=== PATIENT | male | born 1935 | race Caucasian/White ===

== ENCOUNTER 2017-01-29 07:54 | Inpatient (IN) | payer OTHER ==
[~2017-01-29] VITALS: Ht 182.9 cm; Wt 76.7 kg
[~2017-01-29 07:54] MED LIST: ASPEC81 PO; CPR500 PO; CRS20 PO; CSPOPS OPR; FENO160T PO; GABA-113 PO; GLUCAGON EMERGENCY IM; HYT/2 PO; INSDGIPEN SC; ISOS60TA25 PO; METO25TA56 PO; NTRGSL/4 UT; OXYC1TAB3 PO; PRLSR20 PO; SERT25TA PO
--- NOTE | 2017-01-29 08:29 | EMERGENCY ROOM VISIT NOTE ---
History First contact with patient: 07:59 Chief Complaint: HYPERGLYCEMIA Stated Complaint: ALTERED MENTAL STATUS/HYPERGLYCEMIA Nursing Triage Summary: Pt found outside this AM by [facility] walking [place] the [place]. No coat, no shoes. Dried blood to mouth, knees, right hand abrasion, and anterior head abrasion. Pt disoriented upon arrival to ED, 10 mins after arrival pt was able to state name and that he [place] with his daughter. BSG reading HIGH for ALS, 269 in ED. +4 pedal edema. History of Present Illness Mr. Arenas is a 81 M who came into the ED by ambulance from [place]. He was found outside of his apartment building, alone, laying on the ground without shoes. Patient's first language is [place], although he is able to tell me his name and can speak some Mongolian. Patient appears to have fallen and injured his knees and his head. He does not recall the fall and he cannot relate to me regarding the events leading up to the fall. Patient expresses that he lives with his daughter. The patient reports some pain in his knees. Review of Systems limited ROS due to mental status, see HPI Past Medical/Surgical History Medical Problems: (1) Fall Social History Smoking Status: Unknown if Ever Smoked Current/Historical Medications Scheduled Aspirin (Aspirin Ec), 81 MG PO DAILY Brimonidine Tartrate-Timolol M (Combigan), 1 DROP OP BID Clobetasol Propionate (Temovate), 1 APPLN TOP BID Finasteride (Proscar), 5 MG PO DAILY Furosemide (Lasix), 40 MG PO DAILY Gabapentin (Neurontin), 600 MG PO BID Insulin Glargine (Lantus), 40 UNITS SC QAM Insulin Lispro (Human) (Humalog Kwikpen), 10 UNITS SQ DAILYBB Insulin Lispro (Human) (Humalog Kwikpen), 8 UNITS SQ BIDM Metoprolol Tartrate (Lopressor) (Lopressor), 25 MG PO BID Nitroglycerin (Nitrostat), 0.4 MG UT PRN Omeprazole (Prilosec), 20 MG PO DAILY Ranitidine Hcl (Zantac), 150 MG PO BID Rosuvastatin Calcium (Crestor), 20 MG PO DAILY Sertraline (Zoloft), 25 MG PO DAILY Terazosin (Hytrin), 5 MG PO HS Triamcinolone Acet (Aristocort 0.1%), 1 APPLN TOP BID Physical Exam Vital Signs Date Time Temp Pulse Resp B/P (MAP) Pulse Ox O2 Delivery O2 Flow Rate FiO2 01/29/17 11:14 81 16 160/79 98 01/29/17 11:04 81 16 160/79 98 Room Air 01/29/17 10:57 98 Room Air 01/29/17 10:01 80 18 145/66 96 Room Air 01/29/17 09:05 77 17 126/67 95 Room Air 01/29/17 08:05 85 01/29/17 07:57 36.6 85 16 122/102 96 Room Air Physical Exam see below General Appearance: WD/WN, no apparent distress Head: normocephalic, atraumatic Eyes: + pertinent finding (cloudying of lens in bilateral eyes) Neck: supple, no adenopathy, thyroid normal Respiratory/Chest: chest non-tender, lungs clear, + decreased breath sounds Cardiovascular: regular rate, rhythm, no edema, no gallop, no JVD Abdomen / GI: normal bowel sounds, non tender, + distended Neurologic/Psych: + pertinent finding (oriented to person, but not to place or time ) Medical Decision & Procedures Laboratory Results 01/29/17 09:00 Red Blood Count 3.89, Mean Corpuscular Volume 93.1, Mean Corpuscular Hemoglobin 30.1, Mean Corpuscular Hemoglobin Concent 32.3, Mean Platelet Volume 11.1, Neutrophils (%) (Auto) 88.4, Lymphocytes (%) (Auto) 5.1, Monocytes (%) (Auto) 6.0, Eosinophils (%) (Auto) 0.1, Basophils (%) (Auto) 0.1, Neutrophils # (Auto) 14.04, Lymphocytes # (Auto) 0.81, Monocytes # (Auto) 0.96, Eosinophils # (Auto) 0.02, Basophils # (Auto) 0.02 01/29/17 09:00 Test 01/29/17 09:00 White Blood Count 15.89 K/uL (4.8-10.8) Red Blood Count 3.89 M/uL (4.7-6.1) Hemoglobin 11.7 g/dL (14.0-18.0) Hematocrit 36.2 % (42-52) Mean Corpuscular Volume 93.1 fL (80-100) Mean Corpuscular Hemoglobin 30.1 pg (25-34) Mean Corpuscular Hemoglobin Concent 32.3 g/dl (32-36) Platelet Count 206 K/uL (130-400) Mean Platelet Volume 11.1 fL (7.4-10.4) Neutrophils (%) (Auto) 88.4 % Lymphocytes (%) (Auto) 5.1 % Monocytes (%) (Auto) 6.0 % Eosinophils (%) (Auto) 0.1 % Basophils (%) (Auto) 0.1 % Neutrophils # (Auto) 14.04 K/uL (1.4-6.5) Lymphocytes # (Auto) 0.81 K/uL (1.2-3.4) Monocytes # (Auto) 0.96 K/uL (0.11-0.59) Eosinophils # (Auto) 0.02 K/uL (0-0.5) Basophils # (Auto) 0.02 K/uL (0-0.2) RDW Standard Deviation 48.8 fL (36.4-46.3) RDW Coefficient of Variation 14.5 % (11.5-14.5) Immature Granulocyte % (Auto) 0.3 % Immature Granulocyte # (Auto) 0.04 K/uL (0.00-0.02) Anion Gap 9.0 mmol/L (3-11) Estimated GFR () 33.6 Estimated GFR (Non- 29.0 BUN/Creatinine Ratio 22.3 (10-20) Calcium Level 8.6 mg/dl (8.5-10.1) Total Bilirubin 0.4 mg/dl (0.2-1) Direct Bilirubin 0.1 mg/dl (0-0.2) Aspartate Amino Transf (AST/SGOT) 19 U/L (15-37) Alanine Aminotransferase (ALT/SGPT) 22 U/L (12-78) Alkaline Phosphatase 96 U/L (45-117) Total Creatine Kinase 192 U/L (39-308) Creatine Kinase MB 2.9 ng/ml (0.5-3.6) Creatine Kinase MB Ratio 1.5 (0-3.0) Troponin I < 0.015 ng/ml (0-0.045) Total Protein 7.7 gm/dl (6.4-8.2) Albumin 3.2 gm/dl (3.4-5.0) Medications Administered Medications (Trade) Dose Ordered Sig/Nato Route Start Time Stop Time Status Last Admin Dose Admin Levofloxacin (Levaquin / D5W) 500 mg NOW STAT IV 01/29/17 09:51 01/29/17 09:56 DC 01/29/17 10:00 500 MG Cefepime HCl 1000 mg/Dextrose 111 ml @ 200 mls/hr ONE STAT IV 01/29/17 09:51 01/29/17 10:24 DC 01/29/17 11:00 200 MLS/HR Vancomycin HCl 1000 mg/Sodium Chloride 270 ml @ 125 mls/hr NOW STAT IV 01/29/17 09:51 01/29/17 12:00 01/29/17 11:01 125 MLS/HR ECG Rate (beats per minute): 86 Rhythm: normal sinus ED Course 815 History and Physical performed 825 Ordered labs and test; CT of the head w/o contrast, CBC, PRP, LFT, CKMB, Troponin, CK, EKG, CXR [address] and CXR 900 Reaccessed patient 915 Reviewed patients Labs 1030 Reaccessed patient using translation services Medical Decision 81 yo male comes into the ED after suffering a fall and injuring his knees and head. Considering the following differential; CVA, ACS, sepsis, rhabdomyolysis Contact with the patient is difficult and its unclear of this is due to language barrier, underlying dementia, or alter mental status from the fall. Will be working with case management to get a clearer picture of the patients past medical history. There are no available records at this time. The patient was found on the ground outside in the cold, alone outside of his apartment complex. Police did not provide a contact for family. Initial evaluation showed abrasions of bilateral knees and of his left hand. Patient also had a abrasion on the top of his head. He does not appear to have any fractures of the pelvis or extremities. Initial workup includes; CT w/o contrast, CBC, PRP, LFT, CK, CKMB, troponin, EKG , CXR. Would like to access for underlying causes for fall and subsequent consequences of the fall. Patient had a rectal temp of 36.6 on arrival and a blood glucose of 269. CT did not show an acute bleed. Patient was found to have a elevated WBC and signs on PNA on CXR. Treating the patient broadly for a pulmonary source; Levaquin, Vanco, Cefepime. Discussed admission with the hospitalist, patient is being admitted for a further work up of PNA and weakness. Family has been contacted by case management and son, Negro will be at the hospital by noon. Negro's phone #: [phone]. Patient also has been admitted previously to [facility], see medical # [id number]. Spoke with the patient through a translation service; patient does express some chest pain. Troponin and EKG were unremarkable. Will follow serial troponin. Impression Primary Impression: Pneumonia Additional Impression: Weakness Departure Information Referrals No Doctor, Assigned (PCP) Patient Instructions [facility] Problem Qualifiers
--- NOTE | 2017-01-29 08:53 | DIAGNOSTIC IMAGING REPORT ---
CT OF THE HEAD WITHOUT CONTRAST CLINICAL HISTORY: Head injury. Altered mental status. COMPARISON STUDY: No previous studies for comparison. CT DOSE: 537.48 mGy.cm TECHNIQUE: Helical axial images of the head were obtained without IV contrast. Automated exposure control was utilized for the study. A dose lowering technique was utilized adhering to the principles of ALARA. FINDINGS: No acute intracranial hemorrhage, midline shift or mass effect is present. Ventricular system is unremarkable for age. Basilar cisterns are patent. There are no extra-axial collections. There are no findings to suggest acute dural sinus thrombosis or acute territorial infarct. Mild white matter hypodensity suggests small vessel disease. There is no calvarial fracture. There is an 8 mm density within the left parietal scalp. Visualized portions of the sinuses and mastoid air cells are clear. IMPRESSION: 1. No acute intracranial findings. 2. No calvarial fracture. Electronically signed by: Oj Arellano M.D. 01/29/2017 8:51 AM Dictated Date/Time: 01/29/2017 8:41 AM
--- NOTE | 2017-01-29 09:00 | DIAGNOSTIC IMAGING REPORT ---
CHEST ONE VIEW PORTABLE CLINICAL HISTORY: Weakness. Fall. COMPARISON STUDY: No previous studies for comparison. FINDINGS: Lung volumes are normal. There is no pneumothorax or pleural effusion. Bibasilar opacities are present. Note is made of mild cardiomegaly without evidence of pulmonary edema. IMPRESSION: 1. Bibasilar opacities which favor atelectasis although pneumonia could appear similar. Radiographic follow-up is recommended. 2. Mild cardiomegaly without evidence of pulmonary edema. Electronically signed by: Oj Arellano M.D. 01/29/2017 8:58 AM Dictated Date/Time: 01/29/2017 8:51 AM
[2017-01-29 09:17] LABS: HEMATOCRIT 36.2 % (42-52); MEAN CELL VOLUME 93.1 fL (80-100); MEAN CORPUSCULAR HEMOGLOBIN 30.1 pg (25-34); MEAN CORPUSCULAR HGB CONC 32.3 g/dl (32-36); MEAN PLATELET VOLUME 11.1 fL (7.4-10.4); PLATELET COUNT 206 K/uL (130-400); RED BLOOD COUNT 3.89 M/uL (4.7-6.1); WHITE BLOOD COUNT 15.89 K/uL (4.8-10.8)
[2017-01-29 09:37] LABS: ALT/SGPT 22 U/L (12-78); BLOOD UREA NITROGEN 46 mg/dl (7-18); BUN/CREATININE RATIO 22.3 (10-20); CALCIUM 8.6 mg/dl (8.5-10.1); CARBON DIOXIDE 25 mmol/L (21-32); CHLORIDE 100 mmol/L (98-107); CREATININE 2.08 mg/dl (0.60-1.40); GLUCOSE 300 mg/dl (70-99); POTASSIUM 4.8 mmol/L (3.5-5.1); SODIUM 134 mmol/L (136-145)
[2017-01-29 09:42] LABS: ALKALINE PHOSPHATASE 96 U/L (45-117); AST/SGOT 19 U/L (15-37); CKMB/CK RATIO 1.5 (0-3.0)
[2017-01-29 09:45] LABS: BASO % 0.1 %; BASO ABS # 0.02 K/uL (0-0.2); COMPLETE YES; EOS % 0.1 %; IG% 0.3 %; LYMPH % 5.1 %; LYMPH ABS # 0.81 K/uL (1.2-3.4); NEUT % 88.4 %
[2017-01-29] MEDS ORDERED: LEVAQUIN 500MG / 100ML D5W IV STA (09:51)
[2017-01-29] MEDS ORDERED: CEFEPIME IV 1,000 MG in DEXTROSE 5% 100ML 100 ML IV STA (09:51)
[2017-01-29] MEDS ORDERED: VANCOMYCIN INJ 1,000 MG in SODIUM CHLORIDE 0.9% 250ML 250 ML IV STA (09:51)
--- NOTE | 2017-01-29 10:20 | EMERGENCY ROOM VISIT NOTE ---
ED Visit Note First contact with patient: 07:58 Resident Physician Supervision Note: I interviewed and examined the patient. Discussed with Dr. Dunbar and agree with findings and plan as documented in the note. Documented By: Andrea Medrano Current/Historical Medications Unable to Obtain Active Prescriptions or Reported Meds Vital Signs Date Time Temp Pulse Resp B/P (MAP) Pulse Ox O2 Delivery O2 Flow Rate FiO2 01/29/17 10:01 80 18 145/66 96 Room Air 01/29/17 09:05 77 17 126/67 95 Room Air 01/29/17 08:05 85 01/29/17 07:57 36.6 85 16 122/102 96 Room Air Laboratory Results 01/29/17 09:00 Red Blood Count 3.89, Mean Corpuscular Volume 93.1, Mean Corpuscular Hemoglobin 30.1, Mean Corpuscular Hemoglobin Concent 32.3, Mean Platelet Volume 11.1, Neutrophils (%) (Auto) 88.4, Lymphocytes (%) (Auto) 5.1, Monocytes (%) (Auto) 6.0, Eosinophils (%) (Auto) 0.1, Basophils (%) (Auto) 0.1, Neutrophils # (Auto) 14.04, Lymphocytes # (Auto) 0.81, Monocytes # (Auto) 0.96, Eosinophils # (Auto) 0.02, Basophils # (Auto) 0.02 01/29/17 09:00 Test 01/29/17 09:00 White Blood Count 15.89 K/uL (4.8-10.8) Red Blood Count 3.89 M/uL (4.7-6.1) Hemoglobin 11.7 g/dL (14.0-18.0) Hematocrit 36.2 % (42-52) Mean Corpuscular Volume 93.1 fL (80-100) Mean Corpuscular Hemoglobin 30.1 pg (25-34) Mean Corpuscular Hemoglobin Concent 32.3 g/dl (32-36) Platelet Count 206 K/uL (130-400) Mean Platelet Volume 11.1 fL (7.4-10.4) Neutrophils (%) (Auto) 88.4 % Lymphocytes (%) (Auto) 5.1 % Monocytes (%) (Auto) 6.0 % Eosinophils (%) (Auto) 0.1 % Basophils (%) (Auto) 0.1 % Neutrophils # (Auto) 14.04 K/uL (1.4-6.5) Lymphocytes # (Auto) 0.81 K/uL (1.2-3.4) Monocytes # (Auto) 0.96 K/uL (0.11-0.59) Eosinophils # (Auto) 0.02 K/uL (0-0.5) Basophils # (Auto) 0.02 K/uL (0-0.2) RDW Standard Deviation 48.8 fL (36.4-46.3) RDW Coefficient of Variation 14.5 % (11.5-14.5) Immature Granulocyte % (Auto) 0.3 % Immature Granulocyte # (Auto) 0.04 K/uL (0.00-0.02) Anion Gap 9.0 mmol/L (3-11) Estimated GFR () 33.6 Estimated GFR (Non- 29.0 BUN/Creatinine Ratio 22.3 (10-20) Calcium Level 8.6 mg/dl (8.5-10.1) Total Bilirubin 0.4 mg/dl (0.2-1) Direct Bilirubin 0.1 mg/dl (0-0.2) Aspartate Amino Transf (AST/SGOT) 19 U/L (15-37) Alanine Aminotransferase (ALT/SGPT) 22 U/L (12-78) Alkaline Phosphatase 96 U/L (45-117) Total Creatine Kinase 192 U/L (39-308) Creatine Kinase MB 2.9 ng/ml (0.5-3.6) Creatine Kinase MB Ratio 1.5 (0-3.0) Troponin I < 0.015 ng/ml (0-0.045) Total Protein 7.7 gm/dl (6.4-8.2) Albumin 3.2 gm/dl (3.4-5.0) Medications Administered Medications (Trade) Dose Ordered Sig/Nato Route Start Time Stop Time Status Last Admin Dose Admin Levofloxacin (Levaquin / D5W) 500 mg NOW STAT IV 01/29/17 09:51 01/29/17 09:56 DC 01/29/17 10:00 500 MG Departure Information Impression Primary Impression: Pneumonia Additional Impression: Weakness Prescriptions Unable to Obtain Active Prescriptions or Reported Meds Referrals Manjeet Mosley III, M.D. (PCP) Patient Instructions My [facility] Problem Qualifiers
[2017-01-29] MEDS ORDERED: CONSULT PHARMACY STA (10:33)
[2017-01-29] MEDS ORDERED: PHARMACY GLYCEMIC MGMT CONSULT STA (10:36)
[2017-01-29] MEDS ORDERED: GLUCOSE 40% GEL 15 GM TUBE PO PRN (10:45)
[2017-01-29] MEDS ORDERED: GLUCAGON FOR INJ 1 MG VIAL SQ PRN (10:45)
[2017-01-29] MEDS ORDERED: GLUCOSE 10 TABS/TUBE PO PRN (10:45)
[2017-01-29] MEDS ORDERED: DEXTROSE 50% 50 ML SYR IV PRN (10:45)
[2017-01-29 10:57] VITALS: O2SAT 98; BMI 21.8
[2017-01-29] MEDS ORDERED: ONDANSETRON INJ 2 MG/ML 2 ML VIAL IV PRN (11:00)
[2017-01-29] MEDS ORDERED: CLOB1OIN2 TOP (11:44)
[2017-01-29] MEDS ORDERED: INSDGI SC (11:44)
[2017-01-29] MEDS ORDERED: TRMCR130WC TOP (11:44)
[2017-01-29] MEDS ORDERED: TERA5CAP PO (11:44)
[2017-01-29] MEDS ORDERED: BRIM0.2S OP (11:44)
[2017-01-29] MEDS ORDERED: METO25TA56 PO (11:44)
[2017-01-29] MEDS ORDERED: FRS/40 PO (11:44)
[2017-01-29] MEDS ORDERED: RANI150T3 PO (11:44)
[2017-01-29] MEDS ORDERED: INSU100I2 SQ ×2 (11:44)
[2017-01-29] MEDS ORDERED: ASPI81TA28 PO (11:44)
[2017-01-29] MEDS ORDERED: FINA5TAB PO (11:44)
[2017-01-29] MEDS ORDERED: NITR0.4S UT (11:44)
[2017-01-29] MEDS ORDERED: GABA-113 PO (11:44)
[2017-01-29] MEDS ORDERED: OMEP20CA59 PO (11:44)
[2017-01-29] MEDS ORDERED: SERT25TA PO (11:44)
[2017-01-29] MEDS ORDERED: ROSU20TA PO (11:44)
[2017-01-29] MEDS ORDERED: VANCOMYCIN CONSULT ACTIVE PRN (12:15)
[2017-01-29] MEDS ORDERED: DOXYCYCLINE PHARMACY CONSULT IN PROGRESS PRN (12:15)
[2017-01-29] MEDS ORDERED: PIPERACILL/TAZOBAC CONSULT ACTIVE PRN (12:15)
[2017-01-29] MEDS ORDERED: PIPERACILL/TAZOBAC IV 3.375 GM in DEXTROSE 5% 100ML IV ONE (12:45)
[2017-01-29] MEDS: INSULIN ASPART 100 UNITS/ML 3 ML PEN SC SCH ×3 (13:12→20:37)
[2017-01-29] MEDS ORDERED: SODIUM CHLORIDE 0.9% 1000ML 1,000 ML IV SCH (13:30)
--- NOTE | 2017-01-29 14:33 | Pharmacy Progress Note ---
Glycemic Control Intl Consult Date of Service Jan 29, 2017. Scope Glycemic Pharmacist consulted by Dr Reyes on 01/29 for glycemic control and to write orders per [facility] inpatient glycemic control protocol Objective Weight (Kilograms): 73.000 Accuchecks BSG (last 24hrs): Test 01/29/17 09:00 01/29/17 13:01 Random Glucose 300 mg/dl (70-99) Bedside Glucose 320 mg/dl (70-99) Laboratory Data (last 24hrs) Test 01/29/17 09:00 Anion Gap 9.0 mmol/L BUN/Creatinine Ratio 22.3 Blood Urea Nitrogen 46 mg/dl Creatinine 2.08 mg/dl Potassium Level 4.8 mmol/L Sodium Level 134 mmol/L White Blood Count 15.89 K/uL Red Blood Count 3.89 M/uL Hemoglobin 11.7 g/dL Hematocrit 36.2 % Mean Corpuscular Volume 93.1 fL Mean Corpuscular Hemoglobin 30.1 pg Mean Corpuscular Hemoglobin Concent 32.3 g/dl Platelet Count 206 K/uL Mean Platelet Volume 11.1 fL Neutrophils (%) (Auto) 88.4 % Lymphocytes (%) (Auto) 5.1 % Monocytes (%) (Auto) 6.0 % Eosinophils (%) (Auto) 0.1 % Basophils (%) (Auto) 0.1 % Neutrophils # (Auto) 14.04 K/uL Lymphocytes # (Auto) 0.81 K/uL Monocytes # (Auto) 0.96 K/uL Eosinophils # (Auto) 0.02 K/uL Basophils # (Auto) 0.02 K/uL Recent Pertinent Medications Outpatient Anti-diabetic Regimen: * lantus 40 QD; humalog 10 units with breakfast/ 8 units with lunch and dinner; CF 1:40 if >180 at bedtime * A1c = 8.4 % 06/05/16 Risk Factors for Insulin Resistance: * Infection: possible pneumonia/sepsis * Diet: T2DM Assessment & Plan ASSESSMENT: * Patient came to ER altered after fall this morning. It is unknown if he took his morning dose of lantus. For this reason, will employ a lantus scale at dinner to ensure adequate coverage safely. PLAN FOR INPATIENT GLYCEMIC CONTROL: * Holding outpatient oral diabetes medications * Basal insulin with LANTUS 20 units SQ at dinner (if BSG < 200) or 40 units SQ at dinner (if BSG > 200) * Basal insulin with LANTUS 21 units SQ BID starting tomorrow * Correctional Insulin with NOVOLOG per scale ACHS or Q6hrs while NPO * Goal Range: Low 120 mg/dL - High 160 mg/dL * Correction Factor: 20 mg/dL/unit * Nutritional / Prandial insulin per carb ratio of 1 unit per 6 grams CHO consumed * Please note that the plan above was derived based on current level of insulin resistance and hospital stress. These recommendations are appropriate for inpatient admission only. Plan of care upon discharge will need to be reassessed to avoid potential outpatient hypo/hyperglycemia. Thank you.
[2017-01-29] MEDS ORDERED: INFLUENZA ADMINISTRATION CHARGE ONE (15:15)
[2017-01-29] MEDS ORDERED: PNEUMOCOCCAL ADMINISTRATION CHARGE ONE (15:15)
[2017-01-29] MEDS ORDERED: INFLUENZA VIRUS QUAD VACCINE 0.5 ML SYR IM. ONE (15:15)
[2017-01-29] MEDS ORDERED: PNEUMOCOCCAL POLYSACCHARIDES 25 MCG/0.5 ML VIAL/SYR IM. ONE (15:15)
--- NOTE | 2017-01-29 15:24 | DIAGNOSTIC IMAGING REPORT ---
LEFT KNEE 2 VIEWS CLINICAL HISTORY: Left knee pain. FINDINGS: AP and lateral views of the left knee are obtained. No prior studies are available for comparison at the time of dictation. The skeletal structures are osteopenic. No fracture is seen. There is mild to moderate tricompartmental degenerative joint space narrowing, greatest at the patellofemoral articulation. Chondrocalcinosis is suggested in the lateral compartment. There are small marginal osteophytes. No joint effusion is seen. Mild soft tissue swelling is observed around ankle. Advanced atherosclerotic calcification is seen in the regional arteries. IMPRESSION: 1. Soft tissue swelling with no radiographic evidence of left knee fracture. 2. Osteopenia and degenerative change as above. Electronically signed by: Chidi rBadshaw M.D. 01/29/2017 3:22 PM Dictated Date/Time: 01/29/2017 3:21 PM
--- NOTE | 2017-01-29 15:25 | DIAGNOSTIC IMAGING REPORT ---
BONY ORBITS 3 VIEWS CLINICAL HISTORY: MRI clearance. FINDINGS: 3 views of the bony orbits are obtained. Correlation is made with CT of the brain dated 01/29/2017. There are 2 small metallic foreign bodies identified in the right orbital space. The bony orbits are intact as imaged. The visualized paranasal sinuses and the mastoid air cells appear clear. The imaged calvarium appears intact. IMPRESSION: There are 2 small radiodense metallic foreign bodies identified in the right orbital space. These were also seen by CT on 01/29/2017. Electronically signed by: Chidi Bradshaw M.D. 01/29/2017 3:24 PM Dictated Date/Time: 01/29/2017 3:22 PM
--- NOTE | 2017-01-29 15:28 | DIAGNOSTIC IMAGING REPORT ---
L SHOULDER MIN 2 VIEWS ROUTINE CLINICAL HISTORY: Left shoulder pain status post trauma COMPARISON: None. DISCUSSION: No fractures or dislocations are visualized. No destructive lesions are visualized. There are no visible particular calcifications. IMPRESSION: No fractures or dislocations identified. Electronically signed by: Jose Manuel Mcguire M.D. 01/29/2017 3:26 PM Dictated Date/Time: 01/29/2017 3:25 PM
[2017-01-29] MEDS ORDERED: PHARMACY GLYCEMIC MGMT CONSULT PRN (15:30)
--- NOTE | 2017-01-29 15:31 | DIAGNOSTIC IMAGING REPORT ---
RIBS BILATERAL 8 VIEWS CLINICAL HISTORY: Rib pain status post trauma COMPARISON STUDY: Chest x-ray dated 01/29/2017 FINDINGS: There is no pneumothorax. No right-sided rib fractures are visualized. There is an age-indeterminate fracture the left fourth rib laterally. Please correlate with the patient's site of pain. There is subsegmental atelectatic changes at the left lung base. IMPRESSION: 1. No evidence of pneumothorax 2. Age-indeterminate nondisplaced fracture of the left fourth rib laterally Electronically signed by: Jose Manuel Mcguire M.D. 01/29/2017 3:30 PM Dictated Date/Time: 01/29/2017 3:26 PM
--- NOTE | 2017-01-29 15:40 | DIAGNOSTIC IMAGING REPORT ---
LEFT HUMERUS 2 VIEWS CLINICAL HISTORY: Left arm pain. Fall. FINDINGS: AP and lateral views of the left humerus are obtained. No prior studies are available for comparison at the time of dictation. The skeletal structures are osteopenic. There is no radiographic evidence of left humeral fracture. The shoulder and elbow joints are grossly maintained. An IV catheter is present in the antecubital fossa. The overlying soft tissues are normal in appearance. The imaged left lung parenchyma appears clear. IMPRESSION: Osteopenia with no radiographic evidence of left humeral fracture. Electronically signed by: Chidi Bradshaw M.D. 01/29/2017 3:39 PM Dictated Date/Time: 01/29/2017 3:39 PM
--- NOTE | 2017-01-29 15:43 | DIAGNOSTIC IMAGING REPORT ---
LEFT HIP 2 VIEWS; LEFT FEMUR 3 VIEWS CLINICAL HISTORY: Fall with left leg pain. FINDINGS: AP and frog-leg views of the left hip with AP, frog-leg, and lateral views of the left femur are obtained. No prior studies are available for comparison at the time of dictation. The skeletal structures are osteopenic. There is no radiographic evidence of left femoral fracture. The visualized left hemipelvis appears intact. Mild arthritic change is seen in the left hip and knee joints. Mild sclerotic change is observed in the left sacroiliac joint. Lumbosacral spondylosis is partially imaged. There is advanced atherosclerotic calcification of the left lower extremity arteries. The overlying soft tissues are within normal limits. IMPRESSION: Osteopenia with no radiographic evidence of fracture involving the left hip or the left femur. Electronically signed by: Chidi Bradshaw M.D. 01/29/2017 3:41 PM Dictated Date/Time: 01/29/2017 3:40 PM
--- NOTE | 2017-01-29 15:56 | DIAGNOSTIC IMAGING REPORT ---
ULTRASOUND BILATERAL LOWER EXTREMITY VENOUS CLINICAL HISTORY: Change in mental status. Leg swelling. COMPARISON STUDY: No priors. TECHNIQUE: Real-time, grayscale, and color Doppler sonography of the deep veins of the right and left lower extremity was performed from the inguinal crease to the calf. Compression and augmentation were utilized. FINDINGS: There is no sonographic evidence of acute deep venous thrombosis identified in the right or left lower extremity. Minimal thickening is suggested involving the wall of the right common femoral and superficial femoral veins. This likely represents trace chronic thrombus. The common femoral, superficial femoral, and popliteal veins are patent and normally compressible bilaterally. The greater saphenous vein and the profunda femoris vein at the junction with the common femoral vein are clear in both legs. The visualized calf veins are patent bilaterally. IMPRESSION: 1. There is no sonographic evidence of acute deep venous thrombosis identified in the right or left lower extremity. 2. Trace chronic thrombus is suggested within the right common femoral and superficial femoral veins. Electronically signed by: Chidi Bradshaw M.D. 01/29/2017 3:55 PM Dictated Date/Time: 01/29/2017 3:53 PM
[2017-01-29 16:23] VITALS: BP 138/72; PULSE 83; TEMP 36.8; O2SAT 93
[2017-01-29] MEDS ORDERED: INSULIN GLARGINE SOLOSTAR 100 UNITS/ML 3 ML PEN SC ONE (17:00)
[2017-01-29] MEDS: DOXYCYCLINE HYCLATE 100 MG in DEXTROSE 5% 100ML IV SCH (18:03)
[2017-01-29 18:29] LABS: CKMB/CK RATIO 1.3 (0-3.0)
[2017-01-29 19:44] VITALS: BP 130/67; PULSE 82; TEMP 37.2; O2SAT 96
[2017-01-29 20:00] VITALS: O2SAT 96
[2017-01-29] MEDS: PIPERACILL/TAZOBAC IV 3.375 GM in DEXTROSE 5% 100ML IV SCH (20:06)
[2017-01-29] MEDS: CLOBETASOL PROPIONATE 0.05% OINT 15 GM TUBE EXT SCH (20:26)
[2017-01-29] MEDS: GABAPENTIN 600 MG TAB PO SCH (20:28)
[2017-01-29] MEDS: METOPROLOL TARTRATE 25 MG TAB PO SCH (20:28)
[2017-01-29] MEDS: RANITIDINE HCL 150 MG TAB PO SCH (20:29)
--- NOTE | 2017-01-29 21:33 | History and Physical ---
History & Physical Date & Time of Service: Jan 29, 2017 at 20:58 Chief Complaint: FALL Primary Care Physician: Manjeet Mosley III, M.D. History of Present Illness Source: patient, family (nephew Negro) 81 year old male with history of CAD, DM 2 on Insulin, DM Retinopathy/Glaucoma, Hypertension, Memory Loss and other problems noted below presenting with a fall. Patient follows with Dr. Mosley for PCP and [facility]. History obtained mostly from patient, using golf professional via [employer]. Later on supplemented by interviewing patient's nephew Negro over the phone. Patient apparently has very poor vision and should not be walking outside alone as per nephew. This morning patient states he went out of the house to go somewhere "in the town". The nephew mentions patient must have been confused this morning and is wondering if one of his medications is making the patient confused. Patient apparently was walking down a few steps when he lost his balance and fell on the floor. He was to weak to get up, was found on the ground, without shoes. Hence was brought to the ED. Patient's Ct head negative for acute process. CXR shows bibasilar opacities: pneumonia vs. atelectasis WBC 15k. He was given Vanco + Cefepime at the ER. On exam, patient was not in distress, appears comfortable. Main report is left sided chest wall pain, left upper arm pain and left leg pain , worse with movement. Denies dyspnea, nausea, palpitations, dizziness. Denies other symptoms. States he was feeling fine prior to his fall. No other symptoms. Family History Diabetes mellitus BROTHER BROTHER FH: coronary artery disease FATHER Social History Smoking Status: Never Smoker Smokeless Tobacco Use: No Alcohol Use: none Drug Use: none Marital Status: Housing status: lives with family Allergies Coded Allergies: Metformin (Unverified Allergy, Unknown, ., 01/29/17) Salicylates (Unverified Allergy, Unknown, ., 01/29/17) Home Medications Scheduled Aspirin (Aspirin Ec), 81 MG PO DAILY Brimonidine Tartrate-Timolol M (Combigan), 1 DROP OP BID Clobetasol Propionate (Temovate), 1 APPLN TOP BID Finasteride (Proscar), 5 MG PO DAILY Furosemide (Lasix), 40 MG PO DAILY Gabapentin (Neurontin), 600 MG PO BID Insulin Glargine (Lantus), 40 UNITS SC QAM Insulin Lispro (Human) (Humalog Kwikpen), 10 UNITS SQ DAILYBB Insulin Lispro (Human) (Humalog Kwikpen), 8 UNITS SQ BIDM Metoprolol Tartrate (Lopressor) (Lopressor), 25 MG PO BID Nitroglycerin (Nitrostat), 0.4 MG UT PRN Omeprazole (Prilosec), 20 MG PO DAILY Ranitidine Hcl (Zantac), 150 MG PO BID Rosuvastatin Calcium (Crestor), 20 MG PO DAILY Sertraline (Zoloft), 25 MG PO DAILY Terazosin (Hytrin), 5 MG PO HS Triamcinolone Acet (Aristocort 0.1%), 1 APPLN TOP BID Review of Systems Constitutional- no fever; no weight loss Eyes- no acute visual changes ENT- no sinus drainage; no pharyngitis Pulmonary- no cough, no wheezing, no shortness of breath Cardiac- (+) chest wall pain, no palpitations, no orthopnea, no dependent edema GI- no nausea, no vomiting, no diarrhea, no melena, no hematochezia - no dysuria, no hematuria Musculoskeletal- (+) as noted above Derm- no rashes, no new skin lesions, no changing skin lesions Hematologic- no unusual bruising, no unusual bleeding Lymphatics- no adenopathy Endocrine- no polyuria or polydipsia; no heat or cold intolerance Neuro- no headaches, no focal neurologic symptoms Psych- no anxiety, no depression Physical Exam Vital Signs Date Time Temp Pulse Resp B/P (MAP) Pulse Ox O2 Delivery O2 Flow Rate FiO2 01/29/17 19:44 37.2 82 15 130/67 (88) 96 Room Air 01/29/17 16:23 36.8 83 19 138/72 (94) 93 Room Air 01/29/17 11:14 81 16 160/79 98 01/29/17 11:04 81 16 160/79 98 Room Air 01/29/17 10:57 98 Room Air 01/29/17 10:01 80 18 145/66 96 Room Air 01/29/17 09:05 77 17 126/67 95 Room Air 01/29/17 08:05 85 01/29/17 07:57 36.6 85 16 122/102 96 Room Air General Appearance: WD/WN, no apparent distress Head: normocephalic, atraumatic Eyes: normal inspection, PERRL, EOMI, sclerae normal ENT: normal ENT inspection, hearing grossly normal, TMs normal, pharynx normal Neck: supple, no adenopathy, thyroid normal, no JVD, trachea midline Respiratory/Chest: chest non-tender, lungs clear, normal breath sounds, no respiratory distress, no accessory muscle use Cardiovascular: regular rate, rhythm, no gallop, no JVD, no murmur, normal peripheral pulses Abdomen/GI: normal bowel sounds, non tender, soft, no organomegaly Back: normal inspection, no CVA tenderness Extremities/Musculoskelatal: + pertinent finding ((+) grade 1 lower leg edema) Neurologic/Psych: no motor/sensory deficits, alert, normal mood/affect, normal reflexes, oriented x 3, + pertinent finding ((+) poor vision- counting fingers only) Skin: normal color, warm/dry, no rash Lymphatic: no adenopathy Diagnostics Laboratory Results Results Past 24 Hours Test 01/29/17 09:00 01/29/17 13:01 01/29/17 16:10 01/29/17 17:51 Range/Units White Blood Count 15.89 4.8-10.8 K/uL Red Blood Count 3.89 4.7-6.1 M/uL Hemoglobin 11.7 14.0-18.0 g/dL Hematocrit 36.2 42-52 % Mean Corpuscular Volume 93.1 80-100 fL Mean Corpuscular Hemoglobin 30.1 25-34 pg Mean Corpuscular Hemoglobin Concent 32.3 32-36 g/dl Platelet Count 206 130-400 K/uL Mean Platelet Volume 11.1 7.4-10.4 fL Neutrophils (%) (Auto) 88.4 % Lymphocytes (%) (Auto) 5.1 % Monocytes (%) (Auto) 6.0 % Eosinophils (%) (Auto) 0.1 % Basophils (%) (Auto) 0.1 % Neutrophils # (Auto) 14.04 1.4-6.5 K/uL Lymphocytes # (Auto) 0.81 1.2-3.4 K/uL Monocytes # (Auto) 0.96 0.11-0.59 K/uL Eosinophils # (Auto) 0.02 0-0.5 K/uL Basophils # (Auto) 0.02 0-0.2 K/uL RDW Standard Deviation 48.8 36.4-46.3 fL RDW Coefficient of Variation 14.5 11.5-14.5 % Immature Granulocyte % (Auto) 0.3 % Immature Granulocyte # (Auto) 0.04 0.00-0.02 K/uL Sodium Level 134 136-145 mmol/L Potassium Level 4.8 3.5-5.1 mmol/L Chloride Level 100 98-107 mmol/L Carbon Dioxide Level 25 21-32 mmol/L Anion Gap 9.0 3-11 mmol/L Blood Urea Nitrogen 46 7-18 mg/dl Creatinine 2.08 0.60-1.40 mg/dl Estimated GFR () 33.6 Estimated GFR (Non- 29.0 BUN/Creatinine Ratio 22.3 10-20 Random Glucose 300 70-99 mg/dl Calcium Level 8.6 8.5-10.1 mg/dl Total Bilirubin 0.4 0.2-1 mg/dl Direct Bilirubin 0.1 0-0.2 mg/dl Aspartate Amino Transf (AST/SGOT) 19 15-37 U/L Alanine Aminotransferase (ALT/SGPT) 22 12-78 U/L Alkaline Phosphatase 96 45-117 U/L Total Creatine Kinase 192 206 39-308 U/L Creatine Kinase MB 2.9 2.7 0.5-3.6 ng/ml Creatine Kinase MB Ratio 1.5 1.3 0-3.0 Troponin I < 0.015 < 0.015 0-0.045 ng/ml Total Protein 7.7 6.4-8.2 gm/dl Albumin 3.2 3.4-5.0 gm/dl Bedside Glucose 320 255 70-99 mg/dl Microbiology Results 01/29/17 Blood Culture, Received Pending 01/29/17 Blood Culture, Received Pending Diagnostic Radiology [~ rep ct add3]] CHEST ONE VIEW PORTABLE CLINICAL HISTORY: Weakness. Fall. COMPARISON STUDY: No previous studies for comparison. FINDINGS: Lung volumes are normal. There is no pneumothorax or pleural effusion. Bibasilar opacities are present. Note is made of mild cardiomegaly without evidence of pulmonary edema. IMPRESSION: 1. Bibasilar opacities which favor atelectasis although pneumonia could appear similar. Radiographic follow-up is recommended. 2. Mild cardiomegaly without evidence of pulmonary edema. Electronically signed by: Oj Arellano M.D. 01/29/2017 8:58 AM EKG HR 84, normal sinus rhythm,no signs of acute ischemia. Impression Assessment and Plan 81 year old male with history of CAD, DM 2 on Insulin, DM Retinopathy/Glaucoma, Hypertension, Memory Loss and other problems noted below presenting with a fall. LEFT 4TH RIB FRACTURE S/P FALL, LIKELY MECHANICAL - CT head: no acute process xray of the humerus, hip and knee no acute fractures - Pain Management, PRN analgesics Incentive Spirometry - PT/OT eval POSSIBLE PNEUMONIA, BILATERAL BASES - sputum cultures - empiric Zosyn and Doxycycline - Speech therapy evaluation ACUTE RENAL FAILURE ON CKD III - given IV fluids - check crea in AM hold Lasix HYPERGLYCEMIA, DM 2 WITH DM NEUROPATHY, RETINOPATHY - usually on Lantus 40 units - ISS and Pharmacy Glycemic Control consult HISTORY OF CAD - chest pain likely from rib fractures check echo and cardiac markers continue Aspirin and Metoprolol MEMORY LOSS PER RECORDS - patient oriented x2, answering questions appropriately - on Zoloft CHRONIC LOWER EXTREMITY EDEMA - Doppler US of the legs: negative DVT prophylaxis patient has bleeding from scrapes on the legs- hold heparin/lovenox today, initiate when there is no active bleeding patient has bilateral leg edema- hold SCDs Full Code per nephew Disposition pending lives at home with daughter will need PT/OT evaluation ff up with Dr. Mosley for PCP Advanced Directives Existing Living Will: No Existing Power of E Commerce Specialist: No VTE Prophylaxis VTE Risk Assessment Done? Y/N: Yes Risk Level: Moderate
[2017-01-29 23:56] LABS: CKMB/CK RATIO 0.9 (0-3.0)
[2017-01-29 23:59] VITALS: O2SAT 96
[2017-01-30] VITALS (12 sets, daily range): BP systolic 111–139; BP diastolic 59–75; PULSE 71–81; TEMP 36.8–37.3; O2SAT 93–97; Ht 182.9 cm; Wt 76.7 kg
[2017-01-30 00:11] LABS: URINE APPEARANCE CLEAR (CLEAR); URINE BILIRUBIN NEG (NEG); URINE COLOR YELLOW; URINE NITRITE NEG (NEG); URINE SPECIFIC GRAVITY 1.022 (1.000-1.030); UROBILINOGEN NEG (NEG)
[2017-01-30 00:19] LABS: MANUAL MICROSCOPIC REQUIRED? NO; REVIEW REQ? NO
[2017-01-30] MEDS: PIPERACILL/TAZOBAC IV 3.375 GM in DEXTROSE 5% 100ML IV SCH ×3 (01:52→18:02)
[2017-01-30] MEDS ORDERED: INSULIN ASPART 100 UNITS/ML 3 ML PEN SC ONE (02:00)
[2017-01-30] MEDS: DOXYCYCLINE HYCLATE 100 MG in DEXTROSE 5% 100ML IV SCH ×2 (03:38→16:05)
[2017-01-30] MEDS: INSULIN ASPART 100 UNITS/ML 3 ML PEN SC SCH ×6 (03:43→21:07)
[2017-01-30] MEDS: ACETAMINOPHEN 500 MG TAB PO PRN (05:01)
[2017-01-30 06:18] LABS: BASO % 0.1 %; BASO ABS # 0.01 K/uL (0-0.2); COMPLETE YES; EOS % 0.5 %; HEMATOCRIT 30.7 % (42-52); IG% 0.3 %; LYMPH % 11.7 %; LYMPH ABS # 1.08 K/uL (1.2-3.4); MEAN CELL VOLUME 92.7 fL (80-100); MEAN CORPUSCULAR HEMOGLOBIN 30.2 pg (25-34); MEAN CORPUSCULAR HGB CONC 32.6 g/dl (32-36); MEAN PLATELET VOLUME 10.7 fL (7.4-10.4); MONO % 12.1 %; NEUT % 75.3 %; PLATELET COUNT 183 K/uL (130-400); RED BLOOD COUNT 3.31 M/uL (4.7-6.1); WHITE BLOOD COUNT 9.27 K/uL (4.8-10.8)
[2017-01-30 06:35] LABS: ESTIMATED AVERAGE GLUCOSE 203 mg/dl; HA1C FLAG Normal (Normal)
[2017-01-30 06:53] LABS: BUN/CREATININE RATIO 20.7 (10-20); CALCIUM 8.1 mg/dl (8.5-10.1); CREATININE 1.9 mg/dl (0.60-1.40); POTASSIUM 3.9 mmol/L (3.5-5.1)
[2017-01-30] MEDS ORDERED: PERFLUTREN LIPID MICROSPHERE (DEFINITY) IV ONE (08:48)
[2017-01-30] MEDS: ASPIRIN 81 MG ECTAB PO SCH (08:55)
[2017-01-30] MEDS: METOPROLOL TARTRATE 25 MG TAB PO SCH ×2 (08:55→21:08)
[2017-01-30] MEDS: PANTOprazole SOD 40 MG TAB PO SCH (08:55)
[2017-01-30] MEDS: SERTRALINE HCL 50 MG TAB PO SCH (08:55)
[2017-01-30] MEDS: GABAPENTIN 600 MG TAB PO SCH ×2 (08:55→21:07)
[2017-01-30] MEDS: RANITIDINE HCL 150 MG TAB PO SCH ×2 (08:55→21:07)
[2017-01-30] MEDS: CLOBETASOL PROPIONATE 0.05% OINT 15 GM TUBE EXT SCH ×2 (08:55→21:08)
[2017-01-30] MEDS: FINASTERIDE 5 MG TAB PO SCH (08:55)
--- NOTE | 2017-01-30 08:57 | Clinical Documentation Query ---
CLINICAL DOCUMENTATION QUERY QUERY 1 OF 2 81 M who came into the ED by ambulance from [place]. He was found outside of his apartment building, alone, laying on the ground without shoes. In your clinical opinion is this patient being managed for: ( x ) Encephalopathy POSSIBLE, DUE TO PNEUMONIA OR METABOLIC ( ) Not Agree ( ) Other explanation of clinical findings (Please Explain) ( ) Unable to determine (Please Define) ( ) Need to Discuss The medical record reflects the following clinical findings, treatment, and risk factors. Clinical Indicators: Altered mental status, disoriented, fall Treatment: CT head Risk Factors: Age, DM, pneumonia QUERY 2 OF 2 In your clinical opinion is this patient being managed for: ( ) Chronic diastolic (congestive) heart failure ( X ) Not Agree ( ) Other explanation of clinical findings (Please Explain) ( ) Unable to determine (Please Define) ( ) Need to Discuss The medical record reflects the following clinical findings, treatment, and risk factors. Clinical Indicators: Echo 01/31/11 demonstrates mild concentric left ventricular hypertrophy, grade I diastolic dysfunction. EF = 60-65% Treatment: Home Lasix 40mg PO, I&O Risk Factors: Age, DM, HTN, pneumonia Please clarify and document your clinical opinion in the progress notes and discharge summary. Terms such as "probable", "suspected", "likely", "questionable", "possible", or "still to be ruled out" are acceptable. IF IN AGREEMENT, YOU MUST DOCUMENT ABOVE DIAGNOSTIC STATEMENT IN DAILY PROGRESS NOTES AND DISCHARGE SUMMARY. This document is not part of the patient's record. Thank You, Yadi Medina RN [phone]
[2017-01-30] MEDS ORDERED: FUROSEMIDE 40 MG TAB PO SCH (09:00)
--- NOTE | 2017-01-30 11:11 | Pharmacy Progress Note ---
Pharmacy Glycemic Short Note 2 Date of Service Jan 30, 2017. OUTPATIENT ANTIDIABETIC REGIMEN: confirmed without outpatient MTM records * Lantus 40 units daily * Humalog 10 units with breakfast/ 8 units with lunch and dinner; CF 1:40 if > 180 at bedtime * A1c = 8.4 % on 06/05/16 and 8.7% on 01/29/17 ASSESSMENT: * Mr. Arenas received 71 units of insulin yesterday with BSGs falling from 320 - > 76 since admission * I suspect that he missed his dose of Lantus yesterday since BSGs have improved after receiving it * He continues on doxy and Zosyn for pneumonia; SCr slowly improving * I placed his Lantus on hold this AM since BSGs are on the lower side and the dose he received yesterday would still be on board * If BSGs improve by lunch, will plan to resume the Lantus at the current BID dose PLAN FOR INPATIENT GLYCEMIC CONTROL: * Hold Lantus this AM -> will resume BID dosing later today once BSG improves * Continue current CF/CR but may need to loosen if BSGs continue to fall PLAN FOR DISCHARGE: * A1c has increased slightly from May * Patient follows with [facility] clinic as an outpatient -> would recommend continued close f/u with them
--- NOTE | 2017-01-30 17:05 | ECHOCARDIOGRAM REPORT ---
*NOTICE TO RECEIVING LIBERTARIAN AGENCY This information is strictly Confidential and protected under [place] law. [place] law prohibits you from making any further disclosure of this information unless further disclosure is expressly permitted by the written consent of the person to whom it pertains or is authorized by law. A general authorization for the release of medical or other information is not sufficient for this purpose. Hospital accepts no responsibility if the information is made available to any other person, INCLUDING THE PATIENT. Interpretation Summary * Name: JENNIFER SMITH Study Date: 01/30/2017 08:22 AM BP: 116/59 mmHg * Patient Location: [facility] HR: 71 * : 1935 (M/d/yyyy) Gender: Male Height: 72 in * Age: 81 yrs Ethnicity: [place] Weight: 175 lb * Ordering Physician: Jesus Reyes * Referring Physician: UNKNOWN * Performed By: Eden Milligan RDCS * * Reason For Study: Syncope * BSA: 2.0 m2 * The study was technically limited. * There is no comparison study available. * -- Conclusions -- * Ejection Fraction = 65-70%. * There is mild concentric left ventricular hypertrophy. * Aortic valve sclerosis mild, without significant aortic valvular stenosis. * There is mild mitral annular calcification. * Grade I diastolic dysfunction, (abnormal relaxation pattern). Procedure Details * A complete two-dimensional transthoracic echocardiogram was performed (2D, M-mode, Doppler and color flow Doppler). * A contrast injection of Definity was performed to improve assessment of LV function. * Contrast was injected into an intravenous site in the left arm. * One vial of Definity ultrasound contrast was diluted in normal saline to a total volume of 10 ml. A total of '2' ml of solution was administered during imaging. * Lot # [id number] of Definity utilized for procedure. * Expiration date 1 APR 15. * The attending nurse who injected the contrast agent was Jeremy Cardoza RN. Left Ventricle * The left ventricle is normal in size. * There is no thrombus. * There is mild concentric left ventricular hypertrophy. * Ejection Fraction = 65-70%. * Left ventricular systolic function is normal. * The left ventricular wall motion is normal. Right Ventricle * The right ventricle is normal size. * The right ventricular systolic function is normal as assessed by tricuspid annular plane systolic excursion (TAPSE) (normal >1.5 cm). Atria * The left atrial size is normal. * Right atrial size is normal. * There is no evidence of atrial septal defect, but resolution does not allow assessment for a patent foramen ovale. Mitral Valve * There is mild mitral annular calcification. * There is no mitral valve stenosis. * Significant mitral regurgitation is absent. Tricuspid Valve * The tricuspid valve is normal. * There is no tricuspid stenosis. * Significant tricuspid regurgitation is absent. Aortic Valve * The aortic valve is trileaflet. * Aortic valve sclerosis mild, without significant aortic valvular stenosis. * Aortic stenosis is absent. * There is no significant aortic regurgitation. Pulmonic Valve * The pulmonary valve is not well seen, but the Doppler examination is normal without significant regurgitation or stenosis. Great Vessels * The aortic root is normal size. Pericardium/Pleural * There is no pericardial effusion. Great Vessels * Normal inferior vena cava diameter and respiratory variation suggests normal central venous pressure. Left Ventricular Diastolic Function * Grade I diastolic dysfunction, (abnormal relaxation pattern). MMode 2D Measurements and Calculations IVSd 1.1 cm LVIDd 3.9 cm LVIDs 2.4 cm LVPWd 1.2 cm IVS/LVPW 0.92 FS 37.6 % EDV(Teich) 65.0 ml ESV(Teich) 20.6 ml EF(Teich) 68.3 % EDV(cubed) 58.2 ml ESV(cubed) 14.2 ml EF(cubed) 75.7 % LV mass(C)d 143.0 grams LV mass(C)dI 71.0 grams/m\S\2 SV(Teich) 44.4 ml SI(Teich) 22.0 ml/m\S\2 SV(cubed) 44.1 ml SI(cubed) 21.9 ml/m\S\2 Ao root diam 3.6 cm Ao root area 10.0 cm\S\2 LA dimension 2.6 cm asc Aorta Diam 3.4 cm LA/Ao 0.74 LVOT diam 2.0 cm LVOT area 3.2 cm\S\2 LVAd ap4 24.2 cm\S\2 LVLd ap4 7.5 cm EDV(MOD-sp4) 64.1 ml EDV(sp4-el) 66.6 ml LVAs ap4 12.0 cm\S\2 LVLs ap4 5.6 cm ESV(MOD-sp4) 22.5 ml ESV(sp4-el) 21.9 ml EF(MOD-sp4) 64.9 % EF(sp4-el) 67.1 % LVAd ap2 13.5 cm\S\2 LVLd ap2 5.4 cm EDV(MOD-sp2) 27.4 ml EDV(sp2-el) 28.4 ml LVAs ap2 6.9 cm\S\2 LVLs ap2 4.1 cm ESV(MOD-sp2) 9.5 ml ESV(sp2-el) 9.8 ml EF(MOD-sp2) 65.2 % EF(sp2-el) 65.6 % LVLd %diff -36.85 % EDV(MOD-bp) 49.4 ml LVLs %diff -34.51 % ESV(MOD-bp) 16.8 ml EF(MOD-bp) 65.9 % SV(MOD-sp4) 41.6 ml SI(MOD-sp4) 20.7 ml/m\S\2 SV(MOD-sp2) 17.9 ml SI(MOD-sp2) 8.9 ml/m\S\2 SV(MOD-bp) 32.6 ml SI(MOD-bp) 16.2 ml/m\S\2 SV(sp4-el) 44.7 ml SI(sp4-el) 22.2 ml/m\S\2 SV(sp2-el) 18.6 ml SI(sp2-el) 9.3 ml/m\S\2 Doppler Measurements and Calculations MV E max nenita 85.9 cm/sec MV A max nenita 108.2 cm/sec MV E/A 0.79 MV dec time 0.24 sec Ao V2 max 122.5 cm/sec Ao max PG 6.0 mmHg Ao max PG (full) 0.03 mmHg YUDELKA(V,A) 3.2 cm\S\2 YUDELKA(V,D) 3.2 cm\S\2 LV V1 max PG 6.0 mmHg LV V1 max 122.2 cm/sec PA V2 max 95.0 cm/sec PA max PG 3.6 mmHg PA acc slope 598.4 cm/sec\S\2 PA acc time 0.11 sec TR max nenita 219.8 cm/sec PA pr(Accel) 28.3 mmHg
--- NOTE | 2017-01-30 19:26 | Progress Note ---
Medicine Progress Note Date & Time of Visit: Jan 30, 2017 at ~ 16:00 . Subjective Patient interviewed with assistance of translation services. He continues to have left chest wall pain and left shoulder pain. Otherwise, doing fairly well. No fever. No cough or shortness of breath. No nausea or vomiting. No diarrhea. . Objective Last 8 Hrs Date Time Temp Pulse Resp B/P (MAP) Pulse Ox O2 Delivery O2 Flow Rate FiO2 01/30/17 16:00 96 Room Air 01/30/17 15:28 37.3 74 17 135/73 (93) 93 Room Air 01/30/17 12:00 96 Room Air 01/30/17 11:49 36.8 81 16 124/69 (87) 97 Physical Exam: General- lying in bed, appears to be somewhat uncomfortable Lungs- clear to auscultation Heart- RRR, I/ systolic murmur at base, no gallop appreciated Thorax- left chest wall tenderness Abdomen- normal bowel sounds, soft, nontender Extremities- 1+ pretibial edema or calf tenderness; no deformity or tenderness left shoulder Skin- warm and dry Neuro- alert, somewhat confused . Laboratory Results: Last 24 Hours Test 01/29/17 20:11 01/29/17 21:55 01/29/17 23:17 01/30/17 00:07 Bedside Glucose 279 mg/dl 106 mg/dl Urine Color YELLOW Urine Appearance CLEAR Urine pH 5.0 Urine Specific [place] 1.022 Urine Protein TRACE Urine Glucose (UA) 2+ Urine Ketones NEG Urine Occult Blood TRACE Urine Nitrite NEG Urine Bilirubin NEG Urine Urobilinogen NEG Urine Leukocyte Esterase NEG Urine WBC (Auto) 1-5 /hpf Urine RBC (Auto) 0-4 /hpf Urine Hyaline Casts (Auto) 1-5 /lpf Urine Epithelial Cells (Auto) 10-20 /lpf Urine Bacteria (Auto) NEG Total Creatine Kinase 210 U/L Creatine Kinase MB 1.8 ng/ml Creatine Kinase MB Ratio 0.9 Troponin I 0.019 ng/ml Test 01/30/17 03:42 01/30/17 05:50 01/30/17 07:08 01/30/17 11:14 Bedside Glucose 87 mg/dl 76 mg/dl 83 mg/dl White Blood Count 9.27 K/uL Red Blood Count 3.31 M/uL Hemoglobin 10.0 g/dL Hematocrit 30.7 % Mean Corpuscular Volume 92.7 fL Mean Corpuscular Hemoglobin 30.2 pg Mean Corpuscular Hemoglobin Concent 32.6 g/dl Platelet Count 183 K/uL Mean Platelet Volume 10.7 fL Neutrophils (%) (Auto) 75.3 % Lymphocytes (%) (Auto) 11.7 % Monocytes (%) (Auto) 12.1 % Eosinophils (%) (Auto) 0.5 % Basophils (%) (Auto) 0.1 % Neutrophils # (Auto) 6.98 K/uL Lymphocytes # (Auto) 1.08 K/uL Monocytes # (Auto) 1.12 K/uL Eosinophils # (Auto) 0.05 K/uL Basophils # (Auto) 0.01 K/uL RDW Standard Deviation 49.8 fL RDW Coefficient of Variation 14.6 % Immature Granulocyte % (Auto) 0.3 % Immature Granulocyte # (Auto) 0.03 K/uL Sodium Level 141 mmol/L Potassium Level 3.9 mmol/L Chloride Level 107 mmol/L Carbon Dioxide Level 27 mmol/L Anion Gap 7.0 mmol/L Blood Urea Nitrogen 39 mg/dl Creatinine 1.90 mg/dl Est Creatinine Clear Calc Drug Dose 33.5 ml/min Estimated GFR () 37.5 Estimated GFR (Non- 32.3 BUN/Creatinine Ratio 20.7 Random Glucose 81 mg/dl Estimated Average Glucose 203 mg/dl Hemoglobin A1c 8.7 % Calcium Level 8.1 mg/dl Test 01/30/17 16:09 Bedside Glucose 128 mg/dl Date/Time Source Procedure Growth Status 01/29/17 21:45 Nasal MRSA DNA Surveillance Screen - Final Specimen Negative for MRSA by DNA Probe Complete 01/29/17 21:45 Urine , Clean Catch Urine Culture - Preliminary NO GROWTH - LESS THAN 1,000 COLONIES/... Resulted Assessment & Plan POSSIBLE PNEUMONIA White count time of admission was 15,890. Chest x-ray demonstrated bibasilar densities, possible pneumonia. Blood cultures obtained and negative thus far. Receiving doxycycline and piperacillin/tazobactam. ALTERED MENTAL STATUS CT head demonstrated small vessel ischemic changes, no acute events. Underlying dementia. Possible encephalopathy secondary to pneumonia; possible metabolic encephalopathy secondary to hypoglycemia and/or acute kidney injury. FRACTURE LEFT 4TH RIB No pneumothorax. Analgesics. Incentive spirometry. LEFT SHOULDER PAIN No fracture or dislocation per plain films. May need further evaluation/consultation if no improvement. CORONARY ARTERY DISEASE Stress echo in 2009 demonstrated stress-induced ischemia. Cardiac markers negative. Continue aspirin and metoprolol. HYPERTENSION Continue metoprolol. CHRONIC KIDNEY DISEASE STAGE III / ACUTE KIDNEY INJURY CKD III with baseline creatinine of 1.5 in May 2016. Serum creatinine at time of admission 2.08. Acute kidney injury superimposed on CKD. Hold furosemide. Follow fluid status, labs. DIABETES MELLITUS TYPE 2 Not well-controlled. Random blood sugar 300 at time of admission. Hemoglobin A1c 8.7. Pharmacy consulted for glycemic management. Receiving Lantus/NovoLog per protocol. Fasting blood sugar this morning = 76. DEMENTIA Monitor for delirium. CHRONIC DVT (present on admission) Venous duplex demonstrated trace chronic thrombus within the right common femoral and superficial femoral veins. VTE PROPHYLAXIS Anticoagulants contraindicated due to abrasions of lower extremities from fall with bleeding and possible closed head injury. SCD's contraindicated to lower extremity edema. DISPOSITION To be determined. Family Medicine follow-up with Dr. Mosley. . Current Inpatient Medications: Current Inpatient Medications Medications (Trade) Dose Ordered Sig/Nato Route Start Time Stop Time Status Last Admin Dose Admin Insulin Aspart (novoLOG ASPART) SLIDING SCALE If C... ACHS SC 01/29/17 12:00 02/28/17 11:59 01/29/17 20:37 6 UNITS Glucose (Glucose 40% Gel) 15-30 GRAMS 15 GRAMS... UD PRN PO 01/29/17 10:45 02/28/17 10:44 Glucose (Glucose Chew Tab) 4-8 Tablets 4 Tabl... UD PRN PO 01/29/17 10:45 02/28/17 10:44 Dextrose (Dextrose 50% 50ML Syringe) 25-50ML OF 50% DW IV FOR... UD PRN IV 01/29/17 10:45 02/28/17 10:44 Glucagon (Glucagon Inj) 1 mg UD PRN SQ 01/29/17 10:45 02/28/17 10:44 Acetaminophen (Tylenol Tab) 650 mg Q4H PRN PO 01/29/17 11:00 02/28/17 10:59 Ondansetron HCl (Zofran Inj) 4 mg Q6H PRN IV 01/29/17 11:00 02/28/17 10:59 Aspirin (Ecotrin Tab) 81 mg DAILY PO 01/30/17 09:00 03/01/17 08:59 01/30/17 08:55 81 MG Finasteride (Proscar Tab) 5 mg DAILY PO 01/30/17 09:00 03/01/17 08:59 01/30/17 08:55 5 MG Gabapentin (Neurontin Tab) 600 mg BID PO 01/29/17 21:00 02/28/17 20:59 01/30/17 08:55 600 MG Metoprolol Tartrate (Lopressor Tab) 12.5 mg BID PO 01/29/17 21:00 02/28/17 20:59 01/30/17 08:55 12.5 MG Ranitidine HCl (zANTac TAB) 150 mg BID PO 01/29/17 21:00 02/28/17 20:59 01/30/17 08:55 150 MG Sertraline HCl (Zoloft Tab) 25 mg DAILY PO 01/30/17 09:00 03/01/17 08:59 01/30/17 08:55 25 MG Terazosin HCl (Hytrin Cap) 5 mg HS PO 01/29/17 21:00 02/28/17 20:59 01/29/17 20:29 5 MG Miscellaneous Information (Order Awaiting Action) 1 ea QS N/A 01/29/17 13:00 02/28/17 12:59 01/30/17 16:20 1 EA Clobetasol Propionate (Clobetasol Propionate Oint) 1 appln BID EXT 01/29/17 21:00 02/28/17 20:59 01/30/17 08:55 1 APPLN Pantoprazole Sodium (Protonix Tab) 40 mg QAM PO 01/30/17 09:00 03/01/17 08:59 01/30/17 08:55 40 MG Tramadol HCl (Ultram Tab) 50 mg Q6H PRN PO 01/29/17 12:00 02/28/17 11:59 Acetaminophen (Tylenol Tab) 500 mg Q4 PRN PO 01/29/17 12:00 02/28/17 11:59 01/30/17 05:01 500 MG Piperacillin Sod/ Tazobactam Sod (Consult) 1 ea UD PRN N/A 01/29/17 12:15 02/28/17 12:14 Miscellaneous Information 1 ea UD PRN N/A 01/29/17 12:15 02/28/17 12:14 Piperacillin Sod/ Tazobactam Sod 3.375 gm/Dextrose 115 ml @ 28.75 mls/ hr Q8H IV 01/29/17 18:00 02/05/17 17:59 01/30/17 18:02 28.75 MLS/HR Doxycycline Hyclate 100 mg/ Dextrose 110 ml @ 55 mls/hr Q12H IV 01/29/17 16:00 02/05/17 15:59 01/30/17 16:05 55 MLS/HR Insulin Glargine (Lantus Solostar Pen) 21 units Q12 SC 01/30/17 09:00 03/01/17 08:59 Future hold Miscellaneous Information (Consult Glycemic Management Pharmacy) 1 ea UD PRN N/A 01/29/17 15:30 02/28/17 15:29
[2017-01-30 20:58] LABS: URINE APPEARANCE CLEAR (CLEAR); URINE BILIRUBIN NEG (NEG); URINE COLOR YELLOW; URINE NITRITE NEG (NEG); URINE PH 5.5 (4.5-7.5); URINE SPECIFIC GRAVITY 1.016 (1.000-1.030); UROBILINOGEN NEG (NEG)
[2017-01-30] MEDS: INSULIN GLARGINE SOLOSTAR 100 UNITS/ML 3 ML PEN SC SCH (21:04)
[2017-01-30] MEDS: ACETAMINOPHEN 325 MG TAB PO PRN (21:15)
[2017-01-30 21:18] LABS: MANUAL MICROSCOPIC REQUIRED? NO; REVIEW REQ? NO
[2017-01-30] MEDS ORDERED: ENOXAPARIN 40 MG/0.4 ML SYR SQ ONE (23:02)
[2017-01-31] MEDS: PIPERACILL/TAZOBAC IV 3.375 GM in DEXTROSE 5% 100ML IV SCH ×3 (01:33→17:53)
[2017-01-31 03:30] VITALS: BP 157/81; PULSE 79; TEMP 36.5; O2SAT 98
[2017-01-31] MEDS: DOXYCYCLINE HYCLATE 100 MG in DEXTROSE 5% 100ML IV SCH (04:13)
[2017-01-31 07:57] VITALS: BP 143/85; PULSE 74; TEMP 36.8; O2SAT 97
[2017-01-31] MEDS: ASPIRIN 81 MG ECTAB PO SCH (08:39)
[2017-01-31] MEDS: TRAMADOL HCL 50 MG TAB PO PRN ×2 (08:40→22:26)
[2017-01-31] MEDS: RANITIDINE HCL 150 MG TAB PO SCH ×2 (08:40→20:38)
[2017-01-31] MEDS: PANTOprazole SOD 40 MG TAB PO SCH (08:40)
[2017-01-31] MEDS: METOPROLOL TARTRATE 25 MG TAB PO SCH ×2 (08:40→20:37)
[2017-01-31] MEDS: GABAPENTIN 600 MG TAB PO SCH ×2 (08:40→20:37)
[2017-01-31] MEDS: SERTRALINE HCL 50 MG TAB PO SCH (08:40)
[2017-01-31] MEDS: CLOBETASOL PROPIONATE 0.05% OINT 15 GM TUBE EXT SCH ×2 (08:45→20:37)
[2017-01-31] MEDS: INSULIN ASPART 100 UNITS/ML 3 ML PEN SC SCH ×4 (08:47→20:54)
[2017-01-31] MEDS: INSULIN GLARGINE SOLOSTAR 100 UNITS/ML 3 ML PEN SC SCH ×2 (08:48→17:52)
[2017-01-31 09:22] LABS: HEMATOCRIT 31.2 % (42-52); MEAN CELL VOLUME 93.7 fL (80-100); MEAN CORPUSCULAR HEMOGLOBIN 30.9 pg (25-34); MEAN PLATELET VOLUME 11.5 fL (7.4-10.4); PLATELET COUNT 178 K/uL (130-400); RED BLOOD COUNT 3.33 M/uL (4.7-6.1); WHITE BLOOD COUNT 7.84 K/uL (4.8-10.8)
[2017-01-31 09:58] LABS: CALCIUM 8.4 mg/dl (8.5-10.1); CREATININE 1.71 mg/dl (0.60-1.40); POTASSIUM 4.3 mmol/L (3.5-5.1)
[2017-01-31] MEDS: FINASTERIDE 5 MG TAB PO SCH (09:58)
--- NOTE | 2017-01-31 10:27 | Pharmacy Progress Note ---
Pharmacy Glycemic Short Note 2 Date of Service Jan 31, 2017. OUTPATIENT ANTIDIABETIC REGIMEN: * Lantus 40 units daily * Humalog 10 units with breakfast/ 8 units with lunch and dinner; CF 1:40 if > 180 at bedtime * A1c = 8.4 % on 06/05/16 and 8.7% on 01/29/17 ASSESSMENT: 01/30/17 * Mr. Arenas received 71 units of insulin yesterday with BSGs falling from 320 - > 76 since admission * I suspect that he missed his dose of Lantus yesterday since BSGs have improved after receiving it * He continues on doxy and Zosyn for pneumonia; SCr slowly improving * I placed his Lantus on hold this AM since BSGs are on the lower side and the dose he received yesterday would still be on board * If BSGs improve by lunch, will plan to resume the Lantus at the current BID dose 01/31/17 * Mr. Arenas received 27 units of insulin yesterday with BSGs ranging from 76- 273 mg/dL in the past 24 hours * From his fasting this AM, he could have received a total of 40 units of basal yesterday. Since he will be receiving that today, will not make any changes to basal at this time. Will instead tighten the CF for today to provide additional coverage until additional Lantus in effect. * Only 10 gm of CHO total was documented yesterday but from the BSG of 273 at bedtime, I suspect he had some po intake * No other significant changes to stressors are noted PLAN FOR INPATIENT GLYCEMIC CONTROL: * Continue Lantus 21 units BID * Continue Novolog ACHS * Goal 120-160 * TIGHTEN CF to 15 for today - reassess tomorrow * CR 6
[2017-01-31 11:11] VITALS: BP 147/78; PULSE 74; TEMP 36.8; O2SAT 97
[2017-01-31 12:31] LABS: PARTIAL THROMBOPLASTIN RATIO 1.1; PROTHROMBIN TIME (PATIENT) 10.6 SECONDS (9.0-12.0)
[2017-01-31] MEDS: DOXYCYCLINE HYCLATE 100 MG CAP PO SCH (17:53)
[2017-01-31 19:38] VITALS: BP 125/63; PULSE 70; TEMP 36.7; O2SAT 94
--- NOTE | 2017-01-31 20:21 | Progress Note ---
Medicine Progress Note Date & Time of Visit: Jan 31, 2017 at 19:40 . Subjective Chest wall pain improved. No dyspnea. No nausea or vomiting. No diarrhea. Blood sugars elevated. . Objective Last 8 Hrs Date Time Temp Pulse Resp B/P (MAP) Pulse Ox O2 Delivery O2 Flow Rate FiO2 01/31/17 20:00 Room Air 01/31/17 19:38 36.7 70 20 125/63 (83) 94 Room Air 01/31/17 16:00 Room Air Physical Exam: General- lying in bed, no distress Lungs- clear to auscultation Heart- RRR, I/ systolic murmur at base, no gallop appreciated Thorax- left chest wall tenderness Abdomen- normal bowel sounds, soft, nontender Extremities- 1+ pretibial edema or calf tenderness; no deformity or tenderness left shoulder Skin- warm and dry; abrasions bilat knees Neuro- alert, somewhat confused . Laboratory Results: Last 24 Hours Test 01/30/17 20:31 01/31/17 06:22 01/31/17 06:44 01/31/17 11:10 Bedside Glucose 273 mg/dl 214 mg/dl 234 mg/dl White Blood Count 7.84 K/uL Red Blood Count 3.33 M/uL Hemoglobin 10.3 g/dL Hematocrit 31.2 % Mean Corpuscular Volume 93.7 fL Mean Corpuscular Hemoglobin 30.9 pg Mean Corpuscular Hemoglobin Concent 33.0 g/dl RDW Standard Deviation 50.5 fL RDW Coefficient of Variation 14.9 % Platelet Count 178 K/uL Mean Platelet Volume 11.5 fL Sodium Level 139 mmol/L Potassium Level 4.3 mmol/L Chloride Level 106 mmol/L Carbon Dioxide Level 28 mmol/L Anion Gap 5.0 mmol/L Blood Urea Nitrogen 31 mg/dl Creatinine 1.71 mg/dl Est Creatinine Clear Calc Drug Dose 37.2 ml/min Estimated GFR () 42.6 Estimated GFR (Non- 36.7 BUN/Creatinine Ratio 18.0 Random Glucose 203 mg/dl Calcium Level 8.4 mg/dl Test 01/31/17 11:50 01/31/17 15:56 01/31/17 20:05 Prothrombin Time 10.6 SECONDS Prothromb Time International Ratio 1.0 Activated Partial Thromboplast Time 28.3 SECONDS Partial Thromboplastin Ratio 1.1 Bedside Glucose 182 mg/dl 267 mg/dl Assessment & Plan POSSIBLE PNEUMONIA White count time of admission was 15,890. Chest x-ray demonstrated bibasilar densities, possible pneumonia. Blood cultures obtained and negative thus far. Receiving doxycycline and piperacillin/tazobactam. ALTERED MENTAL STATUS CT head demonstrated small vessel ischemic changes, no acute events. Underlying dementia. Possible encephalopathy secondary to pneumonia; possible metabolic encephalopathy secondary to hypoglycemia and/or acute kidney injury. FRACTURE LEFT 4TH RIB No pneumothorax. Analgesics. Incentive spirometry. LEFT SHOULDER PAIN No fracture or dislocation per plain films. May need further evaluation/consultation if no improvement. CORONARY ARTERY DISEASE Stress echo in 2009 demonstrated stress-induced ischemia. Cardiac markers negative. Continue aspirin and metoprolol. HYPERTENSION Continue metoprolol. CHRONIC KIDNEY DISEASE STAGE III / ACUTE KIDNEY INJURY CKD III with baseline creatinine of 1.5 in May 2016. Serum creatinine at time of admission 2.08. Acute kidney injury superimposed on CKD. Holding furosemide. Creatinine today = 1.71. DIABETES MELLITUS TYPE 2 Not well-controlled. Random blood sugar 300 at time of admission. Hemoglobin A1c 8.7. Pharmacy consulted for glycemic management. Receiving Lantus/NovoLog per protocol. Fasting blood sugar this morning = 214. DEMENTIA Monitor for delirium. CHRONIC DVT (present on admission) Venous duplex demonstrated trace chronic thrombus within the right common femoral and superficial femoral veins. VTE PROPHYLAXIS Anticoagulants contraindicated at time of admission due to abrasions of lower extremities from fall with bleeding and possible closed head injury. Started on SQ heparin. DISPOSITION To be determined. Family Medicine follow-up with Dr. Mosley. . Current Inpatient Medications: Current Inpatient Medications Medications (Trade) Dose Ordered Sig/Nato Route Start Time Stop Time Status Last Admin Dose Admin Insulin Aspart (novoLOG ASPART) SLIDING SCALE If C... ACHS SC 01/29/17 12:00 02/28/17 11:59 01/31/17 17:51 11 UNITS Glucose (Glucose 40% Gel) 15-30 GRAMS 15 GRAMS... UD PRN PO 01/29/17 10:45 02/28/17 10:44 Glucose (Glucose Chew Tab) 4-8 Tablets 4 Tabl... UD PRN PO 01/29/17 10:45 02/28/17 10:44 Dextrose (Dextrose 50% 50ML Syringe) 25-50ML OF 50% DW IV FOR... UD PRN IV 12/5/17 10:45 02/28/17 10:44 Glucagon (Glucagon Inj) 1 mg UD PRN SQ 01/29/17 10:45 02/28/17 10:44 Acetaminophen (Tylenol Tab) 650 mg Q4H PRN PO 01/29/17 11:00 02/28/17 10:59 01/30/17 21:15 650 MG Ondansetron HCl (Zofran Inj) 4 mg Q6H PRN IV 01/29/17 11:00 02/28/17 10:59 Aspirin (Ecotrin Tab) 81 mg DAILY PO 01/30/17 09:00 03/01/17 08:59 01/31/17 08:39 81 MG Finasteride (Proscar Tab) 5 mg DAILY PO 01/30/17 09:00 03/01/17 08:59 01/31/17 09:58 5 MG Gabapentin (Neurontin Tab) 600 mg BID PO 01/29/17 21:00 02/28/17 20:59 01/31/17 08:40 600 MG Metoprolol Tartrate (Lopressor Tab) 12.5 mg BID PO 01/29/17 21:00 02/28/17 20:59 01/31/17 08:40 12.5 MG Ranitidine HCl (zANTac TAB) 150 mg BID PO 01/29/17 21:00 02/28/17 20:59 01/31/17 08:40 150 MG Sertraline HCl (Zoloft Tab) 25 mg DAILY PO 01/30/17 09:00 03/01/17 08:59 01/31/17 08:40 25 MG Terazosin HCl (Hytrin Cap) 5 mg HS PO 01/29/17 21:00 02/28/17 20:59 01/30/17 21:08 5 MG Miscellaneous Information (Order Awaiting Action) 1 ea QS N/A 01/29/17 13:00 02/28/17 12:59 01/31/17 18:14 1 EA Clobetasol Propionate (Clobetasol Propionate Oint) 1 appln BID EXT 01/29/17 21:00 02/28/17 20:59 01/31/17 08:45 1 APPLN Pantoprazole Sodium (Protonix Tab) 40 mg QAM PO 01/30/17 09:00 03/01/17 08:59 01/31/17 08:40 40 MG Tramadol HCl (Ultram Tab) 50 mg Q6H PRN PO 01/29/17 12:00 02/28/17 11:59 01/31/17 08:40 50 MG Acetaminophen (Tylenol Tab) 500 mg Q4 PRN PO 01/29/17 12:00 02/28/17 11:59 01/30/17 05:01 500 MG Piperacillin Sod/ Tazobactam Sod (Consult) 1 ea UD PRN N/A 01/29/17 12:15 02/28/17 12:14 Miscellaneous Information 1 ea UD PRN N/A 01/29/17 12:15 02/28/17 12:14 Piperacillin Sod/ Tazobactam Sod 3.375 gm/Dextrose 115 ml @ 28.75 mls/ hr Q8H IV 01/29/17 18:00 02/05/17 17:59 01/31/17 17:53 28.75 MLS/HR Miscellaneous Information (Consult Glycemic Management Pharmacy) 1 ea UD PRN N/A 01/29/17 15:30 02/28/17 15:29 Heparin Sodium (Porcine) (Heparin Sq 5000 Unit/0.5ml) 5,000 unit Q12 SQ 01/31/17 21:00 03/02/17 20:59 Doxycycline Hyclate (Vibramycin Cap) 100 mg BID PO 01/31/17 18:00 02/05/17 17:59 01/31/17 17:53 100 MG Insulin Glargine (Lantus Solostar Pen) SEE PROTOCOL TEXT BID SC 01/31/17 17:00 03/02/17 16:59 01/31/17 17:52 25 UNITS
[2017-01-31] MEDS ORDERED: ENOXAPARIN 40 MG/0.4 ML SYR SQ SCH (21:00)
[2017-01-31] MEDS: HEPARIN SOD 5000 UNIT/0.5 ML CARP SQ SCH (21:00)
[2017-01-31] MEDS ORDERED: INSULIN GLARGINE SOLOSTAR 100 UNITS/ML 3 ML PEN SC SCH (21:00)
[2017-01-31] MEDS: ACETAMINOPHEN 325 MG TAB PO PRN (22:26)
[2017-01-31 23:30] VITALS: BP 154/75; PULSE 73; TEMP 36.7; O2SAT 96
[2017-02-01] VITALS (12 sets, daily range): BP systolic 123–171; BP diastolic 67–95; PULSE 69–90; TEMP 36.5–37.5; O2SAT 94–98
[2017-02-01] MEDS: PIPERACILL/TAZOBAC IV 3.375 GM in DEXTROSE 5% 100ML IV SCH (01:18)
[2017-02-01 06:42] LABS: CALCIUM 8.4 mg/dl (8.5-10.1); CREATININE 1.78 mg/dl (0.60-1.40); POTASSIUM 4.6 mmol/L (3.5-5.1)
[2017-02-01] MEDS: RANITIDINE HCL 150 MG TAB PO SCH ×2 (07:44→19:36)
[2017-02-01] MEDS: GABAPENTIN 600 MG TAB PO SCH ×2 (07:44→19:36)
[2017-02-01] MEDS: TRAMADOL HCL 50 MG TAB PO PRN (07:44)
[2017-02-01] MEDS: ASPIRIN 81 MG ECTAB PO SCH (07:44)
[2017-02-01] MEDS: PANTOprazole SOD 40 MG TAB PO SCH (07:44)
[2017-02-01] MEDS: DOXYCYCLINE HYCLATE 100 MG CAP PO SCH ×2 (07:44→19:36)
[2017-02-01] MEDS: BRIMONIDINE TARTRATE TIMOLOL M OPR SCH ×2 (07:45→19:35)
[2017-02-01] MEDS: FINASTERIDE 5 MG TAB PO SCH (07:45)
[2017-02-01] MEDS: METOPROLOL TARTRATE 25 MG TAB PO SCH ×2 (07:45→19:36)
[2017-02-01] MEDS: CLOBETASOL PROPIONATE 0.05% OINT 15 GM TUBE EXT SCH ×2 (07:45→19:35)
[2017-02-01] MEDS: SERTRALINE HCL 50 MG TAB PO SCH (07:45)
[2017-02-01] MEDS: INSULIN ASPART 100 UNITS/ML 3 ML PEN SC SCH ×4 (08:24→21:29)
[2017-02-01] MEDS: INSULIN GLARGINE SOLOSTAR 100 UNITS/ML 3 ML PEN SC SCH ×2 (08:25→21:30)
[2017-02-01] MEDS: HEPARIN SOD 5000 UNIT/0.5 ML CARP SQ SCH ×2 (08:25→21:30)
[2017-02-01] MEDS: ACETAMINOPHEN 500 MG TAB PO PRN (19:34)
--- NOTE | 2017-02-01 21:54 | Progress Note ---
Medicine Progress Note Date & Time of Visit: Feb 01, 2017 at 18:30 . Subjective Confused at times. No fever. No significant cough. No apparent anginal symptoms. Left rib and shoulder pain improved. No nausea or vomiting. Needs assistance due to poor eyesight. . Objective Last 8 Hrs Date Time Temp Pulse Resp B/P (MAP) Pulse Ox O2 Delivery O2 Flow Rate FiO2 02/01/17 20:50 37.2 76 18 123/77 (92) 98 Room Air 02/01/17 20:00 94 Room Air 02/01/17 16:00 94 Room Air 02/01/17 15:37 36.5 71 16 151/75 (100) 94 Room Air Physical Exam: General- lying in bed, no distress Lungs- clear to auscultation Heart- RRR, I/ systolic murmur at base, no gallop Thorax- less left chest wall tenderness Abdomen- normal bowel sounds, soft, nontender Extremities- 1+ pretibial edema or calf tenderness; no deformity or tenderness left shoulder Skin- warm and dry; abrasions bilat knees Neuro- alert, confused . Laboratory Results: Last 24 Hours Test 02/01/17 05:56 02/01/17 06:55 02/01/17 11:20 02/01/17 16:22 Sodium Level 139 mmol/L Potassium Level 4.6 mmol/L Chloride Level 107 mmol/L Carbon Dioxide Level 27 mmol/L Anion Gap 5.0 mmol/L Blood Urea Nitrogen 29 mg/dl Creatinine 1.78 mg/dl Est Creatinine Clear Calc Drug Dose 35.7 ml/min Estimated GFR () 40.6 Estimated GFR (Non- 35.0 BUN/Creatinine Ratio 16.0 Random Glucose 218 mg/dl Calcium Level 8.4 mg/dl Bedside Glucose 216 mg/dl 157 mg/dl 172 mg/dl Test 02/01/17 20:25 Bedside Glucose 247 mg/dl Assessment & Plan POSSIBLE PNEUMONIA White count time of admission was 15,890. Chest x-ray demonstrated bibasilar densities, possible pneumonia. Blood cultures obtained and negative thus far. Received doxycycline and piperacillin/tazobactam. Piperacillin/tazobactam discontinued. Continue doxycycline to complete course of therapy. ALTERED MENTAL STATUS CT head demonstrated small vessel ischemic changes, no acute events. Underlying dementia. Possible encephalopathy secondary to pneumonia; possible metabolic encephalopathy secondary to hypoglycemia and/or acute kidney injury. FRACTURE LEFT 4TH RIB No pneumothorax. Analgesics. Incentive spirometry. LEFT SHOULDER PAIN No fracture or dislocation per plain films. Improving. CORONARY ARTERY DISEASE Stress echo in 2009 demonstrated stress-induced ischemia. Cardiac markers negative. Continue aspirin and metoprolol. HYPERTENSION Continue metoprolol. CHRONIC KIDNEY DISEASE STAGE III / ACUTE KIDNEY INJURY CKD III with baseline creatinine of 1.5 in May 2016. Serum creatinine at time of admission 2.08. Acute kidney injury superimposed on CKD. Holding furosemide. Creatinine today = 1.78. DIABETES MELLITUS TYPE 2 Not well-controlled. Random blood sugar 300 at time of admission. Hemoglobin A1c 8.7. Pharmacy consulted for glycemic management. Receiving Lantus/NovoLog per protocol. Fasting blood sugar this morning = 216. DEMENTIA Monitor for delirium. CHRONIC DVT (present on admission) Venous duplex demonstrated trace chronic thrombus within the right common femoral and superficial femoral veins. VTE PROPHYLAXIS Anticoagulants contraindicated at time of admission due to abrasions of lower extremities from fall with bleeding and possible closed head injury. Started on SQ heparin. DISPOSITION Anticipated return to [facility] with assistance from family and outside resources. Family Medicine follow-up with Dr. Mosley. . Current Inpatient Medications: Current Inpatient Medications Medications (Trade) Dose Ordered Sig/Nato Route Start Time Stop Time Status Last Admin Dose Admin Insulin Aspart (novoLOG ASPART) SLIDING SCALE If C... ACHS SC 01/29/17 12:00 02/28/17 11:59 02/01/17 21:29 6 UNITS Glucose (Glucose 40% Gel) 15-30 GRAMS 15 GRAMS... UD PRN PO 01/29/17 10:45 02/28/17 10:44 Glucose (Glucose Chew Tab) 4-8 Tablets 4 Tabl... UD PRN PO 01/29/17 10:45 02/28/17 10:44 Dextrose (Dextrose 50% 50ML Syringe) 25-50ML OF 50% DW IV FOR... UD PRN IV 01/29/17 10:45 02/28/17 10:44 Glucagon (Glucagon Inj) 1 mg UD PRN SQ 01/29/17 10:45 02/28/17 10:44 Acetaminophen (Tylenol Tab) 650 mg Q4H PRN PO 01/29/17 11:00 02/28/17 10:59 01/31/17 22:26 650 MG Ondansetron HCl (Zofran Inj) 4 mg Q6H PRN IV 01/29/17 11:00 02/28/17 10:59 Aspirin (Ecotrin Tab) 81 mg DAILY PO 01/30/17 09:00 03/01/17 08:59 02/01/17 07:44 81 MG Finasteride (Proscar Tab) 5 mg DAILY PO 01/30/17 09:00 03/01/17 08:59 02/01/17 07:45 5 MG Gabapentin (Neurontin Tab) 600 mg BID PO 01/29/17 21:00 02/28/17 20:59 02/01/17 19:36 600 MG Metoprolol Tartrate (Lopressor Tab) 12.5 mg BID PO 01/29/17 21:00 02/28/17 20:59 02/01/17 19:36 12.5 MG Ranitidine HCl (zANTac TAB) 150 mg BID PO 01/29/17 21:00 02/28/17 20:59 02/01/17 19:36 150 MG Sertraline HCl (Zoloft Tab) 25 mg DAILY PO 01/30/17 09:00 03/01/17 08:59 02/01/17 07:45 25 MG Terazosin HCl (Hytrin Cap) 5 mg HS PO 01/29/17 21:00 02/28/17 20:59 02/01/17 19:35 5 MG Miscellaneous Information (Order Awaiting Action) 1 ea QS N/A 01/29/17 13:00 02/28/17 12:59 01/31/17 18:14 1 EA Clobetasol Propionate (Clobetasol Propionate Oint) 1 appln BID EXT 01/29/17 21:00 02/28/17 20:59 02/01/17 19:35 1 APPLN Pantoprazole Sodium (Protonix Tab) 40 mg QAM PO 01/30/17 09:00 03/01/17 08:59 02/01/17 07:44 40 MG Tramadol HCl (Ultram Tab) 50 mg Q6H PRN PO 01/29/17 12:00 02/28/17 11:59 02/01/17 07:44 50 MG Acetaminophen (Tylenol Tab) 500 mg Q4 PRN PO 01/29/17 12:00 02/28/17 11:59 02/01/17 19:34 500 MG Miscellaneous Information 1 ea UD PRN N/A 01/29/17 12:15 02/28/17 12:14 Miscellaneous Information (Consult Glycemic Management Pharmacy) 1 ea UD PRN N/A 01/29/17 15:30 02/28/17 15:29 Heparin Sodium (Porcine) (Heparin Sq 5000 Unit/0.5ml) 5,000 unit Q12 SQ 01/31/17 21:00 03/02/17 20:59 02/01/17 21:30 5,000 UNIT Doxycycline Hyclate (Vibramycin Cap) 100 mg BID PO 01/31/17 18:00 02/05/17 17:59 02/01/17 19:36 100 MG Insulin Glargine (Lantus Solostar Pen) SEE PROTOCOL TEXT BID SC 01/31/17 17:00 03/02/17 16:59 02/01/17 21:30 25 UNITS Brimonidine/ Timolol (Combigan Oph Soln) 1 drops BID OPR 02/01/17 09:00 03/03/17 08:59 02/01/17 19:35 1 DROPS
[2017-02-02] VITALS (7 sets, daily range): BP systolic 118–160; BP diastolic 62–80; PULSE 70–77; TEMP 36.8–37; O2SAT 94–95
[2017-02-02] MEDS: TRAMADOL HCL 50 MG TAB PO PRN ×2 (04:43→22:13)
[2017-02-02 06:49] LABS: BUN/CREATININE RATIO 19.2 (10-20); CALCIUM 8.7 mg/dl (8.5-10.1); CREATININE 1.5 mg/dl (0.60-1.40); POTASSIUM 4.3 mmol/L (3.5-5.1)
[2017-02-02] MEDS: GABAPENTIN 600 MG TAB PO SCH ×2 (08:18→22:13)
[2017-02-02] MEDS: ASPIRIN 81 MG ECTAB PO SCH (08:18)
[2017-02-02] MEDS: METOPROLOL TARTRATE 25 MG TAB PO SCH ×2 (08:19→22:14)
[2017-02-02] MEDS: RANITIDINE HCL 150 MG TAB PO SCH ×2 (08:19→22:03)
[2017-02-02] MEDS: PANTOprazole SOD 40 MG TAB PO SCH (08:19)
[2017-02-02] MEDS: FINASTERIDE 5 MG TAB PO SCH (08:20)
[2017-02-02] MEDS: SERTRALINE HCL 50 MG TAB PO SCH (08:20)
[2017-02-02] MEDS: DOXYCYCLINE HYCLATE 100 MG CAP PO SCH ×2 (08:20→22:13)
[2017-02-02] MEDS: BRIMONIDINE TARTRATE TIMOLOL M OPR SCH ×2 (08:21→22:13)
[2017-02-02] MEDS: CLOBETASOL PROPIONATE 0.05% OINT 15 GM TUBE EXT SCH ×2 (08:21→22:14)
[2017-02-02] MEDS: INSULIN ASPART 100 UNITS/ML 3 ML PEN SC SCH ×4 (08:26→22:19)
[2017-02-02] MEDS: INSULIN GLARGINE SOLOSTAR 100 UNITS/ML 3 ML PEN SC SCH ×2 (08:27→22:21)
[2017-02-02] MEDS: HEPARIN SOD 5000 UNIT/0.5 ML CARP SQ SCH ×2 (08:27→22:21)
[2017-02-02] MEDS: ACETAMINOPHEN 500 MG TAB PO PRN (11:10)
--- NOTE | 2017-02-02 16:47 | Progress Note ---
Medicine Progress Note Date & Time of Visit: Feb 02, 2017 at ~ 11:00 . Subjective No fever. Rib pain much better. No cough or SOB. No nausea or vomiting. No diarrhea. . Objective Last 8 Hrs Date Time Temp Pulse Resp B/P (MAP) Pulse Ox O2 Delivery O2 Flow Rate FiO2 02/02/17 15:39 36.8 70 18 118/62 (80) 95 Room Air Physical Exam: General- lying in bed, no distress Lungs- clear to auscultation Heart- RRR, I/ systolic murmur at base, no gallop Thorax- less left chest wall tenderness Abdomen- normal bowel sounds, soft, nontender Extremities- trace pretibial edema or calf tenderness; no deformity or tenderness left shoulder Skin- warm and dry; abrasions bilateral knees Neuro- alert, less confused . Laboratory Results: Last 24 Hours Test 02/01/17 20:25 02/02/17 05:28 02/02/17 07:59 02/02/17 11:24 Bedside Glucose 247 mg/dl 155 mg/dl 108 mg/dl Sodium Level 141 mmol/L Potassium Level 4.3 mmol/L Chloride Level 107 mmol/L Carbon Dioxide Level 27 mmol/L Anion Gap 7.0 mmol/L Blood Urea Nitrogen 29 mg/dl Creatinine 1.50 mg/dl Est Creatinine Clear Calc Drug Dose 41.9 ml/min Estimated GFR () 49.9 Estimated GFR (Non- 43.0 BUN/Creatinine Ratio 19.2 Random Glucose 175 mg/dl Calcium Level 8.7 mg/dl Test 02/02/17 16:24 Bedside Glucose 65 mg/dl Assessment & Plan POSSIBLE PNEUMONIA White count time of admission was 15,890. Chest x-ray demonstrated bibasilar densities, possible pneumonia. Blood cultures obtained and negative thus far. WBC improved. Received doxycycline and piperacillin/tazobactam. Piperacillin/tazobactam discontinued. Continue doxycycline to complete course of therapy. ALTERED MENTAL STATUS CT head demonstrated small vessel ischemic changes, no acute events. Underlying dementia. Possible encephalopathy secondary to pneumonia; possible metabolic encephalopathy secondary to hypoglycemia and/or acute kidney injury. FRACTURE LEFT 4TH RIB No pneumothorax. Pain improving. Continue analgesics PRN. Continue incentive spirometry. LEFT SHOULDER PAIN No fracture or dislocation per plain films. Improving. CORONARY ARTERY DISEASE Stress echo in 2009 demonstrated stress-induced ischemia. Cardiac markers negative. Continue aspirin and metoprolol. HYPERTENSION Continue metoprolol. CHRONIC KIDNEY DISEASE STAGE III / ACUTE KIDNEY INJURY CKD III with baseline creatinine of 1.5 in May 2016. Serum creatinine at time of admission 2.08. Acute kidney injury superimposed on CKD. Holding furosemide. Creatinine today = 1.5. DIABETES MELLITUS TYPE 2 Not well-controlled. Random blood sugar 300 at time of admission. Hemoglobin A1c 8.7. Pharmacy consulted for glycemic management. Receiving Lantus/NovoLog per protocol. Fasting blood sugar this morning = 155. DEMENTIA Monitor for delirium. CHRONIC DVT (present on admission) Venous duplex demonstrated trace chronic thrombus within the right common femoral and superficial femoral veins. VTE PROPHYLAXIS Anticoagulants contraindicated at time of admission due to abrasions of lower extremities from fall with bleeding and possible closed head injury. Started on SQ heparin. DISPOSITION Anticipated return to [facility] with assistance from family and outside resources. Family Medicine follow-up with Dr. Mosley. . Current Inpatient Medications: Current Inpatient Medications Medications (Trade) Dose Ordered Sig/Nato Route Start Time Stop Time Status Last Admin Dose Admin Insulin Aspart (novoLOG ASPART) SLIDING SCALE If C... ACHS SC 01/29/17 12:00 02/28/17 11:59 02/02/17 13:08 5 UNITS Glucose (Glucose 40% Gel) 15-30 GRAMS 15 GRAMS... UD PRN PO 01/29/17 10:45 02/28/17 10:44 Glucose (Glucose Chew Tab) 4-8 Tablets 4 Tabl... UD PRN PO 01/29/17 10:45 02/28/17 10:44 Dextrose (Dextrose 50% 50ML Syringe) 25-50ML OF 50% DW IV FOR... UD PRN IV 01/29/17 10:45 02/28/17 10:44 Glucagon (Glucagon Inj) 1 mg UD PRN SQ 01/29/17 10:45 02/28/17 10:44 Ondansetron HCl (Zofran Inj) 4 mg Q6H PRN IV 01/29/17 11:00 02/28/17 10:59 Aspirin (Ecotrin Tab) 81 mg DAILY PO 01/30/17 09:00 03/01/17 08:59 02/02/17 08:18 81 MG Finasteride (Proscar Tab) 5 mg DAILY PO 01/30/17 09:00 03/01/17 08:59 02/02/17 08:20 5 MG Gabapentin (Neurontin Tab) 600 mg BID PO 01/29/17 21:00 02/28/17 20:59 02/02/17 08:18 600 MG Metoprolol Tartrate (Lopressor Tab) 12.5 mg BID PO 01/29/17 21:00 02/28/17 20:59 02/02/17 08:19 12.5 MG Ranitidine HCl (zANTac TAB) 150 mg BID PO 01/29/17 21:00 02/28/17 20:59 02/02/17 08:19 150 MG Sertraline HCl (Zoloft Tab) 25 mg DAILY PO 01/30/17 09:00 03/01/17 08:59 02/02/17 08:20 25 MG Terazosin HCl (Hytrin Cap) 5 mg HS PO 01/29/17 21:00 02/28/17 20:59 02/01/17 19:35 5 MG Miscellaneous Information (Order Awaiting Action) 1 ea QS N/A 01/29/17 13:00 02/28/17 12:59 01/31/17 18:14 1 EA Clobetasol Propionate (Clobetasol Propionate Oint) 1 appln BID EXT 01/29/17 21:00 02/28/17 20:59 02/02/17 08:21 1 APPLN Pantoprazole Sodium (Protonix Tab) 40 mg QAM PO 01/30/17 09:00 03/01/17 08:59 02/02/17 08:19 40 MG Tramadol HCl (Ultram Tab) 50 mg Q6H PRN PO 01/29/17 12:00 02/28/17 11:59 02/02/17 04:43 50 MG Acetaminophen (Tylenol Tab) 500 mg Q4 PRN PO 01/29/17 12:00 02/28/17 11:59 02/02/17 11:10 500 MG Miscellaneous Information 1 ea UD PRN N/A 01/29/17 12:15 02/28/17 12:14 Miscellaneous Information (Consult Glycemic Management Pharmacy) 1 ea UD PRN N/A 01/29/17 15:30 02/28/17 15:29 Heparin Sodium (Porcine) (Heparin Sq 5000 Unit/0.5ml) 5,000 unit Q12 SQ 01/31/17 21:00 03/02/17 20:59 02/02/17 08:27 5,000 UNIT Doxycycline Hyclate (Vibramycin Cap) 100 mg BID PO 01/31/17 18:00 02/05/17 17:59 02/02/17 08:20 100 MG Insulin Glargine (Lantus Solostar Pen) SEE PROTOCOL TEXT BID SC 01/31/17 17:00 03/02/17 16:59 02/02/17 08:27 25 UNITS Brimonidine/ Timolol (Combigan Oph Soln) 1 drops BID OPR 02/01/17 09:00 03/03/17 08:59 02/02/17 08:21 1 DROPS
[2017-02-03 06:51] LABS: HEMATOCRIT 30.6 % (42-52); MEAN CELL VOLUME 93.6 fL (80-100); MEAN CORPUSCULAR HEMOGLOBIN 30.6 pg (25-34); MEAN CORPUSCULAR HGB CONC 32.7 g/dl (32-36); MEAN PLATELET VOLUME 10.5 fL (7.4-10.4); PLATELET COUNT 202 K/uL (130-400); RED BLOOD COUNT 3.27 M/uL (4.7-6.1); WHITE BLOOD COUNT 7.61 K/uL (4.8-10.8)
[2017-02-03 07:23] LABS: BUN/CREATININE RATIO 21.2 (10-20); CALCIUM 8.3 mg/dl (8.5-10.1); CREATININE 1.41 mg/dl (0.60-1.40); POTASSIUM 4.2 mmol/L (3.5-5.1)
[2017-02-03 07:34] LABS: THYROID STIMULATING HORMONE 0.58 uIu/ml (0.300-4.500)
[2017-02-03 08:00] VITALS: O2SAT 95
[2017-02-03 08:22] VITALS: BP 122/65; PULSE 69; TEMP 36.7; O2SAT 95
[2017-02-03] MEDS: CLOBETASOL PROPIONATE 0.05% OINT 15 GM TUBE EXT SCH ×2 (08:56→21:03)
[2017-02-03] MEDS: BRIMONIDINE TARTRATE TIMOLOL M OPR SCH ×2 (09:06→21:08)
[2017-02-03] MEDS: ASPIRIN 81 MG ECTAB PO SCH (09:06)
[2017-02-03] MEDS: GABAPENTIN 600 MG TAB PO SCH ×2 (09:07→21:02)
[2017-02-03] MEDS: METOPROLOL TARTRATE 25 MG TAB PO SCH ×2 (09:07→21:03)
[2017-02-03] MEDS: RANITIDINE HCL 150 MG TAB PO SCH ×2 (09:08→21:02)
[2017-02-03] MEDS: DOXYCYCLINE HYCLATE 100 MG CAP PO SCH ×2 (09:08→21:02)
[2017-02-03] MEDS: SERTRALINE HCL 50 MG TAB PO SCH (09:08)
[2017-02-03] MEDS: INSULIN ASPART 100 UNITS/ML 3 ML PEN SC SCH ×4 (09:21→20:18)
[2017-02-03] MEDS: HEPARIN SOD 5000 UNIT/0.5 ML CARP SQ SCH ×2 (09:22→20:16)
[2017-02-03] MEDS: INSULIN GLARGINE SOLOSTAR 100 UNITS/ML 3 ML PEN SC SCH ×2 (09:22→20:17)
[2017-02-03] MEDS: PANTOprazole SOD 40 MG TAB PO SCH (09:25)
[2017-02-03] MEDS: FINASTERIDE 5 MG TAB PO SCH (09:26)
--- NOTE | 2017-02-03 14:21 | Pharmacy Progress Note ---
Pharmacy Glycemic Short Note 2 Date of Service Feb 03, 2017. OUTPATIENT ANTIDIABETIC REGIMEN: * Lantus 40 units daily * Humalog 10 units with breakfast/ 8 units with lunch and dinner; CF 1:40 if > 180 at bedtime * A1c = 8.4 % on 06/05/16 and 8.7% on 01/29/17 ASSESSMENT: 01/31/17 * Mr. Arenas received 60 units of insulin yesterday with BSGs ranging from 65- 175 mg/dL over the past 24 hours (significant decrease compared to 84 units on 01/31 and 80 units on 02/01). Insulin regimen consists mostly of basal insulin; pt does not consume many carbs with meals. * Fasting BSG of 98 mg/dL is at goal. Pt has been receiving 21-25 units of Lantus based on BSG . Dose of 25 units BID appears to be slightly too much basal insulin. Will trial 23 units BID. * Will slightly loosen CF/CR since patient had BSG of 65 mg/dL yesterday with dinner. PLAN FOR INPATIENT GLYCEMIC CONTROL: * Basal insulin * Lantus 23 units SQ BID * Bolus insulin - decrease * Novolog ACHS * Goal 120-160 mg/dL * Correction factor: 20 mg/dL/unit * Carb ratio: 6 Thank you.
[2017-02-03 16:01] VITALS: BP 130/71; PULSE 73; TEMP 36.6; O2SAT 97
[2017-02-03 18:00] VITALS: O2SAT 95
--- NOTE | 2017-02-03 18:59 | Progress Note ---
Medicine Progress Note Date & Time of Visit: Feb 03, 2017 at 15:00 . Subjective Better. Left chest wall and shoulder pain improved. No angina. No cough or SOB. No nausea, vomiting, diarrhea. Nephew visiting this morning. . Objective Last 8 Hrs Date Time Temp Pulse Resp B/P (MAP) Pulse Ox O2 Delivery O2 Flow Rate FiO2 02/03/17 18:00 95 Room Air 02/03/17 16:01 36.6 73 18 130/71 (90) 97 Room Air Physical Exam: General- lying in bed, no distress Lungs- clear to auscultation Heart- RRR, I/ systolic murmur at base, no gallop Thorax- less left chest wall tenderness Abdomen- normal bowel sounds, soft, nontender Extremities- trace pretibial edema or calf tenderness Skin- warm and dry; abrasions bilateral knees Neuro- alert, less confused . Laboratory Results: Last 24 Hours Test 02/02/17 20:36 02/03/17 06:20 02/03/17 07:47 02/03/17 11:25 Bedside Glucose 110 mg/dl 98 mg/dl 165 mg/dl White Blood Count 7.61 K/uL Red Blood Count 3.27 M/uL Hemoglobin 10.0 g/dL Hematocrit 30.6 % Mean Corpuscular Volume 93.6 fL Mean Corpuscular Hemoglobin 30.6 pg Mean Corpuscular Hemoglobin Concent 32.7 g/dl RDW Standard Deviation 49.7 fL RDW Coefficient of Variation 14.7 % Platelet Count 202 K/uL Mean Platelet Volume 10.5 fL Sodium Level 140 mmol/L Potassium Level 4.2 mmol/L Chloride Level 108 mmol/L Carbon Dioxide Level 29 mmol/L Anion Gap 4.0 mmol/L Blood Urea Nitrogen 30 mg/dl Creatinine 1.41 mg/dl Est Creatinine Clear Calc Drug Dose 44.6 ml/min Estimated GFR () 53.8 Estimated GFR (Non- 46.4 BUN/Creatinine Ratio 21.2 Random Glucose 105 mg/dl Calcium Level 8.3 mg/dl Iron Level 32 mcg/dl Total Iron Binding Capacity 211 mcg/dl Transferrin 155 mg/dl Transferrin % Saturation 15 % Vitamin B12 Level 398 pg/mL 25-Hydroxy Vitamin D Total 21.0 ng/ml Folate 14.33 ng/mL Thyroid Stimulating Hormone (TSH) 0.580 uIu/ml Test 02/03/17 16:45 02/03/17 17:43 Bedside Glucose 68 mg/dl 77 mg/dl Assessment & Plan POSSIBLE PNEUMONIA White count time of admission was 15,890. Chest x-ray demonstrated bibasilar densities, possible pneumonia. Blood cultures obtained and negative thus far. WBC improved. Received doxycycline and piperacillin/tazobactam. Piperacillin/tazobactam discontinued. Continue doxycycline to complete course of therapy. ALTERED MENTAL STATUS CT head demonstrated small vessel ischemic changes, no acute events. Underlying dementia. Possible encephalopathy secondary to pneumonia; possible metabolic encephalopathy secondary to hypoglycemia and/or acute kidney injury. FRACTURE LEFT 4TH RIB No pneumothorax. Pain improving. Continue analgesics PRN. Continue incentive spirometry. LEFT SHOULDER PAIN No fracture or dislocation per plain films. Improving. CORONARY ARTERY DISEASE Stress echo in 2009 demonstrated stress-induced ischemia. Cardiac markers negative. Continue aspirin and metoprolol. HYPERTENSION Continue metoprolol. CHRONIC KIDNEY DISEASE STAGE III / ACUTE KIDNEY INJURY CKD III with baseline creatinine of 1.5 in May 2016. Serum creatinine at time of admission 2.08. Acute kidney injury superimposed on CKD. Holding furosemide. Creatinine today = 1.41. DIABETES MELLITUS TYPE 2 Not well-controlled. Random blood sugar 300 at time of admission. Hemoglobin A1c 8.7. Pharmacy consulted for glycemic management. Receiving Lantus/NovoLog per protocol. Fasting blood sugar this morning = 98. DEMENTIA Monitor for delirium. CHRONIC DVT (present on admission) Venous duplex demonstrated trace chronic thrombus within the right common femoral and superficial femoral veins. VTE PROPHYLAXIS Anticoagulants contraindicated at time of admission due to abrasions of lower extremities from fall with bleeding and possible closed head injury. Started on SQ heparin. DISPOSITION Nephew is primary family contact. Family is committed to ongoing residence [facility] with assistance from family and outside resources. Family Medicine follow-up with Dr. Mosley. . Current Inpatient Medications: Current Inpatient Medications Medications (Trade) Dose Ordered Sig/Nato Route Start Time Stop Time Status Last Admin Dose Admin Insulin Aspart (novoLOG ASPART) SLIDING SCALE If C... ACHS SC 01/29/17 12:00 02/28/17 11:59 02/03/17 11:50 5 UNITS Glucose (Glucose 40% Gel) 15-30 GRAMS 15 GRAMS... UD PRN PO 01/29/17 10:45 02/28/17 10:44 Glucose (Glucose Chew Tab) 4-8 Tablets 4 Tabl... UD PRN PO 01/29/17 10:45 02/28/17 10:44 Dextrose (Dextrose 50% 50ML Syringe) 25-50ML OF 50% DW IV FOR... UD PRN IV 01/29/17 10:45 02/28/17 10:44 Glucagon (Glucagon Inj) 1 mg UD PRN SQ 01/29/17 10:45 02/28/17 10:44 Ondansetron HCl (Zofran Inj) 4 mg Q6H PRN IV 01/29/17 11:00 02/28/17 10:59 Aspirin (Ecotrin Tab) 81 mg DAILY PO 01/30/17 09:00 03/01/17 08:59 02/03/17 09:06 81 MG Finasteride (Proscar Tab) 5 mg DAILY PO 01/30/17 09:00 03/01/17 08:59 02/03/17 09:26 5 MG Gabapentin (Neurontin Tab) 600 mg BID PO 01/29/17 21:00 02/28/17 20:59 02/03/17 09:07 600 MG Metoprolol Tartrate (Lopressor Tab) 12.5 mg BID PO 01/29/17 21:00 02/28/17 20:59 02/03/17 09:07 12.5 MG Ranitidine HCl (zANTac TAB) 150 mg BID PO 01/29/17 21:00 02/28/17 20:59 02/03/17 09:08 150 MG Sertraline HCl (Zoloft Tab) 25 mg DAILY PO 01/30/17 09:00 03/01/17 08:59 02/03/17 09:08 25 MG Terazosin HCl (Hytrin Cap) 5 mg HS PO 01/29/17 21:00 02/28/17 20:59 02/02/17 22:14 5 MG Miscellaneous Information (Order Awaiting Action) 1 ea QS N/A 01/29/17 13:00 02/28/17 12:59 01/31/17 18:14 1 EA Clobetasol Propionate (Clobetasol Propionate Oint) 1 appln BID EXT 01/29/17 21:00 02/28/17 20:59 02/03/17 08:56 1 APPLN Pantoprazole Sodium (Protonix Tab) 40 mg QAM PO 01/30/17 09:00 03/01/17 08:59 02/03/17 09:25 40 MG Tramadol HCl (Ultram Tab) 50 mg Q6H PRN PO 01/29/17 12:00 02/28/17 11:59 02/02/17 22:13 50 MG Acetaminophen (Tylenol Tab) 500 mg Q4 PRN PO 01/29/17 12:00 02/28/17 11:59 02/02/17 11:10 500 MG Miscellaneous Information 1 ea UD PRN N/A 01/29/17 12:15 02/28/17 12:14 Miscellaneous Information (Consult Glycemic Management Pharmacy) 1 ea UD PRN N/A 01/29/17 15:30 02/28/17 15:29 Heparin Sodium (Porcine) (Heparin Sq 5000 Unit/0.5ml) 5,000 unit Q12 SQ 01/31/17 21:00 03/02/17 20:59 02/03/17 09:22 5,000 UNIT Doxycycline Hyclate (Vibramycin Cap) 100 mg BID PO 01/31/17 18:00 02/05/17 17:59 02/03/17 09:08 100 MG Brimonidine/ Timolol (Combigan Oph Soln) 1 drops BID OPR 02/01/17 09:00 03/03/17 08:59 02/03/17 09:06 1 DROPS Insulin Glargine (Lantus Solostar Pen) 23 units BID SC 02/03/17 21:00 03/05/17 20:59
[2017-02-03 21:09] VITALS: BP 145/79; PULSE 72; TEMP 36.4; O2SAT 97
[2017-02-04] VITALS (7 sets, daily range): BP systolic 122–130; BP diastolic 69–75; PULSE 61–83; TEMP 36.6–36.9; O2SAT 95–97
[2017-02-04] MEDS: TRAMADOL HCL 50 MG TAB PO PRN ×2 (03:06→21:49)
[2017-02-04] MEDS: INSULIN ASPART 100 UNITS/ML 3 ML PEN SC SCH ×4 (07:51→20:37)
[2017-02-04] MEDS: HEPARIN SOD 5000 UNIT/0.5 ML CARP SQ SCH ×2 (07:52→20:43)
[2017-02-04] MEDS: INSULIN GLARGINE SOLOSTAR 100 UNITS/ML 3 ML PEN SC SCH (07:52)
[2017-02-04] MEDS: CLOBETASOL PROPIONATE 0.05% OINT 15 GM TUBE EXT SCH ×2 (07:56→20:33)
[2017-02-04] MEDS: BRIMONIDINE TARTRATE TIMOLOL M OPR SCH ×2 (07:57→20:33)
[2017-02-04] MEDS: ASPIRIN 81 MG ECTAB PO SCH (07:58)
[2017-02-04] MEDS: GABAPENTIN 600 MG TAB PO SCH ×2 (07:59→20:36)
[2017-02-04] MEDS: FINASTERIDE 5 MG TAB PO SCH (07:59)
[2017-02-04] MEDS: METOPROLOL TARTRATE 25 MG TAB PO SCH ×2 (07:59→20:36)
[2017-02-04] MEDS: PANTOprazole SOD 40 MG TAB PO SCH (07:59)
[2017-02-04] MEDS: RANITIDINE HCL 150 MG TAB PO SCH ×2 (08:00→20:37)
[2017-02-04] MEDS: DOXYCYCLINE HYCLATE 100 MG CAP PO SCH ×2 (08:00→20:37)
[2017-02-04] MEDS: SERTRALINE HCL 50 MG TAB PO SCH (08:00)
--- NOTE | 2017-02-04 12:02 | Pharmacy Progress Note ---
Pharmacy Glycemic Short Note 2 Date of Service Feb 04, 2017. OUTPATIENT ANTIDIABETIC REGIMEN: * Lantus 40 units SQ daily in AM * Humalog 10 units with breakfast + 8 units with lunch & supper * Total daily dose = 66 units * A1c = 8.7% on 01/30/17 ASSESSMENT: * BSGs over the past 24hrs: 98, 165, 68/77, 169, 121 * Current Orders: * Lantus 23 units SQ BID * NovoLog ACHS, goal 120-160 mg/dl CF= 25, CR =7 * Pt with LOW BSG yesterday prior to dinner likely secondary to NovoLog given with lunch per parameters, parameters were 20/6 per CF/CR respectively. After LOW BSG NovoLog parameters loosened to 25/7. No insulin coverage was needed for dinner since "low" end of goal range is somewhat elevated (this subtracts off CHO coverage when BSG is below the low end of the goal range) * AM fasting BSG is in goal range this morning at 121mg/dl * However, Pt takes his basal insulin once daily in the AM. Will start transitioning back to once daily dosing in AM for patient convenience PLAN FOR INPATIENT GLYCEMIC CONTROL: * Hold outpatient oral diabetes medications * Basal insulin * Lantus 23 units SQ BID --> work back to 40 units SQ daily in AM. Pt was given 23 units this AM, will give 17 units today with dinner and then resume once daily Lantus tomorrow AM. * Bolus insulin * NovoLog per scale ACHS or Q6hrs while NPO * Goal Range: Low 120 mg/dL - High 160 mg/dL * Correction Factor: 25 mg/dL/unit * Nutritional / Prandial insulin per carb ratio of 1 unit per 7 grams CHO consumed
[2017-02-04] MEDS: ACETAMINOPHEN 500 MG TAB PO PRN (16:07)
[2017-02-04] MEDS ORDERED: INSULIN GLARGINE SOLOSTAR 100 UNITS/ML 3 ML PEN SC SCH (16:45)
--- NOTE | 2017-02-04 20:17 | Progress Note ---
Medicine Progress Note Date & Time of Visit: Feb 04, 2017 at 19:40 . Subjective Left chest wall pain improved. No cough or SOB. No nausea or vomiting. No diarrhea. . Objective Last 8 Hrs Date Time Temp Pulse Resp B/P (MAP) Pulse Ox O2 Delivery O2 Flow Rate FiO2 02/04/17 16:00 Room Air 02/04/17 15:36 36.8 67 18 122/72 (89) 96 Room Air Physical Exam: General- lying in bed, no distress Lungs- clear to auscultation Heart- RRR, I/ systolic murmur at base, no gallop Thorax- less left chest wall tenderness Abdomen- normal bowel sounds, soft, nontender Extremities- trace pretibial edema or calf tenderness Skin- warm and dry; abrasions bilateral knees Neuro- alert, somewhat confused . Laboratory Results: Last 24 Hours Test 02/04/17 07:35 02/04/17 11:32 02/04/17 16:23 Bedside Glucose 121 mg/dl 149 mg/dl 146 mg/dl Assessment & Plan POSSIBLE PNEUMONIA White count time of admission was 15,890. Chest x-ray demonstrated bibasilar densities, possible pneumonia. Blood cultures obtained and negative thus far. WBC improved. Received doxycycline and piperacillin/tazobactam. Piperacillin/tazobactam discontinued. Continue doxycycline to complete 7 day course of therapy (today is day 7). ALTERED MENTAL STATUS CT head demonstrated small vessel ischemic changes, no acute events. Underlying dementia. Possible encephalopathy secondary to pneumonia; possible metabolic encephalopathy secondary to hypoglycemia and/or acute kidney injury. FRACTURE LEFT 4TH RIB No pneumothorax. Pain improving. Continue analgesics PRN. Continue incentive spirometry. LEFT SHOULDER PAIN No fracture or dislocation per plain films. Improving. CORONARY ARTERY DISEASE Stress echo in 2009 demonstrated stress-induced ischemia. Cardiac markers negative. Continue aspirin and metoprolol. HYPERTENSION Continue metoprolol. CHRONIC KIDNEY DISEASE STAGE III / ACUTE KIDNEY INJURY CKD III with baseline creatinine of 1.5 in May 2016. Serum creatinine at time of admission 2.08. Acute kidney injury superimposed on CKD. Holding furosemide. Creatinine 02/03 was 1.41. DIABETES MELLITUS TYPE 2 Not well-controlled. Random blood sugar 300 at time of admission. Hemoglobin A1c 8.7. Pharmacy consulted for glycemic management. Receiving Lantus/NovoLog per protocol. Fasting blood sugar this morning = 121. DEMENTIA Monitor for delirium. CHRONIC DVT (present on admission) Venous duplex demonstrated trace chronic thrombus within the right common femoral and superficial femoral veins. VTE PROPHYLAXIS Anticoagulants contraindicated at time of admission due to abrasions of lower extremities from fall with bleeding and possible closed head injury. Subsequently started on SQ heparin. DISPOSITION Nephew is primary family contact. Family was hoping that he could return to [facility] [place] with assistance from family and outside resources. However, appears that skilled care will be necessary. Case Management consulted. Family Medicine follow-up with Dr. Mosley. . Current Inpatient Medications: Current Inpatient Medications Medications (Trade) Dose Ordered Sig/Nato Route Start Time Stop Time Status Last Admin Dose Admin Insulin Aspart (novoLOG ASPART) SLIDING SCALE If C... ACHS SC 01/29/17 12:00 02/28/17 11:59 02/04/17 17:56 4 UNITS Glucose (Glucose 40% Gel) 15-30 GRAMS 15 GRAMS... UD PRN PO 01/29/17 10:45 02/28/17 10:44 Glucose (Glucose Chew Tab) 4-8 Tablets 4 Tabl... UD PRN PO 01/29/17 10:45 02/28/17 10:44 Dextrose (Dextrose 50% 50ML Syringe) 25-50ML OF 50% DW IV FOR... UD PRN IV 01/29/17 10:45 02/28/17 10:44 Glucagon (Glucagon Inj) 1 mg UD PRN SQ 01/29/17 10:45 02/28/17 10:44 Ondansetron HCl (Zofran Inj) 4 mg Q6H PRN IV 01/29/17 11:00 02/28/17 10:59 Aspirin (Ecotrin Tab) 81 mg DAILY PO 01/30/17 09:00 03/01/17 08:59 02/04/17 07:58 81 MG Finasteride (Proscar Tab) 5 mg DAILY PO 01/30/17 09:00 03/01/17 08:59 02/04/17 07:59 5 MG Gabapentin (Neurontin Tab) 600 mg BID PO 01/29/17 21:00 02/28/17 20:59 02/04/17 07:59 600 MG Metoprolol Tartrate (Lopressor Tab) 12.5 mg BID PO 01/29/17 21:00 02/28/17 20:59 02/04/17 07:59 12.5 MG Ranitidine HCl (zANTac TAB) 150 mg BID PO 01/29/17 21:00 02/28/17 20:59 02/04/17 08:00 150 MG Sertraline HCl (Zoloft Tab) 25 mg DAILY PO 01/30/17 09:00 03/01/17 08:59 02/04/17 08:00 25 MG Terazosin HCl (Hytrin Cap) 5 mg HS PO 01/29/17 21:00 02/28/17 20:59 02/03/17 21:02 5 MG Miscellaneous Information (Order Awaiting Action) 1 ea QS N/A 01/29/17 13:00 02/28/17 12:59 01/31/17 18:14 1 EA Clobetasol Propionate (Clobetasol Propionate Oint) 1 appln BID EXT 01/29/17 21:00 02/28/17 20:59 02/04/17 07:56 1 APPLN Pantoprazole Sodium (Protonix Tab) 40 mg QAM PO 01/30/17 09:00 03/01/17 08:59 02/04/17 07:59 40 MG Tramadol HCl (Ultram Tab) 50 mg Q6H PRN PO 01/29/17 12:00 02/28/17 11:59 02/04/17 03:06 50 MG Acetaminophen (Tylenol Tab) 500 mg Q4 PRN PO 01/29/17 12:00 02/28/17 11:59 02/04/17 16:07 500 MG Miscellaneous Information 1 ea UD PRN N/A 01/29/17 12:15 02/28/17 12:14 Miscellaneous Information (Consult Glycemic Management Pharmacy) 1 ea UD PRN N/A 01/29/17 15:30 02/28/17 15:29 Heparin Sodium (Porcine) (Heparin Sq 5000 Unit/0.5ml) 5,000 unit Q12 SQ 01/31/17 21:00 03/02/17 20:59 02/04/17 07:52 5,000 UNIT Doxycycline Hyclate (Vibramycin Cap) 100 mg BID PO 01/31/17 18:00 02/05/17 17:59 02/04/17 08:00 100 MG Brimonidine/ Timolol (Combigan Oph Soln) 1 drops BID OPR 02/01/17 09:00 03/03/17 08:59 02/04/17 07:57 1 DROPS Insulin Glargine (Lantus Solostar Pen) 17 units TODAY@1645 DE 02/04/17 16:45 02/04/17 23:59 02/04/17 17:57 17 UNITS Insulin Glargine (Lantus Solostar Pen) 35 units DAILY DE 02/05/17 09:00 03/07/17 08:59
[2017-02-05] VITALS: O2SAT 97
[2017-02-05 07:11] VITALS: BP 103/54; PULSE 66; TEMP 36.9; O2SAT 93
[2017-02-05] MEDS: SERTRALINE HCL 50 MG TAB PO SCH (08:39)
[2017-02-05] MEDS: BRIMONIDINE TARTRATE TIMOLOL M OPR SCH ×2 (08:40→20:48)
[2017-02-05] MEDS: RANITIDINE HCL 150 MG TAB PO SCH ×2 (08:40→20:50)
[2017-02-05] MEDS: GABAPENTIN 600 MG TAB PO SCH ×2 (08:40→20:50)
[2017-02-05] MEDS: METOPROLOL TARTRATE 25 MG TAB PO SCH ×2 (08:40→20:50)
[2017-02-05] MEDS: FINASTERIDE 5 MG TAB PO SCH (08:40)
[2017-02-05] MEDS: ASPIRIN 81 MG ECTAB PO SCH (08:40)
[2017-02-05] MEDS: PANTOprazole SOD 40 MG TAB PO SCH (08:40)
[2017-02-05] MEDS: CLOBETASOL PROPIONATE 0.05% OINT 15 GM TUBE EXT SCH ×2 (08:40→20:49)
[2017-02-05] MEDS: INSULIN ASPART 100 UNITS/ML 3 ML PEN SC SCH ×4 (08:41→20:46)
[2017-02-05] MEDS: INSULIN GLARGINE SOLOSTAR 100 UNITS/ML 3 ML PEN SC SCH ×2 (08:42→12:01)
[2017-02-05] MEDS: HEPARIN SOD 5000 UNIT/0.5 ML CARP SQ SCH ×2 (08:43→20:58)
[2017-02-05] MEDS ORDERED: INSULIN GLARGINE SOLOSTAR 100 UNITS/ML 3 ML PEN SC SCH ×2 (09:00)
--- NOTE | 2017-02-05 10:52 | Pharmacy Progress Note ---
Pharmacy Glycemic Short Note 2 Date of Service Feb 05, 2017. OUTPATIENT ANTIDIABETIC REGIMEN: * Lantus 40 units SQ daily in AM * Humalog 10 units with breakfast + 8 units with lunch & supper * Total daily dose = 66 units * A1c = 8.7% on 01/30/17 ASSESSMENT: * Pt has been requiring ~ 53 units of insulin per day with near adequate control * ~ 40 units of basal insulin (have been tapering down over the past few days) + only 12 units of prandial/correctional insulin (low CHO intake) * BSGs 02/03: 98, 165,68/77, 169 * BSGs 02/04: 121, 149, 146, 105 * BSGs 02/05: 88 * Current Orders: * Lantus 23 units SQ in AM + 17 units at dinner (40 units/day) --> trying to work back to daily in AM dosing to be c/w outpatient dosing. * NovoLog ACHS, goal 120-160 mg/dl CF= 25, CR =7 * AM fasting BSG is BELOW goal range this morning at 88 mg/dl * Will continue transitioning back to once daily dosing in AM for patient convenience, but since BSG is on the low side will break up AM dose as half with breakfast and half with lunch (patient still has Lantus on board from dinner last evening so hesitant to give full daily dose with AM with lower BSG) . * Will decrease dose to prevent LOW tomorrow. PLAN FOR INPATIENT GLYCEMIC CONTROL: * Hold outpatient oral diabetes medications * Basal insulin * Working back to outpatient dosing of SQ daily in AM and decrease dose. * Pt was given 17 units with dinner last evening, patient still has this dose on board. Hesitant to give full AM dose this morning since fasting BSG is on the lower side at 88mg/dl. Will give 30 units today, but give as Lantus 15 units with breakfast + 15 units with lunch. * Resume Lantus 30 units SQ daily in AM tomorrow. * Bolus insulin: no change * NovoLog per scale ACHS or Q6hrs while NPO * Goal Range: Low 120 mg/dL - High 160 mg/dL * Correction Factor: 25 mg/dL/unit * Nutritional / Prandial insulin per carb ratio of 1 unit per 7 grams CHO consumed
[2017-02-05] MEDS ORDERED: TRAMADOL HCL 50 MG TAB PO PRN (11:45)
[2017-02-05] MEDS ORDERED: TRAMADOL HCL 50 MG TAB PO ONE (12:30)
[2017-02-05] MEDS ORDERED: ACETAMINOPHEN 500 MG TAB PO ONE (12:30)
[2017-02-05 15:25] VITALS: BP 91/58; PULSE 79; TEMP 36.9; O2SAT 98
[2017-02-05 19:40] VITALS: BP 99/55; PULSE 72
[2017-02-05 21:00] VITALS: BP 125/70; PULSE 73
[2017-02-05 22:36] VITALS: BP 157/83; PULSE 72; TEMP 36.6; O2SAT 94
[2017-02-06 07:03] VITALS: BP 154/78; PULSE 76; TEMP 36.7; O2SAT 95
[2017-02-06] MEDS: PANTOprazole SOD 40 MG TAB PO SCH (07:41)
[2017-02-06] MEDS: FINASTERIDE 5 MG TAB PO SCH (07:41)
[2017-02-06] MEDS: GABAPENTIN 600 MG TAB PO SCH ×2 (07:41→21:06)
[2017-02-06] MEDS: SERTRALINE HCL 50 MG TAB PO SCH (07:41)
[2017-02-06] MEDS: METOPROLOL TARTRATE 25 MG TAB PO SCH ×2 (07:42→21:05)
[2017-02-06] MEDS: BRIMONIDINE TARTRATE TIMOLOL M OPR SCH ×2 (07:42→21:04)
[2017-02-06] MEDS: CLOBETASOL PROPIONATE 0.05% OINT 15 GM TUBE EXT SCH ×2 (07:42→21:04)
[2017-02-06] MEDS: ASPIRIN 81 MG ECTAB PO SCH (07:42)
[2017-02-06] MEDS: HEPARIN SOD 5000 UNIT/0.5 ML CARP SQ SCH ×2 (07:44→21:12)
[2017-02-06] MEDS: INSULIN ASPART 100 UNITS/ML 3 ML PEN SC SCH ×4 (07:51→21:11)
[2017-02-06] MEDS: RANITIDINE HCL 150 MG TAB PO SCH ×2 (07:52→21:06)
[2017-02-06] MEDS: INSULIN GLARGINE SOLOSTAR 100 UNITS/ML 3 ML PEN SC SCH (07:54)
--- NOTE | 2017-02-06 11:45 | Pharmacy Progress Note ---
Pharmacy Glycemic Short Note 2 Date of Service Feb 06, 2017. OUTPATIENT ANTIDIABETIC REGIMEN: * Lantus 40 units daily and Humalog units with meals ASSESSMENT: * Mr Dagoberto Castillo is an 81 y/o M admitted with pneumonia and a fall. He recently finished treatment for pneumonia and is currently awaiting placement. His blood sugar yesterday ranged from 69-136 mg/dL -- he received around 41 units of insulin with 30 units being basal. Today his fasting blood sugar was 95 mg/dL. Basal dose was cut in half to 15 units today. Lunch blood sugar was 82 mg/dL. * Since the patient has continued blood sugar less than 100 mg/dL, will loosen Novolog to just correction factor for now. Also held Lantus for tomorrow morning to allow for evaluation before the dose is due. Monitor closely. PLAN FOR INPATIENT GLYCEMIC CONTROL: * Basal insulin * Lantus 15 units SQ in the morning - on hold after today's dose * Bolus insulin * NovoLog per scale ACHS or Q6hrs while NPO * Goal Range: Low 140 mg/dL - High 180 mg/dL * Correction Factor: 45 mg/dL/unit * Nutritional / Prandial insulin per carb ratio of 1 unit per -- grams CHO consumed (on hold until blood sugars recover) PLAN FOR DISCHARGE: * see note from 01/30/17
[2017-02-06 14:45] VITALS: BP 127/68; PULSE 68; TEMP 36.7; O2SAT 98
[2017-02-06] MEDS: TRAMADOL HCL 50 MG TAB PO PRN ×2 (16:23→22:42)
[2017-02-06 17:46] VITALS: O2SAT 95
--- NOTE | 2017-02-06 19:40 | Progress Note ---
Medicine Progress Note Date & Time of Visit: Feb 06, 2017 at 17:32. Subjective 81 yo M presented to the hospital s/p mechanical fall at home. Mongolian language instructor was used to obtain all information from patient today. He reports some persistent chest and shoulder pain that is worse between his shoulder blades as a result of the fall. He is tolerating PO without issue. He is ambulating with some assistance. He otherwise denies any SOB, fevers, chills, abdominal pain or any other symptoms today. Objective Last 8 Hrs Date Time Temp Pulse Resp B/P (MAP) Pulse Ox O2 Delivery O2 Flow Rate FiO2 02/06/17 14:45 36.7 68 18 127/68 (87) 98 Room Air Physical Exam: GEN: WNWD, in no acute distress, alert and appropriate HEENT: NC/AT, normal sclerae, MMM CARDIO: reg rate, S1/2 heard without m/g/r LUNGS: CTA bilaterally, no crackles, rales or wheezes, good diaphragmatic excursion ABD: soft, non-tender, non-distended, no rebound or guarding, +BS EXTREMITY: RP and DP palpable 2+ bilat, no LE swelling or edema, extremities are warm and well-perfused NEURO: CN 2-12 grossly intact MUSC: moves all extremities equally, deconditioning noted. SKIN: warm and dry Laboratory Results: 02/03/17 06:20 02/03/17 06:20 Test 01/29/17 09:00 01/29/17 23:17 01/30/17 05:50 01/30/17 20:13 Total Bilirubin 0.4 mg/dl (0.2-1) Direct Bilirubin 0.1 mg/dl (0-0.2) Aspartate Amino Transf (AST/SGOT) 19 U/L (15-37) Alanine Aminotransferase (ALT/SGPT) 22 U/L (12-78) Alkaline Phosphatase 96 U/L (45-117) Total Protein 7.7 gm/dl (6.4-8.2) Albumin 3.2 gm/dl (3.4-5.0) Total Creatine Kinase 210 U/L (39-308) Immature Granulocyte % (Auto) 0.3 % White Blood Count 9.27 K/uL (4.8-10.8) Red Blood Count 3.31 M/uL (4.7-6.1) Hemoglobin 10.0 g/dL (14.0-18.0) Hematocrit 30.7 % (42-52) Mean Corpuscular Volume 92.7 fL (80-100) Mean Corpuscular Hemoglobin 30.2 pg (25-34) Mean Corpuscular Hemoglobin Concent 32.6 g/dl (32-36) Platelet Count 183 K/uL (130-400) Mean Platelet Volume 10.7 fL (7.4-10.4) Neutrophils (%) (Auto) 75.3 % Lymphocytes (%) (Auto) 11.7 % Monocytes (%) (Auto) 12.1 % Eosinophils (%) (Auto) 0.5 % Basophils (%) (Auto) 0.1 % Neutrophils # (Auto) 6.98 K/uL (1.4-6.5) Lymphocytes # (Auto) 1.08 K/uL (1.2-3.4) Monocytes # (Auto) 1.12 K/uL (0.11-0.59) Eosinophils # (Auto) 0.05 K/uL (0-0.5) Basophils # (Auto) 0.01 K/uL (0-0.2) Immature Granulocyte # (Auto) 0.03 K/uL (0.00-0.02) Estimated Average Glucose 203 mg/dl Hemoglobin A1c 8.7 % (4.5-5.6) Urine Color YELLOW Urine Appearance CLEAR (CLEAR) Urine pH 5.5 (4.5-7.5) Urine Specific [place] 1.016 (1.000-1.030) Urine Protein 1+ (NEG) Urine Glucose (UA) 1+ (NEG) Urine Ketones NEG (NEG) Urine Occult Blood TRACE (NEG) Urine Nitrite NEG (NEG) Urine Bilirubin NEG (NEG) Urine Urobilinogen NEG (NEG) Urine Leukocyte Esterase TRACE (NEG) Urine WBC (Auto) 1-5 /hpf (0-5) Urine RBC (Auto) 0-4 /hpf (0-4) Urine Hyaline Casts (Auto) 1-5 /lpf (0-5) Urine Epithelial Cells (Auto) 10-20 /lpf (0-5) Urine Bacteria (Auto) NEG (NEG) Test 01/31/17 11:50 02/03/17 06:20 02/05/17 09:21 02/06/17 16:34 Prothrombin Time 10.6 SECONDS (9.0-12.0) Prothromb Time International Ratio 1.0 (0.9-1.1) Activated Partial Thromboplast Time 28.3 SECONDS (21.0-31.0) Partial Thromboplastin Ratio 1.1 Red Blood Count 3.27 M/uL (4.7-6.1) Mean Corpuscular Volume 93.6 fL (80-100) Mean Corpuscular Hemoglobin 30.6 pg (25-34) Mean Corpuscular Hemoglobin Concent 32.7 g/dl (32-36) RDW Standard Deviation 49.7 fL (36.4-46.3) RDW Coefficient of Variation 14.7 % (11.5-14.5) Mean Platelet Volume 10.5 fL (7.4-10.4) Anion Gap 4.0 mmol/L (3-11) Est Creatinine Clear Calc Drug Dose 44.6 ml/min Estimated GFR () 53.8 Estimated GFR (Non- 46.4 BUN/Creatinine Ratio 21.2 (10-20) Calcium Level 8.3 mg/dl (8.5-10.1) Iron Level 32 mcg/dl (35-175) Total Iron Binding Capacity 211 mcg/dl (250-450) Transferrin 155 mg/dl (200-360) Transferrin % Saturation 15 % (20-50) Vitamin B12 Level 398 pg/mL (211-911) 25-Hydroxy Vitamin D Total 21.0 ng/ml (30-100) Folate 14.33 ng/mL (>5.38) Thyroid Stimulating Hormone (TSH) 0.580 uIu/ml (0.300-4.500) Creatine Kinase MB 0.9 ng/ml (0.5-3.6) Creatine Kinase MB Ratio (0-3.0) Troponin I < 0.015 ng/ml (0-0.045) Bedside Glucose 85 mg/dl (70-99) Date/Time Source Procedure Growth Status 01/29/17 09:53 Blood Blood Culture - Preliminary NO GROWTH TO DATE. Resulted 01/29/17 21:45 Nasal MRSA DNA Surveillance Screen - Final Specimen Negative for MRSA by DNA Probe Complete 01/29/17 21:45 Urine , Clean Catch Urine Culture - Final NO GROWTH - LESS THAN 1,000 COLONIES/ML Complete Last 24 Hours Test 02/05/17 20:32 02/06/17 07:21 02/06/17 11:13 02/06/17 16:34 Bedside Glucose 92 mg/dl 95 mg/dl 82 mg/dl 85 mg/dl Assessment & Plan 81 yo M presented to the hospital s/p mechanical fall at home. Mongolian language instructor was used to obtain all information from patient today. He reports some persistent chest and shoulder pain that is worse between his shoulder blades as a result of the fall. He is tolerating PO without issue. He is ambulating with some assistance. He otherwise denies any SOB, fevers, chills, abdominal pain or any other symptoms today. 1. Dementia 2. Left 4th rib fracture s/p mechanical fall-cont analgesics PRN, cont incentive spirometry 3. Pneumonia-Completed a course of doxycycline. Pt is not coughing, denies fevers, chills or other symptoms at this time. Oxygenating on room air. Will require a CXR as outpatient in 4-6 weeks to ensure complete resolution. 4. Metabolic encephalopathy 2/2 underlying pneumonia-resolved. CT head revealed no acute events. 5. CAD: stable, cardiac marker this admission have been negative. Cont medical management with ASA and metoprolol. 6. HTN: controlled, cont current management. 7. CKD III-creatinine is at baseline with resolution of JENNIFER. Lasix is being held. 8. DMII-A1C 8.7. Pharmacy consulted for glycemic management. Cont ISS/ glargine. 9. Chronic DVT-POA, no treatment indicated at this time. 10. Anemia-likely multifactorial etiology including ACD and blood loss from daily phlebotomy. Baseline is around 11.5/35. No acute bleeding or indication for transfusion at this time. Monitor. DVT proph: heparin Full Code Dispo-to SNF once we are able to find a place with 17/09 Mongolian language instructor. Pt lives in The [facility] in [place]. CM working the issue with referrals in place. Carmella Eubanks DO [facility] Hospitalist Current Inpatient Medications: Current Inpatient Medications Medications (Trade) Dose Ordered Sig/Nato Route Start Time Stop Time Status Last Admin Dose Admin Insulin Aspart (novoLOG ASPART) SLIDING SCALE If C... ACHS SC 01/29/17 12:00 02/28/17 11:59 02/05/17 18:00 1 UNITS Glucose (Glucose 40% Gel) 15-30 GRAMS 15 GRAMS... UD PRN PO 01/29/17 10:45 02/28/17 10:44 Glucose (Glucose Chew Tab) 4-8 Tablets 4 Tabl... UD PRN PO 01/29/17 10:45 02/28/17 10:44 Dextrose (Dextrose 50% 50ML Syringe) 25-50ML OF 50% DW IV FOR... UD PRN IV 01/29/17 10:45 02/28/17 10:44 Glucagon (Glucagon Inj) 1 mg UD PRN SQ 01/29/17 10:45 02/28/17 10:44 Ondansetron HCl (Zofran Inj) 4 mg Q6H PRN IV 01/29/17 11:00 02/28/17 10:59 Aspirin (Ecotrin Tab) 81 mg DAILY PO 01/30/17 09:00 03/01/17 08:59 02/06/17 07:42 81 MG Finasteride (Proscar Tab) 5 mg DAILY PO 01/30/17 09:00 03/01/17 08:59 02/06/17 07:41 5 MG Gabapentin (Neurontin Tab) 600 mg BID PO 01/29/17 21:00 02/28/17 20:59 02/06/17 07:41 600 MG Metoprolol Tartrate (Lopressor Tab) 12.5 mg BID PO 01/29/17 21:00 02/28/17 20:59 02/06/17 07:42 12.5 MG Ranitidine HCl (zANTac TAB) 150 mg BID PO 01/29/17 21:00 02/28/17 20:59 02/06/17 07:52 150 MG Sertraline HCl (Zoloft Tab) 25 mg DAILY PO 01/30/17 09:00 03/01/17 08:59 02/06/17 07:41 25 MG Terazosin HCl (Hytrin Cap) 5 mg HS PO 01/29/17 21:00 02/28/17 20:59 02/05/17 20:51 5 MG Miscellaneous Information (Order Awaiting Action) 1 ea QS N/A 01/29/17 13:00 02/28/17 12:59 01/31/17 18:14 1 EA Clobetasol Propionate (Clobetasol Propionate Oint) 1 appln BID EXT 01/29/17 21:00 02/28/17 20:59 02/06/17 07:42 1 APPLN Pantoprazole Sodium (Protonix Tab) 40 mg QAM PO 01/30/17 09:00 03/01/17 08:59 02/06/17 07:41 40 MG Tramadol HCl (Ultram Tab) 50 mg Q6H PRN PO 01/29/17 12:00 02/28/17 11:59 02/06/17 16:23 50 MG Acetaminophen (Tylenol Tab) 500 mg Q4 PRN PO 01/29/17 12:00 02/28/17 11:59 02/04/17 16:07 500 MG Miscellaneous Information (Consult Glycemic Management Pharmacy) 1 ea UD PRN N/A 01/29/17 15:30 02/28/17 15:29 Heparin Sodium (Porcine) (Heparin Sq 5000 Unit/0.5ml) 5,000 unit Q12 SQ 01/31/17 21:00 03/02/17 20:59 02/06/17 07:44 5,000 UNIT Brimonidine/ Timolol (Combigan Oph Soln) 1 drops BID OPR 02/01/17 09:00 03/03/17 08:59 02/06/17 07:42 1 DROPS Tramadol HCl (Ultram Tab) 25 mg Q6H PRN PO 02/05/17 11:45 03/07/17 11:44 Insulin Glargine (Lantus Solostar Pen) 15 units DAILY SC 02/06/17 09:00 03/08/17 08:59 Future Hold 02/06/17 07:54 15 UNITS
[2017-02-06 21:24] VITALS: BP 143/77; PULSE 72; TEMP 36.6; O2SAT 95
[2017-02-07 00:33] VITALS: BP 133/71; PULSE 63; TEMP 36.5; O2SAT 96
[2017-02-07] MEDS: INSULIN ASPART 100 UNITS/ML 3 ML PEN SC SCH ×3 (06:30→17:20)
[2017-02-07] MEDS: CLOBETASOL PROPIONATE 0.05% OINT 15 GM TUBE EXT SCH (07:44)
[2017-02-07] MEDS: ASPIRIN 81 MG ECTAB PO SCH (07:44)
[2017-02-07] MEDS: METOPROLOL TARTRATE 25 MG TAB PO SCH (07:44)
[2017-02-07] MEDS: FINASTERIDE 5 MG TAB PO SCH (07:44)
[2017-02-07] MEDS: BRIMONIDINE TARTRATE TIMOLOL M OPR SCH (07:44)
[2017-02-07] MEDS: PANTOprazole SOD 40 MG TAB PO SCH (07:44)
[2017-02-07] MEDS: GABAPENTIN 600 MG TAB PO SCH (07:45)
[2017-02-07] MEDS: RANITIDINE HCL 150 MG TAB PO SCH (07:45)
[2017-02-07] MEDS: SERTRALINE HCL 50 MG TAB PO SCH (07:45)
[2017-02-07] MEDS: INSULIN GLARGINE SOLOSTAR 100 UNITS/ML 3 ML PEN SC SCH (07:49)
[2017-02-07] MEDS: HEPARIN SOD 5000 UNIT/0.5 ML CARP SQ SCH (07:50)
[2017-02-07 08:02] VITALS: BP 152/87; PULSE 68; TEMP 36.8; O2SAT 97
--- NOTE | 2017-02-07 11:33 | Pharmacy Progress Note ---
Pharmacy Glycemic Short Note 2 Date of Service Feb 07, 2017. OUTPATIENT ANTIDIABETIC REGIMEN: * Lantus 40 units SQ daily + Humalog 10 units with breakfast, 8 units with lunch and supper ASSESSMENT: * Mr Dagoberto Castillo is an 81 y/o M admitted with pneumonia and fall. Please see note from 02/06/17 for background information. * Yesterday, the patient received a total of 16 units (15 units of basal insulin ) and blood sugars ranged from 82-95 until the evening when the blood sugar was 184 mg/dL. On 02/05/17, the patient had a low blood sugar in the evening and his fasting blood sugar was 95 mg/dL. Subsequently, the basal insulin was decreased by half. Since the fasting blood sugar today was 165 mg/dL, Lantus 15 units was continued. Expect this to increase back towards 20-25 units daily. * For post-prandial blood sugars, they remained relatively stable yesterday secondary to excessive basal insulin. Left just a correction factor available until today. Added back a carbohydrate ratio for lunch and tightened goal range. Expect parameters will need tightened more as the days progress. PLAN FOR INPATIENT GLYCEMIC CONTROL: * Basal insulin * Lantus 15 units SQ in the morning + 5 at lunch then increased to Lantus 20 units starting tomorrow * Bolus insulin * NovoLog per scale ACHS or Q6hrs while NPO * Goal Range: Low 110 mg/dL - High 140 mg/dL * Correction Factor: 35 mg/dL/unit * Nutritional / Prandial insulin per carb ratio of 1 unit per 12 grams CHO consumed PLAN FOR DISCHARGE: * please see note from 01/30/17
[2017-02-07] MEDS ORDERED: INSULIN GLARGINE SOLOSTAR 100 UNITS/ML 3 ML PEN SC ONE (12:00)
[2017-02-07 15:31] VITALS: BP 122/74; PULSE 67; TEMP 36.6; O2SAT 94
[2017-02-07] MEDS ORDERED: TRAM-453 PO (15:58)
[2017-02-07] MEDS ORDERED: INSDGIPEN SC (15:58)
--- NOTE | 2017-02-07 16:02 | Discharge Instructions ---
Discharge Instructions Date of Service Feb 07, 2017. Admission Reason for Admission: FALL Discharge Discharge Diagnosis / Problem: s/p fall, metabolic encephalopathy 2/2 pneumonia Discharge Goals Goal(s): Prevent Disease Progression Activity Recommendations Activity Limitations: per Instructions/Follow-up section . Instructions / Follow-Up Instructions / Follow-Up Please take all medications as instructed. It is recommended that you follow-up with your primary care physician within one week of discharge from [facility] for follow-up from this hospitalization. You will need a repeat chest xray in 4-6 weeks to ensure complete resolution of your pneumonia. It was a pleasure taking care of you! Call if you have any questions or problems. You can reach a [facility] hospitalist on duty at [facility] 24 hours a day by calling [phone]. Take care of yourself. Carmella Eubanks DO [facility] Hospitalist Current Hospital Diet Patient's current hospital diet: Diabetes Type 2 Diet, AHA Diet (Heart Healthy) Discharge Diet Recommended Diet: AHA Diet (Heart Healthy), Diabetes Type 2 Diet Procedures Procedures Performed: None. Pending Studies Studies pending at discharge: yes List of pending studies: PReliminary blood cultures are negative, however, final reading is pending. Laboratory Results Hemoglobin A1c Test 01/30/17 05:50 Range/Units Estimated Average Glucose 203 mg/dl Hemoglobin A1c 8.7 H 4.5-5.6 % Medical Emergencies . Who to Call and When: Medical Emergencies: If at any time you feel your situation is an emergency, please call 911 immediately. . Non-Emergent Contact Non-Emergency issues call your: Primary Care Provider . . "Provider Documentation" section prepared by Carmella Eubanks. . VTE Core Measure Inpt VTE Proph given/why not?: Unfractionated heparin SQ
--- NOTE | 2017-02-07 16:06 | Discharge Summary ---
Discharge Summary Date of Service Feb 07, 2017. Discharge Summary Admission Date: Jan 29, 2017 at 10:30 Discharge Date: Feb 07, 2017 Discharge Disposition: Rehab Principal Diagnosis: Dementia Left 4th rib fracture s/p mechanical fall Pneumonia Metabolic encephalopathy 2/2 underlying pneumonia-resolved. CAD HTN CKD III DMII Chronic DVT Anemia Procedures: TTE: * Ejection Fraction = 65-70%. * There is mild concentric left ventricular hypertrophy. * Aortic valve sclerosis mild, without significant aortic valvular stenosis. * There is mild mitral annular calcification. * Grade I diastolic dysfunction, (abnormal relaxation pattern). Vaccinations: None. Consultations: None. Pending Studies/Follow-Up: see instructions below. Medication Reconciliation New Medications: Insulin Glargine (Lantus Solostar) 100 Unit/Ml Inj 20 UNITS SC HS for 7 Days, #1 PEN Tramadol Hcl (Ultram) 50 Mg Tab 1 TAB PO Q6H PRN for Pain for 7 Days, #20 TAB Continued Medications: Aspirin (Aspirin Ec) 81 Mg Tab 81 MG PO DAILY Aspirin Enteric Coated (Ecotrin Or Generic *) 81 Mg Ectab 81 MG PO DAILY, 0 Refills Brimonidine Tartrate-Timolol M (Combigan) 1 Cinthia Cinthia 1 DROP OP BID Clobetasol Propionate (Temovate) 0.05 % Oin 1 APPLN TOP BID, 1 Refill Dorzolamide/Timolol Oph (Cosopt Oph *) Soln 1 DROP OPR BID Fenofibrate (Tricor) 160 Mg Tab 160 MG PO DAILY, 0 Refills TAKE WITH A MEAL Finasteride (Proscar) 5 Mg Tab 5 MG PO DAILY, TAB Furosemide (Lasix) 40 Mg Tab 40 MG PO DAILY, TAB Gabapentin (Neurontin) 300 Mg Cap 600 MG PO BID, CAP Insulin Lispro (Human) (Humalog Kwikpen) 100 Unit/Ml Inj 10 UNITS SQ DAILYBB Insulin Lispro (Human) (Humalog Kwikpen) 100 Unit/Ml Inj 8 UNITS SQ BIDM LUNCH AND SUPPER Metoprolol Tartrate (Lopressor) (Lopressor) 25 Mg Tab 12.5 MG PO BID, TAB Nitroglycerin (Nitrostat) 0.4 Mg Tab 0.4 MG UT PRN, 0 Refills 1 TABLET EVERY 5 MINUTESAS NEEDED WITH CHEST PAIN UP TO 3 DOSES IN 15MIN Nitroglycerin (Nitrostat) 0.4 Mg Sub 0.4 MG UT PRN, BTL Omeprazole (Prilosec) 20 Mg Capcr 20 MG PO DAILY, CAP Ranitidine Hcl (Zantac) 150 Mg Tab 150 MG PO BID, TAB Rosuvastatin Calcium (Crestor *) 20 Mg Tab 20 MG PO HS, 0 Refills Sertraline (Zoloft) 25 Mg Tab 25 MG PO DAILY, TAB Terazosin (Hytrin) 5 Mg Cap 5 MG PO HS, CAP Triamcinolone Acet (Aristocort 0.1%) 90 Appln/30 Gm Cr 1 APPLN TOP BID [Glucagon Emergency] () 1 KIT IM UD Discontinued Medications: Ciprofloxacin (Cipro *) 500 Mg Tab 500 MG PO Q12@10,22 for 2 Days, 0 Refills Insulin Glargine (Lantus) 100 Unit/Ml Inj 40 UNITS SC QAM, VIAL Admission Information HPI (per Admitting provider): 81 year old male with history of CAD, DM 2 on Insulin, DM Retinopathy/Glaucoma, Hypertension, Memory Loss and other problems noted below presenting with a fall. Patient follows with Dr. Mosley for PCP and [facility]. History obtained mostly from patient, using slurry tank operator via [employer]. Later on supplemented by interviewing patient's nephew Negro over the phone. Patient apparently has very poor vision and should not be walking outside alone as per nephew. This morning patient states he went out of the house to go somewhere "in the town". The nephew mentions patient must have been confused this morning and is wondering if one of his medications is making the patient confused. Patient apparently was walking down a few steps when he lost his balance and fell on the floor. He was to weak to get up, was found on the ground, without shoes. Hence was brought to the ED. Patient's Ct head negative for acute process. CXR shows bibasilar opacities: pneumonia vs. atelectasis WBC 15k. He was given Vanco + Cefepime at the ER. On exam, patient was not in distress, appears comfortable. Main report is left sided chest wall pain, left upper arm pain and left leg pain , worse with movement. Denies dyspnea, nausea, palpitations, dizziness. Denies other symptoms. States he was feeling fine prior to his fall. No other symptoms. Physical Exam (per Admitting): General Appearance: WD/WN, no apparent distress Head: normocephalic, atraumatic Eyes: normal inspection, PERRL, EOMI, sclerae normal ENT: normal ENT inspection, hearing grossly normal, TMs normal, pharynx normal Neck: supple, no adenopathy, thyroid normal, no JVD, trachea midline Respiratory/Chest: chest non-tender, lungs clear, normal breath sounds, no respiratory distress, no accessory muscle use Cardiovascular: regular rate, rhythm, no gallop, no JVD, no murmur, normal peripheral pulses Abdomen/GI: normal bowel sounds, non tender, soft, no organomegaly Back: normal inspection, no CVA tenderness Extremities/Musculoskelatal: + pertinent finding ((+) grade 1 lower leg edema) Neurologic/Psych: no motor/sensory deficits, alert, normal mood/affect, normal reflexes, oriented x 3, + pertinent finding ((+) poor vision- counting fingers only) Skin: normal color, warm/dry, no rash Lymphatic: no adenopathy Hospital Course 81 yo M presented to the hospital s/p mechanical fall at home. [place]awk conference interpreter was used to obtain all information from patient today. He reports some persistent chest and shoulder pain that is worse between his shoulder blades as a result of the fall. He is tolerating PO without issue. He is ambulating with some assistance. He otherwise denies any SOB, fevers, chills, abdominal pain or any other symptoms today. 1. Dementia 2. Left 4th rib fracture s/p mechanical fall-cont analgesics PRN, cont incentive spirometry 3. Pneumonia-Completed a course of doxycycline. Pt is not coughing, denies fevers, chills or other symptoms at this time. Oxygenating on room air. Will require a CXR as outpatient in 4-6 weeks to ensure complete resolution. 4. Metabolic encephalopathy 2/2 underlying pneumonia-resolved. CT head revealed no acute events. 5. CAD: stable, cardiac marker this admission have been negative. Cont medical management with ASA and metoprolol. 6. HTN: controlled, cont current management. 7. CKD III-creatinine is at baseline with resolution of JENNIFER. Lasix is being held. 8. DMII-A1C 8.7. Pharmacy consulted for glycemic management. Cont ISS/ glargine. 9. Chronic DVT-POA, no treatment indicated at this time. 10. Anemia-likely multifactorial etiology including ACD and blood loss from daily phlebotomy. Baseline is around 11.5/35. No acute bleeding or indication for transfusion at this time. Monitor. DVT proph: heparin Full Code Dispo-to SNF once we are able to find a place with 17/09 Mohawk conference interpreter. Pt lives in [facility] in [place]. CM working the issue with referrals in place. DO Mingo Pichardo Total time spent on discharge = 60 minutes This includes examination of the patient, discharge planning, medication reconciliation, and communication with other providers. Discharge Instructions [facility] [address] [place] [address] Discharge Medical Patient Name: Nelson Hooper Unit Number: [id number] Date of : 1935 Patient Status: Admitted Inpatient Attending Doctor: Carmella Eubanks DO DI: Medical v4 Discharge Instructions Date of Service Feb 07, 2017. Admission Reason for Admission: FALL Discharge Discharge Diagnosis / Problem: s/p fall, metabolic encephalopathy 2/2 pneumonia Discharge Goals Goal(s): Prevent Disease Progression Activity Recommendations Activity Limitations: per Instructions/Follow-up section . Instructions / Follow-Up Instructions / Follow-Up Please take all medications as instructed. It is recommended that you follow-up with your primary care physician within one week of discharge from [facility] for follow-up from this hospitalization. You will need a repeat chest xray in 4-6 weeks to ensure complete resolution of your pneumonia. It was a pleasure taking care of you! Call if you have any questions or problems. You can reach a [facility] hospitalist on duty at [facility] 24 hours a day by calling [phone]. Take care of yourself. DO Evan Pichardo Romeist Current Hospital Diet Patient's current hospital diet: Diabetes Type 2 Diet, AHA Diet (Heart Healthy) Discharge Diet Recommended Diet: AHA Diet (Heart Healthy), Diabetes Type 2 Diet Procedures Procedures Performed: None. Pending Studies Studies pending at discharge: yes List of pending studies: PReliminary blood cultures are negative, however, final reading is pending. Laboratory Results Hemoglobin A1c Test 01/30/17 05:50 Range/Units Estimated Average Glucose 203 mg/dl Hemoglobin A1c 8.7 H 4.5-5.6 % Medical Emergencies . Who to Call and When: Medical Emergencies: If at any time you feel your situation is an emergency, please call 911 immediately. . Non-Emergent Contact Non-Emergency issues call your: Primary Care Provider . . "Provider Documentation" section prepared by Carmella Eubanks. . VTE Core Measure Inpt VTE Proph given/why not?: Unfractionated heparin SQ Additional Copies To Manjeet Mosley III, M.D.
[2017-02-07 16:26] VITALS: BP 122/74; PULSE 67; TEMP 36.6; O2SAT 94
[2017-02-08] MEDS ORDERED: INSULIN GLARGINE SOLOSTAR 100 UNITS/ML 3 ML PEN SC SCH (09:00)
== END 2017-02-07 19:43 | DRG 193 ==
LOC: C.EDB 08:00 → EDBD 08:00 → C.2E 10:30 → MERGE 10:30 → ENRESERV 10:52 → EDBEDREQ 02-01 19:33 → ENRESERV 02-01 19:39 → C.MS2W 02-01 22:20
PROVIDERS: ADMIT Internal Medicine; ATTEND Hospitalist
DX: J18.9 Pneumonia, unspecified organism (principal); G93.41 Metabolic encephalopathy; S22.32XA Fracture of one rib, left side, initial encounter for closed fracture; N17.9 Acute kidney failure, unspecified; I82.511 Chronic embolism and thrombosis of right femoral vein; S80.211A Abrasion, right knee, initial encounter; S80.212A Abrasion, left knee, initial encounter; S00.81XA Abrasion of other part of head, initial encounter; M25.512 Pain in left shoulder; H54.7 Unspecified visual loss; E11.65 Type 2 diabetes mellitus with hyperglycemia; F03.90 Unspecified dementia, unspecified severity, without behavioral disturbance, psychotic disturbance, mood disturbance, and anxiety; N18.3 Chronic kidney disease, stage 3 (moderate); E11.319 Type 2 diabetes mellitus with unspecified diabetic retinopathy without macular edema; H40.9 Unspecified glaucoma; E11.22 Type 2 diabetes mellitus with diabetic chronic kidney disease; E11.40 Type 2 diabetes mellitus with diabetic neuropathy, unspecified; I13.10 Hypertensive heart and chronic kidney disease without heart failure, with stage 1 through stage 4 chronic kidney disease, or unspecified chronic kidney disease; D50.0 Iron deficiency anemia secondary to blood loss (chronic); D63.8 Anemia in other chronic diseases classified elsewhere; I25.10 Atherosclerotic heart disease of native coronary artery without angina pectoris; Z79.899 Other long term (current) drug therapy; Z79.4 Long term (current) use of insulin; Z79.82 Long term (current) use of aspirin; Z83.3 Family history of diabetes mellitus; Z82.49 Family history of ischemic heart disease and other diseases of the circulatory system; W10.9XXA Fall (on) (from) unspecified stairs and steps, initial encounter; Y93.01 Activity, walking, marching and hiking; Y92.039 Unspecified place in apartment as the place of occurrence of the external cause; Y99.8 Other external cause status

== ENCOUNTER → 2017-04-23 | Outpatient (CLI) | payer OTHER ==
[~2017-04-23] MED LIST changes: +ASPI81TA28 PO; +BRIM0.2S OP; +CLOB1OIN2 TOP; -CPR500 PO; +FINA5TAB PO; +FRS/40 PO; -HYT/2 PO; +INSU100I2 SQ; -ISOS60TA25 PO; +NITR0.4S UT; +OMEP20CA59 PO; -OXYC1TAB3 PO; -PRLSR20 PO; +RANI150T3 PO; +TERA5CAP PO; +TRMCR130WC TOP
--- NOTE | 2017-04-23 12:26 | DIAGNOSTIC IMAGING REPORT ---
VIDEO SWALLOW HISTORY: DYSPHAGIA UNSPECIFIED TYPE TECHNIQUE: Video fluoroscopic evaluation of swallowing was performed in the AP and lateral projections by the speech pathology staff. The patient is fed nectar-thick and thin liquid barium, a barium coated wafer, and barium pudding. FLUOROSCOPY TIME: 2.2 minutes. NUMBER OF FLUOROSCOPY IMAGES: 0 COMPARISON STUDY: None. FINDINGS: With swallowing thin liquid barium, there was penetration but no evidence of aspiration. There is no penetration or aspiration when swallowing nectar thick liquids. There is no aspiration or penetration when swallowing pudding or cracker with paste. IMPRESSION: 1. Episode of penetration when swallowing thin liquids. No evidence of aspiration. 2. Please see the speech pathologist report for detailed findings and recommendations. Electronically signed by: Jose Manuel Mcguire M.D. 04/23/2017 12:25 PM Dictated Date/Time: 04/23/2017 12:23 PM
--- NOTE | 2017-04-23 13:58 | SWALLOWING EVALUATION ---
HISTORY: This 81 year old man was referred for a video swallow study at [facility] in order to rule out aspiration and identify the safest consistencies for optimal oral intake. The patient's son was present for the procedure, as the patient speaks very limited Mozambican and the son served as a parcel post officer. Family report the patient has not had any recent pneumonia and has not noted much coughing with meals. During his most recent hospitalization in January 2017, his CXR was suspicious for aspiration. PMH is significant for CAD, DM2, diabetic retinopathy/glaucoma, HTN, memory loss, and falls. Current diet is regular soft. PROCEDURE: The patient was seen in the Radiology Department of [facility] for the VFSS. Cursory examination of the oral cavity revealed the patient to have front lower dentition only in fair condition. The patient was seated upright in a wheelchair and was viewed in both the Anterior-Posterior (A-P) and Lateral planes. Volitional phonation exercises completed in the A-P plane revealed bilateral vocal fold movement. Vocal intensity was wnl. In the lateral plane, the patient was given the following boluses: 1 tsp. thin liquid barium x 2, single swallow thin liquid barium self-presented from a cup, sequential swallows of thin liquid barium self-presented from a straw, 1 tsp. nectar-thick liquid barium, single swallow nectar-thick liquid barium self-presented from a cup, 1 tsp. barium pudding, and 1 club cracker coated in barium pudding. The patient was then repositioned into the A-P plane and given the following boluses: 1 tsp. nectar thick barium and 1 tsp. barium pudding. RESULTS: Oral Stage: Lip closure was adequate. The patient was unable to maintain a cohesive liquid bolus in the oral cavity, with escape to the floor of the mouth. Mastication was slow and prolonged. Lingual motion for bolus transport was also noted to be slow. There was retention lining the tongue and palate after the initial swallow. The initiation of the pharyngeal swallow occurred when the bolus head reached the pyriforms. Pharyngeal Stage: Soft palate elevation was complete. Laryngeal elevation revealed partial superior movement of the thyroid cartilage and partial approximation of the arytenoids to the epiglottic base. Anterior hyoid excursion was partially reduced and epiglottic deflection was complete. Laryngeal vestibular closure was in-complete as evidenced by a narrow column of contrast being located in the vestibule at the height of the follow. The pharyngeal stripping wave was present and complete. Pharyngeal contraction was complete. There was complete distention and duration of the opening to the pharyngoesophageal segment (PES). Tongue base retraction was partially reduced with a narrow column of contrast located between the tongue base and pharyngeal wall during the swallow. There was trace retention located along the tongue base, in the valleculae, and pyriforms after the swallow. There was evidence of laryngeal penetration of thin liquids. There was no aspiration identified for this study. Esophageal stage: There was complete esophageal clearance. SUMMARY/RECOMMENDATIONS: This patient presents with mild gerson-pharyngeal dysphagia. The following is recommended: 1. Regular soft diet and thin liquids. 2. Aspiration precautions. Straws OK. Fully upright for meals and for 30 minutes after meals. A summary of the results and recommendations was discussed with the patient and family immediately after the study with verbal understanding. Thank you for referral of this patient. Please contact me at if any additional information is needed.
== END | disposition home or self-care (01) ==
LOC: C.RAD 10:49
PROVIDERS: ATTEND Family Medicine
DX: R13.10 Dysphagia, unspecified (principal)

== ENCOUNTER 2024-01-26 10:31 | Inpatient (IN) ==
--- OUTSIDE RECORDS SUMMARY | 2024-01-26 10:37 | External Medical Summary | Summary of Care ---
Author Name Unknown Organization [facility] Address [address] [place] [address] Phone [phone] Care Team Providers Care Travel Services Professional Name Role Phone Dimitri EMERY MD, Manjeet Adkins Primary Care Provider [phone] Reason for Visit * Reason Onset Date Comments Fax 09/19/2023 Encounter Details Date Type Department Care Team (Late st Contact Info) Description 09/19/2023 Telephone Family Practice [facility] [address] [place] [address] Manjeet Mosley III, MD [address] [place] [address] Fax Allergies Active Allergy Reactions Criticality Noted Date Comments Metformin Hydrochloride 11/14/2004 GI SE Salicylates 03/10/2002 documented as of this encounter (statuses as of 01/16/2024) Medications ONETOUCH DELICA LANCING DEV MISCIndications :DM type 2, goal A1C 7-8 Use to test blood sugar 3 times daily 1 Device 0 01/15/20 12 Active ONETOUCH DELICA LANCETS FINE MISCIndications :DM type 2, goal A1C below 8.0 test blood sugar four times daily as directed; dx 250.00 100 Each 11 04/02/19 15 Active ONETOUCH ULTRA BLUE STRPIndications :Diabetes mellitus, type II ([facility]) Use up to four times a day as directed Dx 250.00 Insulin Dependent Sliding Scale 100 Strip 11 05/15/19 15 Active clobetasol propionate (TEMOVATE) 0.05 % ointmentIndicat ions:Dermatitis Apply topically to affected area 2 times a day. To affected area for up to two weeks. 30 g 1 09/12/19 16 Active BD Pen Needle Short U/F 31G X 8 MM (Insulin Pen Needle)Indicati ons:Type 2 diabetes mellitus with hemoglobin A1c goal of less than 8.0% ([facility]) Use with insulins - 4 times a day. DX e11.9 400 Each 3 09/14/19 22 Active Triamcinolone Acetonide 0.1 % External Cream (Aristocort) Apply topically to affected area 2 times a day . To affected area. 60 g 5 09/14/19 22 Active Nitroglycerin 0.4 MG Sublingual Tablet Sublingual (Nitrostat)Vivienne cations:Chest pain 1 tablet ever 5 min as needed with chest pain up to 3 doses in 15 minutes 25 Tablet 11 09/14/19 22 Active Aspirin Low Dose 81 MG Oral Tablet Delayed Release (aspirin enteric coated)Indicati ons:Chest pain TAKE ONE TABLET BY MOUTH EVERY DAY 30 Tablet 3 05/12/19 23 Active Diclofenac Sodium 1 % External Gel (Voltaren) Apply topically to affected area 3 times a day. Apply to SHOULDER 100 g 8 04/05/19 23 Active Brimonidine Tartrate-Timolo l 0.2-0.5 % Ophthalmic Solution (Combigan)Indic ations:Stable angina ([facility]),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[facility]),Other specified glaucoma one drop to both eyes twice daily 10 mL 3 10/03/19 23 Active Insulin Lispro (1 Unit Dial) 100 UNIT/ML Subcutaneous Solution Pen-injector (HumaLOG KwikPen)Indicat ions:Type 2 diabetes mellitus with hemoglobin A1c goal of less than 8.0% ([facility]) inject 12 units under the skin before breakfast, 10 units before lunch nad 13 units before supper 45 mL 1 12/19/19 23 Active Vitamin D High Potency 25 MCG (1000 UT) Oral Capsule (Cholecalcifero l) TAKE 1 TABLET BY MOUTH EVERY OTHER DAY 30 Capsule 3 05/13/19 24 Active FreeStyle Sheree 2 SensorIndicatio ns:Type 2 diabetes mellitus with hemoglobin A1c goal of less than 7.5% ([facility]) Use as directed. Change every 14 days. 3 Each 06/06/19 24 Active Incontinence Brief Large As directed 18 Each 06/07/19 24 Active FreeStyle Sheree 2 [place] Device Use as directed. 1 Each 2 06/07/19 24 Active Terazosin HCl 2 MG Oral CapsuleIndicati ons:Edema, unspecified type TAKE ONE CAPSULE AT BEDTIME 90 Capsule 1 07/04/19 24 Active Gabapentin 300 MG Oral Capsule (Neurontin) TAKE TWO CAPSULES BY MOUTH TWICE DAILY 360 Capsule 3 08/27/19 24 Active Donepezil HCl 10 MG Oral Tablet (Aricept) TAKE ONE TABLET BY MOUTH EVERY DAY 90 Tablet 3 08/27/19 24 Active Rosuvastatin Calcium 20 MG Oral Tablet (Crestor)Indica tions:Dyslipide [place], goal LDL below 100 TAKE ONE TABLET BY MOUTH EVERY DAY 90 Tablet 3 08/27/19 24 Active Omeprazole 20 MG Oral Capsule Delayed Release (PriLOSEC) TAKE ONE CAPSULE BY MOUTH EVERY DAY 90 Capsule 3 08/27/19 24 Active guaiFENesin ER 600 MG Oral Tablet Extended Release 12 Hour (Mucinex)Indica tions:Bronchiti s, complicated Take 1 Tablet by mouth 2 times a day as needed for Congestion. Take with plenty of water. Do not cut, crush or chew 40 Tablet 09/12/19 24 Active Additional Information Patient not taking.Reported on 11/04/2023 Furosemide 40 MG Oral Tablet (Lasix)Indicati ons:Edema, unspecified type TAKE 1 TABLET BY MOUTH ON SATURDAY, SATURDAY AND SATURDAY (MAY TAKE 1 DAILY FOR 3 DAYS IF NEEDEED FOR SWELLING) 90 Tablet 3 10/02/19 23 2023 Discontinued Famotidine 20 MG Oral Tablet (Pepcid) TAKE ONE TABLET BY MOUTH TWICE DAILY 180 Tablet 3 10/26/19 23 2023 Discontinued Benzonatate 100 MG Oral Capsule (Tessalon Perles) Take 1 Capsule by mouth 3 times a day as needed for Cough. Do not cut, crush, or chew. 50 Capsule 1 02/20/20 23 2023 Discontinued(R efill) Insulin Glargine Solostar 100 UNIT/ML Subcutaneous Solution Pen-injector (Lantus SoloStar)Indica tions:Type 2 diabetes mellitus with hemoglobin A1c goal of less than 8.0% (HCC) Inject 30 Units under the skin daily. 30 mL 1 05/07/19 24 2023 Discontinued Sertraline HCl 50 MG Oral Tablet (Zoloft) TAKE 1/2 TABLET EVERY DAY 45 Tablet 1 05/13/19 24 2023 Discontinued Gabapentin 100 MG Oral Capsule (Neurontin) TAKE 2 CAPSULES IN THE EVENING 180 Capsule 1 05/13/19 24 2023 Discontinued Metoprolol Tartrate 25 MG Oral Tablet (Lopressor)Vivienne cations:Stable angina (HCC) TAKE 1/2 TABLET TWICE DAILY 90 Tablet 1 05/13/19 24 2023 Discontinued Finasteride 5 MG Oral Tablet (Proscar)Indica tions:BPH without obstruction/low er urinary tract symptoms TAKE ONE TABLET EVERY DAY 90 Tablet 1 05/13/19 24 2023 Discontinued Cefuroxime Axetil 500 MG Oral Tablet (Ceftin)Indicat ions:Bronchitis , complicated,Hyp ertrophic toenail,Celluli tis of great toe of right foot Take 1 Tablet by mouth 2 times a day. 14 Tablet 09/12/19 24 2023 Discontinued(M edication List Clean Up) documented as of this encounter (statuses as of 01/16/2024) Active Problems Problem Noted Date Diagnosed Date Type 2 diabetes mellitus wit h stage 3b chronic kidney disease, with long-term current use of insulin 06/14/2023 Inavailability of community resources 11/27/2022 Food insecurity 07/02/2022 Overview: Per [facility] Protocol Diabetic polyneuropathy asso ciated with diabetes mellitus due to underlying condition 06/05/2021 Primary open angle glaucoma (POAG) of both eyes, severe stage 02/21/2021 Vascular dementia without behavioral disturbance 03/02/2019 Gastroesophageal reflux disease without esophagi tis 03/02/2019 Hypertensive kidney disease with CKD stage III 0 03/24/2018 Diabetes mellitus with background retinopathy Macular degeneration, dry 09/04/2016 Type 2 diabetes mellitus wit h stage 3 chronic kidney disease, with long-term current use of insulin 09/04/2016 Essential tremor 04/18/2016 Essential hypertension with goal blood pressure less than 140/90 03/05/2016 Type 2 diabetes mellitus wit h hemoglobin A1c goal of less than 8.0% 11/19/2013 Overview (06/23/2015): ICD-10 update of inactive term Stable angina 09/20/2009 DYSLIPIDEMIA, GOAL LDL BELOW 100 02/08/2009 Overview (02/08/2009): Per Lipid Taxonomy. Urinary frequency 11/24/2007 Other specified glaucoma 10/05/2004 Diabetic neuropathy 02/28/2004 documented as of this encounter (statuses as of 01/16/2024) Resolved Problems Problem Noted Date Diagnosed Date Resolved Date Stage 3a chronic kidney disease 06/14/2023 06/14/2023 Stage 3b chronic kidney disease 06/05/2021 08/09/2022 Type 2 diabetes mellitus wit h stage 3b chronic kidney disease, with long-term current use of insulin 08/23/2020 09/08/2020 Stage 3b chronic kidney disease 08/23/2020 10/18/2020 Gastroesophageal reflux disease 01/26/2019 10/18/2020 CKD (chronic kidney disease) stage 3, GFR 30-59 ml/min 09/01/2018 10/09/2018 Parkinson's disease 07/02/2018 07/03/19 Decubitus ulcer of buttock, stage 2 10/24/2017 07/02/2018 Dementia without behavioral disturbance 10/24/2017 06/14/2023 Memory loss 04/18/2016 10/24/2017 HTN, goal below 150/90 01/24/201603/05 HTN, goal below 140/90 01/06/201501/23 HTN, goal below 130/80 06/02/201302/09 Seborrheic dermatitis 06/16/20122017 Overview (11/26/2016): ICD-10 update of inactive term Kidney disease, chronic, sta ge III (GFR 30-59 ml/min) 07/16/2011 09/04/2016 Overview (07/19/2011): Per CKD protocol #1 Type 2 diabetes mellitus wit h hemoglobin A1c goal of 7.0%-8.0% 02/07/2011 11/19/2013 Overview (06/23/2015): ICD-10 update of inactive term Type 2 diabetes mellitus wit h hemoglobin A1c goal of less than 7.0% 12/09/2008 02/07/2011 Overview (06/21/2015): Modified per Diabetes protocol #14. ICD-10 update of inactive term ACTIVE CASE MANAGEMENT-Flaco Roberts RN [phone]. 05/05/2008 12/12/2009 DIAB RENAL MANIF ADULT 09/17/200707/02 Overview (09/17/2007): Added per DM w/ renal complications protocol #4 DM type 2, not at goal 07/18/200512/09 Overview (12/09/2008): Modified per Diabetes protocol #14. ADVANCE DIRECTIVE INFORMATION 10/05/2004 12/30/2023 Overview (10/05/2004): No, Advance Directive brochure given to patient. DM type 1 causing eye disease 10/05/2004 11/19/2013 Dyslipidemia, goal to be determined 02/28/2004 02/08/2009 Overview (02/08/2009): Per Lipid Taxonomy. Type 1 diabetes mellitus wit h hemoglobin A1c goal of less than 7.0% 03/10/2002 07/18/2005 Overview (06/27/2015): ICD-10 update of inactive term Essential and other specified forms of tremor 03/10/19 03 10/18/2020 documented as of this encounter (statuses as of 01/16/2024) Immunizations Name Administration Dates Next Due COVID-19 mRNA, LNP-s, No Pre serve, 2-Dose Series ([employer]) 10/26/2020,10/05/2020 COVID-19, MRNA-LNP, PF, 30 M CG/0.3 mL, 12 YRS AND ABOVE, IM ([facility]) 01/30/2023 Covid-19, Mrna, Lnp-s, Pf, B ivalent, 30 Mcg, IM, 12 yrs and above (Pfizer) 03/01/2022 Pneumococcal Conjugate Vacc, 13 Valent (Prevnar) 05/06/2014 Pneumococcal Polysaccharide PPV23 (Pneumovax) 12/28/2004 Season Influenza, Quad, PF, Adjuvanted, 65+ Yrs, IM (FLUAD) 11/05/2019 Seasonal Influenza Vac., MDV , IM, 0.5 mL (Fluzone) 11/19/2013,01/02/2013,11/27/2011,01/01,12/01/2009,03/07/2009,01/07/2008 ,12/09/2006,12/12/2005,12/28/2004 Seasonal Influenza, PF, 6 M & above, IM , (FluLaval or Fluzone) 02/20/2018,04/09/2017 Seasonal Influenza, Quadriva lent Hd (Fluzone Hd) 11/27/2022,01/03/2022,01/25/2021 Seasonal Influenza, Quadriva lent, No Preserve, IM 11/07/2015,12/06/2014 Seasonal Influenza, Trivalen t, Adjuvanted, 65+ YRS, PF, (Fluad) 01/26/2019 TD, Preservative Free 08/02/2008 Varicella Zoster Vaccine (Adult) 04/21/2012 Zoster Vaccine Recombinant (Shingrix) 04/17/2019 documented as of this encounter Social History Tobacco Use Types Packs/Day Years Used Date Smoking Tobacco: Never Smokeless Tobacco: Never Alcohol Use Standard Drinks/Week Comments No 0 (1 standard drink = 0.6 oz pur e alcohol) PHQ-2 Answer Date Recorded PHQ Adult Total Score 0 07/03/2023 Hunger Vital Sign Answer Date Recorded Within the past 12 months, y ou worried that your food would run out before you got the money to buy more. Sometimes true Within the past 12 months, t he food you bought just didn't last and you didn't have money to get more. Never true 09/2023 Childcare Answer Date Recorded Do you feel overwhelmed with taking care of a child, family member or friend? No 07/03/2023 Does your family need help f inding childcare? (Household - for ages 0-17 years) Not on file 07/03/2023 Clothing Answer Date Recorded Have you been unable to get clothing when it was really needed? No 07/03/2023 Is your family able to get c lothes or diapers when needed? (Household - for ages 0-17 years) Not on file 07/03/2023 Personal Safety Answer Date Recorded Do you feel unsafe or have concerns for your saf ety? No 07/03/2023 Do you have concerns for you r family's safety? (Household - for ages 0-17 years) Not on file 07/03/2023 Utilities Answer Date Recorded Do you have trouble paying y our heating, water, or electric bill? No 07/03/2023 Is your family able to pay t he heat, water, or electric bill? (Household - for ages 0-17 years) Not on file 07/03/2023 Does your family have access to good internet? (Household - for ages 0-17 years) Not on file 07/03/2023 Employment Status Answer Date Recorded Are you unemployed or without regular income? No 07/03/2023 Does the household have a [facility] source of income? (Household - for ages 0-17 years) Not on file 07/03/2023 Social Connections Answer Date Recorded How often do you feel lonely or isolated from th ose around you? Never 07/03/2023 Financial Resource Strain Answer Date R ecorded Do you have any trouble payi ng for your medications, or do you think you might in the future? No 07/03/2023 Does your family have troubl e paying for medicine? (Household - for ages 0-17 years) Not on file 07/03/2023 Transportation Needs Answer Date Record ed READ ONLY Do you have troubl e getting a ride to medical visits or work? Never True 07/03/2023 Does your family have a hard time getting a ride to doctors visits? (Household - for ages 0-17 years) Not on file 07/03/2023 Has lack of transportation k ept you from medical appointments, meetings, work, or from getting things needed for daily living? Check all that apply. (Adult - for ages 18 years and over) Not on file 07/03/2023 Do you (or your family) have trouble finding or paying for a ride (transportation)? (Household - for ages 0-17 years) Not on file 07/03/2023 Housing Stability Answer Date Recorded Do you currently live in a s helter or have no steady place to sleep at night? No 07/03/2023 READ ONLY Do you think you a re at risk of becoming homeless? No 07/03/2023 Does your family worry about paying for your home or becoming homeless? (Household - for ages 0-17 years) Not on file 0 07/03/2023 Are you homeless or worried that you might be in the future? (Adult - for ages 18 years and over) Not on file Are you (or your family) dany eless or worried that you might be in the future? (Household - for ages 0-17 years) Not on file Food Insecurity Answer Date Recorded Do you need food for this week? No 07/03/2023 Are you able to get enough f ood for your family? (Household - for ages 0-17 years) Not on file 07/03/2023 Does your family need food t his week? (Household - for ages 0-17 years) Not on file 07/03/2023 Do you always have enough fo od for your family? (Household - for ages 0-17 years) Not on file 07/03/2023 Sex and Gender Information Value Date Recorded Sex Assigned at Male 06/26/2021 2:21 PM EDT Legal Sex Male 5:48 AM EST Gender Identity Male 06/26/2021 2:21 PM EDT Sexual Orientation Straight 06/26/2021 2: 21 PM EDT Occupation Industry Job Start Date Job End Date retired Not on file Not on file Not on file documented as of this encounter Miscellaneous Notes * Telephone Encounter - Nichelle Dinaa LPN - 01/16/2024 11:50 AM EST Signed form was scanned in to chart. I have printed it and refaxed it at this time. Confirmation received. * Telephone Encounter - Redman-Sadi Iniguez OSA - 01/13/2024 8:39 AM EST [facility] calling in to request the document for the patient's incontinence supplies. The original form was sent on 01/01. Please advise * Addendum Note - Sobeida Orourke LPN - 11/25/2023 12:42 PM EDTAddended by: SOBEIDA OROURKE on: 11/25/2023 12:42 PM Modules accepted: Orders * Telephone Encounter - Sobeida Orourke LPN - 11/25/2023 12:40 PM EDT Placed in Dr. Mosley's black bin at nurse station to sign. * Telephone Encounter - Sobeida Orourke LPN - 11/25/2023 12:29 PM EDT New DME initated, will fax to company. * Telephone Encounter - Manjeet Mosley III, MD - 11/25/2023 8:10 AM EDT Update? Form? * Telephone Encounter - Nichelle Diana LPN - 11/06/2023 11:24 AM EDT In a document scan dated 09/18/23 [facility] notified us that they are no longer providing patient with his supplies. Message sent to patient to find out if he needs incontinence supplies andwhich company he uses for those items. * Telephone Encounter - Yadi Tirado DINA - 11/01/2023 8:26 AM EDT [facility] calling back on this, They got the physician order back but they need step 4 where the change was made to be initialed and dated. Please advise * Telephone Encounter - Annamarie Barry, DINA - 10/18/2023 8:58 AM EDT I will look into this? * Telephone Encounter - Halima Mcgarry OSA - 10/18/2023 8:46 AM EDT Received a call asking if fax was received by office. Name/Company sending fax: [facility] Checking on the status of request incomplete forms faxed back on 09/19/23; Please have provider initial and date the changes that were made on the form * Telephone Encounter - Nasim Gonzales OSA - 10/03/2023 11:43 AM EDT Vivian from [facility] calling checking on the status of this request. Vivian advised that the original order request from 08/27/23 & 09/09/23 did not have the provider's NPI number &the form needed to be initialed and dated. If you can please review and fax the request back to [phone]. Of note, there were two faxes sent on behalf of this patient - one was for the initial request, the second was for an increased supply order - the reference # for the request is [id number]. * Telephone Encounter - Tegan Banks RN - 09/25/2023 1:18 PM EDT On counter for Dr. Mosley to sign. * Telephone Encounter - Saida Gonzalez LPN - 09/25/2023 1:03 PM EDT Has anyone seen this fax? * Telephone Encounter - Glory Cheema PHARM Tech - 09/19/2023 9:09 AM EDT [facility] called stating they will be faxing over request for incontinence supplies. ThanksGlory Steward/[facility]wardess [facility] 09/19/2023,9:10 AM documented in this encounter Plan of Treatment Upcoming Encounters Date Type Department Care Team (Late st Contact Info) Description 01/21/2024 8:40 AM EST Office Visit [place] [facility] [address] [place] [address] Manjeet Mosley III, MD [address] [facility] [place] [id number] 01/31/2024 6:10 PM EST Pharmacy Pharmacy, [address] [place] [id number] [place] [address] 07/06/2024 8:30 AM EDT Nurse Only Ancillary [address] [place] [address] Gauri, Nurse [address] [place] [address] Health Maintenance Due Date Last Done Comments DTap/Tdap Vaccines (1 - Tdap) 08/03/2008 08/02/2008 Zoster Vaccines (3 of 3) 06/12/2019 04/17/2019, 03/29 COVID-19 Vaccine ( season) 2023 01/30/2023, 03/01/2022, 10/26/2020, Additional history exists Influenza Vaccine (FLU shot) (#1) 2023 11/27/2022, 01/03/2022, 01/25/2021, Additional history exists HbA1c 04/08/2024 10/07/2023, 05/26, 01/30/2023, Additional history exists Diabetic Foot Exam 06/03/2024 06/04/2023 (D one elsewhere), 06/28/2022, 02/06/2021, Additional history exists Adult Wellness Visit 07/02/2024 07/03/2023, 06/28/2022, 06/26/2021 Depression Screening 07/02/2024 07/03/2023, 07/03/19 24 Diabetic Eye Exam 07/31/2024 08/01/2023, , 06/29/2021, Additional history exists CKD HGB USE SMARTSET 38179 10/06/202410/06, 06/14/2023, 01/30/2023, Additional history exists CKD PHOS USE SMARTSET 46316 10/06/202409/25, 01/30/2023, 01/03/2022, Additional history exists Albumin/Creatinine Ratio 10/13/2024 024, 09/18/2021, 08/23/2020, Additional history exists Pneumococcal Vaccine: 65+ Years Completed 05/06/2014, 12/28/2004 HPV (Gardasil) Vaccine Aged Out No lo nger eligible based on patient's age to complete this topic Hepatitis B Vaccine Aged Out No longe r eligible based on patient's age to complete this topic MENINGOCOCCAL (MENACTRA/MENVEO) Aged Out No longer eligible based on patient's age to complete this topic documented as of this encounter Medical Devices Not on filedocumented as of this encounter Visit Diagnoses Diagnosis Mixed incontinence- Primary Mixed incontinence urge and stress (male)(female) documented in this encounter Care Teams Travel Services Professional Relationship Specialty Start Date End Date Manjeet Mosley III, MD [address] [place] [address] PCP - General 11/18/06 documented as of this encounter
--- OUTSIDE RECORDS SUMMARY | 2024-01-26 10:37 | External Medical Summary | Summary of Care ---
Author Name Unknown Organization [facility] Address [address] [place] [address] Phone [phone] Care Team Providers Care Automation Technician Name Role Phone Dimitri EMERY MD, Manjeet Adkins Primary Care Provider [phone] Reason for Visit * Reason Onset Date Comments Other 11/29/2023 Encounter Details Date Type Department Care Team (Late st Contact Info) Description 11/29/2023 Telephone General Internal Medicine [facility] [address] [place] [address] Jesús De Los Santos [address] [place] [address] Other Allergies Active Allergy Reactions Criticality Noted Date Comments Metformin Hydrochloride 11/14/2004 GI SE Salicylates 03/10/2002 documented as of this encounter (statuses as of 12/17/2023) Medications Medication Sig Dispensed Refills Start Date End Date Status ONETOUCH DELICA LANCING DEV MISCIndications:DM type 2, goal A1C 7-8 Use to test blood sugar 3 times daily 1 Device 0 01/15/2012 Active ONETOUCH DELICA LANCETS FINE MISCIndications:DM type 2, goal A1C below 8.0 test blood sugar four times daily as directed; dx 250.00 100 Each 11 04/02/2014 Active ONETOUCH ULTRA BLUE STRPIndications:Marylin betes mellitus, type II ([facility]) Use up to four times a day as directed Dx 250.00 Insulin Dependent Sliding Scale 100 Strip 11 05/14/2014 Active clobetasol propionate (TEMOVATE) 0.05 % ointmentIndications :Dermatitis Apply topically to affected area 2 times a day. To affected area for up to two weeks. 30 g 1 09/12/2015 Active BD Pen Needle Short U/F 31G X 8 MM (Insulin Pen Needle)Indications: Type 2 diabetes mellitus with hemoglobin A1c goal of less than 8.0% ([facility]) Use with insulins - 4 times a day. DX e11.9 400 Each 3 09/13/2021 Active Triamcinolone Acetonide 0.1 % External Cream (Aristocort) Apply topically to affected area 2 times a day . To affected area. 60 g 5 09/13/2021 Active Nitroglycerin 0.4 MG Sublingual Tablet Sublingual (Nitrostat)Indicati ons:Chest pain 1 tablet ever 5 min as needed with chest pain up to 3 doses in 15 minutes 25 Tablet 11 09/13/2021 Active Aspirin Low Dose 81 MG Oral Tablet Delayed Release (aspirin enteric coated)Indications: Chest pain TAKE ONE TABLET BY MOUTH EVERY DAY 30 Tablet 3 05/11/2022 Active Diclofenac Sodium 1 % External Gel (Voltaren) Apply topically to affected area 3 times a day. Apply to SHOULDER 100 g 8 04/05/2022 Active Brimonidine Tartrate-Timolol 0.2-0.5 % Ophthalmic Solution (Combigan)Indicatio ns:Stable angina ([facility]),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[facility]),Other specified glaucoma one drop to both eyes twice daily 10 mL 3 2022 Active Insulin Lispro (1 Unit Dial) 100 UNIT/ML Subcutaneous Solution Pen-injector (HumaLOG KwikPen)Indications :Type 2 diabetes mellitus with hemoglobin A1c goal of less than 8.0% ([facility]) inject 12 units under the skin before breakfast, 10 units before lunch nad 13 units before supper 45 mL 1 12/18/2022 Active Vitamin D High Potency 25 MCG (1000 UT) Oral Capsule (Cholecalciferol) TAKE 1 TABLET BY MOUTH EVERY OTHER DAY 30 Capsule 3 05/13/2023 Active FreeStyle Sheree 2 SensorIndications:T ype 2 diabetes mellitus with hemoglobin A1c goal of less than 7.5% ([facility]) Use as directed. Change every 14 days. 3 Each 11 06/06/2023 Active Incontinence Brief Large As directed 18 Each 06/07/2023 Active FreeStyle Sheree 2 [place] Device Use as directed. 1 Each 2 06/07/2023 Active Terazosin HCl 2 MG Oral CapsuleIndications: Edema, unspecified type TAKE ONE CAPSULE AT BEDTIME 90 Capsule 1 07/04/2023 Active Gabapentin 300 MG Oral Capsule (Neurontin) TAKE TWO CAPSULES BY MOUTH TWICE DAILY 360 Capsule 3 08/27/2023 Active Donepezil HCl 10 MG Oral Tablet (Aricept) TAKE ONE TABLET BY MOUTH EVERY DAY 90 Tablet 3 08/27/2023 Active Rosuvastatin Calcium 20 MG Oral Tablet (Crestor)Indication s:Dyslipidemia, goal LDL below 100 TAKE ONE TABLET BY MOUTH EVERY DAY 90 Tablet 3 08/27/2023 Active Omeprazole 20 MG Oral Capsule Delayed Release (PriLOSEC) TAKE ONE CAPSULE BY MOUTH EVERY DAY 90 Capsule 3 08/27/2023 Active guaiFENesin ER 600 MG Oral Tablet Extended Release 12 Hour (Mucinex)Indication s:Bronchitis, complicated Take 1 Tablet by mouth 2 times a day as needed for Congestion. Take with plenty of water. Do not cut, crush or chew 40 Tablet 09/12/2023 Active Additional Information Patient not taking.Reported on 11/04/2023 Famotidine 20 MG Oral Tablet (Pepcid) TAKE ONE TABLET TWICE DAILY 180 Tablet 3 10/01/2023 Active Furosemide 40 MG Oral Tablet (Lasix)Indications: Edema, unspecified type TAKE 1 TABLET BY MOUTH ON SATURDAY, SATURDAY AND SATURDAY (MAY TAKE 1 DAILY FOR 3 DAYS IF NEEDED FOR SWELLING) 90 Tablet 1 10/25/2023 Active Sertraline HCl 50 MG Oral Tablet (Zoloft) TAKE 1/2 TABLET EVERY DAY 45 Tablet 3 10/25/2023 Active Gabapentin 100 MG Oral Capsule (Neurontin) TAKE 2 CAPSULES IN THE EVENING 180 Capsule 1 10/29/2023 Active Metoprolol Tartrate 25 MG Oral Tablet (Lopressor)Indicati ons:Stable angina ([facility]) TAKE 1/2 TABLET TWICE DAILY 90 Tablet 3 10/25/2023 Active Finasteride 5 MG Oral Tablet (Proscar)Indication s:BPH without obstruction/lower urinary tract symptoms TAKE ONE TABLET EVERY DAY 90 Tablet 3 10/25/2023 Active Lantus SoloStar 100 UNIT/ML Subcutaneous Solution Pen-injector (Insulin Glargine Solostar)Indication s:Type 2 diabetes mellitus with hemoglobin A1c goal of less than 8.0% ([facility]) Inject 30 Units under the skin daily. 30 mL 1 11/18/2023 Active Benzonatate 100 MG Oral Capsule (Tessalvilma Dunbarbernardino)Indications: Acute cough Take 1 Capsule by mouth 3 times a day as needed for Cough. Do not cut, crush, or chew. 50 Capsule 1 11/22/2023 Active documented as of this encounter (statuses as of 12/17/2023) Active Problems Problem Noted Date Diagnosed Date Type 2 diabetes mellitus wit h stage 3b chronic kidney disease, with long-term current use of insulin 06/14/2023 Inavailability of community resources 11/27/2022 Food insecurity 07/02/2022 Overview: Per [facility] Protocol Diabetic polyneuropathy asso ciated with [...] A1c goal of less than 8.0% 11/19/2013 Overview: ICD-10 update of inactive term Stable angina 09/20/2009 DYSLIPIDEMIA, GOAL LDL BELOW 100 02/08/2009 Overview: Per Lipid Taxonomy. Urinary frequency 11/24/2007 ADVANCE DIRECTIVE INFORMATION 10/05/2004 Overview: No, Advance Directive brochure given to patient. Other specified glaucoma 10/05/2004 Diabetic neuropathy 02/28/2004 documented as of this encounter (statuses as of 12/17/2023) Resolved Problems Problem Noted Date Diagnosed Date [...] goal below 130/80 06/02/201302/09 Seborrheic dermatitis 06/16/20122017 Overview: ICD-10 update of inactive term Kidney disease, chronic, sta ge III (GFR 30-59 ml/min) 07/16/2011 09/04/2016 Overview: Per CKD protocol #1 Type 2 diabetes mellitus wit h hemoglobin A1c goal of 7.0%-8.0% 02/07/2011 11/19/2013 Overview: ICD-10 update of inactive term Type 2 diabetes mellitus wit h hemoglobin A1c goal of less than 7.0% 12/09/2008 02/07/2011 Overview: Modified per Diabetes protocol #14. ICD-10 update of inactive term ACTIVE CASE MANAGEMENT-Flaco Roberts RN [phone]. 05/05/2008 12/12/2009 DIAB RENAL MANIF ADULT 09/17/200707/02 Overview: Added per DM w/ renal complications protocol #4 DM type 2, not at goal 07/18/200512/09 Overview: Modified per Diabetes protocol #14. DM type 1 causing eye disease 10/05/2004 11/19/2013 Dyslipidemia, goal to be determined 02/28/2004 02/08/2009 Overview: Per Lipid Taxonomy. Type 1 diabetes mellitus wit h hemoglobin A1c goal of less than 7.0% 03/10/2002 07/18/2005 Overview: ICD-10 update of inactive term Essential and other specified forms of tremor 03/10/19 03 10/18/2020 documented as of this encounter (statuses as of 12/17/2023) Immunizations Name Administration Dates Next Due COVID-19 mRNA, LNP-s, No Pre serve, 2-Dose Series (One Codex) 10/26/2020,10/05/2020 COVID-19, MRNA-LNP, 23-24, P F, 30 MCG/0.3 mL, 12 YRS AND ABOVE, IM (PFIZER-Comirnaty) 01/30/2023 Covid-19, Mrna, Lnp-s, Pf, B ivalent, 30 Mcg, IM, 12 yrs and above (Pfizer) 03/01/2022 Pneumococcal Conjugate Vacc, 13 Valent (Prevnar) 05/06/2014 Season Influenza, Quad, PF, Adjuvanted, 65+ Yrs, IM (FLUAD) 11/05/2019 Seasonal Influenza Vac., MDV , IM, 0.5 mL (Fluzone) 11/19/2013,01/02/2013,11/27/2011,2010,12/01/2009,03/07/2009,01/07/2008,1 ,12/12/2005 Seasonal Influenza, PF, 6 M & above, [...] No 07/03/2023 Does the household have a re gular source of income? (Household - for ages [...] Assigned at Male 06/26/2021 2:21 PM EDT Gender Identity Male 06/26/2021 2:21 PM EDT Sexual Orientation Straight 06/26/2021 2: 21 PM EDT Job Start Date Occupation Industry Not on file Not on file Not on file documented as of this encounter Miscellaneous Notes * Telephone Encounter - Angélica Harrison CMA - 12/17/2023 9:44 AM EDT Faxed received in regards to this, signed by provider and faxed. * Telephone Encounter - Adalberto Bedolla frit mixer and burner - 11/29/2023 3:36 PM EDT Altheos has requested a call back from DR eason about script request for pt supplies. Please call them back at [phone] . Thank You, Adalberto Bedolla [facility] Line Tester II [facility] 11/29/2023, 3:37 PM documented in this encounter Plan of Treatment Upcoming Encounters Date Type Department Care Team (Late st Contact Info) Description 12/31/2023 6:10 PM EST Pharmacy Pharmacy, [address] [place] [id number] [place] [address] 01/21/2024 8:40 AM EST Office Visit Family Practice [facility] [place] [address] [facility] [place] [address] Manjeet Mosley III, MD [address] [facility] [place] [address] 07/06/2024 8:30 AM EDT Nurse Only Ancillary [place] [place] [address] [place], Nurse Annual Wellness [address] [place] [address] [place] [address] Health Maintenance Due Date Last Done Comments DTap/Tdap Vaccines (1 - Tdap) 08/03/2008 08/02/2008 Zoster Vaccines (3 of 3) 06/12/2019 04/17/2019, 03/29 COVID-19 Vaccine (5 - season) 2023 01/30/2023, 03/01/2022, 10/26/2020, Additional history [...] Additional history exists CKD HGB USE SMARTSET 75647 10/06/202410/06, 06/14/2023, 01/30/2023, Additional history exists CKD PHOS USE SMARTSET 19926 10/06/202409/25, 01/30/2023, 01/03/2022, Additional history exists Albumin/Creatinine [...] Not on filedocumented as of this encounter Care Teams Automation Technician Relationship Specialty Start Date End Date Manjeet Mosley III, MD [address] [place] [address] PCP - General 11/18/06 documented as of this encounter
--- OUTSIDE RECORDS SUMMARY | 2024-01-26 10:37 | External Medical Summary | Summary of Care ---
Author Name Unknown Organization [facility] Address [address] [place] [address] Phone [phone] Care Team Providers Care Masonry Supervisor Name Role Phone Dimitri EMERY MD, Brian Adkins Primary Care Provider [phone] Reason for Visit * Reason Onset Date Comments Medication Refill 01/11/2024 Encounter Details Date Type Department Care Team (Late st Contact Info) Description 01/11/2024 Refill Family Medicine [address] [id number] Maureen Ocampo [address] [place] [phone] Acute cough Allergies Active Allergy Reactions Criticality Noted Date Comments Metformin Hydrochloride 11/14/2004 GI SE Salicylates 03/10/2002 documented as of this encounter (statuses as of 01/13/2024) Medications ONETOUCH DELICA LANCING DEV MISCIndications: DM type 2, goal A1C 7-8 Use to test blood sugar 3 times daily 1 Device 0 01/15/20 12 Active ONETOUCH DELICA LANCETS FINE MISCIndications: DM type 2, goal A1C below 8.0 test blood sugar four times daily as directed; dx 250.00 100 Each 11 04/02/19 15 Active ONETOUCH ULTRA BLUE STRPIndications: Diabetes mellitus, type II ([facility]) Use up to four times a day as directed Dx 250.00 Insulin Dependent Sliding Scale 100 Strip 11 05/15/19 15 Active clobetasol propionate (TEMOVATE) 0.05 % ointmentIndicati ons:Dermatitis Apply topically to affected area 2 times a day. To affected area for up to two weeks. 30 g 1 09/12/19 16 Active BD Pen Needle Short U/F 31G X 8 MM (Insulin Pen Needle)Indicatio ns:Type 2 diabetes mellitus with hemoglobin A1c goal of less than 8.0% ([facility]) Use with insulins - 4 times a day. DX e11.9 400 Each 09/14/19 22 Active Triamcinolone Acetonide 0.1 % External Cream (Aristocort) Apply topically to affected area 2 times a day . To affected area. 60 g 5 09/14/19 22 Active Nitroglycerin 0.4 MG Sublingual Tablet Sublingual (Nitrostat)Indic ations:Chest pain 1 tablet ever 5 min as needed with chest pain up to 3 doses in 15 minutes 25 Tablet 11 09/14/19 22 Active Aspirin Low Dose 81 MG Oral Tablet Delayed Release (aspirin enteric coated)Indicatio ns:Chest pain TAKE ONE TABLET BY MOUTH EVERY DAY 30 Tablet 3 05/12/19 23 Active Diclofenac Sodium 1 % External Gel (Voltaren) Apply topically to affected area 3 times a day. Apply to SHOULDER 100 g 8 04/05/19 23 Active Brimonidine Tartrate-Timolol 0.2-0.5 % Ophthalmic Solution (Combigan)Indica tions:Stable angina ([facility]),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[facility]),Other specified glaucoma one drop to both eyes twice daily 10 mL 3 10/03/19 23 Active Insulin Lispro (1 Unit Dial) 100 UNIT/ML Subcutaneous Solution Pen-injector (HumaLOG KwikPen)Indicati ons:Type 2 diabetes mellitus with hemoglobin A1c goal of less than 8.0% ([facility]) inject 12 units under the skin before breakfast, 10 units before lunch nad 13 units before supper 45 mL 1 12/19/19 23 Active Vitamin D High Potency 25 MCG (1000 UT) Oral Capsule (Cholecalciferol ) TAKE 1 TABLET BY MOUTH EVERY OTHER DAY 30 Capsule 3 05/13/19 24 Active FreeStyle Sheree 2 SensorIndication s:Type 2 diabetes mellitus with hemoglobin A1c goal of less than 7.5% ([facility]) Use as directed. Change every 14 days. 3 Each 06/06/19 24 Active Incontinence Brief Large As directed 18 Each 06/07/19 24 Active FreeStyle Sheree 2 [place] Device Use as directed. 1 Each 2 06/07/19 24 Active Terazosin HCl 2 MG Oral CapsuleIndicatio ns:Edema, unspecified type TAKE ONE CAPSULE AT BEDTIME 90 Capsule 1 07/04/19 24 Active Gabapentin 300 MG Oral Capsule (Neurontin) TAKE TWO CAPSULES BY MOUTH TWICE DAILY 360 Capsule 3 08/27/19 24 Active Donepezil HCl 10 MG Oral Tablet (Aricept) TAKE ONE TABLET BY MOUTH EVERY DAY 90 Tablet 3 08/27/19 24 Active Rosuvastatin Calcium 20 MG Oral Tablet (Crestor)Indicat ions:Dyslipidemi a, goal LDL below 100 TAKE ONE TABLET BY MOUTH EVERY DAY 90 Tablet 3 08/27/19 24 Active Omeprazole 20 MG Oral Capsule Delayed Release (PriLOSEC) TAKE ONE CAPSULE BY MOUTH EVERY DAY 90 Capsule 3 08/27/19 24 Active guaiFENesin ER 600 MG Oral Tablet Extended Release 12 Hour (Mucinex)Indicat ions:Bronchitis, complicated Take 1 Tablet by mouth 2 times a day as needed for Congestion. Take with plenty of water. Do not cut, crush or chew 40 Tablet 09/12/19 24 Active Additional Information Patient not taking.Reported on 11/04/2023 Famotidine 20 MG Oral Tablet (Pepcid) TAKE ONE TABLET TWICE DAILY 180 Tablet 3 10/01/19 24 Active Furosemide 40 MG Oral Tablet (Lasix)Indicatio ns:Edema, unspecified type TAKE 1 TABLET BY MOUTH ON SATURDAY, SATURDAY AND SATURDAY (MAY TAKE 1 DAILY FOR 3 DAYS IF NEEDED FOR SWELLING) 90 Tablet 1 10/25/19 24 Active Sertraline HCl 50 MG Oral Tablet (Zoloft) TAKE 1/2 TABLET EVERY DAY 45 Tablet 3 10/25/19 24 Active Gabapentin 100 MG Oral Capsule (Neurontin) TAKE 2 CAPSULES IN THE EVENING 180 Capsule 1 10/29/19 24 Active Metoprolol Tartrate 25 MG Oral Tablet (Lopressor)Indic ations:Stable angina ([facility]) TAKE 1/2 TABLET TWICE DAILY 90 Tablet 3 10/25/19 24 Active Finasteride 5 MG Oral Tablet (Proscar)Indicat ions:BPH without obstruction/lowe r urinary tract symptoms TAKE ONE TABLET EVERY DAY 90 Tablet 3 10/25/19 24 Active Lantus SoloStar 100 UNIT/ML Subcutaneous Solution Pen-injector (Insulin Glargine Solostar)Indicat ions:Type 2 diabetes mellitus with hemoglobin A1c goal of less than 8.0% ([facility]) Inject 30 Units under the skin daily. 30 mL 1 11/18/19 24 Active Benzonatate 100 MG Oral Capsule (Tessalon Perles)Indicatio ns:Acute cough Take 1 Capsule by mouth 3 times a day as needed for Cough. Do not cut, crush, or chew. 50 Capsule 1 01/13/20 24 Active Benzonatate 100 MG Oral Capsule (Tessalon Perles)Indicatio ns:Acute cough Take 1 Capsule by mouth 3 times a day as needed for Cough. Do not cut, crush, or chew. 50 Capsule 1 11/22/19 24 024 Discontin ued(Refil l) documented as of this encounter (statuses as of 01/13/2024) Active Problems Problem Noted Date Diagnosed Date [...] as of this encounter (statuses as of 01/13/2024) Resolved Problems Problem Noted Date Diagnosed Date [...] inactive term ACTIVE CASE MANAGEMENT-Flaco Roberts RN [phone]. 05/05/2008 12/12/2009 DIAB RENAL MANIF ADULT 09/17/200707/02 [...] as of this encounter (statuses as of 01/13/2024) Immunizations Name Administration Dates Next Due COVID-19 mRNA, LNP-s, No Pre serve, 2-Dose Series (Shoes4you) 10/26/2020,10/05/2020 COVID-19, MRNA-LNP, PF, 30 M CG/0.3 mL, 12 YRS AND ABOVE, IM ([facility]) 01/30/2023 Covid-19, Mrna, Lnp-s, Pf, B ivalent, [...] encounter Miscellaneous Notes * Telephone Encounter - Brian Savage III, MD - 01/13/2024 10:44 AM ESTSigned Prescriptions: Disp Refills Benzonatate 100 MG Oral Capsule (Tessalon *50 Cap*1 Sig: Take 1 Capsule by mouth 3 times a day as needed for Cough. Do not cut, crush, or chew.Authorizing Provider:BRIAN SAVAGE III * Telephone Encounter - Marquise Dueñas, [facility] - 01/13/2024 10:13 AM EST Pending Prescriptions: Disp Refills Benzonatate 100 MG Oral Capsule (Tessalon *50 Cap*1 Sig: Take 1 Capsule by mouth 3 times a day as needed for Cough. Do not cut, crush, or chew. * Telephone Encounter - Marquise Dueñas, [facility] - 01/13/2024 10:13 AM EST Pending Prescriptions: Disp Refills Benzonatate 100 MG Oral Capsule (Tessalon *50 Cap*1 Sig: Take 1 Capsule by mouth 3 times a day as needed for Cough. Do not cut, crush, or chew. 11/04/2023 (in office), Visit date not found (telemedicine) Visit date not found If no future appointments scheduled, and last appointment is greater than a year ago, please schedule patient for a follow-up appointment Last date the medication was ordered: 11/22/23 Pharmacy: [id number] [address] Is this request for a controlled substance?No Urine Drug Screen:No results found. However, due to the size of the patient record, not all encounters were searched. Please check Results Review for a complete set of results. Patient Phone Numbers Labs: Lab Results Component Value Date/Time CREAT 1.5 (H) 10/07/2023 09:51 AM CREAT 1.6 (H) 11/16/2019 09:46 AM POTASSIUM 4.5 10/07/2023 09:51 AM POTASSIUM 4.7 11/16/2019 09:46 AM TSH 0.87 07/09/2017 10:43 AM LDL 28 07/31/2022 08:47 AM LDL 46 01/26/2019 12:31 PM LDL NOT APPLICABLE 01/26/2019 12:31 PM ALT 36 10/07/2023 09:51 AM ALT 28 04/29/2018 09:59 AM HGBA1C 8.2 (H) 10/07/2023 09:51 AM HGBA1C 8.8 (H) 11/05/2019 12:15 PM documented in this encounter Plan of Treatment Upcoming Encounters Date Type Department Care Team (Late st Contact Info) Description 01/21/2024 8:40 AM EST Office Visit Family Practice [facility] [place] [address] [facility] [place] [address] Brian Savage III, MD [address] [facility] [place] [address] 01/31/2024 6:10 PM EST Pharmacy Pharmacy, [address] [place] [address] [place] [address] 07/06/2024 8:30 AM EDT Nurse Only Ancillary [address] [place] [address] [place], Nurse [address] [place] [address] Health Maintenance Due Date Last Done Comments [...] 06/28/2022, 06/26/2021 Depression Screening 07/02/2024 07/03/2023, 07/03/19 Diabetic Eye Exam 07/31/2024 08/01/2023, , 06/29/2021, Additional history exists CKD HGB USE SMARTSET 67586 10/06/202410/06, 06/14/2023, 01/30/2023, Additional history exists CKD PHOS USE SMARTSET 22062 10/06/202409/25, 01/30/2023, 01/03/2022, Additional history exists Albumin/Creatinine [...] as of this encounter Visit Diagnoses Diagnosis Acute cough documented in this encounter Care Teams Masonry Supervisor Relationship Specialty Start Date End Date Brian Savage III, MD [address] [place] [address] PCP - General 11/18/06 documented as of this encounter
--- OUTSIDE RECORDS SUMMARY | 2024-01-26 10:37 | External Medical Summary | Summary of Care ---
Author Name Unknown Organization [facility] Address [address] [place] [address] Phone [phone] Care Team Providers Care Cardio Clinician Name Role Phone Dimitri EMERY MD, Manjeet Adkins Primary Care Provider [phone] Encounter Details Date Type Department Care Team (Late st Contact Info) Description 09/13/2023 Telephone Family Practice [facility] 200 [facility] [place] [address] Manjeet Mosley III, MD [address] [place] [address] Allergies Active Allergy Reactions Criticality Noted Date Comments Metformin Hydrochloride 11/14/2004 GI SE Salicylates 03/10/2002 documented as of this encounter (statuses as of 12/13/2023) Medications Medication Sig Dispensed Refills Start Date [...] ULTRA BLUE STRPIndications:Marylin betes mellitus, type II (HCC) Use up to four times a day [...] hemoglobin A1c goal of less than 8.0% ([facility]) Use with insulins - 4 [...] 0.2-0.5 % Ophthalmic Solution (Combigan)Indicatio ns:Stable angina ([facility]),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[facility]),Other specified glaucoma one drop to both eyes twice daily 10 mL 3 2022 Active Insulin Lispro (1 Unit Dial) 100 UNIT/ML Subcutaneous Solution Pen-injector (HumaLOG KwikPen)Indications :Type 2 diabetes mellitus with hemoglobin A1c goal of less than 8.0% ([facility]) inject 12 units under the [...] hemoglobin A1c goal of less than 7.5% ([facility]) Use as directed. Change every 14 days. 3 Each 06/06/2023 Active Incontinence Brief Large As directed 18 Each 11 06/07/2023 Active FreeStyle Sheree 2 [place] Device Use as directed. 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 05/05/2008 12/12/2009 DIAB RENAL MANIF ADULT 09/17/200707/02 [...] as of this encounter (statuses as of 12/13/2023) Immunizations Name Administration Dates Next Due COVID-19 mRNA, LNP-s, No Pre serve, 2-Dose Series ([employer]Touch) 10/26/2020,10/05/2020 COVID-19, MRNA-LNP, 23-24, P F, 30 MCG/0.3 mL, 12 YRS AND ABOVE, IM ([employer]-Comirnat) 01/30/2023 Covid-19, Mrna, Lnp-s, Pf, B ivalent, [...] on file documented as of this encounter Plan of Treatment Upcoming Encounters Date Type Department Care Team (Late st Contact Info) Description 12/31/2023 6:10 PM EST Pharmacy Pharmacy, [address] [place] [id number] [place] [address] 01/21/2024 8:40 AM EST [facility] [place] [address] Manjeet Mosley III, MD 200 [facility] [place] [address] 07/06/2024 8:30 AM EDT Nurse Only Ancillary [address] [place] [address] [place], Nurse [address] [place] [address] Health Maintenance Due Date Last Done Comments [...] Additional history exists CKD HGB USE SMARTSET 49780 10/06/202410/06, 06/14/2023, 01/30/2023, Additional history exists CKD PHOS USE SMARTSET 92878 10/06/202409/25, 01/30/2023, 01/03/2022, Additional history exists Albumin/Creatinine [...] filedocumented as of this encounter Care Teams Cardio Clinician Relationship Specialty Start Date End Date Manjeet Mosley III, MD 200 [place] [address] PCP - General 11/18/06 documented as of this encounter
--- OUTSIDE RECORDS SUMMARY | 2024-01-26 10:37 | External Medical Summary | Summary of Care ---
Author Name Unknown Organization [facility] Address [address] [facility] [address] Phone [phone] Care Team Providers Care Toy Painter Name Role Phone Dimitri EMERY MD, Manjeet Adkins Primary Care Provider [phone] Reason for Visit * Reason Comments Dosage Adjustment Via Phone (anticoag Cl inic) Encounter Details Date Type Department Care Team (Late st Contact Info) Description 12/31/2023 6:10 PM [facility] Pharmacy Pharmacy, [address] [place] [address] [place] [address] DM type 2, goal: symptom mgmt ([facility])* Allergies Active Allergy Reactions Criticality Noted Date Comments Metformin Hydrochloride 11/14/2004 GI SE Salicylates 03/10/2002 documented as of this encounter (statuses as of 12/31/2023) Medications Medication Sig Dispensed Refills Start Date End Date Status WeblanceTOUCH DELICA LANCING DEV MISCIndications:DM type 2, goal A1C 7-8 Use to test blood sugar 3 times daily 1 Device 0 01/15/2012 Active ONETOUCH DELICA LANCETS FINE MISCIndications:DM type 2, goal A1C below 8.0 test blood sugar four times daily as directed; dx 250.00 100 Each 11 04/02/2014 Active ONETOUCH ULTRA BLUE STRPIndications:Marylin betes mellitus, type II ([facility]) Use up to four times a day [...] hemoglobin A1c goal of less than 8.0% ([facility]) Use with insulins - 4 times a [...] 0.2-0.5 % Ophthalmic Solution (Combigan)Indicatio ns:Stable angina ([facility]),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[facility]),Other specified glaucoma one drop to both eyes twice daily 10 mL 3 2022 Active Insulin Lispro (1 Unit Dial) 100 UNIT/ML Subcutaneous Solution Pen-injector (HumaLOG KwikPen)Indications :Type 2 diabetes mellitus with hemoglobin A1c goal of less than 8.0% ([facility]) inject 12 units under the skin before breakfast, 10 units before lunch nad 13 units before supper 45 mL 1 12/18/2022 Active Vitamin D High Potency 25 MCG (1000 UT) Oral Capsule (Cholecalciferol) TAKE 1 TABLET BY MOUTH EVERY OTHER DAY 30 Capsule 3 05/13/2023 Active FreeStyle Sheree 2 SensorIndications:T ype 2 diabetes mellitus with hemoglobin A1c goal of less than 7.5% ([facility]) Use as directed. Change every 14 days. 3 Each 06/06/2023 Active Incontinence Brief Large As directed 18 Each 06/07/2023 Active FreeStyle Sheree 2 [place] Device Use as directed. 1 Each 2 [...] hemoglobin A1c goal of less than 8.0% ([facility]) Inject 30 Units under the skin daily. 30 mL 1 11/18/2023 Active Benzonatate 100 MG Oral Capsule (Tessalon Perles)Indications: Acute cough Take 1 Capsule by mouth 3 times a day as needed for Cough. Do not cut, crush, or chew. 50 Capsule 1 11/22/2023 Active documented as of this encounter (statuses as of 12/31/2023) Active Problems Problem Noted Date Diagnosed Date [...] Overview: Per Lipid Taxonomy. Urinary frequency 11/24/2007 Other specified glaucoma 10/05/2004 Diabetic neuropathy 02/28/2004 documented as of this encounter (statuses as of 12/31/2023) Resolved Problems Problem Noted Date Diagnosed Date [...] inactive term ACTIVE CASE MANAGEMENT-Flaco Roberts RN [phone]. 05/05/2008 12/12/2009 DIAB RENAL MANIF ADULT 09/17/200707/02 Overview: Added per DM w/ renal complications protocol #4 DM type 2, not at goal 07/18/200512/09 Overview: Modified per Diabetes protocol #14. ADVANCE DIRECTIVE INFORMATION 10/05/2004 12/30/2023 Overview: No, Advance Directive brochure given to [...] as of this encounter (statuses as of 12/31/2023) Immunizations Name Administration Dates Next Due COVID-19 mRNA, LNP-s, No Pre serve, 2-Dose Series ([employer]) 10/26/2020,10/05/2020 COVID-19, MRNA-LNP, PF, 30 M CG/0.3 mL, 12 YRS AND ABOVE, IM ([employer]-Comirnat) 01/30/2023 Covid-19, Mrna, Lnp-s, Pf, B ivalent, [...] on file documented as of this encounter Progress Notes * Madie Mena CPhT - 12/31/2023 8:13 AM EST Patient Phone Numbers Left message on patients answering machine to schedule MTDM appointment for DM management. [facility] message sent --n Clinic will follow up again in 4 week(s). [Attempt # 3] Thank you, Madie Mena CPhT Installation And Service Technician II [facility] 12/31/2023,8:13 AM documented in this encounter Plan of Treatment Upcoming Encounters Date Type Department Care Team (Late st Contact Info) Description 01/21/2024 8:40 AM EST Office Visit Family Practice [facility] [address] [place] III[place]jeet MD 200 [facility] [place] [address] 01/31/2024 6:10 PM EST Pharmacy Pharmacy, [address] [place] [address] [place] [address] 07/06/2024 8:30 AM EDT Nurse Only Ancillary [address] [place] [address] [place], Nurse [facility] [address] [place] [address] [place] [address] Health Maintenance Due Date Last Done Comments [...] Additional history exists CKD HGB USE SMARTSET 65315 10/06/202410/06, 06/14/2023, 01/30/2023, Additional history exists CKD PHOS USE SMARTSET 38247 10/06/202409/25, 01/30/2023, 01/03/2022, Additional history exists Albumin/Creatinine [...] as of this encounter Visit Diagnoses Diagnosis DM type 2, goal: symptom mgmt (HCC)- Primary Type II or unspecified type diabetes mellitus without mention of complication, not stated as uncontrolled documented in this encounter Care Teams Toy Painter Relationship Specialty Start Date End Date Dimitri EMERY, Manjeet Adkins MD [address] [place] [address] PCP - General 11/18/06 documented as of this encounter
--- OUTSIDE RECORDS SUMMARY | 2024-01-26 10:37 | External Medical Summary | Summary of Care ---
Author Name Unknown Organization [facility] Address [address] [place] [address] Phone [phone] Care Team Providers Care Utility Manager Name Role Phone Dimitri EMERY MD, Manjeet Adkins Primary Care Provider [phone] Reason for Visit * Reason Onset Date Comments Fax 09/19/2023 Encounter Details Date Type Department Care Team (Late st Contact Info) Description 09/19/2023 Telephone Family Practice [facility] 200 [facility] [place] [address] Manjeet Mosley III, MD 200 [place] [address] Fax Allergies Active Allergy Reactions Criticality Noted Date Comments Metformin Hydrochloride 11/14/2004 GI SE Salicylates 03/10/2002 documented as of this encounter (statuses as of 01/13/2024) Medications ONETOUCH DELICA LANCING DEV MISCIndications :DM type 2, goal A1C 7-8 Use to test blood sugar 3 times daily 1 Device 0 01/15/20 12 Active ONETOUCH DELICA LANCETS FINE MISCIndications :DM type 2, goal A1C below 8.0 test blood sugar four times daily as directed; dx 250.00 100 Each 11 04/02/19 15 Active ONETOUCH ULTRA BLUE STRPIndications :Diabetes mellitus, type II ([facility]) Use up to four times [...] hemoglobin A1c goal of less than 8.0% ([facility]) Use with insulins - 4 [...] 0.2-0.5 % Ophthalmic Solution (Combigan)Indic ations:Stable angina ([facility]),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[facility]),Other specified glaucoma one drop to both eyes twice daily 10 mL 3 10/03/19 23 Active Insulin Lispro (1 Unit Dial) 100 UNIT/ML Subcutaneous Solution Pen-injector (HumaLOG KwikPen)Indicat ions:Type 2 diabetes mellitus with hemoglobin A1c goal of less than 8.0% ([facility]) inject 12 units under the [...] hemoglobin A1c goal of less than 7.5% ([facility]) Use as directed. Change every 14 days. 3 Each 06/06/19 24 Active Incontinence Brief Large As directed 18 Each 06/07/19 24 Active FreeStyle Sheree 2 [place] Device Use as directed. 1 Each 2 [...] resources 11/27/2022 Food insecurity 07/02/2022 Overview: Per [facility] Protocol Diabetic polyneuropathy asso ciated with [...] inactive term ACTIVE CASE MANAGEMENT-Flaco Roberts RN [phone]. 05/05/2008 12/12/2009 DIAB RENAL MANIF ADULT 09/17/200707/02 [...] mRNA, LNP-s, No Pre serve, 2-Dose Series ([employer]) 10/26/2020,10/05/2020 COVID-19, MRNA-LNP, PF, 30 M CG/0.3 mL, 12 YRS AND ABOVE, IM ([facility]) 01/30/2023 Covid-19, Mrna, Lnp-s, Pf, B ivalent, [...] No 07/03/2023 Does the household have a [facility] hospitalr source of income? (Household - for [...] encounter Miscellaneous Notes * Telephone Encounter - Sadi Mendez OSA - 01/13/2024 8:39 AM EST Home [...] items. * Telephone Encounter - Yadi Tirado OSA - 11/01/2023 8:26 AM EDT Home care delivered calling back on this, They got the physician order back but they need step 4 where the change was made to be initialed and dated. Please advise * Telephone Encounter - Annamarie [place] OSA - 10/18/2023 8:58 AM EDT I will look into this? * Telephone Encounter - Halima Mcgarry OSA - 10/18/2023 8:46 AM EDT Received a call asking if fax was received by office. Name/Company sending fax: [facility] Delivered Checking on the status of request incomplete forms faxed back on 09/19/23; Please have provider initial and date the changes that were made on the form * Telephone Encounter - Nasim Gonzales OSA - 10/03/2023 11:43 AM EDT Vivian from [facility] Delivered calling checking on the status of this request. Vivian advised that the original order request from 08/27/23 & 09/09/23 did not have the provider's NPI number &the form needed to be initialed and dated. If you can please review and fax the request back to [phone]. Of note, there were two faxes sent on behalf of this patient - one was for the initial request, the second was for an increased supply order - the reference # for the request is [id number]. * Telephone Encounter - Tegan Banks RN [...] faxing over request for incontinence supplies. ThanksGlory Tab Cutter [facility] ([facility] 09/19/2023,9:10 AM documented in this encounter Plan of Treatment Upcoming Encounters Date Type Department Care Team (Late st Contact Info) Description 01/21/2024 8:40 AM EST Office Visit Family [facility] [place] 200 [facility] [place] [address] Manjeet Mosley III, MD 200 [facility] [place] [address] 01/31/2024 6:10 PM EST Pharmacy Pharmacy, [address] [place] [address] [place] [address] 07/06/2024 8:30 AM EDT Nurse Only Ancillary [address] [place] [address] [place]aur[place], Nurse [address] [place] [address] Health Maintenance Due Date Last Done Comments [...] Additional history exists CKD HGB USE SMARTSET 66171 10/06/202410/06, 06/14/2023, 01/30/2023, Additional history exists CKD PHOS USE SMARTSET 41242 10/06/202409/25, 01/30/2023, 01/03/2022, Additional history exists Albumin/Creatinine [...] (male)(female) documented in this encounter Care Teams Utility Manager Relationship Specialty Start Date End Date Manjeet Mosley III, MD 200 [facility] [place] [address] PCP - General 11/18/06 documented as of this encounter
--- OUTSIDE RECORDS SUMMARY | 2024-01-26 10:37 | External Medical Summary | Summary of Care ---
Author Name Unknown Organization [facility] Address [address] [place] [address] Phone [phone] Care Team Providers Care Regulatory Compliance Engineer Name Role Phone Dimitri EMERY MD, Manjeet Adkins Primary Care Provider [phone] Reason for Visit * Reason Onset Date Comments Fax 09/19/2023 Encounter Details Date Type Department Care Team (Late st Contact Info) Description 09/19/2023 Telephone Family Practice [facility] [address] [facility] [place] [address] Manjeet Mosley III, MD 200 [place] [address] Fax Allergies Active Allergy Reactions Criticality Noted [...] ULTRA BLUE STRPIndications :Diabetes mellitus, type II ([facility]) Use up to four times [...] goal of less than 8.0% ([facility]) Use with insulins - 4 [...] 0.2-0.5 % Ophthalmic Solution (Combigan)Indic ations:Stable angina ([facility]),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[facility]),Other specified glaucoma one drop to both eyes twice daily 10 mL 3 10/03/19 23 Active Insulin Lispro (1 Unit Dial) 100 UNIT/ML Subcutaneous Solution Pen-injector (HumaLOG KwikPen)Indicat ions:Type 2 diabetes mellitus with hemoglobin A1c goal of less than 8.0% ([facility]) inject 12 units under the [...] goal of less than 7.5% ([facility]) Use as directed. Change every 14 days. 3 Each 06/06/19 24 Active Incontinence Brief Large As directed 18 Each 06/07/19 24 Active FreeStyle Sheree 2 [place] Device Use as directed. 1 Each 2 [...] resources 11/27/2022 Food insecurity 07/02/2022 Overview: Per [facility] Protocol Diabetic polyneuropathy asso ciated with [...] inactive term ACTIVE CASE MANAGEMENT-Flaco Roberts RN [phone]. 05/05/2008 12/12/2009 DIAB RENAL MANIF ADULT 09/17/200707/02 [...] mRNA, LNP-s, No Pre serve, 2-Dose Series ([employer]) 10/26/2020,10/05/2020 COVID-19, MRNA-LNP, PF, 30 M CG/0.3 mL, 12 YRS AND ABOVE, IM ([facility]) 01/30/2023 Covid-19, Mrna, Lnp-s, Pf, B [...] No 07/03/2023 Does the household have a [facility] source of income? (Household - for [...] Please advise * Addendum Note - Sobeida Ororuke LPN - 11/25/2023 12:42 PM EDTAddended by: [...] was received by office. Name/Company sending fax: [facility] Delivered Checking on the status of request incomplete forms faxed back on 09/19/23; Please have provider initial and date the changes that were made on the form * Telephone Encounter - Nasim Gonzales OSA - 10/03/2023 11:43 AM EDT Vivian from [facility] Delivered calling checking on the status of this request. Vivian advised that the original order request from 08/27/23 & 09/09/23 did not have the provider's NPI number &the form needed to be initialed and dated. If you can please review and fax the request back to [phone]. Of note, there were two faxes sent on behalf of this patient - one was for the initial request, the second was for an increased supply order - the reference # for the request is [id number]. * Telephone Encounter - Tegan Banks RN [...] faxing over request for incontinence supplies. ThanksGlory Hot Dog Vender [facility] 09/19/2023,9:10 AM documented in this encounter Plan of Treatment Upcoming Encounters Date Type Department Care Team (Late st Contact Info) Description 01/21/2024 8:40 AM EST Office Visit Family Practice [facility] [address] [facility] [place] [address] Manjeet Mosley III, MD [address] [facility] [place] [address] 01/31/2024 6:10 PM EST Pharmacy Pharmacy, [address] [place] [address] [place] [address] 07/06/2024 8:30 AM EDT Nurse Only Ancillary [address] [place] [address] [place]i, Nurse [address] [place] [address] Health Maintenance Due Date Last Done Comments [...] Additional history exists CKD HGB USE SMARTSET 68792 10/06/202410/06, 06/14/2023, 01/30/2023, Additional history exists CKD PHOS USE SMARTSET 51609 10/06/202409/25, 01/30/2023, 01/03/2022, Additional history exists Albumin/Creatinine [...] (male)(female) documented in this encounter Care Teams Regulatory Compliance Engineer Relationship Specialty Start Date End Date Manjeet Mosley III, MD [address] [facility] [place] [address] PCP - General 11/18/06 documented as of this encounter
--- OUTSIDE RECORDS SUMMARY | 2024-01-26 10:37 | External Medical Summary | Summary of Care ---
Author Name Unknown Organization [facility] Address [address] [place] [address] Phone [phone] Care Team Providers Care Medical Reimbursement Manager Name Role Phone Dimitri EMERY MD, Brian Adkins Primary Care Provider [phone] Reason for Visit * Reason Comments eRx-Medication Refill Encounter Details Date Type Department Care Team (Late st Contact Info) Description 01/15/2024 Refill Family Practice [facility] [address] [place] [address] Brian Savage III, MD [address] [place] [address] Chronic kidney disease, unspecified CKD stage*; Edema, unspecified type; Anemia, unspecified type; Stage 3a chronic kidney disease (HCC) Allergies Active Allergy Reactions Criticality Noted Date Comments Metformin Hydrochloride 11/14/2004 GI SE Salicylates 03/10/2002 documented as of this encounter (statuses as of 01/17/2024) Medications ONETOUCH DELICA LANCING DEV MISCIndications :DM type 2, goal A1C 7-8 Use to test blood sugar 3 times daily 1 Device 0 01/15/20 12 Active ONETOUCH DELICA LANCETS FINE MISCIndications :DM type 2, goal A1C below 8.0 test blood sugar four times daily as directed; dx 250.00 100 Each 11 04/02/19 15 Active ONETOUCH ULTRA BLUE STRPIndications :Diabetes mellitus, type II (HCC) Use up to [...] A1c goal of less than 8.0% ([facility]) Use with insulins - 4 times a day. DX e11.9 400 Each 09/14/19 22 Active Triamcinolone Acetonide 0.1 % External Cream (Aristocort) Apply topically to affected area 2 times a day . To affected area. 60 g 09/14/19 22 Active Nitroglycerin 0.4 MG Sublingual [...] 0.2-0.5 % Ophthalmic Solution (Combigan)Indic ations:Stable angina ([facility]),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[facility]),Other specified glaucoma one drop to both eyes twice daily 10 mL 3 10/03/19 23 Active Insulin Lispro (1 Unit Dial) 100 UNIT/ML Subcutaneous Solution Pen-injector (HumaLOG KwikPen)Indicat ions:Type 2 diabetes mellitus with hemoglobin A1c goal of less than 8.0% ([facility]) inject 12 units under the skin before breakfast, 10 units before lunch nad 13 units before supper 45 mL 1 12/19/19 23 Active FreeStyle Sheree 2 SensorIndicatio ns:Type 2 diabetes mellitus with hemoglobin A1c goal of less than 7.5% ([facility]) Use as directed. Change every 14 days. 3 Each 06/06/19 24 Active Incontinence Brief Large As directed 18 Each 06/07/19 24 Active FreeStyle Sheree 2 Wellborn Device Use as directed. 1 Each 2 06/07/19 24 Active Gabapentin 300 MG Oral Capsule [...] 24 Active Furosemide 40 MG Oral Tablet (Lasix)Indicati ons:Edema, [...] Active Metoprolol Tartrate 25 MG Oral Tablet (Lopressor)Vivienne cations:Stable angina (HCC) TAKE 1/2 TABLET TWICE DAILY 90 Tablet 3 10/25/19 24 Active Finasteride 5 MG Oral Tablet (Proscar)Indica tions:BPH without obstruction/low er urinary tract symptoms TAKE ONE TABLET EVERY DAY 90 Tablet 3 10/25/19 24 Active Lantus SoloStar 100 UNIT/ML Subcutaneous Solution Pen-injector (Insulin Glargine Solostar)Indica tions:Type 2 diabetes mellitus with hemoglobin A1c goal of less than 8.0% ([facility]) Inject 30 Units under the skin daily. 30 mL 1 11/18/19 24 Active Benzonatate 100 MG Oral Capsule (Tessalon Perlbernardino)Indicati ons:Acute cough Take 1 Capsule by mouth 3 times a day as needed for Cough. Do not cut, crush, or chew. 50 Capsule 1 01/13/20 24 Active Terazosin HCl 2 MG Oral CapsuleIndicati ons:Edema, unspecified type TAKE ONE CAPSULE AT BEDTIME 28 Capsule 5 01/16/20 24 Active Vitamin D High Potency 25 MCG (1000 UT) Oral Capsule (Cholecalcifero l) EVERY OTHER DAY 14 Capsule 5 01/17/20 24 Active Vitamin D High Potency 25 MCG (1000 UT) Oral Capsule (Cholecalcifero l) TAKE 1 TABLET BY MOUTH EVERY OTHER DAY 30 Capsule 3 05/13/19 24 024 Discontinued Terazosin HCl 2 MG Oral CapsuleIndicati ons:Edema, unspecified type TAKE ONE CAPSULE AT BEDTIME 90 Capsule 1 07/04/19 24 024 Discontinued documented as of this encounter (statuses as of 01/17/2024) Active Problems Problem Noted Date Diagnosed Date [...] as of this encounter (statuses as of 01/17/2024) Resolved Problems Problem Noted Date Diagnosed Date [...] inactive term ACTIVE CASE MANAGEMENT-Flaco Roberts RN [phone]. 05/05/2008 12/12/2009 DIAB RENAL MANIF ADULT 09/17/200707/02 [...] as of this encounter (statuses as of 01/17/2024) Immunizations Name Administration Dates Next Due COVID-19 mRNA, LNP-s, No Pre serve, 2-Dose Series (Brain Sentry) 10/26/2020,10/05/2020 COVID-19, MRNA-LNP, PF, 30 M CG/0.3 mL, 12 YRS AND ABOVE, IM [facility] 01/30/2023 Covid-19, Mrna, Lnp-s, Pf, B [...] 07/03/2023 Does the household have a re lar source of income? (Household - for ages [...] Encounter - Brian Savage III, MD - 01/17/2024 8:06 AM ESTSigned Prescriptions: Disp Refills Terazosin HCl 2 MG Oral Capsule 28 Cap*5 Sig: TAKE ONE CAPSULE AT BEDTIMEAuthorizing Provider: BRIAN SAVAGE III User: NELIA HURTADO Vitamin D High Potency 25 MCG (1000 UT) Or*14 Cap*5 Sig: EVERY OTHER DAYAuthorizing Provider: BRIAN SAVAGE III------- * Telephone Encounter - Nelia Hurtado [facility] - 01/16/2024 7:08 PM ESTPending Prescriptions: Disp Refills Vitamin D High Potency 25 MCG (1000 UT) Or*14 Cap*5 Sig: EVERY OTHER DAY Signed Prescriptions: Disp Refills Terazosin HCl 2 MG Oral Capsule 28 Cap*5 Sig: TAKE ONE CAPSULE AT BEDTIME Authorizing Provider: BRIAN SAVAGE III Ordering User: NELIA HURTADO * Telephone Encounter - Nelia Hurtado [facility] - 01/16/2024 7:07 PM EST [facility] is currently not authorized to approve refills for the pended medication(s) per refill protocol. Please approve if appropriate. Pending Prescriptions: Disp Refills Vitamin D High Potency 25 MCG (1000 UT) O*14 Cap*5 Sig: EVERY OTHER DAY Signed Prescriptions: Disp Refills Terazosin HCl 2 MG Oral Capsule 28 Cap*5 Sig: TAKE ONE CAPSULE AT BEDTIME Authorizing Provider: BRIAN SAVAGE III Ordering User: NELIA HURTADO Thank you, Nelia Hurtado [facility] Clinical Pharmacist [facility] ([facility]) 01/16/24 7:07 PM [phone] * Telephone Encounter - Nelia Hurtado RPh - 01/16/2024 7:05 PM EST Did you pend patient's preferred pharmacy and medication before forwarding?yes Pharmacy: [facility], [address] [place] Pending Prescriptions: Disp Refills Vitamin D High Potency 25 MCG (1000 UT) O*28 Cap*0 Sig: EVERY OTHER DAY Signed Prescriptions: Disp Refills Terazosin HCl 2 MG Oral Capsule 28 Cap*5 Sig: TAKE ONE CAPSULE AT BEDTIME Authorizing Provider: BRIAN SAVAGE III Ordering User: NELIA HURTADO Last Visit: 10/07/2023 (in office), Visit date not found (telemedicine) Next Visit: 01/21/2024 If no future appointments scheduled, and last appointment is greater than a year ago, please schedule patient for a follow-up appointment Last date the medication was ordered: 05/13/2023 Is this request for a controlled substance?No [...] Visit Family Practice [facility] [address] [place], [place] [address] Brian Savage III, MD [address] [facility] [address] 01/31/2024 6:10 PM EST Pharmacy Pharmacy, [address] [place] [address] [place] [address] 07/06/2024 8:30 AM EDT Nurse Only Ancillary [address] [place] [address] [place], Nurse [address] [place] [address] Scheduled Orders Name Type Priority Associated Diagnoses Orde r Schedule 25-HYDROXY VITAMIN D Lab Routine Chronic kidney disease, unspecified CKD stage Anemia, unspecified type Stage 3a chronic kidney disease (HCC) Expected: 01/30/2024 (Approximate), Expires: 01/15/2025 Health Maintenance Due Date Last Done Comments [...] Additional history exists CKD HGB USE SMARTSET 42041 10/06/202410/06, 06/14/2023, 01/30/2023, Additional history exists CKD PHOS USE SMARTSET 17291 10/06/202409/25, 01/30/2023, 01/03/2022, Additional history exists Albumin/Creatinine [...] as of this encounter Visit Diagnoses Diagnosis Chronic kidney disease, unspecified CKD stage- Primary Edema, unspecified type Anemia, unspecified type Stage 3a chronic kidney disease (HCC) documented in this encounter Care Teams Medical Reimbursement Manager Relationship Specialty Start Date End Date Brian Savage III, MD [address] [place] [address] PCP - General 11/18/06 documented as of this encounter
--- OUTSIDE RECORDS SUMMARY | 2024-01-26 10:38 | External Medical Summary | Summary of Care ---
Author Name Unknown Organization [facility] Address [address] [place] [address] Phone [phone] Care Team Providers Care Stone Processing Machine Operator Name Role Phone Dimitri EMERY MD, Manjeet Adkins Primary Care Provider [phone] Reason for Visit * Reason Onset Date Comments Fax 09/19/2023 Encounter Details Date Type Department Care Team (Late st Contact Info) Description 09/19/2023 Telephone Family Practice [facility] [address] [facility] [place] [address] Manjeet Mosley III, MD [address] [place] [address] Fax Allergies Active Allergy Reactions Criticality Noted Date Comments Metformin Hydrochloride 11/14/2004 GI SE Salicylates 03/10/2002 documented as of this encounter (statuses as of 11/25/2023) Medications Medication Sig Dispensed Refills Start Date End Date Status ONETOUCH DELICA LANCING DEV MISCIndications: DM type 2, goal A1C 7-8 Use to test blood sugar 3 times daily 1 Device 0 2 Active ONETOUCH DELICA LANCETS FINE MISCIndications: DM type 2, goal A1C below 8.0 test blood sugar four times daily as directed; dx 250.00 100 Each 11 5 Active ONETOUCH ULTRA BLUE STRPIndications: Diabetes mellitus, type II ([facility]) Use up to four times a day as directed Dx 250.00 Insulin Dependent Sliding Scale 100 Strip 11 5 Active clobetasol propionate (TEMOVATE) 0.05 % ointmentIndicati ons:Dermatitis Apply topically to affected area 2 times a day. To affected area for up to two weeks. 30 g 1 6 Active BD Pen Needle Short U/F 31G X 8 MM (Insulin Pen Needle)Indicatio ns:Type 2 diabetes mellitus with hemoglobin A1c goal of less than 8.0% ([facility]) Use with insulins - 4 times a day. DX e11.9 400 Each 3 2 Active Triamcinolone Acetonide 0.1 % External Cream (Aristocort) Apply topically to affected area 2 times a day . To affected area. 60 g 5 2 Active Nitroglycerin 0.4 MG Sublingual Tablet Sublingual (Nitrostat)Indic ations:Chest pain 1 tablet ever 5 min as needed with chest pain up to 3 doses in 15 minutes 25 Tablet 11 2 Active Aspirin Low Dose 81 MG Oral Tablet Delayed Release (aspirin enteric coated)Indicatio ns:Chest pain TAKE ONE TABLET BY MOUTH EVERY DAY 30 Tablet 3 3 Active Diclofenac Sodium 1 % External Gel (Voltaren) Apply topically to affected area 3 times a day. 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[facility]),Other specified glaucoma one drop to both eyes twice daily 10 mL 3 3 Active Insulin Lispro (1 Unit Dial) 100 UNIT/ML Subcutaneous Solution Pen-injector (HumaLOG KwikPen)Indicati ons:Type 2 diabetes mellitus with hemoglobin A1c goal of less than 8.0% ([facility]) inject 12 units under the skin before breakfast, 10 units before lunch nad 13 units before supper 45 mL 1 3 Active Vitamin D High Potency 25 MCG (1000 UT) Oral Capsule (Cholecalciferol ) TAKE 1 TABLET BY MOUTH EVERY OTHER DAY 30 Capsule 3 4 Active FreeStyle Sheree 2 SensorIndication s:Type 2 diabetes mellitus with hemoglobin A1c goal of less than 7.5% ([facility]) Use as directed. Change every 14 days. 3 Each 11 4 Active Incontinence Brief Large As directed 18 Each 4 Active FreeStyle Sheree 2 [place] Device Use as directed. 1 Each 2 4 Active Terazosin HCl 2 MG Oral CapsuleIndicatio ns:Edema, unspecified type TAKE ONE CAPSULE AT BEDTIME 90 Capsule 1 4 Active Gabapentin 300 MG Oral Capsule (Neurontin) TAKE TWO CAPSULES BY MOUTH TWICE DAILY 360 Capsule 3 4 Active Donepezil HCl 10 MG Oral Tablet (Aricept) TAKE ONE TABLET BY MOUTH EVERY DAY 90 Tablet 3 4 Active Rosuvastatin Calcium 20 MG Oral Tablet (Crestor)Indicat ions:Dyslipidemi a, goal LDL below 100 TAKE ONE TABLET BY MOUTH EVERY DAY 90 Tablet 3 4 Active Omeprazole 20 MG Oral Capsule Delayed Release (PriLOSEC) TAKE ONE CAPSULE BY MOUTH EVERY DAY 90 Capsule 3 4 Active guaiFENesin ER 600 MG Oral Tablet Extended Release 12 Hour (Mucinex)Indicat ions:Bronchitis, complicated Take 1 Tablet by mouth 2 times a day as needed for Congestion. Take with plenty of water. Do not cut, crush or chew 40 Tablet 4 Active Additional Information Patient not taking.Reported on 11/04/2023 Furosemide 40 MG Oral Tablet (Lasix)Indicatio ns:Edema, unspecified type TAKE 1 TABLET BY MOUTH ON SATURDAY, SATURDAY AND SATURDAY (MAY TAKE 1 DAILY FOR 3 DAYS IF NEEDEED FOR SWELLING) 90 Tablet 3 3 10/25/19 24 Discontinued Famotidine 20 MG Oral Tablet (Pepcid) TAKE ONE TABLET BY MOUTH TWICE DAILY 180 Tablet 3 3 10/01/19 24 Discontinued Benzonatate 100 MG Oral Capsule (Tessalon Perles) Take 1 Capsule by mouth 3 times a day as needed for Cough. Do not cut, crush, or chew. 50 Capsule 1 3 11/22/19 24 Discontinued(Ref ill) Insulin Glargine Solostar 100 UNIT/ML Subcutaneous Solution Pen-injector (Lantus SoloStar)Indicat ions:Type 2 diabetes mellitus with hemoglobin A1c goal of less than 8.0% (HCC) Inject 30 Units under the skin daily. 30 mL 1 4 11/18/19 24 Discontinued Sertraline HCl 50 MG Oral Tablet (Zoloft) TAKE 1/2 TABLET EVERY DAY 45 Tablet 1 4 10/25/19 24 Discontinued Gabapentin 100 MG Oral Capsule (Neurontin) TAKE 2 CAPSULES IN THE EVENING 180 Capsule 1 4 10/29/19 24 Discontinued Metoprolol Tartrate 25 MG Oral Tablet (Lopressor)Indic ations:Stable angina (HCC) TAKE 1/2 TABLET TWICE DAILY 90 Tablet 1 4 10/25/19 24 Discontinued Finasteride 5 MG Oral Tablet (Proscar)Indicat ions:BPH without obstruction/lowe r urinary tract symptoms TAKE ONE TABLET EVERY DAY 90 Tablet 1 4 10/25/19 24 Discontinued Cefuroxime Axetil 500 MG Oral Tablet (Ceftin)Indicati ons:Bronchitis, complicated,Hype rtrophic toenail,Cellulit is of great toe of right foot Take 1 Tablet by mouth 2 times a day. 14 Tablet 4 10/07/19 24 Discontinued(Med ication List Clean Up) documented as of this encounter (statuses as of 11/25/2023) Active Problems Problem Noted Date Diagnosed Date Type 2 diabetes mellitus wit h stage 3b chronic kidney disease, with long-term current use of insulin 06/14/2023 Inavailability of community resources 11/27/2022 Food insecurity 07/02/2022 Overview: Per [facility] Protocol Diabetic polyneuropathy asso ciated [...] as of this encounter (statuses as of 11/25/2023) Resolved Problems Problem Noted Date Diagnosed Date [...] inactive term ACTIVE CASE MANAGEMENT-Flaco Roberts RN [phone]. 05/05/2008 12/12/2009 DIAB RENAL MANIF ADULT 09/17/200707/02 [...] as of this encounter (statuses as of 11/25/2023) Immunizations Name Administration Dates Next Due COVID-19 mRNA, LNP-s, No Pre serve, 2-Dose Series (DDN) 10/26/2020,10/05/2020 COVID-19, MRNA-LNP, 23-24, P F, 30 MCG/0.3 mL, 12 YRS AND ABOVE, IM (Pryv-Comirnaty) 01/30/2023 Covid-19, Mrna, Lnp-s, Pf, B ivalent, 30 Mcg, IM, 12 yrs and above (Pfizer) 03/01/2022 Pneumococcal Conjugate Vacc, 13 Valent (Prevnar) 05/06/2014 Pneumococcal Polysaccharide PPV23 (Pneumovax) 12/28/2004 Season Influenza, Quad, PF, Adjuvanted, 65+ Yrs, IM (FLUAD) 11/05/2019 Seasonal Influenza, PF, 6 M & above, IM , (FluLaval or Fluzone) 02/20/2018,04/09/2017 Seasonal Influenza, Quadriva lent Hd (Fluzone Hd) 11/27/2022,01/03/2022,01/25/2021 Seasonal Influenza, Quadriva lent, No Preserve, IM 11/07/2015,12/06/2014 Seasonal Influenza, Trivalen t, (IIV3), with Preserv, (Fluzone) 11/19/2013,01/02/2013,11/27/2011,01/01,12/01/2009,03/07/2009,01/07/2008 ,12/09/2006,12/12/2005,12/28/2004 Seasonal Influenza, Trivalen t, Adjuvanted, 65+ YRS, [...] No 07/03/2023 Does the household have a [facility] source of income? (Household - for ages [...] as of this encounter Miscellaneous Notes * Addendum Note - Sobeida Orourke LPN [...] was received by office. Name/Company sending fax: [facility] Checking on the status of request incomplete forms faxed back on 09/19/23; Please have provider initial and date the changes that were made on the form * Telephone Encounter - Nasim Gonzales OSA - 10/03/2023 11:43 AM EDT Vivian from [facility] calling checking on the status of this request. Vivian advised that the original order request from 08/27/23 & 09/09/23 did not have the provider's NPI number &the form needed to be initialed and dated. If you can please review and fax the request back to [phone]. Of note, there were two faxes sent on behalf of this patient - one was for the initial request, the second was for an increased supply order - the reference # for the request is [id number]. * Telephone Encounter - Tegan Banks RN - 09/25/2023 1:18 PM EDT On counter for Dr. Mosley to sign. * Telephone Encounter - Saida Gonzalez LPN - 09/25/2023 1:03 PM EDT Has anyone seen this fax? * Telephone Encounter - Glory Cheema PHARM Tech - 09/19/2023 9:09 AM EDT [facility] called stating they will be faxing over request for incontinence supplies. Thanks, Glory Cheema Information Technology Audit Manager [facility] 09/19/2023,9:10 AM documented in this encounter Plan of Treatment Upcoming Encounters Date Type Department Care Team (Late st Contact Info) Description 11/25/2023 1:30 PM EDT Telemedicine Pharmacy, [address] [place] [address] [place] [address] Arrived 12/02/2023 2:40 PM EDT Telemedicine Pharmacy, [address] [place] [address] [place] [address] 01/21/2024 8:40 AM EST Office Visit Family [facility] [address] [facility] [address] [place] [address] Manjeet Mosley III, MD [address] [place] [address] 07/06/2024 8:30 AM EDT Nurse Only Ancillary [address] [place] [address] [place], Nurse Annual Wellness [address] [place] [address] [place] [address] Health Maintenance Due Date Last Done Comments [...] Additional history exists CKD HGB USE SMARTSET 75499 10/06/202410/06, 06/14/2023, 01/30/2023, Additional history exists CKD PHOS USE SMARTSET 44309 10/06/202409/25, 01/30/2023, 01/03/2022, Additional history exists Albumin/Creatinine [...] (male)(female) documented in this encounter Care Teams Stone Processing Machine Operator Relationship Specialty Start Date End Date Manjeet Mosley III, MD [address] [place] [address] PCP - General 11/18/06 documented as of this encounter
--- OUTSIDE RECORDS SUMMARY | 2024-01-26 10:38 | External Medical Summary | Summary of Care ---
Author Name Unknown Organization [facility] Address [address] [place] [address] Phone [phone] Care Team Providers Care Word Processing Machine Operator Name Role Phone Dimitri EMERY MD, John E Primary Care Provider [phone] Reason for Visit * Reason Onset Date Comments Med Request 11/19/2023 Encounter Details Date Type Department Care Team (Late st Contact Info) Description 11/19/[address] [address] Manjeet Mosley III, MD [address] [place] [id number] Med Request Allergies Active Allergy Reactions Criticality Noted Date Comments Metformin Hydrochloride 11/14/2004 GI SE Salicylates 03/10/2002 documented as of this encounter (statuses as of 12/04/2023) Medications Medication Sig Dispensed Refills Start Date End Date Status ONETOUCH DELICA LANCING DEV MISCIndications:D M type 2, goal A1C 7-8 Use to test blood sugar 3 times daily 1 Device 0 01/15/2012 Active ONETOUCH DELICA LANCETS FINE MISCIndications:D M type 2, goal A1C below 8.0 test blood sugar four times daily as directed; dx 250.00 100 Each 11 04/02/2014 Active ONETOUCH ULTRA BLUE STRPIndications:D iabetes mellitus, type II ([facility]) Use up to four times a day as directed Dx 250.00 Insulin Dependent Sliding Scale 100 Strip 11 05/14/2014 Active clobetasol propionate (TEMOVATE) 0.05 % ointmentIndicatio ns:Dermatitis Apply topically to affected area 2 times a day. To affected area for up to two weeks. 30 g 1 09/12/2015 Active BD Pen Needle Short U/F 31G X 8 MM (Insulin Pen Needle)Indication s:Type 2 diabetes mellitus with hemoglobin A1c goal of less than 8.0% ([facility]) Use with insulins - 4 times a day. DX e11.9 400 Each 3 09/13/2021 Active Triamcinolone Acetonide 0.1 % External Cream (Aristocort) Apply topically to affected area 2 times a day . To affected area. 60 g 5 09/13/2021 Active Nitroglycerin 0.4 MG Sublingual Tablet Sublingual (Nitrostat)Indica tions:Chest pain 1 tablet ever 5 min as needed with chest pain up to 3 doses in 15 minutes 25 Tablet 11 09/13/2021 Active Aspirin Low Dose 81 MG Oral Tablet Delayed Release (aspirin enteric coated)Indication s:Chest pain TAKE ONE TABLET BY MOUTH EVERY DAY 30 Tablet 3 05/11/2022 Active Diclofenac Sodium 1 % External Gel (Voltaren) Apply topically to affected area 3 times a day. 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[facility]),Other specified glaucoma one drop to both eyes twice daily 10 mL 3 2022 Active Insulin Lispro (1 Unit Dial) 100 UNIT/ML Subcutaneous Solution Pen-injector (HumaLOG KwikPen)Indicatio ns:Type 2 diabetes mellitus with hemoglobin A1c goal of less than 8.0% ([facility]) inject 12 units under the skin before breakfast, 10 units before lunch nad 13 units before supper 45 mL 1 12/18/2022 Active Vitamin D High Potency 25 MCG (1000 UT) Oral Capsule (Cholecalciferol) TAKE 1 TABLET BY MOUTH EVERY OTHER DAY 30 Capsule 3 05/13/2023 Active FreeStyle Sheree 2 SensorIndications :Type 2 diabetes mellitus with hemoglobin A1c goal of less than 7.5% ([facility]) Use as directed. Change every 14 days. 3 Each 06/06/2023 Active Incontinence Brief Large As directed 18 Each 06/07/2023 Active FreeStyle Sheree [address] [place] Device Use as directed. 1 Each 2 06/07/2023 Active Terazosin HCl 2 MG Oral CapsuleIndication s:Edema, unspecified type TAKE ONE CAPSULE AT BEDTIME 90 Capsule 1 07/04/2023 Active Gabapentin 300 MG Oral Capsule (Neurontin) TAKE TWO CAPSULES BY MOUTH TWICE DAILY 360 Capsule 3 08/27/2023 Active Donepezil HCl 10 MG Oral Tablet (Aricept) TAKE ONE TABLET BY MOUTH EVERY DAY 90 Tablet 3 08/27/2023 Active Rosuvastatin Calcium 20 MG Oral Tablet (Crestor)Indicati ons:Dyslipidemia, goal LDL below 100 TAKE ONE TABLET BY MOUTH EVERY DAY 90 Tablet 3 08/27/2023 Active Omeprazole 20 MG Oral Capsule Delayed Release (PriLOSEC) TAKE ONE CAPSULE BY MOUTH EVERY DAY 90 Capsule 3 08/27/2023 Active guaiFENesin ER 600 MG Oral Tablet Extended Release 12 Hour (Mucinex)Indicati ons:Bronchitis, complicated Take 1 Tablet by mouth 2 times a day as needed for Congestion. Take with plenty of water. Do not cut, crush or chew 40 Tablet 09/12/2023 Active Additional Information Patient not taking.Reported on 11/04/2023 Famotidine 20 MG Oral Tablet (Pepcid) TAKE ONE TABLET TWICE DAILY 180 Tablet 3 10/01/2023 Active Furosemide 40 MG Oral Tablet (Lasix)Indication s:Edema, unspecified type TAKE 1 TABLET BY MOUTH [...] Active Metoprolol Tartrate 25 MG Oral Tablet (Lopressor)Indica tions:Stable angina (HCC) TAKE 1/2 TABLET TWICE DAILY 90 Tablet 3 10/25/2023 Active Finasteride 5 MG Oral Tablet (Proscar)Indicati ons:BPH without obstruction/lower urinary tract symptoms TAKE ONE TABLET EVERY DAY 90 Tablet 3 10/25/2023 Active Lantus SoloStar 100 UNIT/ML Subcutaneous Solution Pen-injector (Insulin Glargine Solostar)Indicati ons:Type 2 diabetes mellitus with hemoglobin A1c goal of less than 8.0% ([facility]) Inject 30 Units under the skin daily. 30 mL 1 11/18/2023 Active Benzonatate 100 MG Oral Capsule (Tessalon Perlbernardino) Take 1 Capsule by mouth 3 times a day as needed for Cough. Do not cut, crush, or chew. 50 Capsule 1 02/19/2023 Discontinue d(Refill) documented as of this encounter (statuses as of 12/04/2023) Active Problems Problem Noted Date Diagnosed Date [...] as of this encounter (statuses as of 12/04/2023) Resolved Problems Problem Noted Date Diagnosed Date [...] inactive term ACTIVE CASE MANAGEMENT-Flaco Roberts RN [phone]. 05/05/2008 12/12/2009 DIAB RENAL MANIF ADULT 09/17/200707/02 [...] as of this encounter (statuses as of 12/04/2023) Immunizations Name Administration Dates Next Due COVID-19 mRNA, LNP-s, No Pre serve, 2-Dose Series (RentersQ) 10/26/2020,10/05/2020 COVID-19, MRNA-LNP, 23-24, P F, 30 MCG/0.3 mL, 12 YRS AND ABOVE, IM (Multimedia Plus | QuizScore-Comirnat) 01/30/2023 Covid-19, Mrna, Lnp-s, Pf, B ivalent, 30 Mcg, IM, 12 yrs and above (RentersQ) 03/01/2022 Pneumococcal Conjugate Vacc, 13 Valent (Prevnar) [...] encounter Miscellaneous Notes * Telephone Encounter - Jessica Phillips OSA - 12/04/2023 3:23 PM EDT Patient calling in to check on the status of previous message. Patient Called within 48 hour timeframe. Reminded patient of 48 hour turn-around time. * Telephone Encounter - Fabienne Rockwell OSA - 12/03/2023 3:49 PM EDT [employer] calling to check status of the incontinence supplies. I informed her that they were faxed on 11/25 but after verifying the fax number, it is incorrect. Please fax to [phone] or [phone] * Telephone Encounter - Tegan Banks RN - 11/26/2023 4:23 PM EDT Order faxed to [phone]. Transmission confirmed. Copy put into scan. * Telephone Encounter - Laurie Leal CPhT - 11/25/2023 4:06 PM EDT [facility] calling to check on status of incontinence supplies. Caller requesting high priority. Thank you, Laurie Leal CPhT [employer] [facility] 11/25/2023, 4:06 PM * Telephone Encounter - Thuy Lee OSA - 11/20/2023 8:51 AM EDT [facility] [employer] rep calling, need to have the updated order faxed to them @ [phone], attn: Jayla * Telephone Encounter - Harika Oliver outside sales account representative - 11/19/2023 8:45 AM EDT An order was requested for this patient. Name of Requestor: [employer] Order Request: Incontinent supplies large pulls up , liners , wipes and gloves - ROUTE TO CLINIC NURSE POOL Diagnosis/Reason for Request: incontinent Does the order need to be faxed somewhere? If so, where?: [facility] Fax Number, if applicable: [phone] Call Back Number: [phone] Thank you, Harika Oliver Chain Sales Representative [facility] 11/19/2023,8:45 AM documented in this encounter Plan of Treatment Upcoming Encounters Date Type Department Care Team (Late st Contact Info) Description 12/31/2023 6:10 PM EST Pharmacy Pharmacy, [address] [place] [address] [place] [address] 01/21/2024 8:40 AM EST Office Visit Family Practice [facility] [place] [address] [place] [address] Dimitri Manjeet EMERY MD 200 [facility] [place] [address] 07/06/2024 8:30 AM EDT Nurse Only Ancillary [place] [address] [place] [address] [place], Nurse [address] [place] [address] Health Maintenance Due Date Last Done Comments DTap/Tdap Vaccines (1 - Tdap) 08/03/2008 08/02/2008 Zoster Vaccines (3 of 3) 06/12/2019 04/17/2019, 03/29 COVID-19 Vaccine ( - season) 2023 01/30/2023, 03/01/2022, 10/26/2020, Additional [...] Additional history exists CKD HGB USE SMARTSET 74454 10/06/202410/06, 06/14/2023, 01/30/2023, Additional history exists CKD PHOS USE SMARTSET 51672 10/06/202409/25, 01/30/2023, 01/03/2022, Additional history exists Albumin/Creatinine [...] filedocumented as of this encounter Care Teams Word Processing Machine Operator Relationship Specialty Start Date End Date Manjeet Mosley III, MD [address] [facility] [place] [address] PCP - General 11/18/06 documented as of this encounter"
--- OUTSIDE RECORDS SUMMARY | 2024-01-26 10:38 | External Medical Summary | Summary of Care ---
Author Name Unknown Organization [facility] Address [address] [place] [address] Phone [phone] Care Team Providers Care Buccaro Name Role Phone Dimitri EMERY MD, John E Primary Care Provider [phone] Reason for Visit * Reason Onset Date Comments Med Request 11/19/2023 Encounter Details Date Type Department Care Team (Late st Contact Info) Description 11/19/[address] [address] Manjeet Mosley III, MD [address] [place] [phone] Med Request Allergies Active Allergy Reactions Criticality Noted Date Comments Metformin Hydrochloride 11/14/2004 GI SE Salicylates 03/10/2002 documented as of this encounter (statuses as of 12/03/2023) Medications Medication Sig Dispensed Refills Start Date [...] ULTRA BLUE STRPIndications:D iabetes mellitus, type II ([facility]) Use up to four times a day [...] hemoglobin A1c goal of less than 8.0% ([facility]) Use with insulins - 4 times a [...] 0.2-0.5 % Ophthalmic Solution (Combigan)Indicat ions:Stable angina ([facility]),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[facility]),Other specified glaucoma one drop to both eyes twice daily 10 mL 3 2022 Active Insulin Lispro (1 Unit Dial) 100 UNIT/ML Subcutaneous Solution Pen-injector (HumaLOG KwikPen)Indicatio ns:Type 2 diabetes mellitus with hemoglobin A1c goal of less than 8.0% ([facility]) inject 12 units under the skin before breakfast, 10 units before lunch nad 13 units before supper 45 mL 1 12/18/2022 Active Vitamin D High Potency 25 MCG (1000 UT) Oral Capsule (Cholecalciferol) TAKE 1 TABLET BY MOUTH EVERY OTHER DAY 30 Capsule 3 05/13/2023 Active FreeStyle Sheree 2 SensorIndications :Type 2 diabetes mellitus with hemoglobin A1c goal of less than 7.5% ([facility]) Use as directed. Change every 14 days. 3 Each 06/06/2023 Active Incontinence Brief Large As directed 18 Each 06/07/2023 Active FreeStyle Sheree 2 [place] Device Use as directed. 1 Each 2 [...] hemoglobin A1c goal of less than 8.0% ([facility]) Inject 30 Units under the skin daily. 30 mL 1 11/18/2023 Active Benzonatate 100 MG Oral Capsule (Tessalon Perlbernardino) Take 1 Capsule by mouth 3 times a day as needed for Cough. Do not cut, crush, or chew. 50 Capsule 1 02/19/2023 Discontinue d(Refill) documented as of this encounter (statuses as of 12/03/2023) Active Problems Problem Noted Date Diagnosed Date [...] as of this encounter (statuses as of 12/03/2023) Resolved Problems Problem Noted Date Diagnosed Date [...] inactive term ACTIVE CASE MANAGEMENT-Flaco Roberts RN [phone]. 05/05/2008 12/12/2009 DIAB RENAL MANIF ADULT 09/17/200707/02 [...] as of this encounter (statuses as of 12/03/2023) Immunizations Name Administration Dates Next Due COVID-19 mRNA, LNP-s, No Pre serve, 2-Dose Series (Vayyar) 10/26/2020,10/05/2020 COVID-19, MRNA-LNP, 23-24, P F, 30 MCG/0.3 mL, 12 YRS AND ABOVE, IM (Kandu-Comirnat) 01/30/2023 Covid-19, Mrna, Lnp-s, Pf, B ivalent, 30 Mcg, IM, 12 yrs and above (Vayyar) 03/01/2022 Pneumococcal Conjugate Vacc, 13 Valent (Prevnar) [...] encounter Miscellaneous Notes * Telephone Encounter - Fabienne Rockwell OSA - 12/03/2023 3:49 PM EDT [employer] calling to check status of the incontinence supplies. I informed her that they were faxed on 11/25 but after verifying the fax number, it is incorrect. Please fax to [phone] or [phone] * Telephone Encounter - Tegan Banks RN - 11/26/2023 4:23 PM EDT Order faxed to [phone]. Transmission confirmed. Copy put into scan. * Telephone Encounter - Laurie Leal CPhT - 11/25/2023 4:06 PM EDT [facility] calling to check on status of incontinence supplies. Caller requesting high priority. Thank you, Laurie Leal CPhT [employer] [facility] 11/25/2023, 4:06 PM * Telephone Encounter - Thuy Lee OSA - 11/20/2023 8:51 AM EDT [facility] [employer] rep calling, need to have the updated order faxed to them @ [phone], attn: Jayla * Telephone Encounter - Harika Oliver market garden worker - 11/19/2023 8:45 AM EDT An order was requested for this patient. Name of Requestor: [employer] Order Request: Incontinent supplies large pulls up , liners , wipes and gloves - ROUTE TO CLINIC NURSE POOL Diagnosis/Reason for Request: incontinent Does the order need to be faxed somewhere? If so, where?: [facility] Fax Number, if applicable: [phone] Call Back Number: [phone] Thank you, Harika Oliver Media Liaison Officer [facility] 11/19/2023,8:45 AM documented in this encounter Plan of Treatment Upcoming Encounters Date Type Department Care Team (Late st Contact Info) Description 12/03/2023 6:10 PM EDT Pharmacy Pharmacy, [address] [place] [address] [place] [address] Type 2 diabetes mellitus with hemoglobin A1c goal of less than 8.0% ([facility])* 12/31/2023 6:10 PM EST Pharmacy Pharmacy, [address] [place] [address] [place] [address] 01/21/2024 8:40 AM EST Office Visit Family Practice [place] [facility] [place] [address] [facility] [place] [address] Manjeet Mosley III, MD 200 [facility] [place] [address] 07/06/2024 8:30 AM EDT Nurse Only Ancillary [place] [address] [place] [address] [place], Nurse [address] [place] [address] Health Maintenance Due Date Last Done Comments [...] Additional history exists CKD HGB USE SMARTSET 13763 10/06/202410/06, 06/14/2023, 01/30/2023, Additional history exists CKD PHOS USE SMARTSET 51531 10/06/202409/25, 01/30/2023, 01/03/2022, Additional history exists Albumin/Creatinine [...] filedocumented as of this encounter Care Teams Buccaro Relationship Specialty Start Date End Date Manjeet Mosley III, MD [address] [place] [address] PCP - General 11/18/06 documented as of this encounter
--- OUTSIDE RECORDS SUMMARY | 2024-01-26 10:38 | External Medical Summary | Summary of Care ---
Author Name Unknown Organization [facility] Address [address] [place] [facility] [place] [address] Phone [phone] Care Team Providers Care Antenna Design Engineer Name Role Phone Dimitri EMERY MD, Manjeet Adkins Primary Care Provider [phone] Reason for Visit * Reason Comments Dosage Adjustment Via Phone (anticoag Cl inic) Diabetes Follow-Up Encounter Details Date Type Department Care Team (Late st Contact Info) Description 11/25/2023 1:30 PM EDT Telemedicine Pharmacy, [address] [place] [address] [place] [address] Type 2 diabetes mellitus with hemoglobin A1c goal of less than 8.0% ([facility])* Allergies Active Allergy Reactions Criticality Noted Date [...] daily as directed; dx 250.00 100 Each 04/02/2014 Active ONETOUCH ULTRA BLUE STRPIndications:Marylin betes mellitus, type II ([facility]) Use up to four times a [...] hemoglobin A1c goal of less than 8.0% ([facility]) Use with insulins - 4 times [...] 0.2-0.5 % Ophthalmic Solution (Combigan)Indicatio ns:Stable angina ([facility]),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[facility]),Other specified glaucoma one drop to both eyes twice daily 10 mL 3 2022 Active Insulin Lispro (1 Unit Dial) 100 UNIT/ML Subcutaneous Solution Pen-injector (HumaLOG KwikPen)Indications :Type 2 diabetes mellitus with hemoglobin A1c goal of less than 8.0% ([facility]) inject 12 units under the skin before breakfast, 10 units before lunch nad 13 units before supper 45 mL 1 12/18/2022 Active Vitamin D High Potency 25 MCG (1000 UT) Oral Capsule (Cholecalciferol) TAKE 1 TABLET BY MOUTH EVERY OTHER DAY 30 Capsule 3 05/13/2023 Active FreeStyle Sheree 2 SensorIndications:T ype 2 diabetes mellitus with hemoglobin A1c goal of less than 7.5% ([facility]) Use as directed. Change every 14 days. 3 Each 06/06/2023 Active Incontinence Brief Large As directed 18 Each 06/07/2023 Active FreeStyle Sheree 2 [place] Device Use as directed. 1 Each 2 [...] inactive term ACTIVE CASE MANAGEMENT-Flaco Roberts RN [phone]. 05/05/2008 12/12/2009 DIAB RENAL MANIF ADULT 09/17/200707/02 [...] mRNA, LNP-s, No Pre serve, 2-Dose Series (Thuuz) 10/26/2020,10/05/2020 COVID-19, MRNA-LNP, 23-24, P F, 30 MCG/0.3 mL, 12 YRS AND ABOVE, IM ([employer]-Comirnat) 01/30/2023 Covid-19, Mrna, Lnp-s, Pf, B ivalent, [...] Influenza, Trivalen t, (IIV3), with Preserv, (Fluzone) 11/19/2013,01/02/2013,11/27/2011,2010,12/01/2009,03/07/2009,01/07/2008,1 ,12/12/2005 Seasonal Influenza, Trivalen t, Adjuvanted, 65+ YRS, [...] as of this encounter Progress Notes * Carol Paez RPh - 11/25/2023 1:33 PM EDT Images from the original note were not included. After connecting to the patient via telephone, the patient was identified by name and date of . Patient was then informed that this was a telephone call only visit. The patient agreed to participate. Visit Disposition: Routine follow-up Total call duration was 0 minutes. Attempted to contact patient and daughter. No answer. Unable to LM. Overall Freestyle Sheree review showing readings remaining stable and under acceptable control. No instances of hypoglycemia observed. Med Review call placed on 12/01. Will plan to follow up at that time and discuss possible discharge from [facility]. Diabetic Medications: Lantus pen - 30 units daily in evening Humalog pen - 8 units before breakfast, 8 units before Lunch, 13 units before supper eGFR 48 01/30/23 Carol Paez RPh Clinical Pharmacist - Custom Decorating Consultant [facility] 11/25/2023, 1:33 PM documented in this encounter Plan of Treatment Upcoming Encounters Date Type Department Care Team (Late st Contact Info) Description 12/02/2023 2:40 PM EDT Telemedicine Pharmacy, [address] [place] [address] [place] [address] 01/21/2024 8:40 AM EST Office Visit Family Practice [facility] [place] [address] [facility] [place] [address] Manjeet Mosley III, MD [address] [facility] [place] [address] 07/06/2024 8:30 AM EDT Nurse Only Ancillary [address] [place] [address] [place], Nurse [address] [place] [address] Health Maintenance Due Date Last Done Comments [...] Additional history exists CKD HGB USE SMARTSET 03073 10/06/202410/06, 06/14/2023, 01/30/2023, Additional history exists CKD PHOS USE SMARTSET 06605 10/06/202409/25, 01/30/2023, 01/03/2022, Additional history exists Albumin/Creatinine [...] as of this encounter Visit Diagnoses Diagnosis Type 2 diabetes mellitus with hemoglobin A1c goal of less than 8.0% (HCC)- Primary documented in this encounter Care Teams Antenna Design Engineer Relationship Specialty Start Date End Date Manjeet Mosley III, MD [address] [facility] [place] [address] PCP - General 11/18/06 documented as of this encounter
--- OUTSIDE RECORDS SUMMARY | 2024-01-26 10:38 | External Medical Summary | Summary of Care ---
Author Name Unknown Organization [facility] Address [address] [facility] [place] [address] Phone [phone] Care Team Providers Care Mixer Crane Operator Name Role Phone Dimitri EMERY MD, Manjeet Adkins Primary Care Provider [phone] Reason for Visit * Reason Comments Appointment Encounter Details Date Type Department Care Team (Late st Contact Info) Description 12/03/2023 6:10 PM EDT Pharmacy Pharmacy, [address] [place] [address] [place] [address] Type 2 diabetes mellitus with hemoglobin A1c goal of less than 8.0% ([facility])* Allergies Active Allergy Reactions Criticality Noted Date Comments Metformin Hydrochloride 11/14/2004 GI SE Salicylates 03/10/2002 documented as of this encounter (statuses as of 12/03/2023) Medications Medication Sig Dispensed Refills Start Date End Date Status GetNotesTOUCH DELICA LANCING DEV MISCIndications:DM type 2, goal A1C 7-8 Use to test blood sugar 3 times daily 1 Device 0 01/15/2012 Active ONETOUCH DELICA LANCETS FINE MISCIndications:DM type 2, goal A1C below 8.0 test blood sugar four times daily as directed; dx 250.00 100 Each 11 04/02/2014 Active ONETOUCH ULTRA BLUE STRPIndications:Marylin betes mellitus, type II ([facility]) Use up to four times [...] hemoglobin A1c goal of less than 8.0% ([facility]) Use with insulins - 4 [...] 0.2-0.5 % Ophthalmic Solution (Combigan)Indicatio ns:Stable angina ([facility]),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[facility]),Other specified glaucoma one drop to both eyes twice daily 10 mL 3 2022 Active Insulin Lispro (1 Unit Dial) 100 UNIT/ML Subcutaneous Solution Pen-injector (HumaLOG KwikPen)Indications :Type 2 diabetes mellitus with hemoglobin A1c goal of less than 8.0% ([facility]) inject 12 units under the [...] hemoglobin A1c goal of less than 7.5% ([facility]) Use as directed. Change every 14 days. 3 Each 06/06/2023 Active Incontinence Brief Large As directed 18 Each 06/07/2023 Active FreeStyle Sheree 2 [place] Device Use as directed. 1 Each 2 [...] hemoglobin A1c goal of less than 8.0% ([facility]) Inject 30 Units under the [...] inactive term ACTIVE CASE MANAGEMENT-Flaco Roberts RN [phone]. 05/05/2008 12/12/2009 DIAB RENAL MANIF ADULT 09/17/200707/02 [...] mRNA, LNP-s, No Pre serve, 2-Dose Series (OnlineSheetMusic) 10/26/2020,10/05/2020 COVID-19, MRNA-LNP, 23-24, P F, 30 MCG/0.3 mL, 12 YRS AND ABOVE, IM (Mimiboard-Comirnat) 01/30/2023 Covid-19, Mrna, Lnp-s, Pf, B ivalent, [...] as of this encounter Progress Notes * Suzy Turpin record center specialist - 12/03/2023 8:20 AM EDT Patient Phone Numbers Unable to leave message on patients answering machine with [employer] Territory Account Representative Rhoda to schedule [facility] appointment for diabetes management and med review. No answer and no VM. i-design Multimediaer message sent --no Clinic will follow up again in 4 week(s). [Attempt # 2] Thank you, Suzy Turpin, [facility] Realty Loan Specialist II [facility] ([facility]) 12/03/2023,8:20 AM documented in this encounter Plan of Treatment Upcoming Encounters Date Type Department Care Team (Late st Contact Info) Description 12/31/2023 6:10 PM EST Pharmacy Pharmacy, [address] [place] [address] [place] [address] 01/21/2024 8:40 AM EST Office Visit Family Practice [facility] [address] [facility] [place] [address] Manjeet Mosley III, MD [address] [facility] [place] [address] 07/06/2024 8:30 AM EDT Nurse Only Ancillary [address] [place] [address] Gauri, Nurse Annual Wellness [address] [place] [address] [place] [address] Health Maintenance Due Date Last Done Comments [...] Additional history exists CKD HGB USE SMARTSET 90526 10/06/202410/06, 06/14/2023, 01/30/2023, Additional history exists CKD PHOS USE SMARTSET 90676 10/06/202409/25, 01/30/2023, 01/03/2022, Additional history exists Albumin/Creatinine [...] hemoglobin A1c goal of less than 8.0% ([facility])- Primary documented in this encounter Care Teams Mixer Crane Operator Relationship Specialty Start Date End Date Manjeet Mosley III, MD [address] [facility] [place] [address] PCP - General 11/18/06 documented as of this encounter
--- OUTSIDE RECORDS SUMMARY | 2024-01-26 10:38 | External Medical Summary | Summary of Care ---
Author Name Unknown Organization [facility] Address [address] [place] [address] Phone [phone] Care Team Providers Care Satellite Communications Operator Name Role Phone Dimitri EMERY MD, John E Primary Care Provider [phone] Reason for Visit * Reason Onset Date Comments Med Request 11/19/2023 Encounter Details Date Type Department Care Team ([facility] st Contact Info) Description 11/19/[address] [address] Manjeet Mosley III, MD [address] [place] [address] Med Request Allergies Active Allergy Reactions Criticality [...] ULTRA BLUE STRPIndications:D iabetes mellitus, type II ([facility]) Use up to four times [...] goal of less than 8.0% ([facility]) Use with insulins - 4 [...] 0.2-0.5 % Ophthalmic Solution (Combigan)Indicat ions:Stable angina ([facility]),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[facility]),Other specified glaucoma one drop to both eyes twice daily 10 mL 3 2022 Active Insulin Lispro (1 Unit Dial) 100 UNIT/ML Subcutaneous Solution Pen-injector (HumaLOG KwikPen)Indicatio ns:Type 2 diabetes mellitus with hemoglobin A1c goal of less than 8.0% ([facility]) inject 12 units under the [...] goal of less than 7.5% ([facility]) Use as directed. Change every 14 days. 3 Each 06/06/2023 Active Incontinence Brief Large As directed 18 Each 06/07/2023 Active FreeStyle Sheree 2 [place] Device Use as directed. 1 Each 2 [...] goal of less than 8.0% ([facility]) Inject 30 Units under the [...] inactive term ACTIVE CASE MANAGEMENT-Flaco Roberts RN [phone]. 05/05/2008 12/12/2009 DIAB RENAL MANIF ADULT 09/17/200707/02 [...] mRNA, LNP-s, No Pre serve, 2-Dose Series (Dianrong.com) 10/26/2020,10/05/2020 COVID-19, MRNA-LNP, 23-24, P F, 30 MCG/0.3 mL, 12 YRS AND ABOVE, IM (Deminos-Comirnat) 01/30/2023 Covid-19, Mrna, Lnp-s, Pf, B ivalent, 30 Mcg, IM, 12 yrs and above (Dianrong.com) 03/01/2022 Pneumococcal Conjugate Vacc, 13 Valent (Prevnar) [...] encounter Miscellaneous Notes * Telephone Encounter - Laurie Leal CPhT - 11/25/2023 4:06 PM EDT [facility] calling to check on status of incontinence supplies. Caller requesting high priority. Thank you, Laurie Leal CPhT Fertilizer Applicator II [facility] ([facility]) 11/25/2023, 4:06 PM * Telephone Encounter - Thuy Lee OSA - 11/20/2023 8:51 AM EDT Medical Supply rep calling, need to have the updated order faxed to them @ [phone], attn: Jayla * Telephone Encounter - Harika Oliver, concrete pavement installer - 11/19/2023 8:45 AM EDT An order was requested for this patient. Name of Requestor: [employer] Order Request: Incontinent supplies large pulls up , liners , wipes and gloves - ROUTE TO CLINIC NURSE POOL Diagnosis/Reason for Request: incontinent Does the order need to be faxed somewhere? If so, where?: [facility] Fax Number, if applicable: [phone] Call Back Number: [phone] Thank you, Harika Oliver Internet Sourcer I [facility] ([facility]) 11/19/2023,8:45 AM documented in this encounter Plan of Treatment Upcoming Encounters Date Type Department Care Team (Late st Contact Info) Description 12/02/2023 2:40 PM EDT Telemedicine Pharmacy, [address] [place] [address] [place] [address] 01/21/2024 8:40 AM EST Office Visit [facility] 200 [facility] [place] [address] Manjeet Mosley III, MD 200 [facility] [place] [address] 07/06/2024 8:30 AM EDT Nurse Only Ancillary [address] [place] [address] [place], Nurse [address] [place] [address] Health Maintenance Due Date Last Done Comments [...] Additional history exists CKD HGB USE SMARTSET 04504 10/06/202410/06, 06/14/2023, 01/30/2023, Additional history exists CKD PHOS USE SMARTSET 92873 10/06/202409/25, 01/30/2023, 01/03/2022, Additional history exists Albumin/Creatinine [...] filedocumented as of this encounter Care Teams Satellite Communications Operator Relationship Specialty Start Date End Date Manjeet Mosley III, MD [address] [place] [address] PCP - General 11/18/06 documented as of this encounter
--- OUTSIDE RECORDS SUMMARY | 2024-01-26 10:38 | External Medical Summary | Summary of Care ---
Author Name Unknown Organization [facility] Address [address] [place] [address] Phone [phone] Care Team Providers Care Capsule Filling Machine Operator Name Role Phone Dimitri EMERY MD, John E Primary Care Provider [phone] Reason for Visit * Reason Onset Date Comments Med Request 11/19/2023 Encounter Details Date Type Department Care Team ([facility] st Contact Info) Description 11/19/[address] [address] Manjeet Mosley III, MD [address] [place] [address] Med Request Allergies Active Allergy Reactions Criticality Noted Date Comments Metformin Hydrochloride 11/14/2004 GI SE Salicylates 03/10/2002 documented as of this encounter (statuses as of 11/26/2023) Medications Medication Sig Dispensed Refills Start Date [...] ULTRA BLUE STRPIndications:D iabetes mellitus, type II ([facility]) Use up to four times [...] A1c goal of less than 8.0% ([facility]) Use with insulins - 4 [...] 0.2-0.5 % Ophthalmic Solution (Combigan)Indicat ions:Stable angina ([facility]),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[facility]),Other specified glaucoma one drop to both eyes twice daily 10 mL 3 2022 Active Insulin Lispro (1 Unit Dial) 100 UNIT/ML Subcutaneous Solution Pen-injector (HumaLOG KwikPen)Indicatio ns:Type 2 diabetes mellitus with hemoglobin A1c goal of less than 8.0% ([facility]) inject 12 units under the [...] A1c goal of less than 7.5% ([facility]) Use as directed. Change every 14 days. 3 Each 06/06/2023 Active Incontinence Brief Large As directed 18 Each 06/07/2023 Active FreeStyle Sheree 2 [place] Device Use as directed. 1 Each 2 [...] A1c goal of less than 8.0% ([facility]) Inject 30 Units under the skin daily. 30 mL 1 11/18/2023 Active Benzonatate 100 MG Oral Capsule (Tessalon Perlbernardino) Take 1 Capsule by mouth 3 times a day as needed for Cough. Do not cut, crush, or chew. 50 Capsule 1 02/19/2023 Discontinue d(Refill) documented as of this encounter (statuses as of 11/26/2023) Active Problems Problem Noted Date Diagnosed Date [...] as of this encounter (statuses as of 11/26/2023) Resolved Problems Problem Noted Date Diagnosed Date [...] inactive term ACTIVE CASE MANAGEMENT-Flaco Roberts RN [phone]. 05/05/2008 12/12/2009 DIAB RENAL MANIF ADULT 09/17/200707/02 [...] as of this encounter (statuses as of 11/26/2023) Immunizations Name Administration Dates Next Due COVID-19 mRNA, LNP-s, No Pre serve, 2-Dose Series (Open-Plug) 10/26/2020,10/05/2020 COVID-19, MRNA-LNP, 23-24, P F, 30 MCG/0.3 mL, 12 YRS AND ABOVE, IM (Ozsale-Comirnat) 01/30/2023 Covid-19, Mrna, Lnp-s, Pf, B ivalent, 30 Mcg, IM, 12 yrs and above (Open-Plug) 03/01/2022 Pneumococcal Conjugate Vacc, 13 Valent (Prevnar) [...] high priority. Thank you, Laurie Leal CPhT Captain/Check Airman II [facility] ([facility]) 11/25/2023, 4:06 PM * Telephone Encounter - Thuy Lee OSA - 11/20/2023 8:51 AM EDT Medical Supply rep calling, need to have the updated order faxed to them @ [phone], attn: Jayla * Telephone Encounter - Harika Oliver, railroad worker - 11/19/2023 8:45 AM EDT An order was requested for this patient. Name of Requestor: [employer] Order Request: Incontinent supplies large pulls up , liners , wipes and gloves - ROUTE TO CLINIC NURSE POOL Diagnosis/Reason for Request: incontinent Does the order need to be faxed somewhere? If so, where?: [facility] Fax Number, if applicable: [phone] Call Back Number: [phone] Thank you, Harika Oliver Slitter Operator I [facility] ([facility]) 11/19/2023,8:45 AM documented in this encounter Plan of Treatment Upcoming Encounters Date Type Department Care Team (Late st Contact Info) Description 12/02/2023 2:40 PM EDT Telemedicine Pharmacy, [address] [place] [address] [place] [address] 01/21/2024 8:40 AM EST Office Visit [facility] 200 [facility] [place] [address] Manjeet Mosley III, MD 200 [facility] [place] [address] 07/06/2024 8:30 AM EDT Nurse Only Ancillary [address] [place] [address] [place], Nurse [address] [place] [address] Health Maintenance Due Date Last Done Comments [...] Additional history exists CKD HGB USE SMARTSET 22795 10/06/202410/06, 06/14/2023, 01/30/2023, Additional history exists CKD PHOS USE SMARTSET 83875 10/06/202409/25, 01/30/2023, 01/03/2022, Additional history exists Albumin/Creatinine [...] filedocumented as of this encounter Care Teams Capsule Filling Machine Operator Relationship Specialty Start Date End Date Manjeet Mosley III, MD [address] [place] [address] PCP - General 11/18/06 documented as of this encounter
--- OUTSIDE RECORDS SUMMARY | 2024-01-26 10:38 | External Medical Summary | Summary of Care ---
Author Name Unknown Organization [facility] Address [address] [place] [address] Phone [phone] Care Team Providers Care Director Of Fundraising Name Role Phone Dimitri EMERY MD, John E Primary Care Provider [phone] Reason for Visit * Reason Comments Dosage Adjustment Via Phone (anticoag Cl inic) * Evaluate & Treat - Unlimited Visits (Within 10 days (routine)) - Authorized Specialty Diagnoses / Procedures Referred By Contac t Referred To Contact Pharmacist / Pharmacy Diagnoses Diabetic polyneuropathy associated with type 2 diabetes mellitus (HCC) Hallucinations Manjeet Mosley III, MD [address] [place] [address] Referral ID Status Reason Start Date Expiration Date Visits Requested Visits Authorized [id number] Authorized Specialty Services Required 10/07/2023 04/04/2024 99 99 Encounter Details Date Type Department Care Team (Late st Contact Info) Description 12/02/2023 2:40 PM EDT Telemedicine Pharmacy, [address] [place] [address] [place] [address] Encounter for medication review* Allergies Active Allergy Reactions Criticality Noted Date Comments Metformin Hydrochloride 11/14/2004 GI SE Salicylates 03/10/2002 documented as of this encounter (statuses as of 12/02/2023) Medications Medication Sig Dispensed Refills Start Date End Date Status ONETOUCH DELICA LANCING DEV MISCIndications:DM type 2, goal A1C 7-8 Use to test blood sugar 3 times daily 1 Device 0 01/15/2012 Active ONETOUCH DELICA LANCETS FINE MISCIndications:DM type 2, goal A1C below 8.0 test blood sugar four times daily as directed; dx 250.00 100 Each 11 04/02/2014 Active EnerLume Energy ManagementTOUCH ULTRA BLUE STRPIndications:Marylin betes mellitus, type II ([facility]) Use up to four times [...] A1c goal of less than 8.0% ([facility]) Use with insulins - 4 [...] 0.2-0.5 % Ophthalmic Solution (Combigan)Indicatio ns:Stable angina ([facility]),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 Change every 14 days. 3 Each 06/06/2023 Active Incontinence Brief Large As directed 18 Each 06/07/2023 Active FreeStyle Sheree 2 [place] Device Use as directed. 1 Each 2 [...] as of this encounter (statuses as of 12/02/2023) Active Problems Problem Noted Date Diagnosed Date Type 2 diabetes mellitus wit h stage 3b chronic kidney disease, with long-term current use of insulin 06/14/2023 Inavailability of community resources 11/27/2022 Food insecurity 07/02/2022 Overview: Per [facility] Protocol Diabetic polyneuropathy asso ciated with [...] as of this encounter (statuses as of 12/02/2023) Resolved Problems Problem Noted Date Diagnosed Date [...] inactive term ACTIVE CASE MANAGEMENT-Flaco Roberts RN [phone]. 05/05/2008 12/12/2009 DIAB RENAL MANIF ADULT 09/17/200707/02 [...] as of this encounter (statuses as of 12/02/2023) Immunizations Name Administration Dates Next Due COVID-19 mRNA, LNP-s, No Pre serve, 2-Dose Series (Danlan) 10/26/2020,10/05/2020 COVID-19, MRNA-LNP, 23-24, P F, 30 [...] Progress Notes * Carol Paez RPh - 12/02/2023 2:40 PM EDT Visit Disposition: Medication Review Total call duration was 0 minutes. Attempted to contact patient and daughter. No answer. Unable to LM. Unable to contact patient for previous DM appointment or med review. Call placed to f/u on rescheduling. Carol Paez RPh, PharmD Clinical Pharmacist - Hat Band Attacher Medication Therapy [facility] 12/02/2023, 2:41 PM [phone] documented in this encounter Plan of Treatment Upcoming Encounters Date Type Department Care Team (Late st Contact Info) Description 12/03/2023 6:10 PM EDT Pharmacy Pharmacy, [address] [place] [address] [place] [address] 01/21/2024 8:40 AM EST Office Visit Family Practice [facility] [place] 200 [facility] [place], [place] [address] Manjeet Mosley III, MD 200 [facility] [place] [address] 07/06/2024 8:30 AM EDT Nurse Only Ancillary [employer] [address] [place] [address] [place], Nurse [address] [place] [address] Scheduled Referrals Name Type Priority Associated Diagnoses Orde r Schedule PHARMACIST MEDS THERAPY MGMT REFERRAL OP Referral Within 10 days (routine) Diabetic polyneuropathy associated with type 2 diabetes mellitus (HCC) Hallucinations Ordered: 10/07/2023 Health Maintenance Due Date Last Done Comments DTap/Tdap Vaccines (1 - Tdap) 08/03/2008 08/02/2008 Zoster Vaccines (3 of 3) 06/12/2019 04/17/2019, 03/29 COVID-19 Vaccine (5 - season) 2023 01/30/2023, 03/01/2022, 10/26/2020, Additional history exists Influenza Vaccine (FLU shot) (#1) 2023 11/27/2022, 01/03/2022, 01/25/2021, Additional history exists HbA1c 04/08/2024 10/07/2023, 0410/2023, 01/30/2023, Additional history exists Diabetic Foot Exam 06/03/2024 06/04/2023 (D one elsewhere), 06/28/2022, 02/06/2021, Additional history exists Adult Wellness Visit 07/02/2024 07/03/2023, 06/28/2022, 06/26/2021 Depression Screening 07/02/2024 07/03/2023, 07/03/19 24 Diabetic Eye Exam 07/31/2024 08/01/2023, , 06/29/2021, Additional history exists CKD HGB USE SMARTSET 55767 10/06/202410/06, 06/14/2023, 01/30/2023, Additional history exists CKD PHOS USE SMARTSET 13810 10/06/202409/25, 01/30/2023, 01/03/2022, Additional history exists Albumin/Creatinine [...] as of this encounter Visit Diagnoses Diagnosis Encounter for medication review- Primary Encounter for long-term (current) use of other medications documented in this encounter Care Teams Director Of Fundraising Relationship Specialty Start Date End Date Manjeet Mosley III, MD [address] [place] [address] PCP - General 11/18/06 documented as of this encounter
--- OUTSIDE RECORDS SUMMARY | 2024-01-26 10:38 | External Medical Summary | Summary of Care ---
Author Name Unknown Organization [facility] Address [address] [place] [address] Phone [phone] Care Team Providers Care Registered Dental Assistant Name Role Phone Dimitri EMERY MD, Manjeet Adkins Primary Care Provider [phone] Reason for Visit * Reason Onset Date Comments Fax 09/19/2023 Encounter Details Date Type Department Care Team (Late st Contact Info) Description 09/19/2023 Telephone Family Practice [facility] 200 [place] [address] Manjeet Mosley III, MD 200 [place] [address] Fax Allergies Active Allergy Reactions Criticality Noted [...] ULTRA BLUE STRPIndications: Diabetes mellitus, type II ([facility]) Use up to four times a [...] goal of less than 8.0% ([facility]) Use with insulins - 4 times [...] 0.2-0.5 % Ophthalmic Solution (Combigan)Indica tions:Stable angina ([facility]),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 Change every 14 days. 3 Each 11 4 Active Incontinence Brief Large As directed 18 Each 4 Active FreeStyle Sheree 2 [place] Device Use as directed. 1 Each 2 [...] resources 11/27/2022 Food insecurity 07/02/2022 Overview: Per [employer] [facility] Protocol Diabetic polyneuropathy asso ciated [...] inactive term ACTIVE CASE MANAGEMENT-Flaco Roberts RN [phone]. 05/05/2008 12/12/2009 DIAB RENAL MANIF ADULT 09/17/200707/02 [...] mRNA, LNP-s, No Pre serve, 2-Dose Series (City[employer]) 10/26/2020,10/05/2020 COVID-19, MRNA-LNP, 23-24, P F, 30 MCG/0.3 mL, 12 YRS AND ABOVE, IM ([employer]-Comirnaty) 01/30/2023 Covid-19, Mrna, Lnp-s, Pf, B ivalent, [...] No 07/03/2023 Does the household have a [facility] source of income? (Household - for ages [...] review and fax the request back to [phone]. Of note, there were two faxes sent on behalf of this patient - one was for the initial request, the second was for an increased supply order - the reference # for the request is [id number]. * Telephone Encounter - Tegan Banks RN [...] request for incontinence supplies. Thanks, Glory [employer] Teacher [facility] ([facility]) 09/19/2023,9:10 AM documented in this encounter Plan of Treatment Upcoming Encounters Date Type Department Care Team (Late st Contact Info) Description 12/02/2023 2:40 PM EDT Telemedicine Pharmacy, [address] [place] [address] [place] [address] 01/21/2024 8:40 AM EST Office Visit Family Practice [facility] [place] [facility] [place] [address] Manjeet Mosley III, MD [address] [place] [address] 07/06/2024 8:30 AM EDT Nurse Only Ancillary [address] [place] [address] [place], Nurse [address] [place] [address] Health Maintenance Due Date Last Done Comments [...] Additional history exists CKD HGB USE SMARTSET 20651 10/06/202410/06, 06/14/2023, 01/30/2023, Additional history exists CKD PHOS USE SMARTSET 93256 10/06/202409/25, 01/30/2023, 01/03/2022, Additional history exists Albumin/Creatinine [...] (male)(female) documented in this encounter Care Teams Registered Dental Assistant Relationship Specialty Start Date End Date Manjeet Mosley III, MD [address] [place] [address] PCP - General 11/18/06 documented as of this encounter
--- OUTSIDE RECORDS SUMMARY | 2024-01-26 10:38 | External Medical Summary | Summary of Care ---
Author Name Unknown Organization [facility] Address [address] [place] [address] Phone [phone] Care Team Providers Care Tire Sorter Name Role Phone Dimitri EMERY MD, John E Primary Care Provider [phone] Reason for Visit * Reason Onset Date Comments Med Request 11/19/2023 Encounter Details Date Type Department Care Team ([facility] st Contact Info) Description 11/19/[address] [address] Manjeet Mosley III, MD [address] [place] [address] Med Request Allergies Active Allergy Reactions Criticality [...] ULTRA BLUE STRPIndications:D iabetes mellitus, type II ([facility]) Use up to four times a [...] goal of less than 8.0% ([facility]) Use with insulins - 4 times [...] 0.2-0.5 % Ophthalmic Solution (Combigan)Indicat ions:Stable angina ([facility]),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 Change every 14 days. 3 Each 06/06/2023 Active Incontinence Brief Large As directed 18 Each 06/07/2023 Active FreeStyle Sheree 2 [place] Device Use as directed. 1 Each 2 [...] goal of less than 8.0% ([facility]) Inject 30 Units under the skin [...] inactive term ACTIVE CASE MANAGEMENT-Flaco Roberts RN [phone]. 05/05/2008 12/12/2009 DIAB RENAL MANIF ADULT 09/17/200707/02 [...] mRNA, LNP-s, No Pre serve, 2-Dose Series ([employer]) 10/26/2020,10/05/2020 COVID-19, MRNA-LNP, 23-24, P F, 30 MCG/0.3 mL, 12 YRS AND ABOVE, IM ([employer]-Comirnat) 01/30/2023 Covid-19, Mrna, Lnp-s, Pf, B ivalent, 30 Mcg, IM, 12 yrs and above ([employer]) 03/01/2022 Pneumococcal Conjugate Vacc, 13 Valent (Prevnar) [...] encounter Miscellaneous Notes * Telephone Encounter - Tegan Banks RN - 11/26/2023 4:23 PM EDT Order faxed to [phone]. Transmission confirmed. Copy put into scan. * Telephone Encounter - Laurie Leal CPhT - 11/25/2023 4:06 PM EDT [facility] calling to check on status of incontinence supplies. Caller requesting high priority. Thank you, Laurie Leal CPhT Sailmaker II [facility] 11/25/2023, 4:06 PM * Telephone Encounter - Thuy Lee OSA - 11/20/2023 8:51 AM EDT Medical Supply rep calling, need to have the updated order faxed to them @ [phone], attn: Jayla * Telephone Encounter - Harika Oliver, retort condenser attendant - 11/19/2023 8:45 AM EDT An order was requested for this patient. Name of Requestor: [employer] Order Request: Incontinent supplies large pulls up , liners , wipes and gloves - ROUTE TO CLINIC NURSE POOL Diagnosis/Reason for Request: incontinent Does the order need to be faxed somewhere? If so, where?: [facility] Fax Number, if applicable: [phone] Call Back Number: [phone] Thank you, Harika Oliver Diver Tender I [facility] 11/19/2023,8:45 AM documented in this encounter Plan of Treatment Upcoming Encounters Date Type Department Care Team (Late st Contact Info) Description 12/02/2023 2:40 PM EDT Telemedicine Pharmacy, [address] [place] [address] [place] [address] 01/21/2024 8:40 AM EST Office Visit Family Practice [facility] 200 [facility] [place] [address] Dimitri IIIManjeet MD 200 [facility] [place] [address] 07/06/2024 8:30 AM EDT Nurse Only Ancillary [address] [place] [address] Jdalley, Nurse [address] [place] [address] Health Maintenance Due Date Last Done Comments [...] Additional history exists CKD HGB USE SMARTSET 14071 10/06/202410/06, 06/14/2023, 01/30/2023, Additional history exists CKD PHOS USE SMARTSET 54102 10/06/202409/25, 01/30/2023, 01/03/2022, Additional history exists Albumin/Creatinine [...] filedocumented as of this encounter Care Teams Tire Sorter Relationship Specialty Start Date End Date Rincon YULY, Manjeet Adkins MD 200 [place] [address] PCP - General 11/18/06 documented as of this encounter
--- OUTSIDE RECORDS SUMMARY | 2024-01-26 10:38 | External Medical Summary | Summary of Care ---
Author Name Unknown Organization [facility] Address [address] [place] [address] Phone [phone] Care Team Providers Care Fisheries Inspector Name Role Phone Dimitri EMERY MD, John E Primary Care Provider [phone] Reason for Visit * Reason Onset Date Comments Med Request 11/19/2023 Encounter Details Date Type Department Care Team ([facility] st Contact Info) Description 11/19/[address] [address] Manjeet Mosley III, MD [address] [place] [address] Med Request Allergies Active Allergy Reactions Criticality Noted Date Comments Metformin Hydrochloride 11/14/2004 GI SE Salicylates 03/10/2002 documented as of this encounter (statuses as of 12/06/2023) Medications Medication Sig Dispensed Refills Start Date [...] ULTRA BLUE STRPIndications:D iabetes mellitus, type II ([facility]) [...] 0.2-0.5 % Ophthalmic Solution (Combigan)Indicat ions:Stable angina ([facility]),DM type 1 [...] 18 Each 06/07/2023 Active FreeStyle Sheree 2 [employer] Device Use as directed. 1 Each 2 [...] less than 8.0% ([facility]) Inject 30 Units under the skin daily. 30 mL 1 11/18/2023 Active Benzonatate 100 MG Oral Capsule (Tessalon Perlbernardino) Take 1 Capsule by mouth 3 times a day as needed for Cough. Do not cut, crush, or chew. 50 Capsule 1 02/19/2023 Discontinue d(Refill) documented as of this encounter (statuses as of 12/06/2023) Active Problems Problem Noted Date Diagnosed Date [...] as of this encounter (statuses as of 12/06/2023) Resolved Problems Problem Noted Date Diagnosed Date [...] inactive term ACTIVE CASE MANAGEMENT-Flaco Roberts RN [phone]. 05/05/2008 12/12/2009 DIAB RENAL MANIF ADULT 09/17/200707/02 [...] as of this encounter (statuses as of 12/06/2023) Immunizations Name Administration Dates Next Due COVID-19 mRNA, LNP-s, No Pre serve, 2-Dose Series ([employer]) 10/26/2020,10/05/2020 COVID-19, MRNA-LNP, 23-24, P F, 30 MCG/0.3 mL, 12 YRS AND ABOVE, IM ([employer]-Comirnat) 01/30/2023 Covid-19, Mrna, Lnp-s, Pf, B ivalent, 30 Mcg, IM, 12 yrs and above ([employer]) 03/01/2022 Pneumococcal Conjugate Vacc, 13 Valent (Prevnar) [...] encounter Miscellaneous Notes * Addendum Note - Brisa Ramirez LPN - 12/06/2023 1:53 PM EDTAddended by: BRISA RAMIREZ on: 12/06/2023 01:53 PM Modules accepted: Orders * Telephone Encounter - Brisa Ramirez LPN - 12/06/2023 1:53 PM EDT faxed * Telephone Encounter - Jessica Phillips OSA [...] number, it is incorrect. Please fax to [phone] or [phone] * Telephone Encounter - Tegan Banks RN - 11/26/2023 4:23 PM EDT Order faxed to [phone]. Transmission confirmed. Copy put into scan. * Telephone Encounter - Laurie Leal CPhT - 11/25/2023 4:06 PM EDT [facility] calling to check on status of incontinence supplies. Caller requesting high priority. Thank you, Laurie Leal CPhT Handle Maker II [facility] 11/25/2023, 4:06 PM * Telephone Encounter - Thuy Lee OSA - 11/20/2023 8:51 AM EDT Medical Supply rep calling, need to have the updated order faxed to them @ [phone], attn: Jayla * Telephone Encounter - Harika Oliver grain manager - 11/19/2023 8:45 AM EDT An order was requested for this patient. Name of Requestor: [employer] Order Request: Incontinent supplies large pulls up , liners , wipes and gloves - ROUTE TO CLINIC NURSE POOL Diagnosis/Reason for Request: incontinent Does the order need to be faxed somewhere? If so, where?: [facility] Fax Number, if applicable: [phone] Call Back Number: [phone] Thank you, Harika Oliver Fire Engine Operator I [facility] 11/19/2023,8:45 AM documented in this encounter Plan of Treatment Upcoming Encounters Date Type Department Care Team (Late st Contact Info) Description 12/31/2023 6:10 PM EST Pharmacy Pharmacy, [address] [place] [address] [place] [address] 01/21/2024 8:40 AM EST Office Visit Family Practice [facility] [place] 200 [facility] [place] [address] Manjeet Mosley III, MD 200 [facility] [place] [address] 07/06/2024 8:30 AM EDT Nurse Only Ancillary [address] [place] [address] Movalley, Nurse [address] [place] [address] Health Maintenance Due Date Last Done Comments [...] 07/03/2023, 06/28/2022, 06/26/2021 Depression Screening 07/02/2024 07/03/2023, 05/08/20 24 Diabetic Eye Exam 07/31/2024 08/01/2023, , 06/29/2021, Additional history exists CKD HGB USE SMARTSET 31836 10/06/202410/06, 06/14/2023, 01/30/2023, Additional history exists CKD PHOS USE SMARTSET 47047 10/06/202409/25, 01/30/2023, 01/03/2022, Additional history exists Albumin/Creatinine [...] Primary Mixed incontinence urge and stress (male)(female) Urinary frequency documented in this encounter Care Teams Fisheries Inspector Relationship Specialty Start Date End Date Manjeet Mosley III, MD [address] [place] [address] PCP - General 11/18/06 documented as of this encounter
--- OUTSIDE RECORDS SUMMARY | 2024-01-26 10:39 | External Medical Summary | Summary of Care ---
Author Name Unknown Organization [facility] Address [address] [place] [address] Phone [phone] Care Team Providers Care Varnish Maker Helper Name Role Phone Dimitri EMERY MD, Manjeet Adkins Primary Care Provider [phone] Reason for Visit * Reason Onset Date Comments Fax 09/19/2023 Encounter Details Date Type Department Care Team (Late st Contact Info) Description 09/19/2023 Telephone Family Practice [facility] 200 [facility] [place] [address] Manjeet Mosley III, MD [address] [place] [address] Fax Allergies Active Allergy Reactions Criticality Noted [...] ULTRA BLUE STRPIndications: Diabetes mellitus, type II ([facility]) [...] 0.2-0.5 % Ophthalmic Solution (Combigan)Indica tions:Stable angina ([facility]),DM type 1 [...] 18 Each 4 Active FreeStyle Sheree 2 [place] Device Use as directed. 1 Each 2 [...] resources 11/27/2022 Food insecurity 07/02/2022 Overview: Per [facility] Protocol Diabetic polyneuropathy asso ciated [...] inactive term ACTIVE CASE MANAGEMENT-Flaco Roberts RN [phone]. 05/05/2008 12/12/2009 DIAB RENAL MANIF ADULT 09/17/200707/02 [...] mRNA, LNP-s, No Pre serve, 2-Dose Series ([employer]) 10/26/2020,10/05/2020 COVID-19, MRNA-LNP, 23-24, P F, 30 MCG/0.3 mL, 12 YRS AND ABOVE, IM ([employer]-Comirnaty) 01/30/2023 Covid-19, Mrna, Lnp-s, Pf, B ivalent, [...] 07/03/2023 Does the household have a [facility] psychiatric center[facility] source of income? (Household - for [...] encounter Miscellaneous Notes * Telephone Encounter - Manjeet Mosley III, [...] was received by office. Name/Company sending fax: [facility] Delivered Checking on the status of request incomplete forms faxed back on 09/19/23; Please have provider initial and date the changes that were made on the form * Telephone Encounter - Nasim Gonzales OSA - 10/03/2023 11:43 AM EDT Vivian from [facility] Delivered calling checking on the status of this request. Vivian advised that the original order request from 08/27/23 & 09/09/23 did not have the provider's NPI number &the form needed to be initialed and dated. If you can please review and fax the request back to [phone]. Of note, there were two faxes sent on behalf of this patient - one was for the initial request, the second was for an increased supply order - the reference # for the request is [id number]. * Telephone Encounter - Tegan Banks RN [...] faxing over request for incontinence supplies. ThanksGlory Hazardous Material Technician [facility] 09/19/2023,9:10 AM documented in this encounter Plan of Treatment Upcoming Encounters Date Type Department Care Team (Late st Contact Info) Description 11/25/2023 1:30 PM EDT Telemedicine Pharmacy, [address] [place] [address] [place] [address] Arrived 12/02/2023 2:40 PM EDT Telemedicine Pharmacy, [address] [place] [address] [place] [address] 01/21/2024 8:40 AM EST Office Visit Family Practice [facility] [place] [place] [address] Manjeet Mosley III, MD 200 [facility] [place] [address] 07/06/2024 8:30 AM EDT Nurse Only Ancillary [address] [place] [address] Gauri, Nurse [address] [place] [address] Health Maintenance Due Date Last Done Comments [...] Additional history exists CKD HGB USE SMARTSET 32197 10/06/202410/06, 06/14/2023, 01/30/2023, Additional history exists CKD PHOS USE SMARTSET 94491 10/06/202409/25, 01/30/2023, 01/03/2022, Additional history exists Albumin/Creatinine [...] filedocumented as of this encounter Care Teams Varnish Maker Helper Relationship Specialty Start Date End Date Manjeet Mosley III, MD 200 [facility] [place] [address] PCP - General 11/18/06 documented as of this encounter
--- OUTSIDE RECORDS SUMMARY | 2024-01-26 10:39 | External Medical Summary | Summary of Care ---
Author Name Unknown Organization [facility] Address [address] [place] [address] Phone [phone] Care Team Providers Care Supervisor Carbon Paper Coating Name Role Phone Dimitri EMERY MD, John E Primary Care Provider [phone] Reason for Visit * Reason Onset Date Comments Med Request 11/19/2023 Encounter Details Date Type Department Care Team (Late st Contact Info) Description 11/19/[address] [address] Manjeet Mosley III, MD [address] [place] [address] Med Request Allergies Active Allergy Reactions Criticality Noted Date Comments Metformin Hydrochloride 11/14/2004 GI SE Salicylates 03/10/2002 documented as of this encounter (statuses as of 11/19/2023) Medications Medication Sig Dispensed Refills Start Date [...] ULTRA BLUE STRPIndications:Marylin betes mellitus, type II ([facility]) Use [...] 0.2-0.5 % Ophthalmic Solution (Combigan)Indicatio ns:Stable angina ([facility]),DM type 1 causing [...] before supper 45 mL 1 12/18/2022 Active Benzonatate 100 MG Oral Capsule (Tessalon Perlbernardino) Take 1 Capsule by mouth 3 times a day as needed for Cough. Do not cut, crush, or chew. 50 Capsule 1 02/19/2023 Active Vitamin D High Potency 25 MCG [...] 18 Each 06/07/2023 Active FreeStyle Sheree 2 [place] Device Use as directed. 1 Each 2 [...] skin daily. 30 mL 1 11/18/2023 Active documented as of this encounter (statuses as of 11/19/2023) Active Problems Problem Noted Date Diagnosed Date [...] as of this encounter (statuses as of 11/19/2023) Resolved Problems Problem Noted Date Diagnosed Date [...] inactive term ACTIVE CASE MANAGEMENT-Flaco Roberts RN [phone]. 05/05/2008 12/12/2009 DIAB RENAL MANIF ADULT 09/17/200707/02 [...] as of this encounter (statuses as of 11/19/2023) Immunizations Name Administration Dates Next Due COVID-19 mRNA, LNP-s, No Pre serve, 2-Dose Series ([employer]) 10/26/2020,10/05/2020 COVID-19, MRNA-LNP, 23-24, P F, 30 MCG/0.3 mL, 12 YRS AND ABOVE, IM ([employer]-Comirnaty) 01/30/2023 Covid-19, Mrna, Lnp-s, Pf, B ivalent, [...] encounter Miscellaneous Notes * Telephone Encounter - Harika Oliver executive administrative assistant - 11/19/2023 8:45 AM EDT An order was requested for this patient. Name of Requestor: [employer] Order Request: Incontinent supplies large pulls up , liners , wipes and gloves - ROUTE TO CLINIC NURSE POOL Diagnosis/Reason for Request: incontinent Does the order need to be faxed somewhere? If so, where?: [facility] Fax Number, if applicable: [phone] Call Back Number: [phone] Thank you, Harika Oliver Wrecking Mechanic I [facility] 11/19/2023,8:45 AM documented in this encounter Plan of Treatment Upcoming Encounters Date Type Department Care Team (Late st Contact Info) Description 11/25/2023 1:30 PM EDT Telemedicine Pharmacy, [address] [place] [address] [place] [address] 01/21/2024 8:40 AM EST Office Visit Family Practice [place] [facility] [place] [address] Dimitri Manjeet EMERY MD 200 [facility] [place] [address] 07/06/2024 8:30 AM EDT Nurse Only Ancillary [address] [place] [address] Moval[place], Nurse Annual Wellness [address] [place] [address] [place] [address] Health Maintenance Due Date Last Done Comments [...] Additional history exists CKD HGB USE SMARTSET 09674 10/06/202410/06, 06/14/2023, 01/30/2023, Additional history exists CKD PHOS USE SMARTSET 46285 10/06/202409/25, 01/30/2023, 01/03/2022, Additional history exists Albumin/Creatinine [...] filedocumented as of this encounter Care Teams Supervisor Carbon Paper Coating Relationship Specialty Start Date End Date Manjeet Mosley III, MD [address] [place] [address] PCP - General 11/18/06 documented as of this encounter
--- OUTSIDE RECORDS SUMMARY | 2024-01-26 10:39 | External Medical Summary | Summary of Care ---
Author Name Unknown Organization [facility] Address [address] [place] [address] Phone [phone] Care Team Providers Care Welding Machine Operator Electron Beam Name Role Phone Dimitri EMERY MD, John E Primary Care Provider [phone] Reason for Visit * Reason Onset Date Comments Med Request 11/19/2023 Encounter Details Date Type Department Care Team (Late st Contact Info) Description 11/19/[address] [address] Manjeet Mosley III, MD [address] [place] [address] Med Request Allergies Active Allergy Reactions Criticality Noted Date Comments Metformin Hydrochloride 11/14/2004 GI SE Salicylates 03/10/2002 documented as of this encounter (statuses as of 11/20/2023) Medications Medication Sig Dispensed Refills Start Date [...] ULTRA BLUE STRPIndications:Marylin betes mellitus, type II ([facility]) Use up to four times a day [...] hemoglobin A1c goal of less than 8.0% ([facility]) Use with insulins - 4 times a [...] 0.2-0.5 % Ophthalmic Solution (Combigan)Indicatio ns:Stable angina ([facility]),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[facility]),Other specified glaucoma one drop to both eyes twice daily 10 mL 3 2022 Active Insulin Lispro (1 Unit Dial) 100 UNIT/ML Subcutaneous Solution Pen-injector ([employer] KwikPen)Indications :Type 2 diabetes mellitus with hemoglobin A1c goal of less than 8.0% ([facility]) inject 12 units under the skin before [...] hemoglobin A1c goal of less than 7.5% ([facility]) Use as directed. Change every 14 days. 3 Each 06/06/2023 Active Incontinence Brief Large As directed 18 Each 06/07/2023 Active FreeStyle Sheree 2 [place] Device Use as directed. 1 Each 2 [...] as of this encounter (statuses as of 11/20/2023) Active Problems Problem Noted Date Diagnosed Date [...] as of this encounter (statuses as of 11/20/2023) Resolved Problems Problem Noted Date Diagnosed Date [...] inactive term ACTIVE CASE MANAGEMENT-Flaco Roberts RN [phone]. 05/05/2008 12/12/2009 DIAB RENAL MANIF ADULT 09/17/200707/02 [...] as of this encounter (statuses as of 11/20/2023) Immunizations Name Administration Dates Next Due COVID-19 mRNA, LNP-s, No Pre serve, 2-Dose Series ([employer]) 10/26/2020,10/05/2020 COVID-19, MRNA-LNP, 23-24, P F, 30 [...] encounter Miscellaneous Notes * Telephone Encounter - Thuy Lee OSA - 11/20/2023 8:51 AM EDT Medical Supply rep calling, need to have the updated order faxed to them @ [phone], attn: Jayla * Telephone Encounter - Harika Oliver manual arts therapist - 11/19/2023 8:45 AM EDT An order was requested for this patient. Name of Requestor: [employer] Order Request: Incontinent supplies large pulls up , liners , wipes and gloves - ROUTE TO CLINIC NURSE POOL Diagnosis/Reason for Request: incontinent Does the order need to be faxed somewhere? If so, where?: [facility] Fax Number, if applicable: [phone] Call Back Number: [phone] Thank you, Harika Oliver Tire Maintenance Technician I [facility] 11/19/2023,8:45 AM documented in this encounter Plan of Treatment Upcoming Encounters Date Type Department Care Team (Late st Contact Info) Description 11/25/2023 1:30 PM EDT Telemedicine Pharmacy, [address] [place] [address] [place] [address] 01/21/2024 8:40 AM EST Office Visit Family Practice [employer] 200 [facility] [place] [address] Manjeet Mosley III, MD 200 [facility] [place] [address] 07/06/2024 8:30 AM EDT Nurse Only Ancillary [address] [place] [address] Gauri Nurse Annual Wellness [address] [place] [address] [place] [address] Health Maintenance Due Date Last Done Comments [...] Additional history exists CKD HGB USE SMARTSET 74649 10/06/202410/06, 06/14/2023, 01/30/2023, Additional history exists CKD PHOS USE SMARTSET 36005 10/06/202409/25, 01/30/2023, 01/03/2022, Additional history exists Albumin/Creatinine [...] filedocumented as of this encounter Care Teams Welding Machine Operator Electron Beam Relationship Specialty Start Date End Date Manjeet Mosley III, MD 200 [facility] [place] [address] PCP - General 11/18/06 documented as of this encounter
--- OUTSIDE RECORDS SUMMARY | 2024-01-26 10:39 | External Medical Summary | Summary of Care ---
Author Name Unknown Organization [facility] Address [address] [place] [address] Phone [phone] Care Team Providers Care Marine Equipment Engineer Name Role Phone Dimitri EMERY MD, Manjeet Adkins Primary Care Provider [phone] Reason for Visit * Reason Onset Date Comments Test Results 11/22/2023 Encounter Details Date Type Department Care Team (Late st Contact Info) Description 11/22/2023 Telephone Family [address] [phone] Maureen Ocampo [address] [place] [address] Test Results Allergies Active Allergy Reactions Criticality Noted Date Comments Metformin Hydrochloride 11/14/2004 GI SE Salicylates 03/10/2002 documented as of this encounter (statuses as of 11/22/2023) Medications Medication Sig Dispensed Refills Start Date [...] STRPIndications:D iabetes mellitus, type II ([facility]) Use up to four times a [...] of less than 8.0% ([facility]) Use with insulins - 4 times [...] Ophthalmic Solution (Combigan)Indicat ions:Stable angina ([facility]),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[facility]),Other specified glaucoma one drop to both eyes twice daily 10 mL 3 2022 Active Insulin Lispro (1 Unit Dial) 100 UNIT/ML Subcutaneous Solution Pen-injector (HumaLOG KwikPen)Indicatio ns:Type 2 diabetes mellitus with hemoglobin A1c goal of less than 8.0% ([facility]) inject 12 units under the skin [...] of less than 7.5% ([facility]) Use as directed. Change every 14 days. 3 Each 06/06/2023 Active Incontinence Brief Large As directed 18 Each 06/07/2023 Active FreeStyle Sheree 2 [place] Device Use as directed. 1 Each 2 [...] of less than 8.0% ([facility]) Inject 30 Units under the skin daily. 30 mL 1 11/18/2023 Active Benzonatate 100 MG Oral Capsule (Tessalon Perles)Indication s:Acute cough Take 1 Capsule by mouth 3 times a day as needed for Cough. Do not cut, crush, or chew. 50 Capsule 1 11/22/2023 Active Benzonatate 100 MG Oral Capsule (Tessalon Perles) Take 1 Capsule by mouth 3 times a day as needed for Cough. Do not cut, crush, or chew. 50 Capsule 1 02/19/2023 Discontinue d(Refill) documented as of this encounter (statuses as of 11/22/2023) Active Problems Problem Noted Date Diagnosed Date Type 2 diabetes mellitus wit h stage 3b chronic kidney disease, with long-term current use of insulin 06/14/2023 Inavailability of community resources 11/27/2022 Food insecurity 07/02/2022 Overview: Per [facility] Protocol Diabetic polyneuropathy asso ciated [...] as of this encounter (statuses as of 11/22/2023) Resolved Problems Problem Noted Date Diagnosed Date [...] inactive term ACTIVE CASE MANAGEMENT-Flaco Roberts RN [phone]. 05/05/2008 12/12/2009 DIAB RENAL MANIF ADULT 09/17/200707/02 [...] as of this encounter (statuses as of 11/22/2023) Immunizations Name Administration Dates Next Due COVID-19 mRNA, LNP-s, No Pre serve, 2-Dose Series ([employer]) 10/26/2020,10/05/2020 COVID-19, MRNA-LNP, 23-24, P F, 30 MCG/0.3 mL, 12 YRS AND ABOVE, IM ([facility]) 01/30/2023 Covid-19, Mrna, Lnp-s, Pf, [...] encounter Miscellaneous Notes * Telephone Encounter - Maureen Ocampo CRNP - 11/22/2023 4:52 PM EDT See My G. documented in this encounter Plan of Treatment Upcoming Encounters Date Type Department Care Team (Late st Contact Info) Description 11/25/2023 1:30 PM EDT Telemedicine Pharmacy, [address] [place] [address] [place] [address] 12/02/2023 2:40 PM EDT Telemedicine Pharmacy, [address] [place] [address] [place] [address] 01/21/2024 8:40 AM EST Office Visit Family Practice [facility] [address] [place] [address] Dimitri III, Manjeet Adkins MD [address] [place] [address] 07/06/2024 8:30 AM EDT Nurse Only Ancillary [place] [place] [address] [place], Nurse [address] [place] [address] Health Maintenance Due Date Last Done Comments [...] Additional history exists CKD HGB USE SMARTSET 25978 10/06/202410/06, 06/14/2023, 01/30/2023, Additional history exists CKD PHOS USE SMARTSET 06266 10/06/202409/25, 01/30/2023, 01/03/2022, Additional history exists Albumin/Creatinine [...] of this encounter Visit Diagnoses Diagnosis Acute cough- Primary documented in this encounter Care Teams Marine Equipment Engineer Relationship Specialty Start Date End Date Manjeet Mosley III, MD [address] [place] [address] PCP - General 11/18/06 documented as of this encounter
--- OUTSIDE RECORDS SUMMARY | 2024-01-26 10:39 | External Medical Summary | Summary of Care ---
Author Name Unknown Organization [facility] Address [address] [place] [address] Phone [phone] Care Team Providers Care Writer Producer Name Role Phone Dimitri EMERY MD, Manjeet Adkins Primary Care Provider [phone] Reason for Visit * Reason Onset Date Comments Fax 09/19/2023 Encounter Details Date Type Department Care Team (Late st Contact Info) Description 09/19/2023 Telephone Family Practice [facility] [address] [place] [address] Manjeet Mosley III, MD [address] [place] [address] Fax Allergies Active Allergy Reactions Criticality Noted Date Comments Metformin Hydrochloride 11/14/2004 GI SE Salicylates 03/10/2002 documented as of this encounter (statuses as of 11/07/2023) Medications Medication Sig Dispensed Refills Start Date [...] ULTRA BLUE STRPIndications: Diabetes mellitus, type II (HCC) Use up to [...] A1c goal of less than 8.0% ([facility]) Use with insulins - 4 times a [...] % Ophthalmic Solution (Combigan)Indica tions:Stable angina ([facility]),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[facility]),Other specified glaucoma one drop to both eyes twice daily 10 mL 3 3 Active Insulin Lispro (1 Unit Dial) 100 UNIT/ML Subcutaneous Solution Pen-injector (HumaLOG KwikPen)Indicati ons:Type 2 diabetes mellitus with hemoglobin A1c goal of less than 8.0% ([facility]) inject 12 units under the skin before breakfast, 10 units before lunch nad 13 units before supper 45 mL 1 3 Active Benzonatate 100 MG Oral Capsule (Teszuri Bill) Take 1 Capsule by mouth 3 times a day as needed for Cough. Do not cut, crush, or chew. 50 Capsule 1 3 Active Insulin Glargine Solostar 100 UNIT/ML Subcutaneous Solution Pen-injector (Lantus SoloStar)Indicat ions:Type 2 diabetes mellitus with hemoglobin A1c goal of less than 8.0% (HCC) Inject 30 Units under the skin daily. 30 mL 1 4 Active Vitamin D High Potency 25 MCG (1000 UT) Oral Capsule (Cholecalciferol ) TAKE 1 TABLET BY MOUTH EVERY OTHER DAY 30 Capsule 3 4 Active FreeStyle Sheree 2 SensorIndication s:Type 2 diabetes mellitus with hemoglobin A1c goal of less than 7.5% (HCC) Use as directed. Change every 14 days. 3 Each 11 4 Active Incontinence Brief Large As directed 18 Each 4 Active FreeStyle Sheree 2 [place] Device Use as directed. 1 Each 2 [...] 180 Tablet 3 3 10/01/19 24 Discontinued Sertraline HCl 50 MG Oral [...] as of this encounter (statuses as of 11/07/2023) Active Problems Problem Noted Date Diagnosed Date [...] as of this encounter (statuses as of 11/07/2023) Resolved Problems Problem Noted Date Diagnosed Date [...] inactive term ACTIVE CASE MANAGEMENT-Flaco Roberts RN [phone]. 05/05/2008 12/12/2009 DIAB RENAL MANIF ADULT 09/17/200707/02 [...] as of this encounter (statuses as of 11/07/2023) Immunizations Name Administration Dates Next Due COVID-19 mRNA, LNP-s, No Pre serve, 2-Dose Series ([employer]) 10/26/2020,10/05/2020 COVID-19, MRNA-LNP, 23-24, P F, 30 [...] Miscellaneous Notes * Telephone Encounter - Nichelle Diana LPN [...] received by office. Name/Company sending fax: [facility] Checking on the status of request incomplete forms faxed back on 09/19/23; Please have provider initial and date the changes that were made on the form * Telephone Encounter - Nasim Gonzales OSA - 10/03/2023 11:43 AM EDT Vivian from [facility] calling checking on the status of this request. Vivian advised that the original order request from 08/27/23 & 09/09/23 did not have the provider's NPI number &the form needed to be initialed and dated. If you can please review and fax the request back to [phone]. Of note, there were two faxes sent on behalf of this patient - one was for the initial request, the second was for an increased supply order - the reference # for the request is [id number]. * Telephone Encounter - Tegan Banks RN - 09/25/2023 1:18 PM EDT On counter for Dr. Mosley to sign. * Telephone Encounter - Saida Gonzalez LPN - 09/25/2023 1:03 PM EDT Has anyone seen this fax? * Telephone Encounter - Glory Cheema PHARM Tech - 09/19/2023 9:09 AM EDT Home care delivered called stating they will be faxing over request for incontinence supplies. Glory Briscoe [employer] Professor [facility] 09/19/2023,9:10 AM documented in this encounter Plan of Treatment Upcoming Encounters Date Type Department Care Team (Late st Contact Info) Description 11/14/2023 11:00 AM EDT Telemedicine Pharmacy, [address] [place] [address] [place] [address] 01/21/2024 8:40 AM EST Office Visit Family Practice [facility] [place] [address] Manjeet Mosley III, MD [address] [facility] [place] [address] 07/06/2024 8:30 AM EDT Nurse Only Ancillary [address] [place] [address] Gauri, Nurse [address] [place] [address] Health Maintenance Due Date Last Done Comments [...] Additional history exists CKD HGB USE SMARTSET 81058 10/06/202410/06, 06/14/2023, 01/30/2023, Additional history exists CKD PHOS USE SMARTSET 91338 10/06/202409/25, 01/30/2023, 01/03/2022, Additional history exists Albumin/Creatinine [...] filedocumented as of this encounter Care Teams Writer Producer Relationship Specialty Start Date End Date Manjeet Mosley III, MD [address] [place] [address] PCP - General 11/18/06 documented as of this encounter
--- OUTSIDE RECORDS SUMMARY | 2024-01-26 10:39 | External Medical Summary | Summary of Care ---
Author Name Unknown Organization [facility] Address [address] [place] [address] Phone [phone] Care Team Providers Care Sports Coordinator Name Role Phone Dimitri EMERY MD, Manjeet Adkins Primary Care Provider [phone] Encounter Details Date Type Department Care Team (Late st Contact Info) Description 11/18/2023 Telephone Pharmacy, [address] [place] [address] [facility] 200 [facility] [place] [address] Allergies Active Allergy Reactions Criticality Noted Date Comments Metformin Hydrochloride 11/14/2004 GI SE Salicylates 03/10/2002 documented as of this encounter (statuses as of 11/18/2023) Medications Medication Sig Dispensed Refills Start Date [...] 18 Each 06/07/2023 Active FreeStyle Sheree 2 [place] Device Use as directed. 1 Each 2 [...] than 8.0% ([facility]) Inject 30 Units under the skin daily. 30 mL 1 11/18/2023 Active documented as of this encounter (statuses as of 11/18/2023) Active Problems Problem Noted Date Diagnosed Date [...] as of this encounter (statuses as of 11/18/2023) Resolved Problems Problem Noted Date Diagnosed Date [...] inactive term ACTIVE CASE MANAGEMENT-Flaco Roberts RN [phone]. 05/05/2008 12/12/2009 DIAB RENAL MANIF ADULT 09/17/200707/02 [...] as of this encounter (statuses as of 11/18/2023) Immunizations Name Administration Dates Next Due COVID-19 mRNA, LNP-s, No Pre serve, 2-Dose Series ([employer]) 10/26/2020,10/05/2020 COVID-19, MRNA-LNP, 23-24, P F, 30 MCG/0.3 mL, 12 YRS AND ABOVE, IM ([facility]) 01/30/2023 Covid-19, Mrna, Lnp-s, Pf, B ivalent, [...] encounter Miscellaneous Notes * Telephone Encounter - Carol Paez RPh - 11/18/2023 11:21 AM EDT Patient's daughter Brenda brought by [employer] health tech to be downloaded. Call placed to reviewreadings. Carol Paez RPh, PharmD Clinical Pharmacist - Hatchery Worker [facility] 11/18/2023, 11:24 AM [phone] documented in this encounter Plan of Treatment Upcoming Encounters Date Type Department Care Team (Late st Contact Info) Description 11/25/2023 1:30 PM EDT Telemedicine Pharmacy, [address] [place] [address] [place] [address] 01/21/2024 8:40 AM EST Office Visit Family Practice [address] [place] [address] Manjeet Mosley III, MD 200 [facility] [place] [address] 07/06/2024 8:30 AM EDT Nurse Only Ancillary [address] [place] [address] [place], Nurse Annual [address] [place] [address] Health Maintenance Due Date Last Done Comments [...] Additional history exists CKD HGB USE SMARTSET 72731 10/06/202410/06, 06/14/2023, 01/30/2023, Additional history exists CKD PHOS USE SMARTSET 57249 10/06/202409/25, 01/30/2023, 01/03/2022, Additional history exists Albumin/Creatinine [...] filedocumented as of this encounter Care Teams Sports Coordinator Relationship Specialty Start Date End Date Manjeet Mosley III MD 200 [facility] [place] [address] PCP - General 11/18/06 documented as of this encounter
--- OUTSIDE RECORDS SUMMARY | 2024-01-26 10:39 | External Medical Summary | Summary of Care ---
Author Name Unknown Organization [facility] Address [address] [place] [address] Phone [phone] Care Team Providers Care Faculty I On Call Medical Assistant Name Role Phone Dimitri EMERY MD, Brian Adkins Primary Care Provider [phone] Reason for Visit * Reason Comments eRx-Medication Refill Encounter Details Date Type Department Care Team (Late st Contact Info) Description 11/15/2023 Refill Pharmacy, [address] [place] [address] Brian Savage III, MD [address] [place] [address] Type 2 diabetes mellitus with hemoglobin A1c goal of less than 8.0% ([facility]) Allergies Active Allergy Reactions Criticality Noted Date Comments Metformin Hydrochloride 11/14/2004 GI SE Salicylates 03/10/2002 documented as of this encounter (statuses as of 11/18/2023) Medications Medication Sig Dispensed Refills Start Date End Date Status ONETOUCH DELICA LANCING DEV MISCIndications:D M type 2, goal A1C 7-8 Use to test blood sugar 3 times daily 1 Device 0 2 Active ONETOUCH DELICA LANCETS FINE MISCIndications:D M type 2, goal A1C below 8.0 test blood sugar four times daily as directed; dx 250.00 100 Each 11 5 Active ONETOUCH ULTRA BLUE STRPIndications:D iabetes mellitus, type II ([facility]) Use up to four times a day as directed Dx 250.00 Insulin Dependent Sliding Scale 100 Strip 11 5 Active clobetasol propionate (TEMOVATE) 0.05 % ointmentIndicatio ns:Dermatitis Apply topically to affected area 2 times a day. To affected area for up to two weeks. 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 Do not cut, crush, or chew. 50 Capsule 1 3 Active Vitamin D High Potency 25 MCG (1000 UT) Oral Capsule (Cholecalciferol) TAKE 1 TABLET BY MOUTH EVERY OTHER DAY 30 Capsule 3 4 Active FreeStyle Sheree 2 SensorIndications :Type 2 diabetes mellitus with hemoglobin A1c goal of less than 7.5% ([facility]) Use as directed. Change every 14 days. 3 Each 4 Active Incontinence Brief Large As directed 18 Each 4 Active FreeStyle Sheree 2 [place] Device Use as directed. 1 Each 2 4 Active Terazosin HCl 2 MG Oral CapsuleIndication [...] ONE TABLET TWICE DAILY 180 Tablet 3 4 Active Furosemide 40 MG Oral Tablet (Lasix)Indication s:Edema, unspecified type TAKE 1 TABLET BY MOUTH ON SATURDAY, SATURDAY AND SATURDAY (MAY TAKE 1 DAILY FOR 3 DAYS IF NEEDED FOR SWELLING) 90 Tablet 1 4 Active Sertraline HCl 50 MG Oral Tablet (Zoloft) TAKE 1/2 TABLET EVERY DAY 45 Tablet 3 4 Active Gabapentin 100 MG Oral Capsule (Neurontin) TAKE 2 CAPSULES IN THE EVENING 180 Capsule 1 4 Active Metoprolol Tartrate 25 MG Oral Tablet (Lopressor)Indica tions:Stable angina (HCC) TAKE 1/2 TABLET TWICE DAILY 90 Tablet 3 4 Active Finasteride 5 MG Oral Tablet (Proscar)Indicati ons:BPH without obstruction/lower urinary tract symptoms TAKE ONE TABLET EVERY DAY 90 Tablet 3 4 Active Lantus SoloStar 100 UNIT/ML Subcutaneous Solution Pen-injector (Insulin Glargine Solostar)Indicati ons:Type 2 diabetes mellitus with hemoglobin A1c goal of less than 8.0% (HCC) Inject 30 Units under the skin daily. 30 mL 1 4 Active Insulin Glargine Solostar 100 UNIT/ML Subcutaneous Solution Pen-injector (Lantus SoloStar)Indicati ons:Type 2 diabetes mellitus with hemoglobin A1c goal of less than 8.0% (HCC) Inject 30 Units under the skin daily. 30 mL 1 4 11/18/19 24 Discontinued documented as of this encounter (statuses [...] inactive term ACTIVE CASE MANAGEMENT-Flaco Roberts RN [phone]. 05/05/2008 12/12/2009 DIAB RENAL MANIF ADULT 09/17/200707/02 [...] mRNA, LNP-s, No Pre serve, 2-Dose Series ([employer]) 10/26/2020,10/05/2020 COVID-19, MRNA-LNP, 23-24, P F, 30 MCG/0.3 mL, 12 YRS AND ABOVE, IM ([employer]) 01/30/2023 Covid-19, Mrna, Lnp-s, Pf, B ivalent, [...] encounter Miscellaneous Notes * Telephone Encounter - Uriel Paez [facility] - 11/18/2023 8:15 AM EDT Signed Prescriptions: Disp Refills Lantus SoloStar 100 UNIT/ML Subcutaneous S*30 mL 1 Sig: Inject 30 Units under the skin daily. Authorizing Provider: BRIAN SAVAGE III User: URIEL PAEZ * Telephone Encounter - Juani, [facility] Inbound - 11/17/2023 8:21 PM EDT Pending Prescriptions: Disp Refills Lantus SoloStar 100 UNIT/ML Subcutaneous S*30 mL 0 Sig: Inject 30 Units under the skin daily. documented in this encounter Plan of Treatment Upcoming Encounters Date Type Department Care Team (Late st Contact Info) Description 11/18/2023 11:00 AM EDT Office Visit Family Medicine [address] [place] [phone] Ayesha Mendez PA-C [address] [place] [address] [place] [address] 11/25/2023 1:30 PM EDT Telemedicine Pharmacy, [address] [place] [address] [place] [address] 01/21/2024 8:40 AM EST Office Visit Family Practice [address] [place] [address] Brian Savage III, MD 200 [facility] [place] [address] 07/06/2024 8:30 AM EDT Nurse Only Ancillary [address] [place] [address] Gauri, Nurse [facility] [address] [place] [address] [place] [address] Health Maintenance Due Date Last Done Comments [...] Additional history exists CKD HGB USE SMARTSET 39878 10/06/202410/06, 06/14/2023, 01/30/2023, Additional history exists CKD PHOS USE SMARTSET 72409 10/06/202409/25, 01/30/2023, 01/03/2022, Additional history exists Albumin/Creatinine [...] A1c goal of less than 8.0% (HCC) documented in this encounter Care Teams Faculty I On Call Medical Assistant Relationship Specialty Start Date End Date Brian Savage III, MD [address] [place] [address] PCP - General 11/18/06 documented as of this encounter
--- OUTSIDE RECORDS SUMMARY | 2024-01-26 10:39 | External Medical Summary | Summary of Care ---
Author Name Unknown Organization [facility] Address [address] [place] [address] Phone [phone] Care Team Providers Care Family Law Paralegal Name Role Phone Dimitri EMERY MD, Manjeet Adkins Primary Care Provider [phone] Reason for Visit * Reason Onset Date Comments Fax 09/19/2023 Encounter Details Date Type Department Care Team (Late st Contact Info) Description 09/19/[address] [facility] 200 [facility] [place] [address] Manjeet Mosley III, MD [address] [place] [address] Fax Allergies Active Allergy Reactions Criticality Noted Date Comments Metformin Hydrochloride 11/14/2004 GI SE Salicylates 03/10/2002 documented as of this encounter (statuses as of 11/23/2023) Medications Medication Sig Dispensed Refills Start Date [...] ULTRA BLUE STRPIndications: Diabetes mellitus, type II ([facility] [...] 0.2-0.5 % Ophthalmic Solution (Combigan)Indica tions:Stable angina ([facility]),DM type [...] 18 Each 4 Active FreeStyle Sheree 2 Dex[place] Device Use as directed. 1 Each 2 [...] as of this encounter (statuses as of 11/23/2023) Active Problems Problem Noted Date Diagnosed Date Type 2 diabetes mellitus wit h stage 3b chronic kidney disease, with long-term current use of insulin 06/14/2023 Inavailability of community resources 11/27/2022 Food insecurity 07/02/2022 Overview: Per Active [facility] Protocol Diabetic polyneuropathy asso ciated [...] as of this encounter (statuses as of 11/23/2023) Resolved Problems Problem Noted Date Diagnosed Date [...] inactive term ACTIVE CASE MANAGEMENT-Flaco Roberts RN [phone]. 05/05/2008 12/12/2009 DIAB RENAL MANIF ADULT 09/17/200707/02 [...] as of this encounter (statuses as of 11/23/2023) Immunizations Name Administration Dates Next Due COVID-19 mRNA, LNP-s, No Pre serve, 2-Dose Series ([employer]) 10/26/2020,10/05/2020 COVID-19, MRNA-LNP, 23-24, P F, 30 MCG/0.3 mL, 12 YRS AND ABOVE, IM ([employer]Comirnat[employer]) 01/30/2023 Covid-19, Mrna, Lnp-s, Pf, B ivalent, [...] No 07/03/2023 Does the household have a [facility] source of income? (Household [...] received by office. Name/Company sending fax: [employer] [facility] Delivered Checking on the status of request incomplete forms faxed back on 09/19/23; Please have provider initial and date the changes that were made on the form * Telephone Encounter - Nasim Gonzales OSA - 10/03/2023 11:43 AM EDT Vivian from [facility] Delivered calling checking on the status of this request. Vivian advised that the original order request from 08/27/23 & 09/09/23 did not have the provider's NPI number &the form needed to be initialed and dated. If you can please review and fax the request back to [phone]. Of note, there were two faxes sent on behalf of this patient - one was for the initial request, the second was for an increased supply order - the reference # for the request is [id number]. * Telephone Encounter - Tegan Banks RN [...] faxing over request for incontinence supplies. ThanksGlory Tour [facility] 09/19/2023,9:10 AM documented in this encounter Plan of Treatment Upcoming Encounters Date Type Department Care Team (Late st Contact Info) Description 11/25/2023 1:30 PM EDT Telemedicine Pharmacy, [address] [place] [address] [place] [address] 12/02/2023 2:40 PM EDT Telemedicine Pharmacy, [address] [place] [address] [place] [address] 01/21/2024 8:40 AM EST Office Visit Family Practice [address] [place] [address] Manjeet Mosley III, MD 200 [facility] [place] [address] 07/06/2024 8:30 AM EDT Nurse Only Ancillary [address] [place] [address] Gauri Nurse [address] [place] [address] Health Maintenance Due Date Last Done Comments [...] Additional history exists CKD HGB USE SMARTSET 97925 10/06/202410/06, 06/14/2023, 01/30/2023, Additional history exists CKD PHOS USE SMARTSET 38026 10/06/202409/25, 01/30/2023, 01/03/2022, Additional history exists Albumin/Creatinine [...] filedocumented as of this encounter Care Teams Family Law Paralegal Relationship Specialty Start Date End Date Greenwood III, Manjeet Adkins MD 200 [place] [address] PCP - General 11/18/06 documented as of this encounter
--- OUTSIDE RECORDS SUMMARY | 2024-01-26 10:39 | External Medical Summary | Summary of Care ---
Author Name Unknown Organization [facility] Address [address] [place] [address] Phone [phone] Care Team Providers Care Horticulture Worker Name Role Phone Dimitri EMERY MD, Manjeet Adkins Primary Care Provider [phone] Reason for Visit * Reason Onset Date Comments Fax 09/19/2023 Encounter Details Date Type Department Care Team (Late st Contact Info) Description 09/19/2023 Telephone Family Practice [facility] 200 [facility] [place] [address] Manjeet Mosley III, MD 200 [place] [address] Fax Allergies Active Allergy Reactions Criticality Noted Date Comments Metformin Hydrochloride 11/14/2004 GI SE Salicylates 03/10/2002 documented as of this encounter (statuses as of 11/06/2023) Medications Medication Sig Dispensed Refills Start Date [...] goal of less than 8.0% ([facility]) Use with insulins - 4 times [...] Ophthalmic Solution (Combigan)Indica tions:Stable angina ([facility]),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[facility]),Other specified glaucoma one drop to both eyes twice daily 10 mL 3 3 Active Insulin Lispro (1 Unit Dial) 100 UNIT/ML Subcutaneous Solution Pen-injector (HumaLOG KwikPen)Indicati ons:Type 2 diabetes mellitus with hemoglobin A1c goal of less than 8.0% ([facility]) inject 12 units under the skin [...] 18 Each 4 Active FreeStyle Sheree 2 [place] Device Use as directed. 1 Each 2 [...] as of this encounter (statuses as of 11/06/2023) Active Problems Problem Noted Date Diagnosed Date [...] as of this encounter (statuses as of 11/06/2023) Resolved Problems Problem Noted Date Diagnosed Date [...] inactive term ACTIVE CASE MANAGEMENT-Flaco Roberts RN [phone]. 05/05/2008 12/12/2009 DIAB RENAL MANIF ADULT 09/17/200707/02 [...] as of this encounter (statuses as of 11/06/2023) Immunizations Name Administration Dates Next Due COVID-19 mRNA, LNP-s, No Pre serve, 2-Dose Series ([employer]) 10/26/2020,10/05/2020 COVID-19, MRNA-LNP, 23-24, P F, 30 [...] received by office. Name/Company sending fax: Dil[facility] Delivered Checking on the status of request incomplete forms faxed back on 09/19/23; Please have provider initial and date the changes that were made on the form * Telephone Encounter - Nasim Gonzales OSA - 10/03/2023 11:43 AM EDT Vivain from [facility] Delivered calling checking on the status of this request. Vivian advised that the original order request from 08/27/23 & 09/09/23 did not have the provider's NPI number &the form needed to be initialed and dated. If you can please review and fax the request back to [phone]. Of note, there were two faxes sent on behalf of this patient - one was for the initial request, the second was for an increased supply order - the reference # for the request is [id number]. * Telephone Encounter - Tegan Banks RN [...] over request for incontinence supplies. Glory Briscoe Hogshead Weigher [facility] 09/19/2023,9:10 AM documented in this encounter Plan of Treatment Upcoming Encounters Date Type Department Care Team (Late st Contact Info) Description 11/14/2023 11:00 AM EDT Telemedicine Pharmacy, [address] [place] [address] [place] [address] 01/21/2024 8:40 AM EST Office Visit Family Practice [facility] 200 [facility] [place] [address] Manjeet Mosley III, MD 200 [facility] [place] [address] 07/06/2024 8:30 AM EDT Nurse Only Ancillary [address] [place] [address] Gauri, Nurse [address] [place] [address] Health Maintenance Due Date Last Done Comments DTap/Tdap Vaccines (1 - Tdap) 08/03/2008 08/02/2008 Zoster Vaccines (3 of 3) 06/12/2019 04/17/2019, 03/29 COVID-19 Vaccine (5 - 2022- season) 2023 01/30/2023, 03/01/2022, 10/26/2020, Additional history [...] Additional history exists CKD HGB USE SMARTSET 06273 10/06/202410/06, 06/14/2023, 01/30/2023, Additional history exists CKD PHOS USE SMARTSET 07516 10/06/202409/25, 01/30/2023, 01/03/2022, Additional history exists Albumin/Creatinine [...] filedocumented as of this encounter Care Teams Horticulture Worker Relationship Specialty Start Date End Date Manjeet Mosley III, MD 200 [facility] [place] [address] PCP - General 11/18/06 documented as of this encounter
--- OUTSIDE RECORDS SUMMARY | 2024-01-26 10:39 | External Medical Summary | Summary of Care ---
Author Name Unknown Organization [facility] Address [address] [place] [address] Phone [phone] Care Team Providers Care Spragger Name Role Phone Dimitri EMERY MD, Manjeet Adkins Primary Care Provider [phone] Encounter Details Date Type Department Care Team (Late st Contact Info) Description 11/18/2023 Telephone Family Practice [facility] 200 [facility] [address] Manjeet Mosley III, MD 200 [place] [address] Allergies Active Allergy Reactions Criticality Noted Date [...] 0.2-0.5 % Ophthalmic Solution (Combigan)Indicatio ns:Stable angina ([facility]),DM type [...] 18 Each 06/07/2023 Active FreeStyle Sheree 2 [place] Device Use as directed. 1 Each 2 [...] than 8.0% ([facility]) Inject 30 Units under the skin [...] inactive term ACTIVE CASE MANAGEMENT-Flaco Roberts RN [phone]. 05/05/2008 12/12/2009 DIAB RENAL MANIF ADULT 09/17/200707/02 [...] mRNA, LNP-s, No Pre serve, 2-Dose Series ([employer]) 10/26/2020,10/05/2020 COVID-19, MRNA-LNP, 23-24, P F, 30 MCG/0.3 mL, 12 YRS AND ABOVE, IM ([employer]) 01/30/2023 Covid-19, Mrna, Lnp-s, Pf, B ivalent, [...] Description 11/25/2023 1:30 PM EDT Telemedicine Pharmacy, [address] [place] [address] [place] [address] 01/21/2024 8:40 AM EST Office Visit [facility] 200 [facility] [place] [address] Manjeet Mosley III, MD [address] [place] [address] 07/06/2024 8:30 AM EDT Nurse Only Ancillary [address] [place] [address] [place], Nurse [address] [place] [address] Health Maintenance Due Date Last Done Comments [...] Additional history exists CKD HGB USE SMARTSET 64727 10/06/202410/06, 06/14/2023, 01/30/2023, Additional history exists CKD PHOS USE SMARTSET 86532 10/06/202409/25, 01/30/2023, 01/03/2022, Additional history exists Albumin/Creatinine [...] filedocumented as of this encounter Care Teams Spragger Relationship Specialty Start Date End Date Manjeet Mosley III, MD [address] [place] [address] PCP - General 11/18/06 documented as of this encounter
--- OUTSIDE RECORDS SUMMARY | 2024-01-26 10:40 | External Medical Summary | Summary of Care ---
Author Name Unknown Organization [facility] Address [address] [place] [address] Phone [phone] Care Team Providers Care Assorter Name Role Phone Dimitri EMERY MD, Manjeet Adkins Primary Care Provider [phone] Reason for Visit * Reason Comments Outpatient Testing Encounter Details Date Type Department Care Team (Late st Contact Info) Description 10/07/2023 10:00 AM EDT Laboratory Laboratory [facility] [address] [place] [address] [facility] 200 [facility] [place] [address] Type 2 diabetes mellitus with hemoglobin A1c goal of less than 7.5% (HCC); Diabetic polyneuropathy associated with type 2 diabetes mellitus (HCC); Hallucinations; terminal operator use of drug Allergies Active Allergy Reactions Criticality Noted Date Comments Metformin Hydrochloride 11/14/2004 GI SE Salicylates 03/10/2002 documented as of this encounter (statuses as of 10/07/2023) Medications Medication Sig Dispensed Refills Start Date End Date Status ONETOUCH DELICA LANCING DEV MISCIndications:DM type 2, goal A1C 7-8 Use to test blood sugar 3 times daily 1 Device 0 01/15/2012 Active ONETOUCH DELICA LANCETS FINE MISCIndications:DM type 2, goal A1C below 8.0 test blood sugar four times daily as directed; dx 250.00 100 Each 11 04/02/2014 Active ONETOUCH ULTRA BLUE STRPIndications:Diab etes mellitus, type II ([facility]) Use up to four times a day as directed Dx 250.00 Insulin Dependent Sliding Scale 100 Strip 11 05/14/2014 Active clobetasol propionate (TEMOVATE) 0.05 % ointmentIndications: Dermatitis Apply topically to affected area 2 times a day. To affected area for up to two weeks. 30 g 1 09/12/2015 Active BD Pen Needle Short U/F 31G X 8 MM (Insulin Pen Needle)Indications:T ype 2 diabetes mellitus with hemoglobin A1c goal of less than 8.0% ([facility]) Use with insulins - 4 times a day. DX e11.9 400 Each 09/13/2021 Active Triamcinolone Acetonide 0.1 % External Cream (Aristocort) Apply topically to affected area 2 times a day . To affected area. 60 g 5 09/13/2021 Active Nitroglycerin 0.4 MG Sublingual Tablet Sublingual (Nitrostat)Indicatio ns:Chest pain 1 tablet ever 5 min as needed with chest pain up to 3 doses in 15 minutes 25 Tablet 09/13/2021 Active Aspirin Low Dose 81 MG Oral Tablet Delayed Release (aspirin enteric coated)Indications:C hest pain TAKE ONE TABLET BY MOUTH EVERY DAY 30 Tablet 3 05/11/2022 Active Diclofenac Sodium 1 % External Gel (Voltaren) Apply topically to affected area 3 times a day. 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 Do not cut, crush, or chew. 50 Capsule 1 02/19/2023 Active Insulin Glargine Solostar 100 UNIT/ML Subcutaneous Solution Pen-injector (Lantus SoloStar)Indications :Type 2 diabetes mellitus with hemoglobin A1c goal of less than 8.0% ([facility]) Inject 30 Units under the skin daily. 30 mL 1 05/07/2023 Active Vitamin D High Potency 25 MCG (1000 UT) Oral Capsule (Cholecalciferol) TAKE 1 TABLET BY MOUTH EVERY OTHER DAY 30 Capsule 3 05/13/2023 Active Sertraline HCl 50 MG Oral Tablet (Zoloft) TAKE 1/2 TABLET EVERY DAY 45 Tablet 1 05/13/2023 Active Gabapentin 100 MG Oral Capsule (Neurontin) TAKE 2 CAPSULES IN THE EVENING 180 Capsule 1 05/13/2023 Active Metoprolol Tartrate 25 MG Oral Tablet (Lopressor)Indicatio ns:Stable angina (HCC) TAKE 1/2 TABLET TWICE DAILY 90 Tablet 1 05/13/2023 Active Finasteride 5 MG Oral Tablet (Proscar)Indications :BPH without obstruction/lower urinary tract symptoms TAKE ONE TABLET EVERY DAY 90 Tablet 1 05/13/2023 Active FreeStyle Sheree 2 SensorIndications:Ty pe 2 diabetes mellitus with hemoglobin A1c goal of less than 7.5% ([facility]) Use as directed. Change every 14 days. 3 Each 06/06/2023 Active Incontinence Brief Large As directed 18 Each 06/07/2023 Active FreeStyle Sheree 2 [place] Device Use as directed. 1 Each 2 06/07/2023 Active Terazosin HCl 2 MG Oral CapsuleIndications:E pedro, unspecified type TAKE ONE CAPSULE AT BEDTIME 90 Capsule 1 07/04/2023 Active Gabapentin 300 MG Oral Capsule (Neurontin) TAKE TWO CAPSULES BY MOUTH TWICE DAILY 360 Capsule 3 08/27/2023 Active Donepezil HCl 10 MG Oral Tablet (Aricept) TAKE ONE TABLET BY MOUTH EVERY DAY 90 Tablet 3 08/27/2023 Active Rosuvastatin Calcium 20 MG Oral Tablet (Crestor)Indications :Dyslipidemia, goal LDL below 100 TAKE ONE TABLET BY MOUTH EVERY DAY 90 Tablet 3 08/27/2023 Active Omeprazole 20 MG Oral Capsule Delayed Release (PriLOSEC) TAKE ONE CAPSULE BY MOUTH EVERY DAY 90 Capsule 3 08/27/2023 Active guaiFENesin ER 600 MG Oral Tablet Extended Release 12 Hour (Mucinex)Indications :Bronchitis, complicated Take 1 Tablet by mouth 2 times a day as needed for Congestion. Take with plenty of water. Do not cut, crush or chew 40 Tablet 09/12/2023 Active Famotidine 20 MG Oral Tablet (Pepcid) TAKE ONE TABLET TWICE DAILY 180 Tablet 3 10/01/2023 Active documented as of this encounter (statuses as of 10/07/2023) Active Problems Problem Noted Date Diagnosed Date [...] as of this encounter (statuses as of 10/07/2023) Resolved Problems Problem Noted Date Diagnosed Date [...] inactive term ACTIVE CASE MANAGEMENT-Flaco Roberts RN [phone]. 05/05/2008 12/12/2009 DIAB RENAL MANIF ADULT 09/17/200707/02 [...] as of this encounter (statuses as of 10/07/2023) Immunizations Name Administration Dates Next Due COVID-19 mRNA, LNP-s, No Pre serve, 2-Dose Series ([employer]) 10/26/2020,10/05/2020 COVID-19, MRNA-LNP, 23-24, P F, 30 MCG/0.3 mL, 12 YRS AND ABOVE, IM ([employer]-ComirnatLEHR) 01/30/2023 Covid-19, Mrna, Lnp-s, Pf, B ivalent, [...] lent, No Preserve, IM 11/07/2015,12/06/2014 Seasonal Influenza, Split, I IV3, With Preserve, Inj 11/19/2013,01/02/2013,11/27/2011,2010,12/01/2009,03/07/2009,01/07/2008,1 ,12/12/2005 Seasonal Influenza, Trivalen t, Adjuvanted, 65+ yrs 01/26/2019 TD, Preservative Free 08/02/2008 Varicella Zoster [...] Description 11/14/2023 11:00 AM EDT Telemedicine Pharmacy, [address] [place] [address] [place] [address] 01/21/2024 8:40 AM EST Office Visit Family [facility] [address] [facility] [place] [address] Manjeet Mosley III, MD [address] [place] [address] 07/06/2024 8:30 AM EDT Nurse Only Ancillary [address] [place] [address] [place], Nurse [address] [place] [address] Pending Results Name Type Priority Associated Diagnoses Date /Time HEMOGLOBIN A1C Lab Routine Type 2 diabetes mellitus with hemoglobin A1c goal of less than 7.5% (HCC) 10/07/2023 9:51 AM EDT PHOSPHORUS Lab Routine Diabetic polyneuropathy associated with type 2 diabetes mellitus (HCC) Hallucinations 10/07/2023 9:51 AM EDT COMPREHENSIVE METABOLIC PANEL Lab Routine Diabetic polyneuropathy associated with type 2 diabetes mellitus (HCC) Hallucinations 10/07/2023 9:51 AM EDT VITAMIN B12 Lab Routine Diabetic polyneuropathy associated with type 2 diabetes mellitus (HCC) Hallucinations terminal operator use of drug 10/07/2023 9:51 AM EDT ERYTHROCYTE SEDIMENTATION RATE (ESR) Lab Routine Diabetic polyneuropathy associated with type 2 diabetes mellitus (HCC) Hallucinations 10/07/2023 9:51 AM EDT MAGNESIUM Lab Routine Diabetic polyneuropathy associated with type 2 diabetes mellitus (HCC) Hallucinations 10/07/2023 9:51 AM EDT Health Maintenance Due Date Last Done Comments DTaP,Tdap,and Td Vaccines (1 - Tdap) 08/03/2008 08/02/2008 Zoster Vaccines (3 of 3) 06/12/2019 04/17/2019, 03/29 Albumin/Creatinine Ratio 09/18/2022 022, 08/23/2020, 01/26/2019, Additional history exists COVID-19 Vaccine ( season) 2023 01/30/2023, 03/01/2022, 10/26/2020, Additional history exists Influenza Vaccine (FLU shot) (#1) 2023 11/27/2022, 01/03/2022, 01/25/2021, Additional history exists HbA1c 12/14/2023 06/14/2023, 07/2022, 07/31/2022, Additional history exists CKD PHOS USE SMARTSET 97435 01/31/202407/2022, 01/03/2022, 01/25/2021, Additional history exists Diabetic Foot Exam 06/03/2024 06/04/2023 (D one elsewhere), 06/28/2022, 02/06/2021, Additional history exists CKD HGB USE SMARTSET 65954 06/13/202410/06, 06/14/2023, 01/30/2023, Additional history exists Adult Wellness Visit 07/02/2024 07/03/2023, 06/28/2022, 06/26/2021 Depression Screening 07/02/2024 07/03/2023, 07/03/19 24 Diabetic Eye Exam 07/31/2024 08/01/2023, , 06/29/2021, Additional history exists Pneumococcal Vaccine: 65+ Years [...] Not on filedocumented as of this encounter Procedures Procedure Name Priority Date/Time Associated Diagnosis Comments CBC Routine 10/07/2023 9:51 AM EDT Diabetic polyneuropathy associated with type 2 diabetes mellitus (HCC) Hallucinations documented in this encounter Results * (ABNORMAL) CBC (10/07/2023 9:51 AM EDT) WBC 6.74 4.00 - 10.80 K/uL 10/07/2023 9:56 AM EDT [facility] [place] 56- RBC 3.74 4.50 - 5.25 M/uL 10/07/2023 9:56 AM EDT [facility] [place] 56- HGB 11.1(L) 14.0 - 16.8 g/dL 10/07/2023 9:56 AM EDT [facility] [place] 56- HCT 35.4(L) 40.0 - 48.4 % 10/07/2023 9:56 AM EDT [facility] [place] 56- MCV 94.7 82.0 - 99.5 fL 10/07/2023 9:56 AM EDT [facility] [place] 56- MCH 29.7 27.0 - 34.0 pg 10/07/2023 9:56 AM EDT [facility] [place] 56- MCHC 31.4 32.0 - 36.0 g/dL 10/07/2023 9:56 AM EDT [facility] [place] 56- RDW 14.3 11.5 - 15.5 % 10/07/2023 9:56 AM EDT [facility] [place] 56- PLT 224 140 - 400 K/uL 10/07/2023 9:56 AM EDT [facility] [place] 56- MPV 10.5 6.6 - 11.1 fL 10/07/2023 9:56 AM EDT [facility] [place] 56- Blood Venous blood specimen / Unknown Venipuncture / Unknown 10/07/2023 9:51 AM EDT 10/07/2023 9:51 AM EDT Manjeet Mosley III, MD LAB BLOOD ORDERABLE [facility] 56-02 200 [place] [address] documented in this encounter Visit Diagnoses Diagnosis Type 2 diabetes mellitus with hemoglobin A1c goal of less than 7.5% (HCC) Diabetic polyneuropathy associated with type 2 diabetes mellitus (HCC) Hallucinations [facility] use of drug Encounter for long-term (current) use of other medications documented in this encounter Care Teams Assorter Relationship Specialty Start Date End Date [facility]je[facility] III, MD [facility] [address] PCP - General 11/18/06 documented as of this encounter
--- OUTSIDE RECORDS SUMMARY | 2024-01-26 10:40 | External Medical Summary | Summary of Care ---
Author Name Unknown Organization [facility] Address [address] [place] [address] Phone [phone] Care Team Providers Care Automatic Lathe Operator Name Role Phone Dimitri EMERY MD, Manjeet Adkins Primary Care Provider [phone] Reason for Visit * Reason Onset Date Comments Referral 10/18/2023 Encounter Details Date Type Department Care Team (Late st Contact Info) Description 10/18/2023 Telephone Family Practice [facility] [address] [place] [address] Manjeet Mosley III, MD [address] [place] [address] Referral Allergies Active Allergy Reactions Criticality Noted Date Comments Metformin Hydrochloride 11/14/2004 GI SE Salicylates 03/10/2002 documented as of this encounter (statuses as of 10/18/2023) Medications Medication Sig Dispensed Refills Start Date [...] ULTRA BLUE STRPIndications:Diab etes mellitus, type II (HCC) Use up to [...] to SHOULDER 100 g 8 04/05/2022 Active Furosemide 40 MG Oral Tablet [...] 18 Each 06/07/2023 Active FreeStyle Sheree 2 [place] Device Use as directed. 1 Each 2 [...] as of this encounter (statuses as of 10/18/2023) Active Problems Problem Noted Date Diagnosed Date [...] as of this encounter (statuses as of 10/18/2023) Resolved Problems Problem Noted Date Diagnosed Date [...] inactive term ACTIVE CASE MANAGEMENT-Flaco Roberts RN [phone]. 05/05/2008 12/12/2009 DIAB RENAL MANIF ADULT 09/17/200707/02 [...] as of this encounter (statuses as of 10/18/2023) Immunizations Name Administration Dates Next Due COVID-19 mRNA, LNP-s, No Pre serve, 2-Dose Series ([employer]) 10/26/2020,10/05/2020 COVID-19, MRNA-LNP, 23-24, P F, 30 MCG/0.3 mL, 12 YRS AND ABOVE, IM ([employer]irnat[employer]) 01/30/2023 Covid-19, Mrna, Lnp-s, Pf, B ivalent, [...] encounter Miscellaneous Notes * Telephone Encounter - Annamarie Barry OSA - 10/18/2023 11:27 AM EDT Patient Home care order was signed and faxed with success on 10/18/23 at 11:06 am. Contacted Home care office and they stated they have not received it yet will follow up in 4 days if they had not received it. * Telephone Encounter - Annamarie Barry OSA - 10/18/2023 11:04 AM EDT Patient's Home care order was signed by Dr. Zavala. documented in this encounter Plan of Treatment Upcoming Encounters Date Type Department Care Team (Late st Contact Info) Description 11/14/2023 11:00 AM EDT Telemedicine Pharmacy, [address] [place] [address] [place] [address] 01/21/2024 8:40 AM EST Office Visit Family Practice [facility] [place] [place] [address] Manjeet Mosley III, MD 200 [facility] [place] [address] 07/06/2024 8:30 AM EDT Nurse Only Ancillary [address] [place] [address] [place], Nurse [address] [place] [address] Health Maintenance Due Date Last Done Comments DTaP,Tdap,and Td Vaccines (1 - Tdap) 08/03/2008 08/02/2008 Zoster Vaccines (3 of 3) 06/12/2019 04/17/2019, 03/29 COVID-19 Vaccine (5 - 2022-24 season) 2023 01/30/2023, 03/01/2022, 10/26/2020, Additional history [...] Additional history exists CKD HGB USE SMARTSET 43180 10/06/202410/06, 06/14/2023, 01/30/2023, Additional history exists CKD PHOS USE SMARTSET 65795 10/06/202409/25, 01/30/2023, 01/03/2022, Additional history exists Albumin/Creatinine [...] filedocumented as of this encounter Care Teams Automatic Lathe Operator Relationship Specialty Start Date End Date Manjeet Mosley III, MD 200 [facility] [place] [address] PCP - General 11/18/06 documented as of this encounter
--- OUTSIDE RECORDS SUMMARY | 2024-01-26 10:40 | External Medical Summary | Summary of Care ---
Author Name Unknown Organization [facility] Address [address] [place] [address] Phone [phone] Care Team Providers Care Epic Trainer Name Role Phone Dimitri EMERY MD, Manjeet Adkins Primary Care Provider [phone] Reason for Visit * Reason Comments Acute Encounter Details Date Type Department Care Team (Late st Contact Info) Description 11/04/2023 2:40 PM EDT Office Visit Family Medicine [address] [place] [address] Maureen Ocampo [address] [place] [address] Community acquired pneumonia of left lower lobe of lung* Allergies Active Allergy Reactions Criticality Noted Date Comments Metformin Hydrochloride 11/14/2004 GI SE Salicylates 03/10/2002 documented as of this encounter (statuses as of 11/04/2023) Medications Medication Sig Dispensed Refills Start Date End Date Status OoyalaTOUCH DELICA LANCING DEV MISCIndications:DM type 2, goal A1C 7-8 Use to test blood sugar 3 times daily 1 Device 0 01/15/2012 Active OoyalaTOUCH DELICA LANCETS FINE MISCIndications:DM type 2, goal A1C below 8.0 test blood sugar four times daily as directed; dx 250.00 100 Each 11 04/02/2014 Active ONETOUCH ULTRA BLUE STRPIndications:Di abetes mellitus, type II ([facility]) Use up to four times a day as directed Dx 250.00 Insulin Dependent Sliding Scale 100 Strip 11 05/14/2014 Active clobetasol propionate (TEMOVATE) 0.05 % ointmentIndication s:Dermatitis Apply topically to affected area 2 times a day. To affected area for up to two weeks. 30 g 1 09/12/2015 Active BD Pen Needle Short U/F 31G X 8 MM (Insulin Pen Needle)Indications :Type 2 diabetes mellitus with hemoglobin A1c goal of less than 8.0% ([facility]) Use with insulins - 4 times a day. DX e11.9 400 Each 3 09/13/2021 Active Triamcinolone Acetonide 0.1 % External Cream (Aristocort) Apply topically to affected area 2 times a day . To affected area. 60 g 5 09/13/2021 Active Nitroglycerin 0.4 MG Sublingual Tablet Sublingual (Nitrostat)Indicat ions:Chest pain 1 tablet ever 5 min as needed with chest pain up to 3 doses in 15 minutes 25 Tablet 11 09/13/2021 Active Aspirin Low Dose 81 MG Oral Tablet Delayed Release (aspirin enteric coated)Indications :Chest pain TAKE ONE TABLET BY MOUTH EVERY DAY 30 Tablet 3 05/11/2022 Active Diclofenac Sodium 1 % External Gel (Voltaren) Apply topically to affected area 3 times a day. 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 Do not cut, crush, or chew. 50 Capsule 1 02/19/2023 Active Insulin Glargine Solostar 100 UNIT/ML Subcutaneous Solution Pen-injector (Lantus SoloStar)Indicatio ns:Type 2 diabetes mellitus with hemoglobin A1c goal of less than 8.0% (HCC) Inject 30 Units under the skin daily. 30 mL 1 05/07/2023 Active Vitamin D High Potency 25 MCG (1000 UT) Oral Capsule (Cholecalciferol) TAKE 1 TABLET BY MOUTH EVERY OTHER DAY 30 Capsule 3 05/13/2023 Active FreeStyle Sheree 2 SensorIndications: Type 2 diabetes mellitus with hemoglobin A1c goal of less than 7.5% (HCC) Use as directed. Change every 14 days. 3 Each 06/06/2023 Active Incontinence Brief Large As directed 18 Each 06/07/2023 Active FreeStyle Sheree 2 [place] Device Use as directed. 1 Each 2 06/07/2023 Active Terazosin HCl 2 MG Oral CapsuleIndications :Edema, unspecified type TAKE ONE CAPSULE AT BEDTIME 90 Capsule 1 07/04/2023 Active Gabapentin 300 MG Oral Capsule (Neurontin) TAKE TWO CAPSULES BY MOUTH TWICE DAILY 360 Capsule 3 08/27/2023 Active Donepezil HCl 10 MG Oral Tablet (Aricept) TAKE ONE TABLET BY MOUTH EVERY DAY 90 Tablet 3 08/27/2023 Active Rosuvastatin Calcium 20 MG Oral Tablet (Crestor)Indicatio ns:Dyslipidemia, goal LDL below 100 TAKE ONE TABLET BY MOUTH EVERY DAY 90 Tablet 3 08/27/2023 Active Omeprazole 20 MG Oral Capsule Delayed Release (PriLOSEC) TAKE ONE CAPSULE BY MOUTH EVERY DAY 90 Capsule 3 08/27/2023 Active guaiFENesin ER 600 MG Oral Tablet Extended Release 12 Hour (Mucinex)Indicatio ns:Bronchitis, complicated Take 1 Tablet by mouth 2 times a day as needed for Congestion. Take with plenty of water. Do not cut, crush or chew 40 Tablet 09/12/2023 Active Additional Information Patient not taking.Reported on 11/04/2023 Famotidine 20 MG Oral Tablet (Pepcid) TAKE ONE TABLET TWICE DAILY 180 Tablet 3 10/01/2023 Active Furosemide 40 MG Oral Tablet (Lasix)Indications :Edema, unspecified type TAKE 1 TABLET BY MOUTH [...] Active Metoprolol Tartrate 25 MG Oral Tablet (Lopressor)Indicat ions:Stable angina (HCC) TAKE 1/2 TABLET TWICE DAILY 90 Tablet 3 10/25/2023 Active Finasteride 5 MG Oral Tablet (Proscar)Indicatio ns:BPH without obstruction/lower urinary tract symptoms TAKE ONE TABLET EVERY DAY 90 Tablet 3 10/25/2023 Active Amoxicillin-Pot Clavulanate 500-125 MG Oral Tablet (Augmentin)Indicat ions:Community acquired pneumonia of left lower lobe of lung Take 1 Tablet by mouth every 12 hours for 7 days. 14 Tablet 11/04/2023 11/11/2023 Active documented as of this encounter (statuses as of 11/04/2023) Active Problems Problem Noted Date Diagnosed Date [...] as of this encounter (statuses as of 11/04/2023) Resolved Problems Problem Noted Date Diagnosed Date [...] inactive term ACTIVE CASE MANAGEMENT-Flaco Roberts RN [phone]. 05/05/2008 12/12/2009 DIAB RENAL MANIF ADULT 09/17/200707/02 [...] as of this encounter (statuses as of 11/04/2023) Immunizations Name Administration Dates Next Due COVID-19 mRNA, LNP-s, No Pre serve, 2-Dose Series ([employer]) 10/26/2020,10/05/2020 COVID-19, MRNA-LNP, 23-24, P F, 30 MCG/0.3 mL, 12 YRS AND ABOVE, IM ([facility]) 01/30/2023 Covid-19, Mrna, Lnp-s, Pf, B ivalent, [...] Date Smoking Tobacco: Never Smokeless Tobacco: Never Tobacco Cessation:Counseling Given: Not Answered Alcohol Use Standard Drinks/Week Comments No 0 [...] on file documented as of this encounter Last Filed Vital Signs Vital Sign Reading Time Taken Comments Blood Pressure 102/56 11/04/2023 2:25 PM EDT Pulse 59 11/04/2023 2:25 PM EDT Temperature 36.7 C (98 F) 11/04/2023 2:25 PM EDT Respiratory Rate 16 11/04/2023 2:25 PM EDT Oxygen Saturation 93% 11/04/2023 2:25 PM EDT Inhaled Oxygen Concentration - - Weight 72.6 kg (160 lb) 11/04/2023 2:25 PM EDT Height - - Body Mass Index 30.23 07/03/2023 8:37 AM EDT documented in this encounter Nursing Notes * Nivia Brooks LPN - 11/04/2023 2:22 PM EDT Cough, productive yellow phlegm for 4 days. documented in this encounter Plan of Treatment Upcoming Encounters Date Type Department Care Team (Late st Contact Info) Description 11/14/2023 11:00 AM EDT Telemedicine Pharmacy, [address] [place] [address] [place] [address] 01/21/2024 8:40 AM EST Office Visit Family Practice [facility] [place] [address] [facility] [place] [address] Manjeet Mosley III, MD 200 [facility] [place] [address] 07/06/2024 8:30 AM EDT Nurse Only Ancillary [address] [place] [address] [place], Nurse [address] [place] [address] Health Maintenance Due Date Last Done Comments DTap/Tdap Vaccines (1 - Tdap) 08/03/2008 08/02/2008 Zoster Vaccines (3 of 3) 06/12/2019 04/17/2019, 03/29 COVID-19 Vaccine ( - 2022- season) 2023 01/30/2023, 03/01/2022, 10/26/2020, [...] Additional history exists CKD HGB USE SMARTSET 67989 10/06/202410/06, 06/14/2023, 01/30/2023, Additional history exists CKD PHOS USE SMARTSET 23560 10/06/202409/25, 01/30/2023, 01/03/2022, Additional history exists Albumin/Creatinine [...] as of this encounter Visit Diagnoses Diagnosis Community acquired pneumonia of left lower lobe of lung- Primary documented in this encounter Care Teams Epic Trainer Relationship Specialty Start Date End Date Manjeet Mosley III, MD [address] [place] [address] PCP - General 11/18/06 documented as of this encounter
--- OUTSIDE RECORDS SUMMARY | 2024-01-26 10:40 | External Medical Summary | Summary of Care ---
Author Name Unknown Organization [facility] Address [address] [place] [address] Phone [phone] Care Team Providers Care Senior Telecommunications Engineer Name Role Phone Dimitri EMERY MD, Manjeet Adkins Primary Care Provider [phone] Reason for Visit * Reason Onset Date Comments Fax 09/19/2023 Encounter Details Date Type Department Care Team (Late st Contact Info) Description 09/19/2023 Telephone Family Practice [facility] 200 [facility] [place] [address] Manjeet Mosley III, MD [address] [place] [address] Fax Allergies Active Allergy Reactions Criticality Noted [...] 11 5 Active ONETOUCH ULTRA BLUE STRPIndications:D luz marina mellitus, type II ([facility]) Use up to four times a day [...] to SHOULDER 100 g 8 3 Active Furosemide 40 MG Oral Tablet (Lasix)Indication s:Edema, unspecified type TAKE 1 TABLET BY MOUTH ON SATURDAY, SATURDAY AND SATURDAY (MAY TAKE 1 DAILY FOR 3 DAYS IF NEEDEED FOR SWELLING) 90 Tablet 3 3 Active Brimonidine Tartrate-Timolol 0.2-0.5 % Ophthalmic Solution (Combigan)Indicat ions:Stable angina ([facility]),DM [...] 3 Active Benzonatate 100 MG Oral Capsule (Tessalon [...] OTHER DAY 30 Capsule 3 4 Active Sertraline HCl 50 MG Oral Tablet (Zoloft) TAKE 1/2 TABLET EVERY DAY 45 Tablet 1 4 Active Gabapentin 100 MG Oral Capsule (Neurontin) TAKE 2 CAPSULES IN THE EVENING 180 Capsule 1 4 Active Metoprolol Tartrate 25 MG Oral Tablet (Lopressor)Indica tions:Stable angina (HCC) TAKE 1/2 TABLET TWICE DAILY 90 Tablet 1 4 Active Finasteride 5 MG Oral Tablet (Proscar)Indicati ons:BPH without obstruction/lower urinary tract symptoms TAKE ONE TABLET EVERY DAY 90 Tablet 1 4 Active FreeStyle Sheree 2 SensorIndications :Type 2 diabetes mellitus with hemoglobin A1c goal of less than 7.5% (HCC) Use as directed. Change every 14 days. 3 Each 4 Active Incontinence Brief Large As directed 18 Each 4 Active FreeStyle Sheree 2 [place] Device Use as directed. 1 Each 2 [...] crush or chew 40 Tablet 4 Active Famotidine 20 MG Oral Tablet (Pepcid) TAKE ONE TABLET BY MOUTH TWICE DAILY 180 Tablet 3 3 10/01/19 24 Discontinued Cefuroxime Axetil 500 MG Oral Tablet (Ceftin)Indicatio ns:Bronchitis, complicated,Hyper trophic toenail,Celluliti s of great toe of right foot Take [...] inactive term ACTIVE CASE MANAGEMENT-Flaco Roberts RN [phone]. 05/05/2008 12/12/2009 DIAB RENAL MANIF ADULT 09/17/200707/02 [...] mRNA, LNP-s, No Pre serve, 2-Dose Series ([employer]) 10/26/2020,10/05/2020 COVID-19, MRNA-LNP, 23-24, P F, 30 MCG/0.3 mL, 12 YRS AND ABOVE, IM ([employer]ir[employer]) 01/30/2023 Covid-19, Mrna, Lnp-s, Pf, B ivalent, [...] received by office. Name/Company sending fax: [facility] Checking on the status of request incomplete forms faxed back on 09/19/23; Please have provider initial and date the changes that were made on the form * Telephone Encounter - Nasim Gonzales OSA - 10/03/2023 11:43 AM EDT Vivian from [facility] calling checking on the status of this request. Vivian advised that the original order request from 08/27/23 & 09/09/23 did not have the provider's NPI number &the form needed to be initialed and dated. If you can please review and fax the request back to [phone]. Of note, there were two faxes sent on behalf of this patient - one was for the initial request, the second was for an increased supply order - the reference # for the request is [id number]. * Telephone Encounter - Tegan Banks RN [...] request for incontinence supplies. Thanks, Glory Cheema Senior Office Support Assistant [facility] 09/19/2023,9:10 AM documented in this encounter Plan of Treatment Upcoming Encounters Date Type Department Care Team (Late st Contact Info) Description 11/14/2023 11:00 AM EDT Telemedicine Pharmacy, [address] [place] [address] [place] [address] 01/21/2024 8:40 AM EST Office Visit Family Practice [facility] [place] 200 [facility] [place] [address] Manjeet Mosley III, MD 200 [facility] [place] [address] 07/06/2024 8:30 AM EDT Nurse Only Ancillary [address] [place] [address] [place], Nurse [address] [place] [address] Health Maintenance Due Date Last Done Comments [...] Additional history exists CKD HGB USE SMARTSET 69968 10/06/202410/06, 06/14/2023, 01/30/2023, Additional history exists CKD PHOS USE SMARTSET 94016 10/06/202409/25, 01/30/2023, 01/03/2022, Additional history exists Albumin/Creatinine [...] filedocumented as of this encounter Care Teams Senior Telecommunications Engineer Relationship Specialty Start Date End Date Manjeet Mosley III, MD [address] [place] [address] PCP - General 11/18/06 documented as of this encounter
--- OUTSIDE RECORDS SUMMARY | 2024-01-26 10:40 | External Medical Summary | Summary of Care ---
Author Name Unknown Organization [facility] Address [address] [place] [address] Phone [phone] Care Team Providers Care Blender Machine Operator Name Role Phone Dimitri EMERY MD, Manjeet Adkins Primary Care Provider [phone] Reason for Visit * Reason Onset Date Comments Referral 10/18/2023 Encounter Details Date Type Department Care Team (Late st Contact Info) Description 10/18/2023 Telephone Family Practice [facility] [address] [place] [address] Manjeet Mosley III, MD 200 [place] [address] Referral Allergies Active Allergy Reactions Criticality Noted [...] hemoglobin A1c goal of less than 8.0% ([facility]) Use with insulins - 4 times [...] 0.2-0.5 % Ophthalmic Solution (Combigan)Indication s:Stable angina ([facility]),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 1 Each 2 [...] inactive term ACTIVE CASE MANAGEMENT-Flaco Roberts RN [phone]. 05/05/2008 12/12/2009 DIAB RENAL MANIF ADULT 09/17/200707/02 [...] mRNA, LNP-s, No Pre serve, 2-Dose Series ([employer]) 10/26/2020,10/05/2020 COVID-19, MRNA-LNP, 23-24, P F, 30 MCG/0.3 mL, 12 YRS AND ABOVE, IM ([employer]) 01/30/2023 Covid-19, Mrna, Lnp-s, Pf, B ivalent, [...] Encounter - Annamarie Barry OSA - 10/18/2023 10:36 AM EDT Received re fax from [facility]. * Telephone Encounter - Annamarie Barry OSA - 10/18/2023 9:58 AM EDT Contacted [facility] about re faxing orders as talked with nurses and they stated they could not find them. Home Care will be re faxing to [phone] Fax and they will have ATTN Annamarie. documented in this encounter Plan of Treatment Upcoming Encounters Date Type Department Care Team (Late st Contact Info) Description 11/14/2023 11:00 AM EDT Telemedicine Pharmacy, [address] [place] [address] [place] [address] 01/21/2024 8:40 AM EST Office Visit Family Practice [facility] [address] [place] [address] [place], [place] 200 [facility] [place] [address] 07/06/2024 8:30 AM EDT Nurse Only Ancillary [address] [place] [address] [place], Nurse [address] [place] [address] Health Maintenance Due Date Last Done Comments [...] Additional history exists CKD HGB USE SMARTSET 26414 10/06/202410/06, 06/14/2023, 01/30/2023, Additional history exists CKD PHOS USE SMARTSET 88000 10/06/202409/25, 01/30/2023, 01/03/2022, Additional history exists Albumin/Creatinine [...] filedocumented as of this encounter Care Teams Blender Machine Operator Relationship Specialty Start Date End Date Manjeet Mosley III, MD 200 [facility] [place] [address] PCP - General 11/18/06 documented as of this encounter
--- OUTSIDE RECORDS SUMMARY | 2024-01-26 10:40 | External Medical Summary | Summary of Care ---
Author Name Unknown Organization [facility] Address [address] [place] [address] Phone [phone] Care Team Providers Care Diesel Engineer Name Role Phone Dimitri EMERY MD, Brian Adkins Primary Care Provider [phone] Reason for Visit * Reason Comments eRx-Medication Refill Encounter Details Date Type Department Care Team (Late st Contact Info) Description 10/23/2023 Refill Family Practice [facility] [address] [place] [address] Brian Savage III, MD [address] [place] [address] Stable angina (HCC); BPH without obstruction/lower urinary tract symptoms Allergies Active Allergy Reactions Criticality Noted Date Comments Metformin Hydrochloride 11/14/2004 GI SE Salicylates 03/10/2002 documented as of this encounter (statuses as of 10/29/2023) Medications Medication Sig Dispensed Refills Start Date [...] STRPIndications:D iabetes mellitus, type II ([facility]) Use up to four times a day [...] goal of less than 8.0% ([facility]) Use with insulins - 4 times a [...] Ophthalmic Solution (Combigan)Indicat ions:Stable angina ([facility]),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[facility]),Other specified glaucoma one drop to both eyes twice daily 10 mL 3 2022 Active Insulin Lispro (1 Unit Dial) 100 UNIT/ML Subcutaneous Solution Pen-injector (HumaLOG KwikPen)Indicatio ns:Type 2 diabetes mellitus with hemoglobin A1c goal of less than 8.0% ([facility]) inject 12 units under the skin before breakfast, 10 units before lunch nad 13 units before supper 45 mL 1 12/18/2022 Active Benzonatate 100 MG Oral Capsule (Tessalvilma [...] 18 Each 06/07/2023 Active FreeStyle Sheree 2 [place] Device Use as directed. 1 Each 2 [...] TWICE DAILY 180 Tablet 3 10/01/2023 Active Sertraline HCl 50 MG Oral Tablet [...] EVERY DAY 90 Tablet 3 10/25/2023 Active Furosemide 40 MG Oral Tablet (Lasix)Indication s:Edema, unspecified type TAKE 1 TABLET BY MOUTH ON SATURDAY, SATURDAY AND SATURDAY (MAY TAKE 1 DAILY FOR 3 DAYS IF NEEDEED FOR SWELLING) 90 Tablet 3 10/01/2022 4 Discontinued Sertraline HCl 50 MG Oral Tablet (Zoloft) TAKE 1/2 TABLET EVERY DAY 45 Tablet 1 05/13/2023 4 Discontinued Gabapentin 100 MG Oral Capsule (Neurontin) TAKE 2 CAPSULES IN THE EVENING 180 Capsule 1 05/13/2023 4 Discontinued Metoprolol Tartrate 25 MG Oral Tablet (Lopressor)Indica tions:Stable angina (HCC) TAKE 1/2 TABLET TWICE DAILY 90 Tablet 1 05/13/2023 4 Discontinued Finasteride 5 MG Oral Tablet (Proscar)Indicati ons:BPH without obstruction/lower urinary tract symptoms TAKE ONE TABLET EVERY DAY 90 Tablet 1 05/13/2023 4 Discontinued documented as of this encounter (statuses as of 10/29/2023) Active Problems Problem Noted Date Diagnosed Date Type 2 diabetes mellitus wit h stage 3b chronic kidney disease, with long-term current use of insulin 06/14/2023 Inavailability of community resources 11/27/2022 Food insecurity 07/02/2022 Overview: Per [facility] Protocol Diabetic polyneuropathy asso ciated [...] as of this encounter (statuses as of 10/29/2023) Resolved Problems Problem Noted Date Diagnosed Date [...] inactive term ACTIVE CASE MANAGEMENT-Flaco Roberts RN [phone]. 05/05/2008 12/12/2009 DIAB RENAL MANIF ADULT 09/17/200707/02 [...] as of this encounter (statuses as of 10/29/2023) Immunizations Name Administration Dates Next Due COVID-19 mRNA, LNP-s, No Pre serve, 2-Dose Series (Pfizer) 10/26/2020,10/05/2020 COVID-19, MRNA-LNP, 23-24, P F, 30 [...] No 07/03/2023 Does the household have a [facility] source of income? (Household - [...] encounter Miscellaneous Notes * Telephone Encounter - Drea Coronel PA-C - 10/29/2023 9:44 AM EDTSigned Prescriptions: Disp Refills Sertraline HCl 50 MG Oral Tablet (Zoloft) 45 Tab*3 Sig: TAKE 1/2 TABLET EVERY DAY Authorizing Provider: BRIAN SAVAGE III Ordering User: DENNY ELY Gabapentin 100 MG Oral Capsule (Neurontin) 180 Ca*1 Sig: TAKE 2 CAPSULES IN THE EVENING Authorizing Provider: DREA CORONEL Metoprolol Tartrate 25 MG Oral Tablet (Lop*90 Tab*3 Sig: TAKE 1/2 TABLET TWICE DAILY Authorizing Provider: BRIAN SAVAGE III Ordering User: DENNY ELY Finasteride 5 MG Oral Tablet (Proscar) 90 Tab*3 Sig: TAKE ONE TABLET EVERY DAY Authorizing Provider: BRIAN SAVAGE III Ordering User: DENNY ELY * Telephone Encounter - Denny Ely [facility] - 10/25/2023 4:21 PM EDT Pending Prescriptions: Disp Refills Gabapentin 100 MG Oral Capsule (Neurontin) 180 Ca*1 Sig: TAKE 2 CAPSULES IN THE EVENING Signed Prescriptions: Disp Refills Sertraline HCl 50 MG Oral Tablet (Zoloft) 45 Tab*3 Sig: TAKE 1/2 TABLET EVERY DAY Authorizing Provider: BRIAN SAVAGE III Ordering User: DENNY ELY Metoprolol Tartrate 25 MG Oral Tablet (Lop*90 Tab*3 Sig: TAKE 1/2 TABLET TWICE DAILY Authorizing Provider: BRIAN SAVAGE III Ordering User: DENNY ELY Finasteride 5 MG Oral Tablet (Proscar) 90 Tab*3 Sig: TAKE ONE TABLET EVERY DAY Authorizing Provider: BRIAN SAVAGE III Ordering User: DENNY ELY * Telephone Encounter - Denny Ely [facility] - 10/25/2023 4:21 PM EDT [facility] is currently not authorized to approve refills for the pended medication(s) per refill protocol. Please approve if appropriate. Thank you, Denny Ely PharmD, TAMIR Clinical Pharmacist [facility] ([facility]) 10/25/23 4:21 PM [phone] * Telephone Encounter - Tanya Duffy, air commodore - 10/25/2023 4:11 PM EDT Pharmacy requesting HIGH PRIORITY due to preparing pill packs for Saturday Did you pend patient's preferred pharmacy and medication before forwarding?yes Pharmacy: [facility], [address] [place] Pending Prescriptions: Disp Refills Sertraline HCl 50 MG Oral Tablet (Zoloft)*45 Tab*1 Sig: TAKE 1/2 TABLET EVERY DAY Gabapentin 100 MG Oral Capsule (Neurontin*180 Ca*1 Sig: TAKE 2 CAPSULES IN THE EVENING Metoprolol Tartrate 25 MG Oral Tablet (Lo*90 Tab*1 Sig: TAKE 1/2 TABLET TWICE DAILY Finasteride 5 MG Oral Tablet (Proscar) [P*90 Tab*1 Sig: TAKE ONE TABLET EVERY DAY Last Visit: Visit date not found (in office), Visit date not found (telemedicine) Next Visit: Visit date not found If no future appointments scheduled, and last appointment is greater than a year ago, please schedule patient for a follow-up appointment Last date the medication was ordered: 05/13/23 Is this request for a controlled substance?No [...] Description 11/14/2023 11:00 AM EDT Telemedicine Pharmacy, [address] [place] [address] [place] [address] 01/21/2024 8:40 AM EST Office Visit Family Practice [facility] [address] [facility] [place] [address] Brian Savage III, MD [address] [place] [address] 07/06/2024 8:30 AM EDT Nurse Only Ancillary [address] [place] [address] [place], Nurse [address] [place] [address] Health Maintenance Due Date Last Done Comments [...] Additional history exists CKD HGB USE SMARTSET 42259 10/06/202410/06, 06/14/2023, 01/30/2023, Additional history exists CKD PHOS USE SMARTSET 22650 10/06/202409/25, 01/30/2023, 01/03/2022, Additional history exists Albumin/Creatinine [...] as of this encounter Visit Diagnoses Diagnosis Stable angina (HCC) Other and unspecified angina pectoris BPH without obstruction/lower urinary tract symptoms Hypertrophy of prostate without urinary obstruction and other lower urinary tract symptoms (LUTS) documented in this encounter Care Teams Diesel Engineer Relationship Specialty Start Date End Date Brian Savage III, MD [address] [place] [address] PCP - General 11/18/06 documented as of this encounter
--- OUTSIDE RECORDS SUMMARY | 2024-01-26 10:40 | External Medical Summary | Summary of Care ---
Author Name Unknown Organization [facility] Address [address] [place] [address] Phone [phone] Care Team Providers Care Motor And Generator Brush Maker Name Role Phone Dimitri EMERY MD, Brian Adkins Primary Care Provider [phone] Reason for Visit * Reason Comments eRx-Medication Refill Encounter Details Date Type Department Care Team (Late st Contact Info) Description 10/23/2023 Refill Family Practice [facility] [address] [place] [address] Drea Coronel PA-C [address] [place] [address] Edema, unspecified type Allergies Active Allergy Reactions Criticality Noted Date Comments Metformin Hydrochloride 11/14/2004 GI SE Salicylates 03/10/2002 documented as of this encounter (statuses as of 10/25/2023) Medications Medication Sig Dispensed Refills Start Date [...] ULTRA BLUE STRPIndications:D iabetes mellitus, type II ([facility]) Use up to four times [...] hemoglobin A1c goal of less than 8.0% ([facility]) Use with insulins - 4 [...] 0.2-0.5 % Ophthalmic Solution (Combigan)Indicat ions:Stable angina ([facility]),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[facility]),Other specified glaucoma one drop to both eyes twice daily 10 mL 3 2022 Active Insulin Lispro (1 Unit Dial) 100 UNIT/ML Subcutaneous Solution Pen-injector (HumaLOG KwikPen)Indicatio ns:Type 2 diabetes mellitus with hemoglobin A1c goal of less than 8.0% ([facility]) inject 12 units under the [...] OTHER DAY 30 Capsule 3 05/13/2023 Active Gabapentin 100 MG Oral Capsule (Neurontin) TAKE 2 CAPSULES IN THE EVENING 180 Capsule 1 05/13/2023 Active FreeStyle Sheree 2 SensorIndications :Type 2 diabetes mellitus with hemoglobin A1c goal of less than 7.5% (HCC) Use as directed. Change every 14 days. 3 Each 06/06/2023 Active Incontinence Brief Large As directed 18 Each 06/07/2023 Active FreeStyle Sheree 2 [place] Device Use as directed. 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 urinary tract symptoms TAKE ONE TABLET EVERY DAY 90 Tablet 1 05/13/2023 4 Discontinued documented as of this encounter (statuses as of 10/25/2023) Active Problems Problem Noted Date Diagnosed Date Type 2 diabetes mellitus wit h stage 3b chronic kidney disease, with long-term current use of insulin 06/14/2023 Inavailability of community resources 11/27/2022 Food insecurity 07/02/2022 Overview: Per [facility] Protocol Diabetic polyneuropathy asso ciated [...] as of this encounter (statuses as of 10/25/2023) Resolved Problems Problem Noted Date Diagnosed Date [...] update of inactive term ACTIVE CASE MANAGEMENT-Flaco valeryaga Roberts RN [phone]. 05/05/2008 12/12/2009 DIAB RENAL MANIF ADULT 09/17/200707/02 [...] as of this encounter (statuses as of 10/25/2023) Immunizations Name Administration Dates Next Due COVID-19 mRNA, LNP-s, No Pre serve, 2-Dose Series ([employer]) 10/26/2020,10/05/2020 COVID-19, MRNA-LNP, 23-24, P F, 30 MCG/0.3 mL, 12 YRS AND ABOVE, IM ([employer]) 01/30/2023 Covid-19, Mrna, Lnp-s, Pf, B [...] encounter Miscellaneous Notes * Telephone Encounter - Doroteo Perez RP - 10/25/2023 4:15 PM EDTSigned Prescriptions: Disp Refills Furosemide 40 MG Oral Tablet (Lasix) 90 Tab*1 Sig: TAKE 1 TABLET BY MOUTH ON SATURDAY, SATURDAY AND SATURDAY (MAY TAKE 1 DAILY FOR 3 DAYS IF NEEDED FOR SWELLING) Authorizing Provider: BRIAN SAVAGE III Ordering User: DOROTEO PEREZ * Telephone Encounter - Tanya Dfufy, gizzard skin remover - 10/25/2023 4:08 PM EDT Pt requesting HIGH PRIORITY due to preparing pill packs for next Saturday. Did you pend patient's preferred pharmacy and medication before forwarding?yes Pharmacy: [facility], [facility] [place] Pending Prescriptions: Disp Refills Furosemide 40 MG Oral Tablet (Lasix) [Pha*90 Tab*3 Sig: TAKE 1 TABLET BY MOUTH ON SATURDAY, SATURDAY AND SATURDAY Last Visit: Visit date not found (in office), Visit date not found (telemedicine) Next Visit: Visit date not found If no future appointments scheduled, and last appointment is greater than a year ago, please schedule patient for a follow-up appointment Last date the medication was ordered: 10/01/2022 Is this request for a controlled substance?No [...] Description 11/14/2023 11:00 AM EDT Telemedicine Pharmacy, [address] [place] [address] [place] [address] 01/21/2024 8:40 AM EST Office Visit [facility] [address] [place] [address] Mifflin IIIBrian MD [address] [place] [address] 07/06/2024 8:30 AM EDT Nurse Only Ancillary [address] [place] [address] [place], Nurse [address] [place] [address] Health Maintenance Due Date Last Done Comments [...] Additional history exists CKD HGB USE SMARTSET 48582 10/06/202410/06, 06/14/2023, 01/30/2023, Additional history exists CKD PHOS USE SMARTSET 30605 10/06/202409/25, 01/30/2023, 01/03/2022, Additional history exists Albumin/Creatinine [...] as of this encounter Visit Diagnoses Diagnosis Edema, unspecified type documented in this encounter Care Teams Motor And Generator Brush Maker Relationship Specialty Start Date End Date Brian Savage III, MD [address] [place] [address] PCP - General 11/18/06 documented as of this encounter
--- OUTSIDE RECORDS SUMMARY | 2024-01-26 10:40 | External Medical Summary ---
Author Name Unknown Address Unknown Organization K01:[facility] [place] [address] [place] [address] Laboratory Report Ordering Provider Test Date Status HUSSEIN TORRES III 10/14/2023 08:51:22 Final Normal: <30 mg/g creatinine< br/>High: 30-300 mg/g creatinine
Very High: >300 mg/g creatinine
Nephrotic: >2200 mg/g creatinine Observation Date Value Abnormality Reference (Units ) Status Albumin, Urine 10/14/2023 08:51:22 8.94 (mg/dL) Final Creatinine, Urine 10/14/2023 08:51:22 65 (mg/dL) Final Albumin/Creatinine [Mass Ratio] in Urine 10/14/2023 08:51:22 138 Above high normal <30 (mg/g Creat) Final Performing Location [facility] [place] [facility] [address] [place] [address]
--- OUTSIDE RECORDS SUMMARY | 2024-01-26 10:40 | External Medical Summary | Summary of Care ---
Author Name Unknown Organization [facility] Address [address] [facility] [address] Phone [phone] Care Team Providers Care Care Transition Coordinator Name Role Phone Dimitri EMERY MD, Manjeet Adkins Primary Care Provider [phone] Reason for Visit * Reason Comments Outpatient Testing Encounter Details Date Type Department Care Team (Late st Contact Info) Description 10/14/2023 8:50 AM EDT Laboratory Laboratory [address] [place] [address] , Specimen Drop Off [address] [place] [address] Diabetic polyneuropathy associated with type 2 diabetes mellitus (HCC); Hallucinations Allergies Active Allergy Reactions Criticality Noted Date Comments Metformin Hydrochloride 11/14/2004 GI SE Salicylates 03/10/2002 documented as of this encounter (statuses as of 10/14/2023) Medications Medication Sig Dispensed Refills Start Date End Date Status LiquidCool SolutionsTOUCH DELICA LANCING DEV MISCIndications:DM type 2, goal A1C 7-8 Use to test blood sugar 3 times daily 1 Device 0 01/15/2012 Active LiquidCool SolutionsTOUCH DELICA LANCETS FINE MISCIndications:DM type 2, goal A1C below 8.0 test blood sugar four times daily as directed; dx 250.00 100 Each 11 04/02/2014 Active ONETOUCH ULTRA BLUE STRPIndications:Diab etes mellitus, type II ([facility]) [...] 0.2-0.5 % Ophthalmic Solution (Combigan)Indication s:Stable angina ([facility]),DM type 1 [...] 18 Each 06/07/2023 Active FreeStyle Sheree 2 [place] Device Use as directed. 1 Each 2 06/07/2023 Active Terazosin HCl 2 MG Oral CapsuleIndications:E pedro, unspecified type TAKE ONE CAPSULE AT BEDTIME 90 Capsule 1 07/04/2023 Active Gabapentin 300 MG Oral Capsule (Neurontin) TAKE TWO CAPSULES BY MOUTH TWICE DAILY 360 Capsule 3 08/27/2023 Active Donepezil HCl 10 MG Oral Tablet (Aricept) TAKE ONE TABLET BY MOUTH EVERY DAY 90 Tablet 08/27/2023 Active Rosuvastatin Calcium 20 MG Oral [...] as of this encounter (statuses as of 10/14/2023) Active Problems Problem Noted Date Diagnosed Date [...] as of this encounter (statuses as of 10/14/2023) Resolved Problems Problem Noted Date Diagnosed Date [...] inactive term ACTIVE CASE MANAGEMENT-Flaco Roberts RN [phone]. 05/05/2008 12/12/2009 DIAB RENAL MANIF ADULT 09/17/200707/02 [...] as of this encounter (statuses as of 10/14/2023) Immunizations Name Administration Dates Next Due COVID-19 mRNA, LNP-s, No Pre serve, 2-Dose Series ([employer]) 10/26/2020,10/05/2020 COVID-19, MRNA-LNP, 23-24, P F, 30 MCG/0.3 mL, 12 YRS AND ABOVE, IM ([employer]) 01/30/2023 Covid-19, Mrna, Lnp-s, Pf, B ivalent, [...] Description 11/14/2023 11:00 AM EDT Telemedicine Pharmacy, [address] [place] [address] [place] [address] 01/21/2024 8:40 AM EST Office Visit Family [facility] [address] [facility] [place] [address] Manjeet Mosley III, MD [address] [place] [address] 07/06/2024 8:30 AM EDT Nurse Only Ancillary [address] [place] [address] [place], Nurse Annual [address] [place] [address] Pending Results Name Type Priority Associated Diagnoses Date /Time ALBUMIN / CREATININE RATIO, URINE Lab Routine Diabetic polyneuropathy associated with type 2 diabetes mellitus (HCC) Hallucinations 10/14/2023 8:51 AM EDT Health Maintenance Due Date Last Done Comments DTaP,Tdap,and Td Vaccines (1 - Tdap) 08/03/2008 08/02/2008 Zoster Vaccines (3 of 3) 06/12/2019 04/17/2019, 03/29 Albumin/Creatinine Ratio 09/18/2022 022, 08/23/2020, 01/26/2019, Additional history exists COVID-19 Vaccine ( - season) 2023 01/30/2023, [...] Additional history exists CKD HGB USE SMARTSET 12511 10/06/202410/06, 06/14/2023, 01/30/2023, Additional history exists CKD PHOS USE SMARTSET 13950 10/06/202409/25, 01/30/2023, 01/03/2022, Additional history exists Pneumococcal Vaccine: 65+ Years [...] as of this encounter Visit Diagnoses Diagnosis Diabetic polyneuropathy associated with type 2 diabetes mellitus (HCC) Hallucinations documented in this encounter Care Teams Care Transition Coordinator Relationship Specialty Start Date End Date Manjeet Mosley III, MD [address] [facility] [address] PCP - General 11/18/06 documented as of this encounter
--- OUTSIDE RECORDS SUMMARY | 2024-01-26 10:40 | External Medical Summary | Summary of Care ---
Author Name Unknown Organization [facility] Address [address] [place] [address] Phone [phone] Care Team Providers Care Wage And Salary Specialist Name Role Phone Dimitri EMERY MD, Manjeet Adkins Primary Care Provider [phone] Encounter Details Date Type Department Care Team (Late st Contact Info) Description 10/08/2023 Orders Only [facility] [address] [facility] [place] [address] Manjeet Mosley III, MD 200 [facility] [address] Anemia, unspecified type* Allergies Active Allergy Reactions Criticality Noted Date Comments Metformin Hydrochloride 11/14/2004 GI SE Salicylates 03/10/2002 documented as of this encounter (statuses as of 10/08/2023) Medications Medication Sig Dispensed Refills Start Date [...] goal of less than 8.0% ([facility]) Use with insulins - 4 [...] 0.2-0.5 % Ophthalmic Solution (Combigan)Indication s:Stable angina ([facility]),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 Change every 14 days. 3 Each 06/06/2023 Active Incontinence Brief Large As directed 18 Each 06/07/2023 Active FreeStyle Sheree 2 [place] Device Use as directed. 1 Each 2 [...] as of this encounter (statuses as of 10/08/2023) Active Problems Problem Noted Date Diagnosed Date [...] as of this encounter (statuses as of 10/08/2023) Resolved Problems Problem Noted Date Diagnosed Date [...] inactive term ACTIVE CASE MANAGEMENT-Flaco Roberts RN [phone]. 05/05/2008 12/12/2009 DIAB RENAL MANIF ADULT 09/17/200707/02 [...] as of this encounter (statuses as of 10/08/2023) Immunizations Name Administration Dates Next Due COVID-19 mRNA, LNP-s, No Pre serve, 2-Dose Series ([employer]) 10/26/2020,10/05/2020 COVID-19, MRNA-LNP, 23-24, P F, 30 MCG/0.3 mL, 12 YRS AND ABOVE, IM ([employer]) 01/30/2023 Covid-19, Mrna, Lnp-s, Pf, B ivalent, [...] 11/14/2023 11:00 AM EDT Telemedicine Pharmacy, [address] [place] [address] [place] [address] 01/21/2024 8:40 AM EST [facility] [address] [facility] [place] [address] Manjeet Mosley III, MD [address] [place] [address] 07/06/2024 8:30 AM EDT Nurse Only Ancillary [address] [place] [address] [place], Nurse [address] [place] [address] Pending Results Name Type Priority Associated Diagnoses Date /Time IRON SCREEN, INCLUDING TIBC Lab Routine Anemia, unspecified type 10/07/2023 9:51 AM EDT FERRITIN Lab Routine Anemia, unspecified type 10/07/2023 9:51 AM EDT Scheduled Orders Name Type Priority Associated Diagnoses Orde r Schedule IRON SCREEN, INCLUDING TIBC Lab Routine Anemia, unspecified type Expected: 10/08/2023 (Approximate), Expires: 10/07/2024 FERRITIN Lab Routine Anemia, unspecified type Expected: 10/08/2023 (Approximate), Expires: 10/07/2024 Health Maintenance Due Date Last Done Comments [...] Additional history exists CKD HGB USE SMARTSET 77955 10/06/202410/06, 06/14/2023, 01/30/2023, Additional history exists CKD PHOS USE SMARTSET 62316 10/06/202409/25, 01/30/2023, 01/03/2022, Additional history exists Pneumococcal [...] as of this encounter Visit Diagnoses Diagnosis Anemia, unspecified type- Primary documented in this encounter Care Teams Wage And Salary Specialist Relationship Specialty Start Date End Date Manjeet Mosley III, MD [address] [place] [address] PCP - General 11/18/06 documented as of this encounter
--- OUTSIDE RECORDS SUMMARY | 2024-01-26 10:40 | External Medical Summary | Summary of Care ---
Author Name Unknown Organization [facility] Address [address] [facility] [address] Phone [phone] Care Team Providers Care Paint Specialist Name Role Phone Dimitri EMERY MD, Manjeet Adkins Primary Care Provider [phone] Reason for Visit * Reason Comments Outpatient Testing Encounter Details Date Type Department Care Team (Late st Contact Info) Description 10/14/2023 8:50 AM EDT Laboratory Laboratory [address] [place] [id number] , Specimen Drop Off [address] [place] [address] Diabetic polyneuropathy associated with type 2 diabetes mellitus (HCC); Hallucinations Allergies Active Allergy Reactions Criticality Noted Date Comments Metformin Hydrochloride 11/14/2004 GI SE Salicylates 03/10/2002 documented as of this encounter (statuses as of 10/14/2023) Medications Medication Sig Dispensed Refills Start Date End Date Status GT NexusTOUCH DELICA LANCING DEV MISCIndications:DM type 2, goal A1C 7-8 Use to test blood sugar 3 times daily 1 Device 0 01/15/2012 Active GT NexusTOUCH DELICA LANCETS FINE MISCIndications:DM type 2, goal A1C below 8.0 test blood sugar four times daily as directed; dx 250.00 100 Each 11 04/02/2014 Active ONETOUCH ULTRA BLUE STRPIndications:Diab etes mellitus, type II ([facility]) Use up to four times a day [...] goal of less than 8.0% ([facility]) Use with insulins - 4 times a [...] Ophthalmic Solution (Combigan)Indication s:Stable angina ([facility]),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 1 Each 2 [...] inactive term ACTIVE CASE MANAGEMENT-Flaco Roberts RN [phone]. 05/05/2008 12/12/2009 DIAB RENAL MANIF ADULT 09/17/200707/02 [...] mRNA, LNP-s, No Pre serve, 2-Dose Series (Stockpulse) 10/26/2020,10/05/2020 COVID-19, MRNA-LNP, 23-24, P F, 30 MCG/0.3 mL, 12 YRS AND ABOVE, IM ([employer]-ComirnatWave - Private Location App) 01/30/2023 Covid-19, Mrna, Lnp-s, Pf, B ivalent, [...] Description 11/14/2023 11:00 AM EDT Telemedicine Pharmacy, [address] [place] [address] [place] [address] 01/21/2024 8:40 AM EST Office Visit Family [facility] [address] [facility] [place] [address] Manjeet Mosley III, MD [address] [place] [address] 07/06/2024 8:30 AM EDT Nurse Only Ancillary [address] [place] [address] [place], Nurse Annual [address] [place] [address] Pending Results Name Type Priority Associated Diagnoses [...] Additional history exists CKD HGB USE SMARTSET 25433 10/06/202410/06, 06/14/2023, 01/30/2023, Additional history exists CKD PHOS USE SMARTSET 91250 10/06/202409/25, 01/30/2023, 01/03/2022, Additional history exists Pneumococcal [...] Hallucinations documented in this encounter Care Teams Paint Specialist Relationship Specialty Start Date End Date Manjeet Mosley III, MD [address] [place] [place] [address] PCP - General 11/18/06 documented as of this encounter
--- OUTSIDE RECORDS SUMMARY | 2024-01-26 10:40 | External Medical Summary | Summary of Care ---
Author Name Unknown Organization [facility] Address [address] [place] [address] Phone [phone] Care Team Providers Care Intelligence Consultant Name Role Phone Dimitri EMERY MD, Manjeet Adkins Primary Care Provider [phone] Reason for Visit * Reason Onset Date Comments Fax 09/19/2023 Encounter Details Date Type Department Care Team (Late st Contact Info) Description 09/19/2023 Telephone Family Practice [facility] [address] [place] [address] Manjeet Mosley III, MD 200 [place] [address] Fax Allergies Active Allergy Reactions Criticality Noted Date Comments Metformin Hydrochloride 11/14/2004 GI SE Salicylates 03/10/2002 documented as of this encounter (statuses as of 11/01/2023) Medications Medication Sig Dispensed Refills Start Date [...] BLUE STRPIndications:D luz marina mellitus, type II ([facility]) Use [...] 0.2-0.5 % Ophthalmic Solution (Combigan)Indicat ions:Stable angina ([facility]),DM type 1 causing [...] 18 Each 4 Active FreeStyle Sheree 2 [place] Device Use as directed. 1 Each 2 [...] crush or chew 40 Tablet 4 Active Furosemide 40 MG Oral Tablet [...] 24 Discontinued Finasteride 5 MG Oral Tablet (Proscar)Indicati [...] as of this encounter (statuses as of 11/01/2023) Active Problems Problem Noted Date Diagnosed Date Type 2 diabetes mellitus wit h stage 3b chronic kidney disease, with long-term current use of insulin 06/14/2023 Inavailability of community resources 11/27/2022 Food insecurity 07/02/2022 Overview: Per [facility] Protocol Diabetic polyneuropathy asso ciated [...] as of this encounter (statuses as of 11/01/2023) Resolved Problems Problem Noted Date Diagnosed Date [...] inactive term ACTIVE CASE MANAGEMENT-Flaco Roberts RN [phone]. 05/05/2008 12/12/2009 DIAB RENAL MANIF ADULT 09/17/200707/02 [...] as of this encounter (statuses as of 11/01/2023) Immunizations Name Administration Dates Next Due COVID-19 mRNA, LNP-s, No Pre serve, 2-Dose Series ([employer]) 10/26/2020,10/05/2020 COVID-19, MRNA-LNP, 23-24, P F, 30 [...] encounter Miscellaneous Notes * Telephone Encounter - Yadi Tirado OSA [...] review and fax the request back to [phone]. Of note, there were two faxes sent on behalf of this patient - one was for the initial request, the second was for an increased supply order - the reference # for the request is [id number]. * Telephone Encounter - Tegan Banks RN [...] over request for incontinence supplies. Glory Briscoe [employer] Assembly Supervisor [facility] 09/19/2023,9:10 AM documented in this encounter Plan of Treatment Upcoming Encounters Date Type Department Care Team (Late st Contact Info) Description 11/14/2023 11:00 AM EDT Telemedicine Pharmacy, [address] [place] [address] [place] [address] 01/21/2024 8:40 AM EST Office Visit Family Practice [facility] [address] [facility] [place] [address] Manjeet Mosley III, MD [address] [facility] [place] [address] 07/06/2024 8:30 AM EDT Nurse Only Ancillary [address] [place] [address] [place], Nurse [address] [place] [address] Health Maintenance Due Date Last Done Comments [...] Additional history exists CKD HGB USE SMARTSET 44987 10/06/202410/06, 06/14/2023, 01/30/2023, Additional history exists CKD PHOS USE SMARTSET 41133 10/06/202409/25, 01/30/2023, 01/03/2022, Additional history exists Albumin/Creatinine [...] filedocumented as of this encounter Care Teams Intelligence Consultant Relationship Specialty Start Date End Date Manjeet Mosley III, MD 200 [place] [address] PCP - General 11/18/06 documented as of this encounter
--- OUTSIDE RECORDS SUMMARY | 2024-01-26 10:41 | External Medical Summary ---
Author Name Unknown Address Unknown Organization K09:[facility] [place] [address] Laboratory Report Ordering Provider Test Date Status HUSSEIN TORRES III 10/07/2023 09:51:01 Final Observation Date Value Abnormality Reference (Units ) Status Magnesium 10/07/2023 09:51:01 2.5 1.5-2.6 (m g/dL) Final Performing Location [facility] [place] [address]
--- OUTSIDE RECORDS SUMMARY | 2024-01-26 10:41 | External Medical Summary | Summary of Care ---
Author Name Unknown Organization [facility] Address [address] [place] [address] Phone [phone] Care Team Providers Care Wireline Field Operator Name Role Phone Dimitri EMERY MD, Manjeet Adkins Primary Care Provider [phone] Reason for Visit * Reason Onset Date Comments Forms Request 09/09/2023 Encounter Details Date Type Department Care Team (Late st Contact Info) Description 09/09/2023 Telephone Family Practice [facility] 200 [facility] [place] [address] Manjeet Mosley III, MD 200 [place] [address] Forms Request Allergies Active Allergy Reactions Criticality Noted Date Comments Metformin Hydrochloride 11/14/2004 GI SE Salicylates 03/10/2002 documented as of this encounter (statuses as of 09/13/2023) Medications Medication Sig Dispensed Refills Start Date [...] BLUE STRPIndications:D luz marina mellitus, type II ([facility] [...] Solution (Combigan)Indicat ions:Stable angina ([facility]),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 1 Each 2 [...] Oral Tablet Extended Release 12 Hour (Mucinex)Indicati ons:Chronic maxillary sinusitis Take 1 Tablet by mouth 2 times a day as needed for Congestion. Take with plenty of water. Do not cut, crush or chew 40 Tablet 2 3 09/12/19 24 Discontinued(Ref ill) Cefuroxime Axetil 500 MG Oral Tablet (Ceftin) Take 1 Tablet by mouth 2 times a day. 20 Tablet 3 09/12/19 24 Discontinued documented as of this encounter (statuses as of 09/13/2023) Active Problems Problem Noted Date Diagnosed Date [...] as of this encounter (statuses as of 09/13/2023) Resolved Problems Problem Noted Date Diagnosed Date [...] inactive term ACTIVE CASE MANAGEMENT-Flaco Roberts RN [phone]. 05/05/2008 12/12/2009 DIAB RENAL MANIF ADULT 09/17/200707/02 [...] as of this encounter (statuses as of 09/13/2023) Immunizations Name Administration Dates Next Due COVID-19 mRNA, LNP-s, No Pre serve, 2-Dose Series (Pfizer) 10/26/2020,10/05/2020 COVID-19, MRNA-LNP, 23-24, P F, 30 MCG/0.3 mL, 12 YRS AND ABOVE, IM ([employer]Comirnat) 01/30/2023 Covid-19, Mrna, Lnp-s, Pf, B ivalent, [...] Influenza, Split, I IV3, With Preserve, Inj 11/19/2013,01/02/2013,11/27/2011,01/01,12/01/2009,03/07/2009,01/07/2008 ,12/09/2006,12/12/2005,12/28/2004 Seasonal Influenza, Trivalen t, Adjuvanted, 65+ yrs [...] encounter Miscellaneous Notes * Telephone Encounter - Lele Joseph DO - 09/13/2023 4:59 PM EDT On your desk * Telephone Encounter - Jody Crain MED JING - 09/12/2023 1:21 PM EDT Forms are in Dr. Joseph's mailbox. * Telephone Encounter - Lele Joseph DO - 09/11/2023 4:43 PM EDT Any idea on these forms? * Telephone Encounter - Andrea Garcia OSA - 09/11/2023 2:22 PM EDT Patient calling in to check on the status of previous message. Patient Called within 48 hour timeframe. Reminded patient of 48 hour turn-around time. * Telephone Encounter - Crain, MARRY Vera - 09/11/2023 11:23 AM EDT Please see patient message. Thank you! * Telephone Encounter - Virginia Ashford OSA - 09/09/2023 10:54 AM EDT Viv from [employer] is calling to verify status of forms for diabetic supplies for patient that was sent on 09/06/23. Viv states that patient will need Freestyle sheree supply and will forms signed by doctor. Please advise. documented in this encounter Plan of Treatment Upcoming Encounters Date Type Department Care Team (Late st Contact Info) Description 09/17/2023 2:30 PM EDT Telemedicine Pharmacy, [address] [place] [address] [place] [address] 10/07/2023 9:20 AM EDT Office Visit Family Practice [facility] 200 [facility] [place] [address] Manjeet Mosley III, MD 200 [facility] [place] [address] 07/06/2024 8:30 AM EDT Nurse Only Ancillary [address] [place] [address] [place], Nurse [address] [place] [address] Health Maintenance Due Date Last Done Comments DTaP,Tdap,and Td Vaccines (1 - Tdap) 08/03/2008 08/02/2008 Zoster Vaccines (3 of 3) 06/12/2019 04/17/2019, 03/29 Diabetic Eye Exam 06/29/2022 06/29/2021, , 10/23/2019 (Done elsewhere), Additional history exists Albumin/Creatinine Ratio 09/18/20222 022, 08/23/2020, 01/26/2019, Additional history exists COVID-19 Vaccine ( season) 2023 01/30/2023, 03/01/2022, 10/26/2020, Additional history exists Influenza Vaccine (FLU shot) (#1) 2023 11/27/2022, 01/03/2022, 01/25/2021, Additional history exists HbA1c 12/14/2023 06/14/2023, 07/2022, 07/31/2022, Additional history exists CKD PHOS USE SMARTSET 87494 01/31/202407/2022, 01/03/2022, 01/25/2021, Additional history exists Diabetic Foot Exam 06/03/2024 06/04/2023 (D one elsewhere), 06/28/2022, 02/06/2021, Additional history exists CKD HGB USE SMARTSET 54135 06/13/202406/13, 01/30/2023, 01/03/2022, Additional history exists Depression Screening 07/02/2024 07/03/2023, 07/03/19 24 Pneumococcal Vaccine: 65+ Years Completed 05/06/2014, 12/28/2004 [...] filedocumented as of this encounter Care Teams Wireline Field Operator Relationship Specialty Start Date End Date Manjeet Mosley III, MD [address] [facility] [place] [address] PCP - General 11/18/06 documented as of this encounter
--- OUTSIDE RECORDS SUMMARY | 2024-01-26 10:41 | External Medical Summary ---
Author Name Unknown Address Unknown Organization K09[facility] [place] [address] Laboratory Report Ordering Provider Test Date Status HUSSEIN TORRES III 10/07/2023 09:51:01 Final Observation Date Value Abnormality Reference (Units ) Status Phosphate 10/07/2023 09:51:01 3.9 2.5-4.8 (m g/dL) Final Performing Location [facility] [place] [address]
--- OUTSIDE RECORDS SUMMARY | 2024-01-26 10:41 | External Medical Summary | Summary of Care ---
Author Name Unknown Organization [facility] Address [address] [place] [address] Phone [phone] Care Team Providers Care Saw Man Name Role Phone Dimitri EMERY MD, Brian Adkins Primary Care Provider [phone] Reason for Visit * Reason Comments eRx-Medication Refill Encounter Details Date Type Department Care Team (Late st Contact Info) Description 09/25/2023 Refill Family Practice [facility] 200 [facility] [place] [address] Brian Savage III, MD [address] [place] [address] Allergies Active Allergy Reactions Criticality Noted Date Comments Metformin Hydrochloride 11/14/2004 GI SE Salicylates 03/10/2002 documented as of this encounter (statuses as of 10/01/2023) Medications Medication Sig Dispensed Refills Start Date [...] ULTRA BLUE STRPIndications:D iabetes mellitus, type II (HCC) Use up to [...] 04/05/2022 Active Furosemide 40 MG Oral Tablet (Lasix)Indication [...] 05/13/2023 Active Finasteride 5 MG Oral Tablet (Proscar)Indicati ons:BPH without obstruction/lower urinary tract symptoms TAKE ONE TABLET EVERY DAY 90 Tablet 1 05/13/2023 Active FreeStyle Sheree 2 SensorIndications :Type 2 diabetes mellitus with hemoglobin A1c goal of less than 7.5% (HCC) Use as directed. Change every 14 days. 3 Each 06/06/2023 Active Incontinence Brief Large As directed 18 Each 06/07/2023 Active FreeStyle Sheree 2 [place] Device Use as directed. 1 Each 2 [...] EVERY DAY 90 Capsule 3 08/27/2023 Active Cefuroxime Axetil 500 MG Oral Tablet (Ceftin)Indicatio ns:Bronchitis, complicated,Hyper trophic toenail,Celluliti s of great toe of right foot Take 1 Tablet by mouth 2 times a day. 14 Tablet 09/12/2023 Active guaiFENesin ER 600 MG Oral Tablet Extended Release 12 Hour (Mucinex)Indicati ons:Bronchitis, complicated Take 1 Tablet by mouth 2 times a day as needed for Congestion. Take with plenty of water. Do not cut, crush or chew 40 Tablet 09/12/2023 Active Famotidine 20 MG Oral Tablet (Pepcid) TAKE ONE TABLET TWICE DAILY 180 Tablet 3 10/01/2023 Active Famotidine 20 MG Oral Tablet (Pepcid) TAKE ONE TABLET BY MOUTH TWICE DAILY 180 Tablet 3 10/25/2022 4 Discontinued documented as of this encounter (statuses as of 10/01/2023) Active Problems Problem Noted Date Diagnosed Date Type 2 diabetes mellitus wit h stage 3b chronic kidney disease, with long-term current use of insulin 06/14/2023 Inavailability of community resources 11/27/2022 Food insecurity 07/02/2022 Overview: Per [facility] Protocol Diabetic polyneuropathy asso ciated [...] as of this encounter (statuses as of 10/01/2023) Resolved Problems Problem Noted Date Diagnosed Date [...] inactive term ACTIVE CASE MANAGEMENT-Flaco Roberts RN [phone]. 05/05/2008 12/12/2009 DIAB RENAL MANIF ADULT 09/17/200707/02 [...] as of this encounter (statuses as of 10/01/2023) Immunizations Name Administration Dates Next Due COVID-19 mRNA, LNP-s, No Pre serve, 2-Dose Series ([employer]) 10/26/2020,10/05/2020 COVID-19, MRNA-LNP, 23-24, P F, 30 MCG/0.3 mL, 12 YRS AND ABOVE, IM ([employer] 01/30/2023 Covid-19, Mrna, Lnp-s, Pf, B ivalent, [...] encounter Miscellaneous Notes * Telephone Encounter - Howard Lay [facility] - 10/01/2023 2:44 PM EDTSigned Prescriptions: Disp Refills Famotidine 20 MG Oral Tablet (Pepcid) 180 Ta*3 Sig: TAKE ONE TABLET TWICE DAILY Authorizing Provider: BRIAN SAVAGE III Ordering User: HOWARD LAY * Telephone Encounter - Yoko Esteban CPhT - 10/01/2023 1:36 PM EDT Did you pend patient's preferred pharmacy and medication before forwarding?yes Pharmacy: [facility], [address] [place] Pending Prescriptions: Disp Refills Famotidine 20 MG Oral Tablet (Pepcid) [Ph*180 Ta*3 Sig: TAKE ONE TABLET TWICE DAILY Last Visit: 06/14/2023 (in office), Visit date not found (telemedicine) Next Visit: 10/07/2023 If no future appointments scheduled, and last appointment is greater than a year ago, please schedule patient for a follow-up appointment Last date the medication was ordered: 10/25/22 Is this request for a controlled substance?No Urine Drug Screen:No results found. However, due to the size of the patient record, not all encounters were searched. Please check Results Review for a complete set of results. Patient Phone Numbers Labs: Lab Results Component Value Date/Time CREAT 1.4 (H) 06/14/2023 10:53 AM CREAT 1.6 (H) 11/16/2019 09:46 AM POTASSIUM 4.7 06/14/2023 10:53 AM POTASSIUM 4.7 11/16/2019 09:46 AM TSH 0.87 07/09/2017 10:43 AM LDLCALC 28 07/31/2022 08:47 AM LDLCALC 46 01/26/2019 12:31 PM LDLDIRECT NOT APPLICABLE 01/26/2019 12:31 PM LDLDIRECT 30 07/09/2017 10:43 AM ALT 21 06/05/2021 11:25 AM ALT 28 04/29/2018 09:59 AM HGBA1C 7.8 (H) 06/14/2023 10:53 AM HGBA1C 8.8 (H) 11/05/2019 12:15 PM documented in this encounter Plan of Treatment Upcoming Encounters Date Type Department Care Team (Late st Contact Info) Description 10/07/2023 9:20 AM EDT Office Visit Family [facility] [place] [address] [facility] [place] [address] Brian Savage III, MD 200 [facility] [place] [address] 11/14/2023 11:00 AM EDT Telemedicine Pharmacy, [address] [place] [address] [place] [address] 07/06/2024 8:30 AM EDT Nurse Only Ancillary [address] [place] [address] [place], Nurse Annual Wellness [address] [place] [address] [place] [address] Health Maintenance Due Date Last Done Comments DTaP,Tdap,and Td Vaccines (1 - Tdap) 08/03/2008 08/02/2008 Zoster Vaccines (3 of 3) 06/12/2019 04/17/2019, 03/29 Albumin/Creatinine Ratio 09/18/2022 022, 08/23/2020, 01/26/2019, Additional history exists COVID-19 Vaccine (2022- season) 2023 01/30/2023, 03/01/2022, 10/26/2020, Additional history exists Influenza Vaccine (FLU shot) (#1) 2023 11/27/2022, 01/03/2022, 01/25/2021, Additional history exists HbA1c 12/14/2023 06/14/2023, 07/2022, 07/31/2022, Additional history exists CKD PHOS USE SMARTSET 88828 01/31/202407/2022, 01/03/2022, 01/25/2021, Additional history exists Diabetic Foot Exam 06/03/2024 06/04/2023 (D one elsewhere), 06/28/2022, 02/06/2021, Additional history exists CKD HGB USE SMARTSET 28420 06/13/202406/13, 01/30/2023, 01/03/2022, Additional history exists Adult Wellness Visit 07/02/2024 [...] filedocumented as of this encounter Care Teams Saw Man Relationship Specialty Start Date End Date Brian Savage III, MD [address] [place] [address] PCP - General 11/18/06 documented as of this encounter
--- OUTSIDE RECORDS SUMMARY | 2024-01-26 10:41 | External Medical Summary | Summary of Care ---
Author Name Unknown Organization [facility] Address [address] [place] [address] Phone [phone] Care Team Providers Care Behavioral Intervention Specialist Name Role Phone Dimitri EMERY MD, Manjeet Adkins Primary Care Provider [phone] Encounter Details Date Type Department Care Team (Late st Contact Info) Description 09/18/2023 Telephone Pharmacy, [address] [place] [phone] [facility] [address] [facility] [place] [address] Allergies Active Allergy Reactions Criticality Noted Date Comments Metformin Hydrochloride 11/14/2004 GI SE Salicylates 03/10/2002 documented as of this encounter (statuses as of 09/18/2023) Medications Medication Sig Dispensed Refills Start Date [...] hemoglobin A1c goal of less than 8.0% ([facility]) Use with insulins - 4 times a [...] 0.2-0.5 % Ophthalmic Solution (Combigan)Indication s:Stable angina ([facility]),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 1 Each 2 [...] Active Cefuroxime Axetil 500 MG Oral Tablet (Ceftin)Indications: Bronchitis, complicated,Hypertro phic toenail,Cellulitis of great toe of right foot Take 1 Tablet by mouth 2 times a day. 14 Tablet 09/12/2023 Active guaiFENesin ER 600 MG Oral Tablet Extended Release 12 Hour (Mucinex)Indications :Bronchitis, complicated Take 1 Tablet by mouth 2 times a day as needed for Congestion. Take with plenty of water. Do not cut, crush or chew 40 Tablet 09/12/2023 Active documented as of this encounter (statuses as of 09/18/2023) Active Problems Problem Noted Date Diagnosed Date [...] as of this encounter (statuses as of 09/18/2023) Resolved Problems Problem Noted Date Diagnosed Date [...] inactive term ACTIVE CASE MANAGEMENT-Flaco Roberts RN [phone]. 05/05/2008 12/12/2009 DIAB RENAL MANIF ADULT 09/17/200707/02 [...] as of this encounter (statuses as of 09/18/2023) Immunizations Name Administration Dates Next Due COVID-19 mRNA, LNP-s, No Pre serve, 2-Dose Series ([place]) 10/26/2020,10/05/2020 COVID-19, MRNA-LNP, 23-24, P F, 30 MCG/0.3 mL, 12 YRS AND ABOVE, IM ([facility]) 01/30/2023 Covid-19, Mrna, Lnp-s, Pf, B ivalent, [...] Telephone Encounter - Carol Paez RPh - 09/18/2023 8:11 AM EDT Images from the original note were not included. Patient's daughter stopped by with [email or web address] reader to download. [place] downloaded for telemedicine visit tomorrow. Carol Paez RPh, PharmD Clinical Pharmacist - Commission [employer] 09/18/2023, 8:14 AM [phone] documented in this encounter Plan of Treatment Upcoming Encounters Date Type Department Care Team (Late st Contact Info) Description 09/19/2023 9:30 AM EDT Telemedicine Pharmacy, [address] [place] [phone] [place] [phone] 10/07/2023 9:20 AM EDT Office Visit [facility] [place] [place] [address] Manjeet Mosley III, MD [address] [facility] [place] [address] 07/06/2024 8:30 AM EDT Nurse Only Ancillary [address] [place] [id number] [place], Nurse [address] [place] [address] Health Maintenance Due Date Last Done Comments DTaP,Tdap,and Td Vaccines (1 - Tdap) 08/03/2008 08/02/2008 Zoster Vaccines (3 of 3) 06/12/2019 04/17/2019, 03/29 Diabetic Eye Exam 06/29/2022 06/29/2021, , 10/23/2019 (Done elsewhere), Additional history exists Albumin/Creatinine Ratio 09/18/2022 022, 08/23/2020, 01/26/2019, Additional history exists COVID-19 Vaccine ( season) 2023 01/30/2023, 03/01/2022, 10/26/2020, Additional history exists Influenza Vaccine (FLU shot) (#1) 2023 11/27/2022, 01/03/2022, 01/25/2021, Additional history exists HbA1c 12/14/2023 06/14/2023, 1207/2022, 07/31/2022, Additional history exists CKD PHOS USE SMARTSET 45996 01/31/202407/2022, 01/03/2022, 01/25/2021, Additional history exists Diabetic Foot Exam 06/03/2024 06/04/2023 (D one elsewhere), 06/28/2022, 02/06/2021, Additional history exists CKD HGB USE SMARTSET 16297 06/13/202406/13, 01/30/2023, 01/03/2022, Additional history exists Depression [...] filedocumented as of this encounter Care Teams Behavioral Intervention Specialist Relationship Specialty Start Date End Date Manjeet Mosley III, MD [address] [facility] [place] [address] PCP - General 11/18/06 documented as of this encounter
--- OUTSIDE RECORDS SUMMARY | 2024-01-26 10:41 | External Medical Summary ---
Author Name Unknown Address Unknown Organization K01:[facility] [address] [place] [address] Laboratory Report Ordering Provider Test Date Status HUSSEIN TORRES III 10/07/2023 09:51:01 Final Observation Date Value Abnormality Reference (Units ) Status Ferritin 10/07/2023 09:51:01 31 30-400 (ng /mL) Final Performing Location [facility] - [address] [place] [address]
--- OUTSIDE RECORDS SUMMARY | 2024-01-26 10:41 | External Medical Summary ---
Author Name Unknown Address Unknown Organization K09:[facility] [place] [address] Laboratory Report Ordering Provider Test Date Status HUSSEIN TORRES III 10/07/2023 09:51:01 Final Observation Date Value Abnormality Reference (Units ) Status WBC, Total 10/07/2023 09:51:01 6.74 4.00-10.8 0 (K/uL) Final RBC 10/07/2023 09:51:01 3.74 4.50-5.25 (M/uL) Final Hemoglobin 10/07/2023 09:51:01 11.1 Below low normal 14 .0-16.8 (g/dL) Final HCT 10/07/2023 09:51:01 35.4 Below low normal 40. 0-48.4 (%) Final MCV 10/07/2023 09:51:01 94.7 82.0-99.5 (fL) Final MCH 10/07/2023 09:51:01 29.7 27.0-34.0 (pg) Final MCHC 10/07/2023 09:51:01 31.4 32.0-36.0 (g/dL) Final RDW 10/07/2023 09:51:01 14.3 11.5-15.5 (%) Final Platelets 10/07/2023 09:51:01 224 140-400 (K /uL) Final MPV 10/07/2023 09:51:01 10.5 6.6-11.1 ( fL) Final Performing Location [facility] [place] [address]
--- OUTSIDE RECORDS SUMMARY | 2024-01-26 10:41 | External Medical Summary ---
Author Name Unknown Address Unknown Organization K01:[facility] - [address] [place] [address] Laboratory Report Ordering Provider Test Date Status HUSSEIN TORRES III 10/07/2023 09:51:01 Final Observation Date Value Abnormality Reference (Units ) Status Iron 10/07/2023 09:51:01 40 Below low normal 45-176 (ug/dL) Final Iron-binding capacity 10/07/2023 09:51:01 301 250-425 (ug/dL) Final Transferrin Sat % 10/07/2023 09:51:01 13 Below low normal 15-55 (%) Final Performing Location [facility] - [address] [place] [address]
--- OUTSIDE RECORDS SUMMARY | 2024-01-26 10:41 | External Medical Summary | Summary of Care ---
Author Name Unknown Organization [facility] Address [address] [place] [address] Phone [phone] Care Team Providers Care Lieutenant Shift Supervisor Name Role Phone Dimitri EMERY MD, John E Primary Care Provider [phone] Reason for Referral * Evaluate & Treat - Unlimited Visits (Within 10 days (routine)) - Authorized Specialty Diagnoses / Procedures Referred By Contac t Referred To Contact Pharmacist / Pharmacy Diagnoses Diabetic polyneuropathy associated with type 2 diabetes mellitus (HCC) Hallucinations Manjeet Mosley III, MD [address] [place] [address] Referral ID Status Reason Start Date Expiration Date Visits Requested Visits Authorized [id number] Authorized Specialty Services Required 10/07/2023 04/04/2024 99 99 Question Answer Referral Priority Within 10 days (routine) Where should this appointment be scheduled? [facility] Referring Provider Role: Primary Care Reason for Referral: Med Review Comments Pharmacist Medication Therapy Management: Minimum frequency patient should be seen in person for medication management: as appropriate per clinical condition and patient status By my signature, I understand that my patient Nelson Arenas will have his medication therapy managed by the [facility] ([facility]) per established policies, procedures, and protocols. I also certify that this referral may serve as an initiation of service for the management of drug therapy in the above noted patient. [facility] providers will be responsible for scheduling patient visits, obtaining appropriate laboratory studies, and adjusting medication management therapy per patient's need, in addition to those roles spelled out in the clinic policy, procedures, and drug management protocols. I understand that the service provided by the [facility] is voluntary and have informed patient that they can refuse the service at their discretion. I am aware that the [facility] Clinic will provide me with a copy of the patient encounter via my [employer]NOW [employer]. I authorize the [facility] to carry out these activities on my behalf. I consider this program to be a necessary part of the patient's medical care. Manjeet Mosley III, MD Reason for Visit * Reason Comments Re-Check Encounter Details Date Type Department Care Team (Latest Contact Info) Description 10/07/2023 9:20 AM EDT Office Visit Family Practice [facility] [address] [facility] [place] [address] Manjeet Mosley III, MD [address] [facility] [place] [address] Diabetic polyneuropathy associated with type 2 diabetes mellitus (HCC)*; Hallucinations; senior living use of drug Allergies Active Allergy Reactions [...] ULTRA BLUE STRPIndications:Di abetes mellitus, type II (HCC) Use up to [...] goal of less than 8.0% ([facility]) Use with insulins - 4 [...] 04/05/2022 Active Furosemide 40 MG Oral Tablet (Lasix)Indications :Edema, unspecified type TAKE 1 TABLET BY MOUTH ON SATURDAY, SATURDAY AND SATURDAY (MAY TAKE 1 DAILY FOR 3 DAYS IF NEEDEED FOR SWELLING) 90 Tablet 3 10/01/2022 Active Brimonidine Tartrate-Timolol 0.2-0.5 % Ophthalmic Solution (Combigan)Indicati ons:Stable angina ([facility]),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[facility]),Other specified glaucoma one drop to both eyes twice daily 10 mL 3 2022 Active Insulin Lispro (1 Unit Dial) 100 UNIT/ML Subcutaneous Solution Pen-injector (HumaLOG KwikPen)Indication s:Type 2 diabetes mellitus with hemoglobin A1c goal of less than 8.0% ([facility]) inject 12 units under the [...] 05/13/2023 Active Finasteride 5 MG Oral Tablet (Proscar)Indicatio ns:BPH without obstruction/lower urinary tract symptoms TAKE ONE TABLET EVERY DAY 90 Tablet 1 05/13/2023 Active FreeStyle Sheree 2 SensorIndications: Type 2 diabetes mellitus with hemoglobin A1c goal of less than 7.5% (HCC) Use as directed. Change every 14 days. 3 Each 06/06/2023 Active Incontinence Brief Large As directed 18 Each 06/07/2023 Active FreeStyle Sheree 2 Vandemere Device Use as directed. 1 Each 2 [...] CAPSULE BY MOUTH EVERY DAY 90 Capsule 08/27/2023 Active guaiFENesin ER 600 MG Oral Tablet Extended Release 12 Hour (Mucinex)Indicatio ns:Bronchitis, complicated Take 1 Tablet by mouth 2 times a day as needed for Congestion. Take with plenty of water. Do not cut, crush or chew 40 Tablet 09/12/2023 Active Famotidine 20 MG Oral Tablet (Pepcid) TAKE ONE TABLET TWICE DAILY 180 Tablet 3 10/01/2023 Active Cefuroxime Axetil 500 MG Oral Tablet (Ceftin)Indication s:Bronchitis, complicated,Hypert rophic toenail,Cellulitis of great toe of right foot Take 1 Tablet by mouth 2 times a day. 14 Tablet 09/12/2023 Discontinue d(Medicatio n List Clean Up) documented as of this [...] inactive term ACTIVE CASE MANAGEMENT-Flaco Roberts RN [phone]. 05/05/2008 12/12/2009 DIAB RENAL MANIF ADULT 09/17/200707/02 [...] mRNA, LNP-s, No Pre serve, 2-Dose Series ([employer]) 10/26/2020,10/05/2020 COVID-19, MRNA-LNP, 23-24, P F, 30 MCG/0.3 mL, 12 YRS AND ABOVE, IM ([employer]-Comirnaty) 01/30/2023 Covid-19, Mrna, Lnp-s, Pf, B ivalent, [...] Sign Reading Time Taken Comments Blood Pressure 102/60 10/07/2023 9:10 AM EDT Pulse 54 10/07/2023 9:10 AM EDT Temperature 36.1 C (96.9 F) 10/07/2023 9:10 AM ED T Respiratory Rate 16 10/07/2023 9:10 AM EDT Oxygen Saturation 95% 10/07/2023 9:10 AM EDT Inhaled Oxygen Concentration - - Weight - - Height - - Body Mass Index - - documented in this encounter Progress Notes * Dimitri III, Manjeet Adkins MD - 10/07/2023 9:41 AM EDT Subjective: Nelson Arenas is a 88 year old male. Chief Complaint Patient presents with Re-Check HPI: Follow-up several concerns diabetes mellitus last A1c was improved somewhat has a hallucinations often sees baby's has seen water on the floor that is not vthereand does not want to step in it eyes were checked in May does have significant retinopathy neuropathy currently denying chestpains no shortness of breath but activity significantly limited no swelling of his ankles no bleeding urine or bowels daughter's responding for him diabetic eye exam reviewed PMH: Patient Active Problem List Diagnosis Diabetic neuropathy (HCC) ADVANCE DIRECTIVE INFORMATION Other specified glaucoma Urinary frequency DYSLIPIDEMIA, GOAL LDL BELOW 100 Stable angina ([facility]) Type 2 diabetes mellitus with hemoglobin A1c goal of less than 8.0% ([facility]) Essential hypertension with goal blood pressure less than 140/90 Essential tremor Diabetes mellitus with background retinopathy ([facility]) Macular degeneration, 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 disease, with long-term current use of insulin([facility]) Hypertensive kidney disease with CKD stage III ([facility]) Vascular dementia without behavioral disturbance ([facility]) Gastroesophageal reflux disease without esophagitis Primary open angle glaucoma (POAG) of both eyes, severe stage Diabetic polyneuropathy associated with diabetes mellitus due to underlying condition ([facility]) Food insecurity Inavailability of community resources Type 2 diabetes mellitus with stage 3b chronic kidney disease, with long-term current use of insulin ([facility]) Current Outpatient Medications Medication Sig Dispense Refill ONETOUCH DELICA LANCING DEV MISC Use to test blood sugar 3 times daily 1 Device 0 ONETOUCH DELICA LANCETS FINE MISC test blood sugar four times daily as directed; dx 250.00 100 Each11 ONETOUCH ULTRA BLUE STRP Use up to four times a day as directed Dx 250.00 Insulin Dependent Sliding Scale 100 Strip 11 clobetasol propionate (TEMOVATE) 0.05 % ointment Apply topically to affected area 2 times a day. Toaffected area for up to two weeks. 30 g 1 BD Pen Needle Short U/F 31G X 8 MM (Insulin Pen Needle) Use with insulins - 4 times a day. DX e11.9400 Each 3 Triamcinolone Acetonide 0.1 % External Cream (Aristocort) Apply topically to affected area 2 times a day . To affected area. 60 g 5 Nitroglycerin 0.4 MG Sublingual Tablet Sublingual (Nitrostat) 1 tablet ever 5 min as needed with chest pain up to 3 doses in 15 minutes 25 Tablet 11 Aspirin Low Dose 81 MG Oral Tablet Delayed Release (aspirin enteric coated) TAKE ONE TABLET BY MOUTH EVERY DAY 30 Tablet 3 Diclofenac Sodium 1 % External Gel (Voltaren) Apply topically to affected area 3 times a day. Applyto SHOULDER 100 g 8 Furosemide 40 MG Oral Tablet (Lasix) TAKE 1 TABLET BY MOUTH ON SATURDAY, SATURDAY AND SATURDAY (MAY TAKE 1 DAILY FOR 3 DAYS IF NEEDEED FOR SWELLING) 90 Tablet 3 Brimonidine Tartrate-Timolol 0.2-0.5 % Ophthalmic Solution (Combigan) one drop to both eyes twice daily 10 mL 3 Insulin Lispro (1 Unit Dial) 100 UNIT/ML Subcutaneous Solution Pen-injector (HumaLOG KwikPen) inject 12 units under the skin before breakfast, 10 units before lunch nad 13 units before supper 45 mL 1 Benzonatate 100 MG Oral Capsule (Tessalon Landy) Take 1 Capsule by mouth 3 times a day as needed for Cough. Do not cut, crush, or chew. 50 Capsule 1 Insulin Glargine Solostar 100 UNIT/ML Subcutaneous Solution Pen-injector (Lantus SoloStar) Inject 30 Units under the skin daily. 30 mL 1 Vitamin D High Potency 25 MCG (1000 UT) Oral Capsule (Cholecalciferol) TAKE 1 TABLET BY MOUTH EVERYOTHER DAY 30 Capsule 3 Sertraline HCl 50 MG Oral Tablet (Zoloft) TAKE 1/2 TABLET EVERY DAY 45 Tablet 1 Gabapentin 100 MG Oral Capsule (Neurontin) TAKE 2 CAPSULES IN THE EVENING 180 Capsule 1 Metoprolol Tartrate 25 MG Oral Tablet (Lopressor) TAKE 1/2 TABLET TWICE DAILY 90 Tablet 1 Finasteride 5 MG Oral Tablet (Proscar) TAKE ONE TABLET EVERY DAY 90 Tablet 1 FreeStyle Sheree 2 Sensor Use as directed. Change every 14 days. 3 Each 11 Incontinence Brief Large As directed 18 Each 11 FreeStyle Sheree 2 Vandemere Device Use as directed. 1 Each 2 Terazosin HCl 2 MG Oral Capsule TAKE ONE CAPSULE AT BEDTIME 90 Capsule 1 Gabapentin 300 MG Oral Capsule (Neurontin) TAKE TWO CAPSULES BY MOUTH TWICE DAILY 360 Capsule 3 Donepezil HCl 10 MG Oral Tablet (Aricept) TAKE ONE TABLET BY MOUTH EVERY DAY 90 Tablet 3 Rosuvastatin Calcium 20 MG Oral Tablet (Crestor) TAKE ONE TABLET BY MOUTH EVERY DAY 90 Tablet 3 Omeprazole 20 MG Oral Capsule Delayed Release (PriLOSEC) TAKE ONE CAPSULE BY MOUTH EVERY DAY 90 Capsule 3 guaiFENesin ER 600 MG Oral Tablet Extended Release 12 Hour (Mucinex) Take 1 Tablet by mouth 2 timesa day as needed for Congestion. Take with plenty of water. Do not cut, crush or chew 40 Tablet 0 Famotidine 20 MG Oral Tablet (Pepcid) TAKE ONE TABLET TWICE DAILY 180 Tablet 3 No current facility-administered medications for this visit. 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) DM type 1, goal A1c below 7 02/25/1997 Essential and other specified forms of tremor Other specified glaucoma Stage 3a chronic kidney disease (HCC) Type 2 diabetes mellitus with stage 3 chronic kidney disease, with long-term current use of insulin(HCC) 09/04/2016 Vascular dementia without behavioral disturbance ([facility]) 03/02/2019 Past Surgical History: Procedure Laterality Date COLORECTAL CANCER SCREEN; COLON 2000 wnl CYSTOSCOPY DIABETIC EYE EXAM 10/30/12 REMOVE TONSILS & ADENOIDS, AGE 12+ Tonsillectomy/Adenoids,12+ Y/O TREATMENT OF EXTENSIVE RETINOPATHY, PHOTOCOAGULATION Laser Photocoagulation Objective: The patient is a 88 year old male BP 102/60 | Pulse 54 | Temp 36.1 C (96.9 F) (Tympanic) | Resp 16 | SpO2 95% General: alert, healthy, and no distress Eye Exam: Left pupil cloudy Oropharynx: no exudate, no erythema, lips, buccal mucosa, and tongue normal, and mucous membranes are moist Heart: regular rate & rhythm, no murmur, and no gallops Lungs: lungs clear to auscultation Extremities: no edema, no clubbing, no cyanosis ASSESSMENT: (E11.42) Diabetic polyneuropathy associated with type 2 diabetes mellitus (HCC) (primary encounter diagnosis) (R44.3) Hallucinations (Z79.899) senior living use of drug PLAN: Will have daughter's call Ophthalmology and report the hallucinations maybe retinal issue check multiple labs read hallucinations get pharmacy polypharmacy recommendations call if problems repeat [id number] diabetes need microalbumin request for incontinence pads reportedly sent in October 03 immunizations discussed encourage Shingrix COVID RSV flu they will check with pharmacy Total time 42 minutes Follow up in 3 month(s). Manjeet Mosley III, MD documented in this encounter Nursing Notes * Obdulia Thomas LPN - 10/07/2023 9:05 AM EDT Nelson Dagoberto presents for 4 month recheck. Medications & HM reviewed. documented in this encounter Plan of Treatment Upcoming Encounters Date Type Department Care Team (Late st Contact Info) Description 11/14/2023 11:00 AM EDT Telemedicine Pharmacy, [address] [place] [address] [place] [address] 01/21/2024 8:40 AM EST Office [facility] [address] [facility] [address] Manjeet Mosley III, MD [address] [facility] [place] [address] 07/06/2024 8:30 AM EDT Nurse Only Ancillary [address] [place] [address] Gauri, Nurse [address] [place] [address] Pending Results Name Type Priority Associated Diagnoses Date /Time PHOSPHORUS Lab Routine Diabetic polyneuropathy associated with type 2 diabetes mellitus (HCC) Hallucinations 10/07/2023 9:51 AM EDT COMPREHENSIVE METABOLIC PANEL Lab Routine Diabetic polyneuropathy associated with type 2 diabetes mellitus (HCC) Hallucinations 10/07/2023 9:51 AM EDT VITAMIN B12 Lab Routine Diabetic polyneuropathy associated with type 2 diabetes mellitus (HCC) Hallucinations termination clerk use of drug 10/07/2023 9:51 AM EDT ERYTHROCYTE SEDIMENTATION RATE (ESR) Lab Routine Diabetic polyneuropathy associated with type 2 diabetes mellitus (HCC) Hallucinations 10/07/2023 9:51 AM EDT MAGNESIUM Lab Routine Diabetic polyneuropathy associated with type 2 diabetes mellitus (HCC) Hallucinations 10/07/2023 9:51 AM EDT Scheduled Orders Name Type Priority Associated Diagnoses Orde r Schedule PHOSPHORUS Lab Routine Diabetic polyneuropathy associated with type 2 diabetes mellitus (HCC) Hallucinations Expected: 10/07/2023 (Approximate), Expires: 10/06/2024 ALBUMIN / CREATININE RATIO, URINE Lab Routine Diabetic polyneuropathy associated with type 2 diabetes mellitus (HCC) Hallucinations Expected: 10/07/2023 (Approximate), Expires: 10/06/2024 COMPREHENSIVE METABOLIC PANEL Lab Routine Diabetic polyneuropathy associated with type 2 diabetes mellitus (HCC) Hallucinations Expected: 10/07/2023 (Approximate), Expires: 10/06/2024 VITAMIN B12 Lab Routine Diabetic polyneuropathy associated with type 2 diabetes mellitus (HCC) Hallucinations termination clerk use of drug Expected: 10/07/2023 (Approximate), Expires: 10/06/2024 ERYTHROCYTE SEDIMENTATION RATE (ESR) Lab Routine Diabetic polyneuropathy associated with type 2 diabetes mellitus (HCC) Hallucinations Expected: 10/07/2023 (Approximate), Expires: 10/06/2024 MAGNESIUM Lab Routine Diabetic polyneuropathy associated with type 2 diabetes mellitus (HCC) Hallucinations Expected: 10/07/2023 (Approximate), Expires: 10/06/2024 Scheduled Referrals Name Type Priority Associated Diagnoses [...] Additional history exists CKD PHOS USE SMARTSET 17173 01/31/202407/2022, 01/03/2022, 01/25/2021, Additional history exists Diabetic Foot Exam 06/03/2024 06/04/2023 (D one elsewhere), 06/28/2022, 02/06/2021, Additional history exists CKD HGB USE SMARTSET 43139 06/13/202410/06, 06/14/2023, 01/30/2023, Additional history exists Adult [...] Not on filedocumented as of this encounter Results * (ABNORMAL) CBC (10/07/2023 9:51 AM EDT) Pathologist [facility] WBC 6.74 4.00 - 10.80 K/uL 10/07/2023 9:56 AM EDT [facility] [place] [facility]- RBC 3.74 4.50 - 5.25 M/uL 10/07/2023 9:56 AM EDT [facility] [place] [facility]- HGB 11.1(L) 14.0 - 16.8 g/dL 10/07/2023 9:56 AM EDT [facility] [place] [facility]- HCT 35.4(L) 40.0 - 48.4 % 10/07/2023 9:56 AM EDT [facility] [place] [facility]- MCV 94.7 82.0 - 99.5 fL 10/07/2023 9:56 AM EDT [facility] [place] [facility]- MCH 29.7 27.0 - 34.0 pg 10/07/2023 9:56 AM EDT [facility] [place] [facility]- MCHC 31.4 32.0 - 36.0 g/dL 10/07/2023 9:56 AM EDT [facility] [place] [facility]- RDW 14.3 11.5 - 15.5 % 10/07/2023 9:56 AM EDT [facility] [place] [facility]- PLT 224 140 - 400 K/uL 10/07/2023 9:56 AM EDT [facility] [place] [facility]- MPV 10.5 6.6 - 11.1 fL 10/07/2023 9:56 AM EDT [facility] [place] [facility]-02 Blood Venous blood specimen / Unknown Venipuncture / Unknown 10/07/2023 9:51 AM EDT 10/07/2023 9:51 AM EDT Manjeet Mosley III, MD LAB BLOOD ORDERABLE S [facility]-02 [address] [place] [address] documented in this encounter Visit Diagnoses Diagnosis Diabetic polyneuropathy associated with type 2 diabetes mellitus (HCC)- Primary Hallucinations termination clerk use of drug Encounter for long-term (current) use of other medications documented in this encounter Care Teams Lieutenant Shift Supervisor Relationship Specialty Start Date End Date Manjeet Mosley III, MD [address] [facility] [address] PCP - General 11/18/06 documented as of this encounter"
--- OUTSIDE RECORDS SUMMARY | 2024-01-26 10:41 | External Medical Summary ---
Author Name Unknown Address Unknown Organization [id number]:[facility] [place] [address] [place] [address] Laboratory Report Ordering Provider Test Date Status HUSSEIN TORRES III 10/07/2023 09:51:01 Final Observation Date Value Abnormality Reference (Units ) Status BUN 10/07/2023 09:51:01 40 Above high normal 6-20 (mg/dL) Final Creatinine 10/07/2023 09:51:01 1.5 Above high normal 0.6-1.2 (mg/dL) Final Glomerular filtration rate/1.73 sq M.predicted [Volume Rate/Area] in Serum, Plasma or Blood by Creatinine-based formula (CKD-EPI) 10/07/2023 09:51:01 45 Below low normal >=60 (mL/min) Final eGFR is calculated based on the CKD-EPI 2020 equation. Sodium 10/07/2023 09:51:01 143 135-146 (m mol/L) Final Potassium 10/07/2023 09:51:01 4.5 3.5-5.1 (m mol/L) Final Cl 10/07/2023 09:51:01 105 98-107 (mm ol/L) Final CO2 10/07/2023 09:51:01 27 22-32 (mmo l/L) Final Anion gap 10/07/2023 09:51:01 11 7-15 (mmol /L) Final Glucose 10/07/2023 09:51:01 91 70-120 (mg /dL) Final Albumin 10/07/2023 09:51:01 3.6 Below low normal 3.8 -5.0 (g/dL) Final AST (Aspartate aminotransferase) 10/07/2023 09:51:01 27 10-50 (U/L) Fin al Alk Phos 10/07/2023 09:51:01 85 35-130 (U/ L) Final Bilirubin, Total 10/07/2023 09:51:01 0.2 <=1 .2 (mg/dL) Final Calcium 10/07/2023 09:51:01 9.2 8.4-10.2 ( mg/dL) Final Protein 10/07/2023 09:51:01 6.5 6.0-8.3 (g /dL) Final ALT (Alanine aminotransferase) 10/07/2023 09:51:01 36 10-50 (U/L) Nirmal power Performing Location [facility] [place] [address]
--- OUTSIDE RECORDS SUMMARY | 2024-01-26 10:41 | External Medical Summary ---
Author Name Unknown Address Unknown Organization K01:[facility] - [address] [place] [address] Laboratory Report Ordering Provider Test Date Status HUSSEIN TORRES III 10/07/2023 09:51:01 Final Observation Date Value Abnormality Reference (Units ) Status Erythrocyte sedimentation rate by Photometric method 10/07/2023 09:51:01 39 Above high normal <20 (mm/hour) Final Performing Location [facility] - [address] [place] [address]
--- OUTSIDE RECORDS SUMMARY | 2024-01-26 10:41 | External Medical Summary ---
Author Name Unknown Address Unknown Organization K01:[facility] [place] - [address] [place] [address] Laboratory Report Ordering Provider Test Date Status HUSSEIN TORRES III 10/07/2023 09:51:01 Final Observation Date Value Abnormality Reference (Units ) Status Vitamin B12 10/07/2023 09:51:01 [phone] (pg/mL) Final Performing Location [facility] - [address] [place] [address]
--- OUTSIDE RECORDS SUMMARY | 2024-01-26 10:41 | External Medical Summary | Summary of Care ---
Author Name Unknown Organization [facility] Address [address] [place] [address] Phone [phone] Care Team Providers Care Sed Middle [employer] Teacher Name Role Phone Dimitri EMERY MD, Manjeet Adkins Primary Care Provider [phone] Encounter Details Date Type Department Care Team (Late st Contact Info) Description 09/18/2023 Orders Only Family Practice [facility] [address] [place] [address] Manjeet Mosley III, MD [address] [place] [address] Allergies Active Allergy Reactions Criticality Noted Date [...] goal of less than 8.0% ([facility]) Use with insulins - 4 [...] Ophthalmic Solution (Combigan)Indication s:Stable angina ([facility]),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 1 Each 2 [...] inactive term ACTIVE CASE MANAGEMENT-Flaco Roberts RN [phone]. 05/05/2008 12/12/2009 DIAB RENAL MANIF ADULT 09/17/200707/02 [...] mRNA, LNP-s, No Pre serve, 2-Dose Series ([employer]) 10/26/2020,10/05/2020 COVID-19, MRNA-LNP, 23-24, P F, 30 MCG/0.3 mL, 12 YRS AND ABOVE, IM ([employer]) 01/30/2023 Covid-19, Mrna, Lnp-s, Pf, B ivalent, [...] Description 09/19/2023 9:30 AM EDT Telemedicine Pharmacy, [address] [place] [address] [place] [address] 10/07/2023 9:20 AM EDT Office Visit Family Practice [facility] [address] [place] [address] Manjeet Mosley III, MD [address] [facility] [address] [facility] [address] 07/06/2024 8:30 AM EDT Nurse Only Ancillary [address] [place] [address] [place], Nurse [address] [place] [address] Health Maintenance Due Date Last Done Comments [...] Additional history exists CKD PHOS USE SMARTSET 63927 01/31/202407/2022, 01/03/2022, 01/25/2021, Additional history exists Diabetic Foot Exam 06/03/2024 06/04/2023 (D one elsewhere), 06/28/2022, 02/06/2021, Additional history exists CKD HGB USE SMARTSET 47263 06/13/202406/13, 01/30/2023, 01/03/2022, Additional history exists Depression Screening 07/02/2024 07/03/2023, 07/03/19 24 Diabetic Eye Exam 09/17/2024 08/01/2023, , 04/05/2020, Additional history exists Pneumococcal Vaccine: 65+ Years [...] Procedure Name Priority Date/Time Associated Diagnosis Comments DIABETIC EYE EXAM Routine 08/01/2023 documented in this encounter Results * DIABETIC EYE EXAM (08/01/2023) 08/01/2023 History Per Patient OTHER OUTSIDE LAB (SEE SCANNED REPORT) documented in this encounter Care Teams Sed Middle [employer] Teacher Relationship Specialty Start Date End Date Manjeet Mosley III, MD [address] [facility] [place] [address] PCP - General 11/18/06 documented as of this encounter
--- OUTSIDE RECORDS SUMMARY | 2024-01-26 10:41 | External Medical Summary | Summary of Care ---
Author Name Unknown Organization [facility] Address [address] [place] [address] Phone [phone] Care Team Providers Care Corporate Security Manager Name Role Phone Dimitri EMERY MD, Manjeet Adkins Primary Care Provider [phone] Encounter Details Date Type Department Care Team (Late st Contact Info) Description 09/24/2023 Orders Only PATIENT PORTAL DO NOT DELETE THIS DEPT USED BY [place] [id number] Allergies Active Allergy Reactions Criticality Noted Date Comments Metformin Hydrochloride 11/14/2004 GI SE Salicylates 03/10/2002 documented as of this encounter (statuses as of 09/24/2023) Medications Medication Sig Dispensed Refills Start Date [...] A1c goal of less than 8.0% ([facility]) Use with insulins - [...] % Ophthalmic Solution (Combigan)Indication s:Stable angina ([facility]),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[facility]),Other specified glaucoma one drop to both eyes twice daily 10 mL 3 2022 Active Famotidine 20 MG Oral Tablet (Pepcid) TAKE ONE TABLET BY MOUTH TWICE DAILY 180 Tablet 3 10/25/2022 Active Insulin Lispro (1 Unit Dial) 100 UNIT/ML Subcutaneous Solution Pen-injector (HumaLOG KwikPen)Indications: Type 2 diabetes mellitus with hemoglobin A1c goal of less than 8.0% ([facility]) inject 12 units under [...] A1c goal of less than 8.0% ([facility]) Inject 30 Units under [...] TAKE 1/2 TABLET TWICE DAILY 90 Tablet 05/13/2023 Active Finasteride 5 MG Oral Tablet (Proscar)Indications :BPH without obstruction/lower urinary tract symptoms TAKE ONE TABLET EVERY DAY 90 Tablet 1 05/13/2023 Active FreeStyle Sheree 2 SensorIndications:Ty pe 2 diabetes mellitus with hemoglobin A1c goal of less than 7.5% ([facility]) Use as directed. Change every 14 days. 3 Each 06/06/2023 Active Incontinence Brief Large As directed 18 Each 06/07/2023 Active FreeStyle Sheree 2 [place] Device Use as directed. 1 Each 2 [...] MOUTH EVERY DAY 90 Capsule 08/27/2023 Active Cefuroxime Axetil 500 MG Oral [...] as of this encounter (statuses as of 09/24/2023) Active Problems Problem Noted Date Diagnosed Date [...] as of this encounter (statuses as of 09/24/2023) Resolved Problems Problem Noted Date Diagnosed Date [...] inactive term ACTIVE CASE MANAGEMENT-Flaco Roberts RN [phone]. 05/05/2008 12/12/2009 DIAB RENAL MANIF ADULT 09/17/200707/02 [...] as of this encounter (statuses as of 09/24/2023) Immunizations Name Administration Dates Next Due COVID-19 mRNA, LNP-s, No Pre serve, 2-Dose Series ([employer]) 10/26/2020,10/05/2020 COVID-19, MRNA-LNP, 23-24, P F, 30 MCG/0.3 mL, 12 YRS AND ABOVE, IM ([facility] [employer]) 01/30/2023 Covid-19, Mrna, Lnp-s, Pf, B [...] 9:20 AM EDT Office Visit Family Practice [facility] [address] [place] [address] Manjeet Mosley III, MD [address] [place] [address] 11/14/2023 11:00 AM EDT Telemedicine Pharmacy, [address] [place] [address] [place] [address] 07/06/2024 8:30 AM EDT Nurse Only Ancillary [address] [place] [address] [place], Nurse [address] [place] [address] Health Maintenance Due Date Last Done Comments DTaP,Tdap,and Td Vaccines (1 - Tdap) 08/03/2008 08/02/2008 Zoster Vaccines (3 of 3) 06/12/2019 04/17/2019, 03/29 Albumin/Creatinine Ratio 09/18/2022 022, 08/23/2020, 01/26/2019, Additional history exists COVID-19 Vaccine ( - 2022- season) 2023 01/30/2023, 03/01/2022, 10/26/2020, Additional history exists Influenza Vaccine (FLU shot) (#1) 2023 11/27/2022, 01/03/2022, 01/25/2021, Additional history exists HbA1c 12/14/2023 06/14/2023, 07/2022, 07/31/2022, Additional history exists CKD PHOS USE SMARTSET 34410 01/31/202407/2022, 01/03/2022, 01/25/2021, Additional history exists Diabetic Foot Exam 06/03/2024 06/04/2023 (D one elsewhere), 06/28/2022, 02/06/2021, Additional history exists CKD HGB USE SMARTSET 17464 06/13/202406/13, 01/30/2023, 01/03/2022, Additional history exists Depression Screening 07/02/2024 07/03/2023, 07/03/19 24 Diabetic Eye Exam 07/31/2024 08/01/2023, , 04/05/2020, Additional history exists Pneumococcal [...] filedocumented as of this encounter Care Teams Corporate Security Manager Relationship Specialty Start Date End Date Manjeet Mosley III, MD [address] [place] [address] PCP - General 11/18/06 documented as of this encounter
--- OUTSIDE RECORDS SUMMARY | 2024-01-26 10:41 | External Medical Summary | Summary of Care ---
Author Name Unknown Organization [facility] Address [address] [place] [facility] [place] [address] Phone [phone] Care Team Providers Care Investment Banking Associate Name Role Phone Dimitri EMERY MD, Manjeet Adkins Primary Care Provider [phone] Reason for Visit * Reason Comments Dosage Adjustment Via Phone (anticoag Cl inic) Diabetes Follow-Up Encounter Details Date Type Department Care Team (Late st Contact Info) Description 09/17/2023 2:30 PM EDT Telemedicine Pharmacy, [address] [place] [address] [place] [address] Type 2 diabetes mellitus with hemoglobin A1c goal of less than 7.5% ([facility])* Allergies Active Allergy Reactions Criticality Noted Date Comments Metformin Hydrochloride 11/14/2004 GI SE Salicylates 03/10/2002 documented as of this encounter (statuses as of 09/17/2023) Medications Medication Sig Dispensed Refills Start Date End Date Status ONETOUCH DELICA LANCING DEV MISCIndications:DM type 2, goal A1C 7-8 Use to test blood sugar 3 times daily 1 Device 0 01/15/2012 Active ONETOUCH DELICA LANCETS FINE MISCIndications:DM type 2, goal A1C below 8.0 test blood sugar four times daily as directed; dx 250.00 100 Each 04/02/2014 Active ONETOUCH ULTRA BLUE STRPIndications:Diab etes mellitus, type II ([facility]) Use up to four times [...] hemoglobin A1c goal of less than 8.0% ([facility]) Use with insulins - 4 times a day. DX e11.9 400 Each 09/13/2021 Active Triamcinolone Acetonide 0.1 % External Cream (Aristocort) Apply topically to affected area 2 times a day . To affected area. 60 g 09/13/2021 Active Nitroglycerin 0.4 MG Sublingual Tablet [...] 0.2-0.5 % Ophthalmic Solution (Combigan)Indication s:Stable angina ([facility]),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[facility]),Other specified glaucoma one drop to both eyes twice daily 10 mL 3 2022 Active Famotidine 20 MG Oral Tablet (Pepcid) TAKE ONE TABLET BY MOUTH TWICE DAILY 180 Tablet 10/25/2022 Active Insulin Lispro (1 Unit Dial) [...] 18 Each 06/07/2023 Active FreeStyle Sheree 2 [place] Device Use as directed. 1 Each 2 [...] as of this encounter (statuses as of 09/17/2023) Active Problems Problem Noted Date Diagnosed Date [...] as of this encounter (statuses as of 09/17/2023) Resolved Problems Problem Noted Date Diagnosed Date [...] term ACTIVE CASE MANAGEMENT-Flaco valeryaga Roberts RN [phone]. 05/05/2008 12/12/2009 DIAB RENAL MANIF ADULT 09/17/200707/02 [...] as of this encounter (statuses as of 09/17/2023) Immunizations Name Administration Dates Next Due COVID-19 mRNA, LNP-s, No Pre serve, 2-Dose Series ([employer]) 10/26/2020,10/05/2020 COVID-19, MRNA-LNP, 23-24, P F, 30 MCG/0.3 mL, 12 YRS AND ABOVE, IM ([facility]) 01/30/2023 Covid-19, Mrna, Lnp-s, Pf, B [...] Progress Notes * Carol Paez RPh - 09/17/2023 2:34 PM EDT After connecting to the patient via telephone, the patient was identified by name and date of . Patient was then informed that this was a telephone call only visit. The patient agreed to participate. Visit Disposition: Routine follow-up Total call duration was 15 minutes. Called and spoke with patient's daughter, Brenda ([phone]). Medication Therapy [facility] - Diabetes Management Progress Note Nelson Arenas, identified by name and date of , is a 87 year old male being seen for diabetes management/education. Patient presents for return diabetic visit. Called and spoke to daughter, Brenda. Did not bring in [employer] Interpreting for download this week.Agreeable to bring in tomorrow. Call placed to follow up later this week. Diabetic Medications: Lantus pen - 30 units daily in evening Humalog pen - 8 units before breakfast, 8 units before Lunch, 13 units before supper eGFR 48 01/30/23 Carol Paez RPh, PharmD Clinical Pharmacist - Arboreal Scientist Medication Therapy [facility] 09/17/2023, 2:36 PM [phone] documented in this encounter Plan of Treatment Upcoming Encounters Date Type Department Care Team (Late st Contact Info) Description 09/19/2023 9:30 AM EDT Telemedicine Pharmacy, [address] [place] [address] [place] [address] 10/07/2023 9:20 AM EDT Office Visit Family Practice [facility] [address] [facility] [place] [address] Manjeet Mosley III, MD [address] [place] [address] 07/06/2024 8:30 AM EDT Nurse Only Ancillary [address] [place] [address] [place], Nurse [address] [place] [address] Health Maintenance Due Date Last Done Comments [...] Additional history exists CKD PHOS USE SMARTSET 40254 01/31/202407/2022, 01/03/2022, 01/25/2021, Additional history exists Diabetic Foot Exam 06/03/2024 06/04/2023 (D one elsewhere), 06/28/2022, 02/06/2021, Additional history exists CKD HGB USE SMARTSET 23496 06/13/202406/13, 01/30/2023, 01/03/2022, Additional history exists Depression [...] hemoglobin A1c goal of less than 7.5% (HCC)- Primary documented in this encounter Care Teams Investment Banking Associate Relationship Specialty Start Date End Date Manjeet Mosley III, MD [address] [place] [address] PCP - General 11/18/06 documented as of this encounter
--- OUTSIDE RECORDS SUMMARY | 2024-01-26 10:41 | External Medical Summary | Summary of Care ---
Author Name Unknown Organization [facility] Address [address] [place] [address] Phone [phone] Care Team Providers Care Finisher Hand Name Role Phone Dimitri EMERY MD, Manjeet Adkins Primary Care Provider [phone] Reason for Visit * Reason Onset Date Comments Forms Request 09/09/2023 Encounter Details Date Type Department Care Team (Late st Contact Info) Description 09/09/2023 Telephone Family Practice [facility] [address] [facility] [place] [address] Manjeet Mosley III, MD [address] [place] [address] Forms Request Allergies Active Allergy Reactions Criticality [...] BLUE STRPIndications:D luz marina mellitus, type II ([facility]) Use up to four times a day [...] goal of less than 8.0% ([facility]) Use with insulins - 4 times a [...] 0.2-0.5 % Ophthalmic Solution (Combigan)Indicat ions:Stable angina ([facility]),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[facility]),Other specified glaucoma one drop to both eyes [...] 18 Each 4 Active FreeStyle Sheree 2 [place] Device Use as directed. 1 Each 2 [...] inactive term ACTIVE CASE MANAGEMENT-Flaco Roberts RN [phone]. 05/05/2008 12/12/2009 DIAB RENAL MANIF ADULT 09/17/200707/02 [...] MCG/0.3 mL, 12 YRS AND ABOVE, IM ([employer]) 01/30/2023 Covid-19, Mrna, Lnp-s, Pf, B ivalent, [...] encounter Miscellaneous Notes * Telephone Encounter - Obdulia Thomas LPN - 09/17/2023 9:59 AM EDT Completed & faxed; confirmation received. * Telephone Encounter - Lele Joseph DO - 09/13/2023 4:59 PM EDT On your desk * Telephone Encounter - Jody Crain MED ASSIST - 09/12/2023 1:21 PM EDT Forms are [...] hour turn-around time. * Telephone Encounter - Jody Crain MED ASSIST - 09/11/2023 11:23 AM EDT Please see patient message. Thank you! * Telephone Encounter - Virginia Ashford OSA - 09/09/2023 10:54 AM EDT Viv from [facility] is calling to verify status of forms for diabetic supplies for patient that was sent on 09/06/23. Viv states that patient will need Freestyle sheree supply and will forms signed by doctor. Please advise. documented in this encounter Plan of Treatment Upcoming Encounters Date Type Department Care Team (Late st Contact Info) Description 09/17/2023 2:30 PM EDT Telemedicine Pharmacy, [address] [place] [address] [place] [address] 10/07/2023 9:20 AM EDT Office Visit Family Practice [facility] [address] [place] [address] Manjeet Mosley III, MD [address] [facility] [place] [address] 07/06/2024 8:30 AM EDT Nurse Only Ancillary [address] [place] [address] [place], Nurse [address] [place] [address] Health Maintenance Due Date Last Done Comments [...] 01/25/2021, Additional history exists HbA1c 12/14/2023 06/14/2023, 12/07/2022, 07/31/2022, Additional history exists CKD PHOS USE SMARTSET 53092 01/31/2024 12/0 07/2022, 01/03/2022, 01/25/2021, Additional history exists Diabetic Foot Exam 06/03/2024 06/04/2023 (D one elsewhere), 06/28/2022, 02/06/2021, Additional history exists CKD HGB USE SMARTSET 41382 06/13/202406/13, 01/30/2023, 01/03/2022, Additional history exists Depression [...] filedocumented as of this encounter Care Teams Finisher Hand Relationship Specialty Start Date End Date Manjeet Mosley III, MD [address] [facility] [place] [place] [address] PCP - General 11/18/06 documented as of this encounter
--- OUTSIDE RECORDS SUMMARY | 2024-01-26 10:41 | External Medical Summary ---
Author Name Unknown Address Unknown Organization K01:[facility] [place] - [address] [facility] [place] [address] Laboratory Report Ordering Provider Test Date Status HOWARD TREVINO 10/07/2023 09:51:01 Final Observation Date Value Abnormality Reference (Units ) Status HbA1C 10/07/2023 09:51:01 8.2 Above high normal 4. 0-5.6 (%) Final The use of HbA1c to monitor glycemic status is based on normal hemoglobin and HbA composition. This test should not be used in patients with abnormal hemoglobin that affects the half life of the red blood cell or the in vivo glycation rates. Glucose, estimated average 10/07/2023 09:51:01 189 Above high normal <126 (mg/dL) Nirmal power Performing Location [facility] [place] - [address] [facility] [address]
--- OUTSIDE RECORDS SUMMARY | 2024-01-26 10:41 | External Medical Summary | Summary of Care ---
Author Name Unknown Organization [facility] Address [address] [place] [facility] [place] [address] Phone [phone] Care Team Providers Care Area Attendant Name Role Phone Dimitri EMERY MD, Manjeet Adkins Primary Care Provider [phone] Reason for Visit * Reason Comments Dosage Adjustment Via Phone (anticoag Cl inic) Diabetes Follow-Up Encounter Details Date Type Department Care Team (Late st Contact Info) Description 09/19/2023 9:30 AM EDT Telemedicine Pharmacy, [address] [place] [address] [place] [address] Type 2 diabetes mellitus with hemoglobin A1c goal of less than 7.5% ([facility])* Allergies Active Allergy Reactions Criticality Noted Date Comments Metformin Hydrochloride 11/14/2004 GI SE Salicylates 03/10/2002 documented as of this encounter (statuses as of 09/19/2023) Medications Medication Sig Dispensed Refills Start Date [...] ULTRA BLUE STRPIndications:Diab etes mellitus, type II ([facility]) Use up to four times a [...] A1c goal of less than 8.0% ([facility]) Use with insulins - 4 times [...] 0.2-0.5 % Ophthalmic Solution (Combigan)Indication s:Stable angina ([facility]),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[facility]),Other specified glaucoma one drop to both [...] 18 Each 06/07/2023 Active FreeStyle Sheree 2 [place] Device Use as directed. 1 Each 2 [...] as of this encounter (statuses as of 09/19/2023) Active Problems Problem Noted Date Diagnosed Date [...] as of this encounter (statuses as of 09/19/2023) Resolved Problems Problem Noted Date Diagnosed Date [...] term ACTIVE CASE MANAGEMENT-Flaco valeryaga Roberts RN [phone]. 05/05/2008 12/12/2009 DIAB RENAL MANIF ADULT 09/17/200707/02 [...] as of this encounter (statuses as of 09/19/2023) Immunizations Name Administration Dates Next Due COVID-19 mRNA, LNP-s, No Pre serve, 2-Dose Series ([place]) 10/26/2020,10/05/2020 COVID-19, MRNA-LNP, 23-24, P F, 30 MCG/0.3 mL, 12 YRS AND ABOVE, IM ([facility]) 01/30/2023 Covid-19, Mrna, Lnp-s, Pf, B ivalent, [...] of this encounter Progress Notes * Carol Paez, [facility] - 09/19/2023 9:19 AM EDT Images from the original note were not included. After connecting to the patient via telephone, the patient was identified by name and date of . Patient was then informed that this was a telephone call only visit. The patient agreed to participate. Visit Disposition: Routine follow-up Total call duration was 15 minutes. Called and spoke with patient's daughter, Brenda ([phone]). Medication Therapy Disease Management Clinic - Diabetes Management Progress Note Nelson Arenas, identified by name and date of , is a 87 year old male being seen for diabetes management/education. Patient presents for return diabetic visit. DIABETES: Current diabetic medications: Lantus pen - 30 units daily in evening Humalog pen - 8 units before breakfast, 8 units before Lunch, 13 units before supper eGFR 48 01/30/23 Medication Injection Site: Abdomen Lifestyle: Diet: unchanged Glucose Review/SMBG: Readings obtained from patient device Hypoglycemia: Does your blood sugar go below 70 mg/dL? No Hyperglycemia symptoms present: none Recent Labs Units 06/14/23 1053 01/30/23 1103 07/31/22 0847 HEMOGLOBIN A1C - [facility] % 7.8* 8.4* 7.4* Recent Labs Units 06/14/23 1053 01/30/23 1103 07/31/22 0847 ESTIMATED GLOMERULAR FILTRATION RATE - [facility] mL/min 51* 48* 44* CREATININE - [facility] mg/dL 1.4* 1.4* 1.5* HYPERTENSION: Patient on ACEi/ARB: no, deferred to PCP BP Readings from Last 3 Encounters: 09/12/23 108/70 07/03/23 124/60 06/14/23 112/51 Blood pressure at goal: yes HYPERLIPIDEMIA: Patient is taking moderate or high intensity statin: yes HEALTH MAINTENANCE REVIEW: Health Maintenance Due Topic Date Due Hepatitis B (1 of 3 - Risk 3-dose series) Never done DTaP,Tdap,and Td Vaccines (1 - Tdap) 08/03/2008 Zoster Vaccines (3 of 3) 06/12/2019 Diabetic Eye Exam 04/05/2021 Albumin/Creatinine Ratio 09/18/2022 ASSESSMENT & PLAN: ICD-10-CM 1. Type 2 diabetes mellitus with hemoglobin A1c goal of less than 7.5% ([facility]) E11.9 Considerations: Legally blind Requires educational interpreter (daughter accompanies patient) 17/09 Caregivers; Daughter is POA Spoke with patient's daughter and reviewed Libr[employer] download. BG Readings - Blood sugars remaining stable. Acceptable control. No hypoglycemia noted. Still continuing to rise overnight. Medications - Reviewed current regimen, patient is adherent to regimen. Confirmed insulin doses. Diet, Exercise, Lifestyle - Daughter reports continuing to struggle with food choices that caregivers are making. Encouraged to continue working on limiting CHO/sugar, enjoying everything but in moderation. Updated A1c ordered to obtain at next PCP visit. If remaining stable at next visit will plan to discharge from [facility] at that time. Patient is agreeable to SMBG daily with CGM ([employer] Sheree) Patient aware to contact clinic if any hypoglycemia before next visit. MEDICATION CHANGES: no change Diabetic Medications: Lantus pen - 30 units daily in evening Humalog pen - 8 units before breakfast, 8 units before Lunch, 13 units before supper eGFR 48 01/30/23 HEALTH MAINTENANCE INTERVENTIONS: Deferred d/t telephonic visit FOLLOW UP: Return to clinic in 8 weeks 11/14/2023 Carol Paez RPh, PharmD Clinical Pharmacist - Sap Analyst Medication Therapy Disease Management Clinic 09/19/2023, 9:19 AM [phone] documented in this encounter Plan of Treatment Upcoming Encounters Date Type Department Care Team (Late st Contact Info) Description 10/07/2023 9:20 AM EDT Office Visit Family Practice [facility] [place] [address] [facility] [place] [address] Manjeet Mosley III, MD [address] [facility] [place] [address] 11/14/2023 11:00 AM EDT Telemedicine Pharmacy, [address] [place] [address] [place] [address] 07/06/2024 8:30 AM EDT Nurse Only Ancillary [address] [place] [address] [place], Nurse [address] [place] [address] Scheduled Orders Name Type Priority Associated Diagnoses Orde r Schedule HEMOGLOBIN A1C Lab Routine Type 2 diabetes mellitus with hemoglobin A1c goal of less than 7.5% ([facility]) Expected: 09/19/2023, Expires: 09/18/2024 Health Maintenance Due Date Last Done Comments [...] Additional history exists CKD PHOS USE SMARTSET 32013 01/31/2024 12/0 07/2022, 01/03/2022, 01/25/2021, Additional history exists Diabetic Foot Exam 06/03/2024 06/04/2023 (D one elsewhere), 06/28/2022, 02/06/2021, Additional history exists CKD HGB USE SMARTSET 77851 06/13/202406/13, 01/30/2023, 01/03/2022, Additional history exists Depression [...] Primary documented in this encounter Care Teams Area Attendant Relationship Specialty Start Date End Date Manjeet Mosley III, MD [address] [facility] [place] [address] PCP - General 11/18/06 documented as of this encounter
--- OUTSIDE RECORDS SUMMARY | 2024-01-26 10:42 | External Medical Summary | Summary of Care ---
Author Name Unknown Organization [facility] Address [address] [place] [address] Phone [phone] Care Team Providers Care Certified Master Safe Technician Name Role Phone Dimitri EMERY MD, Manjeet Adkins Primary Care Provider [phone] Reason for Visit * Reason Onset Date Comments Medical Records Request 08/02/2023 [facility] office of aging Encounter Details Date Type Department Care Team (Late st Contact Info) Description 08/02/2023 Telephone Family Practice [facility] [address] [place] [address] Manjeet Mosley III, MD [address] [place] [address] Medical Records Request ([facility] off... Allergies Active Allergy Reactions Criticality Noted Date Comments Metformin Hydrochloride 11/14/2004 GI SE Salicylates 03/10/2002 documented as of this encounter (statuses as of 08/02/2023) Medications Medication Sig Dispensed Refills Start Date [...] TABLET BY MOUTH EVERY DAY 30 Tablet 05/11/2022 Active Diclofenac Sodium 1 % External Gel (Voltaren) Apply topically to affected area 3 times a day. Apply to SHOULDER 100 g 8 04/05/2022 Active Omeprazole 20 MG Oral Capsule Delayed Release (PriLOSEC) TAKE ONE CAPSULE BY MOUTH EVERY DAY 90 Capsule 10/01/2022 Active Furosemide 40 MG Oral Tablet (Lasix)Indications:E pedro, unspecified type TAKE 1 TABLET BY MOUTH ON SATURDAY, SATURDAY AND SATURDAY (MAY TAKE 1 DAILY FOR 3 DAYS IF NEEDEED FOR SWELLING) 90 Tablet 3 10/01/2022 Active Donepezil HCl 10 MG Oral Tablet (Aricept) TAKE ONE TABLET BY MOUTH EVERY DAY 90 Tablet 10/01/2022 Active Gabapentin 300 MG Oral Capsule (Neurontin) TAKE TWO CAPSULES BY MOUTH TWICE DAILY 360 Capsule 10/01/2022 Active Rosuvastatin Calcium 20 MG Oral Tablet (Crestor)Indications :Dyslipidemia, goal LDL below 100 TAKE ONE TABLET BY MOUTH EVERY DAY 90 Tablet 3 10/01/2022 Active Brimonidine Tartrate-Timolol 0.2-0.5 % Ophthalmic Solution (Combigan)Indication s:Stable angina (HCC),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[facility] [...] before supper 45 mL 1 12/18/2022 Active guaiFENesin ER 600 MG Oral Tablet Extended Release 12 Hour (Mucinex)Indications :Chronic maxillary sinusitis Take 1 Tablet by mouth 2 times a day as needed for Congestion. Take with plenty of water. Do not cut, crush or chew 40 Tablet 2 01/30/2023 Active Cefuroxime Axetil 500 MG Oral Tablet (Ceftin) Take 1 Tablet by mouth 2 times a day. 20 Tablet 02/19/2023 Active Benzonatate 100 MG Oral Capsule (Tessalon [...] 18 Each 06/07/2023 Active FreeStyle Sheree 2 [place] Device Use as directed. 1 Each 2 06/07/2023 Active Terazosin HCl 2 MG Oral CapsuleIndications:E pedro, unspecified type TAKE ONE CAPSULE AT BEDTIME 90 Capsule 1 07/04/2023 Active documented as of this encounter (statuses as of 08/02/2023) Active Problems Problem Noted Date Diagnosed Date [...] as of this encounter (statuses as of 08/02/2023) Resolved Problems Problem Noted Date Diagnosed Date [...] inactive term ACTIVE CASE MANAGEMENT-Flaco Roberts RN [phone]. 05/05/2008 12/12/2009 DIAB RENAL MANIF ADULT 09/17/200707/02 [...] as of this encounter (statuses as of 08/02/2023) Immunizations Name Administration Dates Next Due COVID-19 mRNA, LNP-s, No Pre serve, 2-Dose Series (diaDexus) 10/26/2020,10/05/2020 COVID-19, MRNA-LNP, 23-24, P F, 30 MCG/0.3 mL, 12 YRS AND ABOVE, IM ([employer]) 01/30/2023 Covid-19, Mrna, Lnp-s, Pf, B [...] money to get more. Never true 09/2023 Sex and Gender Information Value Date Recorded Sex Assigned at Male 06/26/2021 2:21 PM EDT Gender Identity Male 06/26/2021 2:21 PM EDT Sexual Orientation Straight 06/26/2021 2: 21 PM EDT Job Start Date Occupation Industry Not on file Not on file Not on file documented as of this encounter Miscellaneous Notes * Telephone Encounter - Penny Leigh OSA - 08/02/2023 2:19 PM EDT Medical Record Request Med Recs from [facility] office of aging Med Recs forwarded to [facility] on 08/01 documented in this encounter Plan of Treatment Upcoming Encounters Date Type Department Care Team (Late st Contact Info) Description 09/17/2023 2:30 PM EDT Telemedicine Pharmacy, [address] [place] [address] [place] [address] 10/07/2023 9:20 AM EDT Office Visit Family Practice [facility] [place] [address] [facility] [address] Dimitri YULY, Manjeet Adkins MD [address] [facility] [address] 07/06/2024 8:30 AM EDT Nurse Only Ancillary [address] [place] [address] [place], Nurse [address] [place] [address] Health Maintenance Due Date Last Done Comments DTaP,Tdap,and Td Vaccines (1 - Tdap) 08/03/2008 08/02/2008 Zoster Vaccines (3 of 3) 06/12/2019 04/17/2019, 03/29 Diabetic Eye Exam 06/29/2022 06/29/2021, , 10/23/2019 (Done elsewhere), Additional history exists Albumin/Creatinine Ratio 09/18/2022 022, 08/23/2020, 01/26/2019, Additional history exists COVID-19 Vaccine (2022- season) 2023 01/30/2023, 03/01/2022, 10/26/2020, Additional history exists HbA1c 12/14/2023 06/14/2023, 1207/2022, 07/31/2022, Additional history exists CKD PHOS USE SMARTSET 34808 01/31/2024 120 07/2022, 01/03/2022, 01/25/2021, Additional history exists Diabetic Foot Exam 06/03/2024 06/04/2023 (D one elsewhere), 06/28/2022, 02/06/2021, Additional history exists CKD HGB USE SMARTSET 63304 06/13/202406/13, 01/30/2023, 01/03/2022, Additional history exists Depression Screening 07/02/2024 07/03/2023, 07/03/19 24 Pneumococcal Vaccine: 65+ Years Completed 05/06/2014, 12/28/2004 Influenza Vaccine (FLU shot) Completed 04/2022, 01/03/2022, 01/25/2021, Additional history exists GARDASIL-HPV IMMUNIZATION SERIES Aged Out No longer eligible based on patient's age to complete this topic Hepatitis B Aged Out No longer eligi ble based on patient's age to complete this topic MENINGOCOCCAL (MENACTRA/MENVEO) Aged Out No longer eligible based on patient's age to complete this topic documented as of this encounter Medical Devices Not on filedocumented as of this encounter Care Teams Certified Master Safe Technician Relationship Specialty Start Date End Date Manjeet Mosley III, MD [address] [place] [address] PCP - General 11/18/06 documented as of this encounter
--- OUTSIDE RECORDS SUMMARY | 2024-01-26 10:42 | External Medical Summary | Summary of Care ---
Author Name Unknown Organization [facility] Address [address] [place] [address] Phone [phone] Care Team Providers Care Accounts Clerk Name Role Phone Dimitri EMERY MD, Manjeet Adkins Primary Care Provider [phone] Reason for Visit * Reason Comments Acute Trouble coughing up thick mucous, possible infection under right great toe nail Encounter Details Date Type Department Care Team (Late st Contact Info) Description 09/12/2023 8:40 AM EDT Office Visit General Internal Medicine [facility] [address] [place] [address] Monserrat Jefferson MD [address] [place] [address] Bronchitis, complicated*; Type 2 diabetes mellitus with stage 3b chronic kidney disease, with long-term current use of insulin ([facility]); Hypertrophic toenail; Cellulitis of great toe of right foot Allergies Active Allergy Reactions Criticality Noted Date Comments Metformin Hydrochloride 11/14/2004 GI SE Salicylates 03/10/2002 documented as of this encounter (statuses as of 09/12/2023) Medications Medication Sig Dispensed Refills Start Date [...] 3 doses in 15 minutes 25 Tablet 2 Active Aspirin Low Dose 81 MG [...] 18 Each 4 Active FreeStyle Sheree 2 [place] Device Use as directed. 1 Each 2 [...] EVERY DAY 90 Capsule 3 4 Active Cefuroxime Axetil 500 MG Oral Tablet (Ceftin)Indicatio ns:Bronchitis, complicated,Hyper trophic toenail,Celluliti s of great toe of right foot Take 1 Tablet by mouth 2 times a day. 14 Tablet 4 Active guaiFENesin ER 600 MG Oral Tablet Extended Release 12 Hour (Mucinex)Indicati ons:Bronchitis, complicated Take 1 Tablet by mouth 2 times a day as needed for Congestion. Take with plenty of water. Do not cut, crush or chew 40 Tablet 4 Active guaiFENesin ER 600 MG Oral [...] as of this encounter (statuses as of 09/12/2023) Active Problems Problem Noted Date Diagnosed Date [...] as of this encounter (statuses as of 09/12/2023) Resolved Problems Problem Noted Date Diagnosed Date [...] ml/min 09/01/2018 10/09/2018 Parkinson's disease 07/02/2018 07/03/19 19 Decubitus ulcer of buttock, stage 2 10/24/2017 [...] inactive term ACTIVE CASE MANAGEMENT-Flaco Roberts RN [phone]. 05/05/2008 12/12/2009 DIAB RENAL MANIF ADULT 09/17/200707/02 [...] as of this encounter (statuses as of 09/12/2023) Immunizations Name Administration Dates Next Due COVID-19 mRNA, LNP-s, No Pre serve, 2-Dose Series ([employer]) 10/26/2020,10/05/2020 COVID-19, MRNA-LNP, 23-24, P F, 30 MCG/0.3 mL, 12 YRS AND ABOVE, IM ([facility]) 01/30/2023 Covid-19, Mrna, Lnp-s, Pf, [...] Sign Reading Time Taken Comments Blood Pressure 108/70 09/12/2023 8:26 AM EDT Pulse 88 09/12/2023 8:26 AM EDT Temperature 36 C (96.8 F) 09/12/2023 8:26 AM EDT Respiratory Rate 16 09/12/2023 8:26 AM EDT Oxygen Saturation - - Inhaled Oxygen Concentration - - Weight - - Height - - Body Mass Index - - documented in this encounter Progress Notes * Monserrat Jefferson MD - 09/12/2023 8:45 AM EDT SUBJECTIVE: Nelson Arenas is a 87 year old male. Chief Complaint Patient presents with Acute Trouble coughing up thick mucous, possible infection under right great toe nail HPI: Patient presents today accompanied by his daughter. She states he has had 4 weeks of cough seems to be productive, he is unable to expectorate, occasionally brings it up and green in color. No fever or chills. No shortness of breath. No nausea or vomiting. No history of choking episodes. He was on azithromycin and Mucinex in January and later given Ceftin. Also complains of a redness/thickening under the right great toenail. Unsure if he bumped it against anything. He sees a orthopedic nurse practitioner in [place] and has an appointment next . She has been applying a topical antibiotic ointment. Last labs reviewed. Patient Active Problem List Diagnosis Diabetic neuropathy ([facility]) ADVANCE DIRECTIVE INFORMATION Other specified glaucoma Urinary frequency DYSLIPIDEMIA, GOAL LDL BELOW 100 Stable angina ([facility]) Type 2 diabetes mellitus with hemoglobin A1c goal of less than 8.0% ([facility]) Essential hypertension with goal blood pressure less than 140/90 Essential tremor Diabetes mellitus with background retinopathy ([facility]) Macular degeneration, 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 disease, with long-term current use of insulin([facility]) Hypertensive kidney disease with CKD stage III ([facility]) Vascular dementia without behavioral disturbance ([facility]) Gastroesophageal reflux disease without esophagitis Primary open angle glaucoma (POAG) of both eyes, severe stage Diabetic polyneuropathy associated with diabetes mellitus due to underlying condition ([facility]) Food insecurity Inavailability of community resources Type 2 diabetes mellitus with stage 3b chronic kidney disease, with long-term current use of insulin ([facility]) Current Outpatient Medications Medication Sig Dispense Refill [...] up to two weeks. 30 g 1 Triamcinolone Acetonide 0.1 % External Cream (Aristocort) [...] 13 units before supper 45 mL 1 guaiFENesin ER 600 MG Oral Tablet Extended Release 12 Hour (Mucinex) Take 1 Tablet by mouth 2 timesa day as needed for Congestion. Take with plenty of water. Do not cut, crush or chew 40 Tablet 2 Insulin Glargine Solostar 100 UNIT/ML Subcutaneous Solution [...] directed 18 Each 11 FreeStyle Sheree 2 [place] Device Use as directed. 1 Each 2 [...] BY MOUTH EVERY DAY 90 Capsule 3 BD Pen Needle Short U/F 31G X 8 MM (Insulin Pen Needle) Use with insulins - 4 times a day. DX e11.9400 Each 3 Famotidine 20 MG Oral Tablet (Pepcid) TAKE ONE TABLET BY MOUTH TWICE DAILY 180 Tablet 3 Benzonatate 100 MG Oral Capsule (Tessalon Perles) Take 1 Capsule by mouth 3 times a day as needed for Cough. Do not cut, crush, or chew. 50 Capsule 1 No current facility-administered medications for this visit. Review of patient's allergies indicates: Allergen Reactions Metformin [Metformin Hydrochloride] GI SE Salicylates OBJECTIVE: BP 108/70 | Pulse 88 | Temp 36 C (96.8 F) | Resp 16 PHYSICAL EXAM: General: alert, healthy, no distress, well developed Neck: supple, no adenopathy, thyroid Not enlarged without nodularity Heart: regular rhythm and rate,No murmurs. Lungs: lungs clear to auscultation except few basilar rales, cleared with coughing Extremities: no edema Right foot-all nails with hypertrophic toenails. Right great toe-underneath the nail is a area of skin thickening with dry blood ASSESSMENT/PLAN: Bronchitis, complicated (Primary) - Cefuroxime Axetil 500 MG Oral Tablet (Ceftin); Take 1 Tablet by mouth 2 times a day. Recommend to do deep breathing exercises 2-3 times a day x 1-2 weeks. Mucinex DM 1 or 2 pills by mouth twice a day for cough with plenty of water as needed Type 2 diabetes mellitus with stage 3b chronic kidney disease, with long-term current use of insulin (HCC) Hypertrophic toenail - Cefuroxime Axetil 500 MG Oral Tablet (Ceftin); Take 1 Tablet by mouth 2 times a day. Cellulitis of great toe of right foot - Cefuroxime Axetil 500 MG Oral Tablet (Ceftin); Take 1 Tablet by mouth 2 times a day. Advised to apply warm saline compress to the affected areas for 5-10 minutes 2 times daily. Continue application of topical antibiotic ointment to the affected area 2 to 3 times a day Keep appointment with orthopedic nurse practitioner next week Follow-up: Return if symptoms worsen or fail to improve. | Check-out note: Call for copy eye exam (This note was completed using the dictation program Fluency Direct. As such, there may be misspellings, word substitutions, or other variations that should not change the essence of the clinical content of this encounter note. If there is need for further clarification, please direct questions to the provider listed above.) Patient and / caregiver verbalize understanding of above instructions and agrees with plan of care. Monserrat Jefferson MD 09/12/2023 documented in this encounter Nursing Notes * Jeanne Do LPN - 09/12/2023 8:26 AM EDT The patient has been properly identified by confirmation of name and date of . Chief Complaint Patient presents with Acute Trouble coughing up thick mucous, possible infection under right great toe nail documented in this encounter Plan of Treatment Upcoming Encounters Date Type Department Care Team (Late st Contact Info) Description 09/17/2023 2:30 PM EDT Telemedicine Pharmacy, [address] [place] [address] [place] [address] 10/07/2023 9:20 AM EDT Office Visit Family Practice [address] [place] [address] Manjeet Mosley III, MD 200 [facility] [place] [address] 07/06/2024 8:30 AM EDT Nurse Only Ancillary [address] [place] [address] [place], Nurse Annual [address] [place] [address] Health Maintenance Due Date Last Done Comments [...] Additional history exists CKD PHOS USE SMARTSET 46671 01/31/2024 1207/2022, 01/03/2022, 01/25/2021, Additional history exists Diabetic Foot Exam 06/03/2024 06/04/2023 (D one elsewhere), 06/28/2022, 02/06/2021, Additional history exists CKD HGB USE SMARTSET 62631 06/13/202406/13, 01/30/2023, 01/03/2022, Additional history exists Depression [...] as of this encounter Visit Diagnoses Diagnosis Bronchitis, complicated- Primary Bronchitis, not specified as acute or chronic Type 2 diabetes mellitus with stage 3b chronic kidney disease, with long-term current use of insulin (HCC) Hypertrophic toenail Other specified disease of nail Cellulitis of great toe of right foot Cellulitis and abscess of toe, unspecified documented in this encounter Care Teams Accounts Clerk Relationship Specialty Start Date End Date Manjeet Mosley III, MD [address] [facility] [place] [address] PCP - General 11/18/06 documented as of this encounter"
--- OUTSIDE RECORDS SUMMARY | 2024-01-26 10:42 | External Medical Summary | Summary of Care ---
Author Name Unknown Organization [facility] Address [address] [place] [address] Phone [phone] Care Team Providers Care Boiler/Chiller Operator Name Role Phone Dimitri EEMRY MD, Manjeet Adkins Primary Care Provider [phone] Reason for Visit * Reason Onset Date Comments Forms Request 09/09/2023 Encounter Details Date Type Department Care Team (Late st Contact Info) Description 09/09/2023 Telephone Family Practice [facility] [address] [place] [address] Manjeet Mosley III, MD [address] [place] [address] Forms Request Allergies Active Allergy Reactions Criticality Noted Date Comments Metformin Hydrochloride 11/14/2004 GI SE Salicylates 03/10/2002 documented as of this encounter (statuses as of 09/11/2023) Medications Medication Sig Dispensed Refills Start Date [...] BLUE STRPIndications:Diab etes mellitus, type II ([facility]) Use up to four times a [...] A1c goal of less than 8.0% ([facility]) Use with insulins - 4 times [...] % Ophthalmic Solution (Combigan)Indication s:Stable angina ([facility]),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[facility]),Other specified glaucoma one drop to both eyes twice daily 10 mL 3 2022 Active Famotidine 20 MG Oral Tablet (Pepcid) TAKE ONE TABLET BY MOUTH TWICE DAILY 180 Tablet 3 10/25/2022 Active Insulin Lispro (1 Unit Dial) 100 UNIT/ML Subcutaneous Solution Pen-injector ([employer] KwikPen)Indications: Type 2 diabetes mellitus with hemoglobin A1c goal of less than 8.0% ([facility]) inject 12 units under the skin [...] 18 Each 06/07/2023 Active FreeStyle Sheree 2 [place] Device Use as directed. 1 Each 2 [...] EVERY DAY 90 Capsule 3 08/27/2023 Active documented as of this encounter (statuses as of 09/11/2023) Active Problems Problem Noted Date Diagnosed Date [...] as of this encounter (statuses as of 09/11/2023) Resolved Problems Problem Noted Date Diagnosed Date [...] inactive term ACTIVE CASE MANAGEMENT-Flaco Roberts RN [phone]. 05/05/2008 12/12/2009 DIAB RENAL MANIF ADULT 09/17/200707/02 [...] as of this encounter (statuses as of 09/11/2023) Immunizations Name Administration Dates Next Due COVID-19 mRNA, LNP-s, No Pre serve, 2-Dose Series ([employer]) 10/26/2020,10/05/2020 COVID-19, MRNA-LNP, 23-24, P F, 30 MCG/0.3 mL, 12 YRS AND ABOVE, IM ([employer]) 01/30/2023 Covid-19, Mrna, Lnp-s, Pf, B ivalent, [...] - 09/09/2023 10:54 AM EDT Viv [facility] [employer] is calling to verify status of forms for diabetic supplies for patient that was sent on 09/06/23. Viv states that patient will need Freestyle sheree supply and will forms signed by doctor. Please advise. documented in this encounter Plan of Treatment Upcoming Encounters Date Type Department Care Team (Late st Contact Info) Description 09/12/2023 8:40 AM EDT Office Visit General Internal Medicine [facility] [address] [facility] [place] [address] Monserrat Jefferson MD 200 [facility] [place] [address] 09/17/2023 2:30 PM EDT Telemedicine Pharmacy, [address] [place] [address] [place] [address] 10/07/2023 9:20 AM EDT Office Visit Family Practice [facility] 200 [facility] [place] [address] [place], MD 200 [facility] [place] [address] 07/06/2024 8:30 AM EDT Nurse Only Ancillary [address] [place] [address] [place], Nurse [address] [place] [address] Health Maintenance Due Date Last Done Comments [...] Additional history exists CKD PHOS USE SMARTSET 86092 01/31/202407/2022, 01/03/2022, 01/25/2021, Additional history exists Diabetic Foot Exam 06/03/2024 06/04/2023 (D one elsewhere), 06/28/2022, 02/06/2021, Additional history exists CKD HGB USE SMARTSET 94727 06/13/202406/13, 01/30/2023, 01/03/2022, Additional history exists Depression [...] filedocumented as of this encounter Care Teams Boiler/Chiller Operator Relationship Specialty Start Date End Date Manjeet Mosley III, MD [address] [place] [address] PCP - General 11/18/06 documented as of this encounter
--- OUTSIDE RECORDS SUMMARY | 2024-01-26 10:42 | External Medical Summary | Summary of Care ---
Author Name Unknown Organization [facility] Address [address] [place] [address] Phone [phone] Care Team Providers Care Photostat Operator Helper Name Role Phone Dimitri EMERY MD, Manjeet Adkins Primary Care Provider [phone] Reason for Visit * Reason Onset Date Comments Forms Request 09/09/2023 Encounter Details Date Type Department Care Team (Late st Contact Info) Description 09/09/2023 Telephone Family Practice [facility] [address] [place] [address] Manjeet Mosley III, MD [address] [place] [address] Forms Request Allergies Active Allergy Reactions Criticality [...] ULTRA BLUE STRPIndications:Diab etes mellitus, type II ([facility]) Use up to four times [...] hemoglobin A1c goal of less than 8.0% ([facility]) Use with insulins - 4 [...] 0.2-0.5 % Ophthalmic Solution (Combigan)Indication s:Stable angina ([facility]),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[facility]),Other specified glaucoma one drop to both eyes twice daily 10 mL 3 2022 Active Famotidine 20 MG Oral Tablet (Pepcid) TAKE ONE TABLET BY MOUTH TWICE DAILY 180 Tablet 3 10/25/2022 Active Insulin Lispro (1 Unit Dial) 100 UNIT/ML Subcutaneous Solution Pen-injector (HumaLOG KwikPen)Indications: Type 2 diabetes mellitus with hemoglobin A1c goal of less than 8.0% ([facility]) inject 12 units under the [...] 18 Each 06/07/2023 Active FreeStyle Sheree 2 [place] Device Use as directed. 1 Each 2 [...] inactive term ACTIVE CASE MANAGEMENT-Flaco Roberts RN [phone]. 05/05/2008 12/12/2009 DIAB RENAL MANIF ADULT 09/17/200707/02 [...] mRNA, LNP-s, No Pre serve, 2-Dose Series ([employer]) 10/26/2020,10/05/2020 COVID-19, MRNA-LNP, 23-24, P F, 30 MCG/0.3 mL, 12 YRS AND ABOVE, IM ([employer]) 01/30/2023 Covid-19, Mrna, Lnp-s, Pf, B ivalent, [...] encounter Miscellaneous Notes * Telephone Encounter - Andrea Garcia OSA [...] - 09/09/2023 10:54 AM EDT Viv from [facility] is calling to verify status of forms for diabetic supplies for patient that was sent on 09/06/23. Viv states that patient will need Freestyle sheree supply and will forms signed by doctor. Please advise. documented in this encounter Plan of Treatment Upcoming Encounters Date Type Department Care Team (Late st Contact Info) Description 09/12/2023 8:40 AM EDT Office Visit General Internal [facility] [place] [address] [place], [place] [address] Monserrat Jefferson MD [address] [place] [address] 09/17/2023 2:30 PM EDT Telemedicine Pharmacy, [address] [place] [address] [place] [address] 10/07/2023 9:20 AM EDT Office Visit Family Practice [facility] 200 [facility] [place] [address] Manjeet Mosley III, MD [address] [place] [address] 07/06/2024 8:30 AM EDT Nurse Only Ancillary [address] [place] [address] [place], Nurse [address] [place] [address] Health Maintenance Due Date Last Done Comments [...] Additional history exists CKD PHOS USE SMARTSET 51400 01/31/2024 1207/2022, 01/03/2022, 01/25/2021, Additional history exists Diabetic Foot Exam 06/03/2024 06/04/2023 (D one elsewhere), 06/28/2022, 02/06/2021, Additional history exists CKD HGB USE SMARTSET 85410 06/13/202406/13, 01/30/2023, 01/03/2022, Additional history exists Depression [...] filedocumented as of this encounter Care Teams Photostat Operator Helper Relationship Specialty Start Date End Date Manjeet Mosley III, MD 200 [facility] [place] [address] PCP - General 11/18/06 documented as of this encounter
--- OUTSIDE RECORDS SUMMARY | 2024-01-26 10:42 | External Medical Summary | Summary of Care ---
Author Name Unknown Organization [facility] Address [address] [place] [address] Phone [phone] Care Team Providers Care Director Industrial Relations Name Role Phone Dimitri EMERY MD, Manjeet Adkins Primary Care Provider [phone] Reason for Visit * Reason Comments eRx-Medication Refill Encounter Details Date Type Department Care Team (Late st Contact Info) Description 08/27/2023 Refill Care Coordination [address], [place] [id number] Drea Coronel PA-C [address] [place], [place] [id number] Dyslipidemia, goal LDL below 100 Allergies Active Allergy Reactions Criticality Noted Date Comments Metformin Hydrochloride 11/14/2004 GI SE Salicylates 03/10/2002 documented as of this encounter (statuses as of 08/27/2023) Medications Medication Sig Dispensed Refills Start Date [...] ULTRA BLUE STRPIndications:D iabetes mellitus, type II ([facility]) [...] Ophthalmic Solution (Combigan)Indicat ions:Stable angina ([facility]),DM type 1 [...] 18 Each 06/07/2023 Active FreeStyle Sheree 2 [place] Device Use as directed. 1 Each 2 [...] EVERY DAY 90 Capsule 3 08/27/2023 Active Omeprazole 20 MG Oral Capsule Delayed Release (PriLOSEC) TAKE ONE CAPSULE BY MOUTH EVERY DAY 90 Capsule 3 10/01/2022 4 Discontinued Donepezil HCl 10 MG Oral Tablet (Aricept) TAKE ONE TABLET BY MOUTH EVERY DAY 90 Tablet 3 10/01/2022 4 Discontinued Gabapentin 300 MG Oral Capsule (Neurontin) TAKE TWO CAPSULES BY MOUTH TWICE DAILY 360 Capsule 3 10/01/2022 4 Discontinued Rosuvastatin Calcium 20 MG Oral Tablet (Crestor)Indicati ons:Dyslipidemia, goal LDL below 100 TAKE ONE TABLET BY MOUTH EVERY DAY 90 Tablet 3 10/01/2022 4 Discontinued documented as of this encounter (statuses as of 08/27/2023) Active Problems Problem Noted Date Diagnosed Date [...] as of this encounter (statuses as of 08/27/2023) Resolved Problems Problem Noted Date Diagnosed Date [...] inactive term ACTIVE CASE MANAGEMENT-Flaco Roberts RN [phone]. 05/05/2008 12/12/2009 DIAB RENAL MANIF ADULT 09/17/200707/02 [...] as of this encounter (statuses as of 08/27/2023) Immunizations Name Administration Dates Next Due COVID-19 [...] Telephone Encounter - Drea Coronel PA-C - 08/27/2023 7:19 PM EDTSigned Prescriptions: Disp Refills Gabapentin 300 MG Oral Capsule (Neurontin) 360 Ca*3 Sig: TAKE TWO CAPSULES BY MOUTH TWICE DAILY Authorizing Provider: DREA CORONEL Donepezil HCl 10 MG Oral Tablet (Aricept) 90 Tab*3 Sig: TAKE ONE TABLET BY MOUTH EVERY DAY Authorizing Provider: DREA CORONEL Rosuvastatin Calcium 20 MG Oral Tablet (Cr*90 Tab*3 Sig: TAKE ONE TABLET BY MOUTH EVERY DAY Authorizing Provider: DREA CORONEL Omeprazole 20 MG Oral Capsule Delayed Rele*90 Cap*3 Sig: TAKE ONE CAPSULE BY MOUTH EVERY DAY Authorizing Provider: DREA CORONEL * Telephone Encounter - Monique Yun LPN - 08/27/2023 4:55 PM EDT Pending Prescriptions: Disp Refills Gabapentin 300 MG Oral Capsule [Pharmacy M*360 Ca*3 Sig: TAKE TWO CAPSULES BY MOUTH TWICE DAILY Donepezil HCl 10 MG Oral Tablet [Pharmacy *90 Tab*3 Sig: TAKE ONE TABLET BY MOUTH EVERY DAY Rosuvastatin Calcium 20 MG Oral Tablet [Ph*90 Tab*3 Sig: TAKE ONE TABLET BY MOUTH EVERY DAY Omeprazole 20 MG Oral Capsule Delayed Rele*90 Cap*3 Sig: TAKE ONE CAPSULE BY MOUTH EVERY DAY * Telephone Encounter - Monique Yun LPN - 08/27/2023 4:55 PM EDT Pending Prescriptions: Disp Refills Gabapentin 300 MG Oral Capsule (Neurontin*360 Ca*3 Sig: TAKE TWO CAPSULES BY MOUTH TWICE DAILY Donepezil HCl 10 MG Oral Tablet (Aricept)*90 Tab*3 Sig: TAKE ONE TABLET BY MOUTH EVERY DAY Rosuvastatin Calcium 20 MG Oral Tablet (C*90 Tab*3 Sig: TAKE ONE TABLET BY MOUTH EVERY DAY Omeprazole 20 MG Oral Capsule Delayed Rel*90 Cap*3 Sig: TAKE ONE CAPSULE BY MOUTH EVERY DAY Last Visit: Visit date not found (in office), Visit date not found (telemedicine) Next Visit: Visit date not found Last date the medication was ordered: 10/01/2022 Patient Active Problem List Diagnosis Diabetic neuropathy (HCC) ADVANCE DIRECTIVE INFORMATION Other specified glaucoma Urinary frequency DYSLIPIDEMIA, GOAL LDL BELOW 100 Stable angina (HCC) Type 2 diabetes mellitus with hemoglobin A1c goal of less than 8.0% (HCC) Essential hypertension with goal blood pressure less than 140/90 Essential tremor Diabetes mellitus with background retinopathy ([facility]) Macular degeneration, 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 disease, with long-term current use of insulin([facility]) Hypertensive kidney disease with CKD stage III ([facility]) Vascular dementia without behavioral disturbance ([facility]) Gastroesophageal reflux disease without esophagitis Primary open angle glaucoma (POAG) of both eyes, severe stage Diabetic polyneuropathy associated with diabetes mellitus due to underlying condition ([facility]) Food insecurity Inavailability of community resources Type 2 diabetes mellitus with stage 3b chronic kidney disease, with long-term current use of insulin ([facility]) Labs: Lab Results Component Value Date/Time CREATININE - [facility] 1.4 (H) 06/14/2023 10:53 AM CREATININE - [facility] 1.6 (H) 11/16/2019 09:46 AM CREATININE, RANDOM URINE - [facility] 91 09/18/2021 08:25 AM CREATININE, RANDOM URINE - [facility] 133 01/26/2019 12:42 PM CREATININE-OUTSIDE LAB 1.39 03/07/2018 12:00 AM Lab Results Component Value Date/Time POTASSIUM - [facility] 4.7 06/14/2023 10:53 AM POTASSIUM - [facility] 4.7 11/16/2019 09:46 AM POTASSIUM-OUTSIDE LAB 4.3 03/07/2018 12:00 AM Lab Results Component Value Date/Time TSH - [facility] 0.87 07/09/2017 10:43 AM Lab Results Component Value Date/Time LDL CHOLESTEROL (CALCULATED) - [facility] 28 07/31/2022 08:47 AM LDL CHOLESTEROL (CALCULATED) - [facility] 45 01/25/2021 11:49 AM LDL CHOLESTEROL (CALCULATED) - [facility] 46 01/26/2019 12:31 PM LDL CHOLESTEROL (CALCULATED) - [facility] 41 02/06/2013 09:20 AM LDL CHOLESTEROL (DIRECT MEASURE) - [facility] NOT APPLICABLE 01/26/2019 12:31 PM LDL CHOLESTEROL (DIRECT MEASURE) - [facility] 30 07/09/2017 10:43 AM LDL CHOLESTEROL (DIRECT MEASURE) - [facility] 41 06/05/2016 10:18 AM Lab Results Component Value Date/Time ALT - [facility] 21 06/05/2021 11:25 AM ALT - [facility] 28 04/29/2018 09:59 AM Hemoglobin AIC Results: Lab Results Component Value Date/Time HEMOGLOBIN A1C - [facility] 7.8 (H) 06/14/2023 10:53 AM HEMOGLOBIN A1C - [facility] 8.4 (H) 01/30/2023 11:03 AM HEMOGLOBIN A1C - [facility] 7.4 (H) 07/31/2022 08:47 AM HEMOGLOBIN A1C - [facility] 8.8 (H) 11/05/2019 12:15 PM HEMOGLOBIN A1C - [facility] 9.1 (H) 01/26/2019 12:31 PM HEMOGLOBIN A1C - [facility] 9.3 (H) 10/24/2017 09:05 AM documented in this encounter Plan of Treatment Upcoming Encounters Date Type Department Care Team (Late st Contact Info) Description 09/17/2023 2:30 PM EDT Telemedicine Pharmacy, [address] [place] [address] [place] [address] 10/07/2023 9:20 AM EDT Office Visit [facility] 200 [facility] [place] [address] Manjeet Mosley III, MD 200 [facility] [place] [address] 07/06/2024 8:30 AM EDT Nurse Only Ancillary [address] [place] [address] [place], Nurse Annual [address] [place] [address] Health Maintenance Due Date Last Done Comments [...] Additional history exists CKD PHOS USE SMARTSET 44379 01/31/202407/2022, 01/03/2022, 01/25/2021, Additional history exists Diabetic Foot Exam 06/03/2024 06/04/2023 (D one elsewhere), 06/28/2022, 02/06/2021, Additional history exists CKD HGB USE SMARTSET 71061 06/13/202406/13, 01/30/2023, 01/03/2022, Additional history exists Depression [...] as of this encounter Visit Diagnoses Diagnosis Dyslipidemia, goal LDL below 100 Other and unspecified hyperlipidemia documented in this encounter Care Teams Director Industrial Relations Relationship Specialty Start Date End Date Manjeet Mosley III, MD [address] [place] [address] PCP - General 11/18/06 documented as of this encounter
--- OUTSIDE RECORDS SUMMARY | 2024-01-26 10:42 | External Medical Summary | Summary of Care ---
Author Name Unknown Organization [facility] Address [address] [place] [address] Phone [phone] Care Team Providers Care Director Of Recruiting Name Role Phone Dimitri EMERY MD, Manjeet Adkins Primary Care Provider [phone] Reason for Visit * Reason Onset Date Comments Forms Request 09/09/2023 Encounter Details Date Type Department Care Team (Late st Contact Info) Description 09/09/2023 Telephone Family Practice [facility] 200 [facility] [place] [address] Manjeet Mosley III, MD [address] [place] [address] Forms Request Allergies Active Allergy Reactions Criticality [...] BLUE STRPIndications:D luz marina mellitus, type II ([facility]) Use up to four times [...] hemoglobin A1c goal of less than 8.0% ([facility]) Use with insulins - 4 [...] 0.2-0.5 % Ophthalmic Solution (Combigan)Indicat ions:Stable angina ([facility]),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[facility]),Other specified glaucoma one drop to [...] DAY 90 Tablet 1 4 Active FreeStyle Jerald 2 SensorIndications :Type 2 diabetes mellitus with hemoglobin A1c goal of less than 7.5% (HCC) Use as directed. Change every 14 days. 3 Each 4 Active Incontinence Brief Large As directed 18 Each 4 Active FreeStyle Jerald 2 [place] Device Use as directed. 1 Each 2 [...] inactive term ACTIVE CASE MANAGEMENT-Flaco Roberts RN [phone]. 05/05/2008 12/12/2009 DIAB RENAL MANIF ADULT 09/17/200707/02 [...] MCG/0.3 mL, 12 YRS AND ABOVE, IM ([employer]Comirnat) 01/30/2023 Covid-19, Mrna, Lnp-s, Pf, B ivalent, [...] encounter Miscellaneous Notes * Telephone Encounter - Jody Crain MED [...] - 09/09/2023 10:54 AM EDT Viv from [facility] is calling to verify status of forms for diabetic supplies for patient that was sent on 09/06/23. Viv states that patient will need Freestyle jerald supply and will forms signed by doctor. Please advise. documented in this encounter Plan of Treatment Upcoming Encounters Date Type Department Care Team (Late st Contact Info) Description 09/17/2023 2:30 PM EDT Telemedicine Pharmacy, [address] [place] [address] [place] [address] 10/07/2023 9:20 AM EDT Office Visit Family Practice [facility] 200 [facility] [address] [place] [address] Dimitri Manjeet EMERY MD 200 [facility] [place] [address] 07/06/2024 8:30 AM EDT Nurse Only Ancillary [address] [place] [address] [place], Nurse [address] [place] [address] Health Maintenance Due Date Last Done Comments DTaP,Tdap,and Td Vaccines (1 - Tdap) 08/03/2008 08/02/2008 Zoster Vaccines (3 of 3) 06/12/2019 04/17/2019, 03/29 Diabetic Eye Exam 06/29/2022 06/29/2021, , 10/23/2019 (Done elsewhere), Additional history exists Albumin/Creatinine Ratio 09/18/2022 022, 08/23/2020, 01/26/2019, Additional history exists COVID-19 Vaccine (5 - 2023-24 season) 2023 01/30/2023, 03/01/2022, 10/26/2020, Additional history exists Influenza Vaccine (FLU shot) (#1) 2023 11/27/2022, 01/03/2022, 01/25/2021, Additional history exists HbA1c 12/14/2023 06/14/2023, 07/2022, 07/31/2022, Additional history exists CKD PHOS USE SMARTSET 07272 01/31/202407/2022, 01/03/2022, 01/25/2021, Additional history exists Diabetic Foot Exam 06/03/2024 06/04/2023 (D one elsewhere), 06/28/2022, 02/06/2021, Additional history exists CKD HGB USE SMARTSET 26269 06/13/202406/13, 01/30/2023, 01/03/2022, Additional history exists Depression [...] filedocumented as of this encounter Care Teams Director Of Recruiting Relationship Specialty Start Date End Date Manjeet Mosley III, MD 200 [place] [address] PCP - General 11/18/06 documented as of this encounter
--- OUTSIDE RECORDS SUMMARY | 2024-01-26 10:42 | External Medical Summary | Summary of Care ---
Author Name Unknown Organization [facility] Address [address] [place] [address] Phone [phone] Care Team Providers Care Lithopone Mill Worker Name Role Phone Dimitri EMERY MD, Manjeet Adkins Primary Care Provider [phone] Reason for Visit * Reason Onset Date Comments Forms Request 09/09/2023 Encounter Details Date Type Department Care Team (Late st Contact Info) Description 09/09/2023 Telephone Family Practice [facility] 200 [facility] [place] [address] Manjeet Mosley III, MD 200 [place] [address] Forms Request Allergies Active Allergy Reactions Criticality [...] BLUE STRPIndications:D luz marina mellitus, type II ([facility]) Use up to four times [...] goal of less than 8.0% ([facility]) Use with insulins - 4 [...] Ophthalmic Solution (Combigan)Indicat ions:Stable angina ([facility]),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[facility]),Other specified glaucoma one drop to [...] 18 Each 4 Active FreeStyle Jerald 2 [place] Device Use as directed. 1 Each 2 [...] inactive term ACTIVE CASE MANAGEMENT-Flaco Roberts RN [phone]. 05/05/2008 12/12/2009 DIAB RENAL MANIF ADULT 09/17/200707/02 [...] MCG/0.3 mL, 12 YRS AND ABOVE, IM ([employer]) 01/30/2023 Covid-19, Mrna, Lnp-s, Pf, B ivalent, [...] - 09/09/2023 10:54 AM EDT Viv from [facility] is calling to verify status of forms for diabetic supplies for patient that was sent on 09/06/23. Viv states that patient will need Freestyle jerald supply and will forms signed by doctor. Please advise. documented in this encounter Plan of Treatment Upcoming Encounters Date Type Department Care Team (Late st Contact Info) Description 09/17/2023 2:30 PM EDT Telemedicine Pharmacy, [address] [place] [address] [place] [address] 10/07/2023 9:20 AM EDT Office Visit Family Practice [facility] 200 [facility] [address] [place] [address] Dimitri Manjeet EMERY MD 200 [facility] [place] [address] 07/06/2024 8:30 AM EDT Nurse Only Ancillary [address] [place] [address] [place], Nurse [address] [place] [address] Health Maintenance Due Date Last Done Comments [...] Additional history exists CKD PHOS USE SMARTSET 86392 01/31/202407/2022, 01/03/2022, 01/25/2021, Additional history exists Diabetic Foot Exam 06/03/2024 06/04/2023 (D one elsewhere), 06/28/2022, 02/06/2021, Additional history exists CKD HGB USE SMARTSET 44364 06/13/202406/13, 01/30/2023, 01/03/2022, Additional history exists Depression [...] filedocumented as of this encounter Care Teams Lithopone Mill Worker Relationship Specialty Start Date End Date Manjeet Mosley III, MD 200 [place] [address] PCP - General 11/18/06 documented as of this encounter
--- OUTSIDE RECORDS SUMMARY | 2024-01-26 10:42 | External Medical Summary | Summary of Care ---
Author Name Unknown Organization [facility] Address [address] [place] [address] Phone [phone] Care Team Providers Care Admin Secretary Name Role Phone Dimitri EMERY MD, Manjeet Adkins Primary Care Provider [phone] Reason for Visit * Reason Onset Date Comments Medical Records Request 08/02/2023 Homecare delivered Encounter Details Date Type Department Care Team (Late st Contact Info) Description 08/02/2023 Telephone Family Practice [facility] 200 [facility] [place] [address] Manjeet Mosley III, MD 200 [place] [address] Medical Records Request (Homecare delivere... Allergies Active Allergy Reactions Criticality Noted Date [...] MOUTH EVERY DAY 90 Capsule 3 10/01/2022 Active Furosemide 40 MG Oral Tablet [...] angina (HCC),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HCC),Other specified glaucoma one drop to both eyes [...] less than 8.0% ([facility]) Inject 30 Units under the skin [...] A1c goal of less than 7.5% ([facility]) Use as directed. Change every 14 days. 3 Each 11 06/06/2023 Active Incontinence Brief Large As directed 18 Each 06/07/2023 Active FreeStyle Sheree 2 [place] Device Use as directed. 1 Each 2 [...] inactive term ACTIVE CASE MANAGEMENT-Flaco Roberts RN [phone]. 05/05/2008 12/12/2009 DIAB RENAL MANIF ADULT 09/17/200707/02 [...] mRNA, LNP-s, No Pre serve, 2-Dose Series ([employer]) 10/26/2020,10/05/2020 COVID-19, MRNA-LNP, 23-24, P F, 30 MCG/0.3 mL, 12 YRS AND ABOVE, IM ([employer]-Comirnat) 01/30/2023 Covid-19, Mrna, Lnp-s, Pf, B ivalent, [...] Encounter - Penny Leigh OSA - 08/02/2023 2:21 PM EDT Medical Record Request Med Recs from home care delivered Med Recs forwarded to [facility] on 08/01 documented in this encounter Plan of Treatment Upcoming Encounters Date Type Department Care Team (Late st Contact Info) Description 09/17/2023 2:30 PM EDT Telemedicine Pharmacy, [address] [place] [address] [place] [address] 10/07/2023 9:20 AM EDT Office Visit Family Practice [facility] 200 [facility] [place] [address] IdaManjeet fountain III, MD 200 [facility] [place] [address] 07/06/2024 8:30 AM EDT Nurse Only Ancillary [address] [place] [address] [place], Nurse [address] [place] [address] Health Maintenance Due Date Last Done Comments DTaP,Tdap,and Td Vaccines (1 - Tdap) 08/03/2008 08/02/2008 Zoster Vaccines (3 of 3) 06/12/2019 04/17/2019, 03/29 Diabetic Eye Exam 06/29/2022 06/29/2021, , 10/23/2019 (Done elsewhere), Additional history exists Albumin/Creatinine Ratio 09/18/2022 022, 08/23/2020, 01/26/2019, Additional history exists COVID-19 Vaccine ( season) 2023 01/30/2023, 03/01/2022, 10/26/2020, Additional history exists HbA1c 12/14/2023 06/14/2023, 07/2022, 07/31/2022, Additional history exists CKD PHOS USE SMARTSET 58342 01/31/202407/2022, 01/03/2022, 01/25/2021, Additional history exists Diabetic Foot Exam 06/03/2024 06/04/2023 (D one elsewhere), 06/28/2022, 02/06/2021, Additional history exists CKD HGB USE SMARTSET 69581 06/13/202406/13, 01/30/2023, 01/03/2022, Additional history exists Depression [...] filedocumented as of this encounter Care Teams Admin Secretary Relationship Specialty Start Date End Date Manjeet Mosley III, MD [address] [place] [address] PCP - General 11/18/06 documented as of this encounter
--- NOTE | 2024-01-26 11:37 | Emergency Department Note ---
Impression & Plan Choledocholithiasis, Transaminitis ED Provider Note CHIEF COMPLAINT: Chest pain/abdominal pain HISTORY OF PRESENT ILLNESS: This 88-year-old male patient with past medical history of type 2 diabetes, chronic kidney disease, hypertension, Parkinson's disease and dementia presents to the emergency department with complaints of chest pain radiating into his abdomen per his family. patient's family is at the bedside and states that he began to complain of symptoms this morning and just moans. They believe he still has his gallbladder in place, they deny any history of coronary artery disease or stents in place. There has been no fever, cough, cold, vomiting or diarrhea. No urinary symptoms. REVIEW OF SYSTEMS: Unable to obtain a full review of systems secondary to the patient's mental status, history obtained per family at the bedside. ALLERGIES: see below MEDICATIONS: see below PMH: see below SOCIAL HISTORY: see below DDx: Coronary artery disease, pancreatitis, peptic ulcer disease, bowel obstruction, constipation, diverticulitis among others. PHYSICAL EXAM: Vital signs reviewed. General: chronically ill-appearing 88-year-old male, in no significant distress. HEENT: No scleral icterus, PERRLA, neck supple. moist mucous membranes Cardiovascular: Regular rate and rhythm, no extra sounds. Pulmonary: Clear to auscultation bilaterally, normal work of breathing. Abdomen: Soft, discomfort to palpation of the epigastric region, no rebound, nondistended, positive bowel sounds. Musculoskeletal: Atraumatic, no peripheral edema. Neurologic: Patient awake alert and oriented x 3, speech is clear Skin: Warm, dry, no rash EMERGENCY DEPARTMENT COURSE/MDM: This patient was evaluated and appeared to be in no significant distress. Physical examination reveals some tenderness to palpation of the epigastric region. Laboratory work reveals elevated AST and ALT. CT imaging of the abdomen pelvis was performed and reveals evidence of cholelithiasis and choledocholithiasis. Patient's case was discussed with Dr. Parsons of gastroenterology who confirmed no ERCP services are available at our facility. Case was discussed with GI at [facility] as well as the hospitalist who accepted the patient in transfer to their facility for definitive management. No antibiotics are recommended at this time as the patient does not appear to have cholangitis or acute cholecystitis on imaging. Transfer consent signed with patient's at the bedside. Case was signed out to Dr. Story at the change of shift pending bed assignment at [facility]. MONITORING: An order for cardiac monitoring was placed and the patient is noted to be in a normal sinus rhythm at 77 beats per minute. RADIOLOGY: Chest x-ray to my interpretation reveals no evidence of focal lung consolidation or failure. CT abdomen and pelvis: IMPRESSION: 1. Cholelithiasis and choledocholithiasis without ductal dilatation. 2. Cystitis. Correlate with urinalysis. 3. Moderate to large amounts of colonic stool without obstruction or inflammation. Ultrasound of the right upper quadrant IMPRESSION: 1. Cholelithiasis. No sonographic evidence of acute cholecystitis. 2. The common bile duct is not distinctly defined due to respiratory and bowel gas artifact. Common bile duct stones noted on CT are not sonographically defined. Consider MRCP if additional imaging is clinically warranted. EKG: to my interpretation reveals a sinus rhythm with sinus arrhythmia at 77 bpm, normal ST segments, no PVC, PAC. QTc is 432. DISPOSITION: Pending transfer Past Med/Surg History Problem List (Updated 01/27/24 @ 06:35 by Emilia Kulkarni MD) Transaminitis (Acute) Choledocholithiasis (Acute) Coarse tremors (Chronic) Hypoxia (Acute) Sepsis (Acute) Type 2 DM with CKD stage 3 and hypertension Acute renal failure superimposed on stage 3 chronic kidney disease Pneumonia (Acute) Generalized weakness (Acute) Fall Pneumonia (Acute) Weakness (Acute) Medical History (Updated 01/27/24 @ 06:35 by Emilia Kulkarni MD) Diabetes Surgical History No pertinent past surgical history Family History Other Family history non-contributory Social History Smoking Status: Never smoker Hx Alcohol Use: No Hx Substance Use: No Preferred Language: Syrian Communication Ability: Impaired Communication Ability Comment: speaks czech, has dementia Frame Nailer Required: Yes Beliefs That Will Affect Care: None marital status: Single Current Living Situation: Family Current Living Situation Comment: 24hr care current occupational status: retired Feels Safe at Home: Yes Assistive Devices: Glasses and Walker Allergies Allergies Allergy/AdvReac Type Severity Reaction Status Date / Time metformin Allergy Unknown UNK Verified 01/26/24 21:21 salicylates Allergy Unknown . Verified 01/26/24 21:21 Home Meds Home Medications Medication Instructions Recorded Confirmed aspirin 81 mg tablet,delayed 81 mg PO QAM 03/07/18 01/26/24 release brimonidine 0.2 %-timolol 0.5 % 1 drp OPB BID 03/07/18 01/26/24 eye drops (Combigan) donepezil 10 mg tablet 10 mg PO QPM 03/07/18 01/26/24 finasteride 5 mg tablet 5 mg PO QAM 03/07/18 01/26/24 furosemide 40 mg tablet (Lasix) 40 mg PO UD 03/07/18 01/26/24 gabapentin 300 mg capsule 600 mg PO BID 03/07/18 01/26/24 (Neurontin) insulin glargine 100 unit/mL (3 30 unit subcut HS 03/07/18 01/26/24 mL) subcutaneous pen (Lantus Solostar U-100 Insulin) metoprolol tartrate 25 mg tablet 12.5 mg PO BID 03/07/18 01/26/24 nitroglycerin 0.4 mg sublingual 0.4 mg sublingual DIRECTED PRN 03/07/18 01/26/24 tablet Chest Pain omeprazole 20 mg capsule,delayed 20 mg PO QAM 03/07/18 01/26/24 release rosuvastatin 20 mg tablet 20 mg PO QAM 03/07/18 01/26/24 terazosin 2 mg capsule 2 mg PO HS 03/07/18 01/26/24 gabapentin 100 mg capsule 200 mg PO HS 03/15/19 01/26/24 benzonatate 100 mg capsule 100 mg PO TID PRN Cough 01/26/24 01/26/24 cholecalciferol (vitamin D3) 25 1,000 unit PO Q OTHER DAY 01/26/24 01/26/24 mcg (1,000 unit) capsule (Vitamin D3) famotidine 20 mg tablet 20 mg PO BID 01/26/24 01/26/24 guaifenesin 600 mg tablet, 600 mg PO Q12H PRN Congestion 01/26/24 01/26/24 extended release 12 hr insulin lispro 100 unit/mL See Rx Instructions .Route .COMPLEX 01/26/24 01/26/24 subcutaneous pen (Humalog KwikPen (U-100) Insulin) sertraline 50 mg tablet 25 mg PO QAM 01/26/24 01/26/24 Results & Data (ED) Vital Signs Vital Signs - 24 hr 01/26/24 10:35 01/26/24 10:45 01/26/24 10:59 Temperature 37.1 C Temperature Source Skin Pulse Rate 80 77 Pulse Rate [Apical] Pulse Rate from SpO2 Sensor Pulse Rhythm Regular Pulse Strength Normal Respiratory Rate 20 Respiratory Effort / Characteristics Non-Labored Spontaneous Respiratory Depth Normal Respiratory Pattern Blood Pressure 191/73 H Blood Pressure [Right Arm] Blood Pressure Mean 112 Blood Pressure Mean [Right Arm] Blood Pressure Position [Right Arm] Pulse Oximetry 95 95 Oxygen Delivery Method Room Air Room Air Oxygen Flow Rate 0 Sepsis Recent Fever Within 48 Hours No Sepsis New/Unexplained Change in Mental Status N/A Sepsis Action Taken by Nursing No Action Required 01/26/24 11:00 01/26/24 11:24 01/26/24 11:26 Temperature 36.9 C Temperature Source Oral Pulse Rate 78 Pulse Rate [Apical] 77 Pulse Rate from SpO2 Sensor Pulse Rhythm Pulse Strength Respiratory Rate 20 19 Respiratory Effort / Characteristics Non-Labored Spontaneous Respiratory Depth Normal Respiratory Pattern Regular Blood Pressure Blood Pressure [Right Arm] 133/70 Blood Pressure Mean Blood Pressure Mean [Right Arm] 91 Blood Pressure Position [Right Arm] Pulse Oximetry 95 96 Oxygen Delivery Method Room Air Room Air Oxygen Flow Rate Sepsis Recent Fever Within 48 Hours Sepsis New/Unexplained Change in Mental Status Sepsis Action Taken by Nursing 01/26/24 12:40 01/26/24 13:00 01/26/24 13:00 Temperature Temperature Source Pulse Rate 76 Pulse Rate [Apical] 76 76 Pulse Rate from SpO2 Sensor Pulse Rhythm Pulse Strength Respiratory Rate 16 16 16 Respiratory Effort / Characteristics Non-Labored Spontaneous Non-Labored Spontaneous Respiratory Depth Normal Normal Respiratory Pattern Regular Regular Blood Pressure 123/60 Blood Pressure [Right Arm] 112/66 123/60 Blood Pressure Mean 88 Blood Pressure Mean [Right Arm] 81 81 Blood Pressure Position [Right Arm] Semi-fowlers Pulse Oximetry 94 96 95 Oxygen Delivery Method Room Air Room Air Oxygen Flow Rate Sepsis Recent Fever Within 48 Hours Sepsis New/Unexplained Change in Mental Status Sepsis Action Taken by Nursing 01/26/24 13:30 01/26/24 13:42 01/26/24 14:00 Temperature Temperature Source Pulse Rate 75 76 Pulse Rate [Apical] 75 Pulse Rate from SpO2 Sensor 76 Pulse Rhythm Pulse Strength Respiratory Rate 16 14 20 Respiratory Effort / Characteristics Respiratory Depth Respiratory Pattern Blood Pressure 134/67 Blood Pressure [Right Arm] 112/62 Blood Pressure Mean 89 Blood Pressure Mean [Right Arm] 78 Blood Pressure Position [Right Arm] Semi-fowlers Pulse Oximetry 95 95 94 Oxygen Delivery Method Room Air Oxygen Flow Rate Sepsis Recent Fever Within 48 Hours Sepsis New/Unexplained Change in Mental Status Sepsis Action Taken by Nursing 01/26/24 15:57 01/26/24 16:00 01/26/24 17:00 Temperature 37.1 C Temperature Source Oral Pulse Rate 70 67 Pulse Rate [Apical] 71 Pulse Rate from SpO2 Sensor Pulse Rhythm Pulse Strength Respiratory Rate 14 15 18 Respiratory Effort / Characteristics Non-Labored Spontaneous Respiratory Depth Normal Respiratory Pattern Regular Blood Pressure 110/61 112/65 Blood Pressure [Right Arm] 108/61 Blood Pressure Mean 78 84 Blood Pressure Mean [Right Arm] 76 Blood Pressure Position [Right Arm] Lying Pulse Oximetry 95 95 98 Oxygen Delivery Method Room Air Oxygen Flow Rate Sepsis Recent Fever Within 48 Hours Sepsis New/Unexplained Change in Mental Status Sepsis Action Taken by Nursing 01/26/24 17:00 01/26/24 18:00 01/26/24 18:06 Temperature Temperature Source Pulse Rate 61 61 Pulse Rate [Apical] 61 Pulse Rate from SpO2 Sensor 61 61 Pulse Rhythm Pulse Strength Respiratory Rate 16 15 15 Respiratory Effort / Characteristics Non-Labored Respiratory Depth Normal Respiratory Pattern Blood Pressure 104/59 L Blood Pressure [Right Arm] 112/65 Blood Pressure Mean 79 Blood Pressure Mean [Right Arm] 80 Blood Pressure Position [Right Arm] Lying Pulse Oximetry 94 94 94 Oxygen Delivery Method Room Air Room Air Oxygen Flow Rate Sepsis Recent Fever Within 48 Hours Sepsis New/Unexplained Change in Mental Status Sepsis Action Taken by Nursing 01/26/24 18:45 01/26/24 18:51 01/26/24 20:00 Temperature Temperature Source Pulse Rate 64 61 Pulse Rate [Apical] 69 Pulse Rate from SpO2 Sensor 64 61 Pulse Rhythm Pulse Strength Respiratory Rate 15 25 H 14 Respiratory Effort / Characteristics Non-Labored Spontaneous Respiratory Depth Normal Respiratory Pattern Blood Pressure Blood Pressure [Right Arm] 135/61 Blood Pressure Mean Blood Pressure Mean [Right Arm] 85 Blood Pressure Position [Right Arm] Semi-fowlers Pulse Oximetry 97 95 99 Oxygen Delivery Method Room Air Oxygen Flow Rate Sepsis Recent Fever Within 48 Hours Sepsis New/Unexplained Change in Mental Status Sepsis Action Taken by [facility] Medications Current Medication List: was personally reviewed by me Laboratory Data Attestation: I reviewed the patient's lab results. 01/26/24 10:54 01/26/24 10:54 Lab Results 01/26/24 01/26/24 Range/Units 10:54 18:59 WBC 8.16 (4.8-10.8) K/ul RBC 3.83 L (4.70-6.10) M/uL Hgb 11.3 L (14.0-18.0) g/dl Hct 35.0 L (42.0-52.0) % MCV 91.4 (80.0-100.0) fL MCH 29.5 (25.0-34.0) pg MCHC 32.3 (32.0-36.0) g/dL RDW Std Deviation 48.8 H (36.4-46.3) fL RDW Coeff of Damaris 14.5 (11.5-14.5) % Plt Count 197 (130-400) K/uL MPV 10.8 (9.4-12.4) fL Immature Gran % (Auto) 0.4 % Neut % (Auto) 87.2 % Lymph % (Auto) 5.5 % [place] % (Auto) 5.9 % Eos % (Auto) 0.6 % Baso % (Auto) 0.4 % Neut # (Auto) 7.12 H (1.40-6.50) K/uL Lymph # (Auto) 0.45 L (1.20-3.40) K/uL [place] # (Auto) 0.48 (0.11-0.59) K/uL Eos # (Auto) 0.05 (0.00-0.50) K/uL Baso # (Auto) 0.03 (0.00-0.20) K/uL Immature Gran # (Auto) 0.03 (0.01-0.20) K/uL Sodium 140 (136-145) mmol/L Potassium 4.2 (3.5-5.1) mmol/L Chloride 105 (98-107) mmol/L Carbon Dioxide 27 (21-32) mmol/L Anion Gap 8 (3-11) BUN 43 H (6-23) mg/dl Creatinine 1.87 H (0.6-1.4) mg/dl Est Cr Clr Drug Dosing 26.4 ml/min eGFR 34.16 BUN/Creatinine Ratio 23.0 H (10-20) Glucose 96 (70-99(Fasting)) mg/dl POC Glucose 121 H (70-99) mg/dl Calcium 8.8 (8.6-10.3) mg/dl Magnesium 1.9 (1.7-2.4) mg/dl Total Bilirubin 0.7 (0.2-1.0) mg/dl AST 353 H (13-39) U/L ALT 199 H (7-52) U/L Alkaline Phosphatase 155 H (34-104) U/L Troponin I High Sens 10.6 (0-20) pg/ml Total Protein 6.9 (6.0-8.3) gm/dl Albumin 3.5 (3.4-5.0) gm/dl Globulin 3.4 (2.5-4.0) gm/dl Albumin/Globulin Ratio 1.0 (0.9-2) Lipase 24 (11-82) U/L Administered Medications Famotidine (Famotidine 20 Mg Tab) 20 mg PO BID [facility] Stop: 02/25/24 21:44 Last Admin: 01/26/24 23:28 Dose: 20 mg Documented By: KORIN Lactated Ringer's (Lr) 1,000 mls @ 60 mls/hr IV .[id number] ONE Stop: 01/27/24 13:35 Last Admin: 01/26/24 23:46 Dose: 60 mls/hr Documented By: KORIN Insulin Aspart (Insulin Aspart Per Unit Charge) 0 units SC Q6 NAHUN Stop: 02/25/24 22:15 Last Admin: 01/26/24 23:41 Dose: 6 units Documented By: KORIN Co-signed By: ZENAIDA Metoprolol Tartrate (Metoprolol Tartrate 25 Mg Tab) 12.5 mg PO BID [facility] Stop: 02/25/24 21:44 Last Admin: 01/26/24 23:28 Dose: 12.5 mg Documented By: KORIN Senna/Docusate Sodium (Docusate Sodium/Senna 50/8.6mg Tab) 1 tab PO QAM NAHUN Stop: 02/25/24 23:29 Last Admin: 01/27/24 02:22 Dose: Not Given Documented By: KORIN Terazosin HCl (Terazosin Hcl 1 Mg Cap) 2 mg PO HS NAHUN Stop: 02/25/24 21:34 Last Admin: 01/26/24 23:26 Dose: 2 mg Documented By: KORIN Discontinued Medications Dextrose/Sodium Chloride (D5w And Nss) 1,000 mls @ 100 mls/hr IV .Q10H NAHUN Stop: 01/27/24 18:44 Last Infusion: 01/26/24 21:51 Dose: 0 mls/hr Documented By: Admin: 01/26/24 18:50 Dose: 100 mls/hr Documented By: TAE Insulin Glargine (Lantus Per Unit Charge) 5 units SQ NOW STA Stop: 01/27/24 02:08 Last Admin: 01/27/24 03:32 Dose: 5 units Documented By: KORIN Co-signed By: RES Imaging Data Radiologist's Impression: Chest X-Ray 01/26/24 11:14 EXAM:Radiograph of the Chest 1 View INDICATION: Chest pain. TECHNIQUE: Frontal view of the chest. COMPARISON:12/15/2022 FINDINGS: Lungs and pleural spaces:No consolidation or pulmonary edema. No pleural effusion or pneumothorax. Shallow inspiration with mild basilar vascular crowding. Heart: Shape and configuration within normal limits allowing for technique. Mediastinum: Normal contour. Bones/joints: No fracture, erosion or dislocation. Soft tissues: No abnormality noted. No radiopaque foreign body noted. Upper abdomen: No abnormality noted. IMPRESSION: No acute cardiopulmonary disease. ACT 112: Negative or not required by law. Electronically signed by Renea Palencia 01-26-2024 11:39 AM Abdomen/Pelvis CT 01/26/24 12:45 EXAM: CT Abdomen and Pelvis Without Intravenous Contrast INDICATION: Upper abdominal pain. Elevated LFTs. TECHNIQUE: Axial computed tomography images of the abdomen and pelvis without intravenous contrast. Sagittal and coronal reformatted images were created and reviewed. This CT exam was performed using one or more of the following dose reduction techniques: automated exposure control, adjustment of the mA and/or kV according to patient size, and/or use of iterative reconstruction technique. COMPARISON: 03/07/2018 FINDINGS: Limitations: None. Lung bases: There is mild airway thickening in the lung bases. Pleural space: No visualized pleural effusion or pneumothorax. Heart: No abnormality noted. Mediastinum: No abnormality noted. ABDOMEN: Liver: Lack of intravenous contrast limits detection of some masses. No abnormality noted. Gallbladder and bile ducts: The gallbladder is mildly distended and contains multiple small stones. There is an approximate 2 cm stone in the cystic duct. There are multiple similar sized stones in the distal common bile duct. The duct is not dilated. No biliary air noted. Pancreas: No pancreatic mass, calcification, inflammation or ductal dilation noted. Spleen: No significant abnormality noted. Adrenals: No significant abnormality noted. Kidneys and ureters: Simple right renal cyst/s. No simple cyst follow-up necessary. Left kidney appears normal. No renal stone, hydronephrosis or perinephric fluid. Stable bilateral perinephric scarring. No stone, hydronephrosis or urinary gas. Stomach and bowel: Moderate to large amounts of stool throughout the colon without obstruction. PELVIS: Appendix: No findings to suggest acute appendicitis. Bladder: Thickened collapsed urinary bladder. No stones or gas. Reproductive: No abnormalities noted. ABDOMEN and PELVIS: Intraperitoneal space: No free air. No significant fluid collection. Bones/joints: Degenerative changes noted throughout the spine. No acute osseous abnormality seen. Soft tissues: Umbilical hernia containing fat. Vasculature: Atherosclerotic calcification of the aorta and branches. No aneurysm. Lymph nodes: No pathologically enlarged lymph nodes. IMPRESSION: 1. Cholelithiasis and choledocholithiasis without ductal dilatation. 2. Cystitis. Correlate with urinalysis. 3. Moderate to large amounts of colonic stool without obstruction or inflammation. ACT 112: Negative or not required by law. Electronically signed by Renea Palencia 01-26-2024 13:08 PM Gallbladder Ultrasound 01/26/24 12:46 EXAM: US Abdomen Limited Gallbladder INDICATION: Chest pain. Elevated liver function tests. TECHNIQUE: Real-time ultrasound of the gallbladder with image documentation. COMPARISON: CT abdomen the same day FINDINGS: Gallbladder: Multiple gallstones noted. No wall thickening. Negative sonographic Sosa sign. Common bile duct: The common bile duct is poorly visualized due to artifact. Stones seen on CT are not defined. Pancreas: No significant abnormality noted. Liver: Normal size. Smooth contour. No ductal dilatation. No visible mass. IMPRESSION: 1. Cholelithiasis. No sonographic evidence of acute cholecystitis. 2. The common bile duct is not distinctly defined due to respiratory and bowel gas artifact. Common bile duct stones noted on CT are not sonographically defined. Consider MRCP if additional imaging is clinically warranted. ACT 112: Negative or not required by law. Electronically signed by Renea Palencia 01-26-2024 2:37 PM Discharge Plan Visit Data Chief Complaint: Chest Pain Stated Complaint: CHEST PAIN AND ABDOMINAL PAIN ED Provider: Pedro Story Discharge Problem: Choledocholithiasis, Transaminitis Patient Disposition: Admitted As Inpatient Discharge Instructions Interventions: ED Discharge Assessment Last Done: 01/26/24 21:54
[2024-01-26 11:43] LABS: Basophils # (auto) 0.03 K/uL (0.00-0.20); Basophils % (auto) 0.4 %; Eosinophils # (auto) 0.05 K/uL (0.00-0.50); Eosinophils % (auto) 0.6 %; Hemoglobin 11.3 g/dl (14.0-18.0); Immature Granulocytes # (auto) 0.03 K/uL (0.01-0.20); Immature Granulocytes % (auto) 0.4 %; Lymphocytes # (auto) 0.45 K/uL (1.20-3.40); Lymphocytes % (auto) 5.5 %; Mean Corpuscular Hemoglobin 29.5 pg (25.0-34.0); Mean Corpuscular Hgb Conc 32.3 g/dL (32.0-36.0); Mean Corpuscular Volume 91.4 fL (80.0-100.0); Mean Platelet Volume 10.8 fL (9.4-12.4); Monocytes # (auto) 0.48 K/uL (0.11-0.59); Monocytes % (auto) 5.9 %; Neutrophils # (auto) 7.12 K/uL (1.40-6.50); Neutrophils % (auto) 87.2 %; Platelet Count 197 K/uL (130-400); RDW Coefficient of Variation 14.5 % (11.5-14.5); RDW Standard Deviation 48.8 fL (36.4-46.3); Red Blood Count 3.83 M/uL (4.70-6.10); White Blood Count 8.16 K/ul (4.8-10.8)
[2024-01-26 11:55] LABS: Albumin Level 3.5 gm/dl (3.4-5.0); Bilirubin,Total 0.7 mg/dl (0.2-1.0); Calcium 8.8 mg/dl (8.6-10.3); Creatinine Clr Calc Pharmacy 26.4 ml/min; Globulin 3.4 gm/dl (2.5-4.0); Potassium 4.2 mmol/L (3.5-5.1); Total Protein 6.9 gm/dl (6.0-8.3)
[2024-01-26 12:00] LABS: Troponin I High Sensitivity 10.6 pg/ml (0-20)
--- NOTE | 2024-01-26 13:09 | CT Scan Report ---
EXAM: CT Abdomen and Pelvis Without Intravenous Contrast INDICATION: Upper abdominal pain. Elevated LFTs. TECHNIQUE: Axial computed tomography images of the abdomen and pelvis without intravenous contrast. Sagittal and coronal reformatted images were created and reviewed. This CT exam was performed using one or more of the following dose reduction techniques: automated exposure control, adjustment of the mA and/or kV according to patient size, and/or use of iterative reconstruction technique. COMPARISON: 03/07/2018 FINDINGS: Limitations: None. Lung bases: There is mild airway thickening in the lung bases. Pleural space: No visualized pleural effusion or pneumothorax. Heart: No abnormality noted. Mediastinum: No abnormality noted. ABDOMEN: Liver: Lack of intravenous contrast limits detection of some masses. No abnormality noted. Gallbladder and bile ducts: The gallbladder is mildly distended and contains multiple small stones. There is an approximate 2 cm stone in the cystic duct. There are multiple similar sized stones in the distal common bile duct. The duct is not dilated. No biliary air noted. Pancreas: No pancreatic mass, calcification, inflammation or ductal dilation noted. Spleen: No significant abnormality noted. Adrenals: No significant abnormality noted. Kidneys and ureters: Simple right renal cyst/s. No simple cyst follow-up necessary. Left kidney appears normal. No renal stone, hydronephrosis or perinephric fluid. Stable bilateral perinephric scarring. No stone, hydronephrosis or urinary gas. Stomach and bowel: Moderate to large amounts of stool throughout the colon without obstruction. PELVIS: Appendix: No findings to suggest acute appendicitis. Bladder: Thickened collapsed urinary bladder. No stones or gas. Reproductive: No abnormalities noted. ABDOMEN and PELVIS: Intraperitoneal space: No free air. No significant fluid collection. Bones/joints: Degenerative changes noted throughout the spine. No acute osseous abnormality seen. Soft tissues: Umbilical hernia containing fat. Vasculature: Atherosclerotic calcification of the aorta and branches. No aneurysm. Lymph nodes: No pathologically enlarged lymph nodes. IMPRESSION: 1. Cholelithiasis and choledocholithiasis without ductal dilatation. 2. Cystitis. Correlate with urinalysis. 3. Moderate to large amounts of colonic stool without obstruction or inflammation. ACT 112: Negative or not required by law. Electronically signed by Renea Palencia 01-26-2024 13:08 PM
--- NOTE | 2024-01-26 14:37 | Ultrasound Report ---
EXAM: US Abdomen Limited Gallbladder INDICATION: Chest pain. Elevated liver function tests. TECHNIQUE: Real-time ultrasound of the gallbladder with image documentation. COMPARISON: CT abdomen the same day FINDINGS: Gallbladder: Multiple gallstones noted. No wall thickening. Negative sonographic Sosa sign. Common bile duct: The common bile duct is poorly visualized due to artifact. Stones seen on CT are not defined. Pancreas: No significant abnormality noted. Liver: Normal size. Smooth contour. No ductal dilatation. No visible mass. IMPRESSION: 1. Cholelithiasis. No sonographic evidence of acute cholecystitis. 2. The common bile duct is not distinctly defined due to respiratory and bowel gas artifact. Common bile duct stones noted on CT are not sonographically defined. Consider MRCP if additional imaging is clinically warranted. ACT 112: Negative or not required by law. Electronically signed by Renea Palencia 01-26-2024 2:37 PM
[2024-01-26] MEDS: D5W AND NSS 1,000 ML IV SCH (18:50)
--- NOTE | 2024-01-26 20:16 | Emergency Department Note ---
ED Visit Note Patient was signed out to me at change of shift by Dr. Kulkarni, patient was diagnosed with choledocholithiasis and is awaiting transfer to [facility] in [place] and at the time of signout at 1999 he is still awaiting a bed assignment. The ED audio visual secretary did reach back out to [facility] and there will be no bed availability tonight and the earliest bed assignment will be tomorrow morning. I did assess the patient at the bedside and he is in no acute distress, he is hemodynamically stable, he denies any abdominal pain with the bedside RN acting as neurology physician assistant. He does not have any abdominal tenderness on my exam. Given the prolonged wait time for a bed assignment for transfer, I did discuss the patient's presentation with the on-call hospitalist, Dr. Chau, and the patient was admitted to the hospitalist service in stable condition for further management while awaiting transfer. .
--- NOTE | 2024-01-26 20:52 | History & Physical Report ---
Date of Service January 26, 2024 Assessment & Plan (1) Choledocholithiasis: Plan: Abdominal pain secondary to choledocholithiasis Rule out sepsis for now Rule out UTI given abnormal CT Presumptive CAD as per records on aspirin prophylaxis hypertension, stable hyperlipidemia, on statin Rx DM2 insulin requiring, reasonable control given chronic kidney dysfunction, hemoglobin A1c of 8.27 September 2023 ARF on CRI secondary to illness chronic anemia, hemoglobin at baseline hx dementia/essential tremors/peripheral neuropathy OBS Medical Check UA, monitor creatinine response to IVF Transfer to [facility] once bed available. (Patient kindly accepted for transfer by Dr. Fong of hospitalist service. Transfer paperwork already completed at the ER.) Basal bolus insulin adjusted for n.p.o. status, ISS BG goal 1 10-1 40 DVT prophylaxis. SCDs re: possible procedure Full code Patient daughter requests updates from providers. Ms. Isadora Aguiar, contact #[phone]. Text document was generated using [employer] voice recognition software. It may contain grammatical or spelling errors. Kindly contact undersigned for clarification of any documentation item in question. History of Present Illness Chief Complaint: Abdominal pain Primary Care Provider: Manjeet Mosley MD History obtained from patient, family, and records. Limited history from patient secondary to language barrier. Medical history significant for presumptive CAD as per records, hypertension, hyperlipidemia, DM2 insulin requiring, CRI (baseline creatinine 1.5), chronic anemia (baseline hemoglobin of 11), dementia, essential tremors, peripheral neuropathy, GERD, macular degeneration, glaucoma. Last confinement 2018 for sepsis secondary to community-acquired pneumonia. 1 day history of achy abdominal pain going to the chest without other symptoms. No prior episodes. No SOB or cough symptoms. No nausea symptoms. No fever, no chills. Patient brought by family to ER for evaluation. Patient accepted for transfer at [facility] pending bed availability. 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 Verified 01/26/24 21:21 Home Medications Medication Instructions Recorded Confirmed Type aspirin 81 mg tablet,delayed 81 mg PO QAM 03/07/18 01/26/24 History release brimonidine 0.2 %-timolol 0.5 % 1 drp OPB BID 03/07/18 01/26/24 History eye drops (Combigan) donepezil 10 mg tablet 10 mg PO QPM 03/07/18 01/26/24 History finasteride 5 mg tablet 5 mg PO QAM 03/07/18 01/26/24 History furosemide 40 mg tablet (Lasix) 40 mg PO UD 03/07/18 01/26/24 History gabapentin 300 mg capsule 600 mg PO BID 03/07/18 01/26/24 History (Neurontin) insulin glargine 100 unit/mL (3 30 unit subcut HS 03/07/18 01/26/24 History mL) subcutaneous pen (Lantus Solostar U-100 Insulin) metoprolol tartrate 25 mg tablet 12.5 mg PO BID 03/07/18 01/26/24 History nitroglycerin 0.4 mg sublingual 0.4 mg sublingual DIRECTED PRN 03/07/18 01/26/24 History tablet Chest Pain omeprazole 20 mg capsule,delayed 20 mg PO QAM 03/07/18 01/26/24 History release rosuvastatin 20 mg tablet 20 mg PO QAM 03/07/18 01/26/24 History terazosin 2 mg capsule 2 mg PO HS 03/07/18 01/26/24 History gabapentin 100 mg capsule 200 mg PO HS 03/15/19 01/26/24 History benzonatate 100 mg capsule 100 mg PO TID PRN Cough 01/26/24 01/26/24 History cholecalciferol (vitamin D3) 25 1,000 unit PO Q OTHER DAY 01/26/24 01/26/24 History mcg (1,000 unit) capsule (Vitamin D3) famotidine 20 mg tablet 20 mg PO BID 01/26/24 01/26/24 History guaifenesin 600 mg tablet, 600 mg PO Q12H PRN Congestion 01/26/24 01/26/24 History extended release 12 hr insulin lispro 100 unit/mL See Rx Instructions .Route .COMPLEX 01/26/24 01/26/24 History subcutaneous pen (Humalog KwikPen (U-100) Insulin) sertraline 50 mg tablet 25 mg PO QAM 01/26/24 01/26/24 History Past Med/Surg History Problem List (Updated 01/26/24 @ 23:41 by Jesús Chau MD) Choledocholithiasis Coarse tremors (Chronic) Hypoxia (Acute) Sepsis (Acute) Type 2 DM with CKD stage 3 and hypertension Acute renal failure superimposed on stage 3 chronic kidney disease Pneumonia (Acute) Generalized weakness (Acute) Fall Pneumonia (Acute) Weakness (Acute) Medical History (Updated 01/26/24 @ 23:41 by Jesús Chau MD) Diabetes Surgical History No pertinent past surgical history Family History Other Family history non-contributory Social History Smoking Status: Never smoker Hx Alcohol Use: No Hx Substance Use: No Preferred Language: Arabic Communication Ability: Impaired Communication Ability Comment: speaks nigerian, has dementia 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 Beliefs That Will Affect Care: None marital status: Single Current Living Situation: Family Current Living Situation Comment: 24hr care current occupational status: retired Feels Safe at Home: Yes Assistive Devices: Glasses and Walker Review of Systems Review of Systems: Could not be reliably obtained secondary to dementia Physical Exam Physical Exam: GENERAL: Demented, comfortable, pleasant, no respiratory distress SKIN: Pallor, warm HEENT: Alopecia, pale palpebral conjunctivae, no ptosis, dry buccal mucosa NECK : Supple, no tenderness CHEST : CTA, no tenderness HEART : RRR, no obvious murmurs ABDOMEN: Some distention, minimal epigastric tenderness EXTREMITIES : No LE swelling/tenderness, no other conspicuous deformities noted NEUROLOGIC : Demented, no facial asymmetry, rest tremors, no other gross focality Results & Data Results & Data Vital Signs (Past 12 Hours) Vital Signs Temp Pulse Pulse Resp BP BP Pulse Ox 01/26/24 20:00 69 14 135/61 99 01/26/24 18:51 61 25 H 95 01/26/24 18:45 64 15 97 01/26/24 18:06 61 15 94 01/26/24 18:00 61 15 104/59 L 94 01/26/24 17:00 61 16 112/65 94 01/26/24 17:00 67 18 112/65 98 01/26/24 16:00 70 15 110/61 95 01/26/24 15:57 37.1 C 71 14 108/61 95 01/26/24 14:00 75 20 112/62 94 01/26/24 13:42 76 14 95 01/26/24 13:30 75 16 134/67 95 01/26/24 13:00 76 16 123/60 95 01/26/24 13:00 76 16 123/60 96 01/26/24 12:40 76 16 112/66 94 01/26/24 11:26 36.9 C 77 19 96 01/26/24 11:24 78 20 95 01/26/24 11:00 133/70 01/26/24 10:59 77 01/26/24 10:45 95 01/26/24 10:35 37.1 C 80 20 191/73 H 95 O2 Del Method O2 Flow Rate 01/26/24 20:00 Room Air 01/26/24 18:51 01/26/24 18:45 01/26/24 18:06 01/26/24 18:00 Room Air 01/26/24 17:00 Room Air 01/26/24 17:00 01/26/24 16:00 01/26/24 15:57 Room Air 01/26/24 14:00 Room Air 01/26/24 13:42 01/26/24 13:30 01/26/24 13:00 01/26/24 13:00 Room Air 01/26/24 12:40 Room Air 01/26/24 11:26 Room Air 01/26/24 11:24 Room Air 01/26/24 11:00 01/26/24 10:59 01/26/24 10:45 Room Air 0 01/26/24 10:35 Room Air Laboratory Results Laboratory Results WBC 8.16 K/ul (4.8-10.8) 01/26/24 10:54 RBC 3.83 M/uL (4.70-6.10) L 01/26/24 10:54 Hgb 11.3 g/dl (14.0-18.0) L 01/26/24 10:54 Hct 35.0 % (42.0-52.0) L 01/26/24 10:54 MCV 91.4 fL (80.0-100.0) 01/26/24 10:54 MCH 29.5 pg (25.0-34.0) 01/26/24 10:54 MCHC 32.3 g/dL (32.0-36.0) 01/26/24 10:54 RDW Std Deviation 48.8 fL (36.4-46.3) H 01/26/24 10:54 RDW Coeff of Damaris 14.5 % (11.5-14.5) 01/26/24 10:54 Plt Count 197 K/uL (130-400) 01/26/24 10:54 MPV 10.8 fL (9.4-12.4) 01/26/24 10:54 Immature Gran % (Auto) 0.4 % 01/26/24 10:54 Neut % (Auto) 87.2 % 01/26/24 10:54 Lymph % (Auto) 5.5 % 01/26/24 10:54 Camp % (Auto) 5.9 % 01/26/24 10:54 Eos % (Auto) 0.6 % 01/26/24 10:54 Baso % (Auto) 0.4 % 01/26/24 10:54 Neut # (Auto) 7.12 K/uL (1.40-6.50) H 01/26/24 10:54 Lymph # (Auto) 0.45 K/uL (1.20-3.40) L 01/26/24 10:54 Camp # (Auto) 0.48 K/uL (0.11-0.59) 01/26/24 10:54 Eos # (Auto) 0.05 K/uL (0.00-0.50) 01/26/24 10:54 Baso # (Auto) 0.03 K/uL (0.00-0.20) 01/26/24 10:54 Immature Gran # (Auto) 0.03 K/uL (0.01-0.20) 01/26/24 10:54 Sodium 140 mmol/L (136-145) 01/26/24 10:54 Potassium 4.2 mmol/L (3.5-5.1) 01/26/24 10:54 Chloride 105 mmol/L (98-107) 01/26/24 10:54 Carbon Dioxide 27 mmol/L (21-32) 01/26/24 10:54 Anion Gap 8 (3-11) 01/26/24 10:54 BUN 43 mg/dl (6-23) H 01/26/24 10:54 Creatinine 1.87 mg/dl (0.6-1.4) H 01/26/24 10:54 Est Cr Clr Drug Dosing 26.4 ml/min 01/26/24 10:54 eGFR 34.16 01/26/24 10:54 BUN/Creatinine Ratio 23.0 (10-20) H 01/26/24 10:54 Glucose 96 mg/dl (70-99(Fasting)) 01/26/24 10:54 POC Glucose 121 mg/dl (70-99) H 01/26/24 18:59 Calcium 8.8 mg/dl (8.6-10.3) 01/26/24 10:54 Total Bilirubin 0.7 mg/dl (0.2-1.0) 01/26/24 10:54 AST 353 U/L (13-39) H 01/26/24 10:54 ALT 199 U/L (7-52) H 01/26/24 10:54 Alkaline Phosphatase 155 U/L (34-104) H 01/26/24 10:54 Troponin I High Sens 10.6 pg/ml (0-20) 01/26/24 10:54 Total Protein 6.9 gm/dl (6.0-8.3) 01/26/24 10:54 Albumin 3.5 gm/dl (3.4-5.0) 01/26/24 10:54 Globulin 3.4 gm/dl (2.5-4.0) 01/26/24 10:54 Albumin/Globulin Ratio 1.0 (0.9-2) 01/26/24 10:54 Lipase 24 U/L (11-82) 01/26/24 10:54 Impressions Chest X-Ray 01/26/24 11:14 EXAM:Radiograph of the Chest 1 View INDICATION: Chest pain. TECHNIQUE: Frontal view of the chest. COMPARISON:12/15/2022 FINDINGS: Lungs and pleural spaces:No consolidation or pulmonary edema. No pleural effusion or pneumothorax. Shallow inspiration with mild basilar vascular crowding. Heart: Shape and configuration within normal limits allowing for technique. Mediastinum: Normal contour. Bones/joints: No fracture, erosion or dislocation. Soft tissues: No abnormality noted. No radiopaque foreign body noted. Upper abdomen: No abnormality noted. IMPRESSION: No acute cardiopulmonary disease. ACT 112: Negative or not required by law. Electronically signed by Renea Paelncia 01-26-2024 11:39 AM Abdomen/Pelvis CT 01/26/24 12:45 EXAM: CT Abdomen and Pelvis Without Intravenous Contrast INDICATION: Upper abdominal pain. Elevated LFTs. TECHNIQUE: Axial computed tomography images of the abdomen and pelvis without intravenous contrast. Sagittal and coronal reformatted images were created and reviewed. This CT exam was performed using one or more of the following dose reduction techniques: automated exposure control, adjustment of the mA and/or kV according to patient size, and/or use of iterative reconstruction technique. COMPARISON: 03/07/2018 FINDINGS: Limitations: None. Lung bases: There is mild airway thickening in the lung bases. Pleural space: No visualized pleural effusion or pneumothorax. Heart: No abnormality noted. Mediastinum: No abnormality noted. ABDOMEN: Liver: Lack of intravenous contrast limits detection of some masses. No abnormality noted. Gallbladder and bile ducts: The gallbladder is mildly distended and contains multiple small stones. There is an approximate 2 cm stone in the cystic duct. There are multiple similar sized stones in the distal common bile duct. The duct is not dilated. No biliary air noted. Pancreas: No pancreatic mass, calcification, inflammation or ductal dilation noted. Spleen: No significant abnormality noted. Adrenals: No significant abnormality noted. Kidneys and ureters: Simple right renal cyst/s. No simple cyst follow-up necessary. Left kidney appears normal. No renal stone, hydronephrosis or perinephric fluid. Stable bilateral perinephric scarring. No stone, hydronephrosis or urinary gas. Stomach and bowel: Moderate to large amounts of stool throughout the colon without obstruction. PELVIS: Appendix: No findings to suggest acute appendicitis. Bladder: Thickened collapsed urinary bladder. No stones or gas. Reproductive: No abnormalities noted. ABDOMEN and PELVIS: Intraperitoneal space: No free air. No significant fluid collection. Bones/joints: Degenerative changes noted throughout the spine. No acute osseous abnormality seen. Soft tissues: Umbilical hernia containing fat. Vasculature: Atherosclerotic calcification of the aorta and branches. No aneurysm. Lymph nodes: No pathologically enlarged lymph nodes. IMPRESSION: 1. Cholelithiasis and choledocholithiasis without ductal dilatation. 2. Cystitis. Correlate with urinalysis. 3. Moderate to large amounts of colonic stool without obstruction or inflammation. ACT 112: Negative or not required by law. Electronically signed by Renea Palencia 01-26-2024 13:08 PM Gallbladder Ultrasound 01/26/24 12:46 EXAM: US Abdomen Limited Gallbladder INDICATION: Chest pain. Elevated liver function tests. TECHNIQUE: Real-time ultrasound of the gallbladder with image documentation. COMPARISON: CT abdomen the same day FINDINGS: Gallbladder: Multiple gallstones noted. No wall thickening. Negative sonographic Sosa sign. Common bile duct: The common bile duct is poorly visualized due to artifact. Stones seen on CT are not defined. Pancreas: No significant abnormality noted. Liver: Normal size. Smooth contour. No ductal dilatation. No visible mass. IMPRESSION: 1. Cholelithiasis. No sonographic evidence of acute cholecystitis. 2. The common bile duct is not distinctly defined due to respiratory and bowel gas artifact. Common bile duct stones noted on CT are not sonographically defined. Consider MRCP if additional imaging is clinically warranted. ACT 112: Negative or not required by law. Electronically signed by Renea Palencia 01-26-2024 2:37 PM Diagnostic Findings EKG as per my interpretation :Rate 80, NSR, normal axis, no ischemia
[2024-01-26] MEDS ORDERED: traMADol HCL 50 MG TABLET PO PRN (20:55)
[2024-01-26] MEDS ORDERED: HYDROmorphone INJ 0.5 MG/0.5 ML SYR IV PRN (20:55)
[2024-01-26] MEDS ORDERED: PROMETHAZINE 6.25 MG/50.25 ML BAG IV PRN (20:55)
[2024-01-26 21:09] LABS: Magnesium 1.9 mg/dl (1.7-2.4)
[2024-01-26] MEDS ORDERED: DEXTROSE 50% 50 ML SYRINGE IV PRN ×2 (21:45→22:16)
[2024-01-26] MEDS ORDERED: GLUCAGON FOR INJ 1 MG VIAL SQ PRN ×2 (21:45→22:16)
[2024-01-26] MEDS ORDERED: GLUCOSE 40% GEL 15 GM TUBE PO PRN ×2 (21:45→22:16)
[2024-01-26] MEDS ORDERED: GLUCOSE 10 TAB/TUBE PO PRN ×2 (21:45→22:16)
[2024-01-26] MEDS ORDERED: CARBOHYDRATES FOR HYPOGLYCEMIA PO PRN (22:16)
[2024-01-26] MEDS: TERAZOSIN HCL 1 MG CAP PO SCH (23:26)
[2024-01-26] MEDS: FAMOTIDINE 20 MG TAB PO SCH (23:28)
[2024-01-26] MEDS: METOPROLOL TARTRATE 25 MG TAB PO SCH (23:28)
[2024-01-26] MEDS: INSULIN ASPART PER UNIT CHARGE SC SCH (23:41)
[2024-01-26] MEDS: LACTATED RINGER'S 1,000 ML IV ONE (23:46)
[2024-01-27] MEDS: DOCUSATE SODIUM/SENNA 50/8.6MG TAB PO SCH (02:22)
[2024-01-27] MEDS: LANTUS PER UNIT CHARGE SQ STA (03:32)
[2024-01-27 07:32] LABS: Basophils # (auto) 0.01 K/uL (0.00-0.20); Basophils % (auto) 0.1 %; Hematocrit (blood only) 32.5 % (42.0-52.0); Hemoglobin 10.7 g/dl (14.0-18.0); Immature Granulocytes # (auto) 0.02 K/uL (0.01-0.20); Immature Granulocytes % (auto) 0.3 %; Lymphocytes # (auto) 0.51 K/uL (1.20-3.40); Lymphocytes % (auto) 6.8 %; Mean Corpuscular Hemoglobin 29.6 pg (25.0-34.0); Mean Corpuscular Hgb Conc 32.9 g/dL (32.0-36.0); Mean Platelet Volume 11.2 fL (9.4-12.4); Monocytes # (auto) 0.69 K/uL (0.11-0.59); Monocytes % (auto) 9.1 %; Neutrophils # (auto) 6.32 K/uL (1.40-6.50); Neutrophils % (auto) 83.7 %; Platelet Count 179 K/uL (130-400); RDW Coefficient of Variation 14.8 % (11.5-14.5); RDW Standard Deviation 48.8 fL (36.4-46.3); Red Blood Count 3.61 M/uL (4.70-6.10); White Blood Count 7.55 K/ul (4.8-10.8)
[2024-01-27 07:55] LABS: Albumin Globulin Ratio 0.9 (0.9-2); BUN Creatinine Ratio 23.2 (10-20); Bilirubin,Total 0.6 mg/dl (0.2-1.0); Calcium 8.4 mg/dl (8.6-10.3); Creatinine Clr Calc Pharmacy 30.1 ml/min; Globulin 3.2 gm/dl (2.5-4.0); Potassium 4.1 mmol/L (3.5-5.1); Total Protein 6.2 gm/dl (6.0-8.3)
[2024-01-27] MEDS: PANTOprazole 40 MG TAB PO SCH (09:25)
[2024-01-27] MEDS: ACETAMINOPHEN 500 MG TAB PO PRN (09:25)
[2024-01-27] MEDS: GABAPENTIN 100 MG CAP PO SCH (09:25)
[2024-01-27] MEDS: SERTRALINE HCL 50 MG TABLET PO SCH (09:26)
[2024-01-27] MEDS: LANTUS PER UNIT CHARGE SQ SCH (09:27)
--- NOTE | 2024-01-27 13:22 | Electrocardiogram Report ---
Test Reason : Blood Pressure : */* mmHG Vent. Rate : 77 BPM Atrial Rate : 77 BPM P-R Int : 176 ms QRS Dur : 70 ms QT Int : 382 ms P-R-T Axes : 46 -2 58 degrees QTcB Int : 432 ms Normal sinus rhythm with sinus arrhythmia Normal ECG When compared with ECG of 15-Dec-2022 21:14, No significant change was found Confirmed by Saurav Mcgovern ([id number]) on 01/27/2024 1:21:55 PM Referred By: Confirmed By: Saurav Mcgovern
--- NOTE | 2024-01-27 14:34 | Gastrointestinal Consultation ---
Date of Consultation January 27, 2024 Assessment & Plan (1) Transaminitis: Suspect secondary to choledocholithiasis. No signs of cholangitis. Will proceed with ERCP in a.m. Please start empiric antibiotics. Continue IV fluids. (2) Choledocholithiasis: Suspect cause for transaminase elevations which can occur early on in the setting prior to elevated alkaline phosphatase and bilirubin. No signs of cholangitis or clinical deterioration. Continue IV fluids in light of azotemia start antibiotics will proceed with ERCP in a.m. History of Present Illness Reason for Consultation: Abnormal liver enzymes and abnormal CT scan Attending Physician: Darcy Huber MD History of Present Illness Patient presents with a 1 day history of worsening abdominal pain. Lab work revealed significant elevation of liver enzymes predominantly transaminases. CT scan of the abdomen was significant for gallbladder stones as well as a cystic duct stone and distal CBD stones. He is afebrile hemodynamically stable. He is hard of hearing and speaks Kazakh it is difficult to get a full history from him. Nursing states his abdominal pain has been better today. Medical history significant for CAD, hypertension, hyperlipidemia, DM2 insulin requiring, CRI (baseline creatinine 1.5), chronic anemia (baseline hemoglobin of 11), dementia, essential tremors, peripheral neuropathy, GERD, macular degeneration, glaucoma. Allergies Allergy/AdvReac Type Severity Reaction Status Date / Time metformin Allergy Unknown UNK Verified 01/26/24 21:21 salicylates Allergy Unknown . Verified 01/26/24 21:21 Home Medications Medication Instructions Recorded Confirmed Type aspirin 81 mg tablet,delayed 81 mg PO QAM 03/07/18 01/26/24 History release brimonidine 0.2 %-timolol 0.5 % 1 drp OPB BID 03/07/18 01/26/24 History eye drops (Combigan) donepezil 10 mg tablet 10 mg PO QPM 03/07/18 01/26/24 History finasteride 5 mg tablet 5 mg PO QAM 03/07/18 01/26/24 History furosemide 40 mg tablet (Lasix) 40 mg PO UD 03/07/18 01/26/24 History gabapentin 300 mg capsule 600 mg PO BID 03/07/18 01/26/24 History (Neurontin) insulin glargine 100 unit/mL (3 30 unit subcut HS 03/07/18 01/26/24 History mL) subcutaneous pen (Lantus Solostar U-100 Insulin) metoprolol tartrate 25 mg tablet 12.5 mg PO BID 03/07/18 01/26/24 History nitroglycerin 0.4 mg sublingual 0.4 mg sublingual DIRECTED PRN 03/07/18 01/26/24 History tablet Chest Pain omeprazole 20 mg capsule,delayed 20 mg PO QAM 03/07/18 01/26/24 History release rosuvastatin 20 mg tablet 20 mg PO QAM 03/07/18 01/26/24 History terazosin 2 mg capsule 2 mg PO HS 03/07/18 01/26/24 History gabapentin 100 mg capsule 200 mg PO HS 03/15/19 01/26/24 History benzonatate 100 mg capsule 100 mg PO TID PRN Cough 01/26/24 01/26/24 History cholecalciferol (vitamin D3) 25 1,000 unit PO Q OTHER DAY 01/26/24 01/26/24 History mcg (1,000 unit) capsule (Vitamin D3) famotidine 20 mg tablet 20 mg PO BID 01/26/24 01/26/24 History guaifenesin 600 mg tablet, 600 mg PO Q12H PRN Congestion 01/26/24 01/26/24 History extended release 12 hr insulin lispro 100 unit/mL See Rx Instructions .Route .COMPLEX 01/26/24 01/26/24 History subcutaneous pen (Humalog KwikPen (U-100) Insulin) sertraline 50 mg tablet 25 mg PO QAM 01/26/24 01/26/24 History Patient History Medical History (Updated 01/27/24 @ 06:35 by Emilia Kulkarni MD) Diabetes Surgical History No pertinent past surgical history Family History Other Family history non-contributory Social History Smoking Status: Never smoker Hx Alcohol Use: No Hx Substance Use: No Preferred Language: Kazakh Communication Ability: Impaired Communication Ability Comment: speaks kenyan, has dementia Application Manager Required: Yes Beliefs That Will Affect Care: None marital status: Single Current Living Situation: Family Current Living Situation Comment: 24hr care current occupational status: retired Feels Safe at Home: Yes Assistive Devices: Glasses and Walker Review of Systems Review of Systems: Review of systems unobtainable due to dementia, hearing loss and language barrier Physical Exam Physical Exam: Eyes; anicteric HENT No masses Chest clear to A Cor S1, S2 physiologic Abd: softer nontender no masses no rebound no guarding Ext no edema Results & Data Vital Signs (Past 12 Hours) Vital Signs Temp Pulse Resp BP Pulse Ox O2 Del Method 01/27/24 07:18 36.7 C 78 16 113/67 95 Room Air PG Care Time/CCT Total # of Minutes Spent Total Time Spent with Patient: Total time spent is greater than 50% in coordination of care (as documented) at patient's floor/unit and/or counseling patient: Coding Level of Care Code 33278 IN/OBS CONSULT LVL 4,60M Diagnoses Transaminitis R74.01 Choledocholithiasis K80.50
[2024-01-27] MEDS: FINASTERIDE 5 MG TAB PO SCH (15:37)
[2024-01-27] MEDS: D5W AND NSS 1,000 ML IV SCH (15:37)
--- NOTE | 2024-01-27 15:37 | Hospitalist Progress Note ---
Date of Service January 27, 2024 Assessment & Plan (1) Choledocholithiasis: Plan: 88-year-old male with PMH of CAD, HTN, HLD, T2DM insulin requiring, CKD [baseline creatinine of 1.5], chronic anemia [baseline hemoglobin of 11], dementia, essential tremors, peripheral neuropathy, GERD, macular degeneration, glaucoma presented to the ED 01/25 with complaint of abdominal pain for 1 day, no shortness of breath or cough or nausea or fever or chills. He is being managed for the following: Abdominal pain secondary to choledocholithiasis Patient presented with abdominal pain of 1 day duration. Admitting CXR with no acute finding. Admitting CTAP with cholelithiasis and choledocholithiasis without ductal dilatation. Concern for cystitis. UA negative for UTI. Admitting gallbladder ultrasound with no evidence of cholecystitis. Ch olelithiasis noted. Admitting LFT elevated. Patient was initially accepted for transfer to [facility] due to need for ERCP. Discussed with GI, able to for ERCP tomorrow. Continue n.p.o., IV fluid, Unasyn added for biliary coverage. Abnormal CTAP, cystitis: UA negative for UTI. Monitor off antibiotic. Acute kidney injury over CKD stage III: Baseline creatinine of 1.5, admitting creatinine 1.87. Continue with IV fluid, creatinine improving. Avoid nephrotoxic's. Other chronic medical conditions: Continue with/resume home meds as and when able. Presumptive CAD as per records on aspirin prophylaxis hypertension, stable hyperlipidemia, on statin Rx DM2 insulin requiring, reasonable control given chronic kidney dysfunction, hemoglobin A1c of 8.27 September 2023 . SSI chronic anemia, hemoglobin at baseline hx dementia/essential tremors/peripheral neuropathy DVT prophylaxis. SCDs re: possible procedure Full code Patient daughter Ms. Isadora Aguiar, contact # [phone]. She was updated over the phone regarding ERCP happening here [email or web address]. Text document was generated using [employer] voice recognition software. It may contain grammatical or spelling errors. Kindly contact undersigned for clarification of any documentation item in question. Admission and Anticipated Discharge Date Admission Date: January 26, 2024 Subjective Patient was seen and examined at bedside. Patient was lying in bed, on room air, sleeping, NAD. Patient denies pain, patient denies fever or cough or sore throat. Per RN, patient is n.p.o., patient has not complained of belly pain, no new acute events. Physical Exam Physical Exam: GENERAL: Demented, comfortable, pleasant, no respiratory distress SKIN: Pallor, warm HEENT: Alopecia, pale palpebral conjunctivae, no ptosis, dry buccal mucosa NECK : Supple, no tenderness CHEST : CTA, no tenderness HEART : RRR, no obvious murmurs ABDOMEN: Some distention, non tender EXTREMITIES : No LE swelling/tenderness, no other conspicuous deformities noted NEUROLOGIC : Demented, no facial asymmetry, rest tremors, no other gross focality Results & Data Results & Data Vital Signs (Past 12 Hours) Vital Signs Temp Pulse Resp BP Pulse Ox O2 Del Method 01/27/24 07:18 36.7 C 78 16 113/67 95 Room Air
[2024-01-27] MEDS: AMPICILLIN/SULBACTAM SOD 3,000 MG/100 ML BAG IV SCH (15:55)
[2024-01-27] MEDS: CARBOHYDRATES FOR HYPOGLYCEMIA PO PRN (16:52)
[2024-01-27] MEDS: DONEPEZIL HCL 10 MG TAB PO SCH (18:06)
[2024-01-27 22:09] LABS: Estimated Average Glucose 177 mg/dl; Hemoglobin A1C 7.8 % (4.5-5.6)
[2024-01-28] MEDS: LACTATED RINGER'S 1,000 ML IV ONE (00:21)
[2024-01-28 08:24] LABS: Partial Thromboplastin Time 26 Seconds (21-31); Prothrombin Time 10.8 Seconds (9.0-12.0)
[2024-01-28 08:38] LABS: BUN Creatinine Ratio 18.1 (10-20); Bilirubin Direct 0.1 mg/dl (0-0.2); Bilirubin,Total 0.6 mg/dl (0.2-1.0); Calcium 8.6 mg/dl (8.6-10.3); Creatinine Clr Calc Pharmacy 30.9 ml/min; Magnesium 1.9 mg/dl (1.7-2.4); Phosphorus 2.7 mg/dl (2.5-4.9); Potassium 4.1 mmol/L (3.5-5.1); Total Protein 6.3 gm/dl (6.0-8.3)
[2024-01-28] MEDS ORDERED: INFLUENZA VACC TS2024-25(65y+)/PF (IIV3) 0.5mL Syr IM ONE (09:05)
--- NOTE | 2024-01-28 09:16 | Gastroenterology Progress Note ---
Date of Service January 28, 2024 Assessment & Plan (1) Transaminitis: Plan: 88 year old CAD as per records, hypertension, hyperlipidemia, DM2 insulin requiring, CRI (baseline creatinine 1.5), chronic anemia (baseline hemoglobin of 11), dementia, essential tremors, peripheral neuropathy, GERD, macular degeneration, glaucoma and others below admitted w/ abdominal pain, elevated transaminases and CT imaging w/ cholelithiasis and choledocholithiasis without ductal dilatation NPO ERCP evaluation today - Discussed risks, benefits, alternatives with pt and family at bedside Appreciate general surgery evaluation for gallstones Continue IV ABX Continue IV fluids We appreciate assistance in the management of any serological abnormality and corrections to include: hemoglobin >7, INR <2, platelets >50,000, potassium levels >3.5 but <5.3, and sodium levels within 5 points of the reference range prior to endoscopic evaluation. Thank you for allowing us to participate in the care of this patient. Please call with any acute changes, questions or concerns. Please see addendum below with additional recommendation from my supervising physician. Admission and Anticipated Discharge Date Admission Date: January 27, 2024 Supervising Physician Co-Signing Physician Notes I saw and examined this patient with our nurse practitioner and agree with her assessment and plan. Hemodynamically stable no signs of cholangitis. LFTs improving but still elevated. Still has abdominal discomfort. PT/INR normal. Will proceed with ERCP and stone extraction today. Subjective Pt was seen and evaluated, chart reviewed. AM labs pending. Afebrile. Denies abd pain, nausea/vomiting today. Review of Systems Review of Systems: All other findings negative except as noted in HPI. Physical Exam Constitutional: WD/WN, vitals as above Respiratory: normal respiratory effort, lungs clear to auscultation Cardiovascular: Rate/Rhythm: regular rate and regular rhythm Gastrointestinal (Abdomen): normal bowel sounds, soft, nontender, no hepatosplenomegaly Skin: no rashes, warm and dry Results & Data Results & Data Vital Signs (Past 12 Hours) Vital Signs Temp Pulse Resp BP BP Pulse Ox O2 Del Method 01/28/24 07:58 36.8 C 71 18 166/59 H 95 Room Air 01/27/24 21:52 Room Air 01/27/24 21:16 66 16 159/69 H 96 Room Air Laboratory Results 01/28/24 01/28/24 01/28/24 Range/Units 07:53 07:52 05:22 WBC Pending RBC Pending Hgb Pending Hct Pending MCV Pending MCH Pending MCHC Pending Plt Count Pending PT 10.8 (9.0-12.0) Seconds INR 1.0 (0.9-1.1) APTT 26 (21-31) Seconds PTT Ratio 1.0 Sodium 142 (136-145) mmol/L Potassium 4.1 (3.5-5.1) mmol/L Chloride 109 H (98-107) mmol/L Carbon Dioxide 27 (21-32) mmol/L Anion Gap 6 (3-11) BUN 29 H (6-23) mg/dl Creatinine 1.60 H (0.6-1.4) mg/dl Est Cr Clr Drug Dosing 30.9 ml/min eGFR 41.19 BUN/Creatinine Ratio 18.1 (10-20) Glucose 113 H (70-99(Fasting)) mg/dl POC Glucose 116 H 105 H (70-99) mg/dl Estimat Average Glucose mg/dl Hemoglobin A1c (4.5-5.6) % Calcium 8.6 (8.6-10.3) mg/dl Phosphorus 2.7 (2.5-4.9) mg/dl Magnesium 1.9 (1.7-2.4) mg/dl Total Bilirubin 0.6 (0.2-1.0) mg/dl Direct Bilirubin 0.1 (0-0.2) mg/dl AST 148 H (13-39) U/L ALT 284 H (7-52) U/L Alkaline Phosphatase 132 H (34-104) U/L Total Protein 6.3 (6.0-8.3) gm/dl Albumin 3.0 L (3.4-5.0) gm/dl 01/27/24 01/27/24 01/27/24 Range/Units 23:24 20:10 17:10 WBC RBC Hgb Hct MCV MCH MCHC Plt Count PT (9.0-12.0) Seconds INR (0.9-1.1) APTT (21-31) Seconds PTT Ratio Sodium (136-145) mmol/L Potassium (3.5-5.1) mmol/L Chloride (98-107) mmol/L Carbon Dioxide (21-32) mmol/L Anion Gap (3-11) BUN (6-23) mg/dl Creatinine (0.6-1.4) mg/dl Est Cr Clr Drug Dosing ml/min eGFR BUN/Creatinine Ratio (10-20) Glucose (70-99(Fasting)) mg/dl POC Glucose 191 H 139 H 93 (70-99) mg/dl Estimat Average Glucose mg/dl Hemoglobin A1c (4.5-5.6) % Calcium (8.6-10.3) mg/dl Phosphorus (2.5-4.9) mg/dl Magnesium (1.7-2.4) mg/dl Total Bilirubin (0.2-1.0) mg/dl Direct Bilirubin (0-0.2) mg/dl AST (13-39) U/L ALT (7-52) U/L Alkaline Phosphatase (34-104) U/L Total Protein (6.0-8.3) gm/dl Albumin (3.4-5.0) gm/dl 01/27/24 01/27/24 01/27/24 Range/Units 16:44 16:42 11:52 WBC RBC Hgb Hct MCV MCH MCHC Plt Count PT (9.0-12.0) Seconds INR (0.9-1.1) APTT (21-31) Seconds PTT Ratio Sodium (136-145) mmol/L Potassium (3.5-5.1) mmol/L Chloride (98-107) mmol/L Carbon Dioxide (21-32) mmol/L Anion Gap (3-11) BUN (6-23) mg/dl Creatinine (0.6-1.4) mg/dl Est Cr Clr Drug Dosing ml/min eGFR BUN/Creatinine Ratio (10-20) Glucose (70-99(Fasting)) mg/dl POC Glucose 68 L* 67 L* 80 (70-99) mg/dl Estimat Average Glucose mg/dl Hemoglobin A1c (4.5-5.6) % Calcium (8.6-10.3) mg/dl Phosphorus (2.5-4.9) mg/dl Magnesium (1.7-2.4) mg/dl Total Bilirubin (0.2-1.0) mg/dl Direct Bilirubin (0-0.2) mg/dl AST (13-39) U/L ALT (7-52) U/L Alkaline Phosphatase (34-104) U/L Total Protein (6.0-8.3) gm/dl Albumin (3.4-5.0) gm/dl 01/27/24 Range/Units 06:41 WBC RBC Hgb Hct MCV MCH MCHC Plt Count PT (9.0-12.0) Seconds INR (0.9-1.1) APTT (21-31) Seconds PTT Ratio Sodium (136-145) mmol/L Potassium (3.5-5.1) mmol/L Chloride (98-107) mmol/L Carbon Dioxide (21-32) mmol/L Anion Gap (3-11) BUN (6-23) mg/dl Creatinine (0.6-1.4) mg/dl Est Cr Clr Drug Dosing ml/min eGFR BUN/Creatinine Ratio (10-20) Glucose (70-99(Fasting)) mg/dl POC Glucose (70-99) mg/dl Estimat Average Glucose 177 mg/dl Hemoglobin A1c 7.8 H (4.5-5.6) % Calcium (8.6-10.3) mg/dl Phosphorus (2.5-4.9) mg/dl Magnesium (1.7-2.4) mg/dl Total Bilirubin (0.2-1.0) mg/dl Direct Bilirubin (0-0.2) mg/dl AST (13-39) U/L ALT (7-52) U/L Alkaline Phosphatase (34-104) U/L Total Protein (6.0-8.3) gm/dl Albumin (3.4-5.0) gm/dl PG Care Time/CCT Total # of Minutes Spent Total Time Spent with Patient: Total time spent is greater than 50% in coordination of care (as documented) at patient's floor/unit and/or counseling patient: Coding Level of Care Code None Diagnoses Transaminitis R74.01
[2024-01-28] MEDS: LANTUS PER UNIT CHARGE SQ SCH (09:19)
[2024-01-28 09:33] LABS: Hematocrit (blood only) 34.5 % (42.0-52.0); Hemoglobin 10.7 g/dl (14.0-18.0); Mean Corpuscular Hemoglobin 28.8 pg (25.0-34.0); Mean Corpuscular Volume 92.7 fL (80.0-100.0); Platelet Count 151 K/uL (130-400); RDW Coefficient of Variation 15.4 % (11.5-14.5); RDW Standard Deviation 52.1 fL (36.4-46.3); Red Blood Count 3.72 M/uL (4.70-6.10); White Blood Count 6.39 K/ul (4.8-10.8)
--- NOTE | 2024-01-28 12:06 | Anesthesiology Consultation ---
Date of Service January 28, 2024 Assessment & Plan Chart Review Chart Review: Acceptable Risk for Surgery and Patient NOT seen in Pre Admission Testing Consults Requested none History Surgery Operation Date: 01/28/24 18:10 Proposed Procedures p Endoscopic Retrograde Cholangiopancreatogram - Garrett Garcia MD Height/Weight Height: 5 ft 8 in Weight: 73 kg Allergies Allergy/AdvReac Type Severity Reaction Status Date / Time metformin Allergy Unknown UNK Verified 01/26/24 21:21 salicylates Allergy Unknown . Verified 01/26/24 21:21 Medications Home Medications Medication Instructions Recorded Confirmed Last Taken aspirin 81 mg tablet,delayed 81 mg PO QAM 03/07/18 01/26/24 01/26/24 release brimonidine 0.2 %-timolol 0.5 % 1 drp OPB BID 03/07/18 01/26/24 01/26/24 eye drops (Combigan) AM donepezil 10 mg tablet 10 mg PO QPM 03/07/18 01/26/24 01/25/24 finasteride 5 mg tablet 5 mg PO QAM 03/07/18 01/26/24 01/26/24 furosemide 40 mg tablet (Lasix) 40 mg PO UD 03/07/18 01/26/24 01/24/24 gabapentin 300 mg capsule 600 mg PO BID 03/07/18 01/26/24 01/26/24 (Neurontin) AM insulin glargine 100 unit/mL (3 30 unit subcut HS 03/07/18 01/26/24 01/25/24 mL) subcutaneous pen (Lantus Solostar U-100 Insulin) metoprolol tartrate 25 mg tablet 12.5 mg PO BID 03/07/18 01/26/24 01/26/24 AM DOSE nitroglycerin 0.4 mg sublingual 0.4 mg sublingual DIRECTED PRN 03/07/18 01/26/24 04/26/19 tablet Chest Pain omeprazole 20 mg capsule,delayed 20 mg PO QAM 03/07/18 01/26/24 01/26/24 release rosuvastatin 20 mg tablet 20 mg PO QAM 03/07/18 01/26/24 01/26/24 terazosin 2 mg capsule 2 mg PO HS 03/07/18 01/26/24 01/25/24 gabapentin 100 mg capsule 200 mg PO HS 03/15/19 01/26/24 01/25/24 benzonatate 100 mg capsule 100 mg PO TID PRN Cough 01/26/24 01/26/24 Unknown cholecalciferol (vitamin D3) 25 1,000 unit PO Q OTHER DAY 01/26/24 01/26/24 01/26/24 mcg (1,000 unit) capsule (Vitamin D3) famotidine 20 mg tablet 20 mg PO BID 01/26/24 01/26/24 01/26/24 AM guaifenesin 600 mg tablet, 600 mg PO Q12H PRN Congestion 01/26/24 01/26/24 Unknown extended release 12 hr insulin lispro 100 unit/mL See Rx Instructions .Route .COMPLEX 01/26/24 01/26/24 Unknown subcutaneous pen (Humalog KwikPen (U-100) Insulin) sertraline 50 mg tablet 25 mg PO QAM 01/26/24 01/26/24 01/26/24 Active Medications Generic Name Dose Route Start Last Admin Trade Name Freq PRN Reason Stop Dose Admin Acetaminophen 500 mg 01/26/24 20:55 01/27/24 09:25 Acetaminophen 500 Mg Tab PO 02/25/24 20:54 500 mg Q6H PRN Administration fever/pain Donepezil HCl 10 mg 01/27/24 16:30 01/27/24 18:06 Donepezil Hcl 10 Mg Tab PO 02/26/24 16:29 Not Given QDD NAHUN Famotidine 20 mg 01/26/24 21:45 01/28/24 09:24 Famotidine 20 Mg Tab PO 02/25/24 21:44 20 mg BID NAHUN Administration Finasteride 5 mg 01/27/24 09:00 01/28/24 09:24 Finasteride 5 Mg Tab PO 02/26/24 08:59 5 mg QAM NAHUN Administration Gabapentin 200 mg 01/27/24 09:00 01/28/24 09:22 Gabapentin 100 Mg Cap PO 02/26/24 08:59 200 mg TID NAHUN Administration Dextrose/Sodium Chloride 1,000 mls @ 80 mls/hr 01/27/24 14:15 01/27/24 23:39 D5w And Nss IV 0 mls/hr .[id number] NAHUN Infusion Ampicillin Sodium/Sulbactam Sodium 3,000 mg in 100 mls @ 200 mls/hr 01/27/24 14:45 01/28/24 04:03 Unasyn IV 02/06/24 14:44 Infused Q12H NAHUN Infusion Lactated Ringer's 1,000 mls @ 75 mls/hr 01/27/24 23:33 01/28/24 00:21 Lr IV 01/28/24 12:52 75 mls/hr .[id number] ONE Administration Insulin Aspart 0 units 01/26/24 22:16 01/28/24 05:26 Insulin Aspart Per Unit Charge SC 02/25/24 22:15 Not Given Q6 NAHUN Insulin Glargine 5 units 01/28/24 09:00 01/28/24 09:19 Lantus Per Unit Charge SQ 02/27/24 08:59 Not Given DAILY NAHUN Metoprolol Tartrate 12.5 mg 01/26/24 21:45 01/28/24 09:23 Metoprolol Tartrate 25 Mg Tab PO 02/25/24 21:44 12.5 mg BID NAHUN Administration Miscellaneous 1 each 01/27/24 08:00 01/28/24 09:19 Order Awaiting Action: Non-Formulary Medication (Brimonidine-Timolol [Combigan] 0.2-0.5 % N/A 02/26/24 07:59 Not Given QS NAHUN Miscellaneous 15 - 30 gm 01/26/24 21:45 01/27/24 16:52 Carbohydrates For Hypoglycemia PO 02/25/24 21:44 15 gm UD PRN Administration Hypoglycemia Treatment Pantoprazole Sodium 40 mg 01/27/24 09:00 01/28/24 09:22 Pantoprazole 40 Mg Tab PO 02/26/24 08:59 40 mg QAM NAHUN Administration Senna/Docusate Sodium 1 tab 01/26/24 23:30 01/28/24 09:22 Docusate Sodium/Senna 50/8.6mg Tab PO 02/25/24 23:29 1 tab QAM NAHUN Administration Sertraline HCl 25 mg 01/27/24 09:00 01/28/24 09:22 Sertraline Hcl 50 Mg Tablet PO 02/26/24 08:59 25 mg QAM NAHUN Administration Terazosin HCl 2 mg 01/26/24 21:35 01/27/24 21:51 Terazosin Hcl 1 Mg Cap PO 02/25/24 21:34 2 mg HS NAHUN Administration Past Medical History Medical History (Updated 01/27/24 @ 06:35 by Emilia Kulkarni MD) Diabetes Past Family History Family History Other Family history non-contributory Past Surgical History Surgical History No pertinent past surgical history Social History Smoking Status: Never smoker Hx Alcohol Use: No Hx Substance Use: No Physical Exam Vital Signs Last Vital Signs Temp 36.8 C 01/28/24 07:58 Pulse 71 01/28/24 07:58 Resp 18 01/28/24 07:58 BP 166/59 H 01/28/24 07:58 Pulse Ox 95 01/28/24 07:58 O2 Del Method Room Air 01/28/24 07:58 O2 Flow Rate 0 01/26/24 10:45 Testing Laboratory Results 01/28/24 07:52 01/28/24 07:52 PT 10.8 Seconds (9.0-12.0) 01/28/24 07:52 INR 1.0 (0.9-1.1) 01/28/24 07:52 APTT 26 Seconds (21-31) 01/28/24 07:52 Hemoglobin A1c 7.8 % (4.5-5.6) H 01/27/24 06:41 01/28/24 01/28/24 01/28/24 12:04 07:53 05:22 POC Glucose 121 H 116 H 105 H
[2024-01-28] MEDS ORDERED: ROCURONIUM BROMIDE 10 MG/ML 5 ML VIAL IV ONE (12:36)
[2024-01-28] MEDS ORDERED: PROPOFOL IV EMULSION 10 MG/ML 20 ML VIAL IV ONE ×2 (12:36→13:18)
[2024-01-28] MEDS ORDERED: ONDANSETRON INJ 2 MG/ML 2 ML VIAL ONE (13:18)
[2024-01-28] MEDS ORDERED: LIDOCAINE 2% 2 ML VIAL/AMP(20MG/ML) INFIL ONE (13:18)
[2024-01-28] MEDS ORDERED: fentaNYL citrate PF 100 MCG/2 ML VIAL ONE (13:19)
[2024-01-28] MEDS ORDERED: fentaNYL citrate PF 100 MCG/2 ML VIAL IV PRN (13:43)
[2024-01-28] MEDS ORDERED: ONDANSETRON INJ 2 MG/ML 2 ML VIAL IV PRN (13:43)
[2024-01-28] MEDS ORDERED: ePHEDrine sulfate 50 MG/ML AMP IV PRN (13:43)
[2024-01-28] MEDS ORDERED: ATROPINE SULFATE 0.1 MG/ML 10ML SYR IV PRN (13:43)
[2024-01-28] MEDS ORDERED: SUGAMMADEX SODIUM 200 MG/2 ML VIAL IV ONE (14:27)
--- NOTE | 2024-01-28 14:53 | GI REPORT ---
[facility] Patient: JENNIFER GROVE : 1935 Sex at : Male Age: 88 Years Procedure: ERCP Date: 01/28/2024 Attending Physician: Garrett Garcia MD Referring MD: Darcy Huber Md Indications: - Bile duct stone(s) Medications: - General Anesthesia Complications: - No immediate complications., No immediate complications. Estimated blood loss: Minimal. Estimated Blood Loss: - Estimated blood loss was minimal. Procedure: - Prior to the procedure, a History and Physical was performed, and patient medications, allergies and sensitivities were reviewed. The patient's tolerance of previous anesthesia was reviewed. - Patient identification and proposed procedure were verified prior to the procedure by the physician. The procedure was verified in the procedure room. - The risks and benefits of the procedure and the sedation options and risks were discussed with the patient. All questions were answered and informed consent was obtained. - Prophylactic Antibiotics: The patient requires prophylactic antibiotics as clinically indicated based on published guidelines for the planned ERCP. The patient received antibiotic therapy before the procedure. - The ercp scope was introduced through the mouth and advanced to the duodenum and used to inject contrast into the bile duct. - The ERCP was accomplished without difficulty. - The patient tolerated the procedure well. Findings: - The pbx installer film was normal. - The bile duct was deeply cannulated. Contrast was injected. I personally interpreted the bile duct images. Image quality was excellent. The common bile duct and common hepatic duct contained filling defect(s). Possible small stones or air bubbles. The biliary tree was otherwise normal. - The biliary tree was swept with an 8.5-9 mm balloon. No stones or sludge extracted. - Final balloon occlusion of the bile duct performed. The balloon was inflated to 9 mm in size. Contrast was then injected into the biliary tree and opacified the entire biliary tree. There were no residual defects noted. - Cannulation of the pancreatic duct was not attempted during this procedure. Impression: - Filling defects were seen on the cholangiogram. Possible small stones or air bubbles. Sphincterotomy and bile duct swept with balloon. No residual defects seen after final balloon cholangiogram. Recommendation: - Return patient to [facility] for ongoing care. - Continue antibiotic coverage for the next 24 to 48 hours - Start clear liquid diet advance as tolerated Procedure Code(s): - 51356, Endoscopic retrograde cholangiopancreatography (ERCP); diagnostic, including collection of specimen(s) by brushing or washing, when performed (separate procedure) - 18147, Endoscopic catheterization of the biliary ductal system, radiological supervision and interpretation Diagnosis Code(s): - K80.50, Calculus of bile duct without cholangitis or cholecystitis without obstruction - R93.2, Abnormal findings on diagnostic imaging of liver and biliary tract CPT(R) - 2022 copyright [employer]. All Rights Reserved. The CPT codes, CCI edits and ICD codes generated are intended as suggestions and were generated based on input data. These codes are preliminary and upon sizer machine review may be revised to meet current compliance and payer requirements. The provider is responsible for the final determination of appropriate codes, and modifiers. Garrett Garcia MD This document has been electronically signed. Note Initiated:01/28/2024 Note Completed:01/28/2024 2:52 PM \\[id number]
--- NOTE | 2024-01-28 15:06 | Anesthesiology Progress Note ---
Date of Service January 28, 2024 Anesthesia Post Procedure Vital Signs Vital Signs: Temp Pulse Resp BP BP Pulse Ox O2 Del Method 01/28/24 13:35 36.8 C 67 20 105/85 94 Room Air 01/28/24 07:58 36.8 C 71 18 166/59 H 95 Room Air 01/27/24 21:52 Room Air 01/27/24 21:16 66 16 159/69 H 96 Room Air 01/27/24 16:03 36.6 C 63 16 109/65 94 Room Air Pain Intensity Chest: Pain Intensity: 5 Transfer of Care Handoff Completed per policy Notes Mental Status: alert / awake / arousable Patient Amnestic to Procedure: Yes Nausea / Vomiting: adequately controlled Pain: adequately controlled Airway Patency, RR, SpO2: stable & adequate BP & HR: stable & adequate Hydration State: stable & adequate Anesthetic Complications: no major complications apparent and Pt Satisfied with anesthetic care
--- NOTE | 2024-01-28 15:32 | Fluoroscopy Report ---
[place] ERCP biliary ductal CLINICAL HISTORY: for ERCPacute right upper quadrant abdominal pain with cholelithiasis COMPARISON STUDY: CT January 26, 2024 FLUOROSCOPY TIME: 6 minutes and 5.2 seconds FLUOROSCOPY IMAGES: 7 EXPOSURE DOSE: 57.517 mGy FINDINGS: Endoscope noted within the duodenum. Retrograde cannulation of the common bile duct with in jection of contrast. Subsequent images demonstrate balloon sweep of the common bile duct. No biliary strictures or significant biliary dilation. Contrast is also noted within the duodenum and distal sto mach. IMPRESSION: Fluoroscopic assistance as above. ACT 112: Negative or not required by law. Electronically signed by: Luis Mazariegos M.D. 01/28/2024 3:30 PM
--- NOTE | 2024-01-28 16:24 | Hospitalist Progress Note ---
Date of Service January 28, 2024 Assessment & Plan (1) Choledocholithiasis: Plan: 88-year-old male with PMH of CAD, HTN, HLD, T2DM insulin requiring, CKD [baseline creatinine of 1.5], chronic anemia [baseline hemoglobin of 11], dementia, essential tremors, peripheral neuropathy, GERD, macular degeneration, glaucoma presented to the ED 01/25 with complaint of abdominal pain for 1 day, no shortness of breath or cough or nausea or fever or chills. He is being managed for the following: Abdominal pain secondary to choledocholithiasis Patient presented with abdominal pain of 1 day duration. Admitting CXR with no acute finding. Admitting CTAP with cholelithiasis and choledocholithiasis without ductal dilatation. Concern for cystitis. UA negative for UTI. Admitting gallbladder ultrasound with no evidence of cholecystitis. Ch olelithiasis noted. Admitting LFT elevated. Status post ERCP 01/28/2024: Filling defect noted on cholangiogram, sphincterotomy and bile duct swept with balloon. GI on board, continue with antibiotic coverage for next 2 days, start clear liquid diet. Clears, c/w iv atb. Abnormal CTAP, cystitis: UA negative for UTI. Acute kidney injury over CKD stage III: Baseline creatinine of 1.5, admitting creatinine 1.87. Continue with IV fluid, creatinine improving. Avoid nephrotoxic's. Other chronic medical conditions: Continue with/resume home meds as and when able. Presumptive CAD as per records on aspirin prophylaxis hypertension, stable hyperlipidemia, on statin Rx DM2 insulin requiring, reasonable control given chronic kidney dysfunction, hemoglobin A1c of 8.27 September 2023 . SSI chronic anemia, hemoglobin at baseline hx dementia/essential tremors/peripheral neuropathy DVT prophylaxis. SCDs re: possible procedure Full code pt/ot cm to assist w/ dc plan. Patient daughter Ms. Isadora Aguiar, contact # [phone]. She was updated over the phone regarding ERCP happening here chucky. Text document was generated using [employer] voice recognition software. It may contain grammatical or spelling errors. Kindly contact undersigned for clarification of any documentation item in question. Admission and Anticipated Discharge Date Admission Date: January 27, 2024 Subjective Patient was seen and examined at bedside. Patient was lying in bed, on room air, sleeping, NAD. Patient denies pain, patient denies fever or cough or sore throat. Patient is n.p.o., patient has not complained of belly pain, no new acute events. for ercp today. Physical Exam Physical Exam: GENERAL: Demented, comfortable, pleasant, no respiratory distress SKIN: Pallor, warm HEENT: Alopecia, pale palpebral conjunctivae, no ptosis, dry buccal mucosa NECK : Supple, no tenderness CHEST : CTA, no tenderness HEART : RRR, no obvious murmurs ABDOMEN: Some distention, non tender EXTREMITIES : No LE swelling/tenderness, no other conspicuous deformities noted NEUROLOGIC : Demented, no facial asymmetry, rest tremors, no other gross focality Results & Data Results & Data Vital Signs (Past 12 Hours) Vital Signs Temp Pulse Pulse Resp BP Pulse Ox O2 Del Method 01/28/24 16:13 36.5 C 66 16 132/67 96 Room Air 01/28/24 15:43 36.8 C 64 16 151/70 H 93 Room Air 01/28/24 15:25 36.8 C 66 17 150/65 H 94 Room Air 01/28/24 15:15 66 16 153/68 H 95 Room Air 01/28/24 15:05 67 15 157/69 H 100 Room Air 01/28/24 14:55 68 18 145/63 H 100 Oxymask 01/28/24 14:46 36 C L 69 19 134/60 100 Oxymask 01/28/24 13:35 36.8 C 67 20 105/85 94 Room Air 01/28/24 07:58 36.8 C 71 18 166/59 H 95 Room Air O2 Flow Rate 01/28/24 16:13 01/28/24 15:43 01/28/24 15:25 01/28/24 15:15 01/28/24 15:05 01/28/24 14:55 5 01/28/24 14:46 5 01/28/24 13:35 01/28/24 07:58
[2024-01-28] MEDS ORDERED: Nursing to Pharmacy Communication SCH (16:45)
[2024-01-28] MEDS: INSULIN ASPART PER UNIT CHARGE SC SCH (17:57)
--- NOTE | 2024-01-29 08:55 | Gastroenterology Progress Note ---
Date of Service January 29, 2024 Assessment & Plan (1) Transaminitis: Plan: 88 year old CAD as per records, hypertension, hyperlipidemia, DM2 insulin requiring, CRI (baseline creatinine 1.5), chronic anemia (baseline hemoglobin of 11), dementia, essential tremors, peripheral neuropathy, GERD, macular degeneration, glaucoma and others below admitted w/ abdominal pain, elevated transaminases and CT imaging w/ cholelithiasis and choledocholithiasis without ductal dilatation. S/P ERCP w/ filling defects on cholangiogram s/p sphincterotomy following by sweeping of the bile duct w/o any residual defects seen after on repeat cholangiogram, feeling improved and tolerating liquid breakfast Will review LFTs when return No GI contraindications to diet as tolerated Antibiotic coverage for the next 24 hours Appreciate general surgery evaluation for gallstones Continue IV ABX Continue IV fluids Recall GI as needed I spent a total of 40 minutes on the date of service in review of patient's record, and previously obtained information in person and appropriate medical visit, discussion and education of plan, with patient and/or caregiver, placing orders for tests/referral/procedures as medically necessary and documentation of pertinent clinical information in patient's medical records for their visit today. Thank you for allowing us to participate in the care of this patient. Please call with any acute changes, questions or concerns. Please see addendum below with additional recommendation from my supervising physician. Admission and Anticipated Discharge Date Admission Date: January 27, 2024 Supervising Physician Co-Signing Physician Notes I saw and examined this patient with our nurse practitioner and agree with her assessment and plan. More comfortable today less abdominal pain. No fever. Status post ERCP with sphincterotomy tolerated well. Possible cholecystectomy tomorrow. Subjective Pt was seen and evaluated, chart reviewed. Student nurse at bedside assisting with his breakfast. Denies abd pain, nausea/vomiting. ERCP 2023: - Filling defects were seen on the cholangiogram. Possible small stones or air bubbles. Sphincterotomy and bile duct swept with balloon. No residual defects seen after final balloon cholangiogram. Review of Systems Review of Systems: All other findings negative except as noted in HPI. Physical Exam Constitutional: WD/WN, vitals as above Respiratory: normal respiratory effort Cardiovascular: Rate/Rhythm: regular rate Gastrointestinal (Abdomen): normal bowel sounds, soft, nontender, no hepatosplenomegaly Skin: no rashes, warm and dry Results & Data Results & Data Vital Signs (Past 12 Hours) Vital Signs Temp Pulse Resp BP BP Pulse Ox O2 Del Method 01/29/24 07:40 36.2 C L 65 18 185/79 H 97 Room Air 01/28/24 23:56 36.3 C L 64 18 115/59 L 97 Room Air PG Care Time/CCT Total # of Minutes Spent Total Time Spent with Patient: Total time spent is greater than 50% in coordination of care (as documented) at patient's floor/unit and/or counseling patient: Coding Level of Care Code 71471 SUB INP/OBS CARE 3/50MIN Diagnoses Transaminitis R74.01
[2024-01-29 09:15] LABS: Hematocrit (blood only) 31.7 % (42.0-52.0); Mean Corpuscular Hemoglobin 29.3 pg (25.0-34.0); Mean Corpuscular Hgb Conc 31.5 g/dL (32.0-36.0); Mean Platelet Volume 10.9 fL (9.4-12.4); Platelet Count 149 K/uL (130-400); RDW Coefficient of Variation 15.3 % (11.5-14.5); Red Blood Count 3.41 M/uL (4.70-6.10); White Blood Count 6.57 K/ul (4.8-10.8)
[2024-01-29 09:54] LABS: Albumin Level 2.9 gm/dl (3.4-5.0); BUN Creatinine Ratio 16.6 (10-20); Bilirubin Direct 0.2 mg/dl (0-0.2); Bilirubin,Total 0.7 mg/dl (0.2-1.0); Calcium 8.4 mg/dl (8.6-10.3); Creatinine Clr Calc Pharmacy 30.3 ml/min; Magnesium 1.8 mg/dl (1.7-2.4); Phosphorus 2.6 mg/dl (2.5-4.9); Potassium 4.1 mmol/L (3.5-5.1)
[2024-01-29] MEDS ORDERED: PHARMACY GLYCEMIC MGMT CONSULT PRN (11:31)
[2024-01-29] MEDS: LANTUS PER UNIT CHARGE SQ ONE (11:59)
[2024-01-29] MEDS ORDERED: LANTUS PER UNIT CHARGE SQ ONE (12:15)
--- NOTE | 2024-01-29 12:36 | Anesthesiology Consultation ---
Date of Service January 29, 2024 Assessment & Plan Chart Review Chart Review: Acceptable Risk for Surgery and Patient NOT seen in Pre Admission Testing History Surgery Operation Date: 01/28/24 18:10 Proposed Procedures p Endoscopic Retrograde Cholangiopancreatogram - Garrett Garcia MD Operation Date: 01/30/24 10:20 Proposed Procedures p Laparoscopic Cholecystectomy - Adalberto Stokes DO Height/Weight Height: 5 ft 8 in Weight: 73 kg Allergies Allergy/AdvReac Type Severity Reaction Status Date / Time metformin Allergy Unknown UNK Verified 01/26/24 21:21 salicylates Allergy Unknown . Verified 01/26/24 21:21 Medications Home Medications Medication Instructions Recorded Confirmed Last Taken aspirin 81 mg tablet,delayed 81 mg PO QAM 03/07/18 01/26/24 01/26/24 release brimonidine 0.2 %-timolol 0.5 % 1 drp OPB BID 03/07/18 01/26/24 01/26/24 eye drops (Combigan) AM donepezil 10 mg tablet 10 mg PO QPM 03/07/18 01/26/24 01/25/24 finasteride 5 mg tablet 5 mg PO QAM 03/07/18 01/26/24 01/26/24 furosemide 40 mg tablet (Lasix) 40 mg PO UD 03/07/18 01/26/24 01/24/24 gabapentin 300 mg capsule 600 mg PO BID 03/07/18 01/26/24 01/26/24 (Neurontin) AM insulin glargine 100 unit/mL (3 30 unit subcut HS 03/07/18 01/26/24 01/25/24 mL) subcutaneous pen (Lantus Solostar U-100 Insulin) metoprolol tartrate 25 mg tablet 12.5 mg PO BID 03/07/18 01/26/24 01/26/24 AM DOSE nitroglycerin 0.4 mg sublingual 0.4 mg sublingual DIRECTED PRN 03/07/18 01/26/24 04/26/19 tablet Chest Pain omeprazole 20 mg capsule,delayed 20 mg PO QAM 03/07/18 01/26/24 01/26/24 release rosuvastatin 20 mg tablet 20 mg PO QAM 03/07/18 01/26/24 01/26/24 terazosin 2 mg capsule 2 mg PO HS 03/07/18 01/26/24 01/25/24 gabapentin 100 mg capsule 200 mg PO HS 03/15/19 01/26/24 01/25/24 benzonatate 100 mg capsule 100 mg PO TID PRN Cough 01/26/24 01/26/24 Unknown cholecalciferol (vitamin D3) 25 1,000 unit PO Q OTHER DAY 01/26/24 01/26/24 01/26/24 mcg (1,000 unit) capsule (Vitamin D3) famotidine 20 mg tablet 20 mg PO BID 01/26/24 01/26/24 01/26/24 AM guaifenesin 600 mg tablet, 600 mg PO Q12H PRN Congestion 01/26/24 01/26/24 Unknown extended release 12 hr insulin lispro 100 unit/mL See Rx Instructions .Route .COMPLEX 01/26/24 01/26/24 Unknown subcutaneous pen (Humalog KwikPen (U-100) Insulin) sertraline 50 mg tablet 25 mg PO QAM 01/26/24 01/26/24 01/26/24 Active Medications Generic Name Dose Route Start Last Admin Trade Name Freq PRN Reason Stop Dose Admin Acetaminophen 500 mg 01/26/24 20:55 01/27/24 09:25 Acetaminophen 500 Mg Tab PO 02/25/24 20:54 500 mg Q6H PRN Administration fever/pain Donepezil HCl 10 mg 01/27/24 16:30 01/28/24 17:57 Donepezil Hcl 10 Mg Tab PO 02/26/24 16:29 10 mg QDD NAHUN Administration Famotidine 20 mg 01/26/24 21:45 01/29/24 09:29 Famotidine 20 Mg Tab PO 02/25/24 21:44 20 mg BID NAHUN Administration Finasteride 5 mg 01/27/24 09:00 01/29/24 09:27 Finasteride 5 Mg Tab PO 02/26/24 08:59 5 mg QAM NAHUN Administration Gabapentin 200 mg 01/27/24 09:00 01/29/24 09:28 Gabapentin 100 Mg Cap PO 02/26/24 08:59 200 mg TID NAHUN Administration Ampicillin Sodium/Sulbactam Sodium 3,000 mg in 100 mls @ 200 mls/hr 01/27/24 14:45 01/29/24 02:33 Unasyn IV 02/06/24 14:44 Infused Q12H NAHUN Infusion Insulin Aspart 0 units 01/28/24 16:55 01/29/24 09:26 Insulin Aspart Per Unit Charge SC 02/25/24 22:15 6 units ACHS NAHUN Administration Metoprolol Tartrate 12.5 mg 01/26/24 21:45 01/29/24 09:28 Metoprolol Tartrate 25 Mg Tab PO 02/25/24 21:44 12.5 mg BID NAHUN Administration Miscellaneous 1 each 01/27/24 08:00 01/29/24 09:22 Order Awaiting Action: Non-Formulary Medication (Brimonidine-Timolol [Combigan] 0.2-0.5 % N/A 02/26/24 07:59 Not Given QS NAHUN Miscellaneous 15 - 30 gm 01/26/24 21:45 01/27/24 16:52 Carbohydrates For Hypoglycemia PO 02/25/24 21:44 15 gm UD PRN Administration Hypoglycemia Treatment Pantoprazole Sodium 40 mg 01/27/24 09:00 01/29/24 09:27 Pantoprazole 40 Mg Tab PO 02/26/24 08:59 40 mg QAM NAHUN Administration Senna/Docusate Sodium 1 tab 01/26/24 23:30 01/29/24 09:27 Docusate Sodium/Senna 50/8.6mg Tab PO 02/25/24 23:29 1 tab QAM NAHUN Administration Sertraline HCl 25 mg 01/27/24 09:00 01/29/24 09:29 Sertraline Hcl 50 Mg Tablet PO 02/26/24 08:59 25 mg QAM NAHUN Administration Terazosin HCl 2 mg 01/26/24 21:35 01/28/24 20:44 Terazosin Hcl 1 Mg Cap PO 02/25/24 21:34 2 mg HS NAHUN Administration NPO Date Last Intake of Fluids: 01/27/24 Time Last Intake of Fluids: 22:00 Date Last Intake of Solids: 01/27/24 Time Last Intake of Solids: 22:00 Past Medical History Medical History (Updated 01/27/24 @ 06:35 by Emilia Kulkarni MD) Diabetes Past Family History Family History Other Family history non-contributory Past Surgical History Surgical History No pertinent past surgical history Social History Smoking Status: Never smoker Hx Alcohol Use: No Hx Substance Use: No Physical Exam Vital Signs Last Vital Signs Temp 36.2 C L 01/29/24 07:40 Pulse 65 01/29/24 07:40 Resp 18 01/29/24 07:40 BP 185/79 H 01/29/24 07:40 Pulse Ox 97 01/29/24 07:40 O2 Del Method Room Air 01/29/24 07:40 O2 Flow Rate 5 01/28/24 14:55 Testing Laboratory Results 01/29/24 08:48 01/29/24 08:48 PT 10.8 Seconds (9.0-12.0) 01/28/24 07:52 INR 1.0 (0.9-1.1) 01/28/24 07:52 APTT 26 Seconds (21-31) 01/28/24 07:52 Hemoglobin A1c 7.8 % (4.5-5.6) H 01/27/24 06:41 01/29/24 01/29/24 01/29/24 11:14 11:11 07:36 POC Glucose 358 H* 358 H* 283 H
--- NOTE | 2024-01-29 12:46 | Pharmacy Report ---
Pharmacy Glycemic Short Note 2 - Date of Service January 29, 2024 - Glycemic Short BSG Results (Last 24 hours): 01/28/24 01/28/24 01/28/24 14:49 16:44 20:52 Glucose POC Glucose 119 H 132 H 219 H 01/29/24 01/29/24 01/29/24 07:36 08:48 11:11 Glucose 331 H* POC Glucose 283 H 358 H* 01/29/24 11:14 Glucose POC Glucose 358 H* OUTPATIENT ANTIDIABETIC REGIMEN: * Lantus 30 units SQ q HS * Humalog--12 units at breakfast, 10 units at lunch, 13 units at supper HbA1c 7.8% on 01/27/24 ASSESSMENT: * 88 year old male admitted 01/25 with abdominal pain secondary to choledocholithiasis. PMH of CKD (SCr 1.63 today) and T2DM. Pharmacy was consulted for glycemic management. * Patient usually receives a total of 65 units of insulin daily as an outpatient. 5 units of insulin were give yesterday (all were bolus) * Fasting BSG today was 283mg/dl and mino to 358mg/dl with lunch today. 5 units of Lantus were already given this morning so an additional 25 units were ordered for this afternoon (10units x 1 then 15 units x 1). Goal is to transition him back to home dose of lantus HS. * Bolus insulin parameters were tightened starting with lunch today. PLAN FOR INPATIENT GLYCEMIC CONTROL: * Hold outpatient diabetes medications * Basal insulin * Lantus 30 units SQ total today (5 units this morning then 25units this afternoon). Will reassess further dosing based on BSG readings * Bolus insulin * NovoLog per scale ACHS or Q6hrs while NPO * Goal Range: Low 110 mg/dL - High 140 mg/dL * Correction Factor: 20 mg/dL/unit * Nutritional / Prandial insulin per carb ratio of 1 unit per 8 grams CHO consumed
--- NOTE | 2024-01-29 12:57 | Surgery Consultation ---
Date of Consultation January 29, 2024 Assessment & Plan (1) Choledocholithiasis: This is an 88yM with a PMH of dementia, T2DM, CKD who presents to the [facility] ED on 01/26/24 with complaints of abdominal pain that started that saturday. Of note majority of history obtained from chart review and speaking with the patient's primary contact (daughter-allegra) on the phone. He has baseline dementia and although may speak some limited hong konger was unable to provide me with a meaningful history. Apparently he developed abdominal pain and feeling cold last Saturday and per family he never complains of much. Because of his symptoms he came to the ER. He underwent a CT a/p that showed cholelithiasis and choledocholithiasis without ductal dilatation. Follow up with a RUQ US showed cholelithiasis, without evidence of acute cholecystitis. The common bile duct is not distinctly defined due to respiratory and bowel gas artifact. He was noted to have elevated LFTs on admission and with concern for choledocholithiasis on imaging our GI team took patient for an ERCP on 01/27. The ERCP on cholangiogram initially showed filling defects concerning for air bubbles or small stones, and after sphincterotomy and balloon sweep the CBD was clean without residual defects visualized. We have since been consulted for consideration of cholecystectomy. Today's labs show WBC 6.5, Tb 0.7, AST 93 (148), ALT 202 (284), AlkP 166. Patient's vital signs are stable. On exam patient is sitting up in bed eating lunch with the assistance of the [employer]CHO[employer] feeding him. I palpated his abdomen and it was soft, non distended, with questionable discomfort in the RUQ. He appears to be eating lunch without any issues at this time. Given history of concern for choledocholithiasis we typically recommend cholecystectomy to prevent further stones from dropping. Discussed with his daughter allegra who would like to discuss the proposal for surgery with her siblings. She will get back to us. We did book patient tentatively for tomorrow for the OR for lap aubrey if family is agreeable. Keep NPO at midnight. History of Present Illness Attending Physician: Darcy Huber MD History of Present Illness This is an 88yM with a PMH of dementia, T2DM, CKD who presents to the [facility] ED on 01/26/24 with complaints of abdominal pain that started that saturday. Of note majority of history obtained from chart review and speaking with the patient's primary contact (daughter-allegra) on the phone. He has baseline dementia and although may speak some limited hong konger was unable to provide me with a meaningful history. Patient's daughter mentioned even with the ipad/translater because of his mental status is not a good historian. [facility] care, including his daughter being one of his main caregivers. Apparently he developed abdominal pain and feeling cold last saturday and per family he never complains of much. Because of his symptoms he came to the ER. He underwent a CT a/p that showed cholelithiasis and choledocholithiasis without ductal dilatation. Follow up with a RUQ US showed cholelithiasis, without evidence of acute cholecystitis. The common bile duct is not distinctly defined due to respiratory and bowel gas artifact. Per his daughter he had no complaints of nausea/vomiting, fevers, or shortness of breath. His abdominal pain was associated with some chest pain. No mentions of prior abdominal surgery. No cardiac history. She tells me sometimes her father can be incontinent of stool and often pees frequently. She states he needs assistance with eating his meals, but there has not been any concerns of this happening before or any issues with eating fatty/greasy foods in the past. Allergies Allergy/AdvReac Type Severity Reaction Status Date / Time metformin Allergy Unknown UNK Verified 01/26/24 21:21 salicylates Allergy Unknown . Verified 01/26/24 21:21 Home Medications Medication Instructions Recorded Confirmed Type aspirin 81 mg tablet,delayed 81 mg PO QAM 03/07/18 01/26/24 History release brimonidine 0.2 %-timolol 0.5 % 1 drp OPB BID 03/07/18 01/26/24 History eye drops (Combigan) donepezil 10 mg tablet 10 mg PO QPM 03/07/18 01/26/24 History finasteride 5 mg tablet 5 mg PO QAM 03/07/18 01/26/24 History furosemide 40 mg tablet (Lasix) 40 mg PO UD 03/07/18 01/26/24 History gabapentin 300 mg capsule 600 mg PO BID 03/07/18 01/26/24 History (Neurontin) insulin glargine 100 unit/mL (3 30 unit subcut HS 03/07/18 01/26/24 History mL) subcutaneous pen (Lantus Solostar U-100 Insulin) metoprolol tartrate 25 mg tablet 12.5 mg PO BID 03/07/18 01/26/24 History nitroglycerin 0.4 mg sublingual 0.4 mg sublingual DIRECTED PRN 03/07/18 01/26/24 History tablet Chest Pain omeprazole 20 mg capsule,delayed 20 mg PO QAM 03/07/18 01/26/24 History release rosuvastatin 20 mg tablet 20 mg PO QAM 03/07/18 01/26/24 History terazosin 2 mg capsule 2 mg PO HS 03/07/18 01/26/24 History gabapentin 100 mg capsule 200 mg PO HS 03/15/19 01/26/24 History benzonatate 100 mg capsule 100 mg PO TID PRN Cough 01/26/24 01/26/24 History cholecalciferol (vitamin D3) 25 1,000 unit PO Q OTHER DAY 01/26/24 01/26/24 History mcg (1,000 unit) capsule (Vitamin D3) famotidine 20 mg tablet 20 mg PO BID 01/26/24 01/26/24 History guaifenesin 600 mg tablet, 600 mg PO Q12H PRN Congestion 01/26/24 01/26/24 History extended release 12 hr insulin lispro 100 unit/mL See Rx Instructions .Route .COMPLEX 01/26/24 01/26/24 History subcutaneous pen (Humalog KwikPen (U-100) Insulin) sertraline 50 mg tablet 25 mg PO QAM 01/26/24 01/26/24 History Patient History Medical History Diabetes Surgical History No pertinent past surgical history Family History Other Family history non-contributory Social History Smoking Status: Never smoker Hx Alcohol Use: No Hx Substance Use: No Preferred Language: Yakut Communication Ability: Effective Communication Ability Comment: speaks qatari, has dementia Base Manager Required: Yes Beliefs That Will Affect Care: None marital status: Single Current Living Situation: Family Current Living Situation Comment: 24hr care current occupational status: retired Feels Safe at Home: Yes Assistive Devices: Walker and Wheelchair Review of Systems Review of Systems: Unobtainable due to cognitive status (baseline dementia unable to provide reliable history) Physical Exam Physical Exam: awake, sitting up in bed with [employer] assisting him with lunch Respiratory: normal respiratory effort on room air Gastrointestinal (Abdomen): Inspection/Auscultation: abdomen not distended Percussion/Palpation: + abdomen tender (questionable RUQ pain with palpation ) and abdomen soft Skin: no jaundice Results & Data Vital Signs (Past 12 Hours) Vital Signs Temp Pulse Resp BP Pulse Ox O2 Del Method 01/29/24 07:40 97.2 F L 65 18 185/79 H 97 Room Air Diagnostic Findings EXAM: CT Abdomen and Pelvis Without Intravenous Contrast INDICATION: Upper abdominal pain. Elevated LFTs. TECHNIQUE: Axial computed tomography images of the abdomen and pelvis without intravenous contrast. Sagittal and coronal reformatted images were created and reviewed. This CT exam was performed using one or more of the following dose reduction techniques: automated exposure control, adjustment of the mA and/or kV according to patient size, and/or use of iterative reconstruction technique. COMPARISON: 03/07/2018 FINDINGS: Limitations: None. Lung bases: There is mild airway thickening in the lung bases. Pleural space: No visualized pleural effusion or pneumothorax. Heart: No abnormality noted. Mediastinum: No abnormality noted. ABDOMEN: Liver: Lack of intravenous contrast limits detection of some masses. No abnormality noted. Gallbladder and bile ducts: The gallbladder is mildly distended and contains multiple small stones. There is an approximate 2 cm stone in the cystic duct. There are multiple similar sized stones in the distal common bile duct. The duct is not dilated. No biliary air noted. Pancreas: No pancreatic mass, calcification, inflammation or ductal dilation noted. Spleen: No significant abnormality noted. Adrenals: No significant abnormality noted. Kidneys and ureters: Simple right renal cyst/s. No simple cyst follow-up necessary. Left kidney appears normal. No renal stone, hydronephrosis or perinephric fluid. Stable bilateral perinephric scarring. No stone, hydronephrosis or urinary gas. Stomach and bowel: Moderate to large amounts of stool throughout the colon without obstruction. PELVIS: Appendix: No findings to suggest acute appendicitis. Bladder: Thickened collapsed urinary bladder. No stones or gas. Reproductive: No abnormalities noted. ABDOMEN and PELVIS: Intraperitoneal space: No free air. No significant fluid collection. Bones/joints: Degenerative changes noted throughout the spine. No acute osseous abnormality seen. Soft tissues: Umbilical hernia containing fat. Vasculature: Atherosclerotic calcification of the aorta and branches. No aneurysm. Lymph nodes: No pathologically enlarged lymph nodes. IMPRESSION: 1. Cholelithiasis and choledocholithiasis without ductal dilatation. 2. Cystitis. Correlate with urinalysis. 3. Moderate to large amounts of colonic stool without obstruction or inflammation. ACT 112: Negative or not required by law. Electronically signed by Renea Palencia 01-26-2024 13:08 PM EXAM: US Abdomen Limited Gallbladder INDICATION: Chest pain. Elevated liver function tests. TECHNIQUE: Real-time ultrasound of the gallbladder with image documentation. COMPARISON: CT abdomen the same day FINDINGS: Gallbladder: Multiple gallstones noted. No wall thickening. Negative sonographic Sosa sign. Common bile duct: The common bile duct is poorly visualized due to artifact. Stones seen on CT are not defined. Pancreas: No significant abnormality noted. Liver: Normal size. Smooth contour. No ductal dilatation. No visible mass. IMPRESSION: 1. Cholelithiasis. No sonographic evidence of acute cholecystitis. 2. The common bile duct is not distinctly defined due to respiratory and bowel gas artifact. Common bile duct stones noted on CT are not sonographically defined. Consider MRCP if additional imaging is clinically warranted. ACT 112: Negative or not required by law. Electronically signed by Renea Palencia 01-26-2024 2:37 PM PG Care Time/CCT Total # of Minutes Spent Total Time Spent with Patient: Total time spent is greater than 50% in coordination of care (as documented) at patient's floor/unit and/or counseling patient: Coding Level of Care Code 30952 INT INP/OBS CARE 1/40MIN Diagnoses Choledocholithiasis K80.50
[2024-01-29] MEDS: LANTUS PER UNIT CHARGE SC ONE (13:06)
--- NOTE | 2024-01-29 15:45 | Hospitalist Progress Note ---
Date of Service January 29, 2024 Assessment & Plan (1) Choledocholithiasis: Plan: 88-year-old male with PMH of CAD, HTN, HLD, T2DM insulin requiring, CKD [baseline creatinine of 1.5], chronic anemia [baseline hemoglobin of 11], dementia, essential tremors, peripheral neuropathy, GERD, macular degeneration, glaucoma presented to the ED 01/25 with complaint of abdominal pain for 1 day, no shortness of breath or cough or nausea or fever or chills. He is being managed for the following: Abdominal pain secondary to choledocholithiasis Patient presented with abdominal pain of 1 day duration. Admitting CXR with no acute finding. Admitting CTAP with cholelithiasis and choledocholithiasis without ductal dilatation. Concern for cystitis. UA negative for UTI. Admitting gallbladder ultrasound with no evidence of cholecystitis. Ch olelithiasis noted. Admitting LFT elevated. Status post ERCP 01/28/2024: Filling defect noted on cholangiogram, sphincterotomy and bile duct swept with balloon. GI on board, continue with antibiotic coverage for next 1 days, ADAT. c/w iv atb. Gen Sx on board, for lap aubrey chucky. NPO midnight. Pt at mild mod risk for lap aubrey. No s/s of infection, no chest pain or sob. Abnormal CTAP, cystitis: UA negative for UTI. Acute kidney injury over CKD stage III: Baseline creatinine of 1.5, admitting creatinine 1.87. Almost resolved. Avoid nephrotoxic's. Other chronic medical conditions: Continue with/resume home meds as and when able. Presumptive CAD as per records on aspirin prophylaxis hypertension, stable hyperlipidemia, on statin Rx DM2 insulin requiring, reasonable control given chronic kidney dysfunction, hemoglobin A1c of 8.27 September 2023 . SSI chronic anemia, hemoglobin at baseline hx dementia/essential tremors/peripheral neuropathy DVT prophylaxis. SCDs re: possible procedure Full code pt/ot cm to assist w/ dc plan. Patient daughter Ms. Isadora Aguiar, contact # [phone]. She was updated over the phone regarding ERCP happening here chucky. Text document was generated using [employer] voice recognition software. It may contain grammatical or spelling errors. Kindly contact undersigned for clarification of any documentation item in question. Admission and Anticipated Discharge Date Admission Date: January 27, 2024 Subjective Patient was seen and examined at bedside. Patient was lying in bed, on room air, sleeping, NAD. Patient denies pain, patient denies fever or cough or sore throat. Per RN, pt eating ok. BM yesterday AM. None after ercp. d/w gen sx, plan for lap aubrey chucky. npo midnight. Physical Exam Physical Exam: GENERAL: Demented, comfortable, pleasant, no respiratory distress SKIN: Pallor, warm HEENT: Alopecia, pale palpebral conjunctivae, no ptosis, dry buccal mucosa NECK : Supple, no tenderness CHEST : CTA, no tenderness HEART : RRR, no obvious murmurs ABDOMEN: Some distention, non tender EXTREMITIES : No LE swelling/tenderness, no other conspicuous deformities noted NEUROLOGIC : Demented, no facial asymmetry, rest tremors, no other gross focality Results & Data Results & Data Vital Signs (Past 12 Hours) Vital Signs Temp Pulse Resp BP Pulse Ox O2 Del Method 01/29/24 07:40 36.2 C L 65 18 185/79 H 97 Room Air
[2024-01-30] MEDS: INSULIN ASPART PER UNIT CHARGE SC SCH ×3 (00:12→22:35)
[2024-01-30] MEDS ORDERED: Nursing to Pharmacy Communication SCH ×2 (07:15→22:30)
[2024-01-30 07:17] LABS: Hematocrit (blood only) 30.6 % (42.0-52.0); Hemoglobin 9.9 g/dl (14.0-18.0); Mean Corpuscular Hemoglobin 29.6 pg (25.0-34.0); Mean Corpuscular Hgb Conc 32.4 g/dL (32.0-36.0); Mean Corpuscular Volume 91.6 fL (80.0-100.0); Platelet Count 146 K/uL (130-400); RDW Coefficient of Variation 15.2 % (11.5-14.5); Red Blood Count 3.34 M/uL (4.70-6.10); White Blood Count 5.75 K/ul (4.8-10.8)
[2024-01-30 07:30] LABS: Calcium 8.2 mg/dl (8.6-10.3); Magnesium 1.8 mg/dl (1.7-2.4); Potassium 3.8 mmol/L (3.5-5.1)
[2024-01-30 07:36] LABS: BUN Creatinine Ratio 15.8 (10-20); Creatinine Clr Calc Pharmacy 26.8 ml/min; Phosphorus 2.8 mg/dl (2.5-4.9)
--- NOTE | 2024-01-30 08:23 | Gastroenterology Progress Note ---
Date of Service January 30, 2024 Assessment & Plan (1) Transaminitis: Plan: 88 year old CAD as per records, hypertension, hyperlipidemia, DM2 insulin requiring, CRI (baseline creatinine 1.5), chronic anemia (baseline hemoglobin of 11), dementia, essential tremors, peripheral neuropathy, GERD, macular degeneration, glaucoma and others below admitted w/ abdominal pain, elevated transaminases and CT imaging w/ cholelithiasis and choledocholithiasis without ductal dilatation. S/P ERCP w/ filling defects on cholangiogram s/p sphincterotomy following by sweeping of the bile duct w/o any residual defects seen after on repeat cholangiogram, feeling improved, family to decide today regarding CCY. Will review LFTs when return Appreciate general surgery evaluation for gallstones Continue IV fluids Recall GI as needed I spent a total of 40 minutes on the date of service in review of patient's record, and previously obtained information in person and appropriate medical visit, discussion and education of plan, with patient and/or caregiver, placing orders for tests/referral/procedures as medically necessary and documentation of pertinent clinical information in patient's medical records for their visit today. Thank you for allowing us to participate in the care of this patient. Please call with any acute changes, questions or concerns. Please see addendum below with additional recommendation from my supervising physician. Admission and Anticipated Discharge Date Admission Date: January 27, 2024 Supervising Physician Co-Signing Physician Notes I saw and examined this patient with our nurse practitioner and agree with her assessment and plan. Resting comfortably denies abdominal pain abdomen soft nontender. Stable post ERCP with sphincterotomy. LFTs pending. Possible cholecystectomy today after family discussion with surgeons. Subjective Pt was seen and evaluated, chart reviewed. Denies any concerns and notes he is feeling very good this AM. No leukocytosis, afebrile, LFTs not yet returned. Review of Systems Review of Systems: All other findings negative except as noted in HPI. Physical Exam Constitutional: WD/WN, vitals as above Respiratory: normal respiratory effort, lungs clear to auscultation Cardiovascular: Rate/Rhythm: regular rate and regular rhythm Gastrointestinal (Abdomen): normal bowel sounds, soft, nontender, no hepatosplenomegaly Skin: no rashes, warm and dry Results & Data Results & Data Vital Signs (Past 12 Hours) Vital Signs Temp Pulse Resp BP Pulse Ox O2 Del Method 01/30/24 07:57 36.3 C L 71 16 171/71 H 96 Room Air 01/29/24 20:27 36.5 C 65 18 127/62 97 Room Air Laboratory Results 01/30/24 01/30/24 01/30/24 Range/Units 08:11 06:51 03:49 WBC 5.75 (4.8-10.8) K/ul RBC 3.34 L (4.70-6.10) M/uL Hgb 9.9 L (14.0-18.0) g/dl Hct 30.6 L (42.0-52.0) % MCV 91.6 (80.0-100.0) fL MCH 29.6 (25.0-34.0) pg MCHC 32.4 (32.0-36.0) g/dL RDW Std Deviation 51.0 H (36.4-46.3) fL RDW Coeff of Damaris 15.2 H (11.5-14.5) % Plt Count 146 (130-400) K/uL MPV 11.0 (9.4-12.4) fL Sodium 140 (136-145) mmol/L Potassium 3.8 (3.5-5.1) mmol/L Chloride 110 H (98-107) mmol/L Carbon Dioxide 24 (21-32) mmol/L Anion Gap 6 (3-11) BUN 29 H (6-23) mg/dl Creatinine 1.84 H (0.6-1.4) mg/dl Est Cr Clr Drug Dosing 26.8 ml/min eGFR 34.83 BUN/Creatinine Ratio 15.8 (10-20) Glucose 118 H (70-99(Fasting)) mg/dl POC Glucose 122 H 115 H (70-99) mg/dl Calcium 8.2 L (8.6-10.3) mg/dl Phosphorus 2.8 (2.5-4.9) mg/dl Magnesium 1.8 (1.7-2.4) mg/dl Total Bilirubin (0.2-1.0) mg/dl Direct Bilirubin (0-0.2) mg/dl AST (13-39) U/L ALT (7-52) U/L Alkaline Phosphatase (34-104) U/L Total Protein (6.0-8.3) gm/dl Albumin (3.4-5.0) gm/dl 01/29/24 01/29/24 01/29/24 Range/Units 23:52 20:21 16:36 WBC (4.8-10.8) K/ul RBC (4.70-6.10) M/uL Hgb (14.0-18.0) g/dl Hct (42.0-52.0) % MCV (80.0-100.0) fL MCH (25.0-34.0) pg MCHC (32.0-36.0) g/dL RDW Std Deviation (36.4-46.3) fL RDW Coeff of Damaris (11.5-14.5) % Plt Count (130-400) K/uL MPV (9.4-12.4) fL Sodium (136-145) mmol/L Potassium (3.5-5.1) mmol/L Chloride (98-107) mmol/L Carbon Dioxide (21-32) mmol/L Anion Gap (3-11) BUN (6-23) mg/dl Creatinine (0.6-1.4) mg/dl Est Cr Clr Drug Dosing ml/min eGFR BUN/Creatinine Ratio (10-20) Glucose (70-99(Fasting)) mg/dl POC Glucose 85 136 H 169 H (70-99) mg/dl Calcium (8.6-10.3) mg/dl Phosphorus (2.5-4.9) mg/dl Magnesium (1.7-2.4) mg/dl Total Bilirubin (0.2-1.0) mg/dl Direct Bilirubin (0-0.2) mg/dl AST (13-39) U/L ALT (7-52) U/L Alkaline Phosphatase (34-104) U/L Total Protein (6.0-8.3) gm/dl Albumin (3.4-5.0) gm/dl 01/29/24 01/29/24 01/29/24 Range/Units 11:14 11:11 08:48 WBC 6.57 (4.8-10.8) K/ul RBC 3.41 L (4.70-6.10) M/uL Hgb 10.0 L (14.0-18.0) g/dl Hct 31.7 L (42.0-52.0) % MCV 93.0 (80.0-100.0) fL MCH 29.3 (25.0-34.0) pg MCHC 31.5 L (32.0-36.0) g/dL RDW Std Deviation 52.0 H (36.4-46.3) fL RDW Coeff of Damaris 15.3 H (11.5-14.5) % Plt Count 149 (130-400) K/uL MPV 10.9 (9.4-12.4) fL Sodium 142 (136-145) mmol/L Potassium 4.1 (3.5-5.1) mmol/L Chloride 111 H (98-107) mmol/L Carbon Dioxide 26 (21-32) mmol/L Anion Gap 5 (3-11) BUN 27 H (6-23) mg/dl Creatinine 1.63 H (0.6-1.4) mg/dl Est Cr Clr Drug Dosing 30.3 ml/min eGFR 40.28 BUN/Creatinine Ratio 16.6 (10-20) Glucose 331 H* (70-99(Fasting)) mg/dl POC Glucose 358 H* 358 H* (70-99) mg/dl Calcium 8.4 L (8.6-10.3) mg/dl Phosphorus 2.6 (2.5-4.9) mg/dl Magnesium 1.8 (1.7-2.4) mg/dl Total Bilirubin 0.7 (0.2-1.0) mg/dl Direct Bilirubin 0.2 (0-0.2) mg/dl AST 93 H (13-39) U/L ALT 202 H (7-52) U/L Alkaline Phosphatase 166 H (34-104) U/L Total Protein 6.0 (6.0-8.3) gm/dl Albumin 2.9 L (3.4-5.0) gm/dl PG Care Time/CCT Total # of Minutes Spent Total Time Spent with Patient: Total time spent is greater than 50% in coordination of care (as documented) at patient's floor/unit and/or counseling patient: Coding Level of Care Code 01370 SUB INP/OBS CARE 2/35MIN Diagnoses Transaminitis R74.01
[2024-01-30] MEDS ORDERED: LANTUS PER UNIT CHARGE SC SCH (09:00)
[2024-01-30] MEDS ORDERED: LANTUS PER UNIT CHARGE SQ SCH (09:00)
[2024-01-30] MEDS: SODIUM CHLORIDE 0.45 % 1,000 ML IV SCH (09:52)
[2024-01-30] MEDS ORDERED: PROPOFOL IV EMULSION 10 MG/ML 20 ML VIAL IV ONE ×3 (10:02→17:29)
[2024-01-30] MEDS ORDERED: DEXAMETHASONE SOD INJ 4 MG/ML VIAL ONE (10:02)
[2024-01-30] MEDS ORDERED: fentaNYL citrate PF 100 MCG/2 ML VIAL ONE ×2 (10:02→15:15)
[2024-01-30] MEDS ORDERED: ONDANSETRON INJ 2 MG/ML 2 ML VIAL ONE ×2 (10:02→15:15)
[2024-01-30] MEDS ORDERED: LIDOCAINE 2% 2 ML VIAL/AMP(20MG/ML) INFIL ONE ×3 (10:02→15:15)
[2024-01-30] MEDS ORDERED: ROCURONIUM BROMIDE 10 MG/ML 5 ML VIAL IV ONE ×2 (10:04→15:15)
[2024-01-30 11:18] LABS: Albumin Level 2.8 gm/dl (3.4-5.0); Bilirubin Direct 0.2 mg/dl (0-0.2); Bilirubin,Total 0.4 mg/dl (0.2-1.0)
[2024-01-30 11:23] LABS: Total Protein 5.9 gm/dl (6.0-8.3)
--- NOTE | 2024-01-30 11:35 | History & Physical Bridge Note ---
Date of Service January 30, 2024 History & Physical Bridge Note I have examined the patient, reviewed the History & Physical and in the interval since the performance of the History & Physical I have noted the following changes of clinical significance: discussed care with patient's daughter via telephone. discussed risks of surgery as well as options. discussed bleeding/infection/blood clots/injury to other organs/dvt/pe/mi/cva etc... questions answered. she agrees with the plan. will proceed today with woo burgos
--- NOTE | 2024-01-30 12:53 | Hospitalist Progress Note ---
Date of Service January 30, 2024 Assessment & Plan (1) Choledocholithiasis: Plan: 88-year-old male with PMH of CAD, HTN, HLD, T2DM insulin requiring, CKD [baseline creatinine of 1.5], chronic anemia [baseline hemoglobin of 11], dementia, essential tremors, peripheral neuropathy, GERD, macular degeneration, glaucoma presented to the ED 01/25 with complaint of abdominal pain for 1 day, no shortness of breath or cough or nausea or fever or chills. He is being managed for the following: Abdominal pain secondary to choledocholithiasis Patient presented with abdominal pain of 1 day duration. Admitting CXR with no acute finding. Admitting CTAP with cholelithiasis and choledocholithiasis without ductal dilatation. Concern for cystitis. UA negative for UTI. Admitting gallbladder ultrasound with no evidence of cholecystitis. Ch olelithiasis noted. Admitting LFT elevated. Status post ERCP 01/28/2024: Filling defect noted on cholangiogram, sphincterotomy and bile duct swept with balloon. GI on board, Appreciate recommendation. c/w iv atb. Likely DC tomorrow. Patient will be going for lap aubrey today. Resume diet after lap aubrey starting with low-fat clear liquid diet. Abnormal CTAP, cystitis: UA negative for UTI. Acute kidney injury over CKD stage III: Baseline creatinine of 1.5, admitting creatinine 1.87. Creatinine up trended today, initiated gentle IV fluid, labs in AM. Avoid nephrotoxic's. Other chronic medical conditions: Continue with/resume home meds as and when able. Presumptive CAD as per records on aspirin prophylaxis hypertension, stable hyperlipidemia, on statin Rx DM2 insulin requiring, reasonable control given chronic kidney dysfunction, hemoglobin A1c of 8.27 September 2023 . SSI chronic anemia, hemoglobin at baseline hx dementia/essential tremors/peripheral neuropathy DVT prophylaxis. SCDs re: possible procedure Full code pt/ot cm to assist w/ dc plan. Patient daughter Ms. Isadora Aguiar, contact # [phone]. Text document was generated using [employer] voice recognition software. It may contain grammatical or spelling errors. Kindly contact undersigned for clarification of any documentation item in question. Admission and Anticipated Discharge Date Admission Date: January 27, 2024 Subjective Patient was seen and examined at bedside. Patient was lying in bed, on room air, sleeping, NAD. Patient denies pain, patient denies fever or cough or sore throat. patient is n.p.o., waiting for lap aubrey later in the day. Will put him on gentle IV fluid until surgery, can resume diet after the surgery. Physical Exam Physical Exam: GENERAL: Demented, comfortable, pleasant, no respiratory distress SKIN: Pallor, warm HEENT: Alopecia, pale palpebral conjunctivae, no ptosis, dry buccal mucosa NECK : Supple, no tenderness CHEST : CTA, no tenderness HEART : RRR, no obvious murmurs ABDOMEN: Some distention, non tender EXTREMITIES : No LE swelling/tenderness, no other conspicuous deformities noted NEUROLOGIC : Demented, no facial asymmetry, rest tremors, no other gross focality Results & Data Results & Data Vital Signs (Past 12 Hours) Vital Signs Temp Pulse Resp BP Pulse Ox O2 Del Method 01/30/24 10:04 Room Air 01/30/24 07:57 36.3 C L 71 16 171/71 H 96 Room Air
[2024-01-30] MEDS ORDERED: MIDAZOLAM HCL 1 MG/ML 2ML VIAL ONE (15:15)
--- NOTE | 2024-01-30 15:39 | Anesthesiology Consultation ---
Date of Service January 30, 2024 Assessment & Plan Chart Review Chart Review: Acceptable Risk for Surgery and Patient NOT seen in Pre Admission Testing Consults Requested none ASA ASA4 Proposed Anesthesia Anesthesia Type: General Risk / Benefits Reviewed With: PT / POA / Parent / Guardian, Accepts Plan and Informed Consent Obtained History Surgery Operation Date: 01/28/24 18:10 Proposed Procedures p Endoscopic Retrograde Cholangiopancreatogram - Garrett Garcia MD Operation Date: 01/30/24 08:20 Proposed Procedures p Laparoscopic Cholecystectomy - Adalberto Stokes DO Height/Weight Height: 5 ft 8 in Weight: 73 kg Allergies Allergy/AdvReac Type Severity Reaction Status Date / Time metformin Allergy Unknown UNK Verified 01/26/24 21:21 salicylates Allergy Unknown . Verified 01/26/24 21:21 Medications Home Medications Medication Instructions Recorded Confirmed Last Taken aspirin 81 mg tablet,delayed 81 mg PO QAM 03/07/18 01/26/24 01/26/24 release brimonidine 0.2 %-timolol 0.5 % 1 drp OPB BID 03/07/18 01/26/24 01/26/24 eye drops (Combigan) AM donepezil 10 mg tablet 10 mg PO QPM 03/07/18 01/26/24 01/25/24 finasteride 5 mg tablet 5 mg PO QAM 03/07/18 01/26/24 01/26/24 furosemide 40 mg tablet (Lasix) 40 mg PO UD 03/07/18 01/26/24 01/24/24 gabapentin 300 mg capsule 600 mg PO BID 03/07/18 01/26/24 01/26/24 (Neurontin) AM insulin glargine 100 unit/mL (3 30 unit subcut HS 03/07/18 01/26/24 01/25/24 mL) subcutaneous pen (Lantus Solostar U-100 Insulin) metoprolol tartrate 25 mg tablet 12.5 mg PO BID 03/07/18 01/26/24 01/26/24 AM DOSE nitroglycerin 0.4 mg sublingual 0.4 mg sublingual DIRECTED PRN 03/07/18 01/26/24 04/26/19 tablet Chest Pain omeprazole 20 mg capsule,delayed 20 mg PO QAM 03/07/18 01/26/24 01/26/24 release rosuvastatin 20 mg tablet 20 mg PO QAM 03/07/18 01/26/24 01/26/24 terazosin 2 mg capsule 2 mg PO HS 03/07/18 01/26/24 01/25/24 gabapentin 100 mg capsule 200 mg PO HS 03/15/19 01/26/24 01/25/24 benzonatate 100 mg capsule 100 mg PO TID PRN Cough 01/26/24 01/26/24 Unknown cholecalciferol (vitamin D3) 25 1,000 unit PO Q OTHER DAY 01/26/24 01/26/24 01/26/24 mcg (1,000 unit) capsule (Vitamin D3) famotidine 20 mg tablet 20 mg PO BID 01/26/24 01/26/24 01/26/24 AM guaifenesin 600 mg tablet, 600 mg PO Q12H PRN Congestion 01/26/24 01/26/24 Unknown extended release 12 hr insulin lispro 100 unit/mL See Rx Instructions .Route .COMPLEX 01/26/24 01/26/24 Unknown subcutaneous pen (Humalog KwikPen (U-100) Insulin) sertraline 50 mg tablet 25 mg PO QAM 01/26/24 01/26/24 01/26/24 Active Medications Generic Name Dose Route Start Last Admin Trade Name Freq PRN Reason Stop Dose Admin Acetaminophen 500 mg 01/26/24 20:55 01/27/24 09:25 Acetaminophen 500 Mg Tab PO 02/25/24 20:54 500 mg Q6H PRN Administration fever/pain Donepezil HCl 10 mg 01/27/24 16:30 01/29/24 17:21 Donepezil Hcl 10 Mg Tab PO 02/26/24 16:29 10 mg QDD NAHUN Administration Famotidine 20 mg 01/26/24 21:45 01/30/24 08:02 Famotidine 20 Mg Tab PO 02/25/24 21:44 20 mg BID NAHUN Administration Finasteride 5 mg 01/27/24 09:00 01/30/24 08:03 Finasteride 5 Mg Tab PO 02/26/24 08:59 5 mg QAM NAHUN Administration Gabapentin 200 mg 01/27/24 09:00 01/30/24 13:43 Gabapentin 100 Mg Cap PO 02/26/24 08:59 Not Given TID NAHUN Ampicillin Sodium/Sulbactam Sodium 3,000 mg in 100 mls @ 200 mls/hr 01/27/24 14:45 01/30/24 14:31 Unasyn IV 02/06/24 14:44 200 mls/hr Q12H NAHUN Administration Sodium Chloride 1,000 mls @ 60 mls/hr 01/30/24 08:45 01/30/24 09:52 1/2 Nss IV 01/31/24 01:24 60 mls/hr .[id number] NAHUN Administration Insulin Aspart 0 units 01/30/24 07:15 01/30/24 12:38 Insulin Aspart Per Unit Charge SC 02/27/24 16:54 Not Given Q6 NAHUN Metoprolol Tartrate 12.5 mg 01/26/24 21:45 01/30/24 08:03 Metoprolol Tartrate 25 Mg Tab PO 02/25/24 21:44 12.5 mg BID NAHUN Administration Miscellaneous 1 each 01/27/24 08:00 01/30/24 07:50 Order Awaiting Action: Non-Formulary Medication (Brimonidine-Timolol [Combigan] 0.2-0.5 % N/A 02/26/24 07:59 Not Given QS NAHUN Miscellaneous 15 - 30 gm 01/26/24 21:45 01/27/24 16:52 Carbohydrates For Hypoglycemia PO 02/25/24 21:44 15 gm UD PRN Administration Hypoglycemia Treatment Pantoprazole Sodium 40 mg 01/27/24 09:00 01/30/24 08:03 Pantoprazole 40 Mg Tab PO 02/26/24 08:59 40 mg QAM NAHUN Administration Senna/Docusate Sodium 1 tab 01/26/24 23:30 01/30/24 08:03 Docusate Sodium/Senna 50/8.6mg Tab PO 02/25/24 23:29 1 tab QAM NAHUN Administration Sertraline HCl 25 mg 01/27/24 09:00 01/30/24 08:02 Sertraline Hcl 50 Mg Tablet PO 02/26/24 08:59 25 mg QAM NAHUN Administration Terazosin HCl 2 mg 01/26/24 21:35 01/29/24 21:34 Terazosin Hcl 1 Mg Cap PO 02/25/24 21:34 2 mg HS NAHUN Administration NPO Date Last Intake of Fluids: 01/30/24 Time Last Intake of Fluids: 08:03 Last Intake of Fluids Comment: sips with meds Date Last Intake of Solids: 01/29/24 Time Last Intake of Solids: 18:00 Past Medical History Medical History Diabetes Exercise / Class Metabolic Activity III < 4 Walking/Shop/Light housework Past Family History Family History Other Family history non-contributory Past Surgical History Surgical History No pertinent past surgical history Past Anesthesia History No Hx of Anesthesia Complications and No Family Hx of Anesthesia Complications History of PONV No Hx of PONV and No Hx of Motion Sickness Social History Smoking Status: Never smoker Hx Alcohol Use: No Hx Substance Use: No Physical Exam Vital Signs Last Vital Signs Temp 36.8 C 01/30/24 15:00 Pulse 64 01/30/24 15:00 Resp 16 01/30/24 15:00 BP 157/62 H 01/30/24 15:00 Pulse Ox 98 01/30/24 15:00 O2 Del Method Room Air 01/30/24 15:00 O2 Flow Rate 5 01/28/24 14:55 Constitutional no acute distress and not cachectic ENMT Mouth: + dentition abnormality and + edentulous Thyromental Distance: > or= 3.5 Finger Breadths Mallampati Class: II Neck normal visual inspection, trachea midline and + facial hair; neck extension not limited Respiratory normal respiratory effort Auscultation: + diminished lung sounds Cardiovascular Rate/Rhythm: regular rate and regular rhythm Heart Sounds: no murmur Vessels: no carotid bruit Musculoskeletal Spine: normal cervical ROM and no pain with cervical ROM Extremities: full ROM of extremities Neurologic moves all extremities Motor/Sensory: no sensory deficit Psychiatric Orientation: + not alert and + not oriented x 3 patient has dementia Testing Laboratory Results 01/30/24 06:51 01/30/24 06:51 PT 10.8 Seconds (9.0-12.0) 01/28/24 07:52 INR 1.0 (0.9-1.1) 01/28/24 07:52 APTT 26 Seconds (21-31) 01/28/24 07:52 Hemoglobin A1c 7.8 % (4.5-5.6) H 01/27/24 06:41 01/30/24 01/30/24 01/30/24 15:06 11:53 08:11 POC Glucose 112 H 114 H 122 H 01/30/24 03:49 POC Glucose 115 H Electrocardiogram Date: 01/26/24 Findings: + NSR @ (@ 77w/ SA) Chest X-Ray Date: 01/26/24 Findings: + NAD Echocardiogram Date: 01/30/17 EF: 65% LV Function: normal RWMA: + none Other Findings: + LVH (mild) and + diastolic dysfunction (Grade 1) Valvular Disease: + no significant valvular disease
[2024-01-30] MEDS ORDERED: ATROPINE SULFATE 0.1 MG/ML 10ML SYR IV PRN (15:41)
[2024-01-30] MEDS ORDERED: ePHEDrine sulfate 50 MG/ML AMP IV PRN (15:41)
[2024-01-30] MEDS ORDERED: PROMETHAZINE HCL 6.25 MG in SODIUM CHLORIDE 0.9% 50 ML IV PRN (15:41)
[2024-01-30] MEDS ORDERED: LABETALOL HCL IV 5 MG/ML 20ML IV PRN (15:41)
[2024-01-30] MEDS ORDERED: fentaNYL citrate PF 100 MCG/2 ML VIAL IV PRN (15:41)
[2024-01-30] MEDS ORDERED: NALOXONE HCL 0.4 MG/1 ML VIAL/CARP IV PRN (15:41)
--- NOTE | 2024-01-30 16:12 | Pharmacy Report ---
Pharmacy Glycemic Short Note 2 - Date of Service January 30, 2024 - Glycemic Short BSG Results (Last 24 hours): 01/29/24 01/29/24 01/29/24 16:36 20:21 23:52 Glucose POC Glucose 169 H 136 H 85 01/30/24 01/30/24 01/30/24 03:49 06:51 08:11 Glucose 118 H POC Glucose 115 H 122 H 01/30/24 01/30/24 11:53 15:06 Glucose POC Glucose 114 H 112 H OUTPATIENT ANTIDIABETIC REGIMEN: * Lantus 30 units SQ q HS * Humalog--12 units at breakfast, 10 units at lunch, 13 units at supper HbA1c 7.8% on 01/27/24 ASSESSMENT: 01/29: * Patient is NPO for laparoscopic cholecystectomy. BSGs in the low 100s. Will decrease basal insulin for this evening. * Will loosen Novolog parameters given post prandial BSGs were trending downward last evening. 01/28: * 88 year old male admitted 01/25 with abdominal pain secondary to choledocholithiasis. PMH of CKD (SCr 1.63 today) and T2DM. Pharmacy was consulted for glycemic management. * Patient usually receives a total of 65 units of insulin daily as an outpatient. 5 units of insulin were give yesterday (all were bolus) * Fasting BSG today was 283mg/dl and mino to 358mg/dl with lunch today. 5 units of Lantus were already given this morning so an additional 25 units were ordered for this afternoon (10units x 1 then 15 units x 1). Goal is to transition him back to home dose of lantus HS. * Bolus insulin parameters were tightened starting with lunch today. PLAN FOR INPATIENT GLYCEMIC CONTROL: * Hold outpatient diabetes medications * Basal insulin * Lantus 10-15 units SQ total today * Bolus insulin * NovoLog per scale ACHS or Q6hrs while NPO * Goal Range: Low 110 mg/dL - High 140 mg/dL * Correction Factor: 25 mg/dL/unit * Nutritional / Prandial insulin per carb ratio of 1 unit per 9 grams CHO consumed
[2024-01-30] MEDS ORDERED: ePHEDrine sulfate 50 MG/5 ML SYR ONE (17:03)
[2024-01-30] MEDS: BUPIVACAINE/EPINEPHRINE 0.5% MPF 1:200,000 30 ML VIAL ONE (17:07)
[2024-01-30] MEDS ORDERED: SUGAMMADEX SODIUM 200 MG/2 ML VIAL IV ONE (17:19)
[2024-01-30] MEDS ORDERED: PHENYLEPHRINE 100MCG/ML 5ML SYR ONE (17:24)
--- NOTE | 2024-01-30 18:20 | Operative Report ---
PG Post Operative Report Pre & Post Diagnosis Operation Date: 01/30/24 08:20 Pre-Op Diagnosis: Cholelithiasis Post-Op Diagnosis: Cholelithiasis I identified the patient and participated in the time-out.: Yes Procedure Operation Date: 01/30/24 08:20 Actual Procedures p Laparoscopic Cholecystectomy(Not Applicable) - Adalberto Stokes DO Surgeon Adalberto Stokes DO Employment Attorney bull Beard Estimated Blood Loss 300 Findings Consistent with Post-Op Diagnosis Specimens gallbladder Description of Procedure After informed consent was obtained the patient was taken to the operating room and placed in the supine position. After successful intubation the abdomen was sterilely prepped and draped in usual fashion. A periumbilical incision was made with an 11 blade scalpel and carried down through the soft tissue using electrocautery. The anterior rectus fascia was opened using electrocautery and 2 #0 Vicryl stay sutures were placed. The peritoneum was elevated with hemostats and incised under direct vision using Metzenbaum scissors. A finger sweep was performed and a 12 mm Gonzalez trocar was placed. The abdomen was i nsufflated to 18 mmHg. The laparoscope was inserted and the abdomen was examined in 360. There is actually some inflammation around the gallbladder which was surprising to me. Otherwise there were no other gross abnormalities were identified. A subxiphoid 5 mm port and 2 right upper quadrant 5 mm ports were placed under direct vision. The patient was placed in a reverse Trendelenburg position and slightly airplaned to the left. The gallbladder was grasped and elevated superiorly and laterally. A [place] dissector was used to take down adhesions around the neck of the gallbladder. The cystic duct was identified and skeletonized. It was clipped twice proximally and once distally and transected using a laparoscopic scissor. In similar fashion the cystic artery was identified and skeletonized clipped and divided. There was a second posterior branch that I skeletonized clipped and divided as well. However during this process a small hole was made in the right hepatic artery. We did lose a little blood during this process. Eventually I was able to place a clip just proximal to the small hole in the right hepatic artery. This controlled the bleeding. The gallbladder was removed from the gallbladder fossa with electrocautery. It was placed into an Endo Catch bag. Thorough irrigation was performed. At the end of the procedure there was adequate hemostasis and no mary carmen dence of any bile leaks. Because of the inflammation as well as the intraoperative bleeding I decided to place a Levi-Hurd drain. A 10 flat Levi-Hurd drain was placed into the right upper quadrant and brought out through one of the right upper quadrant trocar sites. It was secured to the skin using 0 Vicryl. A final look around the abdomen showed no other abnormalities. The gallbladder and trochars were all removed and the abdomen was desufflated. The fascia of the camera port was closed using 0 Vicryl in a [id number] fashion. All the wounds were irrigated and closed using 4-0 Monocryl. Marcaine was injected around them for postoperative analgesia and skin glue used as a dressing. The patient was awakened, extubated and transferred to recovery in stable condition. My physician's office support assistant was present throughout the entire case... helped with prepping the patient. With exposure for trocar placement, as well as retracted the gallbladder throughout the case and also assisted with wound closure and dressing placement. I attest to the content of the Intraoperative Record and any orders documented therein. Any exceptions are noted below.
[2024-01-30] MEDS: ONDANSETRON INJ 2 MG/ML 2 ML VIAL IV PRN (18:32)
--- NOTE | 2024-01-30 19:43 | Anesthesiology Progress Note ---
Date of Service January 30, 2024 Anesthesia Post Procedure Vital Signs Vital Signs: Temp Pulse Pulse Resp BP Pulse Ox O2 Del Method 01/30/24 19:30 36.5 C 72 16 114/62 95 Room Air 01/30/24 19:15 67 67 H 114/51 L 94 Room Air 01/30/24 19:00 68 17 117/53 L 94 Room Air 01/30/24 18:45 36.5 C 68 19 118/51 L 99 Room Air 01/30/24 18:35 70 18 127/55 L 100 Oxymask 01/30/24 18:25 72 19 129/56 L 100 Oxymask 01/30/24 18:15 36 C L 74 19 142/65 H 100 Oxymask 01/30/24 15:00 36.8 C 64 16 157/62 H 98 Room Air 01/30/24 10:04 Room Air 01/30/24 07:57 36.3 C L 71 16 171/71 H 96 Room Air 01/29/24 20:27 36.5 C 65 18 127/62 97 Room Air O2 Flow Rate 01/30/24 19:30 01/30/24 19:15 01/30/24 19:00 01/30/24 18:45 01/30/24 18:35 3 01/30/24 18:25 6 01/30/24 18:15 6 01/30/24 15:00 01/30/24 10:04 01/30/24 07:57 01/29/24 20:27 Pain Intensity Chest: Pain Intensity: 0 Transfer of Care Handoff Completed per policy Notes Mental Status: alert / awake / arousable Patient Amnestic to Procedure: Yes Nausea / Vomiting: adequately controlled Pain: adequately controlled Airway Patency, RR, SpO2: stable & adequate BP & HR: stable & adequate Hydration State: stable & adequate Anesthetic Complications: no major complications apparent
[2024-01-30] MEDS: SODIUM CHLORIDE 0.9% 1,000 ML IV SCH (19:46)
[2024-01-30] MEDS: oxyCODONE HCL IR 5 MG TAB (IMMEDIATE RELEASE) PO PRN (19:51)
[2024-01-30] MEDS: LANTUS PER UNIT CHARGE SQ SCH (22:10)
[2024-01-31 07:40] LABS: Basophils # (auto) 0.02 K/uL (0.00-0.20); Basophils % (auto) 0.2 %; Hematocrit (blood only) 27.1 % (42.0-52.0); Hemoglobin 8.8 g/dl (14.0-18.0); Immature Granulocytes # (auto) 0.07 K/uL (0.01-0.20); Immature Granulocytes % (auto) 0.6 %; Lymphocytes # (auto) 0.51 K/uL (1.20-3.40); Lymphocytes % (auto) 4.4 %; Mean Corpuscular Hemoglobin 29.5 pg (25.0-34.0); Mean Corpuscular Hgb Conc 32.5 g/dL (32.0-36.0); Mean Corpuscular Volume 90.9 fL (80.0-100.0); Monocytes # (auto) 0.73 K/uL (0.11-0.59); Monocytes % (auto) 6.3 %; Neutrophils # (auto) 10.21 K/uL (1.40-6.50); Neutrophils % (auto) 88.5 %; Platelet Count 139 K/uL (130-400); RDW Coefficient of Variation 15.4 % (11.5-14.5); RDW Standard Deviation 50.8 fL (36.4-46.3); Red Blood Count 2.98 M/uL (4.70-6.10); White Blood Count 11.54 K/ul (4.8-10.8)
[2024-01-31] MEDS: LANTUS PER UNIT CHARGE SQ SCH ×2 (09:22→21:00)
--- NOTE | 2024-01-31 09:51 | Surgery Progress Note ---
Date of Service January 31, 2024 Assessment & Plan (1) Choledocholithiasis: Plan: Postoperative day #1 Clinically looks okay Would monitor H/H another 24 hours Admission and Anticipated Discharge Date Admission Date: January 27, 2024 Subjective Patient seen. Patient nonverbal with dementia however appears comfortable Physical Exam Physical Exam: Abdomen is soft with expected tenderness. Incisions look good. SAMEER drain serous Results & Data Vital Signs (Past 12 Hours) Vital Signs Temp Pulse Resp BP BP Pulse Ox O2 Del Method 01/31/24 07:33 36.9 C 92 H 16 101/60 92 Room Air 01/31/24 04:08 37.2 C 01/31/24 03:38 38 C H 77 18 127/69 94 Room Air 01/30/24 23:11 36.9 C 72 18 143/76 H 95 Room Air PG Care Time/CCT Total # of Minutes Spent Total Time Spent with Patient: Total time spent is greater than 50% in coordination of care (as documented) at patient's floor/unit and/or counseling patient: Coding Level of Care Code 82081 Post Operative Follow-Up Diagnoses Choledocholithiasis K80.50
[2024-01-31 09:56] LABS: Albumin Level 2.5 gm/dl (3.4-5.0); Bilirubin,Total 0.5 mg/dl (0.2-1.0); Calcium 7.8 mg/dl (8.6-10.3); Magnesium 1.7 mg/dl (1.7-2.4)
[2024-01-31 10:04] LABS: Albumin Globulin Ratio 0.9 (0.9-2); BUN Creatinine Ratio 15.5 (10-20); Creatinine Clr Calc Pharmacy 22.6 ml/min; Globulin 2.8 gm/dl (2.5-4.0); Potassium 4.2 mmol/L (3.5-5.1); Total Protein 5.3 gm/dl (6.0-8.3)
[2024-01-31] MEDS: INSULIN HUMAN REGULAR PER UNIT 5 UNITS in SYRINGE 4.95 ML IV ONE (12:18)
--- NOTE | 2024-01-31 14:07 | Pharmacy Report ---
Pharmacy Glycemic Short Note 2 - Date of Service January 31, 2024 - Glycemic Short BSG Results (Last 24 hours): 01/30/24 01/30/24 01/30/24 15:06 18:54 20:42 Glucose POC Glucose 112 H 128 H 153 H 01/31/24 01/31/24 01/31/24 07:15 07:32 11:33 Glucose 249 H POC Glucose 270 H 332 H* 01/31/24 01/31/24 11:34 13:56 Glucose POC Glucose 311 H* 242 H OUTPATIENT ANTIDIABETIC REGIMEN: * Lantus 30 units SQ q HS * Humalog--12 units at breakfast, 10 units at lunch, 13 units at supper HbA1c 7.8% on 01/27/24 ASSESSMENT: 01/30: * Blood sugars well-controlled yesterday on POD #0 s/p laparoscopic cholecystectomy * Clear liquid diet this morning, advanced to T2DM low fat * Blood sugars trended up this morning (270 mg/dL) - will increase basal and tighten Novolog today * 311 mg/dL at lunch -> will give one-time IV insulin bolus 01/29: * Patient is NPO for laparoscopic cholecystectomy. BSGs in the low 100s. Will decrease basal insulin for this evening. * Will loosen Novolog parameters given post prandial BSGs were trending downward last evening. 01/28: * 88 year old male admitted 01/25 with abdominal pain secondary to choledocho lithiasis. PMH of CKD (SCr 1.63 today) and T2DM. Pharmacy was consulted for glycemic management. * Patient usually receives a total of 65 units of insulin daily as an outpatient. 5 units of insulin were give yesterday (all were bolus) * Fasting BSG today was 283mg/dl and mino to 358mg/dl with lunch today. 5 units of Lantus were already given this morning so an additional 25 units were ordered for this afternoon (10units x 1 then 15 units x 1). Goal is to transition him back to home dose of lantus HS. * Bolus insulin parameters were tightened starting with lunch today. PLAN FOR INPATIENT GLYCEMIC CONTROL: * Basal insulin * Lantus 15 units SC BID * Bolus insulin * NovoLog per scale ACHS or Q6hrs while NPO * Goal Range: Low 110 mg/dL - High 140 mg/dL * Correction Factor: 20 mg/dL/unit * Nutritional / Prandial insulin per carb ratio of 1 unit per 7 grams CHO consumed
--- NOTE | 2024-01-31 16:20 | Hospitalist Progress Note ---
Date of Service January 31, 2024 Assessment & Plan (1) Choledocholithiasis: Plan: 88-year-old male with PMH of CAD, HTN, HLD, T2DM insulin requiring, CKD [baseline creatinine of 1.5], chronic anemia [baseline hemoglobin of 11], dementia, essential tremors, peripheral neuropathy, GERD, macular degeneration, glaucoma presented to the ED 01/25 with complaint of abdominal pain for 1 day, no shortness of breath or cough or nausea or fever or chills. He is being managed for the following: Abdominal pain secondary to choledocholithiasis Patient presented with abdominal pain of 1 day duration. Admitting CXR with no acute finding. Admitting CTAP with cholelithiasis and choledocholithiasis without ductal dilatation. Concern for cystitis. UA negative for UTI. Admitting gallbladder ultrasound with no evidence of cholecystitis. Ch olelithiasis noted. Admitting LFT elevated. Status post ERCP 01/28/2024: Filling defect noted on cholangiogram, sphincterotomy and bile duct swept with balloon. GI on board, Appreciate recommendation. Appreciate surgery input and recommendation Status post laparoscopic cholecystectomy on 01/30/2024 Remains stable following the procedure and has minimal abdominal pain As per surgery likely discharge tomorrow if remains stable Will need to have PT and OT evaluation prior to discharge- will discontinue antibiotic tomorrow He has been tolerating diet Abnormal CTAP, cystitis: UA negative for UTI. Acute kidney injury over CKD stage III: Baseline creatinine of 1.5, admitting creatinine 1.87. Creatinine up trended today, initiated gentle IV fluid, labs in AM. Avoid nephrotoxic's. Other chronic medical conditions: Continue with/resume home meds as and when able. Presumptive CAD as per records on aspirin prophylaxis hypertension, stable hyperlipidemia, on statin Rx DM2 insulin requiring, reasonable control given chronic kidney dysfunction, hemoglobin A1c of 8.27 September 2023 . SSI chronic anemia, hemoglobin at baseline hx dementia/essential tremors/peripheral neuropathy DVT prophylaxis. SCDs re: possible procedure Full code pt/ot cm to assist w/ dc plan. Patient daughter Ms. Isadora Aguiar, contact # [phone]. Text document was generated using [employer] voice recognition software. It may contain grammatical or spelling errors. Kindly contact undersigned for clarification of any documentation item in question. Admission and Anticipated Discharge Date Admission Date: January 27, 2024 Subjective 01/31/2024 The patient was seen and examined in medical floor Denies any acute distress or pain, no nausea and/or vomiting Review of Systems Review of Systems: Unobtainable due to cognitive status Physical Exam Physical Exam: Lying in bed without any acute distress Constitutional: well developed, well nourished, + ill appearing and average body habitus Eyes: PERRL, conjunctivae normal, anicteric sclerae ENMT: external ear and nose normal, oropharynx normal Neck: trachea midline, no thyromegaly Respiratory: no respiratory distress Auscultation: + diminished lung sounds and + crackles ( minimal crackles at the bases) Cardiovascular: Rate/Rhythm: regular rate and regular rhythm; not tachycardic Heart Sounds: normal S1 and normal S2; no murmur Extremities: no edema Gastrointestinal (Abdomen): Inspection/Auscultation: + abdomen distended and normal bowel sounds Percussion/Palpation: + abdomen tender ( mildly tender) and abdomen soft Musculoskeletal: No acute arthritis involving any of the joint Neurologic: normal touch/pain/proprioception and moves all extremities; no focal motor deficits Lymphatic: no cervical or axillary lymphadenopathy Results & Data Results & Data Vital Signs (Past 12 Hours) Vital Signs Temp Pulse Resp BP Pulse Ox O2 Del Method O2 Flow Rate 01/31/24 12:09 36.5 C 90 18 135/75 92 Nasal Cannula 3 01/31/24 07:33 36.9 C 92 H 16 101/60 92 Room Air Laboratory Results Short CBC 01/31/24 Range/Units 07:15 WBC 11.54 H (4.8-10.8) K/ul Hgb 8.8 L (14.0-18.0) g/dl Hct 27.1 L (42.0-52.0) % Plt Count 139 (130-400) K/uL BMP 01/31/24 07:15 Sodium 138 Potassium 4.2 Chloride 108 H Carbon Dioxide 21 BUN 34 H Creatinine 2.19 H D Glucose 249 H Calcium 7.8 L Liver Function 01/31/24 Range/Units 07:15 Total Bilirubin 0.5 (0.2-1.0) mg/dl AST 69 H (13-39) U/L ALT 121 H (7-52) U/L Alkaline Phosphatase 163 H (34-104) U/L Albumin 2.5 L (3.4-5.0) gm/dl Medications Administered Current Inpatient Medications Acetaminophen (Acetaminophen 500 Mg Tab) 500 mg PO Q6H PRN PRN Reason: fever/pain Stop: 02/25/24 20:54 Last Admin: 01/31/24 03:32 Dose: 500 mg Dextrose (Dextrose 50% 50 Ml Syringe) 25 - 50 ml IV UD PRN; Protocol PRN Reason: Hypoglycemia Protocol Stop: 02/25/24 21:44 Donepezil HCl (Donepezil Hcl 10 Mg Tab) 10 mg PO QDD [facility] Stop: 02/26/24 16:29 Last Admin: 01/30/24 19:52 Dose: 10 mg Famotidine (Famotidine 20 Mg Tab) 20 mg PO BID [facility] Stop: 02/25/24 21:44 Last Admin: 01/31/24 09:22 Dose: 20 mg Finasteride (Finasteride 5 Mg Tab) 5 mg PO QAM [facility] Stop: 02/26/24 08:59 Last Admin: 01/31/24 09:22 Dose: 5 mg Gabapentin (Gabapentin 100 Mg Cap) 200 mg PO TID [facility] Stop: 02/26/24 08:59 Last Admin: 01/31/24 13:49 Dose: 200 mg Glucagon (Glucagon For Inj 1 Mg Vial) 1 mg SQ UD PRN; Protocol PRN Reason: Hypoglycemia Protocol Stop: 02/25/24 21:44 Glucose (Glucose 40% Gel 15 Gm Tube) 15 - 30 gm PO UD PRN; Protocol PRN Reason: Hypoglycemia Protocol Stop: 02/25/24 21:44 Glucose (Glucose 10 Tab/Tube) 4 - 8 tab PO UD PRN; Protocol PRN Reason: Hypoglycemia Protocol Stop: 02/25/24 21:44 Hydromorphone HCl (Hydromorphone Inj 0.5 Mg/0.5 Ml Syr) 0.25 mg IV Q4H PRN PRN Reason: Pain Stop: 02/09/24 20:54 Promethazine HCl (Phenergan) 6.25 mg in 50.25 mls @ 201 mls/hr IV Q6H PRN PRN Reason: Nausea And Vomiting Stop: 02/25/24 20:54 Ampicillin Sodium/Sulbactam Sodium (Unasyn) 3,000 mg in 100 mls @ 200 mls/hr IV Q12H [facility] Stop: 02/06/24 14:44 Last Infusion: 01/31/24 14:28 Dose: Infused Sodium Chloride (Nss) 1,000 mls @ 80 mls/hr IV .[id number] [facility] Stop: 01/31/24 19:32 Last Admin: 01/31/24 06:28 Dose: 80 mls/hr Insulin Aspart (Insulin Aspart Per Unit Charge) 0 units SC ACHS [facility] Stop: 02/29/24 22:29 Last Admin: 01/31/24 12:18 Dose: 16 units Insulin Glargine (Lantus Per Unit Charge) 15 units SQ BID [facility]; Protocol Stop: 03/01/24 08:59 Metoprolol Tartrate (Metoprolol Tartrate 25 Mg Tab) 12.5 mg PO BID [facility] Stop: 02/25/24 21:44 Last Admin: 01/31/24 09:23 Dose: 12.5 mg Miscellaneous (Order Awaiting Action: Non-Formulary Medication (Brimonidine- Timolol [Combigan] 0.2-0.5 %) 1 each N/A QS [facility] Stop: 02/26/24 07:59 Last Admin: 01/31/24 15:00 Dose: Not Given Miscellaneous (Carbohydrates For Hypoglycemia ) 15 - 30 gm PO UD PRN PRN Reason: Hypoglycemia Treatment Stop: 02/25/24 21:44 Last Admin: 01/27/24 16:52 Dose: 15 gm Miscellaneous Information (Pharmacy Glycemic Mgmt Consult) 1 each N/A UD PRN; Protocol PRN Reason: Consult Stop: 02/28/24 11:30 Oxycodone HCl (Oxycodone Hcl Ir 5 Mg Tab (Immediate Release)) 5 mg PO Q4H PRN PRN Reason: Moderate Pain (Scale 4, 5, 6) Stop: 02/13/24 19:32 Last Admin: 01/30/24 19:51 Dose: 5 mg Pantoprazole Sodium (Pantoprazole 40 Mg Tab) 40 mg PO QAM [facility] Stop: 02/26/24 08:59 Last Admin: 01/31/24 09:22 Dose: 40 mg Senna/Docusate Sodium (Docusate Sodium/Senna 50/8.6mg Tab) [facility] [place] Stop: 02/25/24 23:29 Last Admin: 01/31/24 10:04 Dose: 1 tab Sertraline HCl (Sertraline Hcl 50 Mg Tablet) 25 mg PO QAM [facility] Stop: 02/26/24 08:59 Last Admin: 01/31/24 09:24 Dose: 25 mg Terazosin HCl (Terazosin Hcl 1 Mg Cap) 2 mg PO HS [facility] Stop: 02/25/24 21:34 Last Admin: 01/30/24 21:42 Dose: 2 mg Tramadol HCl (Tramadol Hcl 50 Mg Tablet) 25 - 50 mg PO Q4H PRN PRN Reason: Pain Stop: 02/25/24 20:54
[2024-02-01 07:09] LABS: Hematocrit (blood only) 28.8 % (42.0-52.0); Hemoglobin 9.2 g/dl (14.0-18.0); Mean Corpuscular Hemoglobin 28.8 pg (25.0-34.0); Mean Corpuscular Hgb Conc 31.9 g/dL (32.0-36.0); Mean Corpuscular Volume 90.3 fL (80.0-100.0); Mean Platelet Volume 11.5 fL (9.4-12.4); Platelet Count 168 K/uL (130-400); RDW Coefficient of Variation 15.3 % (11.5-14.5); RDW Standard Deviation 50.9 fL (36.4-46.3); Red Blood Count 3.19 M/uL (4.70-6.10); White Blood Count 11.64 K/ul (4.8-10.8)
[2024-02-01 07:10] LABS: Basophils # (auto) 0.02 K/uL (0.00-0.20); Basophils % (auto) 0.2 %; Eosinophils # (auto) 0.16 K/uL (0.00-0.50); Eosinophils % (auto) 1.4 %; Immature Granulocytes # (auto) 0.05 K/uL (0.01-0.20); Immature Granulocytes % (auto) 0.4 %; Lymphocytes # (auto) 0.79 K/uL (1.20-3.40); Lymphocytes % (auto) 6.8 %; Monocytes # (auto) 0.79 K/uL (0.11-0.59); Monocytes % (auto) 6.8 %; Neutrophils # (auto) 9.83 K/uL (1.40-6.50); Neutrophils % (auto) 84.4 %; Ovalocytes 1+; Platelet Estimate Normal (Normal)
[2024-02-01 07:14] LABS: Alanine Aminotransferase 97 U/L (7-52); Albumin Globulin Ratio 0.8 (0.9-2); Albumin Level 2.7 gm/dl (3.4-5.0); Alkaline Phosphatase 159 U/L (34-104); Anion Gap 6 (3-11); BUN Creatinine Ratio 14.9 (10-20); Bilirubin,Total 0.6 mg/dl (0.2-1.0); Blood Urea Nitrogen 39 mg/dl (6-23); Calcium 8.1 mg/dl (8.6-10.3); Carbon Dioxide 24 mmol/L (21-32); Chloride 107 mmol/L (98-107); Creatinine Clr Calc Pharmacy 18.9 ml/min; Globulin 3.4 gm/dl (2.5-4.0); Glucose 65 mg/dl (70-99(Fasting)); Sodium 137 mmol/L (136-145); Total Protein 6.1 gm/dl (6.0-8.3)
[2024-02-01 08:15] LABS: Potassium 3.7 mmol/L (3.5-5.1)
[2024-02-01] MEDS ORDERED: LANTUS PER UNIT CHARGE SQ SCH (09:00)
[2024-02-01] MEDS: LANTUS PER UNIT CHARGE SQ SCH ×2 (09:21→21:12)
--- NOTE | 2024-02-01 09:35 | Surgery Progress Note ---
Date of Service February 01, 2024 Assessment & Plan (1) Choledocholithiasis: Plan: POD#2 lap aubrey, POD#4 ERCP with GI WBC 11.6, Hbg stable at 9.2, LFTs downtrending. Vitals stable Some post op pain to be expected Otherwise tolerating a diet, no nausea/vomiting SAMEER drain serosang. keep in place, will d/c drain on day of dispo Likely needs another day in the hospital No need for abx from our standpoint at time of d/c Will need f/u in the office in 1-[address] rice Pt seen/examined with dr. castillo Admission and Anticipated Discharge Date Admission Date: January 27, 2024 Supervising Physician Co-Signing Physician Notes Doing well Tolerating diet Leave drain in place He should be stable for discharge from surgical standpoint tomorrow We will remove the drain prior to discharge Subjective Patient resting in bed. Some complaints of pain with palpation of abdomen. Otherwise no distress and family reports patient is eating well with no nausea/vomiting. Physical Exam Physical Exam: awake, no distress Respiratory: normal respiratory effort Gastrointestinal (Abdomen): Inspection/Auscultation: + abdomen distended (mild), + abdominal surgical incision (c/d/i with no signs of infection ) and + abdominal surgical drain present (serosang. ) Percussion/Palpation: + abdomen tender (expected rommel incisional discomfort ) and abdomen soft Results & Data Vital Signs (Past 12 Hours) Vital Signs Temp Pulse Resp BP Pulse Ox O2 Del Method 02/01/24 07:41 98.6 F 74 16 153/71 H 93 Room Air PG Care Time/CCT Total # of Minutes Spent Total Time Spent with Patient: Total time spent is greater than 50% in coordination of care (as documented) at patient's floor/unit and/or counseling patient: Coding Level of Care Code 48631 Post Operative Follow-Up Diagnoses Choledocholithiasis K80.50
--- NOTE | 2024-02-01 14:16 | Pharmacy Report ---
Pharmacy Glycemic Short Note 2 - Date of Service February 01, 2024 - Glycemic Short BSG Results (Last 24 hours): 01/31/24 01/31/24 02/01/24 16:53 20:46 06:23 Glucose 65 L POC Glucose 113 H 95 02/01/24 02/01/24 07:43 11:39 Glucose POC Glucose 76 110 H OUTPATIENT ANTIDIABETIC REGIMEN: * Lantus 30 units SQ q HS * Humalog--12 units at breakfast, 10 units at lunch, 13 units at supper HbA1c 7.8% on 01/27/24 ASSESSMENT: 01/31: * Patient received total of 61 units of insulin yesterday, of which 30 units were basal insulin * Fasting BSG low 65 mg/dL - will scale back on basal today ~15-25%. Patient with no PO intake this AM. 01/30: * Blood sugars well-controlled yesterday on POD #0 s/p laparoscopic cholecystectomy * Clear liquid diet this morning, advanced to T2DM low fat * Blood sugars trended up this morning (270 mg/dL) - will increase basal and tighten Novolog today * 311 mg/dL at lunch -> will give one-time IV insulin bolus 01/29: * Patient is NPO for laparoscopic cholecystectomy. BSGs in the low 100s. Will decrease basal insulin for this evening. * Will loosen Novolog parameters given post prandial BSGs were trending downward last evening. 01/28: * 88 year old male admitted 01/25 with abdominal pain secondary to choledocholithiasis. PMH of CKD (SCr 1.63 today) and T2DM. Pharmacy was consulted for glycemic management. * Patient usually receives a total of 65 units of insulin daily as an outpatient. 5 units of insulin were give yesterday (all were bolus) * Fasting BSG today was 283mg/dl and mino to 358mg/dl with lunch today. 5 units of Lantus were already given this morning so an additional 25 units were ordered for this afternoon (10units x 1 then 15 units x 1). Goal is to transition him back to home dose of lantus HS. * Bolus insulin parameters were tightened starting with lunch today. PLAN FOR INPATIENT GLYCEMIC CONTROL: * Basal insulin * Lantus 10 units x 1 * Lantus 12-15 units HS * Bolus insulin * NovoLog per scale ACHS or Q6hrs while NPO * Goal Range: Low 110 mg/dL - High 140 mg/dL * Correction Factor: 30 mg/dL/unit * Nutritional / Prandial insulin per carb ratio of 1 unit per 9 grams CHO consumed
--- NOTE | 2024-02-01 15:01 | Hospitalist Progress Note ---
Date of Service February 01, 2024 Assessment & Plan (1) Choledocholithiasis: Plan: 88-year-old male with PMH of CAD, HTN, HLD, T2DM insulin requiring, CKD [baseline creatinine of 1.5], chronic anemia [baseline hemoglobin of 11], dementia, essential tremors, peripheral neuropathy, GERD, macular degeneration, glaucoma presented to the ED 01/25 with complaint of abdominal pain for 1 day, no shortness of breath or cough or nausea or fever or chills. He is being managed for the following: Abdominal pain secondary to choledocholithiasis Patient presented with abdominal pain of 1 day duration. Admitting CXR with no acute finding. Admitting CTAP with cholelithiasis and choledocholithiasis without ductal dilatation. Concern for cystitis. UA negative for UTI. Admitting gallbladder ultrasound with no evidence of cholecystitis. Ch olelithiasis noted. Admitting LFT elevated. Status post ERCP 01/28/2024: Filling defect noted on cholangiogram, sphincterotomy and bile duct swept with balloon. GI on board, Appreciate recommendation. Appreciate surgery input and recommendation Status post laparoscopic cholecystectomy on 01/30/2024 Remains stable following the procedure and has minimal abdominal pain As per surgery likely discharge tomorrow if remains stable Will need to have PT and OT evaluation prior to discharge- will discontinue antibiotic tomorrow He has been tolerating diet Remains generally weak and lethargic without any other acute symptoms Minimal abdominal tenderness on examination but bowel sound is normal Abnormal CTAP, cystitis: UA negative for UTI. Acute kidney injury over CKD stage III: Baseline creatinine of 1.5, admitting creatinine 1.87. Creatinine up trended today, initiated gentle IV fluid, labs in AM. Avoid nephrotoxic's. Kidney function remains stable with a creatinine of 2.61 we will try some intravenous fluid and monitor PRP Other chronic medical conditions: Continue with/resume home meds as and when abl e. Presumptive CAD as per records on aspirin prophylaxis hypertension, stable hyperlipidemia, on statin Rx DM2 insulin requiring, reasonable control given chronic kidney dysfunction, hemoglobin A1c of 8.27 September 2023 . SSI chronic anemia, hemoglobin at baseline hx dementia/essential tremors/peripheral neuropathy DVT prophylaxis. SCDs re: possible procedure Full code pt/ot cm to assist w/ dc plan. Patient daughter Ms. Isadroa Aguiar, contact # [phone]. Text document was generated using [employer] voice recognition software. It may contain grammatical or spelling errors. Kindly contact undersigned for clarification of any documentation item in question. Admission and Anticipated Discharge Date Admission Date: January 27, 2024 Subjective 01/31/2024 The patient was seen and examined in medical floor Denies any acute distress or pain, no nausea and/or vomiting 02/01/2024 The patient was seen and examined in medical floor He remains pleasantly confused but not in any acute distress Remains weak and lethargic Review of Systems Review of Systems: Could not be reliably obtained secondary to dementia Physical Exam Physical Exam: Lying in bed without any acute distress Constitutional: well developed, well nourished, + ill appearing and average body habitus Eyes: PERRL, conjunctivae normal, anicteric sclerae ENMT: external ear and nose normal, oropharynx normal Neck: trachea midline, no thyromegaly Respiratory: no respiratory distress Auscultation: + diminished lung sounds and + crackles ( minimal crackles at the bases) Cardiovascular: Rate/Rhythm: regular rate and regular rhythm; not tachycardic Heart Sounds: normal S1 and normal S2; no murmur Extremities: no edema Gastrointestinal (Abdomen): Inspection/Auscultation: + abdomen distended and normal bowel sounds Percussion/Palpation: + abdomen tender ( mildly tender) and abdomen soft Neurologic: normal touch/pain/proprioception and moves all extremities; no focal motor deficits Lymphatic: no cervical or axillary lymphadenopathy Results & Data Results & Data Vital Signs (Past 12 Hours) Vital Signs Temp Pulse Resp BP Pulse Ox O2 Del Method 02/01/24 07:41 37.0 C 74 16 153/71 H 93 Room Air Laboratory Results Short CBC 02/01/24 Range/Units 06:23 WBC 11.64 H (4.8-10.8) K/ul Hgb 9.2 L (14.0-18.0) g/dl Hct 28.8 L (42.0-52.0) % Plt Count 168 (130-400) K/uL BMP 02/01/24 02/01/24 06:23 07:19 Sodium 137 Potassium TNP 3.7 Chloride 107 Carbon Dioxide 24 BUN 39 H Creatinine 2.61 H D Glucose 65 L Calcium 8.1 L Liver Function 02/01/24 02/01/24 Range/Units 06:23 07:19 Total Bilirubin 0.6 (0.2-1.0) mg/dl AST TNP 43 H ALT 97 H (7-52) U/L Alkaline Phosphatase 159 H (34-104) U/L Albumin 2.7 L (3.4-5.0) gm/dl Medications Administered Current Inpatient Medications Acetaminophen (Acetaminophen 500 Mg Tab) 500 mg PO Q6H PRN PRN Reason: fever/pain Stop: 02/25/24 20:54 Last Admin: 02/01/24 09:20 Dose: 500 mg Dextrose (Dextrose 50% 50 Ml Syringe) 25 - 50 ml IV UD PRN; Protocol PRN Reason: Hypoglycemia Protocol Stop: 02/25/24 21:44 Donepezil HCl (Donepezil Hcl 10 Mg Tab) 10 mg PO QDD [facility] Stop: 02/26/24 16:29 Last Admin: 01/31/24 17:36 Dose: 10 mg Famotidine (Famotidine 20 Mg Tab) 20 mg PO BID [facility] Stop: 02/25/24 21:44 Last Admin: 02/01/24 09:22 Dose: 20 mg Finasteride (Finasteride 5 Mg Tab) 5 mg PO QAM [facility] Stop: 02/26/24 08:59 Last Admin: 02/01/24 09:22 Dose: 5 mg Gabapentin (Gabapentin 100 Mg Cap) 200 mg PO TID [facility] Stop: 02/26/24 08:59 Last Admin: 02/01/24 13:49 Dose: 200 mg Glucagon (Glucagon For Inj 1 Mg Vial) 1 mg SQ UD PRN; Protocol PRN Reason: Hypoglycemia Protocol Stop: 02/25/24 21:44 Glucose (Glucose 40% Gel 15 Gm Tube) 15 - 30 gm PO UD PRN; Protocol PRN Reason: Hypoglycemia Protocol Stop: 02/25/24 21:44 Glucose (Glucose 10 Tab/Tube) 4 - 8 tab PO UD PRN; Protocol PRN Reason: Hypoglycemia Protocol Stop: 02/25/24 21:44 Hydromorphone HCl (Hydromorphone Inj 0.5 Mg/0.5 Ml Syr) 0.25 mg IV Q4H PRN PRN Reason: Pain Stop: 02/09/24 20:54 Promethazine HCl (Phenergan) 6.25 mg in 50.25 mls @ 201 mls/hr IV Q6H PRN PRN Reason: Nausea And Vomiting Stop: 02/25/24 20:54 Ampicillin Sodium/Sulbactam Sodium (Unasyn) 3,000 mg in 100 mls @ 200 mls/hr IV Q12H [facility] Stop: 02/06/24 14:44 Last Admin: 02/01/24 14:38 Dose: 200 mls/hr Insulin Aspart (Insulin Aspart Per Unit Charge) 0 units SC ACHS [facility] Stop: 02/29/24 22:29 Last Admin: 02/01/24 12:48 Dose: 4 units Insulin Glargine (Lantus Per Unit Charge) 10 units SQ DAILY [facility]; Protocol Stop: 03/02/24 08:59 Last Admin: 02/01/24 09:21 Dose: 10 units Insulin Glargine (Lantus Per Unit Charge) 0 units SQ HS [facility]; Protocol Stop: 03/02/24 20:59 Metoprolol Tartrate (Metoprolol Tartrate 25 Mg Tab) 12.5 mg PO BID [facility] Stop: 02/25/24 21:44 Last Admin: 02/01/24 09:23 Dose: 12.5 mg Miscellaneous (Order Awaiting Action: Non-Formulary Medication (Brimonidine- Timolol [Combigan] 0.2-0.5 %) 1 each N/A QS [facility] Stop: 02/26/24 07:59 Last Admin: 02/01/24 08:46 Dose: Not Given Miscellaneous (Carbohydrates For Hypoglycemia ) 15 - 30 gm PO UD PRN PRN Reason: Hypoglycemia Treatment Stop: 02/25/24 21:44 Last Admin: 01/27/24 16:52 Dose: 15 gm Miscellaneous Information (Pharmacy Glycemic Mgmt Consult) 1 each N/A UD PRN; Protocol PRN Reason: Consult Stop: 02/28/24 11:30 Oxycodone HCl (Oxycodone Hcl Ir 5 Mg Tab (Immediate Release)) 5 mg PO Q4H PRN PRN Reason: Moderate Pain (Scale 4, 5, 6) Stop: 02/13/24 19:32 Last Admin: 01/30/24 19:51 Dose: 5 mg Pantoprazole Sodium (Pantoprazole 40 Mg Tab) 40 mg PO QAM [facility] Stop: 02/26/24 08:59 Last Admin: 02/01/24 09:23 Dose: 40 mg Senna/Docusate Sodium (Docusate Sodium/Senna 50/8.6mg Tab) 1 tab PO QAM [facility] Stop: 02/25/24 23:29 Last Admin: 02/01/24 09:20 Dose: 1 tab Sertraline HCl (Sertraline Hcl 50 Mg Tablet) 25 mg PO QAM [facility] Stop: 02/26/24 08:59 Last Admin: 02/01/24 09:22 Dose: 25 mg Terazosin HCl (Terazosin Hcl 1 Mg Cap) 2 mg PO HS [facility] Stop: 02/25/24 21:34 Last Admin: 01/31/24 20:47 Dose: 2 mg Tramadol HCl (Tramadol Hcl 50 Mg Tablet) 25 - 50 mg PO Q4H PRN PRN Reason: Pain Stop: 02/25/24 20:54
[2024-02-01] MEDS: SODIUM CHLORIDE 0.9% 1,000 ML IV SCH (15:23)
[2024-02-02 06:33] LABS: Calcium 7.1 mg/dl (8.6-10.3); Potassium 4.3 mmol/L (3.5-5.1)
[2024-02-02 06:38] LABS: BUN Creatinine Ratio 16.6 (10-20)
--- NOTE | 2024-02-02 09:04 | Surgery Progress Note ---
Date of Service February 02, 2024 Assessment & Plan (1) Hx laparoscopic cholecystectomy: Plan: POD 3 lap aubrey doing well from surgical standpoint VSS SAMEER drain serosang. keep in place until prior to d/c then cover with dry 2x2 and tape No need for abx from our standpoint at time of d/c Will need f/u in the office in 1-[address] rice Pt seen/examined with dr. castillo Admission and Anticipated Discharge Date Admission Date: January 27, 2024 Physical Exam Constitutional: comfortable Respiratory: no respiratory distress Cardiovascular: Rate/Rhythm: regular rate Gastrointestinal (Abdomen): Inspection/Auscultation: + abdominal surgical incision and + abdominal surgical drain present Percussion/Palpation: abdomen soft Results & Data Vital Signs (Past 12 Hours) Vital Signs Temp Pulse Resp BP Pulse Ox O2 Del Method 02/02/24 07:33 97.7 F 74 16 144/63 H 96 Room Air 02/01/24 21:23 Room Air PG Care Time/CCT Total # of Minutes Spent Total Time Spent with Patient: Total time spent is greater than 50% in coordination of care (as documented) at patient's floor/unit and/or counseling patient: Coding Level of Care Code 30783 Post Operative Follow-Up Diagnoses Hx laparoscopic cholecystectomy Z90.49
--- NOTE | 2024-02-02 13:37 | Hospitalist Progress Note ---
Date of Service February 02, 2024 Assessment & Plan (1) Choledocholithiasis: Plan: 88-year-old male with PMH of CAD, HTN, HLD, T2DM insulin requiring, CKD [baseline creatinine of 1.5], chronic anemia [baseline hemoglobin of 11], dementia, essential tremors, peripheral neuropathy, GERD, macular degeneration, glaucoma presented to the ED 01/25 with complaint of abdominal pain for 1 day, no shortness of breath or cough or nausea or fever or chills. He is being managed for the following: Abdominal pain secondary to choledocholithiasis Patient presented with abdominal pain of 1 day duration. Admitting CXR with no acute finding. Admitting CTAP with cholelithiasis and choledocholithiasis without ductal dilatation. Concern for cystitis. UA negative for UTI. Admitting gallbladder ultrasound with no evidence of cholecystitis. Ch olelithiasis noted. Admitting LFT elevated. Status post ERCP 01/28/2024: Filling defect noted on cholangiogram, sphincterotomy and bile duct swept with balloon. GI on board, Appreciate recommendation. Appreciate surgery input and recommendation Status post laparoscopic cholecystectomy on 01/30/2024 Remains stable following the procedure and has minimal abdominal pain As per surgery likely discharge tomorrow if remains stable Will need to have PT and OT evaluation prior to discharge- will discontinue antibiotic tomorrow He has been tolerating diet Remains generally weak and lethargic without any other acute symptoms Minimal abdominal tenderness on examination but bowel sound is normal Remains medically stable and cleared by the surgeon for discharge Denies any significant symptoms Discussed with the family members and he will be discharged home tomorrow Abnormal CTAP, cystitis: UA negative for UTI. Acute kidney injury over CKD stage III: Baseline creatinine of 1.5, admitting creatinine 1.87. Creatinine up trended today, initiated gentle IV fluid, labs in AM. Avoid nephrotoxic's. Kidney function remains stable with a creatinine of 2.61 we will try some intravenous fluid and monitor PRP Other chronic medical conditions: Continue with/resume home meds as and when able. Presumptive CAD as per records on aspirin prophylaxis hypertension, stable hyperlipidemia, on statin Rx DM2 insulin requiring, reasonable control given chronic kidney dysfunction, hemoglobin A1c of 8.27 September 2023 . SSI chronic anemia, hemoglobin at baseline hx dementia/essential tremors/peripheral neuropathy DVT prophylaxis. SCDs re: possible procedure Full code pt/ot cm to assist w/ dc plan. Patient daughter Ms. Isadora Aguiar, contact # [phone]. Text document was generated using [employer] voice recognition software. It may contain grammatical or spelling errors. Kindly contact undersigned for clarification of any documentation item in question. Admission and Anticipated Discharge Date Admission Date: January 27, 2024 Subjective 01/31/2024 The patient was seen and examined in medical floor Denies any acute distress or pain, no nausea and/or vomiting 02/01/2024 The patient was seen and examined in medical floor He remains pleasantly confused but not in any acute distress Remains weak and lethargic 02/02/2024 The patient was seen and examined in medical floor in presence of the family membersthe daughter and the He has been feeling much better today and has been tolerating diet Denies to have any significant discomfort except some abdominal pain Review of Systems Review of Systems: Could not be reliably obtained secondary to dementia Physical Exam Physical Exam: Lying in bed without any acute distress Constitutional: well developed, well nourished, + ill appearing and average body habitus Eyes: PERRL, conjunctivae normal, anicteric sclerae ENMT: external ear and nose normal, oropharynx normal Neck: trachea midline, no thyromegaly Respiratory: no respiratory distress Auscultation: + diminished lung sounds and + crackles ( minimal crackles at the bases) Cardiovascular: Rate/Rhythm: regular rate and regular rhythm; not tachycardic Heart Sounds: normal S1 and normal S2; no murmur Extremities: no edema Gastrointestinal (Abdomen): Inspection/Auscultation: + abdomen distended and normal bowel sounds Percussion/Palpation: + abdomen tender ( mildly tender) and abdomen soft Neurologic: normal touch/pain/proprioception and moves all extremities; no focal motor deficits Lymphatic: no cervical or axillary lymphadenopathy Results & Data Results & Data Vital Signs (Past 12 Hours) Vital Signs Temp Pulse Resp BP Pulse Ox O2 Del Method 02/02/24 10:21 Room Air 02/02/24 07:33 36.5 C 74 16 144/63 H 96 Room Air Laboratory Results [facility] 02/02/24 05:52 Sodium 141 Potassium 4.3 Chloride 115 H Carbon Dioxide 23 BUN 39 H Creatinine 2.35 H Glucose 77 Calcium 7.1 L Medications Administered Current Inpatient Medications Acetaminophen (Acetaminophen 500 Mg Tab) 500 mg PO Q6H PRN PRN Reason: fever/pain Stop: 02/25/24 20:54 Last Admin: 02/01/24 09:20 Dose: 500 mg Dextrose (Dextrose 50% 50 Ml Syringe) 25 - 50 ml IV UD PRN; Protocol PRN Reason: Hypoglycemia Protocol Stop: 02/25/24 21:44 Donepezil HCl (Donepezil Hcl 10 Mg Tab) 10 mg PO QDD [facility] Stop: 02/26/24 16:29 Last Admin: 02/01/24 17:05 Dose: 10 mg Famotidine (Famotidine 20 Mg Tab) 20 mg PO BID [facility] Stop: 02/25/24 21:44 Last Admin: 02/02/24 08:59 Dose: 20 mg Finasteride (Finasteride 5 Mg Tab) 5 mg PO QAM [facility] Stop: 02/26/24 08:59 Last Admin: 02/02/24 08:58 Dose: 5 mg Gabapentin (Gabapentin 100 Mg Cap) 200 mg PO TID [facility] Stop: 02/26/24 08:59 Last Admin: 02/02/24 13:26 Dose: 200 mg Glucagon (Glucagon For Inj 1 Mg Vial) 1 mg SQ UD PRN; Protocol PRN Reason: Hypoglycemia Protocol Stop: 02/25/24 21:44 Glucose (Glucose 40% Gel 15 Gm Tube) 15 - 30 gm PO UD PRN; Protocol PRN Reason: Hypoglycemia Protocol Stop: 02/25/24 21:44 Glucose (Glucose 10 Tab/Tube) 4 - 8 tab PO UD PRN; Protocol PRN Reason: Hypoglycemia Protocol Stop: 02/25/24 21:44 Hydromorphone HCl (Hydromorphone Inj 0.5 Mg/0.5 Ml Syr) 0.25 mg IV Q4H PRN PRN Reason: Pain Stop: 02/09/24 20:54 Promethazine HCl (Phenergan) 6.25 mg in 50.25 mls @ 201 mls/hr IV Q6H PRN PRN Reason: Nausea And Vomiting Stop: 02/25/24 20:54 Ampicillin Sodium/Sulbactam Sodium (Unasyn) 3,000 mg in 100 mls @ 200 mls/hr IV Q12H [facility] Stop: 02/06/24 14:44 Last Infusion: 02/02/24 05:24 Dose: Infused Sodium Chloride (Nss) 1,000 mls @ 80 mls/hr IV .[id number] [facility] Stop: 02/02/24 16:14 Last Admin: 02/02/24 04:23 Dose: 80 mls/hr Insulin Aspart (Insulin Aspart Per Unit Charge) 0 units SC ACHS [facility] Stop: 02/29/24 22:29 Last Admin: 02/02/24 12:36 Dose: 3 units Insulin Glargine (Lantus Per Unit Charge) 0 units SQ HS [facility]; Protocol Stop: 03/02/24 20:59 Last Admin: 02/01/24 21:12 Dose: 12 units Metoprolol Tartrate (Metoprolol Tartrate 25 Mg Tab) 12.5 mg PO BID [facility] Stop: 02/25/24 21:44 Last Admin: 02/02/24 08:59 Dose: 12.5 mg Miscellaneous (Order Awaiting Action: Non-Formulary Medication (Brimonidine- Timolol [Combigan] 0.2-0.5 %) 1 each N/A QS [facility] Stop: 02/26/24 07:59 Last Admin: 02/02/24 09:05 Dose: Not Given Miscellaneous (Carbohydrates For Hypoglycemia ) 15 - 30 gm PO UD PRN PRN Reason: Hypoglycemia Treatment Stop: 02/25/24 21:44 Last Admin: 02/02/24 07:58 Dose: 15 gm Miscellaneous Information (Pharmacy Glycemic Mgmt Consult) 1 each N/A UD PRN; Protocol PRN Reason: Consult Stop: 02/28/24 11:30 Oxycodone HCl (Oxycodone Hcl Ir 5 Mg Tab (Immediate Release)) 5 mg PO Q4H PRN PRN Reason: Moderate Pain (Scale 4, 5, 6) Stop: 02/13/24 19:32 Last Admin: 01/30/24 19:51 Dose: 5 mg Pantoprazole Sodium (Pantoprazole 40 Mg Tab) 40 mg PO QAM [facility] Stop: 02/26/24 08:59 Last Admin: 02/02/24 08:59 Dose: 40 mg Senna/Docusate Sodium (Docusate Sodium/Senna 50/8.6mg Tab) 1 tab PO QAM [facility] Stop: 02/25/24 23:29 Last Admin: 02/02/24 09:09 Dose: 1 tab Sertraline HCl (Sertraline Hcl 50 Mg Tablet) 25 mg PO QAM [facility] Stop: 02/26/24 08:59 Last Admin: 02/02/24 08:59 Dose: 25 mg Terazosin HCl (Terazosin Hcl 1 Mg Cap) 2 mg PO HS [facility] Stop: 02/25/24 21:34 Last Admin: 02/01/24 20:23 Dose: 2 mg Tramadol HCl (Tramadol Hcl 50 Mg Tablet) 25 - 50 mg PO Q4H PRN PRN Reason: Pain Stop: 02/25/24 20:54 Follow-up symptoms
--- NOTE | 2024-02-02 14:22 | Pharmacy Report ---
Pharmacy Glycemic Short Note 2 - Date of Service February 02, 2024 - Glycemic Short BSG Results (Last 24 hours): 02/01/24 02/01/24 02/02/24 16:28 20:36 05:52 Glucose 77 POC Glucose 76 144 H 02/02/24 02/02/24 02/02/24 07:50 07:51 07:53 Glucose POC Glucose 54 L* 54 L* 51 L* 02/02/24 02/02/24 08:12 11:33 Glucose POC Glucose 82 155 H OUTPATIENT ANTIDIABETIC REGIMEN: * Lantus 30 units SQ q HS * Humalog--12 units at breakfast, 10 units at lunch, 13 units at supper HbA1c 7.8% on 01/27/24 ASSESSMENT: 02/01: * Patient received total of 27 units of insulin yesterday, of which 22 units were basal - was reduced 25% due to AM BSG 65 mg/dL * Despite basal insulin reduction yesterday, hypoglycemic this AM 54 mg/dL - treated per hypoglycemia protocol and trending up to 82 mg/dL * Will adjust scale for basal insulin this evening and decrease 50% 01/31: * Patient received total of 61 units of insulin yesterday, of which 30 units were basal insulin * Fasting BSG low 65 mg/dL - will scale back on basal today ~15-25%. Patient with no PO intake this AM. 01/30: * Blood sugars well-controlled yesterday on POD #0 s/p laparoscopic c holecystectomy * Clear liquid diet this morning, advanced to T2DM low fat * Blood sugars trended up this morning (270 mg/dL) - will increase basal and tighten Novolog today * 311 mg/dL at lunch -> will give one-time IV insulin bolus 01/29: * Patient is NPO for laparoscopic cholecystectomy. BSGs in the low 100s. Will decrease basal insulin for this evening. * Will loosen Novolog parameters given post prandial BSGs were trending downward last evening. 01/28: * 88 year old male admitted 01/25 with abdominal pain secondary to choledocholithiasis. PMH of CKD (SCr 1.63 today) and T2DM. Pharmacy was consulted for glycemic management. * Patient usually receives a total of 65 units of insulin daily as an outpatient. 5 units of insulin were give yesterday (all were bolus) * Fasting BSG today was 283mg/dl and mino to 358mg/dl with lunch today. 5 units of Lantus were already given this morning so an additional 25 units were ordered for this afternoon (10units x 1 then 15 units x 1). Goal is to transition him back to home dose of lantus HS. * Bolus insulin parameters were tightened starting with lunch today. PLAN FOR INPATIENT GLYCEMIC CONTROL: * Basal insulin * Lantus 6-8 units hs * Bolus insulin * NovoLog per scale ACHS or Q6hrs while NPO * Goal Range: Low 110 mg/dL - High 140 mg/dL * Correction Factor: 30 mg/dL/unit * Nutritional / Prandial insulin per carb ratio of 1 unit per 9 grams CHO consumed
[2024-02-03 08:07] VITALS: RESP 16; TEMP 97.5; O2SAT 96
[2024-02-03 08:33] LABS: Basophils # (auto) 0.03 K/uL (0.00-0.20); Basophils % (auto) 0.4 %; Eosinophils # (auto) 0.21 K/uL (0.00-0.50); Eosinophils % (auto) 2.5 %; Hematocrit (blood only) 26.3 % (42.0-52.0); Hemoglobin 8.4 g/dl (14.0-18.0); Immature Granulocytes # (auto) 0.03 K/uL (0.01-0.20); Immature Granulocytes % (auto) 0.4 %; Mean Corpuscular Hgb Conc 31.9 g/dL (32.0-36.0); Mean Corpuscular Volume 90.7 fL (80.0-100.0); Monocytes # (auto) 0.61 K/uL (0.11-0.59); Monocytes % (auto) 7.2 %; Neutrophils # (auto) 6.47 K/uL (1.40-6.50); Neutrophils % (auto) 76.5 %; Platelet Count 206 K/uL (130-400); RDW Coefficient of Variation 15.6 % (11.5-14.5); RDW Standard Deviation 51.8 fL (36.4-46.3); White Blood Count 8.45 K/ul (4.8-10.8)
[2024-02-03 08:38] LABS: BUN Creatinine Ratio 13.8 (10-20); Creatinine Clr Calc Pharmacy 25.2 ml/min; Potassium 3.7 mmol/L (3.5-5.1)
--- NOTE | 2024-02-03 11:44 | Hospitalist Progress Note ---
Date of Service February 03, 2024 Assessment & Plan (1) Choledocholithiasis: Plan: 88-year-old male with PMH of CAD, HTN, HLD, T2DM insulin requiring, CKD [baseline creatinine of 1.5], chronic anemia [baseline hemoglobin of 11], dementia, essential tremors, peripheral neuropathy, GERD, macular degeneration, glaucoma presented to the ED 01/25 with complaint of abdominal pain for 1 day, no shortness of breath or cough or nausea or fever or chills. He is being managed for the following: Abdominal pain secondary to choledocholithiasis Patient presented with abdominal pain of 1 day duration. Admitting CXR with no acute finding. Admitting CTAP with cholelithiasis and choledocholithiasis without ductal dilatation. Concern for cystitis. UA negative for UTI. Admitting gallbladder ultrasound with no evidence of cholecystitis. Ch olelithiasis noted. Admitting LFT elevated. Status post ERCP 01/28/2024: Filling defect noted on cholangiogram, sphincterotomy and bile duct swept with balloon. GI on board, Appreciate recommendation. Appreciate surgery input and recommendation Status post laparoscopic cholecystectomy on 01/30/2024 Remains stable following the procedure and has minimal abdominal pain As per surgery likely discharge tomorrow if remains stable Will need to have PT and OT evaluation prior to discharge- will discontinue antibiotic tomorrow He has been tolerating diet Remains generally weak and lethargic without any other acute symptoms Minimal abdominal tenderness on examination but bowel sound is normal Remains medically stable and cleared by the surgeon for discharge Denies any significant symptoms Discussed with the family members and he will be discharged home tomorrow Remains medically stable and will be discharged home this afternoon Abnormal CTAP, cystitis: UA negative for UTI. Will take out the Mott catheter before discharge Acute kidney injury over CKD stage III: Baseline creatinine of 1.5, admitting creatinine 1.87. Creatinine up trended today, initiated gentle IV fluid, labs in AM. Avoid nephrotoxic's. Kidney function remains stable with a creatinine of 2.61 we will try some intravenous fluid and monitor PRP- kidney function remains stable with creatinine at 1.96 Other chronic medical conditions: Continue with/resume home meds as and when able. Presumptive CAD as per records on aspirin prophylaxis hypertension, stable hyperlipidemia, on statin Rx DM2 insulin requiring, reasonable control given chronic kidney dysfunction, hemoglobin A1c of 8.27 September 2023 . SSI chronic anemia, hemoglobin at baseline hx dementia/essential tremors/peripheral neuropathy DVT prophylaxis. SCDs re: possible procedure Full code pt/ot cm to assist w/ dc plan. Patient daughter Ms. Isadora Aguiar, contact # [phone]. Text document was generated using [employer] voice recognition software. It may contain grammatical or spelling errors. Kindly contact undersigned for clarification of any documentation item in question. Admission and Anticipated Discharge Date Admission Date: January 27, 2024 Subjective 01/31/2024 The patient was seen and examined in medical floor Denies any acute distress or pain, no nausea and/or vomiting 02/01/2024 The patient was seen and examined in medical floor He remains pleasantly confused but not in any acute distress Remains weak and lethargic 02/02/2024 The patient was seen and examined in medical floor in presence of the family membersthe daughter and the He has been feeling much better today and has been tolerating diet Denies to have any significant discomfort except some abdominal pain 02/03/2024 The patient was seen and examined in medical floor He has been stable with minimal discomfort in the abdomen Has been tolerating diet Discussed with the family member yesterday and he will be sent home today Review of Systems Review of Systems: Could not be reliably obtained secondary to dementia Physical Exam Physical Exam: Lying in bed without any acute distress Constitutional: well developed, well nourished, + ill appearing and average body habitus Eyes: PERRL, conjunctivae normal, anicteric sclerae ENMT: external ear and nose normal, oropharynx normal Neck: trachea midline, no thyromegaly Respiratory: no respiratory distress Auscultation: + diminished lung sounds and + crackles ( minimal crackles at the bases) Cardiovascular: Rate/Rhythm: regular rate and regular rhythm; not tachycardic Heart Sounds: normal S1 and normal S2; no murmur Extremities: no edema Gastrointestinal (Abdomen): Inspection/Auscultation: + abdomen distended and normal bowel sounds Percussion/Palpation: + abdomen tender ( mildly tender) and abdomen soft Neurologic: normal touch/pain/proprioception and moves all extremities; no focal motor deficits Lymphatic: no cervical or axillary lymphadenopathy Results & Data Results & Data Vital Signs (Past 12 Hours) Vital Signs Temp Pulse Resp BP Pulse Ox O2 Del Method 02/03/24 09:46 Room Air 02/03/24 08:05 36.4 C L 66 16 160/76 H 96 Room Air Laboratory Results Short CBC 02/03/24 Range/Units 08:03 WBC 8.45 (4.8-10.8) K/ul Hgb 8.4 L (14.0-18.0) g/dl Hct 26.3 L (42.0-52.0) % Plt Count 206 (130-400) K/uL BMP 02/03/24 08:03 Sodium 143 Potassium 3.7 Chloride 113 H Carbon Dioxide 24 BUN 27 H Creatinine 1.96 H D Glucose 84 Calcium 8.0 L Medications Administered Current Inpatient Medications Acetaminophen (Acetaminophen 500 Mg Tab) 500 mg PO Q6H PRN PRN Reason: fever/pain Stop: 02/25/24 20:54 Last Admin: 02/01/24 09:20 Dose: 500 mg Dextrose (Dextrose 50% 50 Ml Syringe) 25 - 50 ml IV UD PRN; Protocol PRN Reason: Hypoglycemia Protocol Stop: 02/25/24 21:44 Donepezil HCl (Donepezil Hcl 10 Mg Tab) 10 mg PO QDD [facility] Stop: 02/26/24 16:29 Last Admin: 02/02/24 17:30 Dose: 10 mg Famotidine (Famotidine 20 Mg Tab) 20 mg PO BID [facility] Stop: 02/25/24 21:44 Last Admin: 02/03/24 08:17 Dose: 20 mg Finasteride (Finasteride 5 Mg Tab) 5 mg PO QAM [facility] Stop: 02/26/24 08:59 Last Admin: 02/03/24 08:17 Dose: 5 mg Gabapentin (Gabapentin 100 Mg Cap) 200 mg PO TID [facility] Stop: 02/26/24 08:59 Last Admin: 02/03/24 08:17 Dose: 200 mg Glucagon (Glucagon For Inj 1 Mg Vial) 1 mg SQ UD PRN; Protocol PRN Reason: Hypoglycemia Protocol Stop: 02/25/24 21:44 Glucose (Glucose 40% Gel 15 Gm Tube) 15 - 30 gm PO UD PRN; Protocol PRN Reason: Hypoglycemia Protocol Stop: 02/25/24 21:44 Glucose (Glucose 10 Tab/Tube) 4 - 8 tab PO UD PRN; Protocol PRN Reason: Hypoglycemia Protocol Stop: 02/25/24 21:44 Hydromorphone HCl (Hydromorphone Inj 0.5 Mg/0.5 Ml Syr) 0.25 mg IV Q4H PRN PRN Reason: Pain Stop: 02/09/24 20:54 Promethazine HCl (Phenergan) 6.25 mg in 50.25 mls @ 201 mls/hr IV Q6H PRN PRN Reason: Nausea And Vomiting Stop: 02/25/24 20:54 Ampicillin Sodium/Sulbactam Sodium (Unasyn) 3,000 mg in 100 mls @ 200 mls/hr IV Q12H [facility] Stop: 02/06/24 14:44 Last Infusion: 02/03/24 03:15 Dose: Infused Insulin Aspart (Insulin Aspart Per Unit Charge) 0 units SC ACHS [facility] Stop: 02/29/24 22:29 Last Admin: 02/03/24 08:46 Dose: Not Given Insulin Glargine (Lantus Per Unit Charge) 0 units SQ HS [facility]; Protocol Stop: 03/02/24 20:59 Last Admin: 02/02/24 20:33 Dose: 6 units Metoprolol Tartrate (Metoprolol Tartrate 25 Mg Tab) 12.5 mg PO BID [facility] Stop: 02/25/24 21:44 Last Admin: 02/03/24 08:17 Dose: 12.5 mg Miscellaneous (Order Awaiting Action: Non-Formulary Medication (Brimonidine- Timolol [Combigan] 0.2-0.5 %) 1 each N/A QS [facility] Stop: 02/26/24 07:59 Last Admin: 02/03/24 08:45 Dose: Not Given Miscellaneous (Carbohydrates For Hypoglycemia ) 15 - 30 gm PO UD PRN PRN Reason: Hypoglycemia Treatment Stop: 02/25/24 21:44 Last Admin: 02/03/24 07:30 Dose: 15 gm Miscellaneous Information (Pharmacy Glycemic Mgmt Consult) 1 each N/A UD PRN; Protocol PRN Reason: Consult Stop: 02/28/24 11:30 Oxycodone HCl (Oxycodone Hcl Ir 5 Mg Tab (Immediate Release)) 5 mg PO Q4H PRN PRN Reason: Moderate Pain (Scale 4, 5, 6) Stop: 02/13/24 19:32 Last Admin: 01/30/24 19:51 Dose: 5 mg Pantoprazole Sodium (Pantoprazole 40 Mg Tab) 40 mg PO QAM [facility] Stop: 02/26/24 08:59 Last Admin: 02/03/24 08:17 Dose: 40 mg Senna/Docusate Sodium (Docusate Sodium/Senna 50/8.6mg Tab) 1 tab PO QAM [facility] Stop: 02/25/24 23:29 Last Admin: 02/03/24 08:20 Dose: 1 tab Sertraline HCl (Sertraline Hcl 50 Mg Tablet) [facility] [place] Stop: 02/26/24 08:59 Last Admin: 02/03/24 08:17 Dose: 25 mg Terazosin HCl (Terazosin Hcl 1 Mg Cap) 2 mg PO HS [facility] Stop: 02/25/24 21:34 Last Admin: 02/02/24 20:26 Dose: 2 mg Tramadol HCl (Tramadol Hcl 50 Mg Tablet) 25 - 50 mg PO Q4H PRN PRN Reason: Pain Stop: 02/25/24 20:54
--- NOTE | 2024-02-03 11:46 | Pharmacy Report ---
Pharmacy Glycemic Short Note 2 - Date of Service February 03, 2024 - Glycemic Short BSG Results (Last 24 hours): 02/02/24 02/02/24 02/03/24 16:28 20:26 07:25 Glucose POC Glucose 96 105 H 65 L* 02/03/24 02/03/24 02/03/24 07:28 07:47 08:03 Glucose 84 POC Glucose 65 L* 81 02/03/24 11:31 Glucose POC Glucose 162 H OUTPATIENT ANTIDIABETIC REGIMEN: * Lantus 30 units SQ q HS * Humalog--12 units at breakfast, 10 units at lunch, 13 units at supper HbA1c 7.8% on 01/27/24 ASSESSMENT: 02/02: * Patient required 18 units of insulin yesterday, of which 6 units were basal * Fasting BSG low 65 mg/dL - treated per hypoglycemia protocol and recheck was 81. Basal dose yesterday was significantly lowered from day prior, however minimal PO intake also noted * Will d/c basal for today and reevaluate tomorrow AM 02/01: * Patient received total of 27 units of insulin yesterday, of which 22 units were basal - was reduced 25% due to AM BSG 65 mg/dL * Despite basal insulin reduction yesterday, hypoglycemic this AM 54 mg/dL - treated per hypoglycemia protocol and trending up to 82 mg/dL * Will adjust scale for basal insulin this evening and decrease 50% 01/31: * Patient received total of 61 units of insulin yesterday, of which 30 units were basal insulin * Fasting BSG low 65 mg/dL - will scale back on basal today ~15-25%. Patient with no PO intake this AM. 01/30: * Blood sugars well-controlled yesterday on POD #0 s/p laparoscopic cholecystectomy * Clear liquid diet this morning, advanced to T2DM low fat * Blood sugars trended up this morning (270 mg/dL) - will increase basal and tighten Novolog today * 311 mg/dL at lunch -> will give one-time IV insulin bolus 01/29: * Patient is NPO for laparoscopic cholecystectomy. BSGs in the low 100s. Will decrease basal insulin for this evening. * Will loosen Novolog parameters given post prandial BSGs were trending downward last evening. 01/28: * 88 year old male admitted 01/25 with abdominal pain secondary to choledocholithiasis. PMH of CKD (SCr 1.63 today) and T2DM. Pharmacy was consulted for glycemic management. * Patient usually receives a total of 65 units of insulin daily as an outpatient. 5 units of insulin were give yesterday (all were bolus) * Fasting BSG today was 283mg/dl and mino to 358mg/dl with lunch today. 5 units of Lantus were already given this morning so an additional 25 units were ordered for this afternoon (10units x 1 then 15 units x 1). Goal is to transition him back to home dose of lantus HS. * Bolus insulin parameters were tightened starting with lunch today. PLAN FOR INPATIENT GLYCEMIC CONTROL: * Basal insulin * Lantus - hold * Bolus insulin * NovoLog per scale ACHS or Q6hrs while NPO * Goal Range: Low 110 mg/dL - High 140 mg/dL * Correction Factor: 30 mg/dL/unit * Nutritional / Prandial insulin per carb ratio of 1 unit per 12 grams CHO consumed
[2024-02-03 15:05] VITALS: BP 149/74; PULSE 67
--- NOTE | 2024-02-04 08:29 | Discharge Summary ---
Date of Service February 04, 2024 Admission HPI Per Admitting Provider History obtained from patient, family, and records. Limited history from patient secondary to language barrier. Medical history significant for presumptive CAD as per records, hypertension, hyperlipidemia, DM2 insulin requiring, CRI (baseline creatinine 1.5), chronic anemia (baseline hemoglobin of 11), dementia, essential tremors, peripheral neuropathy, GERD, macular degeneration, glaucoma. Last confinement 2018 for sepsis secondary to community-acquired pneumonia. 1 day history of achy abdominal pain going to the chest without other symptoms. No prior episodes. No SOB or cough symptoms. No nausea symptoms. No fever, no chills. Patient brought by family to ER for evaluation. Patient accepted for transfer at [facility] pending bed availability. 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 Admission Exam Per Admitting Provider Physical Exam: GENERAL: Demented, comfortable, pleasant, no respiratory distress SKIN: Pallor, warm HEENT: Alopecia, pale palpebral conjunctivae, no ptosis, dry buccal mucosa NECK : Supple, no tenderness CHEST : CTA, no tenderness HEART : RRR, no obvious murmurs ABDOMEN: Some distention, minimal epigastric tenderness EXTREMITIES : No LE swelling/tenderness, no other conspicuous deformities noted NEUROLOGIC : Demented, no facial asymmetry, rest tremors, no other gross foca lity Principal Diagnosis Laparoscopic cholecystectomy Discharge Exam Lying in bed without any acute distress Constitutional well developed, well nourished, + ill appearing and average body habitus Eyes PERRL, conjunctivae normal, anicteric sclerae ENMT external ear and nose normal, oropharynx normal Neck trachea midline, no thyromegaly Respiratory no respiratory distress Auscultation: + diminished lung sounds and + crackles ( minimal crackles at the bases) Cardiovascular Rate/Rhythm: regular rate and regular rhythm; not tachycardic Heart Sounds: normal S1 and normal S2; no murmur Extremities: no edema Gastrointestinal (Abdomen) Inspection/Auscultation: + abdomen distended and normal bowel sounds Percussion/Palpation: + abdomen tender ( mildly tender) and abdomen soft Neurologic normal touch/pain/proprioception and moves all extremities; no focal motor deficits Lymphatic no cervical or axillary lymphadenopathy Discharge Data Allergies Allergy/AdvReac Type Severity Reaction Status Date / Time metformin Allergy Unknown UNK Verified 01/26/24 21:21 salicylates Allergy Unknown . Verified 01/26/24 21:21 Consultations 01/26/24 20:22 ED Decision to Admit Stat 01/27/24 14:00 Consult Gastroenterology Routine 01/29/24 11:55 Consult General Surgery Routine Procedures Performed Operation Date: 01/30/24 08:20 Actual Procedures p Laparoscopic Cholecystectomy(Not Applicable) - Adalberto Stokes, Ordered Studies 01/26/24 12:45 CT abd pelvis wo con Stat 01/26/24 12:46 US gallbladder Stat 01/28/24 08:13 [place] ERCP biliary ductal Routine Hospital Course (1) Choledocholithiasis: 88-year-old male with PMH of CAD, HTN, HLD, T2DM insulin requiring, CKD [baseline creatinine of 1.5], chronic anemia [baseline hemoglobin of 11], dementia, essential tremors, peripheral neuropathy, GERD, macular degeneration, glaucoma presented to the ED 01/25 with complaint of abdominal pain for 1 day, no shortness of breath or cough or nausea or fever or chills. He is being managed for the following: Abdominal pain secondary to choledocholithiasis Patient presented with abdominal pain of 1 day duration. Admitting CXR with no acute finding. Admitting CTAP with cholelithiasis and choledocholithiasis without ductal dilatation. Concern for cystitis. UA negative for UTI. Admitting gallbladder ultrasound with no evidence of cholecystitis. Cholelithiasis noted. Admitting LFT elevated. Status post ERCP 01/28/2024: Filling defect noted on cholangiogram, sphincterotomy and bile duct swept with balloon. GI on board, Appreciate recommendation. Appreciate surgery input and recommendation Status post laparoscopic cholecystectomy on 01/30/2024 Remains stable following the procedure and has minimal abdominal pain As per surgery likely discharge tomorrow if remains stable Will need to have PT and OT evaluation prior to discharge- will discontinue antibiotic tomorrow He has been tolerating diet Remains generally weak and lethargic without any other acute symptoms Minimal abdominal tenderness on examination but bowel sound is normal Remains medically stable and cleared by the surgeon for discharge Denies any significant symptoms Discussed with the family members and he will be discharged home tomorrow Remains medically stable and will be discharged home this afternoon Abnormal CTAP, cystitis: UA negative for UTI. Will take out the Mott catheter before discharge Acute kidney injury over CKD stage III: Baseline creatinine of 1.5, admitting creatinine 1.87. Creatinine up trended today, initiated gentle IV fluid, labs in AM. Avoid nephrotoxic's. Kidney function remains stable with a creatinine of 2.61 we will try some intravenous fluid and monitor PRP- kidney function remains stable with creatinine at 1.96 Other chronic medical conditions: Continue with/resume home meds as and when able. Presumptive CAD as per records on aspirin prophylaxis hypertension, stable hyperlipidemia, on statin Rx DM2 insulin requiring, reasonable control given chronic kidney dysfunction, hemoglobin A1c of 8.27 September 2023 . SSI chronic anemia, hemoglobin at baseline hx dementia/essential tremors/peripheral neuropathy DVT prophylaxis. SCDs re: possible procedure Full code pt/ot cm to assist w/ dc plan. Patient daughter Ms. Isadora Aguiar, contact # [phone]. Text document was generated using [employer] voice recognition software. It may contain grammatical or spelling errors. Kindly contact undersigned for clarification of any documentation item in question. Total Time Total Time Spent Total Time Spent (In Minutes): 35 minutes Discharge Plan Discharge Items Patient Disposition: Home - Self-Care Reason For Visit: ABD PAIN Discharge Diagnosis: laparoscopic cholecystectomy Condition on Discharge: Fair Activity: As commented below Lifting: No more than 10 pounds Bathing Comment: you can shower; No soaking in pools/bath for 2 weeks Exercise/Sports: Wait until after follow-up appointment Non-emergency contact: Surgeon Call non-emergency contact if: you have any medication questions, your symptoms worsen, you have a fever, your temperature is above 101, your temperature is above 101.5, your wound has increased redness, your wound has increased drainage and your wound pain has increased Follow-up/Referrals: Adalberto Stokes DO [Surgeon] - 02/12/24 11:45 am (call office for follow up in 2 weeks ) Manjeet Mosley MD [Primary Care Provider] - (Date & Time 02/07/2024 11:00 AM Provider Manjeet Mosley III, MD Department [facility] ) Diet: Carb Consistent or DM2 Addtl Attending Provider Instructions: SPECIAL CARE INSTRUCTIONS: * You have skin glue over your incisions called dermabond. you may shower with this on. It will tend to dissolve and fall off within a couple weeks. Do not pick at the skin glue * Keep a dry dressing over the site where your surgical drain was removed. Cover with dry 4x4 gauze/tape or a bandaid (and change daily) until the site has healed and no longer leaking fluid, * You may shower . NO soaking in pools or baths for 2 weeks * No lifting greater than 10lbs. No strenuous exercise until cleared by surgeon. Light walking is accepted. * No driving while taking narcotic pain medication; wait at least 3 days * No drinking alcohol while taking narcotic pain medication * May use Ibuprofen/Tylenol over the counter for pain as tolerated. Do not exceed 3grams of Tylenol per 24 hours * Expect some swelling and bruising. * Diet- you may resume your regular diet Call your doctor if: * Temperature above 101 degrees, nausea/vomiting, fever/chills * Pain not relieved by pain medicine ordered * There is increased drainage or redness from any incision * You have any unanswered questions or concerns [phone]. FOLLOW UP VISIT: If not already scheduled, please call the office for a follow-up visit. Office Pending Studies at Discharge: Yes Studies:: surgical pathology Stand-Alone Forms: My [facility], Smoking Cessation Medications and DC Order Prescriptions: Continued gabapentin [Neurontin] 300 mg Capsule 600 mg PO BID rosuvastatin 20 mg Tablet 20 mg PO QAM finasteride 5 mg Tablet 5 mg PO QAM aspirin 81 mg Tablet,Delayed Release (Dr/Ec) 81 mg PO QAM terazosin 2 mg Capsule 2 mg PO HS nitroglycerin 0.4 mg Tablet, Sublingual 0.4 mg Sublingual DIRECTED PRN (Reason: Chest Pain) Rx Instructions: place 1 tab under the tongue every 5 min x 3 for chest pain donepezil 10 mg Tablet 10 mg PO QPM Rx Instructions: TAKE AFTER SUPPER metoprolol tartrate 25 mg Tablet 12.5 mg PO BID furosemide [Lasix] 40 mg Tablet 40 mg PO UD Rx Instructions: TAKE I TABLET DAILY ON SATURDAY,SATURDAY,SATURDAY...MAY TAKE 1 DAILY FOR 3 DAYS IF NEEDED FOR SWELLING omeprazole 20 mg Capsule,Delayed Release(Dr/Ec) 20 mg PO QAM brimonidine-timolol [Combigan] 0.2-0.5 % Drops 1 drp OPB BID gabapentin 100 mg capsule 200 mg PO HS sertraline 50 mg tablet 25 mg PO QAM Rx Instructions: 1/2 TABLET DOSE famotidine 20 mg tablet 20 mg PO BID cholecalciferol (vitamin D3) [Vitamin D3] 25 mcg (1,000 unit) capsule 1,000 unit PO Q OTHER DAY benzonatate 100 mg Capsule 100 mg PO TID PRN (Reason: Cough) guaifenesin 600 mg Tablet Extended Release 12hr 600 mg PO Q12H PRN (Reason: Congestion) Changed insulin lispro [Humalog KwikPen Insulin] 100 unit/mL insulin pen See Rx Instructions .ROUTE .COMPLEX Qty: 0 0RF Rx Instructions: INJECT 8 UNITS UNDER THE SKIN BEFORE BREAKFAST, 8 UNITS BEFORE LUNCH AND 10 UNITS BEFORE SUPPER insulin glargine [Lantus Solostar U-100 Insulin] 100 unit/mL (3 mL) Insulin Pen 15 unit SUBCUT HS Qty: 0 0RF Discharge Orders: Discharge Order (Routine); Ordered 02/03/24 Ordered By: Johnie Swann/Other Patient Handouts: Managing Type 2 Diabetes Admission Data Admit Date/Time: 01/27/24 15:29 Attending Provider: Johnie Kearney Admit Provider: Jesús Chau Primary Care Provider: Manjeet Mosley Other Providers: Jesús Chau; Garrett Garcia I; Adalberto Stokes; Darcy Huber Other Interventions: Discharge Summary Assessment (RN) Last Done: 02/03/24 14:58
== END 2024-02-03 15:52 | disposition home or self-care (01) | DRG 418 ==
LOC: ED 10:31 → 3N 10:31 → SUATTDRO 01-27 15:29

== ENCOUNTER 2024-04-09 05:13 | Inpatient (IN) ==
--- OUTSIDE RECORDS SUMMARY | 2024-04-09 05:18 | External Medical Summary | Summary of Care ---
Author Name Unknown Organization [facility] Address [address] [place] [address] Phone [phone] Care Team Providers Care Branch Store Manager Name Role Phone Dimitri EMERY MD, Manjeet Adkins Primary Care Provider [phone] Reason for Visit * Reason Onset Date Comments Appointment 04/01/2024 Encounter Details Date Type Department Care Team (Late st Contact Info) Description 04/01/2024 Telephone [facility] [place] [address] [place] [address] Khoa Nielsen, DINA [address], [place] [id number] Appointment (//) Allergies Active Allergy Reactions Criticality Noted Date Comments Metformin Hydrochloride 11/14/2004 GI SE Salicylates 03/10/2002 documented as of this encounter (statuses as of 04/02/2024) Medications ONETOUCH DELICA LANCING DEV MISCIndications:D M type 2, goal A1C 7-8 Use to test blood sugar 3 times daily 1 Device 0 2 Active ONETOUCH DELICA LANCETS FINE MISCIndications:D M type 2, goal A1C below 8.0 test blood sugar four times daily as directed; dx 250.00 100 Each 11 5 Active ONETOUCH ULTRA BLUE STRPIndications:D iabetes mellitus, type II ([facility]) Use up to four times a [...] goal of less than 8.0% ([facility]) Use with insulins - 4 times [...] Ophthalmic Solution (Combigan)Indicat ions:Stable angina ([facility]),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[facility]),Other specified glaucoma one drop to both eyes twice daily 10 mL 3 3 Active FreeStyle Sheree 2 SensorIndications :Type 2 diabetes mellitus with hemoglobin A1c goal of less than 7.5% ([facility]) Use as directed. Change every 14 days. 3 Each 4 Active Incontinence Brief Large As directed 18 Each 4 Active FreeStyle Sheree 2 Fossil Device Use as directed. 1 Each 2 4 Active Gabapentin 300 MG Oral Capsule [...] EVERY DAY 90 Tablet 3 4 Active Vitamin D High Potency 25 MCG (1000 UT) Oral Capsule (Cholecalciferol) EVERY OTHER DAY 30 Capsule 3 5 Active Terazosin HCl 2 MG Oral CapsuleIndication s:Edema, unspecified type TAKE ONE CAPSULE AT BEDTIME 90 Capsule 3 5 Active Terazosin HCl 2 MG Oral CapsuleIndication s:Edema, unspecified type TAKE ONE CAPSULE AT BEDTIME 28 Capsule 5 4 Active Vitamin D High Potency 25 MCG (1000 UT) Oral Capsule (Cholecalciferol) EVERY OTHER DAY 14 Capsule 5 4 Active Insulin Glargine Solostar 100 UNIT/ML Subcutaneous Solution Pen-injector (Lantus SoloStar)Indicati ons:Type 2 diabetes mellitus with hemoglobin A1c goal of less than 8.0% ([facility]) Inject 15 Units under the skin at bedtime. 3 mL 3 4 Active Insulin Lispro (1 Unit Dial) 100 UNIT/ML Subcutaneous Solution Pen-injector (HumaLOG KwikPen)Indicatio ns:Type 2 diabetes mellitus with hemoglobin A1c goal of less than 8.0% ([facility]) Inject 8 units under the skin before breakfast, 8 units before lunch and 10 units before supper. 3 mL 3 4 Active Benzonatate 100 MG Oral Capsule (Teszuri Bill)Indication s:Acute cough Take 1 Capsule by mouth 3 times a day as needed for Cough. Do not cut, crush, or chew. 50 Capsule 1 4 Active documented as of this encounter (statuses as of 04/02/2024) Active Problems Problem Noted Date Diagnosed Date Type 2 diabetes mellitus wit h stage 3b chronic kidney disease, with long-term current use of insulin 06/14/2023 Inavailability of community resources 11/27/2022 Diabetic polyneuropathy asso ciated with diabetes mellitus [...] as of this encounter (statuses as of 04/02/2024) Resolved Problems Problem Noted Date Diagnosed Date Resolved Date Stage 3a chronic kidney disease 06/14/2023 06/14/2023 Food insecurity 07/02/2022 03/12/2024 Overview: Per [facility] Protocol Stage 3b chronic kidney disease 06/05/2021 08/09/2022 [...] inactive term ACTIVE CASE MANAGEMENT-Flaco Roberts RN [phone]. 05/05/2008 12/12/2009 DIAB RENAL MANIF ADULT 09/17/200707/02 [...] as of this encounter (statuses as of 04/02/2024) Immunizations Name Administration Dates Next Due COVID-19 mRNA, LNP-s, No Pre serve, 2-Dose Series (Pfizer) 10/26/2020,10/05/2020 COVID-19, MRNA-LNP, PF, 30 M CG/0.3 mL, 12 YRS AND ABOVE, IM (PFIZER-Comirnat) 01/30/2023 Covid-19, Mrna, Lnp-s, Pf, B ivalent, 30 Mcg, IM, 12 yrs and above (Pfizer) 03/01/2022 Pneumococcal Conjugate Vacc, 13 Valent (Prevnar) 05/06/2014 Season Influenza, Quad, PF, Adjuvanted, 65+ Yrs, IM (FLUAD) 11/05/2019 Seasonal Influenza Vac., MDV , IM, 0.5 mL (Fluzone) 11/19/2013,01/02/2013,11/27/2011,2010,12/01/2009,03/07/2009,01/07/2008,1 ,12/12/2005 Seasonal Influenza, High Dos e, Trivalent, PF, IM (Fluzone HD) 02/11/2024 Seasonal Influenza, PF, 6 M & above, [...] Date Recorded PHQ Adult Total Score 0 02/05/2024 Hunger Vital Sign Answer Date Recorded Within the past 12 months, y ou worried that your food would run out before you got the money to buy more. Never true 02/05/20 24 Within the past 12 months, t he food you bought just didn't last and you didn't have money to get more. Never true 02/05/2024 Childcare Answer Date Recorded Do you feel overwhelmed with taking care of a child, family member or friend? No 02/05/2024 Does your family need help f inding childcare? (Household - for ages 0-17 years) Not on file 02/05/2024 Clothing Answer Date Recorded Have you been unable to get clothing when it was really needed? No 02/05/2024 Is your family able to get c lothes or diapers when needed? (Household - for ages 0-17 years) Not on file 02/05/2024 Personal Safety Answer Date Recorded Do you feel unsafe or have concerns for your saf ety? No 02/05/2024 Do you have concerns for you r family's safety? (Household - for ages 0-17 years) Not on file 02/05/2024 Utilities Answer Date Recorded Do you have trouble paying y our heating, water, or electric bill? No 02/05/2024 Is your family able to pay t he heat, water, or electric bill? (Household - for ages 0-17 years) Not on file 02/05/2024 Does your family have access to good internet? (Household - for ages 0-17 years) Not on file 02/05/2024 Employment Status Answer Date Recorded Are you unemployed or without regular income? No 02/05/2024 Does the household have a re gular source of income? (Household - for ages 0-17 years) Not on file 02/05/2024 Social Connections Answer Date Recorded How often do you feel lonely or isolated from th ose around you? Never 02/05/2024 Financial Resource Strain Answer Date R ecorded Do you have any trouble payi ng for your medications, or do you think you might in the future? No 02/05/2024 Does your family have troubl e paying for medicine? (Household - for ages 0-17 years) Not on file 02/05/2024 Transportation Needs Answer Date Record ed READ ONLY Do you have troubl e getting a ride to medical visits or work? Never True 02/05/2024 Does your family have a hard time getting a ride to doctors visits? (Household - for ages 0-17 years) Not on file 02/05/2024 Has lack of transportation k ept you from medical appointments, meetings, work, or from getting things needed for daily living? Check all that apply. No 02/05/2024 Do you (or your family) have trouble finding or paying for a ride (transportation)? (Household - for ages 0-17 years) Not on file 02/05/2024 Housing Stability Answer Date Recorded Do you currently live in a s helter or have no steady place to sleep at night? No 02/05/2024 READ ONLY Do you think you a re at risk of becoming homeless? No 02/05/2024 Does your family worry about paying for your home or becoming homeless? (Household - for ages 0-17 years) Not on file 1 04/07/2023 Are you homeless or worried that you might be in the future? No 02/05/2024 Are you (or your family) dany eless or worried that you might be in the future? (Household - for ages 0-17 years) Not on file Food Insecurity Answer Date Recorded Do you need food for this week? No 02/05/2024 Are you able to get enough f ood for your family? (Household - for ages 0-17 years) Not on file 02/05/2024 Does your family need food t his week? (Household - for ages 0-17 years) Not on file 02/05/2024 Do you always have enough fo od for your family? (Household - for ages 0-17 years) Not on file 02/05/2024 Food Insecurity Answer Date Recorded Within the past 12 months, y ou worried that your food would run out before you got the money to buy more. Never true 02/05/20 24 Within the past 12 months, t he food you bought just didn't last and you didn't have money to get more. Never true 02/05/2024 Do you need food for this week? No 02/05/2024 Sex and Gender Information Value Date Recorded [...] encounter Miscellaneous Notes * Telephone Encounter - Khoa Nielsen OSA - 04/01/2024 4:12 PM EST Call to daughter and confirmed rescheduled new kaco to 04/21 at 1030am documented in this encounter Plan of Treatment Upcoming Encounters Date Type Department Care Team (Late st Contact Info) Description 04/21/2024 10:30 AM EST Telemedicine [facility] [place] [address] [place] [address] Marlin Hlal PA-C [address] [facility] [address] Renetta Ladd, Community Health Drafter Assistant [address] [place] [address] 07/06/2024 8:30 AM EDT Nurse Only Ancillary [address] [place] [id number] [place], Nurse [address] [place] [address] Health Maintenance Due Date Last Done Comments DTap/Tdap Vaccines (1 - Tdap) 08/03/2008 08/02/2008 Zoster Vaccines (3 of 3) 06/12/2019 04/17/2019, 03/29 COVID-19 Vaccine (5 - season) 2023 01/30/2023, 03/01/2022, 10/26/2020, Additional history exists HbA1c 04/08/2024 10/07/2023, 05/26, 01/30/2023, Additional history exists Diabetic Foot Exam 06/03/2024 06/04/2023 (D one elsewhere), 06/28/2022, 02/06/2021, Additional history exists Adult Wellness Visit 07/02/2024 07/03/2023, 06/28/2022, 06/26/2021 Diabetic Eye Exam 07/31/2024 08/01/2023, , 06/29/2021, Additional history exists CKD HGB USE SMARTSET 24369 10/06/202410/06, 06/14/2023, 01/30/2023, Additional history exists CKD PHOS USE SMARTSET 55993 10/06/202409/25, 01/30/2023, 01/03/2022, Additional history exists Albumin/Creatinine Ratio 10/13/2024 024, 09/18/2021, 08/23/2020, Additional history exists Depression Screening 02/04/2025 02/05/2024, 07/03/2023, 07/03/2023 Pneumococcal Vaccine: 50+ Years Completed 05/06/2014, 12/28/2004 Influenza Vaccine (FLU shot) Completed , 11/27/2022, 01/03/2022, Additional history exists HPV (Gardasil) Vaccine Aged Out No lo [...] filedocumented as of this encounter Care Teams Branch Store Manager Relationship Specialty Start Date End Date Manjeet Mosley III, MD [address] [place] [address] PCP - General 11/18/06 documented as of this encounter
--- OUTSIDE RECORDS SUMMARY | 2024-04-09 05:19 | External Medical Summary | Summary of Care ---
Author Name Unknown Organization [facility] Address [address] [place] [address] Phone [phone] Care Team Providers Care Broomcorn Scraper Name Role Phone Dimitri EMERY MD, Brian Adkins Primary Care Provider [phone] Reason for Visit * Reason Comments eRx-Medication Refill Encounter Details Date Type Department Care Team (Late st Contact Info) Description 12/18/2023 Refill Care Coordination [address] [place], [place] [phone] Brian Savage III, MD [address] [place] [address] Edema, unspecified type Allergies Active Allergy Reactions Criticality Noted Date Comments Metformin Hydrochloride 11/14/2004 GI SE Salicylates 03/10/2002 documented as of this encounter (statuses as of 03/04/2024) Medications ONETOUCH DELICA LANCING DEV MISCIndications: DM type 2, goal A1C 7-8 Use to test blood sugar 3 times daily 1 Device 0 2 Active ONETOUCH DELICA LANCETS FINE MISCIndications: DM type 2, goal A1C below 8.0 test blood sugar four times daily as directed; dx 250.00 100 Each 11 5 Active ONETOUCH ULTRA BLUE STRPIndications: Diabetes mellitus, type II ([facility]) Use up to four times [...] goal of less than 8.0% ([facility]) Use with insulins - 4 [...] Ophthalmic Solution (Combigan)Indica tions:Stable angina ([facility]),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 Change every 14 days. 3 Each 4 Active Incontinence Brief Large As directed 18 Each 4 Active FreeStyle Sheree 2 [place] Device Use as directed. 1 Each 2 [...] 4 Active Furosemide 40 MG Oral Tablet (Lasix)Indicatio [...] 4 Active Finasteride 5 MG Oral Tablet (Proscar)Indicat ions:BPH without obstruction/lowe r urinary tract symptoms TAKE ONE TABLET EVERY DAY 90 Tablet 3 4 Active Vitamin D High Potency 25 MCG (1000 UT) Oral Capsule (Cholecalciferol ) EVERY OTHER DAY 30 Capsule 3 5 Active Terazosin HCl 2 MG Oral CapsuleIndicatio ns:Edema, unspecified type TAKE ONE CAPSULE AT BEDTIME 90 Capsule 3 5 Active documented as of this encounter (statuses as of 03/04/2024) Active Problems Problem Noted Date Diagnosed Date [...] as of this encounter (statuses as of 03/04/2024) Resolved Problems Problem Noted Date Diagnosed Date [...] 140/90 01/06/201501/23 HTN, goal below 130/80 06/02/201302/09 Harrisonc dermatitis 06/16/20122017 Overview (11/26/2016): ICD-10 update of [...] inactive term ACTIVE CASE MANAGEMENT-Flaco Roberts RN [phone]. 05/05/2008 12/12/2009 DIAB RENAL MANIF ADULT 09/17/200707/02 [...] as of this encounter (statuses as of 03/04/2024) Immunizations Name Administration Dates Next Due COVID-19 mRNA, LNP-s, No Pre serve, 2-Dose Series ([employer]) 10/26/2020,10/05/2020 COVID-19, MRNA-LNP, PF, 30 M CG/0.3 mL, 12 YRS AND ABOVE, IM ([facility]) 01/30/2023 Covid-19, Mrna, Lnp-s, Pf, B ivalent, [...] ages 0-17 years) Not on file 02/05/2024 Sex and Gender Information Value Date [...] Encounter - Brian Savage III, MD - 03/04/2024 2:08 PM ESTSigned Prescriptions: Disp Refills Vitamin D High Potency 25 MCG (1000 UT) Or*30 Cap*3 Sig: EVERY OTHER DAYAuthorizing Provider: BRIAN SAVAGE III Terazosin HCl 2 MG Oral Capsule 90 Cap*3 Sig: TAKE ONE CAPSULE AT BEDTIMEAuthorizing Provider: BRIAN SAVAGE III * Telephone Encounter - Tegan Banks RN - 03/04/2024 9:04 AM ESTPending Prescriptions: Disp Refills Vitamin D High Potency 25 MCG (1000 UT) Or*30 Cap*3 Sig: EVERY OTHER DAY Terazosin HCl 2 MG Oral Capsule [Pharmacy *90 Cap*3 Sig: TAKE ONE CAPSULE AT BEDTIME * Telephone Encounter - Tegan Banks RN - 03/04/2024 9:03 AM EST Last visit 02/11/24 documented in this encounter Plan of Treatment Upcoming Encounters Date Type Department Care Team (Late st Contact Info) Description 07/06/2024 8:30 AM EDT Nurse Only Ancillary [address] [place] [phone] [place]auri Nurse [address] [place] [address] Health Maintenance Due Date Last Done Comments [...] Additional history exists CKD HGB USE SMARTSET 39388 10/06/202410/06, 06/14/2023, 01/30/2023, Additional history exists CKD PHOS USE SMARTSET 21280 10/06/202409/25, 01/30/2023, 01/03/2022, Additional history exists Albumin/Creatinine [...] type documented in this encounter Care Teams Broomcorn Scraper Relationship Specialty Start Date End Date Brian Savage III, MD [address] [place] [address] PCP - General 11/18/06 documented as of this encounter
--- OUTSIDE RECORDS SUMMARY | 2024-04-09 05:19 | External Medical Summary | Summary of Care ---
Author Name Unknown Organization [facility] Address [address] [place] [address] Phone [phone] Care Team Providers Care Wringer Machine Operator Name Role Phone Dimitri EMERY MD, Manjeet Adkins Primary Care Provider [phone] Encounter Details Date Type Department Care Team (Late st Contact Info) Description 03/04/2024 9:15 AM EST Scheduled Telephone Care Coordination and Integration [address] [place] [address] [facility] Spring Tacker [address] [place] [address] Allergies Active Allergy Reactions Criticality Noted Date Comments Metformin Hydrochloride 11/14/2004 GI SE Salicylates 03/10/2002 documented as of this encounter (statuses as of 03/04/2024) Medications ONETOUCH DELICA LANCING DEV MISCIndications:D M [...] hemoglobin A1c goal of less than 8.0% ([facility]) Use with insulins - 4 times a [...] 0.2-0.5 % Ophthalmic Solution (Combigan)Indicat ions:Stable angina ([facility]),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[facility]),Other specified glaucoma one drop to both eyes twice daily 10 mL 3 3 Active FreeStyle Sheree 2 SensorIndications :Type 2 diabetes mellitus with hemoglobin A1c goal of less than 7.5% ([facility]) Use as directed. Change every 14 days. 3 Each 4 Active Incontinence Brief Large As directed 18 Each 4 Active FreeStyle Sheree 2 [place] Device Use as directed. 1 Each 2 [...] EVERY DAY 90 Tablet 3 4 Active Terazosin HCl 2 MG Oral CapsuleIndication s:Edema, unspecified type TAKE ONE CAPSULE AT BEDTIME 28 Capsule 5 4 Active Vitamin D High Potency 25 MCG (1000 UT) Oral Capsule (Cholecalciferol) EVERY OTHER DAY 14 Capsule 5 4 Active Insulin Glargine Solostar 100 UNIT/ML Subcutaneous Solution Pen-injector (Lantus SoloStar)Indicati ons:Type 2 diabetes mellitus with hemoglobin A1c goal of less than 8.0% ([facility]) Inject 15 Units under the skin at bedtime. 3 mL 3 4 Active Insulin Lispro (1 Unit Dial) 100 UNIT/ML Subcutaneous Solution Pen-injector (HumaLOG KwikPen)Indicatio ns:Type 2 diabetes mellitus with hemoglobin A1c goal of less than 8.0% ([facility]) Inject 8 units under the skin before breakfast, 8 units before lunch and 10 units before supper. 3 mL 3 4 Active Benzonatate 100 MG Oral Capsule (Tessalvilma Bill)Indication s:Acute cough Take 1 Capsule by [...] inactive term ACTIVE CASE MANAGEMENT-Flaco Roberts RN [phone]. 05/05/2008 12/12/2009 DIAB RENAL MANIF ADULT 09/17/200707/02 [...] mRNA, LNP-s, No Pre serve, 2-Dose Series ([employer]) 10/26/2020,10/05/2020 COVID-19, MRNA-LNP, PF, 30 M CG/0.3 mL, 12 YRS AND ABOVE, IM ([employer]) 01/30/2023 Covid-19, Mrna, Lnp-s, Pf, B [...] as of this encounter Progress Notes * [facility] - 03/04/2024 9:45 AM EST Telemedicine visit: No [facility] (MADELYN) documentation: CHW follow up phone call to patient's niece, Jayne for RNCM and ended up speaking with aJyne's cousin, Negro. Negro reports that the patient seems to be doing well. He reports that the patient seems to be doingwell 80-90% of the time. He said he will be in a good mood and fine, then another minute he is being funny. Negro reports that the patient's incisions are healing well and is dry, with no drainage or signs ofinfection. Negro denies any recent falls. Negro denies any current fever/chills. Negro reports no current episodes of SOB or coughing. Negro agreeable to follow up phone call in 1 week. He states if we want to speak with his cousin, Jayne to call after 11am, as she usually comes there around that time. Georgi Bird [facility] Worker Lead MARKEL Beard [phone] documented in this encounter Plan of Treatment Upcoming Encounters Date Type Department Care Team (Late st Contact Info) Description 07/06/2024 8:30 AM EDT Nurse Only Ancillary [place] [address] [place] [address] [place], Nurse [address] [place] [address] Health Maintenance Due Date Last Done Comments [...] Additional history exists CKD HGB USE SMARTSET 29935 10/06/202410/06, 06/14/2023, 01/30/2023, Additional history exists CKD PHOS USE SMARTSET 99886 10/06/202409/25, 01/30/2023, 01/03/2022, Additional history exists Albumin/Creatinine [...] filedocumented as of this encounter Care Teams Wringer Machine Operator Relationship Specialty Start Date End Date Manjeet Mosley III, MD [address] [place] [address] PCP - General 11/18/06 documented as of this encounter
--- OUTSIDE RECORDS SUMMARY | 2024-04-09 05:19 | External Medical Summary | Summary of Care ---
Author Name Unknown Organization [facility] Address [address] [place] [address] Phone [phone] Care Team Providers Care Observatory Director Name Role Phone Dimitri EMERY MD, Manjeet Adkins Primary Care Provider [phone] Encounter Details Date Type Department Care Team (Late st Contact Info) Description 02/25/2024 12:00 PM EST Scheduled Telephone Care Coordination and Integration [address] [place] [address] Renetta Ladd, [facility] Motor Vehicle Licence Examiner [address] [place], [place] [phone] Allergies Active Allergy Reactions Criticality Noted Date Comments Metformin Hydrochloride 11/14/2004 GI SE Salicylates 03/10/2002 documented as of this encounter (statuses as of 03/05/2024) Medications ONETOUCH DELICA LANCING DEV MISCIndications:D M [...] hemoglobin A1c goal of less than 8.0% ([facility]) Use with insulins - 4 [...] 0.2-0.5 % Ophthalmic Solution (Combigan)Indicat ions:Stable angina ([facility]),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[facility]),Other specified glaucoma one drop to both eyes twice daily 10 mL 3 3 Active FreeStyle Sheree 2 SensorIndications :Type 2 diabetes mellitus with hemoglobin A1c goal of less than 7.5% ([facility]) Use as directed. Change every 14 days. 3 Each 4 Active Incontinence Brief Large As directed 18 Each 4 Active FreeStyle Sheree 2 [place] Device Use as directed. 1 Each 2 [...] as of this encounter (statuses as of 03/05/2024) Active Problems Problem Noted Date Diagnosed Date [...] as of this encounter (statuses as of 03/05/2024) Resolved Problems Problem Noted Date Diagnosed Date [...] inactive term ACTIVE CASE MANAGEMENT-Flaco Roberts RN [phone]. 05/05/2008 12/12/2009 DIAB RENAL MANIF ADULT 09/17/200707/02 [...] as of this encounter (statuses as of 03/05/2024) Immunizations Name Administration Dates Next Due COVID-19 mRNA, LNP-s, No Pre serve, 2-Dose Series (Pfizer) 10/26/2020,10/05/2020 COVID-19, MRNA-LNP, PF, 30 M CG/0.3 mL, 12 YRS AND ABOVE, IM ([employer]) 01/30/2023 Covid-19, Mrna, Lnp-s, Pf, B ivalent, [...] No 02/05/2024 Does the household have a [facility] house health centerlar source of income? (Household - for [...] as of this encounter Progress Notes * Renetta L[facility] Motor Vehicle Licence Examiner - 02/25/2024 11:52 AM EST Telemedicine visit: No [facility] Motor Vehicle Licence Examiner (MADELYN) documentation: CHW aaron call per CAREY Woodard [place],UTLVM documented in this encounter Plan of Treatment Upcoming Encounters Date Type Department Care Team (Late st Contact Info) Description 07/06/2024 8:30 AM EDT Nurse Only Ancillary [place]ian Farn[place] [address] [place] [address] [place], Nurse Annual [address] [place] [address] Health Maintenance Due Date Last Done Comments [...] Additional history exists CKD HGB USE SMARTSET 43454 10/06/202410/06, 06/14/2023, 01/30/2023, Additional history exists CKD PHOS USE SMARTSET 62857 10/06/202409/25, 01/30/2023, 01/03/2022, Additional history exists Albumin/Creatinine [...] filedocumented as of this encounter Care Teams Observatory Director Relationship Specialty Start Date End Date Dimitri EMERY, Manjeet Adkins MD [address] [facility] [place] [address] PCP - General 11/18/06 documented as of this encounter
--- OUTSIDE RECORDS SUMMARY | 2024-04-09 05:19 | External Medical Summary | Summary of Care ---
Author Name Unknown Organization [facility] Address [address] [place] [address] Phone [phone] Care Team Providers Care Yield Loss Inspector Name Role Phone Dimitri EMERY MD, Manjeet Adkins Primary Care Provider [phone] Encounter Details Date Type Department Care Team (Late st Contact Info) Description 03/16/2024 Population Health External Data Unspecified Department Allergies Active Allergy Reactions Criticality Noted Date Comments Metformin Hydrochloride 11/14/2004 GI SE Salicylates 03/10/2002 documented as of this encounter (statuses as of 03/16/2024) Medications ONETOUCH DELICA LANCING DEV MISCIndications:D M [...] A1c goal of less than 8.0% ([facility]) Use with insulins - 4 [...] % Ophthalmic Solution (Combigan)Indicat ions:Stable angina ([facility]),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[facility]),Other specified glaucoma one drop to both eyes twice daily 10 mL 3 3 Active FreeStyle Sheree 2 SensorIndications :Type 2 diabetes mellitus with hemoglobin A1c goal of less than 7.5% ([facility]) Use as directed. Change every 14 days. 3 Each 4 Active Incontinence Brief Large As directed 18 Each 4 Active FreeStyle Sheree 2 [place] Device Use as directed. 1 Each 2 [...] A1c goal of less than 8.0% ([facility]) Inject 8 units under the skin before breakfast, 8 units before lunch and 10 units before supper. 3 mL 3 4 Active Benzonatate 100 MG Oral Capsule (Ellynemilyvilma Landy)Indication s:Acute cough Take 1 Capsule by mouth 3 times a day as needed for Cough. Do not cut, crush, or chew. 50 Capsule 1 4 Active documented as of this encounter (statuses as of 03/16/2024) Active Problems Problem Noted Date Diagnosed Date Type 2 diabetes mellitus wit h stage 3b chronic kidney disease, with long-term current use of insulin 06/14/2023 Inavailability of [facility] resources 11/27/2022 Diabetic polyneuropathy asso ciated with [...] as of this encounter (statuses as of 03/16/2024) Resolved Problems Problem Noted Date Diagnosed Date [...] inactive term ACTIVE CASE MANAGEMENT-Flaco Roberts RN [phone]. 05/05/2008 12/12/2009 DIAB RENAL MANIF ADULT 09/17/200707/02 [...] as of this encounter (statuses as of 03/16/2024) Immunizations Name Administration Dates Next Due COVID-19 mRNA, LNP-s, No Pre serve, 2-Dose Series ([employer]) 10/26/2020,10/05/2020 COVID-19, MRNA-LNP, PF, 30 M CG/0.3 mL, 12 YRS AND ABOVE, IM ([facility] 01/30/2023 Covid-19, Mrna, Lnp-s, Pf, B ivalent, [...] 02/05/2024 Does the household have a re lar [...] 07/06/2024 8:30 AM EDT Nurse Only Ancillary [address] [place] [address] [place], Nurse Annual [address] [place] [address] Health Maintenance Due Date Last Done Comments [...] Additional history exists CKD HGB USE SMARTSET 57988 10/06/202410/06, 06/14/2023, 01/30/2023, Additional history exists CKD PHOS USE SMARTSET 09483 10/06/202409/25, 01/30/2023, 01/03/2022, Additional history exists Albumin/Creatinine [...] filedocumented as of this encounter Care Teams Yield Loss Inspector Relationship Specialty Start Date End Date Manjeet Mosley III, MD [address] [place] [address] PCP - General 11/18/06 documented as of this encounter
--- OUTSIDE RECORDS SUMMARY | 2024-04-09 05:19 | External Medical Summary | Summary of Care ---
Author Name Unknown Organization [facility] Address [address] [place] [address] Phone [phone] Care Team Providers Care Diversified Crops Ii Farmworker Name Role Phone Dimitri EMERY MD, Manjeet Adkins Primary Care Provider [phone] Encounter Details Date Type Department Care Team (Late st Contact Info) Description 03/11/2024 10:30 AM EST Scheduled Telephone Care Coordination and Integration [address] [place] [address] [facility] [place] Sole Layer [address] [place] [address] Allergies Active Allergy Reactions Criticality Noted Date Comments Metformin Hydrochloride 11/14/2004 GI SE Salicylates 03/10/2002 documented as of this encounter (statuses as of 03/11/2024) Medications ONETOUCH DELICA LANCING DEV MISCIndications:D M [...] Ophthalmic Solution (Combigan)Indicat ions:Stable angina ([facility]),DM type [...] 18 Each 4 Active FreeStyle Sheree 2 [place] Device Use as directed. 1 Each 2 [...] as of this encounter (statuses as of 03/11/2024) Active Problems Problem Noted Date Diagnosed Date [...] as of this encounter (statuses as of 03/11/2024) Resolved Problems Problem Noted Date Diagnosed Date [...] inactive term ACTIVE CASE MANAGEMENT-Flaco Roberts RN [phone]. 05/05/2008 12/12/2009 DIAB RENAL MANIF ADULT 09/17/200707/02 [...] as of this encounter (statuses as of 03/11/2024) Immunizations Name Administration Dates Next Due COVID-19 mRNA, LNP-s, No Pre serve, 2-Dose Series (Pfizer) 10/26/2020,10/05/2020 COVID-19, MRNA-LNP, PF, 30 M CG/0.3 mL, 12 YRS AND ABOVE, IM (P[employer]ER-Comirnaty) [...] Progress Notes * [facility] [place] - 03/11/2024 11:29 AM EST Telemedicine visit: No [facility] [place]ole Layer (MADELYN) documentation: CHW follow up phone call #4 for RNCM. A female answered the phone. When CHW asked to speak with Jayne 2 times, the female hung up the phone. Georgi [facility] Worker Lead [place] [phone] documented in this encounter Plan of Treatment Upcoming Encounters Date Type Department Care Team (Late st Contact Info) Description 07/06/2024 8:30 AM EDT Nurse Only Ancillary Fabian Farnsworth [address] [place] [address] [place], Nurse Annual [address] [place] [address] Health Maintenance Due Date Last Done Comments [...] Additional history exists CKD HGB USE SMARTSET 07425 10/06/202410/06, 06/14/2023, 01/30/2023, Additional history exists CKD PHOS USE SMARTSET 02942 10/06/202409/25, 01/30/2023, 01/03/2022, Additional history exists Albumin/Creatinine [...] filedocumented as of this encounter Care Teams Diversified Crops Ii Farmworker Relationship Specialty Start Date End Date Dimitri EMERY, Manjeet dAkins MD [address] [place] [address] PCP - General 11/18/06 documented as of this encounter
--- OUTSIDE RECORDS SUMMARY | 2024-04-09 05:20 | External Medical Summary | Summary of Care ---
Author Name Unknown Organization [facility] Address [address] [place] [address] Phone [phone] Care Team Providers Care Boring Machine Set Up Operator Name Role Phone Dimitri EMERY MD, Manjeet Adkins Primary Care Provider [phone] Reason for Visit * Reason Onset Date Comments Order Request 02/11/2024 Encounter Details Date Type Department Care Team (Late st Contact Info) Description 02/11/2024 Telephone Family Practice [facility] [address] [facility] [place] [address] Manjeet Mosley III, MD [address] [place] [address] Order Request Allergies Active Allergy Reactions Criticality Noted Date Comments Metformin Hydrochloride 11/14/2004 GI SE Salicylates 03/10/2002 documented as of this encounter (statuses as of 02/25/2024) Medications ONETOUCH DELICA LANCING DEV MISCIndications:D M type 2, goal A1C 7-8 Use to test blood sugar 3 times daily 1 Device 0 2 Active ONETOUCH DELICA LANCETS FINE MISCIndications:D M type 2, goal A1C below 8.0 test blood sugar four times daily as directed; dx 250.00 100 Each 11 5 Active ONETOUCH ULTRA BLUE STRPIndications:D iabetes mellitus, type II ([facility]) Use up to four times a day [...] goal of less than 8.0% ([facility]) Use with insulins - 4 times a [...] Ophthalmic Solution (Combigan)Indicat ions:Stable angina ([facility]),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[facility]),Other specified glaucoma one drop to both eyes twice daily 10 mL 3 3 Active FreeStyle Sheree 2 SensorIndications :Type 2 diabetes mellitus with hemoglobin A1c goal of less than 7.5% ([facility]) Use as directed. Change every 14 days. 3 Each 4 Active Incontinence Brief Large As directed 18 Each 4 Active FreeStyle Sheree 2 [place] Device Use as directed. 1 Each 2 [...] goal of less than 8.0% ([facility]) Inject 15 Units under the skin at bedtime. 3 mL 3 4 Active Insulin Lispro (1 Unit Dial) 100 UNIT/ML Subcutaneous Solution Pen-injector (HumaLOG KwikPen)Indicatio ns:Type 2 diabetes mellitus with hemoglobin A1c goal of less than 8.0% ([facility]) Inject 8 units under the skin before breakfast, 8 units before lunch and 10 units before supper. 3 mL 3 4 Active Benzonatate 100 MG Oral Capsule (Lina Bill)Indication s:Acute cough Take 1 Capsule by mouth 3 times a day as needed for Cough. Do not cut, crush, or chew. 50 Capsule 1 4 Active documented as of this encounter (statuses as of 02/25/2024) Active Problems Problem Noted Date Diagnosed Date [...] as of this encounter (statuses as of 02/25/2024) Resolved Problems Problem Noted Date Diagnosed Date [...] inactive term ACTIVE CASE MANAGEMENT-Flaco Roberts RN [phone]. 05/05/2008 12/12/2009 DIAB RENAL MANIF ADULT 09/17/200707/02 [...] as of this encounter (statuses as of 02/25/2024) Immunizations Name Administration Dates Next Due COVID-19 mRNA, LNP-s, No Pre serve, 2-Dose Series ([employer]) 10/26/2020,10/05/2020 COVID-19, MRNA-LNP, PF, 30 M CG/0.3 mL, 12 YRS AND ABOVE, IM ([employer]Comirnat) 01/30/2023 Covid-19, Mrna, Lnp-s, Pf, B ivalent, [...] encounter Miscellaneous Notes * Telephone Encounter - Ashley Zavala MD - 02/25/2024 2:50 PM EST Information included in note, documentation completed and can be faxed if needed * Telephone Encounter - Nichelle Diana LPN - 02/11/2024 4:33 PM EST DME order was placed by Dr. Mosley. Patient had a hospital follow up visit with Dr. Zavala today. Dr. Zavala, if there was any discussion about mobility difficulties or difficulty getting on and off the commode will you please be sure to include that in your note from today so that we can fax that info to [facility] along with the order. They'll likely need OV notes supporting the need. * Telephone Encounter - Rut Umana OSA - 02/11/2024 9:08 AM EST An order was requested for this patient. Name of Requesting Provider: Mandi Interactive Graphic Designer Order Requested: raised toilet seat Diagnosis/Reason for Request: difficulty with transfers If order request is for Mammogram: Is the patient having any breast symptoms? Is there a chance of ? Has the patient had any breast problems in the past? What location AND department does the patient wish to have their order completed at? [facility] Fax Number, if applicable: [phone] If the caller is not a current patient, please advise the patient to call their current PCP to havethe order's prior to being seen in our office. The patient was informed that our providers would not order anything (medication, labs, etc.) prior to being seen. documented in this encounter Plan of Treatment Upcoming Encounters Date Type Department Care Team (Late st Contact Info) Description 07/06/2024 8:30 AM EDT Nurse Only Ancillary [address] [place] [address] [place] Nurse [address] [place] [address] Health Maintenance Due Date Last Done Comments [...] Additional history exists CKD HGB USE SMARTSET 85368 10/06/202410/06, 06/14/2023, 01/30/2023, Additional history exists CKD PHOS USE SMARTSET 42807 10/06/202409/25, 01/30/2023, 01/03/2022, Additional history exists Albumin/Creatinine [...] as of this encounter Visit Diagnoses Diagnosis Other abnormalities of gait and mobility- Primary documented in this encounter Care Teams Boring Machine Set Up Operator Relationship Specialty Start Date End Date Manjeet Mosley III, MD [address] [place] [address] PCP - General 11/18/06 documented as of this encounter
--- OUTSIDE RECORDS SUMMARY | 2024-04-09 05:20 | External Medical Summary | Summary of Care ---
Author Name Unknown Organization [facility] Address [address] [place] [address] Phone [phone] Care Team Providers Care Patcher Bowling Ball Name Role Phone Dimitri EMERY MD, Manjeet Adkins Primary Care Provider [phone] Reason for Visit * Reason Comments Hospital Follow-Up Encounter Details Date Type Department Care Team (Late st Contact Info) Description 02/11/2024 10:00 AM EST Office Visit Family Practice [facility] [address] [facility] [place] [address] Ashley Zavala MD 200 [place] [address] Hospital discharge follow-up*; S/P cholecystectomy; Choledocholithiasis; Type 2 diabetes mellitus with stage 3b chronic kidney disease, with long-term current use of insulin (HCC); Essential hypertension with goal blood pressure less than 140/90; Stable angina (HCC); Gastroesophageal reflux disease without esophagitis; Vascular dementia without behavioral disturbance (HCC); Acute cough; Need for prophylactic vaccination and inoculation against influenza Allergies Active Allergy Reactions Criticality Noted Date Comments Metformin Hydrochloride 11/14/2004 GI SE Salicylates 03/10/2002 documented as of this encounter (statuses as of 02/25/2024) Medications ONETOUCH DELICA LANCING DEV MISCIndications :DM [...] Ophthalmic Solution (Combigan)Indic ations:Stable angina ([facility]),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[facility]),Other specified glaucoma one drop to both eyes twice daily 10 mL 3 10/03/19 23 Active FreeStyle Sheree 2 SensorIndicatio ns:Type 2 diabetes mellitus with hemoglobin A1c goal of less than 7.5% ([facility]) Use as directed. Change every 14 days. 3 Each 11 06/06/19 24 Active Incontinence Brief Large As directed 18 Each 06/07/19 24 Active FreeStyle Sheree 2 [place] Device Use as directed. 1 Each 2 [...] or chew 40 Tablet 09/12/19 24 Active Famotidine 20 MG Oral Tablet (Pepcid) [...] DAY 90 Tablet 3 10/25/19 24 Active Terazosin HCl 2 MG Oral CapsuleIndicati ons:Edema, unspecified type TAKE ONE CAPSULE AT BEDTIME 28 Capsule 5 01/16/20 24 Active Vitamin D High Potency 25 MCG (1000 UT) Oral Capsule (Cholecalcifero l) EVERY OTHER DAY 14 Capsule 5 01/17/20 24 Active Insulin Glargine Solostar 100 UNIT/ML Subcutaneous Solution Pen-injector (Lantus SoloStar)Indica tions:Type 2 diabetes mellitus with hemoglobin A1c goal of less than 8.0% (HCC) Inject 15 Units under the skin at bedtime. 3 mL 3 02/05/20 24 Active Insulin Lispro (1 Unit Dial) 100 UNIT/ML Subcutaneous Solution Pen-injector (HumaLOG KwikPen)Indicat ions:Type 2 diabetes mellitus with hemoglobin A1c goal of less than 8.0% (HCC) Inject 8 units under the skin before breakfast, 8 units before lunch and 10 units before supper. 3 mL 3 02/05/20 24 Active Benzonatate 100 MG Oral Capsule (Tessalon Perles)Indicati ons:Acute cough Take 1 Capsule by mouth 3 times a day as needed for Cough. Do not cut, crush, or chew. 50 Capsule 1 02/11/20 24 Active Amoxicillin-Pot Clavulanate 500-125 MG Oral Tablet (Augmentin)Vivienne cations:Communi ty acquired pneumonia of left lower lobe of lung Take 1 Tablet by mouth every 12 hours for 7 days. 14 Tablet 11/04/19 24 024 Discontinued Benzonatate 100 MG Oral Capsule (Tessalon Perles)Indicati ons:Acute cough Take 1 Capsule by mouth 3 times a day as needed for Cough. Do not cut, crush, or chew. 50 Capsule 1 01/13/20 24 024 Discontinued(Re fill) documented as of this encounter (statuses as [...] inactive term ACTIVE CASE MANAGEMENT-Flaco Roberts RN [phone]. 05/05/2008 12/12/2009 DIAB RENAL MANIF ADULT 09/17/200707/02 [...] mRNA, LNP-s, No Pre serve, 2-Dose Series ([employer]) 10/26/2020,10/05/2020 COVID-19, MRNA-LNP, PF, 30 M CG/0.3 mL, 12 YRS AND ABOVE, IM ([facility]) 01/30/2023 Covid-19, Mrna, Lnp-s, Pf, B [...] Sign Reading Time Taken Comments Blood Pressure 102/50 02/11/2024 10:14 AM EST Pulse 65 02/11/2024 10:14 AM EST Temperature 35.8 C (96.5 F) 02/11/2024 10:[address] Respiratory Rate 16 02/11/2024 10:14 AM EST Oxygen Saturation 95% 02/11/2024 10:14 AM EST Inhaled Oxygen Concentration - - Weight 70.8 kg (156 lb 1.3 oz) 02/11/2024 10:14 AM EST Height - - Body Mass Index 29.49 07/03/2023 8:37 AM EDT documented in this encounter Progress Notes * Ashley Zavala MD - 02/11/2024 10:23 AM EST Subjective Chief Complaint Patient presents with Hospital Follow-Up HPI: Nelson Arenas is a 88 year old male. The following issues were addressed today: Date of admission: 01/27/24 Date of discharge: 02/04/24 Date of KOFI phone call: 02/05/24 Hospital course: Patient with hypertension, type 2 DM, GERD, dyslipidemia,stable angina, and vascular dementia presented to the ER with abdominal pain. Was admitted for choledocholithiasis. He underwent ERCP on 01/28/24 that showed filling defect on cholangiogram. Sphincterotomy was performed and bile duct swept with balloon. He ultimately underwent laparoscopic cholecystectomy on 01/30/24. Remained stable following surgery with improvement in abdominal pain and toleration of diet. He was discharged home on 02/04/24. Tests/studies pending at time of discharge: None Home/outpatient services ordered: None, continue caregiver through [facility] Course since hospitalization: Daughter provides history. She reports he has been feeling well and has not complained of abdominal pain since discharge. Was using Tylenol initially but has not needed in the past few days. He denies diarrhea, complaints of nausea, or vomiitng. Incisions are well-healing. Daughter notes he has had a persistent dry cough and is requesting a prescription for Tessalon perles, which work well for him. The patient requires assistance with ADLs, including transferring on and off commode, which is provided by either a caregiver or family. Patient utilizes a wheelchair for mobility and remains withoutfalls. Review of Systems: See HPI Objective BP 102/50 | Pulse 65 | Temp 96.5 F (35.8 C) (Tympanic) | Resp 16 | Wt 156 lb 1.3 oz (70.8 kg) |SpO2 95% | BMI 29.49 kg/m | BSA 1.75 m Wt Readings from Last 3 Encounters: 02/11/24 156 lb 1.3 oz (70.8 kg) 11/04/23 160 lb (72.6 kg) 07/03/23 160 lb (72.6 kg) BP Readings from Last 3 Encounters: 02/11/24 102/50 11/04/23 102/56 10/07/23 102/60 General: Well-appearing, no acute distress Cardiovascular: Regular rate and rhythm Respiratory: Good respiratory effort, breath sounds equal and clear to auscultation bilaterally Abdomen: Soft, non-distended, non-tender, normoactive bowel sounds Skin: Incisions clean, dry, and intact Neurological: Alert Psychiatric: Appropriate mood and affect Assessment & Plan 1. Hospital discharge follow-up - DISCH MED RECON CUR MED LIS 2. S/P cholecystectomy 3. Choledocholithiasis Patient is doing well s/p lap aubrey with minimal pain and no complaints of diarrhea. Recommended hefollow-up with [facility] surgery as scheduled. 4. Type 2 diabetes mellitus with stage 3b chronic kidney disease, with long-term current use of insulin (HCC) Most recent Hgb A1c is 8.2, just slightly above goal of <8.0 for age. Continue current insulin regimen. Labs from hospitalization reviewed. CKD complicated by JENNIFER which resolved by time of discharge. 5. Essential hypertension with goal blood pressure less than 140/90 Well-controlled. Continue current medications (metoprolol 12.5mg BID, furosemide 40mg daily). 6. Stable angina (HCC) Stable. Continue statin, metoprolol, ASA. Has nitro for use PRN. 7. Gastroesophageal reflux disease without esophagitis Stable. Continue omeprazole 20mg daily and famotidine 20mg BID. 8. Vascular dementia without behavioral disturbance (HCC) Stable. Continue donepezil 10mg and statin. 9. Acute cough - Benzonatate 100 MG Oral Capsule (Tessalon Perles); Take 1 Capsule by mouth 3 times a day as needed for Cough. Do not cut, crush, or chew. Dispense: 50 Capsule; Refill: 1 10. Need for prophylactic vaccination and inoculation against influenza - INFLUENZA VAC., TRIVALENT, HD, PF, 65 AND ABOVE, 0.5 ML IM (FLUZONE HD) This note was electronically signed by Ashley Zavala MD I spent a total of 40-54 minutes (exact time 41 mins) on the date of service in preparation, delivery, and documentation of the care provided to Nelson Arenas excluding any time spent in the performance of separately billed services or time spent by another provider/QHP. documented in this encounter Nursing Notes * Joanne Reynolds LPN - 02/11/2024 10:10 AM EST Nelson Arenas presents for hospital follow up. Medications & HM reviewed. documented in this encounter Plan of Treatment Upcoming Encounters Date Type Department Care Team (Late st Contact Info) Description 07/06/2024 8:30 AM EDT Nurse Only Ancillary [address] [place] [address] [place], Nurse [address] [place] [address] Health Maintenance Due Date Last Done Comments [...] Additional history exists CKD HGB USE SMARTSET 38624 10/06/202410/06, 06/14/2023, 01/30/2023, Additional history exists CKD PHOS USE SMARTSET 93403 10/06/202409/25, 01/30/2023, 01/03/2022, Additional history exists Albumin/Creatinine [...] as of this encounter Visit Diagnoses Diagnosis Hospital discharge follow-up- Primary Other follow-up examination S/P cholecystectomy Other acquired absence of organ Choledocholithiasis Calculus of bile duct without mention of cholecystitis or obstruction Type 2 diabetes mellitus with stage 3b chronic kidney disease, with long-term current use of insulin (HCC) Essential hypertension with goal blood pressure less than 140/90 Stable angina (HCC) Other and unspecified angina pectoris Gastroesophageal reflux disease without esophagitis Esophageal reflux Vascular dementia without behavioral disturbance (HCC) Vascular dementia, uncomplicated Acute cough Need for prophylactic vaccination and inoculation against influenza documented in this encounter Care Teams Patcher Bowling Ball Relationship Specialty Start Date End Date Manjeet Mosley III, MD [address] [facility] [place] [address] PCP - General 11/18/06 documented as of this encounter"
--- OUTSIDE RECORDS SUMMARY | 2024-04-09 05:20 | External Medical Summary | Summary of Care ---
Author Name Unknown Organization [facility] Address [address] [place] [address] Phone [phone] Care Team Providers Care Saloon Keeper Name Role Phone Dimitri EMERY MD, Manjeet Adkins Primary Care Provider [phone] Reason for Visit * Reason Onset Date Comments Order Request 02/11/2024 Encounter Details Date Type Department Care Team (Late st Contact Info) Description 02/11/2024 Telephone Family Practice [facility] 200 [place] [address] Manjeet Mosley III, MD [address] [place] [address] Order Request Allergies Active Allergy Reactions Criticality [...] BLUE STRPIndications:D iabetes mellitus, type II ([facility]) Use up to four times a day [...] of less than 8.0% ([facility]) Use with insulins - 4 times a [...] Solution (Combigan)Indicat ions:Stable angina ([facility]),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 Change every 14 days. 3 Each 4 Active Incontinence Brief Large As directed 18 Each 4 Active FreeStyle Sheree 2 [place] Device Use as directed. 1 Each 2 [...] of less than 8.0% ([facility]) Inject 15 Units under the skin at bedtime. 3 mL 3 4 Active Insulin Lispro (1 Unit Dial) 100 UNIT/ML Subcutaneous Solution Pen-injector (HumaLOG KwikPen)Indicatio ns:Type 2 diabetes mellitus with hemoglobin A1c goal of less than 8.0% ([facility]) Inject 8 units under the skin before [...] inactive term ACTIVE CASE MANAGEMENT-Flaco Roberts RN [phone]. 05/05/2008 12/12/2009 DIAB RENAL MANIF ADULT 09/17/200707/02 [...] mRNA, LNP-s, No Pre serve, 2-Dose Series ([employer]) 10/26/2020,10/05/2020 COVID-19, MRNA-LNP, PF, 30 M CG/0.3 mL, 12 YRS AND ABOVE, IM ([employer]) 01/30/2023 Covid-19, Mrna, Lnp-s, Pf, B ivalent, 30 Mcg, IM, 12 yrs and above (Pfizer) 03/01/2022 Pneumococcal Conjugate Vacc, 13 Valent (Prevnar) 05/06/2014 Pneumococcal Polysaccharide PPV23 (Pneumovax) 12/28/2004 Season Influenza, Quad, PF, Adjuvanted, 65+ Yrs, IM (FLUAD) 11/05/2019 Seasonal Influenza Vac., MDV , IM, 0.5 mL (Fluzone) 11/19/2013,01/02/2013,11/27/2011,01/01,12/01/2009,03/07/2009,01/07/2008 ,12/09/2006,12/12/2005,12/28/2004 Seasonal Influenza, High Dos e, Trivalent, PF, [...] encounter Miscellaneous Notes * Telephone Encounter - Katie Dennis NA - 02/25/2024 6:51 PM EST DME order and office notes faxed to [facility]. Confirmation received. * Telephone Encounter - Ashley Zavala MD [...] that we can fax that info to [facility] along with the order. They'll likely need OV notes supporting the need. * Telephone Encounter - Rut Umana OSA - 02/11/2024 9:08 AM EST An order was requested for this patient. Name of Requesting Provider: Mandi Patient Accounts Specialist Order Requested: raised toilet seat Diagnosis/Reason for Request: difficulty with transfers If order request is for Mammogram: Is the patient having any breast symptoms? Is there a chance of ? Has the patient had any breast problems in the past? What location AND department does the patient wish to have their order completed at? [facility] Fax Number, if applicable: [phone] If the caller is not a current [...] 07/06/2024 8:30 AM EDT Nurse Only Ancillary [address] [place] [address] [place], Nurse [address] [place] [address] Health Maintenance Due Date Last Done Comments [...] Additional history exists CKD HGB USE SMARTSET 93929 10/06/202410/06, 06/14/2023, 01/30/2023, Additional history exists CKD PHOS USE SMARTSET 55099 10/06/202409/25, 01/30/2023, 01/03/2022, Additional history exists Albumin/Creatinine [...] Primary documented in this encounter Care Teams Saloon Keeper Relationship Specialty Start Date End Date Manjeet Mosley III, MD [address] [place] [address] PCP - General 11/18/06 documented as of this encounter
[2024-04-09 06:31] LABS: Adenovirus PCR Not Detected (NotDetected); Bordetella parapertussis PCR Not Detected (NotDetected); Bordetella pertussis PCR Not Detected (NotDetected); Chlamydia pneumoniae PCR Not Detected (NotDetected); Coronavirus 229E PCR Not Detected (NotDetected); Coronavirus CoV-2 (COVID19)PCR Not Detected (NotDetected); Coronavirus HKU1 PCR Not Detected (NotDetected); Coronavirus NL63 PCR Not Detected (NotDetected); Coronavirus OC43PCR Not Detected (NotDetected); Human Metapneumovirus PCR Not Detected (NotDetected); Influenza A PCR Not Detected (NotDetected); Influenza B PCR Not Detected (NotDetected); Mycoplasma pneumoniae PCR Not Detected (NotDetected); Parainfluenza Virus 1 PCR Not Detected (NotDetected); Parainfluenza Virus 2 PCR Not Detected (NotDetected); Parainfluenza Virus 3 PCR Not Detected (NotDetected); Parainfluenza Virus 4 PCR Not Detected (NotDetected); Respiratory Syncytial VirusPCR Not Detected (NotDetected); Rhinovirus/Enterovirus PCR Not Detected (NotDetected)
--- NOTE | 2024-04-09 06:38 | Emergency Department Note ---
Impression & Plan Gastroenteritis due to norovirus, Nausea vomiting and diarrhea, Acute dehydration ED Provider Note NAME: JENNIFER GROVE AGE: 88 SEX: M : 1935 ARRIVES VIA: Ambulance INFORMANT: Patient, family at bedside ED PROVIDER(S): Yuriy Silva MD CHIEF COMPLAINT: Nausea vomiting, diarrhea MEDICAL DECISION MAKING: Patient presents with the above with family bedside. Patient at baseline. IV was established and blood work was obtained along with a [id number] BMP and CT abdomen pelvis. Patient was ordered IV fluids and antiemetics. Stool studies also sent. Patient positive for norovirus. The patient's blood work with a white count of 14 hemoglobin 11 which is at baseline. Platelet count is unremarkable. Patient's potassium of 5.4. The patient did receive some IV fluids. Creatinine 1.85 patient's baseline has been as low as 1.4 in the relatively near past. Patient did receive IV fluids. Patient's [employer] respiratory panel was negative. The patient's chest x-ray shows possible atelectasis. CT abdomen pelvis patient had a thick-walled urinary bladder which could be related to cystitis. Pneumobilia noted but the patient does have a prior history of intervention status post cholecystectomy. No focal right upper quadrant pain. He did speak with the patient's family and after further discussion the patient does live at a private residence with only family for caretakers they do not feel as though they are able to adequately take care of him at this time. Patient does have some associated dehydration. Urinalysis still pending. I did speak with the on-call hospital service Dr. Huber and the patient was admitted to medicine service. Discussion w/ other healthcare providers: None Prior /Outside records reviewed: I reviewed part of a discharge summary from February 04, [address] Kearney. Patient with a known history of presumptive CAD hypertension hyperlipidemia type 2 diabetes baseline creatinine 1.5 chronic anemia baseline hemoglobin 11 dementia tremors neuropathy GERD macular degeneration glaucoma. Patient was admitted that time for choledocholithiasis. Patient's did have an ERCP on January 27 and cholecystectomy on January 30, 2024. Differential diagnosis: Appendicitis, testicular torsion, UTI, diverticulitis, obstruction, renal colic, mesenteric adenitis, enteririts, PUD, pancreatitis, biliary pathology, hernia, volvulus, constipation, as well as other pathologies were considered. Diagnostics, as interpreted by me: ECG: none Cardiac monitoring: An order was placed for continuous cardiac monitoring. The monitor shows a rate of 87 with rhythm. Patient was placed on pulse oximetry Medical decision rules: none Imaging studies: I informally interpreted the patient's CT abdomen pelvis does not show evidence of obvious obstruction with formal report to follow. HPI: Patient presents due to concern for nausea vomiting diarrhea which began around 8 PM last evening. The patient currently resides at the [facility]. Family bedside does provide some interpretation as the patient does speak and makes of [place] and Afghan. They are comfortable with doing so. Patient has had complaints of abdominal pain but has been intermittent. History is hard to hypnotherapist given the patient's history of dementia and the fact that the patient will sometimes complain of something and then moments later not complain of it at all. He did arrive with liquid stool. Patient is at baseline per family. No falls or trauma. The patient did have last admission in January but did not require transfer at that time. Patient without chest pain. He has had cough which has been nonproductive. No prior history of smoking or alcohol use. Patient does have a history of Parkinson's. PAST MEDICAL HISTORY: See Below PAST SURGICAL HISTORY: See Below SOCIAL HISTORY: See Below HOME MEDICATIONS: See Below ALLERGIES: See Below VITALS: See Below PHYSICAL EXAMINATION: GENERAL: NAD, non-toxic. EYE EXAM: Normal conjunctiva. PERRL, no anisocoria and EOM's grossly intact w/o pain. OROPHARYNX: Dry mucus membranes, grossly normal dentition. NECK: Trachea midline, no stridor. Supple, no nuchal rigidity, no adenopathy, non-tender. No signs of meningismus. FROM of the neck with good chin to chest and neck extension. LUNGS: Clear to auscultation. Normal chest wall mechanics. HEART: NSR, no MRG. ABDOMEN: Abdomen soft, non-tender, no masses, no rebound or guarding. BACK: No CVA TTP. SKIN: No rashes and no bruising. UPPER EXTREMITIES: Upper extremities are grossly normal. LOWER EXTREMITIES: Grossly normal, no edema. NEURO EXAM: Awake and alert follows basic commands, cranial nerves II-XII grossly intact, normal speech, moves all 4 extremities. Past Med/Surg History Problem List (Updated 04/09/24 @ 13:40 by Yuriy Silva MD) Gastroenteritis due to norovirus (Acute) Acute dehydration (Acute) Nausea vomiting and diarrhea (Acute) Hx laparoscopic cholecystectomy (01/30/24) Laparoscopic Cholecystectomy(Not Applicable) - Adalberto Stokes, Transaminitis (Acute) Choledocholithiasis (Acute) Coarse tremors (Chronic) Hypoxia (Acute) Sepsis (Acute) Type 2 DM with CKD stage 3 and hypertension Acute renal failure superimposed on stage 3 chronic kidney disease Pneumonia (Acute) Generalized weakness (Acute) Fall Pneumonia (Acute) Weakness (Acute) Medical History Diabetes Surgical History No pertinent past surgical history Family History Other Family history non-contributory Social History Smoking Status: Unknown if ever smoked Hx Alcohol Use: No Hx Substance Use: No Preferred Language: Afghan Communication Ability: Effective Communication Ability Comment: speaks divehi, has dementia Dry Cell Tester Required: Yes Beliefs That Will Affect Care: None marital status: Single Current Living Situation: Family Current Living Situation Comment: 24hr care current occupational status: retired Feels Safe at Home: Yes Assistive Devices: Walker and Wheelchair Allergies Allergies Allergy/AdvReac Type Severity Reaction Status Date / Time metformin Allergy Unknown UNK Verified 02/24/24 09:12 salicylates Allergy Unknown . Verified 02/24/24 09:12 Home Meds Home Medications Medication Instructions Recorded Confirmed aspirin 81 mg tablet,delayed 81 mg PO QAM 03/07/18 04/09/24 release brimonidine 0.2 %-timolol 0.5 % 1 drp OPB UD 03/07/18 04/09/24 eye drops (Combigan) donepezil 10 mg tablet 10 mg PO QPM 03/07/18 04/09/24 finasteride 5 mg tablet 5 mg PO QAM 03/07/18 04/09/24 furosemide 40 mg tablet (Lasix) 40 mg PO UD 03/07/18 04/09/24 gabapentin 300 mg capsule 600 mg PO BID 03/07/18 04/09/24 (Neurontin) metoprolol tartrate 25 mg tablet 12.5 mg PO BID 03/07/18 04/09/24 nitroglycerin 0.4 mg sublingual 0.4 mg sublingual UD PRN Chest Pain 03/07/18 04/09/24 tablet omeprazole 20 mg capsule,delayed 20 mg PO QAM 03/07/18 04/09/24 release rosuvastatin 20 mg tablet 20 mg PO QAM 03/07/18 04/09/24 terazosin 2 mg capsule 2 mg PO UD 03/07/18 04/09/24 gabapentin 100 mg capsule 200 mg PO HS 03/15/19 04/09/24 benzonatate 100 mg capsule 100 mg PO UD PRN Cough 01/26/24 04/09/24 cholecalciferol (vitamin D3) 25 1,000 unit PO Q OTHER DAY 01/26/24 04/09/24 mcg (1,000 unit) capsule (Vitamin D3) famotidine 20 mg tablet 20 mg PO BID 01/26/24 04/09/24 guaifenesin 600 mg tablet, 600 mg PO UD PRN Congestion 01/26/24 04/09/24 extended release 12 hr sertraline 50 mg tablet 25 mg PO QAM 01/26/24 04/09/24 insulin lispro 100 unit/mL 8 - 10 unit subcut UD 04/09/24 04/09/24 subcutaneous pen (Humalog KwikPen (U-100) Insulin) Previous Rx's Medication Instructions Recorded insulin glargine 100 unit/mL (3 15 unit (0.15 mL) subcut HS #0 mL 02/03/24 mL) subcutaneous pen (Lantus Solostar U-100 Insulin) Results & Data (ED) Vital Signs Vital Signs - 24 hr 04/09/24 05:21 04/09/24 05:21 04/09/24 05:32 Temperature 36.7 C Temperature Source Axillary Pulse Rate 86 88 Pulse Rate from SpO2 Sensor Pulse Rhythm Regular Regular Pulse Strength Normal Respiratory Rate 20 20 Respiratory Effort / Characteristics Non-Labored Spontaneous Respiratory Depth Normal Respiratory Pattern Regular Blood Pressure 132/85 132/85 Blood Pressure Mean 100 107 Blood Pressure Position Lying Pulse Oximetry 97 97 Oxygen Delivery Method Room Air Room Air Sepsis Recent Fever Within 48 Hours No Sepsis New/Unexplained Change in Mental Status N/A Sepsis Action Taken by Nursing No Action Required 04/09/24 05:34 04/09/24 05:57 04/09/24 06:00 Temperature Temperature Source Pulse Rate 88 86 88 Pulse Rate from SpO2 Sensor 87 88 Pulse Rhythm Pulse Strength Respiratory Rate 19 17 Respiratory Effort / Characteristics Respiratory Depth Respiratory Pattern Blood Pressure Blood Pressure Mean Blood Pressure Position Pulse Oximetry 95 96 Oxygen Delivery Method Sepsis Recent Fever Within 48 Hours Sepsis New/Unexplained Change in Mental Status Sepsis Action Taken by Nursing 04/09/24 06:27 04/09/24 06:30 04/09/24 06:30 Temperature Temperature Source Pulse Rate 87 Pulse Rate from SpO2 Sensor 85 Pulse Rhythm Pulse Strength Respiratory Rate 18 Respiratory Effort / Characteristics Respiratory Depth Respiratory Pattern Blood Pressure 136/71 136/71 Blood Pressure Mean 116 116 Blood Pressure Position Pulse Oximetry 77 L Oxygen Delivery Method Sepsis Recent Fever Within 48 Hours Sepsis New/Unexplained Change in Mental Status Sepsis Action Taken by Nursing 04/09/24 06:30 04/09/24 06:33 04/09/24 06:36 Temperature Temperature Source Pulse Rate 86 87 Pulse Rate from SpO2 Sensor 86 89 Pulse Rhythm Pulse Strength Respiratory Rate 18 21 Respiratory Effort / Characteristics Respiratory Depth Respiratory Pattern Blood Pressure 136/71 Blood Pressure Mean 116 Blood Pressure Position Pulse Oximetry 93 93 Oxygen Delivery Method Sepsis Recent Fever Within 48 Hours Sepsis New/Unexplained Change in Mental Status Sepsis Action Taken by Nursing 04/09/24 07:00 04/09/24 07:06 04/09/24 07:21 Temperature Temperature Source Pulse Rate 87 87 Pulse Rate from SpO2 Sensor 89 87 Pulse Rhythm Pulse Strength Respiratory Rate 17 30 H Respiratory Effort / Characteristics Respiratory Depth Respiratory Pattern Blood Pressure 122/64 Blood Pressure Mean 100 Blood Pressure Position Pulse Oximetry 96 92 Oxygen Delivery Method Sepsis Recent Fever Within 48 Hours Sepsis New/Unexplained Change in Mental Status Sepsis Action Taken by Nursing 04/09/24 07:35 04/09/24 07:42 04/09/24 07:48 Temperature Temperature Source Pulse Rate 87 87 Pulse Rate from SpO2 Sensor 87 86 Pulse Rhythm Pulse Strength Respiratory Rate 17 20 Respiratory Effort / Characteristics Respiratory Depth Respiratory Pattern Blood Pressure 128/51 L Blood Pressure Mean 89 Blood Pressure Position Pulse Oximetry 94 93 Oxygen Delivery Method Sepsis Recent Fever Within 48 Hours Sepsis New/Unexplained Change in Mental Status Sepsis Action Taken by Nursing 04/09/24 08:00 04/09/24 08:06 04/09/24 09:42 Temperature Temperature Source Pulse Rate 87 76 Pulse Rate from SpO2 Sensor 87 Pulse Rhythm Pulse Strength Respiratory Rate 17 Respiratory Effort / Characteristics Respiratory Depth Respiratory Pattern Blood Pressure 108/59 L Blood Pressure Mean 96 Blood Pressure Position Pulse Oximetry 94 Oxygen Delivery Method Sepsis Recent Fever Within 48 Hours Sepsis New/Unexplained Change in Mental Status Sepsis Action Taken by [facility] Medications Current Medication List: was personally reviewed by me Laboratory Data Attestation: I reviewed the patient's lab results. 04/09/24 06:30 04/09/24 08:22 Lab Results 04/09/24 04/09/24 04/09/24 Range/Units 05:30 06:30 06:50 WBC 14.42 H (4.8-10.8) K/ul RBC 3.91 L (4.70-6.10) M/uL Hgb 11.1 L (14.0-18.0) g/dl POC Hgb (14.0-18.0) g/dl Hct 34.4 L (42.0-52.0) % POC Hct (42-52) % MCV 88.0 (80.0-100.0) fL MCH 28.4 (25.0-34.0) pg MCHC 32.3 (32.0-36.0) g/dL RDW Std Deviation 48.5 H (36.4-46.3) fL RDW Coeff of Damaris 15.1 H (11.5-14.5) % Plt Count 252 (130-400) K/uL MPV 10.8 (9.4-12.4) fL Immature Gran % (Auto) 0.4 % Neut % (Auto) 94.0 % Lymph % (Auto) 1.6 % [place] % (Auto) 3.7 % Eos % (Auto) 0.2 % Baso % (Auto) 0.1 % Neut # (Auto) 13.55 H (1.40-6.50) K/uL Lymph # (Auto) 0.23 L (1.20-3.40) K/uL [place] # (Auto) 0.53 (0.11-0.59) K/uL Eos # (Auto) 0.03 (0.00-0.50) K/uL Baso # (Auto) 0.02 (0.00-0.20) K/uL Immature Gran # (Auto) 0.06 (0.01-0.20) K/uL Toxic Vacuolation 1+ POC Sodium (135-144) mmol/L Sodium 138 (136-145) mmol/L POC Potassium (3.3-5.0) mmol/L Potassium TNP POC Chloride (101-112) mmol/L Chloride 104 (98-107) mmol/L Carbon Dioxide 27 (21-32) mmol/L POC Total CO2 (24-31) mmol/L Anion Gap 7 (3-11) POC Anion Gap (16-25) mmol/L POC BUN (7-18) mg/dl BUN 43 H (6-23) mg/dl Creatinine 1.85 H (0.6-1.4) mg/dl POC Creatinine (0.6-1.3) mg/dl Est Cr Clr Drug Dosing Not Reportable eGFR 34.60 BUN/Creatinine Ratio 23.2 H (10-20) Glucose 162 H (70-99(Fasting)) mg/dl POC Glucose (other) (70-99) mg/dl Calcium 8.6 (8.6-10.3) mg/dl POC Ioniz Calcium Roderick (1.12-1.32) mmol/l Magnesium 2.2 (1.7-2.4) mg/dl Total Bilirubin 0.4 (0.2-1.0) mg/dl AST TNP ALT 35 (7-52) U/L Alkaline Phosphatase 78 (34-104) U/L Total Creatine Kinase 57 (30-223) U/L Troponin I High Sens 11.6 (0-20) pg/ml Total Protein 7.7 (6.0-8.3) gm/dl Albumin 3.4 (3.4-5.0) gm/dl Globulin 4.3 H (2.5-4.0) gm/dl Albumin/Globulin Ratio 0.8 L (0.9-2) Lipase 11 (11-82) U/L Procalcitonin (0-0.5) ng/ml TSH 0.519 (0.300-4.500) uIu/ml Stl C. cayetanensis PCR Not Detected (NotDetected) Stool Rotavirus A PCR Not Detected (NotDetected) Stl Adenov F 40/41 PCR Not Detected (NotDetected) Stool Astrovirus (PCR) Not Detected (NotDetected) Stool Campylobacter PCR Not Detected (NotDetected) Stl C. diff Tox B Gene Negative Cdiff Gene (Neg) Stool Cryptosporidium PCR Not Detected (NotDetected) Stl E.coli Shiga Tox PCR Not Detected (NotDetected) Stl Enterotoxigenic E PCR Not Detected (NotDetected) Stool EPEC (PCR) Not Detected (NotDetected) Stool EAEC (PCR) Not Detected (NotDetected) Stl E. histolytica PCR Not Detected (NotDetected) Stool Giardia Lamblia PCR Not Detected (NotDetected) Stool Salmonella PCR Not Detected (NotDetected) Stool Sapovirus (PCR) Not Detected (NotDetected) Stl P. shigelloides PCR Not Detected (NotDetected) Stl Shigella/EIEC PCR Not Detected (NotDetected) St Y.enterocolitica PCR Not Detected (NotDetected) Stool Vibrio (PCR) Not Detected (NotDetected) Stl Vibrio cholerae PCR Not Detected (NotDetected) Stl Norovirus GI/GII PCR DETECTED A* (NotDetected) Adenovirus (PCR) Not Detected (NotDetected) B. pertussis DNA (PCR) Not Detected (NotDetected) B.parapertussis DNA PCR Not Detected (NotDetected) C. pneumoniae DNA (PCR) Not Detected (NotDetected) Coronavirus OC43 (PCR) Not Detected (NotDetected) Coronavirus HKU1 (PCR) Not Detected (NotDetected) Coronavirus 229E (PCR) Not Detected (NotDetected) SARS-CoV-2 (PCR) Not Detected (NotDetected) Coronavirus NL63 (PCR) Not Detected (NotDetected) Human Metapneumovir PCR Not Detected (NotDetected) Influenza Type A (PCR) Not Detected (NotDetected) Influenza Type B (PCR) Not Detected (NotDetected) M. pneumoniae (PCR) Not Detected (NotDetected) Parainfluenza 1 (PCR) Not Detected (NotDetected) Parainfluenza 2 (PCR) Not Detected (NotDetected) Parainfluenza 3 (PCR) Not Detected (NotDetected) Parainfluenza 4 (PCR) Not Detected (NotDetected) RSV (PCR) Not Detected (NotDetected) Entero/Rhino (PCR) Not Detected (NotDetected) 04/09/24 04/09/24 04/09/24 Range/Units 07:00 08:22 08:29 WBC (4.8-10.8) K/ul RBC (4.70-6.10) M/uL Hgb (14.0-18.0) g/dl POC Hgb 11.2 L (14.0-18.0) g/dl Hct (42.0-52.0) % POC Hct 33 L (42-52) % MCV (80.0-100.0) fL MCH (25.0-34.0) pg MCHC (32.0-36.0) g/dL RDW Std Deviation (36.4-46.3) fL RDW Coeff of Damaris (11.5-14.5) % Plt Count (130-400) K/uL MPV (9.4-12.4) fL Immature Gran % (Auto) % Neut % (Auto) % Lymph % (Auto) % [place] % (Auto) % Eos % (Auto) % Baso % (Auto) % Neut # (Auto) (1.40-6.50) K/uL Lymph # (Auto) (1.20-3.40) K/uL [place] # (Auto) (0.11-0.59) K/uL Eos # (Auto) (0.00-0.50) K/uL Baso # (Auto) (0.00-0.20) K/uL Immature Gran # (Auto) (0.01-0.20) K/uL Toxic Vacuolation POC Sodium 140 (135-144) mmol/L Sodium (136-145) mmol/L POC Potassium 5.6 H (3.3-5.0) mmol/L Potassium 5.4 H POC Chloride 105 (101-112) mmol/L Chloride (98-107) mmol/L Carbon Dioxide (21-32) mmol/L POC Total CO2 25 (24-31) mmol/L Anion Gap (3-11) POC Anion Gap 16.0 (16-25) mmol/L POC BUN 48 H (7-18) mg/dl BUN (6-23) mg/dl Creatinine (0.6-1.4) mg/dl POC Creatinine 2.0 H (0.6-1.3) mg/dl Est Cr Clr Drug Dosing eGFR BUN/Creatinine Ratio (10-20) Glucose (70-99(Fasting)) mg/dl POC Glucose (other) 167 H (70-99) mg/dl Calcium (8.6-10.3) mg/dl POC Ioniz Calcium Roderick 1.06 L (1.12-1.32) mmol/l Magnesium (1.7-2.4) mg/dl Total Bilirubin (0.2-1.0) mg/dl AST 29 ALT (7-52) U/L Alkaline Phosphatase (34-104) U/L Total Creatine Kinase (30-223) U/L Troponin I High Sens (0-20) pg/ml Total Protein (6.0-8.3) gm/dl Albumin (3.4-5.0) gm/dl Globulin (2.5-4.0) gm/dl Albumin/Globulin Ratio (0.9-2) Lipase (11-82) U/L Procalcitonin 0.52 H (0-0.5) ng/ml TSH (0.300-4.500) uIu/ml Stl C. cayetanensis PCR (NotDetected) Stool Rotavirus A PCR (NotDetected) Stl Adenov F 40/41 PCR (NotDetected) Stool Astrovirus (PCR) (NotDetected) Stool Campylobacter PCR (NotDetected) Stl C. diff Tox B Gene (Neg) Stool Cryptosporidium PCR (NotDetected) Stl E.coli Shiga Tox PCR (NotDetected) Stl Enterotoxigenic E PCR (NotDetected) Stool EPEC (PCR) (NotDetected) Stool EAEC (PCR) (NotDetected) Stl E. histolytica PCR (NotDetected) Stool Giardia Lamblia PCR (NotDetected) Stool Salmonella PCR (NotDetected) Stool Sapovirus (PCR) (NotDetected) Stl P. shigelloides PCR (NotDetected) Stl Shigella/EIEC PCR (NotDetected) St Y.enterocolitica PCR (NotDetected) Stool Vibrio (PCR) (NotDetected) Stl Vibrio cholerae PCR (NotDetected) Stl Norovirus GI/GII PCR (NotDetected) Adenovirus (PCR) (NotDetected) B. pertussis DNA (PCR) (NotDetected) B.parapertussis DNA PCR (NotDetected) C. pneumoniae DNA (PCR) (NotDetected) Coronavirus OC43 (PCR) (NotDetected) Coronavirus HKU1 (PCR) (NotDetected) Coronavirus 229E (PCR) (NotDetected) SARS-CoV-2 (PCR) (NotDetected) Coronavirus NL63 (PCR) (NotDetected) Human Metapneumovir PCR (NotDetected) Influenza Type A (PCR) (NotDetected) Influenza Type B (PCR) (NotDetected) M. pneumoniae (PCR) (NotDetected) Parainfluenza 1 (PCR) (NotDetected) Parainfluenza 2 (PCR) (NotDetected) Parainfluenza 3 (PCR) (NotDetected) Parainfluenza 4 (PCR) (NotDetected) RSV (PCR) (NotDetected) Entero/Rhino (PCR) (NotDetected) Administered Medications Guaifenesin (Guaifenesin 600 Mg Tabcr) 600 mg PO Q12 [facility] Stop: 05/09/24 10:44 Last Admin: 04/09/24 12:13 Dose: 600 mg Documented By: NMS Sodium Chloride (Nss) 1,000 mls @ 65 mls/hr IV .[id number] Stop: 04/10/24 10:44 Last Admin: 04/09/24 12:12 Dose: 65 mls/hr Documented By: NMS Ceftriaxone Sodium (Rocephin) 2,000 mg in 50 mls @ 100 mls/hr IV Q24H [facility] Stop: 04/19/24 12:14 Last Admin: 04/09/24 12:15 Dose: 100 mls/hr Documented By: NMS Insulin Aspart (Insulin Aspart Per Unit Charge) 0 units SC ACHS [facility] Stop: 05/09/24 11:29 Last Admin: 04/09/24 13:31 Dose: Not Given Documented By: NMS Miscellaneous (Order Awaiting Action) 1 each N/A QS [facility] Stop: 05/09/24 12:29 Last Admin: 04/09/24 12:38 Dose: Not Given Documented By: DEBBY Discontinued Medications Sodium Chloride (Nss) 500 mls @ 999 mls/hr IV .Q31M ONE Stop: 04/09/24 05:51 Last Infusion: 04/09/24 07:54 Dose: Infused Documented By: Admin: 04/09/24 07:11 Dose: 999 mls/hr Documented By: DEBBY Ondansetron HCl (Ondansetron Inj 2 Mg/Ml 2 Ml Vial) 4 mg IV NOW STA Stop: 04/09/24 05:22 Last Admin: 04/09/24 07:11 Dose: 4 mg Documented By: DEBBY Imaging Data Radiologist's Impression: Chest X-Ray 04/09/24 05:21 EXAM: XR chest 1V portable CLINICAL HISTORY: weakness TECHNIQUE: An X-ray image of the chest is obtained in AP projection. COMPARISON: 01/26/2024. FINDINGS: Rotated film, Pulmonary Parenchyma: Bibasal small subtle atelectatic bands seen. No evidence of consolidation/focal opacities/pulmonary nodule seen. No evidence of pleural effusion or pleural thickening. Heart and Mediastinum: Heart size and shape are normal. No mediastinal widening or masses. No hilar or mediastinal lymphadenopathy. Bony Thorax: Bony thorax appears intact without fractures or deformities. Soft Tissues: Soft tissues overlying the chest wall are unremarkable. IMPRESSION: 1. Bibasal small subtle atelectatic bands. 2. Otherwise no acute cardiopulmonary disease. Electronically signed by Ki Neville 04-09-2024 07:03 AM Abdomen/Pelvis CT 04/09/24 07:18 EXAM: CT abd pelvis wo con CLINICAL HISTORY: N/v/d ab pain. TECHNIQUE: Non-contrast CT of the abdomen and pelvis was performed, with the following protocol: axial images, and reconstructed coronal and sagittal images. One of the following dose reduction techniques was utilized for this exam: Automated exposure control, adjustment of the mA and/or kV according to patient size, and use of iterative reconstruction.DLP : 1275.30 mGy*cm, CTDI : 25.03 mGy. COMPARISON: Comparison is made with 01/26/2024 CT. FINDINGS: Abdomen: Liver: Normal in size, shape, and density. No focal lesions, cysts, or masses were identified. Left lobe of the liver shows air within the biliary ducts suggesting pneumobilia. Gallbladder and Biliary System: Postcholecystectomy clips seen in the gallbladder fossa, previous scan showed cholelithiasis and slightly distended gallbladder. Mildly dilated CBD measuring 11.5 mm luminal caliber showing air Pancreas: Pancreatic head, body, and tail are visualized and appear normal in size and density. No pancreatic masses or calcifications were noted. Spleen: Normal in size, shape, and density. No splenic lesions or masses were identified. Appendix: Appendix not separately appreciable from the bowel loops, same as prior. No evidence of abscess or collection in the right iliac fossa. Kidneys and Adrenal Glands: Both kidneys are normal in size, shape, and position. Cortical thickness is within normal limits. No renal calculi or hydronephrosis. A hypodense 27 x 26 mm area seen in the right kidney presents a midpole parenchymal cyst. Mild perinephric fat stranding seen bilaterally likely old changes. Adrenal glands are unremarkable. Abdominal Aorta and Vessels: The abdominal aorta and major branches are patent without evidence of an aneurysm. atherosclerotic abdominal aortic calcification seen, stable since prior Atherosclerotic calcification seen in the branches of both the internal iliac arteries and the proximal femoral vessels Pelvis: Urinary Bladder: Normal in contour and mild wall thickness of 7 mm. No intraluminal lesions. Prostate: Mildly enlarged prostate gland measures 38.8 x 38 x 40 millimeters noted showing faint parenchymal calcification,stable since prior Seminal Vesicles: Normal appearance without abnormal enlargement or mass. Calcifications seen in the corpus cavernosum/penile soft tissues, ureteral calcification may need exclusion if clinically indicated Peritoneal and Retroperitoneal Structures: No free fluid or abnormal fluid collections were identified within the abdomen or pelvis. No lymphadenopathy was noted. Bowel: Small hiatal hernia noted Small right inguinal hernia not containing any bowel loops The visualized bowel loops are normal in caliber and appearance. No evidence of bowel obstruction or wall thickening. A small 5 mm calcified focus seen in the right hemiabdomen likely old calcified lymph node, nonspecific. Bones and Soft Tissues: Reduced mineralization of the imaged bony structures seen suggests osteopenia, stable since prior. Degenerative changes seen in the imaged spine. Prominent inferior endplate Schmorl's nodes seen at L3 lumbar vertebral body. Basal lungs show few fibrotic reticular changes with minimal traction bronchiectatic stasis on the left side. Mild to minimal basal pleural thickening is also seen bilaterally IMPRESSION: 1. Pneumobilia seen in the left lobe of the liver and in the mildly dilated CBD, likely due to reflux/previous intervention, status post cholecystectomy, needs clinical correlation, New findings 2. Small hiatal hernia noted, stable since prior 3. Right renal parenchymal cyst of 27 x 26 mm seen, stable since prior 4. Enlarged prostate gland, stable since prior 5. Thick-walled urinary bladder, could be cystitis or may be sequelae of outflow hindrance / obstruction, shows slight interval resolution-improvement since prior. 6. Calcifications seen in the corpus cavernosum/penile soft tissues, ureteral calcification may need exclusion if clinically indicated, stable. 7. Focal edema seen in the skin-dermis in the midline lower back soft tissues, stable since prior. 8. Apart from the post-cholecystecomy changes, rest of the appearances remain interval stable since prior of 01/26/2024. Electronically signed by Ki Neville 04-09-2024 08:43 AM Discharge Plan Visit Data Chief Complaint: Diarrhea Stated Complaint: ILLNESS ED Provider: Yuriy Silva Discharge Problem: Gastroenteritis due to norovirus, Nausea vomiting and diarrhea, Acute dehydration
[2024-04-09 07:03] LABS: Adenovirus F 40/41 PCR Not Detected (NotDetected); Astrovirus PCR Not Detected (NotDetected); Campylobacter PCR Not Detected (NotDetected); Cryptosporidium PCR Not Detected (NotDetected); Cyclospora cayetanensis PCR Not Detected (NotDetected); Entamoeba histolytica PCR Not Detected (NotDetected); Enteroaggregative E.coli(EAEC) Not Detected (NotDetected); Enteropathogenic E.coli (EPEC) Not Detected (NotDetected); Enterotoxigenic E.coli (ETEC) Not Detected (NotDetected); Giardia lamblia PCR Not Detected (NotDetected); Plesiomonas shigelloides PCR Not Detected (NotDetected); Rotavirus A PCR Not Detected (NotDetected); Salmonella PCR Not Detected (NotDetected); Sapovirus PCR Not Detected (NotDetected); Shiga-like Toxin E.coli (STEC) Not Detected (NotDetected); Shigella/Enteroinvasive E.coli Not Detected (NotDetected); Vibrio cholerae PCR Not Detected (NotDetected); Vibrio species PCR Not Detected (NotDetected); Yersinia enterocolitica PCR Not Detected (NotDetected)
--- NOTE | 2024-04-09 07:03 | XRay Report ---
EXAM: XR chest 1V portable CLINICAL HISTORY: weakness TECHNIQUE: An X-ray image of the chest is obtained in AP projection. COMPARISON: 01/26/2024. FINDINGS: Rotated film, Pulmonary Parenchyma: Bibasal small subtle atelectatic bands seen. No evidence of consolidation/focal opacities/pulmonary nodule seen. No evidence of pleural effusion or pleural thickening. Heart and Mediastinum: Heart size and shape are normal. No mediastinal widening or masses. No hilar or mediastinal lymphadenopathy. Bony Thorax: Bony thorax appears intact without fractures or deformities. Soft Tissues: Soft tissues overlying the chest wall are unremarkable. IMPRESSION: 1. Bibasal small subtle atelectatic bands. 2. Otherwise no acute cardiopulmonary disease. Electronically signed by Ki Neville 04-09-2024 07:03 AM
[2024-04-09 07:05] LABS: Norovirus GI/GII PCR DETECTED (NotDetected)
[2024-04-09] MEDS: ONDANSETRON INJ 2 MG/ML 2 ML VIAL IV STA (07:11)
[2024-04-09] MEDS: SODIUM CHLORIDE 0.9% 500 ML IV ONE (07:11)
[2024-04-09 07:13] LABS: iSTAT Hemoglobin 11.2 g/dl (14.0-18.0); iSTAT Ionized Calcium 1.06 mmol/l (1.12-1.32); iSTAT Potassium 5.6 mmol/L (3.3-5.0)
[2024-04-09 07:17] LABS: Hematocrit (blood only) 34.4 % (42.0-52.0); Hemoglobin 11.1 g/dl (14.0-18.0); Mean Corpuscular Hemoglobin 28.4 pg (25.0-34.0); Mean Corpuscular Hgb Conc 32.3 g/dL (32.0-36.0); Mean Platelet Volume 10.8 fL (9.4-12.4); Platelet Count 252 K/uL (130-400); RDW Coefficient of Variation 15.1 % (11.5-14.5); RDW Standard Deviation 48.5 fL (36.4-46.3); Red Blood Count 3.91 M/uL (4.70-6.10); White Blood Count 14.42 K/ul (4.8-10.8)
[2024-04-09 07:18] LABS: Basophils # (auto) 0.02 K/uL (0.00-0.20); Basophils % (auto) 0.1 %; Eosinophils # (auto) 0.03 K/uL (0.00-0.50); Eosinophils % (auto) 0.2 %; Immature Granulocytes # (auto) 0.06 K/uL (0.01-0.20); Immature Granulocytes % (auto) 0.4 %; Lymphocytes # (auto) 0.23 K/uL (1.20-3.40); Lymphocytes % (auto) 1.6 %; Monocytes # (auto) 0.53 K/uL (0.11-0.59); Monocytes % (auto) 3.7 %; Neutrophils # (auto) 13.55 K/uL (1.40-6.50); Toxic Vacuolation 1+
[2024-04-09 07:50] LABS: Alanine Aminotransferase 35 U/L (7-52); Albumin Globulin Ratio 0.8 (0.9-2); Albumin Level 3.4 gm/dl (3.4-5.0); Alkaline Phosphatase 78 U/L (34-104); Anion Gap 7 (3-11); BUN Creatinine Ratio 23.2 (10-20); Bilirubin,Total 0.4 mg/dl (0.2-1.0); Blood Urea Nitrogen 43 mg/dl (6-23); Calcium 8.6 mg/dl (8.6-10.3); Carbon Dioxide 27 mmol/L (21-32); Chloride 104 mmol/L (98-107); Creatine Kinase 57 U/L (30-223); Globulin 4.3 gm/dl (2.5-4.0); Glucose 162 mg/dl (70-99(Fasting)); Lipase 11 U/L (11-82); Magnesium 2.2 mg/dl (1.7-2.4); Sodium 138 mmol/L (136-145); Thyroid Stimulating Hormone 0.519 uIu/ml (0.300-4.500); Total Protein 7.7 gm/dl (6.0-8.3); Troponin I High Sensitivity 11.6 pg/ml (0-20)
--- NOTE | 2024-04-09 08:43 | CT Scan Report ---
EXAM: CT abd pelvis wo con CLINICAL HISTORY: N/v/d ab pain. TECHNIQUE: Non-contrast CT of the abdomen and pelvis was performed, with the following protocol: axial images, and reconstructed coronal and sagittal images. One of the following dose reduction techniques was utilized for this exam: Automated exposure control, adjustment of the mA and/or kV according to patient size, and use of iterative reconstruction.DLP : 1275.30 mGy*cm, CTDI : 25.03 mGy. COMPARISON: Comparison is made with 01/26/2024 CT. FINDINGS: Abdomen: Liver: Normal in size, shape, and density. No focal lesions, cysts, or masses were identified. Left lobe of the liver shows air within the biliary ducts suggesting pneumobilia. Gallbladder and Biliary System: Postcholecystectomy clips seen in the gallbladder fossa, previous scan showed cholelithiasis and slightly distended gallbladder. Mildly dilated CBD measuring 11.5 mm luminal caliber showing air Pancreas: Pancreatic head, body, and tail are visualized and appear normal in size and density. No pancreatic masses or calcifications were noted. Spleen: Normal in size, shape, and density. No splenic lesions or masses were identified. Appendix: Appendix not separately appreciable from the bowel loops, same as prior. No evidence of abscess or collection in the right iliac fossa. Kidneys and Adrenal Glands: Both kidneys are normal in size, shape, and position. Cortical thickness is within normal limits. No renal calculi or hydronephrosis. A hypodense 27 x 26 mm area seen in the right kidney presents a midpole parenchymal cyst. Mild perinephric fat stranding seen bilaterally likely old changes. Adrenal glands are unremarkable. Abdominal Aorta and Vessels: The abdominal aorta and major branches are patent without evidence of an aneurysm. atherosclerotic abdominal aortic calcification seen, stable since prior Atherosclerotic calcification seen in the branches of both the internal iliac arteries and the proximal femoral vessels Pelvis: Urinary Bladder: Normal in contour and mild wall thickness of 7 mm. No intraluminal lesions. Prostate: Mildly enlarged prostate gland measures 38.8 x 38 x 40 millimeters noted showing faint parenchymal calcification,stable since prior Seminal Vesicles: Normal appearance without abnormal enlargement or mass. Calcifications seen in the corpus cavernosum/penile soft tissues, ureteral calcification may need exclusion if clinically indicated Peritoneal and Retroperitoneal Structures: No free fluid or abnormal fluid collections were identified within the abdomen or pelvis. No lymphadenopathy was noted. Bowel: Small hiatal hernia noted Small right inguinal hernia not containing any bowel loops The visualized bowel loops are normal in caliber and appearance. No evidence of bowel obstruction or wall thickening. A small 5 mm calcified focus seen in the right hemiabdomen likely old calcified lymph node, nonspecific. Bones and Soft Tissues: Reduced mineralization of the imaged bony structures seen suggests osteopenia, stable since prior. Degenerative changes seen in the imaged spine. Prominent inferior endplate Schmorl's nodes seen at L3 lumbar vertebral body. Basal lungs show few fibrotic reticular changes with minimal traction bronchiectatic stasis on the left side. Mild to minimal basal pleural thickening is also seen bilaterally IMPRESSION: 1. Pneumobilia seen in the left lobe of the liver and in the mildly dilated CBD, likely due to reflux/previous intervention, status post cholecystectomy, needs clinical correlation, New findings 2. Small hiatal hernia noted, stable since prior 3. Right renal parenchymal cyst of 27 x 26 mm seen, stable since prior 4. Enlarged prostate gland, stable since prior 5. Thick-walled urinary bladder, could be cystitis or may be sequelae of outflow hindrance / obstruction, shows slight interval resolution-improvement since prior. 6. Calcifications seen in the corpus cavernosum/penile soft tissues, ureteral calcification may need exclusion if clinically indicated, stable. 7. Focal edema seen in the skin-dermis in the midline lower back soft tissues, stable since prior. 8. Apart from the post-cholecystecomy changes, rest of the appearances remain interval stable since prior of 01/26/2024. Electronically signed by Ki Neville 04-09-2024 08:43 AM
[2024-04-09 09:13] LABS: Potassium 5.4 mmol/L (3.5-5.1)
[2024-04-09] MEDS ORDERED: ALBUT/IPRATROP 3MG/0.5MG NEB 3 ML VIAL NEB PRN (10:44)
[2024-04-09] MEDS ORDERED: ONDANSETRON INJ 2 MG/ML 2 ML VIAL IV PRN (10:47)
[2024-04-09] MEDS ORDERED: ACETAMINOPHEN 325 MG TAB PO PRN (10:47)
[2024-04-09] MEDS ORDERED: CARBOHYDRATES FOR HYPOGLYCEMIA PO PRN (10:47)
[2024-04-09] MEDS ORDERED: ALUMINUM/MAGNESIUM SUSP 30 ML UDC PO PRN (10:47)
[2024-04-09] MEDS ORDERED: MAGNESIUM HYDROXIDE SUSP 30 ML UDC PO PRN (10:47)
[2024-04-09] MEDS ORDERED: GLUCAGON FOR INJ 1 MG VIAL SQ PRN (10:47)
[2024-04-09] MEDS ORDERED: GLUCOSE 10 TAB/TUBE PO PRN (10:47)
[2024-04-09] MEDS ORDERED: DEXTROSE 50% 50 ML SYRINGE IV PRN (10:47)
[2024-04-09] MEDS ORDERED: GLUCOSE 40% GEL 15 GM TUBE PO PRN (10:47)
[2024-04-09] MEDS ORDERED: NITROGLYCERIN SL 0.4 MG/TAB TAB SL PRN (10:52)
--- NOTE | 2024-04-09 11:03 | History & Physical Report ---
Date of Service April 09, 2024 Assessment & Plan (1) Nausea vomiting and diarrhea: Plan Nausea, vomiting, diarrhea Norovirus gastroenteritis Patient presents with an, fever, D for 1 day. Associated with poor appetite. Patient found to have norovirus positive at ED. Admitting CTAP with multiple findings, pneumobilia in the left lobe of the liver and in the mildly dilated CBD likely status postcholecystectomy findings. Stable right renal parenchymal cyst of 27 x 26 mm seen. Stable enlarged prostate seen. Thickened urinary bladder suggestive of cystitis or severe outflow tract obstruction noted. Continue with IV hydration, monitor replete electrolytes. Repeat BMP at 3 PM, in AM. Continue with supportive care. Fall precaution. Encourage p.o. intake. Electrolyte solution by bedside to help with electrolyte replenishment. Possible viral URTI: Though respiratory BioFire negative, patient reports myalgia/sore throat, patient noted to have dry cough per daughter. Tessalon perle, Mucinex, DuoNeb as needed. Continue to provide supportive care. Possible UTI: Patient complains of pain and burning while passing, CTAP as above. WBC elevated. Start Rocephin. Probiotic. Will get urinalysis and culture. Hyperkalemia: Potassium of 5.4, slightly elevated, EKG with no hyperkalemic changes. Continue with IV fluid, repeat BMP at 3 PM. Mild dehydration: Baseline creatinine of 1.5, admitting creatinine of 1.85, does not qualify for acute kidney injury over CKD yet. Continue with IV fluid, avoid nephrotoxic's. Labs in AM. Other chronic medical conditions: Continue with/resume home meds as and when able. Presumptive CAD as per records on aspirin prophylaxis hypertension, stable hyperlipidemia, on statin Rx DM2 insulin requiring, reasonable control given chronic kidney dysfunction, hemoglobin A1c of 8.27 September 2023 . SSI . Repeat A1c in AM. chronic anemia, hemoglobin at baseline hx dementia/essential tremors/peripheral neuropathy: Patient is confused most of the day per patient's daughter. DVT prophylaxis: Heparin subcu Full code History of Present Illness Chief Complaint: N, V, D x 1 d Primary Care Provider: Manjeet Mosley MD 88-year-old male with PMH of CAD, HTN, HLD, T2DM insulin requiring, CKD [baseline creatinine of 1.5], chronic anemia [baseline hemoglobin of 11], dementia, essential tremors, peripheral neuropathy, GERD, macular degeneration, blind both eyes, glaucoma presented to the ED with nausea, vomiting, diarrhea for 1 day. Patient is confused most of the days per patient's daughter at bedside who helped with most of the history taking. Also history taking was augmented from chart review and discussion with the ER physician. Per patient daughter, patient was having nausea, vomiting, diarrhea for 1 day resulting in very poor appetite. Patient is wheelchair dependent at baseline. No fever. Patient has some dry cough, patient does report some sore throat and whole body pain at bedside exam. Patient also reports pain and burning while passing urine. Patient does not smoke/use alcohol/recreational drug per patient's daughter. Medications reviewed with patient's daughter at bedside. Full code Plan of care discussed with patient's daughter at bedside, she voiced understanding and was agreeable to plan of care. Allergies Allergy/AdvReac Type Severity Reaction Status Date / Time metformin Allergy Unknown UNK Verified 02/24/24 09:12 salicylates Allergy Unknown . Verified 02/24/24 09:12 Home Medications Medication Instructions Recorded Confirmed Type aspirin 81 mg tablet,delayed 81 mg PO QAM 03/07/18 04/09/24 History release brimonidine 0.2 %-timolol 0.5 % 1 drp OPB UD 03/07/18 04/09/24 History eye drops (Combigan) donepezil 10 mg tablet 10 mg PO QPM 03/07/18 04/09/24 History finasteride 5 mg tablet 5 mg PO QAM 03/07/18 04/09/24 History furosemide 40 mg tablet (Lasix) 40 mg PO UD 03/07/18 04/09/24 History gabapentin 300 mg capsule 600 mg PO BID 03/07/18 04/09/24 History (Neurontin) metoprolol tartrate 25 mg tablet 12.5 mg PO BID 03/07/18 04/09/24 History nitroglycerin 0.4 mg sublingual 0.4 mg sublingual UD PRN Chest Pain 03/07/18 04/09/24 History tablet omeprazole 20 mg capsule,delayed 20 mg PO QAM 03/07/18 04/09/24 History release rosuvastatin 20 mg tablet 20 mg PO QAM 03/07/18 04/09/24 History terazosin 2 mg capsule 2 mg PO UD 03/07/18 04/09/24 History gabapentin 100 mg capsule 200 mg PO HS 03/15/19 04/09/24 History benzonatate 100 mg capsule 100 mg PO UD PRN Cough 01/26/24 04/09/24 History cholecalciferol (vitamin D3) 25 1,000 unit PO Q OTHER DAY 01/26/24 04/09/24 History mcg (1,000 unit) capsule (Vitamin D3) famotidine 20 mg tablet 20 mg PO BID 01/26/24 04/09/24 History guaifenesin 600 mg tablet, 600 mg PO UD PRN Congestion 01/26/24 04/09/24 History extended release 12 hr sertraline 50 mg tablet 25 mg PO QAM 01/26/24 04/09/24 History insulin glargine 100 unit/mL (3 15 unit (0.15 mL) subcut HS #0 mL 02/03/24 04/09/24 Rx mL) subcutaneous pen (Lantus Solostar U-100 Insulin) insulin lispro 100 unit/mL 8 - 10 unit subcut UD 04/09/24 04/09/24 History subcutaneous pen (Humalog KwikPen (U-100) Insulin) Past Med/Surg History Problem List (Updated 04/09/24 @ 06:47 by Yuriy Silva MD) Acute dehydration (Acute) Nausea vomiting and diarrhea (Acute) Hx laparoscopic cholecystectomy (01/30/24) Laparoscopic Cholecystectomy(Not Applicable) - Adalberto Stokes, Transaminitis (Acute) Choledocholithiasis (Acute) Coarse tremors (Chronic) Hypoxia (Acute) Sepsis (Acute) Type 2 DM with CKD stage 3 and hypertension Acute renal failure superimposed on stage 3 chronic kidney disease Pneumonia (Acute) Generalized weakness (Acute) Fall Pneumonia (Acute) Weakness (Acute) Medical History Diabetes Surgical History No pertinent past surgical history Family History Other Family history non-contributory Social History Smoking Status: Unknown if ever smoked Hx Alcohol Use: No Hx Substance Use: No Preferred Language: Maldivian Communication Ability: Effective Communication Ability Comment: speaks grenadian, has dementia Professional Development Instructor Required: Yes Beliefs That Will Affect Care: None marital status: Single Current Living Situation: Family Current Living Situation Comment: 24hr care current occupational status: retired Feels Safe at Home: Yes Assistive Devices: Walker and Wheelchair Review of Systems Review of Systems: Negative otherwise mentioned in HPI. Physical Exam Physical Exam: GENERAL: pleasantly confused. NAD, on RA. Appears chronically illl/frail/weak. Has dementia. HEENT: No pallor, no icterus. blind both eyes. Oral mucosa dry. Generalized muscle pain on palpation over chest, belly, thigh. NECK: No JVD, no neck masses. HEART: S1 and S2 heard. Regular rate and rhythm. No murmur, no gallop. RESPIRATORY SYSTEM: Normal AP diameter. No accessory muscle use. No wheezing, bb crackles. ABDOMEN: Soft, bowel sounds present, nontender, no distention. CENTRAL NERVOUS SYSTEM: No facial droop. Speech is clear. Moves extremities. can't obey command EXTREMITIES: No edema, no erythema seen. Results & Data Results & Data Vital Signs (Past 12 Hours) Vital Signs Temp Pulse Resp BP Pulse Ox O2 Del Method 04/09/24 09:42 76 04/09/24 08:06 87 17 94 04/09/24 08:00 108/59 L 04/09/24 07:48 87 20 93 04/09/24 07:42 87 17 94 04/09/24 07:35 128/51 L 04/09/24 07:21 87 30 H 92 04/09/24 07:06 87 17 96 04/09/24 07:00 122/64 04/09/24 06:36 87 21 93 04/09/24 06:33 86 18 93 04/09/24 06:30 136/71 04/09/24 06:30 136/71 04/09/24 06:30 136/71 04/09/24 06:27 87 18 77 L 04/09/24 06:00 88 17 96 04/09/24 05:57 86 19 95 04/09/24 05:34 88 04/09/24 05:32 132/85 04/09/24 05:21 88 20 97 Room Air 04/09/24 05:21 36.7 C 86 20 132/85 97 Room Air
[2024-04-09] MEDS: SODIUM CHLORIDE 0.9% 1,000 ML IV SCH (12:12)
[2024-04-09] MEDS: guaiFENesin 600 MG TABCR PO SCH (12:13)
[2024-04-09] MEDS: cefTRIAXone SODIUM 2,000 MG/50 ML BAG IV SCH (12:15)
[2024-04-09] MEDS: INSULIN ASPART PER UNIT CHARGE SC SCH (13:31)
[2024-04-09] MEDS: CHOLECALCIFEROL 25 MCG (1000 UNITS) TAB PO SCH (13:39)
--- NOTE | 2024-04-09 15:22 | Electrocardiogram Report ---
Test Reason : Blood Pressure : */* mmHG Vent. Rate : 87 BPM Atrial Rate : 87 BPM P-R Int : 168 ms QRS Dur : 80 ms QT Int : 380 ms P-R-T Axes : 49 16 64 degrees QTcB Int : 457 ms Normal sinus rhythm with occasional Premature atrial complexes Otherwise Normal ECG When compared with ECG of 26-Jan-2024 10:45, No significant change was found Confirmed by Saurav Mcgovern ([id number]) on 04/09/2024 3:22:26 PM Referred By: Confirmed By: Saurav [email or web address]
[2024-04-09 16:32] LABS: Calcium 7.9 mg/dl (8.6-10.3); Potassium 4.9 mmol/L (3.5-5.1)
[2024-04-09] MEDS: BENZONATATE 100 MG CAPSULE PO SCH (16:36)
[2024-04-09 16:38] LABS: BUN Creatinine Ratio 22.2 (10-20); Creatinine Clr Calc Pharmacy 24.9 ml/min
[2024-04-09] MEDS: GABAPENTIN 300 MG CAP PO SCH (21:55)
[2024-04-09] MEDS: DONEPEZIL HCL 10 MG TAB PO SCH (21:58)
[2024-04-09] MEDS: GABAPENTIN 100 MG CAP PO SCH (21:58)
[2024-04-09] MEDS: FAMOTIDINE 20 MG TAB PO SCH (21:58)
[2024-04-09] MEDS: METOPROLOL TARTRATE 25 MG TAB PO SCH (21:59)
[2024-04-09] MEDS: HEPARIN SOD 5,000 UNIT/0.5 ML VIAL SQ SCH (22:19)
[2024-04-09] MEDS: LANTUS PER UNIT CHARGE SQ SCH (23:01)
[2024-04-10 08:02] LABS: Hematocrit (blood only) 31.3 % (42.0-52.0); Hemoglobin 9.6 g/dl (14.0-18.0); Mean Corpuscular Hemoglobin 27.9 pg (25.0-34.0); Mean Corpuscular Hgb Conc 30.7 g/dL (32.0-36.0); Mean Platelet Volume 10.3 fL (9.4-12.4); Platelet Count 213 K/uL (130-400); RDW Coefficient of Variation 15.4 % (11.5-14.5); RDW Standard Deviation 51.2 fL (36.4-46.3); Red Blood Count 3.44 M/uL (4.70-6.10); White Blood Count 6.64 K/ul (4.8-10.8)
[2024-04-10 08:16] LABS: BUN Creatinine Ratio 21.9 (10-20); Calcium 8.4 mg/dl (8.6-10.3); Creatinine Clr Calc Pharmacy 29.2 ml/min; Magnesium 2.1 mg/dl (1.7-2.4); Phosphorus 3.3 mg/dl (2.5-4.9); Potassium 4.3 mmol/L (3.5-5.1)
[2024-04-10] MEDS: ASPIRIN 81 MG ECTAB PO SCH (10:18)
[2024-04-10] MEDS: ADVANCED PROBIOTIC 625 MG CAPSULE PO SCH (10:18)
[2024-04-10] MEDS: PANTOprazole 40 MG TAB PO SCH (10:18)
[2024-04-10] MEDS: ROSUVASTATIN CALCIUM 20 MG TAB PO SCH (10:18)
[2024-04-10] MEDS: SERTRALINE HCL 50 MG TABLET PO SCH (10:19)
[2024-04-10 12:00] LABS: Estimated Average Glucose 169 mg/dl; Hemoglobin A1C 7.5 % (4.5-5.6)
--- NOTE | 2024-04-10 12:06 | Hospitalist Progress Note ---
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 Stable right renal parenchymal cyst of 27 x 26 mm seen. Stable enlarged prostate seen. Thickened urinary bladder suggestive of cystitis or severe outflow tract obstruction noted Continue with IV hydration Lytes within range this AM Continue with supportive care. Fall precautions. Encourage p.o. intake Repeat BMP in AM Possible viral URTI: Though respiratory BioFire negative, patient reports myalgia/sore throat, patient noted to have dry cough per daughter. Tessalon perle, Mucinex, DuoNeb as needed. Continue to provide supportive care Possible UTI: Patient complains of pain and burning while passing, CTAP as above. WBC elevated. Start Rocephin. Probiotic. Will get urinalysis and culture Hyperkalemia: Potassium of 5.4, slightly elevated, EKG with no hyperkalemic changes. Normalized at 0300 BMP recheck Mild dehydration: Baseline creatinine of 1.5, admitting creatinine of 1.85, does not qualify for acute kidney injury over CKD yet. Cr improved to 1.69 with IV fluids. Avoid nephrotoxins. Labs in AM. Other chronic medical conditions: Continue with/resume home meds as and when able. Presumptive CAD as per records on aspirin prophylaxis hypertension, stable hyperlipidemia, on statin Rx DM2 insulin requiring, reasonable control given chronic kidney dysfunction, hemoglobin A1c of 8.27 September 2023 . SSI. chronic anemia, hemoglobin at baseline hx dementia/essential tremors/peripheral neuropathy: Patient is confused most of the day per patient's daughter. DVT prophylaxis: Heparin subcu Full code Lives with his daughter, has dementia and is at cognitive baseline. Anticipate dc home with family tomorrow. Care coordinated with Dr. Aguilera I spent a total of 50 minutes coordinating, documenting, and providing care for this patient excluding time spent in the performance of separately billed services or time spent by another provider/QHP. Admission and Anticipated Discharge Date Admission Date: April 09, 2024 Supervising Physician Co-Signing Physician Notes Pt seen and examined by me, care coordinated w/ J. ANDERS Serra, pls refer to her note above for further detail. Pt seen in the room w/ PA, and with 2 pt's daughters. Pt lying in bed in NAD, does not answer questions much, and daughters help with assessment. Pt is blind. One of the daughters is a primary caregiver at home. Pt diagnosed with Norovirus and having diarrhea. Seems improved now. Denies abd. pain on palpation. Will cont. to closely monitor. Possibly will DC tmrw. MD Ale I spent a total of 15 minutes coordinating, documenting, and providing care for this patient excluding time spend in the performance of separately billed services or time spent by another provider / QHP. Subjective Seen and examined in ED and then again on the floor with daughters present. Patient has dementia, is at mentation baseline per daughter, whom he lives with. Had 3 episodes of diarrhea overnight in ED but has slowed down since. Feeling hungry and interested in eating. No N/V today. No CP/SOB. Remainder of hx difficult to elicit 2/2 cognitive status. Review of Systems Review of Systems: See HPI for limited ROS Physical Exam Physical Exam: Gen: WD/WN, NAD, elderly male, appears chronically ill, pleasantly confused, BUE tremors HEENT: Normocephalic, atraumatic. +blind both eyes Lung: Diminished at bases, no work of breathing Heart: Regular rate, regular rhythm Abdomen: Hyperactive BS, distended but soft, non tender Extremities: no edema Skin: Warm, no rash Results & Data Results & Data Vital Signs (Past 12 Hours) Vital Signs Pulse Resp BP Pulse Ox Pulse Ox O2 Del Method O2 Del Method 04/10/24 12:02 75 16 145/61 H 95 Room Air 04/10/24 11:08 98 Room Air 04/10/24 07:02 67 20 138/69 96 Room Air 04/10/24 05:00 68 18 134/67 96 Room Air 04/10/24 02:00 70 18 142/70 H 97 Room Air Laboratory Results Short CBC 04/10/24 Range/Units 07:38 WBC 6.64 (4.8-10.8) K/ul Hgb 9.6 L (14.0-18.0) g/dl Hct 31.3 L (42.0-52.0) % Plt Count 213 (130-400) K/uL BMP 04/10/24 07:38 Sodium 142 Potassium 4.3 Chloride 109 H Carbon Dioxide 27 BUN 37 H Creatinine 1.69 H Glucose 95 Calcium 8.4 L Diagnostic Findings Chest X-Ray 04/09/24 05:21 EXAM: XR chest 1V portable CLINICAL HISTORY: weakness TECHNIQUE: An X-ray image of the chest is obtained in AP projection. COMPARISON: 01/26/2024. FINDINGS: Rotated film, Pulmonary Parenchyma: Bibasal small subtle atelectatic bands seen. No evidence of consolidation/focal opacities/pulmonary nodule seen. No evidence of pleural effusion or pleural thickening. Heart and Mediastinum: Heart size and shape are normal. No mediastinal widening or masses. No hilar or mediastinal lymphadenopathy. Bony Thorax: Bony thorax appears intact without fractures or deformities. Soft Tissues: Soft tissues overlying the chest wall are unremarkable. IMPRESSION: 1. Bibasal small subtle atelectatic bands. 2. Otherwise no acute cardiopulmonary disease. Electronically signed by Ki Neville 04-09-2024 07:03 AM Abdomen/Pelvis CT 04/09/24 07:18 EXAM: CT abd pelvis wo con CLINICAL HISTORY: N/v/d ab pain. TECHNIQUE: Non-contrast CT of the abdomen and pelvis was performed, with the following protocol: axial images, and reconstructed coronal and sagittal images. One of the following dose reduction techniques was utilized for this exam: Automated exposure control, adjustment of the mA and/or kV according to patient size, and use of iterative reconstruction.DLP : 1275.30 mGy*cm, CTDI : 25.03 mGy. COMPARISON: Comparison is made with 01/26/2024 CT. FINDINGS: Abdomen: Liver: Normal in size, shape, and density. No focal lesions, cysts, or masses were identified. Left lobe of the liver shows air within the biliary ducts suggesting pneumobilia. Gallbladder and Biliary System: Postcholecystectomy clips seen in the gallbladder fossa, previous scan showed cholelithiasis and slightly distended gallbladder. Mildly dilated CBD measuring 11.5 mm luminal caliber showing air Pancreas: Pancreatic head, body, and tail are visualized and appear normal in size and density. No pancreatic masses or calcifications were noted. Spleen: Normal in size, shape, and density. No splenic lesions or masses were identified. Appendix: Appendix not separately appreciable from the bowel loops, same as prior. No evidence of abscess or collection in the right iliac fossa. Kidneys and Adrenal Glands: Both kidneys are normal in size, shape, and position. Cortical thickness is within normal limits. No renal calculi or hydronephrosis. A hypodense 27 x 26 mm area seen in the right kidney presents a midpole parenchymal cyst. Mild perinephric fat stranding seen bilaterally likely old changes. Adrenal glands are unremarkable. Abdominal Aorta and Vessels: The abdominal aorta and major branches are patent without evidence of an aneurysm. atherosclerotic abdominal aortic calcification seen, stable since prior Atherosclerotic calcification seen in the branches of both the internal iliac arteries and the proximal femoral vessels Pelvis: Urinary Bladder: Normal in contour and mild wall thickness of 7 mm. No intraluminal lesions. Prostate: Mildly enlarged prostate gland measures 38.8 x 38 x 40 millimeters noted showing faint parenchymal calcification,stable since prior Seminal Vesicles: Normal appearance without abnormal enlargement or mass. Calcifications seen in the corpus cavernosum/penile soft tissues, ureteral calcification may need exclusion if clinically indicated Peritoneal and Retroperitoneal Structures: No free fluid or abnormal fluid collections were identified within the abdomen or pelvis. No lymphadenopathy was noted. Bowel: Small hiatal hernia noted Small right inguinal hernia not containing any bowel loops The visualized bowel loops are normal in caliber and appearance. No evidence of bowel obstruction or wall thickening. A small 5 mm calcified focus seen in the right hemiabdomen likely old calcified lymph node, nonspecific. Bones and Soft Tissues: Reduced mineralization of the imaged bony structures seen suggests osteopenia, stable since prior. Degenerative changes seen in the imaged spine. Prominent inferior endplate Schmorl's nodes seen at L3 lumbar vertebral body. Basal lungs show few fibrotic reticular changes with minimal traction bronchiectatic stasis on the left side. Mild to minimal basal pleural thickening is also seen bilaterally IMPRESSION: 1. Pneumobilia seen in the left lobe of the liver and in the mildly dilated CBD, likely due to reflux/previous intervention, status post cholecystectomy, needs clinical correlation, New findings 2. Small hiatal hernia noted, stable since prior 3. Right renal parenchymal cyst of 27 x 26 mm seen, stable since prior 4. Enlarged prostate gland, stable since prior 5. Thick-walled urinary bladder, could be cystitis or may be sequelae of outflow hindrance / obstruction, shows slight interval resolution-improvement since prior. 6. Calcifications seen in the corpus cavernosum/penile soft tissues, ureteral calcification may need exclusion if clinically indicated, stable. 7. Focal edema seen in the skin-dermis in the midline lower back soft tissues, stable since prior. 8. Apart from the post-cholecystecomy changes, rest of the appearances remain interval stable since prior of 01/26/2024. Electronically signed by Ki Neville 04-09-2024 08:43 AM
[2024-04-10] MEDS ORDERED: NON-FORMULARY MEDICATION (Insulin Lispro [Humalog Kwikpen Insulin] 100 unit/mL insulin pen SQ SCH (15:02)
[2024-04-10] MEDS ORDERED: BENZONATATE 100 MG CAPSULE PO PRN (15:02)
[2024-04-10] MEDS ORDERED: NON-FORMULARY MEDICATION (Insulin Glargine [Lantus Solostar U-100 Insulin] 100 unit/mL (3 SQ SCH (21:00)
[2024-04-10] MEDS: LABETALOL HCL IV 5 MG/ML 20ML IV STA (22:20)
[2024-04-10] MEDS: TIMOLOL MALEATE 0.5% OP SOLN 5 ML BTL OP SCH (22:22)
[2024-04-10] MEDS: TERAZOSIN HCL 1 MG CAP PO SCH (22:22)
[2024-04-10] MEDS: BRIMONIDINE TARTRATE 0.2% 5ML OP SCH (22:24)
[2024-04-11 06:54] LABS: Hematocrit (blood only) 30.3 % (42.0-52.0); Hemoglobin 9.3 g/dl (14.0-18.0); Mean Corpuscular Hemoglobin 28.1 pg (25.0-34.0); Mean Corpuscular Hgb Conc 30.7 g/dL (32.0-36.0); Mean Corpuscular Volume 91.5 fL (80.0-100.0); Mean Platelet Volume 10.1 fL (9.4-12.4); Platelet Count 202 K/uL (130-400); RDW Standard Deviation 50.1 fL (36.4-46.3); Red Blood Count 3.31 M/uL (4.70-6.10)
[2024-04-11 07:22] LABS: BUN Creatinine Ratio 21.2 (10-20); Calcium 8.3 mg/dl (8.6-10.3); Creatinine Clr Calc Pharmacy 29.2 ml/min; Potassium 4.2 mmol/L (3.5-5.1)
[2024-04-11] MEDS: FINASTERIDE 5 MG TAB PO SCH (09:18)
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
[2024-04-12 06:40] LABS: Hemoglobin 9.8 g/dl (14.0-18.0); Mean Corpuscular Hemoglobin 28.2 pg (25.0-34.0); Mean Corpuscular Hgb Conc 30.6 g/dL (32.0-36.0); Mean Platelet Volume 10.4 fL (9.4-12.4); Platelet Count 213 K/uL (130-400); RDW Coefficient of Variation 14.9 % (11.5-14.5); RDW Standard Deviation 50.5 fL (36.4-46.3); Red Blood Count 3.48 M/uL (4.70-6.10)
[2024-04-12 06:58] LABS: BUN Creatinine Ratio 17.6 (10-20); Calcium 8.9 mg/dl (8.6-10.3); Creatinine Clr Calc Pharmacy 27.8 ml/min; Phosphorus 3.2 mg/dl (2.5-4.9); Potassium 4.7 mmol/L (3.5-5.1)
--- NOTE | 2024-04-12 07:47 | Discharge Summary ---
Discharge Summary Date of Service April 12, 2024 Principal Dx & Hospital Course #1 = Principal Diagnosis (1) Nausea vomiting and diarrhea: (2) Gastroenteritis due to norovirus: (3) Type 2 DM with CKD stage 3 and hypertension: (4) Dementia: Plan This is an 88-year-old male with PMH of CAD, HTN, HLD, T2DM insulin requiring, CKD [baseline creatinine of 1.5], chronic anemia [baseline hemoglobin of 11], dementia, essential tremors, peripheral neuropathy, GERD, macular degeneration, blind both eyes, glaucoma presented to the ED with nausea, vomiting, diarrhea for 1 day. PCR test in emergency department positive for norovirus. Family states they had it last week. Admitting CTAP with multiple findings, pneumobilia in the left lobe of the liver and in the mildly dilated CBD likely status postcholecystectomy findings. Stable right renal parenchymal cyst of 27 x 26 mm seen. Stable enlarged prostate seen. Thickened urinary bladder suggestive of cystitis or severe outflow tract obstruction noted. Supportive care with IV fluids and monitoring of electrolytes, which are in normal range now. Diarrhea has stopped and patient tolerating normal diet. Does require being fed as he is blind in both eyes with significant dementia. There was mention of urinary symptoms on admission but unable to obtain UA as patient is incontinent and refused straight cathing multiple times. Will discharge on completion of antibiotic course for possible UTI. Review of past urine cultures without any evidence of resistance. Patient appears well-hydrated and ready to go home. Care coordinated with his daughter who provides 24/ care. Notes For Next Care Provider Norovirus, significant dementia at baseline Medication Changes From Visit Cefuroxime twice a day until course complete for possible UTI. Admission HPI Per Admitting Provider 88-year-old male with PMH of CAD, HTN, HLD, T2DM insulin requiring, CKD [baseline creatinine of 1.5], chronic anemia [baseline hemoglobin of 11], dementia, essential tremors, peripheral neuropathy, GERD, macular degeneration, blind both eyes, glaucoma presented to the ED with nausea, vomiting, diarrhea for 1 day. Patient is confused most of the days per patient's daughter at bedside who helped with most of the history taking. Also history taking was augmented from chart review and discussion with the ER physician. Per patient daughter, patient was having nausea, vomiting, diarrhea for 1 day resulting in very poor appetite. Patient is wheelchair dependent at baseline. No fever. Patient has some dry cough, patient does report some sore throat and whole body pain at bedside exam. Patient also reports pain and burning while passing urine. Patient does not smoke/use alcohol/recreational drug per patient's daughter. Medications reviewed with patient's daughter at bedside. Full code Plan of care discussed with patient's daughter at bedside, she voiced understanding and was agreeable to plan of care. Admission Exam Per Admitting Provider GENERAL: pleasantly confused. NAD, on RA. Appears chronically illl/frail/weak. Has dementia. HEENT: No pallor, no icterus. blind both eyes. Oral mucosa dry. Generalized muscle pain on palpation over chest, belly, thigh. NECK: No JVD, no neck masses. HEART: S1 and S2 heard. Regular rate and rhythm. No murmur, no gallop. RESPIRATORY SYSTEM: Normal AP diameter. No accessory muscle use. No wheezing, bb crackles. ABDOMEN: Soft, bowel sounds present, nontender, no distention. CENTRAL NERVOUS SYSTEM: No facial droop. Speech is clear. Moves extremities. can't obey command EXTREMITIES: No edema, no erythema seen. Discharge Exam Gen: WD/WN, NAD, elderly male, appears chronically ill, pleasantly confused, BUE tremors HEENT: Normocephalic, atraumatic. +blind both eyes Lung: Diminished at bases, no work of breathing Heart: Regular rate, regular rhythm Abdomen: Normoactive BS, distended but soft, non tender Extremities: no edema Skin: Warm, no rash Updated Medication List Medication Instructions Recorded Confirmed Type aspirin 81 mg tablet,delayed 81 mg PO QAM 03/07/18 04/09/24 History release brimonidine 0.2 %-timolol 0.5 % 1 drp OPB UD 03/07/18 04/09/24 History eye drops (Combigan) donepezil 10 mg tablet 10 mg PO QPM 03/07/18 04/09/24 History finasteride 5 mg tablet 5 mg PO QAM 03/07/18 04/09/24 History furosemide 40 mg tablet (Lasix) 40 mg PO UD 03/07/18 04/09/24 History gabapentin 300 mg capsule 600 mg PO BID 03/07/18 04/09/24 History (Neurontin) metoprolol tartrate 25 mg tablet 12.5 mg PO BID 03/07/18 04/09/24 History nitroglycerin 0.4 mg sublingual 0.4 mg sublingual UD PRN Chest Pain 03/07/18 04/09/24 History tablet omeprazole 20 mg capsule,delayed 20 mg PO QAM 03/07/18 04/09/24 History release rosuvastatin 20 mg tablet 20 mg PO QAM 03/07/18 04/09/24 History terazosin 2 mg capsule 2 mg PO UD 03/07/18 04/09/24 History gabapentin 100 mg capsule 200 mg PO HS 03/15/19 04/09/24 History benzonatate 100 mg capsule 100 mg PO UD PRN Cough 01/26/24 04/09/24 History cholecalciferol (vitamin D3) 25 1,000 unit PO Q OTHER DAY 01/26/24 04/09/24 History mcg (1,000 unit) capsule (Vitamin D3) famotidine 20 mg tablet 20 mg PO BID 01/26/24 04/09/24 History guaifenesin 600 mg tablet, 600 mg PO UD PRN Congestion 01/26/24 04/09/24 History extended release 12 hr sertraline 50 mg tablet 25 mg PO QAM 01/26/24 04/09/24 History insulin glargine 100 unit/mL (3 15 unit (0.15 mL) subcut HS #0 mL 02/03/24 04/09/24 Rx mL) subcutaneous pen (Lantus Solostar U-100 Insulin) insulin lispro 100 unit/mL 8 - 10 unit subcut UD 04/09/24 04/09/24 History subcutaneous pen (Humalog KwikPen (U-100) Insulin) cefuroxime axetil 250 mg tablet 250 mg PO BID #8 tabs 04/12/24 Rx Hospital Stay Data Consultations 04/09/24 09:22 ED Decision to Admit Stat Diagnostic Imagining Performed 04/09/24 07:18 CT abd pelvis wo con Stat Pending Results Patient Have Any Pending Studies at Discharge: No Discharge Instructions Given to Patient (Per Discharging Provider) MEDICATION CHANGES: Continue Cefuroxime twice a day until course complete for possible UTI. SUMMARY OF TEST RESULTS: You were admitted to hospital for norovirus. Your symptoms have improved. Please continue a bland diet at home and drink plenty of fluids. RECOMMENDATIONS FOR FOLLOW-UP: Follow up with PCP Dr. Mosley on 04/16/2024 11:00 AM OTHER INSTRUCTIONS: Seek medical attention if you have: * temperature above 101 * chest pain or trouble breathing * abdominal pain, nausea, vomiting * diarrhea, dark stools or bloody stools * any unanswered questions or concerns Call 911 if symptoms are severe. Please take good care of yourself. Call if you have any questions or problems. You can reach a [facility] hospitalist on duty at [facility] 24 hours a day by calling [phone]. Total Time Total Time Spent Total Time Spent (In Minutes): 40 Supervising Physician Co-Signing Physician Notes Pt seen and examined by me, care coordinated w/ J. ANDERS Serra, pls refer to her note above for further detail. Pt diagnosed with Norovirus and having diarrhea. Now improved. Pt currently lying in bed in NAD, answers fairly appropriately. Plan to discharge home w/ family. MD Ale
[2024-04-12 07:53] VITALS: RESP 20; TEMP 97.3; O2SAT 94
[2024-04-12 08:54] VITALS: BP 145/61; PULSE 71
== END 2024-04-12 11:21 | disposition home health service (06) | DRG 392 ==
LOC: ED 05:13 → EDINP 10:48 → SUATTDRO 10:48 → 2N 15:29

== ENCOUNTER 2025-02-17 00:52 | Inpatient (IN) ==
[2025-02-17 01:39] LABS: Hematocrit (blood only) 29.3 % (42.0-52.0); Hemoglobin 9.1 g/dL (14.0-18.0); Immature Granulocytes # (auto) 0.03 K/uL (0.01-0.20); Immature Granulocytes % (auto) 0.3 %; Mean Corpuscular Hemoglobin 28.2 pg (25.0-34.0); Mean Corpuscular Volume 90.7 fL (80.0-100.0); Platelet Count 195 K/uL (130-400); RDW Standard Deviation 60.7 fL (36.4-46.3); Red Blood Count 3.23 M/uL (4.70-6.10); White Blood Count 9.12 K/ul (4.8-10.8)
[2025-02-17 01:57] LABS: Alanine Aminotransferase 14.0 U/L (7-52); Albumin Globulin Ratio 0.9 (0.9-2); Albumin Level 3.1 gm/dl (3.4-5.0); Alkaline Phosphatase 66.0 U/L (34-104); Anion Gap 8.0 (3-11); Bilirubin,Total 0.4 mg/dl (0.2-1.0); Blood Urea Nitrogen 44.0 mg/dl (6-23); Calcium 8.5 mg/dl (8.6-10.3); Carbon Dioxide 25.0 mmol/L (21-32); Chloride 105.0 mmol/L (98-107); Creatinine Clr Calc Pharmacy 23.7 ml/min; Globulin 3.5 gm/dl (2.5-4.0); Glucose 225.0 mg/dl (70-99(Fasting)); Magnesium 2.1 mg/dl (1.7-2.4); Potassium 4.3 mmol/L (3.5-5.1); Sodium 138.0 mmol/L (136-145); Total Protein 6.6 gm/dl (6.0-8.3)
[2025-02-17 02:13] LABS: Thyroid Stimulating Hormone 0.357 uIu/ml (0.300-4.500)
--- NOTE | 2025-02-17 03:02 | XRay Report ---
EXAM: XR chest 1V portable CLINICAL HISTORY: Weakness. TECHNIQUE: An X-ray image of the chest is obtained in AP projection. COMPARISON: 04/09/2024 X-ray. FINDINGS: Pulmonary Parenchyma: Mildly prominent bronchovascular markings likely denoting mild congestive and age related cchanges. Otherwise, the lungs are clear bilaterally. No evidence of consolidation, collapse, or focal opacities. No pulmonary nodules are identified. Blunted left costo-diaphragmatic recess. Clear right costo-diaphragmatic recess. Heart and Mediastinum: Heart size and shape are normal. No mediastinal widening or masses. No hilar or mediastinal lymphadenopathy. Bony Thorax: Bony thorax appears intact without fractures or deformities. Soft Tissues: Soft tissues overlying the chest wall are unremarkable. Chest monitor leads are seen. IMPRESSION: 1. Blunted left costo-diaphragmatic recess, may be a small effusion/thickening or atelectasis. New 2. No acute cardiopulmonary abnormalities are identified. 3. Bibasilar atelectatic changes are not seen at this time. 4. Clinical correlation and follow-up are recommended. Electronically signed by John Paul Rivas 02-17-2025 03:02 AM
[2025-02-17] MEDS: OPTIRAY 320 100ml IV ONE (03:04)
[2025-02-17] MEDS: SODIUM CHLORIDE 0.9% 1,000 ML IV ONE (03:32)
--- NOTE | 2025-02-17 03:53 | CT Scan Report ---
EXAM: CT abd pelvis IV con only CLINICAL HISTORY: Abd. pain - diffuse. TECHNIQUE: CT of the abdomen and pelvis was performed, with the following protocol: axial images, and reconstructed coronal and sagittal images. 93ml Optiray 320 Intravenous contrast was administered. One of the following dose reduction techniques was utilized for this exam: Automated exposure control, adjustment of the mA and/or kV according to patient size, and use of iterative reconstruction. COMPARISON: 04/09/2024 CT. FINDINGS: Sections of the lower thorax show minimal basal fibroatelectatic changes with posterior parietal pleural thickening in the bases. Small sliding hiatus hernia again noted. Abdomen: Liver: Normal in size, shape, and density. No focal lesions, cysts, or masses were identified. Redemonstration of left lobar pneumobilia and mildly dilated CBD, likely postsurgical changes. Gallbladder: Post cholecystectomy status. Pancreas: The pancreatic head, body, and tail are visualized and appear normal in size and density. Spleen: Normal in size, shape, and density. No splenic lesions or masses were identified. Kidneys and Adrenal Glands: Minimal bilateral perinephric fat stranding and fluid collections, stable. Non-specific Both kidneys are normal in size. No renal calculi or hydronephrosis. Stable 2.7 x 2.6 cm right upper pole renal cortical cyst. Adrenal glands are unremarkable. Pelvis: Urinary Bladder: Slightly thick-walled urinary bladder, despite suboptimal distention with subtle perivesical fat stranding, possible mild cystitis. Similar findings of demonstrated on prior CT study. The prostate is prominent in size, measuring 3.6 x 4 cm Calcifications of the seminiferous tubules were noted. Peritoneal and Retroperitoneal Structures: No free fluid or abnormal fluid collections were identified within the abdomen or pelvis. Small calcified structure in the right lower quadrant, likely a calcified node. The abdominal aorta and its branches show atherosclerotic changes with calcified plaques. Gastrointestinal tract: Mild fecal loading of the colon. The visualized small bowel loops are normal in caliber and appearance. The appendix is not well delineated. Bones and Soft Tissues: Moderate degenerative changes in the lumbar spine. Small umbilical hernia containing omental fat with minimal surrounding edema again noted. Linear soft tissue thickening/postsurgical changes in the supraumbilical region were again noted. Weakening and atrophy of the anterior abdominal wall. IMPRESSION: 1. Slightly thick-walled urinary bladder, despite suboptimal distention with subtle perivesical fat stranding, possible mild cystitis. Recommended clinical correlation with urine analysis. 2. Stable 2.7 x 2.6 cm right upper pole renal cortical cyst. 3. The rest of the findings, as described abov, aree grossly unchanged. Electronically signed by John Paul Rivas 02-17-2025 03:52 AM
--- NOTE | 2025-02-17 03:55 | CT Scan Report ---
EXAM: CT head/brain wo con CLINICAL HISTORY: Altered ms. TECHNIQUE: Axial non-contrast CT scan of the brain was performed from the skull base to the high parietal region. One of the following dose reduction techniques was utilized for this exam: Automated exposure control, adjustment of the mA and/or kV according to patient size, and use of iterative reconstruction. COMPARISON: 03/06/2018 CT. FINDINGS: Brain Parenchyma: There are ill-defined iso-to hypodense areas in the subcortical and periventricular white matter bilaterally, representing chronic microvascular ischemic changes. The rest of the visualized brain parenchyma shows a normal appearance. No intracerebral or extra axial hematoma. Atherosclerotic intracranial carotid calcifications. Ventricular System: Prominent ventricular system. Subarachnoid Spaces: The cortical sulci and basal cisterns are prominent, consistent with senile changes. Cerebellum and Brainstem: No masses, lesions, or areas of abnormal density. Orbits: Normal appearance of the globes, optic nerves, and extraocular muscles. No evidence of orbital masses or abnormal density. Visualised Paranasal sinuses: Clear paranasal sinuses. Mastoid Air Cells: Clear mastoid air cells. Skull and soft tissue: Normal skull morphology. IMPRESSION: 1. No acute intracranial abnormality detected at present. 2. Extensive chronic microvascular ischemic changes and senile cortical atrophy, mild interval progression since prior CT study dated 03/06/2018 Electronically signed by John Paul Rivas 02-17-2025 03:54 AM
[2025-02-17 03:57] LABS: Influenza A virus by PCR Negative (Neg); Influenza B virus by PCR Negative (Neg); SARS CoV2 RNA(COVID-19) Ceph NEGATIVE (Negative)
[2025-02-17 04:50] LABS: Appearance Urine Cloudy (Clear); Bacteria Urine Automated 1+ (None Seen); Glucose Urine UA Negative (Negative); RBC Urine Automated 0-2 /hpf (0-2)
[2025-02-17] MEDS: cefTRIAXone SODIUM 2,000 MG/50 ML BAG IV STA (05:32)
--- NOTE | 2025-02-17 06:41 | Emergency Department Note ---
Impression & Plan Altered mental status, Fever, Acute UTI Admit to the [facility] ED Provider Note NAME: JENNIFER GROVE AGE: 89 SEX: Male INFORMANT: Patient's daughter ED PROVIDER(S): Teagan Marrero DO CHIEF COMPLAINT: weakness PLAN: Disposition: admit to the [facility] MEDICAL DECISION MAKING: This is an 89-year-old male patient with history of type 2 diabetes, chronic kidney disease and dementia who presents to the emergency department with family for increasing weakness and confusion. Family noticed that he became more quiet around 3 PM this afternoon and then became less active and seemed more disoriented. He then was refusing to eat. There was question as to whether or not he was having difficulty swallowing. They did check a blood sugar and found it to be 234. On presentation to the emergency department he was tachycardic and febrile. A septic protocol was performed. Upper respiratory BioFire testing was negative. There was no leukocytosis. Lactate and procalcitonin were negative. Hemoglobin was 9.1 which is baseline for the patient. BUN was 44 which was elevated and creatinine was 1.92 which is also baseline for the patient. Glucose was elevated at 225. Troponin was slightly elevated at 23.5. On my evaluation, the patient would intermittently follow commands when his daughter would speak to him primarily in Estonian. They describe that his mental status is much different than baseline. CT scan of the brain was performed and was unremarkable. A caregiver from earlier in the day stated that the patient seemed to complain of abdominal pain. We did perform a bladder scan which had a small amount of urine noted within the bladder. Once he had received some IV fluids and had more urine in the bladder. He did produce enough for us to test which showed some evidence which was concerning for UTI. The patient was given a dose of IV Rocephin. The case was discussed with the [facility] and they will evaluate for further inpatient care. Care/management discussed with: Patient's daughter who was at the bedside, assistant casino shift manager and [facility] Triage Nursing notes: reviewed and agree with them. Vital Signs: reviewed and remarkable for fever and tachycardia Additional History obtained from: Family members at the bedside Chronic Medical/Social Conditions affecting care: Type 2 diabetes, chronic kidney disease and dementia Differential Diagnosis: Metabolic encephalopathy, hypoglycemia, acute CVA, intracranial hemorrhage, sepsis, SIRS, UTI Diagnostics, independently interpreted by me: ECG: Normal sinus rhythm at a rate of [address] segment elevation or signs of ischemia. There is no ectopy. Cardiac Monitoring: Normal sinus rhythm at a rate of 74 Imaging studies: portable chest x-ray: No acute pulmonary filtrates or consolidation suggest pneumonia HPI: 89 year old Male arrives for evaluation of altered mental status. Around 3 PM this afternoon, family and caretakers noted that the patient seemed to be more quiet and have a decreased appetite. He then became less active throughout the evening and then increasingly lethargic. PAST MEDICAL HISTORY: See Below, PAST SURGICAL HISTORY: See Below, SOCIAL HISTORY: patient lives with family with caretakers to help HOME MEDICATIONS: See list ALLERGIES: See list VITALS: See Below PHYSICAL EXAMINATION: HEENT: Head - normocephalic and atraumatic. Patient refuses to open his eyes for exam. 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 Mouth -dry buccal mucosa. Oropharynx is nonerythematous and there is no tonsillar exudate or edema noted. Neck: Supple; no JVD, nuchal rigidity, cervical lymphadenopathy, or auscultated bruits. Heart: Tachycardic rate and regular rhythm. There is a normal S1 and S2 with no murmurs, clicks, or gallops appreciated. Lungs: Clear to auscultation bilaterally with no wheezes, rales, or rhonchi. Abdomen: Soft, nontender, moderately distended, with hypoactive bowel sounds. There are no palpable pulsatile masses or hepatosplenomegaly. There is no guarding, rigidity, or rebound noted. Extremities: No evidence of cyanosis, clubbing, or edema. There are easily palpable peripheral pulses. Neuro: Patient is semiresponsive. He will withdraw to painful stimuli. He will interact slightly with his family. He will occasionally follow commands. He seems to be moving all 4 extremities. Emergency Department treatment: pharmacy technician program director, IV normal saline bolus, IV Rocephin. Emergency Department course: Patient was evaluated in room A-4. A septic protocol was performed. An order was placed for continuous cardiac monitoring. The patient was in a normal sinus rhythm at a rate of 74. Twelve-lead EKG was obtained as described above. BSG was obtained and was elevated at 234. Upper respiratory BioFire testing was obtained. This was negative. A bladder scan was performed and found 150 mL in the bladder. A male PureWick catheter was placed. Portable chest x-ray was performed. Patient went for CT scan of the brain and abdomen/pelvis. I reviewed results of labs and radiographic studies with the patient's family. Once we finally got a urine specimen, he was given a dose of IV Rocephin. I discussed the case with the [facility] Hospitalist and they will evaluate for further inpatient care. Past Med/Surg History Problem List (Updated 02/17/25 @ 18:52 by Teagan Marerro DO) Acute UTI (Acute) Fever (Acute) Altered mental status (Acute) Confusion Dementia Gastroenteritis due to norovirus (Acute) Acute dehydration (Acute) Nausea vomiting and diarrhea (Acute) Hx laparoscopic cholecystectomy (01/30/24) Laparoscopic Cholecystectomy(Not Applicable) - Adalberto Stokes DO Transaminitis (Acute) Choledocholithiasis (Acute) Coarse tremors (Chronic) Hypoxia (Acute) Sepsis (Acute) Type 2 DM with CKD stage 3 and hypertension Acute renal failure superimposed on stage 3 chronic kidney disease Pneumonia (Acute) Generalized weakness (Acute) Fall Pneumonia (Acute) Weakness (Acute) Medical History Diabetes Surgical History No pertinent past surgical history Family History Other Family history non-contributory Social History Smoking Status: Never smoker Hx Alcohol Use: No Hx Substance Use: No Preferred Language: Estonian Communication Ability: Impaired Communication Ability Comment: speaks icelandic, has dementia Communication Tools: Physical Gestures Mechanical Technician Required: Yes Beliefs That Will Affect Care: None marital status: Single Current Living Situation: Alone and Family Current Living Situation Comment: 24hr care current occupational status: retired Feels Safe at Home: Yes Assistive Devices: Wheelchair Allergies Allergies Allergy/AdvReac Type Severity Reaction Status Date / Time metformin Allergy Unknown UNK Verified 02/24/24 09:12 salicylates Allergy Unknown . Verified 02/24/24 09:12 Home Meds Home Medications Medication Instructions Recorded Confirmed albuterol sulfate 90 mcg/actuation 2 inh inhalation Q6H PRN Shortness 02/17/25 02/17/25 aerosol inhaler Of Breath Or Wheezing aspirin 81 mg tablet,delayed 81 mg PO DAILY 02/17/25 02/17/25 release brimonidine 0.2 %-timolol 0.5 % 1 drp OPB BID 02/17/25 02/17/25 eye drops (Combigan) cholecalciferol (vitamin D3) 25 25 unit PO Q2D 02/17/25 02/17/25 mcg (1,000 unit) capsule (Vitamin D3) donepezil 10 mg tablet 10 mg PO DAILY 02/17/25 02/17/25 famotidine 20 mg tablet 20 mg PO BID 02/17/25 02/17/25 ferrous sulfate 325 mg (65 mg 325 mg PO BID 02/17/25 02/17/25 iron) tablet (FeroSul) finasteride 5 mg tablet 5 mg PO DAILY 02/17/25 02/17/25 furosemide 40 mg tablet 40 mg PO UD 02/17/25 02/17/25 gabapentin 100 mg capsule 200 mg PO HS 02/17/25 02/17/25 gabapentin 300 mg capsule 600 mg PO BID 02/17/25 02/17/25 insulin aspart U-100 100 unit/mL 1 unit subcut UD 02/17/25 02/17/25 (3 mL) subcutaneous pen insulin glargine-yfgn 100 unit/mL 30 unit subcut HS 02/17/25 02/17/25 (3 mL) subcutaneous pen metoprolol tartrate 25 mg tablet 12.5 mg PO BID 02/17/25 02/17/25 omeprazole 20 mg capsule,delayed 20 mg PO DAILY 02/17/25 02/17/25 release rosuvastatin 20 mg tablet 20 mg PO DAILY 02/17/25 02/17/25 sertraline 50 mg tablet 25 mg PO DAILY 02/17/25 02/17/25 terazosin 2 mg capsule 2 mg PO HS 02/17/25 02/17/25 Results & Data (ED) Vital Signs Vital Signs - 24 hr 02/17/25 00:59 02/17/25 01:00 02/17/25 01:30 Temperature 38.7 C H Temperature Source Rectal Pulse Rate 77 74 74 Pulse Rate from SpO2 Sensor Respiratory Rate 18 20 Respiratory Effort / Characteristics Non-Labored Spontaneous Respiratory Depth Normal Respiratory Pattern Regular Blood Pressure 117/79 117/79 Blood Pressure Mean 91 91 Pulse Oximetry 94 93 Oxygen Delivery Method Room Air Sepsis Recent Fever Within 48 Hours Yes Sepsis New/Unexplained Change in Mental Status Yes Sepsis Action Taken by Nursing Physician Notified 02/17/25 02:03 02/17/25 02:18 02/17/25 02:30 Temperature Temperature Source Pulse Rate 72 67 68 Pulse Rate from SpO2 Sensor Respiratory Rate 18 18 16 Respiratory Effort / Characteristics Respiratory Depth Respiratory Pattern Blood Pressure 119/50 L 130/54 L 118/64 Blood Pressure Mean 67 79 84 Pulse Oximetry 96 95 96 Oxygen Delivery Method Sepsis Recent Fever Within 48 Hours Sepsis New/Unexplained Change in Mental Status Sepsis Action Taken by Nursing 02/17/25 02:30 02/17/25 02:30 02/17/25 02:30 Temperature Temperature Source Pulse Rate Pulse Rate from SpO2 Sensor Respiratory Rate Respiratory Effort / Characteristics Respiratory Depth Respiratory Pattern Blood Pressure 118/64 118/64 118/64 Blood Pressure Mean 84 84 84 Pulse Oximetry Oxygen Delivery Method Sepsis Recent Fever Within 48 Hours Sepsis New/Unexplained Change in Mental Status Sepsis Action Taken by Nursing 02/17/25 02:30 02/17/25 02:39 02/17/25 02:41 Temperature Temperature Source Pulse Rate 71 Pulse Rate from SpO2 Sensor 67 Respiratory Rate 18 Respiratory Effort / Characteristics Respiratory Depth Respiratory Pattern Blood Pressure 118/64 93/74 L Blood Pressure Mean 84 81 Pulse Oximetry 96 Oxygen Delivery Method Sepsis Recent Fever Within 48 Hours Sepsis New/Unexplained Change in Mental Status Sepsis Action Taken by Nursing 02/17/25 02:41 02/17/25 02:41 02/17/25 02:41 Temperature Temperature Source Pulse Rate Pulse Rate from SpO2 Sensor Respiratory Rate Respiratory Effort / Characteristics Respiratory Depth Respiratory Pattern Blood Pressure 93/74 L 93/74 L 93/74 L Blood Pressure Mean 81 81 81 Pulse Oximetry Oxygen Delivery Method Sepsis Recent Fever Within 48 Hours Sepsis New/Unexplained Change in Mental Status Sepsis Action Taken by Nursing 02/17/25 02:41 02/17/25 03:10 02/17/25 04:08 Temperature 37.7 C H Temperature Source Rectal Pulse Rate 69 Pulse Rate from SpO2 Sensor Respiratory Rate 16 Respiratory Effort / Characteristics Respiratory Depth Respiratory Pattern Blood Pressure 93/74 L 133/75 Blood Pressure Mean 81 120 Pulse Oximetry 97 Oxygen Delivery Method Sepsis Recent Fever Within 48 Hours Sepsis New/Unexplained Change in Mental Status Sepsis Action Taken by Nursing 02/17/25 04:48 02/17/25 05:00 Temperature Temperature Source Pulse Rate 74 73 Pulse Rate from SpO2 Sensor Respiratory Rate 14 Respiratory Effort / Characteristics Respiratory Depth Respiratory Pattern Blood Pressure 127/64 Blood Pressure Mean 85 Pulse Oximetry 95 Oxygen Delivery Method Sepsis Recent Fever Within 48 Hours Sepsis New/Unexplained Change in Mental Status Sepsis Action Taken by Nursing Laboratory Data 02/17/25 01:02/17/25: Lab Results 02/17/25 02/17/25 02/17/25 Range/Units 01:15 01:23 01:25 WBC 9.12 (4.8-10.8) K/ul RBC 3.23 L (4.70-6.10) M/uL Hgb 9.1 L (14.0-18.0) g/dL Hct 29.3 L (42.0-52.0) % MCV 90.7 (80.0-100.0) fL MCH 28.2 (25.0-34.0) pg MCHC 31.1 L (32.0-36.0) g/dL RDW Std Deviation 60.7 H (36.4-46.3) fL RDW Coeff of Damaris 18.4 H (11.5-14.5) % Plt Count 195 (130-400) K/uL MPV 10.7 (9.4-12.4) fL Immature Gran % (Auto) 0.3 % Neut % (Auto) 85.9 % Lymph % (Auto) 6.4 % [place] % (Auto) 7.1 % Eos % (Auto) 0.1 % Baso % (Auto) 0.2 % Neut # (Auto) 7.83 H (1.40-6.50) K/uL Lymph # (Auto) 0.58 L (1.20-3.40) K/uL [place] # (Auto) 0.65 H (0.11-0.59) K/uL Eos # (Auto) 0.01 (0.00-0.50) K/uL Baso # (Auto) 0.02 (0.00-0.20) K/uL Immature Gran # (Auto) 0.03 (0.01-0.20) K/uL Sodium 138 (136-145) mmol/L Potassium 4.3 (3.5-5.1) mmol/L Chloride 105 (98-107) mmol/L Carbon Dioxide 25 (21-32) mmol/L Anion Gap 8 (3-11) BUN 44 H (6-23) mg/dl Creatinine 1.92 H (0.6-1.4) mg/dl Est Cr Clr Drug Dosing 23.7 ml/min eGFR 32.89 BUN/Creatinine Ratio 22.9 H (10-20) Glucose 225 H (70-99(Fasting)) mg/dl POC Glucose 234 H (70-99) mg/dl Lactate 1.8 (0.4-2.0) mmol/L Calcium 8.5 L (8.6-10.3) mg/dl Magnesium 2.1 (1.7-2.4) mg/dl Total Bilirubin 0.4 (0.2-1.0) mg/dl AST 15 (13-39) U/L ALT 14 (7-52) U/L Alkaline Phosphatase 66 (34-104) U/L Troponin I High Sens 23.5 H (0-20) pg/ml Total Protein 6.6 (6.0-8.3) gm/dl Albumin 3.1 L (3.4-5.0) gm/dl Globulin 3.5 (2.5-4.0) gm/dl Albumin/Globulin Ratio 0.9 (0.9-2) Procalcitonin (0-0.5) ng/ml TSH 0.357 (0.300-4.500) uIu/ml Urine Color Urine Appearance (Clear) Urine pH (4.5-7.5) Ur Specific [place] (1.000-1.030) Urine Protein (Negative) Urine Glucose (UA) (Negative) Urine Ketones (Negative) Urine Blood (Negative) Urine Nitrite (Negative) Urine Bilirubin (Negative) Urine Urobilinogen (Negative) Ur Leukocyte Esterase (Negative) Urine WBC (Auto) (0-5) /hpf Urine RBC (Auto) (0-2) /hpf U Hyaline Cast (Auto) (0-2) /lpf U Epithel Cells (Auto) (0-2) /hpf Urine Bacteria (Auto) (None Seen) Urine Comment SARS-CoV-2 (PCR) (Negative) Influenza Type A (PCR) (Neg) Influenza Type B (PCR) (Neg) RSV (RT-PCR) (Neg) 02/17/25 02/17/25 02/17/25 Range/Units 01:39 02:40 04:34 WBC (4.8-10.8) K/ul RBC (4.70-6.10) M/uL Hgb (14.0-18.0) g/dL Hct (42.0-52.0) % MCV (80.0-100.0) fL MCH (25.0-34.0) pg MCHC (32.0-36.0) g/dL RDW Std Deviation (36.4-46.3) fL RDW Coeff of Damaris (11.5-14.5) % Plt Count (130-400) K/uL MPV (9.4-12.4) fL Immature Gran % (Auto) % Neut % (Auto) % Lymph % (Auto) % [place] % (Auto) % Eos % (Auto) % Baso % (Auto) % Neut # (Auto) (1.40-6.50) K/uL Lymph # (Auto) (1.20-3.40) K/uL [place] # (Auto) (0.11-0.59) K/uL Eos # (Auto) (0.00-0.50) K/uL Baso # (Auto) (0.00-0.20) K/uL Immature Gran # (Auto) (0.01-0.20) K/uL Sodium (136-145) mmol/L Potassium (3.5-5.1) mmol/L Chloride (98-107) mmol/L Carbon Dioxide (21-32) mmol/L Anion Gap (3-11) BUN (6-23) mg/dl Creatinine (0.6-1.4) mg/dl Est Cr Clr Drug Dosing ml/min eGFR BUN/Creatinine Ratio (10-20) Glucose (70-99(Fasting)) mg/dl POC Glucose (70-99) mg/dl Lactate (0.4-2.0) mmol/L Calcium (8.6-10.3) mg/dl Magnesium (1.7-2.4) mg/dl Total Bilirubin (0.2-1.0) mg/dl AST (13-39) U/L ALT (7-52) U/L Alkaline Phosphatase (34-104) U/L Troponin I High Sens (0-20) pg/ml Total Protein (6.0-8.3) gm/dl Albumin (3.4-5.0) gm/dl Globulin (2.5-4.0) gm/dl Albumin/Globulin Ratio (0.9-2) Procalcitonin 0.44 (0-0.5) ng/ml TSH (0.300-4.500) uIu/ml Urine Color Yellow Urine Appearance Cloudy A (Clear) Urine pH 5.0 (4.5-7.5) Ur Specific [place] 1.045 H (1.000-1.030) Urine Protein 2+ H (Negative) Urine Glucose (UA) Negative (Negative) Urine Ketones Negative (Negative) Urine Blood Trace H (Negative) Urine Nitrite Negative (Negative) Urine Bilirubin Negative (Negative) Urine Urobilinogen Negative (Negative) Ur Leukocyte Esterase Trace H (Negative) Urine WBC (Auto) 6-10 H (0-5) /hpf Urine RBC (Auto) 0-2 (0-2) /hpf U Hyaline Cast (Auto) 3-5 H (0-2) /lpf U Epithel Cells (Auto) 11-20 H (0-2) /hpf Urine Bacteria (Auto) 1+ H (None Seen) Urine Comment SARS-CoV-2 (PCR) NEGATIVE (Negative) Influenza Type A (PCR) Negative (Neg) Influenza Type B (PCR) Negative (Neg) RSV (RT-PCR) Negative (Neg) Administered Medications Aspirin (Aspirin 81 Mg Ectab) 81 mg PO DAILY NAHUN Stop: 03/19/25 08:59 Last Admin: 02/17/25 09:54 Dose: 81 mg Documented By: CRUZITO Brimonidine Tartrate (Brimonidine Tartrate 0.2% 5ml) 1 drops OP BID NAHUN Stop: 03/19/25 08:59 Last Admin: 02/17/25 09:50 Dose: 1 drops Documented By: CRUZITO Dextrose (Dextrose 50% 50 Ml Syringe) 25 - 50 ml IV UD PRN; Protocol PRN Reason: Hypoglycemia Protocol Stop: 03/19/25 07:35 Last Admin: 02/17/25 18:17 Dose: 25 ml Documented By: POORNIMA Donepezil HCl (Donepezil Hcl 10 Mg Tab) 10 mg PO DAILY NAHUN Stop: 03/19/25 08:59 Last Admin: 02/17/25 09:53 Dose: 10 mg Documented By: CRUZITO Famotidine (Famotidine 20 Mg Tab) 20 mg PO BID NAHUN Stop: 03/19/25 08:59 Last Admin: 02/17/25 09:53 Dose: 20 mg Documented By: CRUZITO Ferrous Sulfate (Ferrous Sulfate 325 Mg Tab) 325 mg PO BID NAHUN Stop: 03/19/25 08:59 Last Admin: 02/17/25 09:56 Dose: 325 mg Documented By: CRUZITO Finasteride (Finasteride 5 Mg Tab) 5 mg PO DAILY NAHUN Stop: 03/19/25 08:59 Last Admin: 02/17/25 10:00 Dose: 5 mg Documented By: CRUZITO Furosemide (Furosemide 40 Mg Tab) 40 mg PO MoWeFr@0900 NAHUN Stop: 03/19/25 08:59 Last Admin: 02/17/25 09:56 Dose: 40 mg Documented By: CRUZITO Gabapentin (Gabapentin 300 Mg Cap) 300 mg PO BID NAHUN Stop: 03/19/25 08:59 Last Admin: 02/17/25 09:54 Dose: 300 mg Documented By: CRUZITO Heparin Sodium (Porcine) (Heparin Sod 5,000 Unit/0.5 Ml Vial) 5,000 units SQ Q12 NAHUN Stop: 03/19/25 08:59 Last Admin: 02/17/25 10:00 Dose: Not Given Documented By: CRUZITO Sodium Chloride (Nss) 1,000 mls @ 80 mls/hr IV .[id number] [facility] Stop: 02/18/25 08:35 Last Admin: 02/17/25 09:50 Dose: 80 mls/hr Documented By: CRUZITO Insulin Aspart (Insulin Aspart Per Unit Charge) 0 units SC ACHS NAHUN Stop: 03/19/25 07:59 Last Admin: 02/17/25 18:19 Dose: Not Given Documented By: Admin: 02/17/25 12:18 Dose: Not Given Documented By: Admin: 02/17/25 09:49 Dose: 4 units Documented By: CRUZITO Co-signed By: ARMANDO Metoprolol Tartrate (Metoprolol Tartrate 25 Mg Tab) 12.5 mg PO BID NAHUN Stop: 03/19/25 08:59 Last Admin: 02/17/25 09:55 Dose: 12.5 mg Documented By: CRUZITO Pantoprazole Sodium (Pantoprazole 40 Mg Tab) 40 mg PO DAILY NAHUN Stop: 03/19/25 08:59 Last Admin: 02/17/25 10:00 Dose: 40 mg Documented By: CRUZITO Rosuvastatin Calcium (Rosuvastatin Calcium 20 Mg Tab) 20 mg PO DAILY NAHUN Stop: 03/19/25 08:59 Last Admin: 02/17/25 09:54 Dose: 20 mg Documented By: CRUZITO Sertraline HCl (Sertraline Hcl 50 Mg Tablet) 25 mg PO DAILY NAHUN Stop: 03/19/25 08:59 Last Admin: 02/17/25 09:57 Dose: 25 mg Documented By: CRUZITO Timolol Maleate (Timolol Maleate 0.5% Op Soln 5 Ml Btl) 1 drops OP BID NAHUN Stop: 03/19/25 08:59 Last Admin: 02/17/25 09:49 Dose: 1 drops Documented By: CRUZITO Vitamin D (Cholecalciferol 25 Mcg (1000 Units) Tab) 25 mcg PO Q2D@0900 NAHUN Stop: 03/19/25 08:59 Last Admin: 02/17/25 09:54 Dose: 25 mcg Documented By: CRUZITO Discontinued Medications Sodium Chloride (Nss) 1,000 mls @ 999 mls/hr IV .Q1H1M ONE Stop: 02/17/25 04:08 Last Infusion: 02/17/25 04:49 Dose: Infused Documented By: Admin: 02/17/25 03:32 Dose: 999 mls/hr Documented By: AARON Ceftriaxone Sodium (Rocephin) 2,000 mg in 50 mls @ 100 mls/hr IV NOW STA Stop: 02/17/25 05:46 Last Infusion: 02/17/25 06:20 Dose: Infused Documented By: Admin: 02/17/25 05:32 Dose: 100 mls/hr Documented By: MELITON Ioversol (Optiray 320 100ml) 100 ml IV ONCE ONE Stop: 02/17/25 03:05 Last Admin: 02/17/25 03:04 Dose: 93 ml Documented By: BRITTNEY Imaging Data Radiologist's Impression: Chest X-Ray 02/17/25 01:25 EXAM: XR chest 1V portable CLINICAL HISTORY: Weakness. TECHNIQUE: An X-ray image of the chest is obtained in AP projection. COMPARISON: 04/09/2024 X-ray. FINDINGS: Pulmonary Parenchyma: Mildly prominent bronchovascular markings likely denoting mild congestive and age related cchanges. Otherwise, the lungs are clear bilaterally. No evidence of consolidation, collapse, or focal opacities. No pulmonary nodules are identified. Blunted left costo-diaphragmatic recess. Clear right costo-diaphragmatic recess. Heart and Mediastinum: Heart size and shape are normal. No mediastinal widening or masses. No hilar or mediastinal lymphadenopathy. Bony Thorax: Bony thorax appears intact without fractures or deformities. Soft Tissues: Soft tissues overlying the chest wall are unremarkable. Chest monitor leads are seen. IMPRESSION: 1. Blunted left costo-diaphragmatic recess, may be a small effusion/thickening or atelectasis. New 2. No acute cardiopulmonary abnormalities are identified. 3. Bibasilar atelectatic changes are not seen at this time. 4. Clinical correlation and follow-up are recommended. Electronically signed by John Paul Rivas 02-17-2025 03:02 AM Abdomen/Pelvis CT 02/17/25 02:33 EXAM: CT abd pelvis IV con only CLINICAL HISTORY: Abd. pain - diffuse. TECHNIQUE: CT of the abdomen and pelvis was performed, with the following protocol: axial images, and reconstructed coronal and sagittal images. 93ml Optiray 320 Intravenous contrast was administered. One of the following dose reduction techniques was utilized for this exam: Automated exposure control, adjustment of the mA and/or kV according to patient size, and use of iterative reconstruction. COMPARISON: 04/09/2024 CT. FINDINGS: Sections of the lower thorax show minimal basal fibroatelectatic changes with posterior parietal pleural thickening in the bases. Small sliding hiatus hernia again noted. Abdomen: Liver: Normal in size, shape, and density. No focal lesions, cysts, or masses were identified. Redemonstration of left lobar pneumobilia and mildly dilated CBD, likely postsurgical changes. Gallbladder: Post cholecystectomy status. Pancreas: The pancreatic head, body, and tail are visualized and appear normal in size and density. Spleen: Normal in size, shape, and density. No splenic lesions or masses were identified. Kidneys and Adrenal Glands: Minimal bilateral perinephric fat stranding and fluid collections, stable. Non-specific Both kidneys are normal in size. No renal calculi or hydronephrosis. Stable 2.7 x 2.6 cm right upper pole renal cortical cyst. Adrenal glands are unremarkable. Pelvis: Urinary Bladder: Slightly thick-walled urinary bladder, despite suboptimal distention with subtle perivesical fat stranding, possible mild cystitis. Similar findings of demonstrated on prior CT study. The prostate is prominent in size, measuring 3.6 x 4 cm Calcifications of the seminiferous tubules were noted. Peritoneal and Retroperitoneal Structures: No free fluid or abnormal fluid collections were identified within the abdomen or pelvis. Small calcified structure in the right lower quadrant, likely a calcified node. The abdominal aorta and its branches show atherosclerotic changes with calcified plaques. Gastrointestinal tract: Mild fecal loading of the colon. The visualized small bowel loops are normal in caliber and appearance. The appendix is not well delineated. Bones and Soft Tissues: Moderate degenerative changes in the lumbar spine. Small umbilical hernia containing omental fat with minimal surrounding edema again noted. Linear soft tissue thickening/postsurgical changes in the supraumbilical region were again noted. Weakening and atrophy of the anterior abdominal wall. IMPRESSION: 1. Slightly thick-walled urinary bladder, despite suboptimal distention with subtle perivesical fat stranding, possible mild cystitis. Recommended clinical correlation with urine analysis. 2. Stable 2.7 x 2.6 cm right upper pole renal cortical cyst. 3. The rest of the findings, as described abov, aree grossly unchanged. Electronically signed by John Paul Rivas 02-17-2025 03:[address] 02/17/25 02:33 EXAM: CT head/brain wo con CLINICAL HISTORY: Altered ms. TECHNIQUE: Axial non-contrast CT scan of the brain was performed from the skull base to the high parietal region. One of the following dose reduction techniques was utilized for this exam: Automated exposure control, adjustment of the mA and/or kV according to patient size, and use of iterative reconstruction. COMPARISON: 03/06/2018 CT. FINDINGS: Brain Parenchyma: There are ill-defined iso-to hypodense areas in the subcortical and periventricular white matter bilaterally, representing chronic microvascular ischemic changes. The rest of the visualized brain parenchyma shows a normal appearance. No intracerebral or extra axial hematoma. Atherosclerotic intracranial carotid calcifications. Ventricular System: Prominent ventricular system. Subarachnoid Spaces: The cortical sulci and basal cisterns are prominent, consistent with senile changes. Cerebellum and Brainstem: No masses, lesions, or areas of abnormal density. Orbits: Normal appearance of the globes, optic nerves, and extraocular muscles. No evidence of orbital masses or abnormal density. Visualised Paranasal sinuses: Clear paranasal sinuses. Mastoid Air Cells: Clear mastoid air cells. Skull and soft tissue: Normal skull morphology. IMPRESSION: 1. No acute intracranial abnormality detected at present. 2. Extensive chronic microvascular ischemic changes and senile cortical atrophy, mild interval progression since prior CT study dated 03/06/2018 Electronically signed by John Paul Rivas 02-17-2025 03:54 AM Discharge Plan Visit Data Chief Complaint: Altered Mental Status Stated Complaint: ALTERED MENTAL STATUS, LETHARGIC ED Provider: Teagan Marrero Discharge Problem: Altered mental status, Fever, Acute UTI Patient Disposition: Admitted As Inpatient Condition: Serious Discharge Instructions Interventions: ED Discharge Assessment Last Done: 02/17/25 07:37
--- NOTE | 2025-02-17 06:51 | History & Physical Report ---
Date of Service February 17, 2025 Assessment & Plan (1) Confusion: Plan: 89-year-old male with past medical history significant for diabetic neuropathy, type 2 diabetes, diabetic retinopathy and blindness, CKD stage III, dyslipidemia,, stable angina, hypertension, GERD, essential tremor, vascular dementia, primary open-angle glaucoma both eyes severe stage, who lives at home with daughter and has24 x 7 caregivers was brought in for confusion. Daughter is in the room. Patient is wheelchair-bound. With assistance can transfer to wheelchair. As per daughter patient is alert and oriented to name and place. Can recognize family members. Since yesterday evening patient seems mostly drowsy. Seems weak. Not eating much. Not talking. Family worried about UTI and brought to the hospital. In the ER was spiking temperature. Currently very drowsy. When asked says he is doing okay. But not answering any other questions. As per daughter no nausea or vomiting. Complained of abdominal pain. No diarrhea or constipation. Micturating okay. Currently hemodynamics are okay. Confusion Possible UTI Empiric Rocephin Gentle fluids Will follow cultures Type 2 diabetes Continue home long-acting insulin Sliding scale Monitor JENNIFER on CKD stage III Baseline creatinine 1.4 Presented with creatinine 1.9 Getting fluids Follow repeat labs Ambulatory dysfunction Wheelchair-bound Blindness Needs assistance to transfer to wheelchair Dementia On donezepil Monitor for delirium GERD On famotidine and omeprazole BPH Finasteride and terazosin Monitor for retention Hypertension On metoprolol to tartrate, terazosin and Lasix Monitor Hyperlipidemia On statin Depression On Zoloft Anemia Hemoglobin 9.1 around baseline Continue iron supplements DVT prophylaxis Heparin subcu Disposition Med/telemetry Full code as per discussion with daughter History of Present Illness Chief Complaint: Confusion Primary Care Provider: Manjeet Mosley MD 89-year-old male with past medical history significant for diabetic neuropathy, type 2 diabetes, diabetic retinopathy and blindness, CKD stage III, dyslipidemia,, stable angina, hypertension, GERD, essential tremor, vascular dementia, primary open-angle glaucoma both eyes severe stage, who lives at home with daughter and has24 x 7 caregivers was brought in for confusion. Daughter is in the room. Patient is wheelchair-bound. With assistance can transfer to wheelchair. As per daughter patient is alert and oriented to name and place. Can recognize family members. Since yesterday evening patient seems mostly drowsy. Seems weak. Not eating much. Not talking. Family worried about UTI and brought to the hospital. In the ER was spiking temperature. Currently very drowsy. When asked says he is doing okay. But not answering any other questions. As per daughter no nausea or vomiting. Complained of abdominal pain. No diarrhea or constipation. Micturating okay. Currently hemodynamics are okay. Past medical history. As mentioned above Past surgical history. Cystoscopy. Tonsillectomy and adenoidectomy. Treatment of extensive retinopathy. Social history. No smoking. No alcohol use. No drug use. Family history. Brother has diabetes. Father had diabetes. Mother had heart disorder. Sister has diabetes. Allergies Allergy/AdvReac Type Severity Reaction Status Date / Time metformin Allergy Unknown UNK Verified 02/24/24 09:12 salicylates Allergy Unknown . Verified 02/24/24 09:12 Home Medications Medication Instructions Recorded Confirmed Type albuterol sulfate 90 mcg/actuation 2 inh inhalation Q6H PRN Shortness 02/17/25 02/17/25 History aerosol inhaler Of Breath Or Wheezing aspirin 81 mg tablet,delayed 81 mg PO DAILY 02/17/25 02/17/25 History release brimonidine 0.2 %-timolol 0.5 % 1 drp OPB BID 02/17/25 02/17/25 History eye drops (Combigan) cholecalciferol (vitamin D3) 25 25 unit PO Q2D 02/17/25 02/17/25 History mcg (1,000 unit) capsule (Vitamin D3) donepezil 10 mg tablet 10 mg PO DAILY 02/17/25 02/17/25 History famotidine 20 mg tablet 20 mg PO BID 02/17/25 02/17/25 History ferrous sulfate 325 mg (65 mg 325 mg PO BID 02/17/25 02/17/25 History iron) tablet (FeroSul) finasteride 5 mg tablet 5 mg PO DAILY 02/17/25 02/17/25 History furosemide 40 mg tablet 40 mg PO UD 02/17/25 02/17/25 History gabapentin 100 mg capsule 200 mg PO HS 02/17/25 02/17/25 History gabapentin 300 mg capsule 600 mg PO BID 02/17/25 02/17/25 History insulin aspart U-100 100 unit/mL 1 unit subcut UD 02/17/25 02/17/25 History (3 mL) subcutaneous pen insulin glargine-yfgn 100 unit/mL 30 unit subcut HS 02/17/25 02/17/25 History (3 mL) subcutaneous pen metoprolol tartrate 25 mg tablet 12.5 mg PO BID 02/17/25 02/17/25 History omeprazole 20 mg capsule,delayed 20 mg PO DAILY 02/17/25 02/17/25 History release rosuvastatin 20 mg tablet 20 mg PO DAILY 02/17/25 02/17/25 History sertraline 50 mg tablet 25 mg PO DAILY 02/17/25 02/17/25 History terazosin 2 mg capsule 2 mg PO HS 02/17/25 02/17/25 History Past Med/Surg History Problem List (Updated 02/17/25 @ 06:55 by Arley Nation MD) Confusion Dementia Gastroenteritis due to norovirus (Acute) Acute dehydration (Acute) Nausea vomiting and diarrhea (Acute) Hx laparoscopic cholecystectomy (01/30/24) Laparoscopic Cholecystectomy(Not Applicable) - Adalberto Stokes DO Transaminitis (Acute) Choledocholithiasis (Acute) Coarse tremors (Chronic) Hypoxia (Acute) Sepsis (Acute) Type 2 DM with CKD stage 3 and hypertension Acute renal failure superimposed on stage 3 chronic kidney disease Pneumonia (Acute) Generalized weakness (Acute) Fall Pneumonia (Acute) Weakness (Acute) Medical History Diabetes Surgical History No pertinent past surgical history Family History Other Family history non-contributory Social History Smoking Status: Never smoker Hx Alcohol Use: No Hx Substance Use: No Preferred Language: Ukrainian Communication Ability: Impaired Communication Ability Comment: speaks romansh, has dementia Communication Tools: IPad and Physical Gestures Broker Required: Yes Beliefs That Will Affect Care: None marital status: Single Current Living Situation: Family Current Living Situation Comment: 24hr care current occupational status: retired Feels Safe at Home: Yes Assistive Devices: Wheelchair Review of Systems Review of Systems: All systems reviewed & are unremarkable except as noted in HPI & below Physical Exam Physical Exam: General- Drowsy Head- atraumatic Eyes- blindness ENT- oropharynx clear Neck- supple, no JVD. Lungs- clear to auscultation no wheezing or crackles Heart- regular rhythm; no murmur, no gallop. Abdomen- normal bowel sounds, soft, nontender, no distension Extremities- no pretibial edema, no erythema seen Neuro- Drowsy ; no facial palsy; not talking, moves extremities. Skin- warm & dry Results & Data Results & Data Vital Signs (Past 12 Hours) Vital Signs Temp Pulse Resp BP Pulse Ox O2 Del Method 02/17/25 06:18 76 18 135/110 H 96 02/17/25 05:00 73 14 127/64 95 02/17/25 04:48 74 02/17/25 04:08 37.7 C H 02/17/25 03:10 69 16 133/75 97 02/17/25 02:41 93/74 L 02/17/25 02:41 93/74 L 02/17/25 02:41 93/74 L 02/17/25 02:41 93/74 L 02/17/25 02:41 93/74 L 02/17/25 02:39 71 18 96 02/17/25 02:30 118/64 02/17/25 02:30 118/64 02/17/25 02:30 118/64 02/17/25 02:30 118/64 02/17/25 02:30 68 16 118/64 96 02/17/25 02:18 67 18 130/54 L 95 02/17/25 02:03 72 18 119/50 L 96 02/17/25 01:30 74 20 117/79 93 02/17/25 01:00 38.7 C H 74 18 117/79 94 Room Air 02/17/25 00:59 77 Diagnostic Findings Laboratory Results WBC 9.12 K/ul (4.8-10.8) 02/17/25 01:25 RBC 3.23 M/uL (4.70-6.10) L 02/17/25 01:25 Hgb 9.1 g/dL (14.0-18.0) L 02/17/25 01:25 Hct 29.3 % (42.0-52.0) L 02/17/25 01:25 MCV 90.7 fL (80.0-100.0) 02/17/25 01:25 MCH 28.2 pg (25.0-34.0) 02/17/25 01:25 MCHC 31.1 g/dL (32.0-36.0) L 02/17/25 01:25 RDW Std Deviation 60.7 fL (36.4-46.3) H 02/17/25 01:25 RDW Coeff of [place] 18.4 % (11.5-14.5) H 02/17/25 01:25 Plt Count 195 K/uL (130-400) 02/17/25 01:25 MPV 10.7 fL (9.4-12.4) 02/17/25 01:25 Immature Gran % (Auto) 0.3 % 02/17/25 01:25 Neut % (Auto) 85.9 % 02/17/25 01:25 Lymph % (Auto) 6.4 % 02/17/25 01:25 [place] % (Auto) 7.1 % 02/17/25 01:25 Eos % (Auto) 0.1 % 02/17/25 01:25 Baso % (Auto) 0.2 % 02/17/25 01:25 Neut # (Auto) 7.83 K/uL (1.40-6.50) H 02/17/25 01:25 Lymph # (Auto) 0.58 K/uL (1.20-3.40) L 02/17/25 01:25 [place] # (Auto) 0.65 K/uL (0.11-0.59) H 02/17/25 01:25 Eos # (Auto) 0.01 K/uL (0.00-0.50) 02/17/25 01:25 Baso # (Auto) 0.02 K/uL (0.00-0.20) 02/17/25 01:25 Immature Gran # (Auto) 0.03 K/uL (0.01-0.20) 02/17/25 01:25 Sodium 138 mmol/L (136-145) 02/17/25 01:25 Potassium 4.3 mmol/L (3.5-5.1) 02/17/25 01:25 Chloride 105 mmol/L (98-107) 02/17/25 01:25 Carbon Dioxide 25 mmol/L (21-32) 02/17/25 01:25 Anion Gap 8 (3-11) 02/17/25 01:25 BUN 44 mg/dl (6-23) H 02/17/25 01:25 Creatinine 1.92 mg/dl (0.6-1.4) H 02/17/25 01:25 Est Cr Clr Drug Dosing 23.7 ml/min 02/17/25 01:25 eGFR 32.89 02/17/25 01:25 BUN/Creatinine Ratio 22.9 (10-20) H 02/17/25 01:25 Glucose 225 mg/dl (70-99(Fasting)) H 02/17/25 01:25 POC Glucose 234 mg/dl (70-99) H 02/17/25 01:23 Lactate 1.8 mmol/L (0.4-2.0) 02/17/25 01:15 Calcium 8.5 mg/dl (8.6-10.3) L 02/17/25 01:25 Magnesium 2.1 mg/dl (1.7-2.4) 02/17/25 01:25 Total Bilirubin 0.4 mg/dl (0.2-1.0) 02/17/25 01:25 AST 15 U/L (13-39) 02/17/25 01:25 ALT 14 U/L (7-52) 02/17/25 01:25 Alkaline Phosphatase 66 U/L (34-104) 02/17/25 01:25 Troponin I High Sens 23.5 pg/ml (0-20) H 02/17/25 01:25 Total Protein 6.6 gm/dl (6.0-8.3) 02/17/25 01:25 Albumin 3.1 gm/dl (3.4-5.0) L 02/17/25 01:25 Globulin 3.5 gm/dl (2.5-4.0) 02/17/25 01:25 Albumin/Globulin Ratio 0.9 (0.9-2) 02/17/25 01:25 Procalcitonin 0.44 ng/ml (0-0.5) 02/17/25 01:39 TSH 0.357 uIu/ml (0.300-4.500) 02/17/25 01:25 Urine Color Yellow 02/17/25 04:34 Urine Appearance Cloudy (Clear) A 02/17/25 04:34 Urine pH 5.0 (4.5-7.5) 02/17/25 04:34 Ur Specific [place] 1.045 (1.000-1.030) H 02/17/25 04:34 Urine Protein 2+ (Negative) H 02/17/25 04:34 Urine Glucose (UA) Negative (Negative) 02/17/25 04:34 Urine Ketones Negative (Negative) 02/17/25 04:34 Urine Blood Trace (Negative) H 02/17/25 04:34 Urine Nitrite Negative (Negative) 02/17/25 04:34 Urine Bilirubin Negative (Negative) 02/17/25 04:34 Urine Urobilinogen Negative (Negative) 02/17/25 04:34 Ur Leukocyte Esterase Trace (Negative) H 02/17/25 04:34 Urine WBC (Auto) 6-10 /hpf (0-5) H 02/17/25 04:34 Urine RBC (Auto) 0-2 /hpf (0-2) 02/17/25 04:34 U Hyaline Cast (Auto) 3-5 /lpf (0-2) H 02/17/25 04:34 U Epithel Cells (Auto) 11-20 /hpf (0-2) H 02/17/25 04:34 Urine Bacteria (Auto) 1+ (None Seen) H 02/17/25 04:34 Urine Comment 02/17/25 04:34 SARS-CoV-2 (PCR) NEGATIVE (Negative) 02/17/25 02:40 Influenza Type A (PCR) Negative (Neg) 02/17/25 02:40 Influenza Type B (PCR) Negative (Neg) 02/17/25 02:40 RSV (RT-PCR) Negative (Neg) 02/17/25 02:40 Impressions Chest X-Ray 02/17/25 01:25 EXAM: XR chest 1V portable CLINICAL HISTORY: Weakness. TECHNIQUE: An X-ray image of the chest is obtained in AP projection. COMPARISON: 04/09/2024 X-ray. FINDINGS: Pulmonary Parenchyma: Mildly prominent bronchovascular markings likely denoting mild congestive and age related cchanges. Otherwise, the lungs are clear bilaterally. No evidence of consolidation, collapse, or focal opacities. No pulmonary nodules are identified. Blunted left costo-diaphragmatic recess. Clear right costo-diaphragmatic recess. Heart and Mediastinum: Heart size and shape are normal. No mediastinal widening or masses. No hilar or mediastinal lymphadenopathy. Bony Thorax: Bony thorax appears intact without fractures or deformities. Soft Tissues: Soft tissues overlying the chest wall are unremarkable. Chest monitor leads are seen. IMPRESSION: 1. Blunted left costo-diaphragmatic recess, may be a small effusion/thickening or atelectasis. New 2. No acute cardiopulmonary abnormalities are identified. 3. Bibasilar atelectatic changes are not seen at this time. 4. Clinical correlation and follow-up are recommended. Electronically signed by John Paul Rivas 02-17-2025 03:02 AM Abdomen/Pelvis CT 02/17/25 02:33 EXAM: CT abd pelvis IV con only CLINICAL HISTORY: Abd. pain - diffuse. TECHNIQUE: CT of the abdomen and pelvis was performed, with the following protocol: axial images, and reconstructed coronal and sagittal images. 93ml Optiray 320 Intravenous contrast was administered. One of the following dose reduction techniques was utilized for this exam: Automated exposure control, adjustment of the mA and/or kV according to patient size, and use of iterative reconstruction. COMPARISON: 04/09/2024 CT. FINDINGS: Sections of the lower thorax show minimal basal fibroatelectatic changes with posterior parietal pleural thickening in the bases. Small sliding hiatus hernia again noted. Abdomen: Liver: Normal in size, shape, and density. No focal lesions, cysts, or masses were identified. Redemonstration of left lobar pneumobilia and mildly dilated CBD, likely postsurgical changes. Gallbladder: Post cholecystectomy status. Pancreas: The pancreatic head, body, and tail are visualized and appear normal in size and density. Spleen: Normal in size, shape, and density. No splenic lesions or masses were identified. Kidneys and Adrenal Glands: Minimal bilateral perinephric fat stranding and fluid collections, stable. Non-specific Both kidneys are normal in size. No renal calculi or hydronephrosis. Stable 2.7 x 2.6 cm right upper pole renal cortical cyst. Adrenal glands are unremarkable. Pelvis: Urinary Bladder: Slightly thick-walled urinary bladder, despite suboptimal distention with subtle perivesical fat stranding, possible mild cystitis. Similar findings of demonstrated on prior CT study. The prostate is prominent in size, measuring 3.6 x 4 cm Calcifications of the seminiferous tubules were noted. Peritoneal and Retroperitoneal Structures: No free fluid or abnormal fluid collections were identified within the abdomen or pelvis. Small calcified structure in the right lower quadrant, likely a calcified node. The abdominal aorta and its branches show atherosclerotic changes with calcified plaques. Gastrointestinal tract: Mild fecal loading of the colon. The visualized small bowel loops are normal in caliber and appearance. The appendix is not well delineated. Bones and Soft Tissues: Moderate degenerative changes in the lumbar spine. Small umbilical hernia containing omental fat with minimal surrounding edema again noted. Linear soft tissue thickening/postsurgical changes in the supraumbilical region were again noted. Weakening and atrophy of the anterior abdominal wall. IMPRESSION: 1. Slightly thick-walled urinary bladder, despite suboptimal distention with subtle perivesical fat stranding, possible mild cystitis. Recommended clinical correlation with urine analysis. 2. Stable 2.7 x 2.6 cm right upper pole renal cortical cyst. 3. The rest of the findings, as described abov, aree grossly unchanged. Electronically signed by John Paul Rivas 02-17-2025 03:[address] 02/17/25 02:33 EXAM: CT head/brain wo con CLINICAL HISTORY: Altered ms. TECHNIQUE: Axial non-contrast CT scan of the brain was performed from the skull base to the high parietal region. One of the following dose reduction techniques was utilized for this exam: Automated exposure control, adjustment of the mA and/or kV according to patient size, and use of iterative reconstruction. COMPARISON: 03/06/2018 CT. FINDINGS: Brain Parenchyma: There are ill-defined iso-to hypodense areas in the subcortical and periventricular white matter bilaterally, representing chronic microvascular ischemic changes. The rest of the visualized brain parenchyma shows a normal appearance. No intracerebral or extra axial hematoma. Atherosclerotic intracranial carotid calcifications. Ventricular System: Prominent ventricular system. Subarachnoid Spaces: The cortical sulci and basal cisterns are prominent, consistent with senile changes. Cerebellum and Brainstem: No masses, lesions, or areas of abnormal density. Orbits: Normal appearance of the globes, optic nerves, and extraocular muscles. No evidence of orbital masses or abnormal density. Visualised Paranasal sinuses: Clear paranasal sinuses. Mastoid Air Cells: Clear mastoid air cells. Skull and soft tissue: Normal skull morphology. IMPRESSION: 1. No acute intracranial abnormality detected at present. 2. Extensive chronic microvascular ischemic changes and senile cortical atrophy, mild interval progression since prior CT study dated 03/06/2018 Electronically signed by John Paul Rivas 02-17-2025 03:54 AM ECG Additional Comments: ECG. Normal sinus rhythm rate 76. No significant changes found. Code Status & VTE Plan VTE Prophylaxis Plan VTE Prophylaxis will be ordered: Yes
[2025-02-17] MEDS ORDERED: ALBUTEROL HFA 8 GM INHALER INH PRN (07:36)
[2025-02-17] MEDS ORDERED: ACETAMINOPHEN 325 MG TAB PO PRN (07:36)
[2025-02-17] MEDS ORDERED: NITROGLYCERIN SL 0.4 MG/TAB TAB SL PRN (07:36)
[2025-02-17] MEDS ORDERED: CARBOHYDRATES FOR HYPOGLYCEMIA PO PRN (07:36)
[2025-02-17] MEDS ORDERED: GLUCOSE 10 TAB/TUBE PO PRN (07:36)
[2025-02-17] MEDS ORDERED: GLUCOSE 40% GEL 15 GM TUBE PO PRN (07:36)
[2025-02-17] MEDS ORDERED: GLUCAGON FOR INJ 1 MG VIAL SQ PRN (07:36)
[2025-02-17] MEDS ORDERED: GABAPENTIN 300 MG CAP PO SCH (09:00)
[2025-02-17] MEDS: TIMOLOL MALEATE 0.5% OP SOLN 5 ML BTL OP SCH (09:49)
[2025-02-17] MEDS: INSULIN ASPART PER UNIT CHARGE SC SCH (09:49)
[2025-02-17] MEDS: SODIUM CHLORIDE 0.9% 1,000 ML IV SCH (09:50)
[2025-02-17] MEDS: BRIMONIDINE TARTRATE 0.2% 5ML OP SCH (09:50)
[2025-02-17] MEDS: DONEPEZIL HCL 10 MG TAB PO SCH (09:53)
[2025-02-17] MEDS: FAMOTIDINE 20 MG TAB PO SCH (09:53)
[2025-02-17] MEDS: CHOLECALCIFEROL 25 MCG (1000 UNITS) TAB PO SCH (09:54)
[2025-02-17] MEDS: ASPIRIN 81 MG ECTAB PO SCH (09:54)
[2025-02-17] MEDS: ROSUVASTATIN CALCIUM 20 MG TAB PO SCH (09:54)
[2025-02-17] MEDS: GABAPENTIN 300 MG CAP PO SCH (09:54)
[2025-02-17] MEDS: METOPROLOL TARTRATE 25 MG TAB PO SCH (09:55)
[2025-02-17] MEDS: FERROUS SULFATE 325 MG TAB PO SCH (09:56)
[2025-02-17] MEDS: FUROSEMIDE 40 MG TAB PO SCH (09:56)
[2025-02-17] MEDS: SERTRALINE HCL 50 MG TABLET PO SCH (09:57)
[2025-02-17] MEDS: HEPARIN SOD 5,000 UNIT/0.5 ML VIAL SQ SCH (10:00)
[2025-02-17] MEDS: FINASTERIDE 5 MG TAB PO SCH (10:00)
--- NOTE | 2025-02-17 10:57 | Electrocardiogram Report ---
Test Reason : Blood Pressure : */* mmHG Vent. Rate : 76 BPM Atrial Rate : 76 BPM P-R Int : 190 ms QRS Dur : 82 ms QT Int : 392 ms P-R-T Axes : 54 14 66 degrees QTcB Int : 441 ms Normal sinus rhythm Normal ECG When compared with ECG of 09-Apr-2024 06:16, No significant change was found Confirmed by Sincere Aguirre ([id number]) on 02/17/2025 10:57:13 AM Referred By: REFERRED SELF Confirmed By: Sincere Aguirre
--- NOTE | 2025-02-17 17:24 | Hospitalist Progress Note ---
Date of Service February 17, 2025 Assessment & Plan (1) Confusion: Plan: 89-year-old male with past medical history significant for diabetic neuropathy, type 2 diabetes, diabetic retinopathy and blindness, CKD stage III, dyslipidemia,, stable angina, hypertension, GERD, essential tremor, vascular dementia, primary open-angle glaucoma both eyes severe stage, who lives at home with daughter and has24 x 7 caregivers was brought in for confusion. Daughter is in the room. Patient is wheelchair-bound. With assistance can transfer to wheelchair. As per daughter patient is alert and oriented to name and place. Can recognize family members. Since yesterday evening patient seems mostly drowsy. Seems weak. Not eating much. Not talking. Family worried about UTI and brought to the hospital. In the ER was spiking temperature. Currently very drowsy. When asked says he is doing okay. But not answering any other questions. As per daughter no nausea or vomiting. Complained of abdominal pain. No diarrhea or constipation. Micturating okay. Currently hemodynamics are okay. Altered mental status Likely acute metabolic encephalopathy due to UTI Right renal cyst--incidental finding on CT --CT head:No acute intracranial abnormality detected at present. Extensive chronic microvascular ischemic changes and senile cortical atrophy, mild interval progression since prior CT study dated 03/06/2018 --CT ABD:Slightly thick-walled urinary bladder, despite suboptimal distention with subtle perivesical fat stranding, possible mild cystitis. Recommended clinical correlation with urine analysis. Stable 2.7 x 2.6 cm right upper pole renal cortical cyst. --Blood culture pending --Urine culture pending Empirically on IV Rocephin Minimize sedative medications as able Continue gentle IV fluids PT OT as able DM II Continue insulin per protocol Monitor blood glucose levels JENNIFER on CKD stage III Baseline creatinine ~1.5 Hold home Lasix Avoid nephrotoxic agents as able Monitor renal function Continue IV fluids Bladder scan as needed Ambulatory dysfunction Wheelchair-bound Blindness Needs assistance to transfer to wheelchair Dementia On donezepil Monitor for delirium GERD On famotidine and omeprazole BPH Finasteride and terazosin Monitor for retention Hypertension On metoprolol to tartrate, terazosin Monitor Hyperlipidemia On statin Depression On Zoloft Anemia Hemoglobin 9.1 around baseline Continue iron supplements DVT prophylaxis Heparin SQ CODE STATUS Full code Disposition PT OT as able Admission and Anticipated Discharge Date Admission Date: February 17, 2025 Subjective Patient is seen and examined at bedside Drowsy, lethargic during my encounter this morning Unable to obtain any history No distress on exam UA suggestive of possible UTI Review of Systems Review of Systems: Other Physical Exam Physical Exam: Physical Exam: Vitals signs as noted above General Appearance:Moderately built and nourished, no apparent distress Head: normocephalic, Atraumatic Eyes: normal inspection,+ blindness Neck: supple, Trachea midline Respiratory/Chest: Normal breath sounds, CTA, No accessory muscle use Cardiovascular: S1, S2, No murmur Abdomen/GI:Soft, mildly distended, non tender, Bowel sounds presen, no guarding or rigidity t Extremities/Musculoskeletal:normal inspection, no edema Neurologic/Psych: Drowsy, lethargic, unable to perform complete neurological exam,+ resting tremor Skin: normal color, warm Results & Data Results & Data Vital Signs (Past 12 Hours) Vital Signs Temp Pulse Pulse Resp BP BP Pulse Ox 02/17/25 15:25 02/17/25 15:25 37.8 C H 71 18 134/69 94 02/17/25 15:06 71 02/17/25 14:00 71 21 123/63 96 02/17/25 14:00 123/63 02/17/25 13:30 68 32 H 115/64 95 02/17/25 13:00 78 22 124/49 L 95 02/17/25 12:30 69 16 100/58 L 94 02/17/25 12:00 66 16 99/57 L 96 02/17/25 12:00 99/57 L 02/17/25 11:30 68 16 121/50 L 93 02/17/25 11:00 70 18 112/52 L 94 02/17/25 10:30 71 19 112/55 L 94 02/17/25 10:30 112/55 L 02/17/25 10:00 112/65 02/17/25 06:18 76 18 135/110 H 96 O2 Del Method 02/17/25 15:25 Room Air 02/17/25 15:25 Room Air 02/17/25 15:06 02/17/25 14:00 02/17/25 14:00 02/17/25 13:30 02/17/25 13:00 02/17/25 12:30 02/17/25 12:00 02/17/25 12:00 02/17/25 11:30 02/17/25 11:00 02/17/25 10:30 02/17/25 10:30 02/17/25 10:00 02/17/25 06:18 Laboratory Results Short CBC 02/17/25 Range/Units 01:25 WBC 9.12 (4.8-10.8) K/ul Hgb 9.1 L (14.0-18.0) g/dL Hct 29.3 L (42.0-52.0) % Plt Count 195 (130-400) K/uL BMP 02/17/25 01:25 Sodium 138 Potassium 4.3 Chloride 105 Carbon Dioxide 25 BUN 44 H Creatinine 1.92 H Glucose 225 H Calcium 8.5 L Liver Function 02/17/25 Range/Units 01:25 Total Bilirubin 0.4 (0.2-1.0) mg/dl AST 15 (13-39) U/L ALT 14 (7-52) U/L Alkaline Phosphatase 66 (34-104) U/L Albumin 3.1 L (3.4-5.0) gm/dl Urine 02/17/25 Range/Units 04:34 Urine Color Yellow Urine Appearance Cloudy A (Clear) Urine pH 5.0 (4.5-7.5) Ur Specific [place] 1.045 H (1.000-1.030) Urine Protein 2+ H (Negative) Urine Glucose (UA) Negative (Negative)
[2025-02-17] MEDS: DEXTROSE 50% 50 ML SYRINGE IV PRN (18:17)
[2025-02-17] MEDS: GABAPENTIN 100 MG CAP PO SCH (20:56)
[2025-02-17] MEDS: TERAZOSIN HCL 1 MG CAP PO SCH (20:57)
[2025-02-17] MEDS ORDERED: LANTUS PER UNIT CHARGE SC SCH (21:00)
[2025-02-18] MEDS: cefTRIAXone SODIUM 2,000 MG/50 ML BAG IV SCH (05:36)
[2025-02-18 05:54] LABS: Hematocrit (blood only) 31.1 % (42.0-52.0); Hemoglobin 9.7 g/dL (14.0-18.0); Immature Granulocytes # (auto) 0.03 K/uL (0.01-0.20); Immature Granulocytes % (auto) 0.5 %; Mean Corpuscular Hemoglobin 28.1 pg (25.0-34.0); Mean Corpuscular Volume 90.1 fL (80.0-100.0); Platelet Count 174 K/uL (130-400); RDW Standard Deviation 61.4 fL (36.4-46.3); Red Blood Count 3.45 M/uL (4.70-6.10); White Blood Count 5.55 K/ul (4.8-10.8)
[2025-02-18 06:12] LABS: Anion Gap 7.0 (3-11); Blood Urea Nitrogen 34.0 mg/dl (6-23); Calcium 8.1 mg/dl (8.6-10.3); Carbon Dioxide 25.0 mmol/L (21-32); Chloride 108.0 mmol/L (98-107); Creatinine Clr Calc Pharmacy 29.2 ml/min; Glucose 116.0 mg/dl (70-99(Fasting)); Magnesium 1.9 mg/dl (1.7-2.4); Potassium 4.0 mmol/L (3.5-5.1); Sodium 140.0 mmol/L (136-145)
[2025-02-18 07:53] LABS: Hemoglobin A1C 7.4 % (4.5-5.6)
--- NOTE | 2025-02-18 15:41 | Hospitalist Progress Note ---
Date of Service February 18, 2025 Assessment & Plan (1) Confusion: Plan: 89-year-old male with past medical history significant for diabetic neuropathy, type 2 diabetes, diabetic retinopathy and blindness, CKD stage III, dyslipidemia,, stable angina, hypertension, GERD, essential tremor, vascular dementia, primary open-angle glaucoma both eyes severe stage, who lives at home with daughter and has24 x 7 caregivers was brought in for confusion. Daughter is in the room. Patient is wheelchair-bound. With assistance can transfer to wheelchair. As per daughter patient is alert and oriented to name and place. Can recognize family members. Since yesterday evening patient seems mostly drowsy. Seems weak. Not eating much. Not talking. Family worried about UTI and brought to the hospital. In the ER was spiking temperature. Currently very drowsy. When asked says he is doing okay. But not answering any other questions. As per daughter no nausea or vomiting. Complained of abdominal pain. No diarrhea or constipation. Micturating okay. Currently hemodynamics are okay. Altered mental status Likely acute metabolic encephalopathy due to UTI Right renal cyst--incidental finding on CT --CT head:No acute intracranial abnormality detected at present. Extensive chronic microvascular ischemic changes and senile cortical atrophy, mild interval progression since prior CT study dated 03/06/2018 --CT ABD:Slightly thick-walled urinary bladder, despite suboptimal distention with subtle perivesical fat stranding, possible mild cystitis. Recommended clinical correlation with urine analysis. Stable 2.7 x 2.6 cm right upper pole renal cortical cyst. --Urine culture unreliable as sample obtained later after IV antibiotic administration --Blood culture negative to date --Urine culture pending Empirically on IV Rocephin Minimize sedative medications as able Received IV fluids PT OT prior to discharge Mental status much improved Follow-up cultures DM II HbA1c 7.4 Was hypoglycemic on 02/17/2025 due to poor oral intake Continue insulin per protocol Monitor blood glucose levels Lantus dose decreased to 5 mg twice daily Adjust insulin as needed JENNIFER on CKD stage III Baseline creatinine ~1.5 Hold home Lasix Avoid nephrotoxic agents as able Monitor renal function Received IV fluids Bladder scan as needed Creatinine back to baseline Ambulatory dysfunction Wheelchair-bound Blindness Needs assistance to transfer to wheelchair Dementia On donepezil Monitor for delirium GERD On famotidine and omeprazole BPH Finasteride and terazosin Monitor for retention Hypertension On metoprolol to tartrate, terazosin Monitor Hyperlipidemia On statin Depression On Zoloft Anemia Hemoglobin 9.1 around baseline Continue iron supplements DVT prophylaxis Heparin SQ CODE STATUS Full code Disposition PT OT prior to discharge Admission and Anticipated Discharge Date Admission Date: February 17, 2025 Subjective Patient is seen and examined at bedside Alert, awake, oriented today Discussed with patient's family at bedside Admits to have dysuria Offers no other complaints Denies any chest pain, dyspnea, abdominal pain, dizziness Review of Systems Review of Systems: All systems reviewed & are unremarkable except as noted in Subjective Physical Exam Physical Exam: Physical Exam: Vitals signs as noted above General Appearance:Moderately built and nourished, no apparent distress Head: normocephalic, Atraumatic Eyes: normal inspection,+ blindness Neck: supple, Trachea midline Respiratory/Chest: Normal breath sounds, CTA, No accessory muscle use Cardiovascular: S1, S2, No murmur Abdomen/GI:Soft, mildly distended, non tender, Bowel sounds present, no guarding or rigidity Extremities/Musculoskeletal:normal inspection, no edema Neurologic/Psych: Alert, awake, oriented, grossly moves all extremities, + resting tremor--chronic Skin: normal color, warm Results & Data Results & Data Vital Signs (Past 12 Hours) Vital Signs Temp Pulse Pulse Resp BP Pulse Ox O2 Del Method 02/18/25 13:59 72 02/18/25 11:39 37 C 75 18 113/57 L 94 Room Air 02/18/25 08:22 Room Air 02/18/25 08:11 66 02/18/25 07:49 37 C 131 H 18 132/69 91 Room Air 02/18/25 06:57 68 Laboratory Results Short CBC 02/18/25 Range/Units 05:10 WBC 5.55 (4.8-10.8) K/ul Hgb 9.7 L (14.0-18.0) g/dL Hct 31.1 L (42.0-52.0) % Plt Count 174 (130-400) K/uL BMP 02/18/25 05:10 Sodium 140 Potassium 4.0 Chloride 108 H Carbon Dioxide 25 BUN 34 H Creatinine 1.54 H D Glucose 116 H Calcium 8.1 L
[2025-02-18] MEDS: LANTUS PER UNIT CHARGE SQ SCH (20:19)
[2025-02-19 06:22] LABS: Anion Gap 8.0 (3-11); Blood Urea Nitrogen 38.0 mg/dl (6-23); Calcium 8.3 mg/dl (8.6-10.3); Carbon Dioxide 25.0 mmol/L (21-32); Chloride 107.0 mmol/L (98-107); Creatinine Clr Calc Pharmacy 25.9 ml/min; Glucose 181.0 mg/dl (70-99(Fasting)); Potassium 3.8 mmol/L (3.5-5.1); Sodium 140.0 mmol/L (136-145)
[2025-02-19] MEDS: LANTUS PER UNIT CHARGE SQ ONE (13:02)
[2025-02-19] MEDS ORDERED: MELATONIN 3 MG TAB PO PRN (14:02)
[2025-02-19] MEDS: GABAPENTIN 100 MG CAP PO SCH (15:07)
--- NOTE | 2025-02-19 15:33 | Hospitalist Progress Note ---
Date of Service February 19, 2025 Assessment & Plan (1) Confusion: Plan: 89-year-old male with past medical history significant for diabetic neuropathy, type 2 diabetes, diabetic retinopathy and blindness, CKD stage III, dyslipidemia,, stable angina, hypertension, GERD, essential tremor, vascular dementia, primary open-angle glaucoma both eyes severe stage, who lives at home with daughter and has24 x 7 caregivers was brought in for confusion. Daughter is in the room. Patient is wheelchair-bound. With assistance can transfer to wheelchair. As per daughter patient is alert and oriented to name and place. Can recognize family members. Since yesterday evening patient seems mostly drowsy. Seems weak. Not eating much. Not talking. Family worried about UTI and brought to the hospital. In the ER was spiking temperature. Currently very drowsy. When asked says he is doing okay. But not answering any other questions. As per daughter no nausea or vomiting. Complained of abdominal pain. No diarrhea or constipation. Micturating okay. Currently hemodynamics are okay. Altered mental status Likely acute metabolic encephalopathy due to UTI Right renal cyst--incidental finding on CT Delirium likely contributing as well --CT head:No acute intracranial abnormality detected at present. Extensive chronic microvascular ischemic changes and senile cortical atrophy, mild interval progression since prior CT study dated 03/06/2018 --CT ABD:Slightly thick-walled urinary bladder, despite suboptimal distention with subtle perivesical fat stranding, possible mild cystitis. Recommended clinical correlation with urine analysis. Stable 2.7 x 2.6 cm right upper pole renal cortical cyst. --Urine culture unreliable as sample obtained later after IV antibiotic administration --Blood culture negative to date --Urine culture pending Empirically on IV Rocephin Minimize sedative medications as able Received IV fluids PT OT prior to discharge Will obtain MRI brain to r/o CVA Hold donepezil Decrease gabapentin to 100 mg 3 times a day DM II HbA1c 7.4 Was hypoglycemic on 02/17/2025 due to poor oral intake Continue insulin per protocol Monitor blood glucose levels Adjust insulin as needed JENNIFER on CKD stage III Baseline creatinine ~1.5 Hold home Lasix Avoid nephrotoxic agents as able Monitor renal function Received IV fluids Bladder scan as needed Creatinine 1.7 today Ambulatory dysfunction Wheelchair-bound Blindness Needs assistance to transfer to wheelchair Dementia On donepezil--held as likely contributing to confusion Monitor for delirium GERD On famotidine and omeprazole BPH Finasteride and terazosin Monitor for retention Hypertension On metoprolol to tartrate, terazosin Monitor Hyperlipidemia On statin Depression On Zoloft Anemia Hemoglobin 9.1 around baseline Continue iron supplements DVT prophylaxis Heparin SQ CODE STATUS Full code Disposition PT OT prior to discharge Admission and Anticipated Discharge Date Admission Date: February 17, 2025 Subjective Patient is seen and examined at bedside Delirious during my encounter today No distress on exam Oral intake improved No family at bedside Very poor historian Denies any chest pain, dyspnea, abdominal pain Review of Systems Review of Systems: Other Physical Exam Physical Exam: Physical Exam: Vitals signs as noted above General Appearance:Moderately built and nourished, no apparent distress Head: normocephalic, Atraumatic Eyes: normal inspection,+ blindness Neck: supple, Trachea midline Respiratory/Chest: Normal breath sounds, CTA, No accessory muscle use Cardiovascular: S1, S2, No murmur Abdomen/GI:Soft, mildly distended, non tender, Bowel sounds present, no guarding or rigidity Extremities/Musculoskeletal:normal inspection, no edema Neurologic/Psych: Alert, awake, grossly moves all extremities, + resting tremor--chronic Skin: normal color, warm Results & Data Results & Data Vital Signs (Past 12 Hours) Vital Signs Temp Pulse Pulse Resp BP Pulse Ox O2 Del Method 02/19/25 13:01 74 02/19/25 11:30 36.4 C L 71 18 163/75 H 96 Room Air 02/19/25 07:34 36.6 C 60 17 157/73 H 97 Room Air 02/19/25 05:40 67 Laboratory Results [facility] 02/19/25 05:37 Sodium 140 Potassium 3.8 Chloride 107 Carbon Dioxide 25 BUN 38 H Creatinine 1.74 H Glucose 181 H Calcium 8.3 L
[2025-02-19] MEDS: LACTATED RINGER'S 1,000 ML IV ONE (16:22)
--- NOTE | 2025-02-19 16:26 | Communication Note ---
Date of Service: February 19, 2025 Unable to obtain MRI due to metallic densities found in [address] head tomorrow if remains altered.
[2025-02-19] MEDS: LANTUS PER UNIT CHARGE SQ SCH (20:37)
[2025-02-20 06:33] LABS: Hematocrit (blood only) 27.3 % (42.0-52.0); Hemoglobin 8.5 g/dL (14.0-18.0); Mean Corpuscular Hemoglobin 27.9 pg (25.0-34.0); Mean Corpuscular Volume 89.5 fL (80.0-100.0); Platelet Count 185 K/uL (130-400); RDW Standard Deviation 58.7 fL (36.4-46.3); Red Blood Count 3.05 M/uL (4.70-6.10); White Blood Count 5.13 K/ul (4.8-10.8)
[2025-02-20 06:52] LABS: Anion Gap 5.0 (3-11); Blood Urea Nitrogen 37.0 mg/dl (6-23); Calcium 8.4 mg/dl (8.6-10.3); Carbon Dioxide 27.0 mmol/L (21-32); Chloride 109.0 mmol/L (98-107); Creatinine Clr Calc Pharmacy 28.3 ml/min; Glucose 159.0 mg/dl (70-99(Fasting)); Potassium 3.8 mmol/L (3.5-5.1); Sodium 141.0 mmol/L (136-145)
[2025-02-20 08:12] VITALS: RESP 20
--- NOTE | 2025-02-20 15:17 | Hospitalist Progress Note ---
Date of Service February 20, 2025 Assessment & Plan (1) Confusion: Plan: 89-year-old male with past medical history significant for diabetic neuropathy, type 2 diabetes, diabetic retinopathy and blindness, CKD stage III, dyslipidemia,, stable angina, hypertension, GERD, essential tremor, vascular dementia, primary open-angle glaucoma both eyes severe stage, who lives at home with daughter and has24 x 7 caregivers was brought in for confusion. Daughter is in the room. Patient is wheelchair-bound. With assistance can transfer to wheelchair. As per daughter patient is alert and oriented to name and place. Can recognize family members. Since yesterday evening patient seems mostly drowsy. Seems weak. Not eating much. Not talking. Family worried about UTI and brought to the hospital. In the ER was spiking temperature. Currently very drowsy. When asked says he is doing okay. But not answering any other questions. As per daughter no nausea or vomiting. Complained of abdominal pain. No diarrhea or constipation. Micturating okay. Currently hemodynamics are okay. Altered mental status Likely acute metabolic encephalopathy due to UTI Cystitis--POA Right renal cyst--incidental finding on CT Delirium likely contributing as well --CT head:No acute intracranial abnormality detected at present. Extensive chronic microvascular ischemic changes and senile cortical atrophy, mild interval progression since prior CT study dated 03/06/2018 --CT ABD:Slightly thick-walled urinary bladder, despite suboptimal distention with subtle perivesical fat stranding, possible mild cystitis. Recommended clinical correlation with urine analysis. Stable 2.7 x 2.6 cm right upper pole renal cortical cyst. --Urine culture unreliable as sample obtained later after IV antibiotic administration --Blood culture negative to date --Urine culture negative to date Empirically on IV Rocephin Minimize sedative medications as able Received IV fluids PT OT prior to discharge Will obtain MRI brain to r/o CVA Hold donepezil Decrease gabapentin to 100 mg 3 times a day Mental status seem to be back to baseline per family Plan to transition to oral antibiotics and discharge likely tomorrow DM II HbA1c 7.4 Was hypoglycemic on 02/17/2025 due to poor oral intake Continue insulin per protocol Monitor blood glucose levels Adjust insulin as needed Has been refusing blood glucose checks JENNIFER on CKD stage III Baseline creatinine ~1.5 Hold home Lasix Avoid nephrotoxic agents as able Monitor renal function Received IV fluids Bladder scan as needed Creatinine 1.5 today Ambulatory dysfunction Wheelchair-bound Blindness Needs assistance to transfer to wheelchair Dementia On donepezil--held as likely contributing to confusion Monitor for delirium GERD On famotidine and omeprazole BPH Finasteride and terazosin Monitor for retention Hypertension On metoprolol to tartrate, terazosin Monitor Hyperlipidemia On statin Depression On Zoloft Anemia Hemoglobin 9.1 around baseline Continue iron supplements DVT prophylaxis Heparin SQ CODE STATUS Full code Disposition Plan to discharge home as able Admission and Anticipated Discharge Date Admission Date: February 17, 2025 Subjective Patient is seen and examined at bedside Discussed with patient's family at bedside Cultures remain negative States having minimal cough but otherwise no complaints Family believes mental status is back to baseline Denies any chest pain, dyspnea, abdominal pain, nausea, vomiting Oral intake improved Review of Systems Review of Systems: All systems reviewed & are unremarkable except as noted in Subjective Physical Exam Physical Exam: Physical Exam: Vitals signs as noted above General Appearance:Moderately built and nourished, no apparent distress Head: normocephalic, Atraumatic Eyes: normal inspection,+ blindness Neck: supple, Trachea midline Respiratory/Chest: Normal breath sounds, CTA, No accessory muscle use Cardiovascular: S1, S2, No murmur Abdomen/GI:Soft, mildly distended, non tender, Bowel sounds present, no guarding or rigidity Extremities/Musculoskeletal:normal inspection, no edema Neurologic/Psych: Alert, awake, grossly moves all extremities, + resting tremor--chronic Skin: normal color, warm Results & Data Results & Data Vital Signs (Past 12 Hours) Vital Signs Temp Pulse Pulse Resp BP Pulse Ox O2 Del Method 02/20/25 14:43 62 02/20/25 11:19 36.7 C 66 20 126/65 95 Room Air 02/20/25 08:11 37.1 C 69 20 143/74 H 95 Room Air 02/20/25 08:03 61 02/20/25 08:00 Room Air Laboratory Results Short CBC 02/20/25 Range/Units 05:13 WBC 5.13 (4.8-10.8) K/ul Hgb 8.5 L (14.0-18.0) g/dL Hct 27.3 L (42.0-52.0) % Plt Count 185 (130-400) K/uL BMP 02/20/25 05:13 Sodium 141 Potassium 3.8 Chloride 109 H Carbon Dioxide 27 BUN 37 H Creatinine 1.59 H Glucose 159 H Calcium 8.4 L
[2025-02-20] MEDS: LANTUS PER UNIT CHARGE SQ SCH (20:28)
[2025-02-21 07:29] LABS: Anion Gap 5.0 (3-11); Blood Urea Nitrogen 31.0 mg/dl (6-23); Calcium 8.7 mg/dl (8.6-10.3); Carbon Dioxide 29.0 mmol/L (21-32); Chloride 108.0 mmol/L (98-107); Creatinine Clr Calc Pharmacy 30.4 ml/min; Glucose 114.0 mg/dl (70-99(Fasting)); Potassium 3.7 mmol/L (3.5-5.1); Sodium 142.0 mmol/L (136-145)
[2025-02-21 08:23] VITALS: PULSE 84; TEMP 97.3; O2SAT 95
--- NOTE | 2025-02-21 09:27 | Hospitalist Progress Note ---
Date of Service February 21, 2025 Assessment & Plan (1) Confusion: Plan: 89-year-old male with past medical history significant for diabetic neuropathy, type 2 diabetes, diabetic retinopathy and blindness, CKD stage III, dyslipidemia,, stable angina, hypertension, GERD, essential tremor, vascular dementia, primary open-angle glaucoma both eyes severe stage, who lives at home with daughter and has24 x 7 caregivers was brought in for confusion. Daughter is in the room. Patient is wheelchair-bound. With assistance can transfer to wheelchair. As per daughter patient is alert and oriented to name and place. Can recognize family members. Since yesterday evening patient seems mostly drowsy. Seems weak. Not eating much. Not talking. Family worried about UTI and brought to the hospital. In the ER was spiking temperature. Currently very drowsy. When asked says he is doing okay. But not answering any other questions. As per daughter no nausea or vomiting. Complained of abdominal pain. No diarrhea or constipation. Micturating okay. Currently hemodynamics are okay. Altered mental status Likely acute metabolic encephalopathy due to UTI Cystitis--POA Right renal cyst--incidental finding on CT Delirium likely contributing as well --CT head:No acute intracranial abnormality detected at present. Extensive chronic microvascular ischemic changes and senile cortical atrophy, mild interval progression since prior CT study dated 03/06/2018 --CT ABD:Slightly thick-walled urinary bladder, despite suboptimal distention with subtle perivesical fat stranding, possible mild cystitis. Recommended clinical correlation with urine analysis. Stable 2.7 x 2.6 cm right upper pole renal cortical cyst. --Urine culture unreliable as sample obtained later after IV antibiotic administration --Blood culture negative to date --Urine culture not contributory Empirically on IV Rocephin>> transition to oral antibiotics to complete the course Minimize sedative medications as able Received IV fluids Decrease gabapentin to 300 mg 2 times a day --renally adjusted Mental status back to baseline per family Plan to discharge home today DM II HbA1c 7.4 Was hypoglycemic on 02/17/2025 due to poor oral intake Continue insulin per protocol Monitor blood glucose levels Adjust insulin as needed JENNIFER on CKD stage III Baseline creatinine ~1.5 Avoid nephrotoxic agents as able Monitor renal function Received IV fluids Bladder scan as needed Creatinine 1.4 today Ambulatory dysfunction Wheelchair-bound Blindness Needs assistance to transfer to wheelchair Dementia On donepezil Monitor for delirium GERD On famotidine and omeprazole BPH Finasteride and terazosin Monitor for retention Hypertension On metoprolol to tartrate, terazosin Monitor Hyperlipidemia On statin Depression On Zoloft Anemia Hemoglobin 9.1 around baseline Continue iron supplements DVT prophylaxis Heparin SQ CODE STATUS Full code Disposition home Admission and Anticipated Discharge Date Admission Date: February 17, 2025 Subjective Patient is seen and examined at bedside States feeling well today No complaints Discussed with patient's family at bedside Mental status back to baseline Denies any chest pain, dyspnea, abdominal pain, nausea, vomiting Plan to discharge home today Review of Systems Review of Systems: Other Physical Exam Physical Exam: Physical Exam: Vitals signs as noted above General Appearance:Moderately built and nourished, no apparent distress Head: normocephalic, Atraumatic Eyes: normal inspection,+ blindness Neck: supple, Trachea midline Respiratory/Chest: Normal breath sounds, CTA, No accessory muscle use Cardiovascular: S1, S2, No murmur Abdomen/GI:Soft, mildly distended, non tender, Bowel sounds present, no guarding or rigidity Extremities/Musculoskeletal:normal inspection, no edema Neurologic/Psych: Alert, awake, grossly moves all extremities, + resting tremor--chronic Skin: normal color, warm Results & Data Results & Data Vital Signs (Past 12 Hours) Vital Signs Temp Pulse Pulse Resp BP BP Pulse Ox 02/21/25 08:22 36.3 C L 84 20 163/69 H 95 02/21/25 07:26 61 02/21/25 04:13 36.6 C 72 20 126/69 94 02/21/25 01:22 36.6 C 75 20 120/85 94 02/20/25 23:59 59 L O2 Del Method 02/21/25 08:22 Room Air 02/21/25 07:26 02/21/25 04:13 Room Air 02/21/25 01:22 Room Air 02/20/25 23:59 Laboratory Results [facility] 02/21/25 05:53 Sodium 142 Potassium 3.7 Chloride 108 H Carbon Dioxide 29 BUN 31 H Creatinine 1.48 H Glucose 114 H Calcium 8.7
[2025-02-21 10:50] VITALS: BP 126/69
--- NOTE | 2025-02-21 11:31 | Discharge Summary ---
Date of Service February 21, 2025 Admission HPI Per Admitting Provider 89-year-old male with past medical history significant for diabetic neuropathy, type 2 diabetes, diabetic retinopathy and blindness, CKD stage III, dyslipidemia,, stable angina, hypertension, GERD, essential tremor, vascular dementia, primary open-angle glaucoma both eyes severe stage, who lives at home with daughter and has24 x 7 caregivers was brought in for confusion. Daughter is in the room. Patient is wheelchair-bound. With assistance can transfer to wheelchair. As per daughter patient is alert and oriented to name and place. Can recognize family members. Since yesterday evening patient seems mostly drowsy. Seems weak. Not eating much. Not talking. Family worried about UTI and brought to the hospital. In the ER was spiking temperature. Currently very drowsy. When asked says he is doing okay. But not answering any other questions. As per daughter no nausea or vomiting. Complained of abdominal pain. No diarrhea or constipation. Micturating okay. Currently hemodynamics are okay. Past medical history. As mentioned above Past surgical history. Cystoscopy. Tonsillectomy and adenoidectomy. Treatment of extensive retinopathy. Social history. No smoking. No alcohol use. No drug use. Family history. Brother has diabetes. Father had diabetes. Mother had heart disorder. Sister has diabetes. Admission Exam Per Admitting Provider Physical Exam: Vitals signs as noted above General Appearance:Moderately built and nourished, no apparent distress Head: normocephalic, Atraumatic Eyes: normal inspection,+ blindness Neck: supple, Trachea midline Respiratory/Chest: Normal breath sounds, CTA, No accessory muscle use Cardiovascular: S1, S2, No murmur Abdomen/GI:Soft, mildly distended, non tender, Bowel sounds present, no guarding or rigidity Extremities/Musculoskeletal:normal inspection, no edema Neurologic/Psych: Alert, awake, grossly moves all extremities, + resting tremor--chronic Skin: normal color, warm Principal Diagnosis Acute metabolic encephalopathy Urinary tract infection Right renal cyst Acute kidney injury on CKD stage III Dehydration Discharge Data Allergies Allergy/AdvReac Type Severity Reaction Status Date / Time metformin Allergy Unknown UNK Verified 02/24/24 09:12 salicylates Allergy Unknown . Verified 02/24/24 09:12 Consultations 02/17/25 05:18 ED Decision to Admit Stat Procedures Performed Laboratory Results WBC 5.13 K/ul (4.8-10.8) 02/20/25 05:13 RBC 3.05 M/uL (4.70-6.10) L 02/20/25 05:13 Hgb 8.5 g/dL (14.0-18.0) L 02/20/25 05:13 Hct 27.3 % (42.0-52.0) L 02/20/25 05:13 MCV 89.5 fL (80.0-100.0) 02/20/25 05:13 MCH 27.9 pg (25.0-34.0) 02/20/25 05:13 MCHC 31.1 g/dL (32.0-36.0) L 02/20/25 05:13 RDW Std Deviation 58.7 fL (36.4-46.3) H 02/20/25 05:13 RDW Coeff of Damaris 17.9 % (11.5-14.5) H 02/20/25 05:13 Plt Count 185 K/uL (130-400) 02/20/25 05:13 MPV 11.0 fL (9.4-12.4) 02/20/25 05:13 Immature Gran % (Auto) 0.5 % 02/18/25 05:10 Neut % (Auto) 74.7 % 02/18/25 05:10 Lymph % (Auto) 13.0 % 02/18/25 05:10 [place] % (Auto) 11.2 % 02/18/25 05:10 Eos % (Auto) 0.2 % 02/18/25 05:10 Baso % (Auto) 0.4 % 02/18/25 05:10 Neut # (Auto) 4.15 K/uL (1.40-6.50) 02/18/25 05:10 Lymph # (Auto) 0.72 K/uL (1.20-3.40) L 02/18/25 05:10 [place] # (Auto) 0.62 K/uL (0.11-0.59) H 02/18/25 05:10 Eos # (Auto) 0.01 K/uL (0.00-0.50) 02/18/25 05:10 Baso # (Auto) 0.02 K/uL (0.00-0.20) 02/18/25 05:10 Immature Gran # (Auto) 0.03 K/uL (0.01-0.20) 02/18/25 05:10 Sodium 142 mmol/L (136-145) 02/21/25 05:53 Potassium 3.7 mmol/L (3.5-5.1) 02/21/25 05:53 Chloride 108 mmol/L (98-107) H 02/21/25 05:53 Carbon Dioxide 29 mmol/L (21-32) 02/21/25 05:53 Anion Gap 5 (3-11) 02/21/25 05:53 BUN 31 mg/dl (6-23) H 02/21/25 05:53 Creatinine 1.48 mg/dl (0.6-1.4) H 02/21/25 05:53 Est Cr Clr Drug Dosing 30.4 ml/min 02/21/25 05:53 eGFR 44.94 02/21/25 05:53 BUN/Creatinine Ratio 20.9 (10-20) H 02/21/25 05:53 Glucose 114 mg/dl (70-99(Fasting)) H 02/21/25 05:53 POC Glucose 250 mg/dl (70-99) H 02/20/25 20:23 Estimat Average Glucose 166 mg/dl 02/18/25 05:10 Hemoglobin A1c 7.4 % (4.5-5.6) H 02/18/25 05:10 Lactate 1.8 mmol/L (0.4-2.0) 02/17/25 01:15 Calcium 8.7 mg/dl (8.6-10.3) 02/21/25 05:53 Magnesium 1.9 mg/dl (1.7-2.4) 02/18/25 05:10 Total Bilirubin 0.4 mg/dl (0.2-1.0) 02/17/25 01:25 AST 15 U/L (13-39) 02/17/25 01:25 ALT 14 U/L (7-52) 02/17/25 01:25 Alkaline Phosphatase 66 U/L (34-104) 02/17/25 01:25 Troponin I High Sens 23.8 pg/ml (0-20) H 02/17/25 07:12 Total Protein 6.6 gm/dl (6.0-8.3) 02/17/25 01:25 Albumin 3.1 gm/dl (3.4-5.0) L 02/17/25 01:25 Globulin 3.5 gm/dl (2.5-4.0) 02/17/25 01:25 Albumin/Globulin Ratio 0.9 (0.9-2) 02/17/25 01:25 Procalcitonin 0.44 ng/ml (0-0.5) 02/17/25 01:39 TSH 0.357 uIu/ml (0.300-4.500) 02/17/25 01:25 Urine Color Yellow 02/17/25 04:34 Urine Appearance Cloudy (Clear) A 02/17/25 04:34 Urine pH 5.0 (4.5-7.5) 02/17/25 04:34 Ur Specific Gordon 1.045 (1.000-1.030) H 02/17/25 04:34 Urine Protein 2+ (Negative) H 02/17/25 04:34 Urine Glucose (UA) Negative (Negative) 02/17/25 04:34 Urine Ketones Negative (Negative) 02/17/25 04:34 Urine Blood Trace (Negative) H 02/17/25 04:34 Urine Nitrite Negative (Negative) 02/17/25 04:34 Urine Bilirubin Negative (Negative) 02/17/25 04:34 Urine Urobilinogen Negative (Negative) 02/17/25 04:34 Ur Leukocyte Esterase Trace (Negative) H 02/17/25 04:34 Urine WBC (Auto) 6-10 /hpf (0-5) H 02/17/25 04:34 Urine RBC (Auto) 0-2 /hpf (0-2) 02/17/25 04:34 U Hyaline Cast (Auto) 3-5 /lpf (0-2) H 02/17/25 04:34 U Epithel Cells (Auto) 11-20 /hpf (0-2) H 02/17/25 04:34 Urine Bacteria (Auto) 1+ (None Seen) H 02/17/25 04:34 Urine Comment 02/17/25 04:34 SARS-CoV-2 (PCR) NEGATIVE (Negative) 02/17/25 02:40 Influenza Type A (PCR) Negative (Neg) 02/17/25 02:40 Influenza Type B (PCR) Negative (Neg) 02/17/25 02:40 RSV (RT-PCR) Negative (Neg) 02/17/25 02:40 Impressions Chest X-Ray 02/17/25 01:25 EXAM: XR chest 1V portable CLINICAL HISTORY: Weakness. TECHNIQUE: An X-ray image of the chest is obtained in AP projection. COMPARISON: 04/09/2024 X-ray. FINDINGS: Pulmonary Parenchyma: Mildly prominent bronchovascular markings likely denoting mild congestive and age related cchanges. Otherwise, the lungs are clear bilaterally. No evidence of consolidation, collapse, or focal opacities. No pulmonary nodules are identified. Blunted left costo-diaphragmatic recess. Clear right costo-diaphragmatic recess. Heart and Mediastinum: Heart size and shape are normal. No mediastinal widening or masses. No hilar or mediastinal lymphadenopathy. Bony Thorax: Bony thorax appears intact without fractures or deformities. Soft Tissues: Soft tissues overlying the chest wall are unremarkable. Chest monitor leads are seen. IMPRESSION: 1. Blunted left costo-diaphragmatic recess, may be a small effusion/thickening or atelectasis. New 2. No acute cardiopulmonary abnormalities are identified. 3. Bibasilar atelectatic changes are not seen at this time. 4. Clinical correlation and follow-up are recommended. Electronically signed by John Paul Rivas 02-17-2025 03:02 AM Abdomen/Pelvis CT 02/17/25 02:33 EXAM: CT abd pelvis IV con only CLINICAL HISTORY: Abd. pain - diffuse. TECHNIQUE: CT of the abdomen and pelvis was performed, with the following protocol: axial images, and reconstructed coronal and sagittal images. 93ml Optiray 320 Intravenous contrast was administered. One of the following dose reduction techniques was utilized for this exam: Automated exposure control, adjustment of the mA and/or kV according to patient size, and use of iterative reconstruction. COMPARISON: 04/09/2024 CT. FINDINGS: Sections of the lower thorax show minimal basal fibroatelectatic changes with posterior parietal pleural thickening in the bases. Small sliding hiatus hernia again noted. Abdomen: Liver: Normal in size, shape, and density. No focal lesions, cysts, or masses were identified. Redemonstration of left lobar pneumobilia and mildly dilated CBD, likely postsurgical changes. Gallbladder: Post cholecystectomy status. Pancreas: The pancreatic head, body, and tail are visualized and appear normal in size and density. Spleen: Normal in size, shape, and density. No splenic lesions or masses were identified. Kidneys and Adrenal Glands: Minimal bilateral perinephric fat stranding and fluid collections, stable. Non-specific Both kidneys are normal in size. No renal calculi or hydronephrosis. Stable 2.7 x 2.6 cm right upper pole renal cortical cyst. Adrenal glands are unremarkable. Pelvis: Urinary Bladder: Slightly thick-walled urinary bladder, despite suboptimal distention with subtle perivesical fat stranding, possible mild cystitis. Similar findings of demonstrated on prior CT study. The prostate is prominent in size, measuring 3.6 x 4 cm Calcifications of the seminiferous tubules were noted. Peritoneal and Retroperitoneal Structures: No free fluid or abnormal fluid collections were identified within the abdomen or pelvis. Small calcified structure in the right lower quadrant, likely a calcified node. The abdominal aorta and its branches show atherosclerotic changes with calcified plaques. Gastrointestinal tract: Mild fecal loading of the colon. The visualized small bowel loops are normal in caliber and appearance. The appendix is not well delineated. Bones and Soft Tissues: Moderate degenerative changes in the lumbar spine. Small umbilical hernia containing omental fat with minimal surrounding edema again noted. Linear soft tissue thickening/postsurgical changes in the supraumbilical region were again noted. Weakening and atrophy of the anterior abdominal wall. IMPRESSION: 1. Slightly thick-walled urinary bladder, despite suboptimal distention with subtle perivesical fat stranding, possible mild cystitis. Recommended clinical correlation with urine analysis. 2. Stable 2.7 x 2.6 cm right upper pole renal cortical cyst. 3. The rest of the findings, as described abov, aree grossly unchanged. Electronically signed by John Paul Rivas 02-17-2025 03:[address] 02/17/25 02:33 EXAM: CT head/brain wo con CLINICAL HISTORY: Altered ms. TECHNIQUE: Axial non-contrast CT scan of the brain was performed from the skull base to the high parietal region. One of the following dose reduction techniques was utilized for this exam: Automated exposure control, adjustment of the mA and/or kV according to patient size, and use of iterative reconstruction. COMPARISON: 03/06/2018 CT. FINDINGS: Brain Parenchyma: There are ill-defined iso-to hypodense areas in the subcortical and periventricular white matter bilaterally, representing chronic microvascular ischemic changes. The rest of the visualized brain parenchyma shows a normal appearance. No intracerebral or extra axial hematoma. Atherosclerotic intracranial carotid calcifications. Ventricular System: Prominent ventricular system. Subarachnoid Spaces: The cortical sulci and basal cisterns are prominent, consistent with senile changes. Cerebellum and Brainstem: No masses, lesions, or areas of abnormal density. Orbits: Normal appearance of the globes, optic nerves, and extraocular muscles. No evidence of orbital masses or abnormal density. Visualised Paranasal sinuses: Clear paranasal sinuses. Mastoid Air Cells: Clear mastoid air cells. Skull and soft tissue: Normal skull morphology. IMPRESSION: 1. No acute intracranial abnormality detected at present. 2. Extensive chronic microvascular ischemic changes and senile cortical atrophy, mild interval progression since prior CT study dated 03/06/2018 Electronically signed by John Paul Rivas 02-17-2025 03:54 AM Ordered Studies 02/17/25 02:33 CT Abd and Pelvis [CT abd pelvis IV con only] Stat CT head/brain wo con Stat Hospital Course (1) Confusion: 89-year-old male with past medical history significant for diabetic neuropathy, type 2 diabetes, diabetic retinopathy and blindness, CKD stage III, dyslipidemia,, stable angina, hypertension, GERD, essential tremor, vascular dementia, primary open-angle glaucoma both eyes severe stage, who lives at home with daughter and has24 x 7 caregivers was brought in for confusion. Daughter is in the room. Patient is wheelchair-bound. With assistance can transfer to wheelchair. As per daughter patient is alert and oriented to name and place. Can recognize family members. Since yesterday evening patient seems mostly drowsy. Seems weak. Not eating much. Not talking. Family worried about UTI and brought to the hospital. In the ER was spiking temperature. Currently very drowsy. When asked says he is doing okay. But not answering any other questions. As per daughter no nausea or vomiting. Complained of abdominal pain. No diarrhea or constipation. Micturating okay. Currently hemodynamics are okay. Altered mental status Likely acute metabolic encephalopathy due to UTI Cystitis--POA Right renal cyst--incidental finding on CT Delirium likely contributing as well --CT head:No acute intracranial abnormality detected at present. Extensive chronic microvascular ischemic changes and senile cortical atrophy, mild interval progression since prior CT study dated 03/06/2018 --CT ABD:Slightly thick-walled urinary bladder, despite suboptimal distention with subtle perivesical fat stranding, possible mild cystitis. Recommended clinical correlation with urine analysis. Stable 2.7 x 2.6 cm right upper pole renal cortical cyst. --Urine culture unreliable as sample obtained later after IV antibiotic administration --Blood culture negative to date --Urine culture not contributory Empirically on IV Rocephin>> transition to oral antibiotics to complete the course Minimize sedative medications as able Received IV fluids Decrease gabapentin to 300 mg 2 times a day --renally adjusted Mental status back to baseline per family Plan to discharge home today DM II HbA1c 7.4 Was hypoglycemic on 02/17/2025 due to poor oral intake Continue insulin per protocol Monitor blood glucose levels Adjust insulin as needed JENNIFER on CKD stage III Baseline creatinine ~1.5 Avoid nephrotoxic agents as able Monitor renal function Received IV fluids Bladder scan as needed Creatinine 1.4 today Ambulatory dysfunction Wheelchair-bound Blindness Needs assistance to transfer to wheelchair Dementia On donepezil Monitor for delirium GERD On famotidine and omeprazole BPH Finasteride and terazosin Monitor for retention Hypertension On metoprolol to tartrate, terazosin Monitor Hyperlipidemia On statin Depression On Zoloft Anemia Hemoglobin 9.1 around baseline Continue iron supplements DVT prophylaxis Heparin SQ CODE STATUS Full code Disposition home Total Time Total Time Spent Total Time Spent (In Minutes): 48 minutes Discharge Plan Discharge Items Patient Disposition: Home - Self-Care Reason For Visit: ALTERED MENTAL STATUS, LETHARGIC Discharge Diagnosis: Acute metabolic encephalopathy Urinary tract infection Right renal cyst Acute kidney injury on CKD stage III Dehydration Condition on Discharge: Serious Activity: Per Instructions section Exercise/Sports: Gradually increase as tolerated Non-emergency contact: Primary Care Provider Call non-emergency contact if: you have any medication questions, your symptoms worsen, your pain is concerning for you and you have a fever Follow-up/Referrals: Manjeet Mosley MD [Primary Care Provider] - Diet: Carb Consistent or DM2 and Heart Healthy Diet Texture: Dental soft (bite-sized) Addtl Attending Provider Instructions: -- Follow-up with your primary care physician Dr. Mosley in 1 week --Complete the antibiotic course--cefuroxime for 3 more days as prescribed. Start taking from 02/22/2025 --Your gabapentin dose is decreased to 300 mg twice a day based on your renal function Seek immediate medical attention if your symptoms reoccur or worsen Please review medication list provided on discharge for any medication changes as instructed. Please call if you have any questions or problems. You can reach a [facility] hospitalist on duty at [facility] 24 hours a day by calling Pending Studies at Discharge: Yes Studies:: Blood culture Stand-Alone Forms: My [facility], Smoking Cessation Medications and DC Order Prescriptions: New cefuroxime axetil 500 mg tablet 500 mg PO BID Qty: 6 0RF Continued furosemide 40 mg tablet 40 mg PO UD Rx Instructions: 40mg po daily on SAT, SAT and SATURDAY donepezil 10 mg tablet 10 mg PO DAILY aspirin 81 mg tablet,delayed release (DR/EC) 81 mg PO DAILY famotidine 20 mg tablet 20 mg PO BID terazosin 2 mg capsule 2 mg PO HS ferrous sulfate [FeroSul] 325 mg (65 mg iron) tablet 325 mg PO BID omeprazole 20 mg capsule,delayed release(DR/EC) 20 mg PO DAILY albuterol sulfate 90 mcg/actuation HFA aerosol inhaler 2 inh INHALATION Q6H PRN (Reason: Shortness Of Breath Or Wheezing) sertraline 50 mg tablet 25 mg PO DAILY finasteride 5 mg tablet 5 mg PO DAILY cholecalciferol (vitamin D3) [Vitamin D3] 25 mcg (1,000 unit) capsule 25 unit PO Q2D insulin aspart U-100 100 unit/mL (3 mL) insulin pen 1 unit SUBCUT UD Rx Instructions: 12uints before breakfast, 10units before lunch, 13 units before supper rosuvastatin 20 mg tablet 20 mg PO DAILY metoprolol tartrate 25 mg tablet 12.5 mg PO BID brimonidine-timolol [Combigan] 0.2-0.5 % drops 1 drp OPB BID insulin glargine-yfgn 100 unit/mL (3 mL) insulin pen 30 unit SUBCUT HS Changed gabapentin 300 mg capsule 300 mg PO BID Qty: 0 0RF Discontinued gabapentin 100 mg capsule 200 mg PO HS Discharge Orders: Discharge Order (Routine); Ordered 02/21/25 Ordered By: Jonah Acosta Admission Data Admit Date/Time: 02/17/25 06:13 Attending Provider: Jonah Acosta Admit Provider: Arley Nation Primary Care Provider: Manjeet Mosley Other Providers: Arley Nation Other Interventions: Discharge Summary Assessment (RN) Last Done: 02/21/25 10:47
== END 2025-02-21 11:27 | disposition home or self-care (01) | DRG 689 ==
LOC: ED 00:52 → EDINP 06:13 → 2N 07:37